=== PATIENT | female | born 1950 | race Caucasian/White ===

== ENCOUNTER 2024-03-18 12:58 | Outpatient (OUT) | payer MEDICARE, SELFPAY ==
[2024-03-18 14:35] LABS: Basophils Absolute Auto 0.1 10^3/uL (0.0-0.1); Basophils Percent Auto 0.9 % (0.2-2.0); Eosinophils Absolute Auto 0.1 10^3/uL (0.0-0.7); Eosinophils Percent Auto 1.7 % (0.9-7.0); Hematocrit 45.4 % (36.0-48.0); Hemoglobin 14.2 g/dL (12.0-16.0); Immature Granulocytes Abs Auto 0.03 10^3/uL (0.00-0.03); Immature Granulocytes Pct Auto 0.4 % (0.0-0.5); Lymphocytes Absolute Auto 2.5 10^3/uL (1.2-3.8); Lymphocytes Percent Auto 35.9 % (20.5-60.0); Mean Corpuscular HGB Conc 31.3 g/dL (29.9-35.2); Mean Corpuscular Hemoglobin 28.5 pg (26.7-34.0); Mean Corpuscular Volume 91.2 fL (81.0-99.0); Mean Platelet Volume 10.1 fL (9.5-13.5); Monocytes Absolute Auto 0.6 10^3/uL (0.3-0.8); Monocytes Percent Auto 8.2 % (1.7-12.0); Neutrophils Absolute Auto 3.7 10^3/uL (1.4-6.5); Neutrophils Percent Auto 52.9 % (43.0-75.0); Platelet Count 292 10^3/uL (150-450); Red Blood Count 4.98 10^6/uL (4.20-5.40); Red Cell Distribution Width 14.2 % (11.0-15.0)
[2024-03-18 14:53] LABS: Erythrocyte Sedimentation Rate 76 mm/hr (<=30)
[2024-03-18 15:56] LABS: Alanine Aminotransferase 19 U/L (14-59); Albumin Globulin Ratio 0.8; Albumin Level 3.1 g/dL (3.4-5.0); Alkaline Phosphatase 102 U/L (46-116); Anion Gap 9.5; Aspartate Amino Transferase 14 U/L (15-37); BUN Creatinine Ratio 17.2; Bilirubin Total 0.5 mg/dL (0.2-1.0); Calcium 8.8 mg/dL (8.5-10.1); Carbon Dioxide 30.3 mmol/L (21.0-32.0); Chloride 105 mmol/L (98-107); Estimated GFR (African America >60 (>=60); Estimated GFR (Non-African Ame 55 (>=60); Globulin 4.1 g/dL; Glucose 88 mg/dL (74-106); Potassium 3.8 mmol/L (3.5-5.1); Sodium 141 mmol/L (136-145); Total Protein 7.2 g/dL (6.4-8.2)
== END 2024-03-18 12:59 | disposition home or self-care (01) ==
PROVIDERS: PCP Family Medicine; Visit Provider Internal Medicine Rheumatology
DX: M06.9 Rheumatoid arthritis, unspecified (principal); M19.90 Unspecified osteoarthritis, unspecified site; Z51.81 Encounter for therapeutic drug level monitoring
CPT/HCPCS: 36415; 80053; 85025; 85652

== ENCOUNTER 2024-04-22 08:23 | Outpatient (OUT) | payer MEDICARE, SELFPAY ==
--- OUTSIDE RECORDS SUMMARY | 2024-04-22 08:34 | XMS_ITS | CCD ---
Author Organization [facility] Care Team Providers Care Stable Helper Name Role Phone REQUEST, NONE LISTED Attending Unavailable REQUEST, NONE LISTED Consulting Unavailable REQUEST, NONE LISTED Admitting Unavailable KUNS, KATE R Primary Care Unavailable Aldo Wynn Unavailable Tanna Paige Unavailable JOSEFINA MELISSA Attending Unavailable NON STAFF Primary Care Provider UnavailMD Aldo Diop Attending Provider Jenna BAND LINING BANDER-SHELL GRADERKate Primary Care Provider KATE THORNTON Referring Unavailable SHANS, ZAYRA Primary Care Unavailable NON STAFF Primary Care Provider UnavailMD Dax Elizabeth Attending Provider KATE THORNTON Attending Unavailable JENNA, KATE SKINNER Referring Unavailable KUNS, ZAYRA Primary Care Unavailable KATE THORNTON Attending Unavailable KATE THORNTON Referring Unavailable KUNS, ZAYRA Primary Care Unavailable KUNS, KATE R Referring Unavailable KUNS, KATE R Primary Care Unavailable KUNS, KATE R Referring Unavailable KUNS, KATE R Primary Care Unavailable Aldo Wynn Attending Unavailable Aldo Wynn Admitting Unavailable NON STAFF Primary Care Unavailable Aldo Wynn Admitting Unavailable NON STAFF Primary Care Unavailable Aldo Wynn Attending Unavailable Dax Coello Attending Unavailable Dax Coello Admitting Unavailable NON STAFF Primary Care Unavailable Allergies Allergy Classification Reported Allergen(s) Allergy Type Date of Onset Reaction(s) Facility (4 sources) Amino Acids; Translations: [LISINOPRIL] Drug Allergy 09-20-2019 [facility] Repository (9 sources) Lisinopril Drug Allergy 09-20-2019 [facility] [employer] Work Phone: (1 source) Lisinopril Drug Allergy 11-07-2023 [facility] Repository Medications Current Medications Medication Drug Class(es) Dates Sig (Normalized) Sig (Original) ALPRAZolam 0.25 mg oral tablet (9 sources) Benzodiazepine Start: 07-18-2022 take 1 tablet by mouth twice daily as needed for anxiety ALPRAZolam (XANAX) 0.25 mg tablet Indications: Situational anxiety Take 1 tablet (0.25 mg total) by mouth 2 (two) times a day as needed for anxiety. 30 tablet 0 07/18/2022 Active take 1 tablet by mouth every eig ht hours Xanax 0.25 MG 1 tablet Orally Three times a day Active amLODIPine 10 mg oral tablet (11 sources) Dihydropyridine Calcium Channel Ariana Start: 05-11-2023 End: 11-21-2023 take 1 tablet by mouth once daily Amlodipine Active 10 MG PO Daily November 07, 2023 1:00am [employer] tablet Orally Once a day; Note: Source Status: Taking; Provider: Tianna Carlson ( ) Aspir-81 81 MG (4 sources) take 1 tablet by mouth once daily Aspir-81 81 MG 1 tablet Orally Once a day Active aspirin 81 mg delayed release oral tablet (6 sources) Platelet Aggregation Inhibitor, Nonsteroidal Anti-inflammatory Drug Start: 11-07-2023 take 1 tablet by mouth once daily Aspirin Active 81 MG PO Daily November 07, 2023 1:00am [employer] tablet Orally Once a day; Note: Source Status: Taking; Provider: Tianna Carlson ( ) cholecalciferol 0.025 mg oral capsule (5 sources) Vitamin D cholecalciferol, vitamin D3, 25 mcg (1,000 unit) capsule daily. 0 Active FLUoxetine 10 mg oral capsule (11 sources) Serotonin Reuptake Inhibitor Start: 11-07-2023 take 1 capsule by mouth once daily in the morning Fluoxetine Active 10 MG PO Daily November 07, 2023 1:00am [employer] capsule in the morning Orally Once a day; Note: Source Status: Taking; Provider: Tianna Carlson ( ) Start: 02-28-2023 End: 11-21-2023 take 1 capsule by mouth in the morning FLUoxetine (PROzac) 20 mg capsule take 1 capsule by mouth in the morning 90 capsule 0 11/21/2023 Active take 1 capsule by [facility] every twenty-four hours FLUoxetine HCl 10 MG 1 capsule in the morning Orally Once a day Active take 1 capsule by [facility] once daily in the morning FLUoxetine HCl 10 MG 1 capsule in the morning Orally Once a day Active aewwctjyootc-tlbe-fcqgd acid (CENTRUM) 18-400 mg-mcg tablet (4 sources) take 1 tablet by mouth in the morning qvgxumajrkhf-seud-siqqg acid (CENTRUM) 18-400 mg-mcg tablet Take 1 tablet by mouth in the morning. 0 Active omeprazole 20 mg delayed release oral capsule (9 sources) Proton Pump Inhibitor take 1 capsule by mouth in the morning omeprazole (PriLOSEC) 20 mg capsule Take 1 capsule (20 mg total) by mouth in the morning. 0 Active predniSONE 10 mg oral tablet (2 sources) Start : 12-06 End: 12-16 take 1 tablet by mouth in the morning predniSONE (DELTASONE) 10 mg tablet Take 1 tablet (10 mg total) by mouth in the morning for 10 days. 10 tablet 0 12/07/2023 12/17/2023 Active rosuvastatin calcium 20 mg oral tablet (11 sources) HMG-CoA Reductase Inhibitor Start : 05-11 End: 11-20 take 1 tablet by mouth once daily Rosuvastatin Active 20 MG PO Daily November 07, 2023 1:00am [employer] tablet Orally Once a day; Note: Source Status: Taking; Provider: Tianna Carlson ( ) Completed/Discontinued Medications Medication Drug Class(es) Dates Sig (Normalized) Sig (Original) amoxicillin 875 mg oral tablet (2 sources) Penicillin-class Antibacterial Start: 2 take 1 tablet by mouth every twelve hours Amoxicillin 875 MG 1 tablet Orally every 12 hrs for 7 days Aug, Not-Taking/PRN diclofenac sodium 75 mg delayed release oral tablet (4 sources) Nonsteroidal Anti-inflammatory Drug Start: 1 take 1 tablet by mouth every twelve hours Diclofenac Sodium 75 MG 1 tablet as needed Orally Twice a day for 30 day(s) Aug, Not-Taking/PRN methylPREDNISolone 4 mg oral tablet (2 sources) Corticosteroid Start: 2 methylPREDNISolone 4 MG as directed Orally Once a day for 6 days Aug, Not-Taking/PRN multivitamin with iron (ONE DAILY PLUS IRON) tablet (2 sources) End: multivitamin with iron (ONE DAILY PLUS IRON) tablet every other day. 0 11/28/2023 Discontinued (Patient Stopped On Own) multivitamin wit h iron (ONE DAILY PLUS IRON) tablet every other day. 0 Active traMADol hydrochloride 50 mg oral tablet (7 sources) Opioid Agonist Start: 08-17-2021 End: 11-07-2023 take 1 tablet by mouth four times daily Tramadol (Ultram) 50 mg tablet Discontinued 50 MG PO Four times daily 08 06August 17, 2021 1:00am November 07, 2023 10:40am take 1 tablet by mele th every twenty-four hours traMADol HCl 50 MG 1 tablet as needed Orally Once a day Active triamcinolone acetonide 40 mg/ml injectable suspension (3 sources) Corticosteroid Start: 10-03-2023 Kenalog-40 Sep, 40 mg Start: 08-19-2021 Kenalog -40 mg Aug, 40 mg Problems Active Problems Problem Classification Problem Date Documented Da te Episodic/Chronic Anxiety disorders (2 sources) Panic disorder [episodic paroxysmal anxiety]; Translations: [Other specified anxiety disorders] Onset: 02-01-2024 Chronic Cardiac and circulatory congenital anomalies (5 sources) 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; Translations: [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] Onset: 10-02-2019 10-02-2019 Chronic Cardiac dysrhythmias (3 sources) Palpitations; Translations: [Palpitations] Onset: 11-28-2023 11-28-2023 Episodic Chronic kidney disease (6 sources) Chronic kidney disease stage 3A ; Translations: [Stage 3a chronic kidney disease] Onset: 04-02-2020 07-18-2022 Chronic Chronic kidney disease (2 sources) Chronic kidney disease; Translations: [Chronic kidney disease, stage 3a] Onset: 07-18-2022 Disorders of lipid metabolism (8 sources) Mixed hyperlipidemia; Translations: [Mixed hyperlipidemia] Onset: 02-11-2016 11-21-2023 Chronic Diverticulosis and diverticulitis (5 sources) Diverticulosis of large intestine; Translations: [Diverticulosis of large intestine without perforation or abscess without bleeding] Onset: 10-02-2019 10-02-2019 Chronic Essential hypertension (7 sources) Essential hypertension; Translations: [Essential (primary) hypertension] Onset: 02-11-2016 07-06-2022 Chronic Hypertension with complications and secondary hypertension (5 sources) Chronic kidney disease due to hypertension; Translations: [Hypertensive chronic kidney disease with stage 1 through stage 4 chronic kidney disease, or unspecified chronic kidney disease] Onset: 12-21-2021 07-18-2022 Chronic Immunizations and screening for infectious disease (3 sources) Contact with and (suspected) exposure to other viral communicable diseases; Translations: [Contact with and (suspected) exposure to other viral communicable diseases] Episodic Joint disorders and dislocations; trauma-related (6 sources) Derangement of left knee; Translations: [Unspecified internal derangement of left knee] Onset: 08-19-2021 Resolved: 09-28-2021 Chronic Joint disorders and dislocations; trauma-related (2 sources) Derangement of right knee; Translations: [Unspecified internal derangement of right knee] Chronic Joint disorders and dislocations; trauma-related (2 sources) Acute meniscal tear, medial; Translations: [Other tear of medial meniscus, current injury, right knee, initial encounter] 11-03-2023 Episodic Mood disorders (5 sources) Depressive disorder; Translations: [Depressive disorder] Onset: 02-11-2016 07-06-2022 Chronic Nutritional deficiencies (5 sources) Vitamin D deficiency; Translations: [Vitamin D deficiency, unspecified] Onset: 06-23-2021 07-18-2022 Chronic Osteoarthritis (13 sources) Arthritis of left knee; Translations: [Unilateral primary osteoarthritis, left knee] Onset: 08-19-2021 Resolved: 09-28-2021 Chronic Other gastrointestinal disorders (5 sources) Irritable bowel syndrome; Translations: [Irritable bowel syndrome without diarrhea] Onset: 02-11-2016 07-06-2022 Chronic Other non-epithelial cancer of skin (4 sources) Basal cell carcinoma of scalp; Translations: [Basal cell carcinoma of scalp] Episodic Other non-traumatic joint disorders (1 source) Polyarthritis, unspecified; Translations: [Polyarthritis, unspecified] Onset: 01-23-2024 Chronic Other non-traumatic joint disorders (1 source) Pain in right knee Episodic Other non-traumatic joint disorders (2 sources) Effusion of joint of multiple sites; Translations: [Effusion, unspecified joint] 11-28-2023 Episodic Other non-traumatic joint disorders (3 sources) Effusion, unspecified joint; Translations: [Effusion, unspecified joint] Onset: 11-28-2023 Episodic Otitis media and related conditions (1 source) Otitis media, unspecified, bilateral Episodic Sprains and strains (3 sources) Sprain of knee; Translations: [Sprain of unspecified site of left knee, initial encounter] 08-16-2023 Episodic Unclassified (1 source) swallen finger ,toes hands thighs Onset: 11-28-2023 Unclassified (1 source) Unilateral primary osteoarthritis, right knee; Translations: [Unilateral primary osteoarthritis, right knee] Onset: 10-24-2023 Unclassified (1 source) Pain in right knee; Translations: [Pain in right knee] Onset: 10-03-2023 Past or Other Problems Problem Classification Problem Date Documented Da te Episodic/Chronic Diabetes mellitus without complication (5 sources) Impaired fasting glycemia; Translations: [Impaired fasting glucose] Onset: 02-12-2016 07-06-2022 Episodic Gastrointestinal hemorrhage (5 sources) Rectal hemorrhage; Translations: [Hemorrhage of anus and rectum] Onset: 09-20-2019 10-02-2019 Episodic Mood disorders (5 sources) Mood disorders Onset: 03-20-2023 Resolved: 11-28-2023 03-20-2023 Other female genital disorders (5 sources) Polyp at cervical os; Translations: [Polyp of cervix uteri] Onset: 09-18-2019 07-06-2022 Episodic Other non-traumatic joint disorders (2 sources) Pain in left knee Onset: 08-19-2021 Resolved: 09-28-2021 Episodic Other nutritional; endocrine; and metabolic disorders (5 sources) Morbid obesity; Translations: [Morbid (severe) obesity due to excess calories] Onset: 09-18-2019 Resolved: 11-28-2023 07-06-2022 Chronic Results Test Name Value Interpretation Reference Range Facility COMPREHENSIVE METABOLIC PANE Bijan 02-01-2024 Albumin [Mass/Vol] 4.0 g/dL Normal 3.2-5.3 [facility] Comment on above: Performed By: #### C , 84270-1 #### [facility] ([id number]) [address], [address] [place] [address] ALP [Catalytic activity/Vol] 103 U/L Normal 39-130 [facility] Comment on above: Performed By: #### Pete VINES, 69233-4 #### [facility] ([id number]) [address], [address] [place] [address] ALT [Catalytic activity/Vol] 15 U/L Normal 0-31 [facility] Comment on above: Performed By: #### Pete VINES, 37423-6 #### [facility] ([id number]) [address], [address] [place] [address] Anion gap [Moles/Vol] 10 mmol/L Normal 5-15 [facility] Comment on above: Performed By: #### Pete VINES, 99925-8 #### [facility] ([id number]) [address], [address] [place] [address] AST [Catalytic activity/Vol] 15 U/L Normal 0-41 [facility] Comment on above: Performed By: #### Pete VINES, 32211-2 #### [facility] ([id number]) [address], [address] [place] [address] Bilirubin [Mass/Vol] 0.4 mg/dL Normal 0.3-1.2 [facility] Comment on above: Performed By: #### Pete VINES, 21488-0 #### [facility] ([id number]) [address], [address] [place] [address] Calcium [Mass/Vol] 8.9 mg/dL Normal 8.5-10.5 [facility] Comment on above: Performed By: #### Pete VINES, 68354-7 #### [facility] ([id number]) [address], [address] [place] [address] Chloride [Moles/Vol] 105 mmol/L Normal 98-109 [facility] Comment on above: Performed By: #### C JASMYN, 45562-7 #### [facility] ([id number]) [address], [address] [place] [address] CO2 [Moles/Vol] 24 mmol/L Normal 22-32 [facility] Comment on above: Performed By: #### Pete VINES, 63608-8 #### [facility] ([id number]) [address], [address] [place] [address] Creatinine [Mass/Vol] 1.00 mg/dL Normal 0.40-1.00 [facility] Comment on above: Result Comment: METH OD TRACEABLE TO IDMS STANDARD Performed By: #### Pete VINES, 55110-7 #### [facility] ([id number]) [address], [address] [place] [address] GFR/1.73 sq M.predicted among non-blacks MDRD (S/P/Bld) [Vol rate/Area] 60 mL/min/{1.73_m2} Normal >59 [facility] Comment on above: Result Comment: Reported eGFR is based on the CKD-EPI 2020 equation that does not use a race coefficient. Performed By: #### Pete VINES, 57153-1 #### [facility] ([id number]) [address], [address] [place] [address] Glucose [Mass/Vol] 100 mg/dL High 65-99 [facility] Comment on above: Performed By: #### Pete VINES, 73259-9 #### [facility] ([id number]) [address], [address] [place] [address] Potassium [Moles/Vol] 4.3 mmol/L Normal 3.5-5.0 [facility] Comment on above: Performed By: #### Pete VINES, 90722-5 #### [facility] ([id number]) [address], [address] [place] [address] Protein [Mass/Vol] 7.6 g/dL Normal 6.0-8.0 [facility] Comment on above: Performed By: #### Pete VINES, 10480-2 #### [facility] ([id number]) [address], [address] [place] [address] Sodium [Moles/Vol] 139 mmol/L Normal 134-146 [facility] Comment on above: Performed By: #### Pete VINES, 29332-8 #### [facility] ([id number]) [address], [address] [place] [address] Urea nitrogen [Mass/Vol] 21 mg/dL Normal 5-27 [facility] Comment on above: Performed By: #### Pete VINES, 12246-5 #### [facility] ([id number]) [address], [address] [place] [address] Lipid 1996 panelon 4 Cholesterol [Mass/Vol] 189 mg/dL Normal 150-200 [facility] Comment on above: Performed By: #### Pete VINES, 07132-5 #### [facility] ([id number]) [address], [address] [place] [address] Cholesterol in HDL [Mass/Vol] 65 mg/dL Normal >39 [facility] Comment on above: Result Comment: HDL <40 mg/dL - High Risk HDL > or = 40mg/dL- Desirable HDL >60 mg/dL - Negative Risk Performed By: #### Pete VINES, 10357-1 #### [facility] ([id number]) [address], [address] [place] [address] Cholesterol in LDL [Mass/Vol] 106 mg/dL Normal <130 [facility] Comment on above: Result Comment: LDL <100 mg/dL - Desirable LDL >160 mg/dL - High Risk Performed By: #### C JASMYN, 28330-4 #### [facility] ([id number]) [address], [address] [place] [address] Cholesterol in VLDL [Mass/Vol] 18 mg/dL Normal 0-30 [facility] Comment on above: Performed By: #### C JASMYN, 96662-8 #### [facility] ([id number]) [address], [address] [place] [address] CHOLESTEROL:HDL 2.9 Normal 1.0-5.0 [facility] Comment on above: Performed By: #### C JASMYN, 95258-8 #### [facility] ([id number]) [address], [address] [place] [address] Triglyceride [Mass/Vol] 91 mg/dL Normal 27-150 [facility] Comment on above: Performed By: #### C JASMYN, 73453-4 #### [facility] ([id number]) [address], [address] [place] [address] MANUEL Antinuclear Antibodieson 01-23-2024 Antinuclear Abs, IFA Negative Normal . [facility] Comment on above: Result Comment: Nega tive <1:80 Borderline 1:80 Positive >1:80 ICAP nomenclature: AC-0 For more information about Hep-2 cell patterns use ANApatterns.org, the official website for the International Consensus on Antinuclear Antibody (MANUEL) Patterns (ICAP). Performed at: - [facility] [id number] Lard Renderer: Sly Mack PhD, Phone: [phone] PERFORMED BY: [facility] [place] [address] PATHOLOGIST STATISTICAL ANALYST AYO CRUZ M.D. Performed By: #### A LDOLASE, MANUEL #### [facility] , #### CK, CMP, CRP, T4F, TSH3, CBC, ESR #### [facility] [address] [place] [address] [place] Alanine aminotransferase [En zymatic activity/volume] in Serum or PlasmaOrdered By: Dax Coello on 01-23-2024 ALT [Catalytic activity/Vol] 24 U/L Normal 7-52 [facility] Comment on above: Performed By: #### A LDOLASE, MANUEL #### [facility] , #### CK, CMP, CRP, T4F, TSH3, CBC, ESR #### [facility] [address] [place] [address] [place] Albumin [Mass/volume] in Ser um or Plasma by Bromocresol green (BCG) dye binding methoOrdered By: Dax Coello on 01-23-2024 Albumin BCG dye [Mass/Vol] 4.3 g/dL 3.5-5.7 [facility] Aldolaseon 01-23-2024 Aldolase 3.3 U/L Normal 3.3-10.3 [facility] Comment on above: Result Comment: Perf ormed at: - [facility] [address] [id number] Lard Renderer: Sly Mack PhD, Phone: [phone] PERFORMED BY: [place] [address] PATHOLOGIST STATISTICAL ANALYST AYO CRUZ M.D. Performed By: #### A LDOLASE, MANUEL #### [facility] , #### CK, CMP, CRP, T4F, TSH3, CBC, ESR #### [facility] [address] [place] [address] [place] Alkaline phosphatase [Enzyma tic activity/volume] in Serum or PlasmaOrdered By: Dax Coello on 01-23-2024 ALP [Catalytic activity/Vol] 119 U/L High 34-104 [facility] Comment on above: Performed By: #### A LDOLASE, MANUEL #### [facility] , #### CK, CMP, CRP, T4F, TSH3, CBC, ESR #### [address] Aspartate aminotransferase [ Enzymatic activity/volume] in Serum or PlasmaOrdered By: aDx Coello on 01-23-2024 AST [Catalytic activity/Vol] 30 U/L Normal 13-39 [facility] Comment on above: Performed By: #### A LDOLASE, MANUEL #### [facility] , #### CK, CMP, CRP, T4F, TSH3, CBC, ESR #### [address] Automated basophil %Ordered By: Dax Coello on 01-23-2024 Basophils/100 WBC (Bld) 0.9 % Normal . [facility] Comment on above: Performed By: #### A LDOLASE, MANUEL #### [facility] , #### CK, CMP, CRP, T4F, TSH3, CBC, ESR #### [address] Automated basophil countOrde red By: Dax Coello on 01-23-2024 Basophils (Bld) [#/Vol] 0.1 10*3/uL Normal 0.0-0.2 [facility] Comment on above: Performed By: #### A LDOLASE, MANUEL #### [facility] , #### CK, CMP, CRP, T4F, TSH3, CBC, ESR #### [address] Automated blood monocyte cou ntOrdered By: Dax Coello on 01-23-2024 Monocytes (Bld) [#/Vol] 0.5 10*3/uL Normal 0.0-0.8 [facility] Comment on above: Performed By: #### A LDOLASE, MANUEL #### [facility] , #### CK, CMP, CRP, T4F, TSH3, CBC, ESR #### [address] Automated eosinophil %Ordere d By: Dax Vergararow on 01-23-2024 Eosinophils/100 WBC (Bld) 2.4 % Normal . [facility] Comment on above: Performed By: #### A LDOLASE, MANUEL #### [facility] , #### CK, CMP, CRP, T4F, TSH3, CBC, ESR #### [facility] [address] Automated eosinophil countOr dered By: Dax Coello on 01-23-2024 Eosinophils (Bld) [#/Vol] 0.2 10*3/uL Normal 0.0-0.45 [facility] Comment on above: Performed By: #### A LDOLASE, MANUEL #### [facility] , #### CK, CMP, CRP, T4F, TSH3, CBC, ESR #### [facility] [address] [place] [address] Automated monocyte %Ordered By: Dax Vergararow on 01-23-2024 Monocytes/100 WBC (Bld) 6.8 % Normal . [facility] Comment on above: Performed By: #### A LDOLASE, MANUEL #### [facility] , #### CK, CMP, CRP, T4F, TSH3, CBC, ESR #### [address] Automated neutrophil %Ordere d By: Dax Vergararow on 01-23-2024 Neutrophils/100 WBC (Bld) 61.7 % Normal . [facility] Comment on above: Performed By: #### A LDOLASE, MANUEL #### [facility] , #### CK, CMP, CRP, T4F, TSH3, CBC, ESR #### [facility] [address] [place] [address] Bilirubin.total [Mass/volume ] in Serum or PlasmaOrdered By: Dax Vergararow on 01-23-2024 Bilirubin [Mass/Vol] 0.5 mg/dL Normal 0.3-1.0 [facility] Comment on above: Performed By: #### A LDOLASE, MANUEL #### [facility] , #### CK, CMP, CRP, T4F, TSH3, CBC, ESR #### [facility] [address] [place] [address] [place] C reactive protein [Mass/vol ume] in Serum or PlasmaOrdered By: Dax Coello on 01-23-2024 CRP [Mass/Vol] 1.0 mg/dL 0.0-0.5 [facility] C-Reactive Proteinon 024 C-Reactive Protein 1.0 mg/dL High 0.0-0.5 [facility] Comment on above: Performed By: #### A LDOLASE, MANUEL #### [facility] , #### CK, CMP, CRP, T4F, TSH3, CBC, ESR #### [place] [address] [place] Calcium [Mass/volume] in Ser um or PlasmaOrdered By: Dax Coello on 01-23-2024 Calcium [Mass/Vol] 9.6 mg/dL Normal 8.6-10.3 [facility] Comment on above: Performed By: #### A LDOLASE, MANUEL #### [facility] , #### CK, CMP, CRP, T4F, TSH3, CBC, ESR #### [facility] [address] [place] [address] [place] Carbon dioxide, total [Moles /volume] in Serum or PlasmaOrdered By: Dax Coello on 01-23-2024 CO2 [Moles/Vol] 25.5 mmol/L Normal 21.0-31.0 [facility] Comment on above: Performed By: #### A LDOLASE, MANUEL #### [facility] , #### CK, CMP, CRP, T4F, TSH3, CBC, ESR #### [place] [address] [place] Chloride [Moles/volume] in S beatris or PlasmaOrdered By: Dax Coello on 01-23-2024 Chloride [Moles/Vol] 107 mmol/L Normal 98-107 [facility] Comment on above: Performed By: #### A LDOLASE, MANUEL #### [facility] , #### CK, CMP, CRP, T4F, TSH3, CBC, ESR #### [facility] [address] Complete Blood Count Auto Di ffon 01-23-2024 Mean Corpuscular HGB Conc 33.2 g/dL Normal 32.0-35.0 [facility] Comment on above: Performed By: #### A LDOLASE, MANUEL #### [facility] , #### CK, CMP, CRP, T4F, TSH3, CBC, ESR #### [address] NRBC% 0.2 /100{WBC} Normal 0-0.[address] [facility] Comment on above: Performed By: #### A LDOLASE, MANUEL #### [facility] , #### CK, CMP, CRP, T4F, TSH3, CBC, ESR #### [address] Comprehensive Metabolic Pane bijan 01-23-2024 Albumin [Mass/Vol] 4.3 g/dL Normal 3.5-5.7 [facility] Comment on above: Performed By: #### A LDOLASE, MANUEL #### [facility] , #### CK, CMP, CRP, T4F, TSH3, CBC, ESR #### [place] [address] [place] GFR/1.73 sq M.predicted MDRD (S/P/Bld) [Vol rate/Area] 47.618 mL/min/{1.73_m2} Normal [facility] Comment on above: Performed By: #### A LDOLASE, MANUEL #### [facility] , #### CK, CMP, CRP, T4F, TSH3, CBC, ESR #### [facility] [address] [place] [address] Creatine kinase [Enzymatic a ctivity/volume] in Serum or PlasmaOrdered By: Dax Mode on 01-23-2024 CK [Catalytic activity/Vol] 69 U/L Normal 30-223 [facility] Comment on above: Result Comment: PERF ORMED BY: [place] [address] PATHOLOGIST STATISTICAL ANALYST AYO CRUZ M.D. Performed By: #### A LDOLASE, MANUEL #### [facility] , #### CK, CMP, CRP, T4F, TSH3, CBC, ESR #### [address] Creatinine [Mass/volume] in Serum or PlasmaOrdered By: Dax Coello on 01-23-2024 Creatinine [Mass/Vol] 1.21 mg/dL High 0.60-1.20 [facility] Comment on above: Performed By: #### A LDOLASE, MANUEL #### [facility] , #### CK, CMP, CRP, T4F, TSH3, CBC, ESR #### [facility] [address] [place] [address] Erythrocyte Sedimentation Ra solo 01-23-2024 ESR (Bld) [Velocity] 58 mm/h High 0-29 [facility] Comment on above: Result Comment: PERF ORMED BY: [place] [address] PATHOLOGIST STATISTICAL ANALYST AYO CRUZ M.D. Performed By: #### A LDOLASE, MANUEL #### [facility] , #### CK, CMP, CRP, T4F, TSH3, CBC, ESR #### [facility] [address] [place] [address] Erythrocyte distribution wid th [Ratio] by Automated countOrdered By: Dax Mode on 01-23-2024 Erythrocyte distribution width (RBC) [Ratio] 15.3 % Normal 11.9-15.3 [facility] Comment on above: Performed By: #### A LDOLASE, MANUEL #### [facility] , #### CK, CMP, CRP, T4F, TSH3, CBC, ESR #### [facility] [address] Erythrocyte sedimentation ra te by Photometric methodOrdered By: Daxsilvia Coello on 01-23-2024 ESR Photometric method (Bld) [Velocity] 58 mm/hr 0-29 [facility] Erythrocytes [#/volume] in B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 6-22 [facility] Comment on above: Performed By: #### 1 023, 7600 #### [facility] of [address], [address] [place] [address] World Geography Teacher: Napoleon Anne MD Calcium [Mass/Vol] 9.5 mg/dL Normal 8.6-10.4 [facility] Comment on above: Performed By: #### 1 023, 7600 #### [facility] [address], [address] [place] [address] World Geography Teacher: Napoleon Anne MD Chloride [Moles/Vol] 106 mmol/L Normal 98-110 [facility] Comment on above: Performed By: #### 1 023, 7600 #### [facility] [address], [address] [place] [address] World Geography Teacher: Napoleon Anne MD CO2 [Moles/Vol] 29 mmol/L Normal 20-32 [facility] Comment on above: Performed By: #### 1 023, 7600 #### [facility] [address], [address] [place] [address] World Geography Teacher: Napoleon Anne MD Creatinine [Mass/Vol] 0.86 mg/dL Normal 0.60-0.[address] [facility] [address] [facility] Comment on above: Result Comment: For patients >49 years of age, the reference limit for Creatinine is approximately 13% higher for people identified as -Uzbek. Performed By: #### 1 0231, 7600 #### [facility] [address], [address] [place] [address] World Geography Teacher: Napoleon Anne MD eGFR NON-AFR. [place] 68 mL/min/1.73m2 Normal > OR = 60 [facility] Comment on above: Performed By: #### 1 023, 7600 #### [facility] [place] [address] World Geography Teacher: Napoleon Anne MD GFR/1.73 sq M.predicted among blacks MDRD (S/P/Bld) [Vol rate/Area] 79 mL/min/{1.73_m2} Normal > OR = 60 [facility] Comment on above: Performed By: #### 1 023, 7600 #### [facility] [place] [address] World Geography Teacher: Napoleon Anne MD Globulin (S) [Mass/Vol] 2.7 g/dL Normal 1.9-3.7 [facility] Comment on above: Performed By: #### 1 230, 0 #### [facility] [place] [address] World Geography Teacher: Napoleon Anne MD Glucose [Mass/Vol] 100 mg/dL High 65-99 [facility] Comment on above: Result Comment: Fasting reference interval For someone without known diabetes, a glucose value between 100 and 125 mg/dL is consistent with prediabetes and should be confirmed with a follow-up test. Performed By: #### 1 230, 0 #### [facility] [place] [address] World Geography Teacher: Napoleon Anne MD Potassium [Moles/Vol] 4.1 mmol/L Normal 3.5-5.[address] [facility] Comment on above: Performed By: #### 1 023, 7600 #### [facility] [place] [address] World Geography Teacher: Napoleon Anne MD Protein [Mass/Vol] 7.0 g/dL Normal 6.1-8.1 [facility] Comment on above: Performed By: #### 1 023, 7600 #### [facility] [address] [place] [address] World Geography Teacher: Napoleon Anne MD Sodium [Moles/Vol] 141 mmol/L Normal 135-146 [facility] Comment on above: Performed By: #### 1 0231, 7600 #### [facility] [address], [address] [place] [address] World Geography Teacher: Napoleon Anne MD Urea nitrogen [Mass/Vol] 14 mg/dL Normal 7-25 [facility] Comment on above: Performed By: #### 1 0231, 7600 #### [facility] [address], [address] [place] [address] World Geography Teacher: Napoleon Anne MD LIPID PANEL, [facility] 12-03 Cholesterol [Mass/Vol] 191 mg/dL Normal <200 [facility] Comment on above: Order Comment: FASTI NG:YES FASTING: YES Performed By: #### 1 0231, 7600 #### [facility] [place] [address] World Geography Teacher: Napoleon Anne MD Cholesterol in HDL [Mass/Vol] 63 mg/dL Normal > OR = 50 [facility] Comment on above: Order Comment: FASTI NG:YES FASTING: YES Performed By: #### 1 0231, 7600 #### [facility] [place] [address] World Geography Teacher: Napoleon Anne MD Cholesterol in LDL [Mass/Vol] 103 mg/dL High [facility] Comment on above: Order Comment: FASTI NG:YES FASTING: YES Result Comment: Refe rence range: <100 Desirable range <100 mg/dL for primary prevention; <70 mg/dL for patients with CHD or diabetic patients with > or = 2 CHD risk factors. LDL-C is now calculated using the Victoriano calculation, which is a validated novel method providing better accuracy than the Friedewald equation in the estimation of LDL-C. Obinna DELCID et al. ALIREZA. 2013;310(19): 1219-5895 (http://education.Spark.Aptela/faq/JID235) Performed By: #### 1 023, 7600 #### [facility] [address], [address] [place] [address] World Geography Teacher: Napoleon Anne MD Cholesterol.total/Choles terol in HDL [Mass ratio] 3.0 {ratio} Normal <5.0 [facility] Comment on above: Order Comment: FASTI NG:YES FASTING: YES Performed By: #### 1 023, 7600 #### [facility] [address], [address] [place] [address] World Geography Teacher: Napoleon Anne MD NON HDL CHOLESTEROL 128 mg/dL (calc) Normal <130 [facility] Comment on above: Order Comment: FASTI NG:YES FASTING: YES Result Comment: For patients with diabetes plus 1 major ASCVD risk factor, treating to a non-HDL-C goal of <100 mg/dL (LDL-C of <70 mg/dL) is considered a therapeutic option. Performed By: #### 1 023, 0 #### [facility] [address], [address] [place] [address] World Geography Teacher: Napoleon Anne MD Triglyceride [Mass/Vol] 146 mg/dL Normal <150 [facility] Comment on above: Order Comment: FASTI NG:YES FASTING: YES Performed By: #### 1 023, 7600 #### [facility] [address], [address] [place] [address] World Geography Teacher: Napoleon Anne MD BASIC METABOLIC PANELon 10-2 0-2020 BUN/CREATININE RATIO NOT APPLICABLE Normal 6-22 [facility] Comment on above: Performed By: #### 7 18, 41804, 49373, 905, 6399, 622 #### [facility] [address], [address] [place] [address] World Geography Teacher: Napoleon Anne MD Calcium [Mass/Vol] 9.1 mg/dL Normal 8.6-10.4 [facility] Comment on above: Performed By: #### 7 18, 11339, 06408, 905, 6399, 622 #### [facility] of [address], [address] [place] [address] World Geography Teacher: Napoleon Anne MD Chloride [Moles/Vol] 103 mmol/L Normal 98-110 [facility] Comment on above: Performed By: #### 7 18, 52322, 87404, 905, 6399, 622 #### [facility] [address], [address] [place] [address] World Geography Teacher: Napoleon Anne MD CO2 [Moles/Vol] 22 mmol/L Normal 20-32 [facility] Comment on above: Performed By: #### 7 18, 81669, 30336, 905, 6399, 622 #### [facility] [place] [address] World Geography Teacher: Napoleon Anne MD Creatinine [Mass/Vol] 0.93 mg/dL Normal 0.60-0.[address] [facility] [address] [facility] Comment on above: Result Comment: For patients >49 years of age, the reference limit for Creatinine is approximately 13% higher for people identified as -Uzbek. Performed By: #### 7 18, 88456, 46850, 905, 6399, 622 #### [facility] [place] [address] World Geography Teacher: Napoleon Anne MD eGFR NON-AFR. [place] 62 mL/min/1.73m2 Normal > OR = 60 [facility] Comment on above: Performed By: #### 7 18, 69854, 11562, 905, 6399, 622 #### [facility] [address], [address] [place] [address] World Geography Teacher: Napoleon Anne MD GFR/1.73 sq M.predicted among blacks MDRD (S/P/Bld) [Vol rate/Area] 72 mL/min/{1.73_m2} Normal > OR = 60 [facility] Comment on above: Performed By: #### 7 18, 68595, 66088, 905, 6399, 622 #### [facility] [address], [address] [place], [place] [address] World Geography Teacher: Napoleon Anne MD Glucose [Mass/Vol] 100 mg/dL High 65-99 [facility] Comment on above: Result Comment: Fasting reference interval For someone without known diabetes, a glucose value between 100 and 125 mg/dL is consistent with prediabetes and should be confirmed with a follow-up test. Performed By: #### 7 18, 14271, 59947, 905, 6399, 622 #### [facility] [place] [address] World Geography Teacher: Napoleon Anne MD Potassium [Moles/Vol] 4.0 mmol/L Normal 3.5-5.[address] [facility] Comment on above: Performed By: #### 7 18, 06560, 58628, 905, 6399, 622 #### [facility] [place] [address] World Geography Teacher: Napoleon Anne MD Sodium [Moles/Vol] 139 mmol/L Normal 135-146 [facility] Comment on above: Performed By: #### 7 18, 98975, 69211, 905, 6399, 622 #### [facility] [place] [address] World Geography Teacher: Napoleon Anne MD Urea nitrogen [Mass/Vol] 15 mg/dL Normal 7-25 [facility] Comment on above: Performed By: #### 7 18, 67257, 25825, 905, 6399, 622 #### [facility] [place] [address] World Geography Teacher: Napoleon Anne MD CBC (INCLUDES DIFF/PLT)on Basophils (Bld) [#/Vol] 0.043 10*3/uL Normal 0-200 [facility] Comment on above: Performed By: #### 7 18, 51117, 92972, 905, 6399, 622 #### [facility] [place] [address] World Geography Teacher: Napoleon Anne MD Basophils/100 WBC (Bld) 0.7 % Normal [facility] Comment on above: Performed By: #### 7 18, 90839, 24895, 905, 6399, 622 #### [facility] of [place] [address] World Geography Teacher: Napoleon Anne MD Eosinophils (Bld) [#/Vol] 0.061 10*3/uL Normal 15-500 [facility] Comment on above: Performed By: #### 7 18, 80932, 21767, 905, 6399, 622 #### [facility] of [place] [address] World Geography Teacher: Napoleon Anne MD Eosinophils/100 WBC (Bld) 1.0 % Normal [facility] Comment on above: Performed By: #### 7 18, 44810, 94829, 905, 6399, 622 #### [facility] of [place] [address] World Geography Teacher: Napoleon Anne MD Erythrocyte distribution width (RBC) [Ratio] 14.7 % Normal 11.0-15.0 [facility] Comment on above: Performed By: #### 7 18, 20545, 41101, 905, 6399, 622 #### [facility] of [place] [address] World Geography Teacher: Napoleon Anne MD Hematocrit (Bld) [Volume fraction] 41.5 % Normal 35.0-45.0 [facility] Comment on above: Performed By: #### 7 18, 83341, 63799, 905, 6399, 622 #### [facility] of [place] [address] World Geography Teacher: Napoleon Anne MD Hemoglobin (Bld) [Mass/Vol] 13.5 g/dL Normal 11.7-15.5 [facility] Comment on above: Performed By: #### 7 18, 61190, 41192, 905, 6399, 622 #### [facility] of [address] [place] [address] World Geography Teacher: Napoleon Anne MD Lymphocytes (Bld) [#/Vol] 1.928 10*3/uL Normal 850-3900 [facility] Comment on above: Performed By: #### 7 18, 33114, 08106, 905, 6399, 622 #### [facility] of [place] [address] World Geography Teacher: Napoleon Anne MD Lymphocytes/100 WBC (Bld) 31.6 % Normal [facility] Comment on above: Performed By: #### 7 18, 11702, 90754, 905, 6399, 622 #### [facility] [place] [address] World Geography Teacher: Napoleon Anne MD MCH (RBC) [Entitic mass] 28.3 pg Normal 27.0-33.0 [facility] Comment on above: Performed By: #### 7 18, 47859, 35487, 905, 6399, 622 #### [facility] of [place] [address] World Geography Teacher: Napoleon Anne MD MCHC (RBC) [Mass/Vol] 32.5 g/dL Normal 32.0-36.[address] [facility] Comment on above: Performed By: #### 7 18, 74557, 66669, 905, 6399, 622 #### [facility] of [place] [address] World Geography Teacher: Napoleon Anne MD MCV (RBC) [Entitic vol] 87.0 fL Normal 80.0-100.0 [facility] Comment on above: Performed By: #### 7 18, 02956, 06448, 905, 6399, 622 #### [facility] of [place] [address] World Geography Teacher: Napoleon Anne MD Monocytes (Bld) [#/Vol] 0.409 10*3/uL Normal 200-950 [facility] Comment on above: Performed By: #### 7 18, 73686, 14348, 905, 6399, 622 #### [facility] of [place] [address] World Geography Teacher: Napoleon Anne MD Monocytes/100 WBC (Bld) 6.7 % Normal [facility] Comment on above: Performed By: #### 7 18, 40150, 25093, 905, 6399, 622 #### [facility] [place] [address] World Geography Teacher: Napoleon Anne MD Neutrophils (Bld) [#/Vol] 3.66 10*3/uL Normal 0607-4963 [facility] Comment on above: Performed By: #### 7 18, 74314, 32145, 905, 6399, 622 #### [facility] [place] [address] World Geography Teacher: Napoleon Anne MD Neutrophils/100 WBC (Bld) 60 % Normal [facility] Comment on above: Performed By: #### 7 18, 91667, 24640, 905, 6399, 622 #### [facility] of [place] [address] World Geography Teacher: Napoleon Anne MD Platelet mean volume (Bld) [Entitic vol] 10.5 fL Normal 7.5-12.5 [facility] Comment on above: Performed By: #### 7 18, 46046, 71829, 905, 6399, 622 #### [facility] of [place] [address] World Geography Teacher: Napoleon Anne MD Platelets (Bld) [#/Vol] 307 10*3/uL Normal 140-400 [facility] Comment on above: Performed By: #### 7 18, 05383, 15167, 905, 6399, 622 #### [facility] of [place] [address] World Geography Teacher: Napoleon Anne MD RBC (Bld) [#/Vol] 4.77 10*6/uL Normal 3.80-5.10 [facility] Comment on above: Performed By: #### 7 18, 85320, 25962, 905, 6399, 622 #### [facility] [address], [address] [place] [address] World Geography Teacher: Napoleon Anne MD WBC (Bld) [#/Vol] 6.1 10*3/uL Normal 3.8-10.8 [facility] Comment on above: Performed By: #### 7 18, 30328, 99036, 905, 6399, 622 #### [facility] [address], [address] [place] [address] World Geography Teacher: Napoleon Anne MD MAGNESIUMon 06-23-2021 Magnesium [Mass/Vol] 2.0 mg/dL Normal 1.5-2.5 [facility] Comment on above: Order Comment: FASTI NG:UNKNOWN FASTING: UNKNOWN Performed By: #### 7 18, 58733, 19919, 905, 6399, 622 #### [facility] [address], [address] [place] [address] World Geography Teacher: Napoleon Anne MD PHOSPHATE ( PHOSPHORUS)on 06-23-2021 Phosphate [Mass/Vol] 3.8 mg/dL Normal 2.1-4.3 [facility] Comment on above: Performed By: #### 7 18, 47997, 11926, 905, 6399, 622 #### [facility] [place] [address] World Geography Teacher: Napoleon Anne MD PTH, INTACT WITHOUT CALCIUMo n 06-23-2021 PARATHYROID HORMONE, INTACT 95 pg/mL High 14-64 [facility] Comment on above: Result Comment: Interpretive Guide Intact PTH Calcium ------- Normal Parathyroid Normal Normal Hypoparathyroidism Low or Low Normal Low Hyperparathyroidism Primary Normal or High High Secondary High Normal or Low Tertiary High High Non-Parathyroid Hypercalcemia Low or Low Normal High Performed By: #### 7 18, 60334, 32009, 905, 6399, 622 #### [facility] [place] [address] [facility], [address] [place], [place] [id number] World Geography Teacher: Napoleon Anne MD URIC ACIDon 06-23-2021 Urate [Mass/Vol] 4.8 mg/dL Normal 2.5-7.0 [facility] Comment on above: Result Comment: Ther apeutic target for gout patients: <6.0 mg/dL Performed By: #### 7 18, 46175, 15781, 905, 6399, 622 #### [facility] [place] [address] [facility], [address] [place], [place] [id number] World Geography Teacher: Napoleon Anne MD VITAMIN D,25-OH,TOTAL,IAon 1 VITAMIN D,25-OH,TOTAL,IA 26 ng/mL Low 30-100 [facility] Comment on above: Result Comment: Lanie min D Status 25-OH Vitamin D: Deficiency: <20 ng/mL Insufficiency: 20 - 29 ng/mL Optimal: > or = 30 ng/mL For 25-OH Vitamin D testing on patients on D2-supplementation and patients for whom quantitation of D2 and D3 fractions is required, the [facility](TM) 25-OH VIT D, (D2,D3), LC/MS/MS is recommended: order code 66433 (patients >2yrs). See Note 1 Note 1 For additional information, please refer to http://education.Spark.Aptela/faq/BWL645 (This link is being provided for informational/ educational purposes only.) Performed By: #### 7 18, 84563, 48791, 905, 6399, 622 #### [facility] [address], [address] [place] [address] World Geography Teacher: Napoleon Anne MD Vital Signs Date Time Vital Sign Value Performing Clinician Facility 11-28-2023 09:01-0400 Body height 157.5 cm aKte Thornton BAND LINING B[employer]LL GRADER Work Phone: [facility] 11-28-2023 09:01-0400 Body mass index (BMI) [Ratio] 37.86 kg/m2 Kate PETERSONSHELL GRADER Work Phone: [facility] 11-28-2023 09:01-0400 Body temperature 98.01 [degF] Kate Thornton APRN-SHELL GRADER Work Phone: [facility] 11-28-2023 09:01-0400 Body weight 93.89 kg Kate PETERSONSHELL GRADER Work Phone: [facility] 11-28-2023 09:01-0400 Diastolic blood pressure 70 mm[Hg] Kate Thornton APRN-SHELL GRADER Work Phone: [facility] 11-28-2023 09:01-0400 Heart rate 119 /min Kate PETERSONSHELL GRADER Work Phone: [facility] 11-28-2023 09:01-0400 Respiratory rate 18 /min Kate PETERSONSHELL GRADER Work Phone: [facility] 11-28-2023 09:01-0400 SaO2% (BldA) [Mass fraction] 95 % Kate PETERSONSHELL GRADER Work Phone: [facility] 11-28-2023 09:01-0400 Systolic blood pressure 90 mm[Hg] Kate PETERSONSHELL GRADER Work Phone: [facility] 11-07-2023 09:42-0500 Body height 157.48 cm [facility] 11-07-2023 09:42-0500 Body mass index (BMI) [Ratio] 37.5 kg/m2 [facility] 11-07-2023 09:42-0500 Body weight 92.98 kg [facility] 10-24-2023 11:23-0500 Diastolic blood pressure 97 mm[Hg] [facility] 10-24-2023 11:23-0500 Heart rate 107 /min [facility] 10-24-2023 11:23-0500 Respiratory rate 18 /min [facility] 10-24-2023 11:23-0500 SaO2% (BldA) [Mass fraction] 94 % [facility] 10-24-2023 11:23-0500 Systolic blood pressure 144 mm[Hg] [facility] 10-24-2023 11:19-0500 Body height 154.94 cm [facility] 10-24-2023 11:19-0500 Body weight 94.34 kg [facility] 10-03-2023 09:45-0500 Body height 154.94 cm Aldo Olexa Other [facility] 10-03-2023 09:45-0500 Body mass index (BMI) [Ratio] 39.3 kg/m2 Aldo Olexa Other [employer] Other 10-03-2023 09:45-0500 Body weight 94.35 kg Aldo Olexa Other [employer] Other 10-03-2023 09:45-0500 Body weight 94.34 kg [facility] [facility] 09-01-2022 12:45-0500 Body height 154.94 cm Tanna Paige Other [employer] Other 09-01-2022 12:45-0500 Body mass index (BMI) [Ratio] 40.24 kg/m2 Tanna Paige Other [employer] Other 09-01-2022 12:45-0500 Body weight 96.62 kg Tanna Paige Other [employer] Other 09-01-2022 12:45-0500 Diastolic blood pressure 75 mm[Hg] Tanna Paige Other [employer] Other 09-01-2022 12:45-0500 Respiratory rate 18 /min Tanna Paige Other [employer] Other 09-01-2022 12:45-0500 SaO2% (BldA) [Mass fraction] 96 % Tanna Paige Other [employer] Other 09-01-2022 12:45-0500 Systolic blood pressure 114 mm[Hg] Tanna Paige Other [employer] Other 09-28-2021 11:15-0500 Body height 154.94 cm Aldo Olexa Other [employer] Other 09-28-2021 11:15-0500 Body mass index (BMI) [Ratio] 41.75 kg/m2 Aldo Olexa Other [employer] Other 09-28-2021 11:15-0500 Body weight 100.25 kg Aldo Olexa Other [employer] Other 08-19-2021 10:30-0500 Body height 154.94 cm Aldo Olexa Other [employer] Other 08-19-2021 10:30-0500 Body mass index (BMI) [Ratio] 41.56 kg/m2 Aldo Olexa Other [employer] Other 08-19-2021 10:30-0500 Body weight 99.79 kg Aldo Olexa Other [employer] Other Encounters Encounter Date Encounter Type Care Provider Facility Start: 02-01-2024 End: 02-02-2024 ambulatory [facility] Syd[facility] Start: 02-01-2024 End: 02-01-2024 ambulatory [facility] Start: 01-23-2024 End: 01-23-2024 Patient encounter procedure [facility] [address] Work Phone: Start: 01-23-2024 End: 01-23-2024 ambulatory NON STAFF [facility] Work Phone: Start: 12-07-2023 Orders Only Kate Thornton [employer] Work Phone: [facility] Comment on above: Erosive (osteo)arthr itis (Primary Dx) Start: 12-04-2023 End: 12-05-2023 ambulatory KATE THORNTON [facility] Start: 11-28-2023 End: 11-29-2023 Orders Only Kate Thornton [employer] [facility] Comment on above: Swelling of multiple joints (Primary Dx) Start: 11-28-2023 End: 11-28-2023 Office outpatient visit 25 minutes Kate Thornton [employer] Work Phone: [facility] Comment on above: Swelling of multiple joints (Primary Dx); Stage 3a chronic kidney disease (CMS-HCC); Palpitations Start: 11-21-2023 Refill Kate Thornton [employer] Work Phone: [facility] Comment on above: Mixed hyperlipidemia Start: 11-07-2023 End: 11-07-2023 Patient encounter procedure [facility] Work Phone: Start: 10-24-2023 End: 10-24-2023 Patient encounter procedure [facility] [address] Work Phone: Start: 10-24-2023 End: 10-24-2023 ambulatory NON STAFF [facility] Work Phone: Start: 10-03-2023 Office outpatient vi sit 25 minutes Aldo Wynn [facility] Start: 10-03-2023 End: 10-03-2023 Patient encounter procedure [facility] Start: 10-03-2023 End: 10-03-2023 ambulatory NON STAFF [employer] Other Start: 10-03-2023 End: 10-03-2023 Patient encounter procedure [facility]- Start: 08-07-2023 End: 08-07-2023 ambulatory JOSEFINA MELISSA Not Available Start: 09-01-2022 End: 09-01-2022 ambulatory Tanna Paige Other [employer] Other Start: 09-01-2022 Office outpatient vi sit 15 minutes Tanna Grecia [facility] Start: 09-28-2021 End: 09-28-2021 ambulatory Aldo Olexa Other [employer] Other Start: 09-28-2021 Office outpatient vi sit 15 minutes Aldo Olexa [facility] Start: 08-19-2021 End: 08-19-2021 ambulatory Aldo Olexa Other [employer] Other Start: 08-19-2021 Office outpatient ne w 30 minutes Aldo Olexa [facility] Start: 10-29-2020 End: 10-30-2020 Patient encounter procedure NONE LISTED REQUEST Facility: Procedures Date Procedure Procedure Detail Performing Clinician Start: 02-01-2024 Follow-up visit Follow-up KATE LOR LENNON JENNA Start: 11-28-2023 Ecg routine ecg w/le ast 12 lds w/i&r Kate Thornton [employer] Work Phone: Start: 11-28-2023 Adult depression scr eening assessment Kate Thornton [employer] Work Phone: Start: 10-24-2023 MRI of right knee Start: 10-03-2023 X-ray of right knee Start: 05-12-2023 Mammography Kate Thornton [employer] Work Phone: Start: 03-20-2023 Adult depression scr eening assessment Kate Thornton [employer] Work Phone: Plan of Treatment Date Care Activity Detail Author Start: 05-12-2025 Screening for malign ant [facility]oplasm [facility] Start: 11-27-2024 Adult [facility]ening [facility] Start: 11-27-2024 Depression Screening [facility]ing [facility] Start: 11-27-2024 Fall Risk Screening Fall [facility] Start: 11-27-2024 Tobacco Screening [facility]ening [facility] Start: 06-02-2024 Adult BMI Screening Adult [facility] Start: 06-02-2024 Tobacco Screening Tobacco [facility]ening [facility] Start: 03-20-2024 Depression Screening Depression Scre [facility]ing [facility] Start: 03-20-2024 Medicare Annual Well ness Visit Medicare Annual Wellness [facility] Start: 03-18-2024 Fall Risk Screening Fall Risk Screen [facility] Start: 01-23-2024 [facility] Start: 11-28-2023 End: 11-27-2024 XR Hand - right 3 Views X-ray hand right minimum 3 views Imaging Routine Swelling of multiple joints Expected: 11/28/2023, Expires: 11/27/2024 [employer] Work Phone: Comment on above: Expected: 11/28/2023 , Expires: 11/27/2024 Start: 01-24-2013 DTaP,Tdap and Td Vac cines (1 - Tdap) DTaP,Tdap and Td Vaccines (1 - Tdap) [facility] Start: 2001 Administration of varicella zoster vaccine Zoster (Shingles) Vaccine (1 of 2) [facility] Start: 1969 Adult BMI Follow Up Plan Adult BMI Follow Up Plan [facility] PO[facility] EKG POCT EKG ECG Rou ivone Palpitations 11/28/2023 10:12 AM EDT [employer] Work Phone: Immunizations Immunization Date Immunization Notes Care Provider Anel newsome 07-21-2022 Covid-19, Mrna, Lnp- s, Bivalent, Pf, 50mcg/0.5ml or 25mcg/0.25ml Kate Thornton [employer] Work Phone: [facility] 07-21-2022 SARS-COV-2 (COVID-19 ) Vaccine, Unspecified Kate Thornton [employer] Work Phone: [facility] 06-29-2021 Influenza Vaccine, Quadrivalent, Adjuvanted Kate Thornton [employer] Work Phone: [facility] 11-03-2020 COVID-19, mRNA, LNP- S, PF, 30mcg/0.3mL Dose Kate Thornton [employer] Work Phone: [facility] 10-29-2020 COVID-19, mRNA, LNP- S, PF, 100mcg/0.5mL Dose Kate Thornton [employer] Work Phone: [facility] 06-02-2020 Influenza Vaccine, Quadrivalent, Adjuvanted Kate Thornton [employer] Work Phone: [facility] 07-18-2018 Influenza, injectabl e, Madin Manning Canine Kidney, preservative free, quadrivalent Kate Thornton [employer] Work Phone: [facility] 07-18-2018 pneumococcal polysaccharide vaccine, 23 valent Kate Thornton [employer] Work Phone: [facility] 02-13-2017 pneumococcal conjuga te vaccine, 13 valent Kate Thornton [employer] Work Phone: [facility] 01-23-2013 TD(adult) unspecifie d formulation Kate Thornton [employer] Work Phone: [facility] Payers Date Payer Category Payer Medicare [id number] 2022 Medicare AETNA MEDICARE A ETNA MEDICARE PLAN (PPO) [id number] 2022-[facility] [phone] [address] [place] [address] [id number] 1959 Self-pay 1950 Unknown [id number] 1950 Unknown [id number] 1950 Unknown [id number] 286 1950 Unknown [id number] 286 1951 Unknown [id number] 286 1951 Unknown [id number] 286 1950 Unknown [id number] 286 Private Health Insurance EB [id number] Unknown [id number] 93 Unknown [id number] 31 Unknown [id number] 31 Unknown [id number] 31 Social History Date Type Detail Facility Start: 10-15-2020 End: 06-02-2023 Sex Assigned At [facility] Start: 08-17-2021 End: 10-03-2023 Tobacco smoking status NHIS Never smoked tobacco (finding) [facility] Start: 1950 Sex Assigned At Female [facility] Start: 09-20-2019 End: 11-28-2023 Tobacco use and exposure Smokeless tobacco non-user [facility] Start: 06-02-2023 End: 11-28-2023 Alcohol intake Current drinker of alcohol (finding) [facility] Start: 10-15-2020 End: 06-02-2023 History of Social function [facility] Adolescent depressio n screening assessment 0 [facility] Start: 09-20-2019 Alcohol Comment Social/occasional [facility] Start: 1950 Sex Assigned At Not on file P [facility] Clinical Notes 12-04-2014 to 11-28-2023 Kate Thornton, [employer] - 11/28/2023 9:00 AM EDT Note Date & Type Note Facility 11-28-2023 History of Present illness Narrative Subjective Patient ID: Lisa Cochran is a 73 y.o. female. For the past week she has felt swollen in the large joints of both hands, right somewhat more than the left There is some redness in the right hand as well, it mostly affects the thumb and 2nd and 3rd joints Also her feet feel swollen to her in the forefoot and toes although no redness or increased discomfort Her knees while always painful feel more swollen, tight and achy than usual She has not had a change in medication recently She is not retaining fluid in her ankles in fact her weight from her last exam is down by 5 lbs She does feel like her heart races when she comes here but not typically, it was missing beats when it was racing when she came in today - she hasn't been lightheaded or dizzy No chest pain or pressure, no shortness of breath No change in bowels, she has had urinary urgency and incontinence for some time The following portions of the patient's history were reviewed and updated as appropriate: allergies, current medications, past family history, past medical history, past social history, past surgical history, problem list, and medication reconciliation was completed including current medication and post discharge medication. Review of Systems Constitutional: Negative for activity change, appetite change and fatigue. HENT: Negative. Eyes: Negative. Respiratory: Negative. Cardiovascular: Positive for palpitations. Negative for leg swelling. Gastrointestinal: Negative. Endocrine: Negative. Genitourinary: Negative. Musculoskeletal: Positive for arthralgias, joint swelling and neck stiffness. Neurological: Negative. Hematological: Negative. Psychiatric/Behavioral: Negative. Objective Physical Exam Vitals and nursing note reviewed. Constitutional: Appearance: She is obese. Eyes: Conjunctiva/sclera: Conjunctivae normal. Neck: Vascular: No carotid bruit. Cardiovascular: Rate and Rhythm: Tachycardia present. Rhythm irregular. Heart sounds: Normal heart sounds. No murmur heard. Pulmonary: Effort: Pulmonary effort is normal. Breath sounds: Normal breath sounds. Musculoskeletal: General: Tenderness present. Right hand: Swelling, tenderness and bony tenderness present. Decreased range of motion. Left hand: Swelling, tenderness and bony tenderness present. Decreased range of motion. Cervical back: Neck supple. Right lower leg: No edema. Left lower leg: No edema. Comments: The MCP joints of the thumbs and 2nd and 3rd joints of both hands are swollen, the right more than the left with erythema of the right, some increased warmth of the joints and tenderness of the joints and decreased flexion of the joints In the feet, the toes are only very mildly swollen but the right great toe is swollen and erythematous Lymphadenopathy: Cervical: No cervical adenopathy. Skin: General: Skin is warm and dry. Capillary Refill: Capillary refill takes less than 2 seconds. Neurological: Mental Status: She is alert and oriented to person, place, and time. Gait: Gait normal. Psychiatric: Thought Content: Thought content normal. Judgment: Judgment normal. Assessment/Plan Lisa was seen today for swallen finger ,toes hands thighs . Diagnoses and all orders for this visit: Swelling of multiple joints - Erythrocyte Sedimentation Rate (ESR); Future - Uric acid; Future Stage 3a chronic kidney disease ([facility]-HCC) - Comprehensive metabolic panel; Future - Magnesium; Future - Erythrocyte Sedimentation Rate (ESR); Future - Uric acid; Future - CBC auto differential; Future Palpitations - POCT EKG - Comprehensive metabolic panel; Future - Thyroid profile includes TSH FT4; Future EKG showed only an APC, otherwise a normal rhythm and her rate had recovered below 100 Will recheck her labs to check her kidney status as at times her gfr has been below 60 Also symptoms are suspicious for perhaps a gouty type arthritis Will see what labs show, in meantime, hydrate, decrease salt intake and only very lean sources of protein JOSSELYN Gomez 11/28/23 1217 documented in this encounter [facility] 11-28-2023 Evaluation note Diagnosis Swelling of multiple joints- Primary Stage 3a chronic kidney disease ([facility]-HCC) Palpitations documented in this encounter [facility]01-30-2024 Evaluation note* Encounter Date Diagnosis Assessment Notes Treatment Notes Treatment Clinical Notes Sep, Arthritis of right knee (ICD-10 - M17.11) I have concern for meniscal tear based on the history of this condition and physical exam findings. This condition could require surgical treatment. An MRI will be necessary to plan futher treatment. We performed a marcaine / kenalog cortisone injection into the knee joint under sterile technique. Patient tolerated the injection well without adverse reaction. Sep, Internal derangement of right knee (ICD-10 - M23.91) Sep, Acute pain of right knee (ICD-10 - M25.561) [employer] Other 12-29-2022 Evaluation note* Encounter Date Diagnosis Assessment Notes Treatment Notes Treatment Clinical Notes Aug, Contact with and (suspected) exposure to other viral communicable diseases (ICD-10 - Z20.828) Aug, Bilateral acute otitis media (ICD-10 - H66.93) Ear infections are often a secondary infection caused from an URI, the flu or allergies. Take medication as directed. Complete all doses, even if you feel better. Tylenol or ibuprofen can help with pain. Warm pack to area for comfort helps as well. Follow up with primary care provider if no improvement of symptoms. [employer] Other 01-25-2022 Evaluation note* Encounter Date Diagnosis Assessment Notes Treatment Notes Treatment Clinical Notes Sep, Acute pain of left knee (ICD-10 - M25.562) Sep, Arthritis of left knee (ICD-10 - M17.12) Patient is progressing well at this time. Discussed potential for meniscal tear, but as patient notes improvement at this time, we will hold off on MRI/treatment. Continue gentle motion and strengthening. Call with returns in pain. Sep, Internal derangement of left knee (ICD-10 - M23.92) [employer] Other 12-16-2021 Evaluation note* Encounter Date Diagnosis Assessment Notes Treatment Notes Treatment Clinical Notes Aug, Acute pain of left knee (ICD-10 - M25.562) Aug, Arthritis of left knee (ICD-10 - M17.12) The patient is suffering from degenerative arthritis involving the knee. We discussed the conservative treatment options which can be beneficial in relieving pain, including gentle non-impact motion exercise and non-steroidal anti-inflammatory medication. We discussed the use of occasional cortisone injections that can provide pain relief as well as hyaluronan lubricant injection. We performed a marcaine / kenalog cortisone injection into the knee joint under sterile technique. Patient tolerated the injection well without adverse reaction. If no improvement, may consider MRI to assess for meniscal tear. Aug, Internal derangement of left knee (ICD-10 - M23.92) [employer] Other 04-02-2015 History general Narrative - Reported* Type Description Date Medical History HTN Medical History Hyperlipidemia Medical History Basal Cell carcinoma of scalp Surgical History basal cell carcinoma of scalp ( Dr Llanos) 12/04/14 [employer] Other Evaluation noteNo assessment information available [facility] Work Phone: Evaluation note* Diagnosis Mixed hyperlipidemia [facility] Diagnosis Swelling of multiple joints- Primary [facility] in this [facility]* Diagnosis Erosive (osteo)arthritis- Primary [facility]* Diagnosis Erosive (osteo)arthritis- Primary documented in [facility]* Diagnosis Onset Date Resolution Status Acute medial meniscus tear of right knee acute Arthritis of right knee acut e [facility] Work Phone: InstructionsNot on filedocumented in this encounter [facility] on filedocumented in this encounter [facility] on filedocumented in this encounter [facility]ructionsNot on filedocumented in this encounter [facility] [employer] SystemInstructionsNot on filedocumented in this encounter [facility] SystemReason for referral (narrative)* Consultation (Routine) - Pending Review Specialty Diagnoses / Procedures Referred By Contjaden t Referred To Contact Rheumatology Diagnoses Erosive (osteo)arthritis Kate Thornton, CARLOS ALBERTO-FAUSTINA [address] [place] [address] Dax Coello MD [address] [place] [address] Referral ID Status Reason Start Date Expiration Date Visits Requested Visits Authorized [id number] Pending Review Specialty Services Required 12/07/2023 12/06/2024 1 1 [facility] [employer] [facility] Summary Purpose Family History No Family History Records Found Relationship Condition Age at Onset Recorded Date/T bruce father Hypertension Unknown Heart disease Unknown Unknown Not Specified Unknown Hypertension Unknown natural son Malignant neoplasm Unknown Advance Directives No Advanced Directives Records Found Advance Directive Response Recorded Date/ Time Advance Directives No August 8:21pm Advance Directive Response Recorded Date/ Time Advance Directives No August 9:21pm Chief Complaint and Reason for Visit Chief Complaint Op Lpn Medical Assistant Rt Knee Pain N x M25.561 M17.11 Chief Complaint MRI RESULTS r31.29 Reason for Visit Acute medial meniscu s tear of right knee Arthritis of right knee Additional Source Comments INFORMATION SOURCE (unrecogn ized section and content) DATE CREATED AUTHOR 10/27/2020 [facility] DATE CREATED AUTHOR AUTHOR'S ORGANIZ ATION 12/15/2021 [facility] DATE CREATED AUTHOR AUTHOR'S ORGANIZ ATION 08/08/2023 [facility] EPIC DATE CREATED AUTHOR AUTHOR'S ORGANIZ ATION 12/05/2023 [facility] DATE CREATED AUTHOR AUTHOR'S ORGANIZ ATION 02/02/2024 [facility] DATE CREATED AUTHOR AUTHOR'S ORGANIZ ATION 02/02/2024 [facility] DATE CREATED AUTHOR AUTHOR'S ORGANIZ ATION 02/06/2024 [facility] REASON FOR VISIT (unrecogniz ed section and content) Reason Comments Med Refill Reason Comments swallen finger ,toes hands thighs Care Teams (unrecognized sec tion and content) Team Status: Active Member Role Status Dates NON STAFF Primary Care Provider Active Team Status: Inactive Member Role Status Dates NON STAFF Primary Care Provider Active Start: October 03, 2023 End: October 03, 2023 Aldo Wynn MD Attending Provider Active Star t: October 03, 2023 End: October 03, 2023 Team Status: Inactive Member Role Status Dates Aldo Wynn MD Attending Provider Active Star t: October 03, 2023 End: October 03, 2023 Team Status: Inactive Member Role Status Dates Aldo Wynn MD Attending Provider Active Star t: October 24, 2023 End: October 24, 2023 NON STAFF Primary Care Provider Active Start: October 24, 2023 End: October 24, 2023 Stable Helper Relationship Specialty Start Date End Date Kate Thornton [employer]ER [address] [place] [place] [address] PCP - General Family Medicine 08/01/18 Stable Helper Relationship Specialty Start Date End Date Kate Thornton [employer]ER [address] [place] [address] PCP - General Family Medicine 08/01/18 Stable Helper Relationship Specialty Start Date End Date Kate hTornton [employer]ADER [address] [place] [address] PCP - General Family Medicine 08/01/18 Team Status: Inactive Member Role Status Dates NON STAFF Primary Care Provider Active Start: November 07, 2023 End: November 07, 2023 Aldo Wynn MD Attending Provider Active Star t: November 07, 2023 End: November 07, 2023 Team Status: Inactive Member Role Status Dates NON STAFF Primary Care Provider Active Start: January 23, 2024 End: January 23, 2024 Dax Coello MD Attending Provider Active St art: January 23, 2024 End: January 23, 2024 Goals (unrecognized section and content) Goals may be documented in a n alternate section FOR RECORDS PERTAINING TO PATIENTS WHO ARE OR HAVE BEEN ENROLLED IN A CHEMICAL DEPENDENCY/SUBSTANCEABUSE PROGRAM, SOME INFORMATION MAY BE OMITTED. This clinical summary was aggregated from multiple sources. Caution should be exercised in using it in the provision of clinical care. This summary normalizes information from multiple sources, and as a consequence, information in this document may materially change the coding, format and clinical context of patient data. In addition, data may be omitted in some cases. CLINICAL DECISIONS SHOULD BE BASED ON THE PRIMARY CLINICAL RECORDS. [facility] provides no warranty or guarantee of the accuracy or completeness of information in this document.
[2024-04-22 08:49] LABS: Basophils Absolute Auto 0.1 10^3/uL (0.0-0.1); Basophils Percent Auto 0.7 % (0.2-2.0); Eosinophils Absolute Auto 0.1 10^3/uL (0.0-0.7); Eosinophils Percent Auto 0.8 % (0.9-7.0); Hematocrit 42.5 % (36.0-48.0); Hemoglobin 13.7 g/dL (12.0-16.0); Immature Granulocytes Abs Auto 0.02 10^3/uL (0.00-0.03); Immature Granulocytes Pct Auto 0.2 % (0.0-0.5); Lymphocytes Absolute Auto 0.9 10^3/uL (1.2-3.8); Lymphocytes Percent Auto 10.7 % (20.5-60.0); Mean Corpuscular HGB Conc 32.2 g/dL (29.9-35.2); Mean Corpuscular Hemoglobin 28.7 pg (26.7-34.0); Mean Corpuscular Volume 88.9 fL (81.0-99.0); Mean Platelet Volume 10.2 fL (9.5-13.5); Monocytes Absolute Auto 0.6 10^3/uL (0.3-0.8); Monocytes Percent Auto 6.6 % (1.7-12.0); Neutrophils Absolute Auto 6.9 10^3/uL (1.4-6.5); Platelet Count 307 10^3/uL (150-450); Red Blood Count 4.78 10^6/uL (4.20-5.40); Red Cell Distribution Width 13.4 % (11.0-15.0); White Blood Count 8.5 10^3/uL (4.0-11.0)
[2024-04-22 09:01] LABS: Erythrocyte Sedimentation Rate 92 mm/hr (<=30)
[2024-04-22 10:36] LABS: Alanine Aminotransferase 19 U/L (14-59); Albumin Globulin Ratio 0.7; Alkaline Phosphatase 111 U/L (46-116); Anion Gap 10.7; Aspartate Amino Transferase 9 U/L (15-37); Bilirubin Total 0.5 mg/dL (0.2-1.0); Calcium 8.7 mg/dL (8.5-10.1); Carbon Dioxide 28.3 mmol/L (21.0-32.0); Chloride 102 mmol/L (98-107); Estimated GFR (African America 59 (>=60); Estimated GFR (Non-African Ame 49 (>=60); Globulin 4.2 g/dL; Glucose 103 mg/dL (74-106); Sodium 137 mmol/L (136-145); Total Protein 7.2 g/dL (6.4-8.2)
== END 2024-04-22 08:24 | disposition home or self-care (01) ==
LOC: LAB 08:25
PROVIDERS: PCP Family Medicine; Visit Provider Internal Medicine Rheumatology
DX: M06.9 Rheumatoid arthritis, unspecified (principal); M19.90 Unspecified osteoarthritis, unspecified site; Z51.81 Encounter for therapeutic drug level monitoring
CPT/HCPCS: 36415; 80053; 85025; 85652

== ENCOUNTER 2024-05-20 13:25 | Outpatient (OUT) | payer MEDICARE, SELFPAY ==
--- OUTSIDE RECORDS SUMMARY | 2024-05-20 13:42 | XMS_ITS | CCD ---
Author Organization [facility] Care Team Providers Care Rod Cup Filler Name Role Phone REQUEST, NONE LISTED Attending Unavailable REQUEST, NONE LISTED Consulting Unavailable REQUEST, NONE LISTED Admitting Unavailable KUNS, KATE R Primary Care Unavailable Aldo Wynn Unavailable Tanna Paige Unavailable JOSEFINA MELISSA Attending Unavailable NON STAFF Primary Care Provider UnavailMD Aldo Diop Attending Provider Jenna SINTERING PLANT SUPERVISOR-LEAD NITRATE PROCESSORKate Primary Care Provider KATE THORNTON Referring Unavailable SHANS, ZAYRA Primary Care Unavailable NON STAFF Primary Care Provider UnavailMD Dax Elizabeth Attending Provider [phone] KATE THORNTON Attending Unavailable JENNA, KATE SKINNER Referring Unavailable KUNS, ZAYRA Primary Care Unavailable KATE THORNTON Attending Unavailable KATE THORNTON Referring Unavailable KUNS, ZAYRA Primary Care Unavailable KUNS, KATE R Referring Unavailable KUNS, KATE R Primary Care Unavailable KUNS, KATE R Referring Unavailable KUNS, KATE R Primary Care Unavailable Aldo Wynn Attending Unavailable Adlo Wynn Admitting Unavailable NON STAFF Primary Care Unavailable Aldo Wynn Admitting Unavailable NON STAFF Primary Care Unavailable Aldo Wynn Attending Unavailable Dax Coello Attending Unavailable Dax Coello Admitting Unavailable NON STAFF Primary Care Unavailable Allergies Allergy Classification Reported Allergen(s) Allergy Type Date of Onset Reaction(s) Facility (4 sources) Amino Acids; Translations: [LISINOPRIL] Drug Allergy 09-20-2019 [facility] Repository (9 sources) Lisinopril Drug Allergy 09-20-2019 [facility] Work Phone: (1 source) Lisinopril Drug Allergy 11-07-2023 [facility] Repository Medications Current Medications Medication Drug [...] 0 11/21/2023 Active take 1 capsule by [facility] every twenty-four hours FLUoxetine HCl 10 MG 1 capsule in the morning Orally Once a day Active take 1 capsule by [facility] once daily in the morning FLUoxetine HCl 10 MG 1 capsule in the morning Orally Once a day Active oytaxbfspeji-uwis-cvvje acid (CENTRUM) 18-400 mg-mcg tablet (4 sources) take 1 tablet by mouth in the morning klcapyfbnxcy-rmno-lprzf acid (CENTRUM) 18-400 mg-mcg tablet Take 1 [...] 02-01-2024 Albumin [Mass/Vol] 4.0 g/dL Normal 3.2-5.3 [facility] Comment on above: Performed By: #### C , 39494-5 #### [facility] ([id number]) [address] [place] [address] ALP [Catalytic activity/Vol] 103 U/L Normal 39-130 [facility] Comment on above: Performed By: #### Pete VINES, 92730-5 #### [facility] ([id number]) [address], [address] [place] [address] ALT [Catalytic activity/Vol] 15 U/L Normal 0-31 [facility] Comment on above: Performed By: #### Pete VINES, 69105-4 #### [facility] ([id number]) [address], [address] [place] [address] Anion gap [Moles/Vol] 10 mmol/L Normal 5-15 [facility] Comment on above: Performed By: #### Pete VINES, 58595-5 #### [facility] ([id number]) [address], [address] [place] [address] AST [Catalytic activity/Vol] 15 U/L Normal 0-41 [facility] Comment on above: Performed By: #### Pete VINES, 83900-5 #### [facility] ([id number]) [address], [address] [place] [address] Bilirubin [Mass/Vol] 0.4 mg/dL Normal 0.3-1.2 [facility] Comment on above: Performed By: #### Pete VINES, 82884-3 #### [facility] ([id number]) [address], [address] [place] [address] Calcium [Mass/Vol] 8.9 mg/dL Normal 8.5-10.5 [facility] Comment on above: Performed By: #### Pete VINES, 13569-9 #### [facility] ([id number]) [address], [address] [place] [address] Chloride [Moles/Vol] 105 mmol/L Normal 98-109 [facility] Comment on above: Performed By: #### C JASMYN, 00281-0 #### [facility] ([id number]) [address], [address] [place] [address] CO2 [Moles/Vol] 24 mmol/L Normal 22-32 [facility] Comment on above: Performed By: #### Pete VINES, 64177-1 #### [facility] ([id number]) [address], [address] [place] [address] Creatinine [Mass/Vol] 1.00 mg/dL Normal 0.40-1.00 [facility] Comment on above: Result Comment: METH OD TRACEABLE TO IDMS STANDARD Performed By: #### Pete VINES, 70440-9 #### [facility] ([id number]) [address], [address] [place] [address] GFR/1.73 sq M.predicted among non-blacks MDRD (S/P/Bld) [Vol rate/Area] 60 mL/min/{1.73_m2} Normal >59 [facility] Comment on above: Result Comment: Reported eGFR is based on the CKD-EPI 2020 equation that does not use a race coefficient. Performed By: #### Pete VINES, 11616-5 #### [facility] ([id number]) [address], [address] [place] [address] Glucose [Mass/Vol] 100 mg/dL High 65-99 [facility] Comment on above: Performed By: #### Pete VINES, 41853-6 #### [facility] ([id number]) [address], [address] [place] [address] Potassium [Moles/Vol] 4.3 mmol/L Normal 3.5-5.0 [facility] Comment on above: Performed By: #### Pete VINES, 32346-6 #### [facility] ([id number]) [address], [address] [place] [address] Protein [Mass/Vol] 7.6 g/dL Normal 6.0-8.0 [facility] Comment on above: Performed By: #### Pete VINES, 46483-8 #### [facility] ([id number]) [address], [address] [place] [address] Sodium [Moles/Vol] 139 mmol/L Normal 134-146 [facility] Comment on above: Performed By: #### Pete VINES, 37639-4 #### [facility] ([id number]) [address], [address] [place] [address] Urea nitrogen [Mass/Vol] 21 mg/dL Normal 5-27 [facility] Comment on above: Performed By: #### Pete VINES, 03468-6 #### [facility] ([id number]) [address], [address] [place] [address] Lipid 1996 panelon 4 Cholesterol [Mass/Vol] 189 mg/dL Normal 150-[address] [facility] Comment on above: Performed By: #### Pete VINES, 78375-2 #### [facility] ([id number]) [address], [address] [place] [address] Cholesterol in HDL [Mass/Vol] 65 mg/dL Normal >39 [facility] Comment on above: Result Comment: HDL <40 mg/dL - High Risk HDL > or = 40mg/dL- Desirable HDL >60 mg/dL - Negative Risk Performed By: #### Pete VINES, 67653-3 #### [facility] ([id number]) [address], [address] [place] [address] Cholesterol in LDL [Mass/Vol] 106 mg/dL Normal <130 [facility] Comment on above: Result Comment: LDL <100 mg/dL - Desirable LDL >160 mg/dL - High Risk Performed By: #### C JASMYN, 81833-1 #### [facility] ([id number]) [address], [address] [place] [address] Cholesterol in VLDL [Mass/Vol] 18 mg/dL Normal 0-30 [facility] Comment on above: Performed By: #### C JASMYN, 31367-1 #### [facility] ([id number]) [address], [address] [place] [address] CHOLESTEROL:HDL 2.9 Normal 1.0-5.0 [facility] Comment on above: Performed By: #### C JASMYN, 25105-3 #### [facility] ([id number]) [address], [address] [place] [address] Triglyceride [Mass/Vol] 91 mg/dL Normal 27-150 P [facility] Comment on above: Performed By: #### C JASMYN, 74730-0 #### [facility] ([id number]) [address], [address] [place] [address] MANUEL Antinuclear Antibodieson 01-23-2024 Antinuclear Abs, IFA Negative Normal . [facility] Comment on above: Result Comment: Nega tive <1:80 Borderline 1:80 Positive >1:80 ICAP nomenclature: AC-0 For more information about Hep-2 cell patterns use ANApatterns.org, the official website for the International Consensus on Antinuclear Antibody (MANUEL) Patterns (ICAP). Performed at: - [facility] [id number] Printing Machine Mechanic: Sly Mack PhD, Phone: [phone] PERFORMED BY: [facility] [place] [address] PATHOLOGIST LEAD LAYING AND GLUING MACHINE OPERATOR AYO CRUZ M.D. Performed By: #### A LDOLASE, MANUEL #### [facility] , #### CK, CMP, CRP, T4F, TSH3, CBC, ESR #### [facility] [address] [place] [address] [place] Alanine aminotransferase [En zymatic activity/volume] in Serum or PlasmaOrdered By: Dax Coello on 01-23-2024 ALT [Catalytic activity/Vol] 24 U/L Normal 7-52 [facility] Comment on above: Performed By: #### A LDOLASE, MANUEL #### [facility] , #### CK, CMP, CRP, T4F, TSH3, CBC, ESR #### [facility] [address] [place] [address] [place] Albumin [Mass/volume] in Ser um or Plasma by Bromocresol green (BCG) dye binding methoOrdered By: Dax Coello on 01-23-2024 Albumin BCG dye [Mass/Vol] 4.3 g/dL 3.5-5.7 [facility] Aldolaseon 01-23-2024 Aldolase 3.3 U/L Normal 3.3-10.3 [facility] Comment on above: Result Comment: Perf ormed at: - [facility] [address] [id number] Printing Machine Mechanic: Sly Mack PhD, Phone: [phone] PERFORMED BY: [place] [address] PATHOLOGIST LEAD LAYING AND GLUING MACHINE OPERATOR AYO CRUZ M.D. Performed By: #### A LDOLASE, MANUEL #### [facility] , #### CK, CMP, CRP, T4F, TSH3, CBC, ESR #### [facility] [address] [place] [address] [place] Alkaline phosphatase [Enzyma tic activity/volume] in Serum or PlasmaOrdered By: Dax Coello on 01-23-2024 ALP [Catalytic activity/Vol] 119 U/L High 34-104 [facility] Comment on above: Performed By: #### A LDOLASE, MANUEL #### [facility] , #### CK, CMP, CRP, T4F, TSH3, CBC, ESR #### [address] Aspartate aminotransferase [ Enzymatic activity/volume] in Serum or PlasmaOrdered By: Dax Coello on 01-23-2024 AST [Catalytic activity/Vol] 30 U/L Normal 13-39 [facility] Comment on above: Performed By: #### A LDOLASE, MANUEL #### [facility] , #### CK, CMP, CRP, T4F, TSH3, CBC, ESR #### [address] Automated basophil %Ordered By: Dax Coello on 01-23-2024 Basophils/100 WBC (Bld) 0.9 % Normal . [facility] Comment on above: Performed By: #### A LDOLASE, MANUEL #### [facility] , #### CK, CMP, CRP, T4F, TSH3, CBC, ESR #### [address] Automated basophil countOrde red By: Dax oCello on 01-23-2024 Basophils (Bld) [#/Vol] 0.1 10*3/uL Normal 0.0-0.2 [facility] Comment on above: Performed By: #### A LDOLASE, MANUEL #### [facility] , #### CK, CMP, CRP, T4F, TSH3, CBC, ESR #### [address] Automated blood monocyte cou ntOrdered By: Dax Coello on 01-23-2024 Monocytes (Bld) [#/Vol] 0.5 10*3/uL Normal 0.0-0.8 [facility] Comment on above: Performed By: #### A LDOLASE, MANUEL #### [facility] , #### CK, CMP, CRP, T4F, TSH3, CBC, ESR #### [address] Automated eosinophil %Ordere d By: Dax Vergararow on 01-23-2024 Eosinophils/100 WBC (Bld) 2.4 % Normal . [facility] Comment on above: Performed By: #### A LDOLASE, MANUEL #### [facility] , #### CK, CMP, CRP, T4F, TSH3, CBC, ESR #### [facility] [address] Automated eosinophil countOr dered By: Dax Coello on 01-23-2024 Eosinophils (Bld) [#/Vol] 0.2 10*3/uL Normal 0.0-0.45 [facility] Comment on above: Performed By: #### A LDOLASE, MANUEL #### [facility] , #### CK, CMP, CRP, T4F, TSH3, CBC, ESR #### [facility] [address] [place] [address] Automated monocyte %Ordered By: Dax Vergararow on 01-23-2024 Monocytes/100 WBC (Bld) 6.8 % Normal . [facility] Comment on above: Performed By: #### A LDOLASE, MANUEL #### [facility] , #### CK, CMP, CRP, T4F, TSH3, CBC, ESR #### [address] Automated neutrophil %Ordere d By: Dax Vergararow on 01-23-2024 Neutrophils/100 WBC (Bld) 61.7 % Normal . [facility] Comment on above: Performed By: #### A LDOLASE, MANUEL #### [facility] , #### CK, CMP, CRP, T4F, TSH3, CBC, ESR #### [facility] [address] [place] [address] Bilirubin.total [Mass/volume ] in Serum or PlasmaOrdered By: Dax Vergararow on 01-23-2024 Bilirubin [Mass/Vol] 0.5 mg/dL Normal 0.3-1.0 [facility] Comment on above: Performed By: #### A LDOLASE, MANUEL #### [facility] , #### CK, CMP, CRP, T4F, TSH3, CBC, ESR #### [facility] [address] [place] [address] [place] C reactive protein [Mass/vol ume] in Serum or PlasmaOrdered By: Dax Coello on 01-23-2024 CRP [Mass/Vol] 1.0 mg/dL 0.0-0.5 [facility] C-Reactive Proteinon 024 C-Reactive Protein 1.0 mg/dL High 0.0-0.5 [facility] Comment on above: Performed By: #### A LDOLASE, MANUEL #### [facility] , #### CK, CMP, CRP, T4F, TSH3, CBC, ESR #### [place] [address] [place] Calcium [Mass/volume] in Ser um or PlasmaOrdered By: Dax Coello on 01-23-2024 Calcium [Mass/Vol] 9.6 mg/dL Normal 8.6-10.3 [facility] Comment on above: Performed By: #### A LDOLASE, MANUEL #### [facility] , #### CK, CMP, CRP, T4F, TSH3, CBC, ESR #### [facility] [address] [place] [address] [place] Carbon dioxide, total [Moles /volume] in Serum or PlasmaOrdered By: Dax Coello on 01-23-2024 CO2 [Moles/Vol] 25.5 mmol/L Normal 21.0-31.0 [facility] Comment on above: Performed By: #### A LDOLASE, MANUEL #### [facility] , #### CK, CMP, CRP, T4F, TSH3, CBC, ESR #### [place] [address] [place] Chloride [Moles/volume] in S beatris or PlasmaOrdered By: Dax Coello on 01-23-2024 Chloride [Moles/Vol] 107 mmol/L Normal 98-107 [facility] Comment on above: Performed By: #### A LDOLASE, MANUEL #### [facility] , #### CK, CMP, CRP, T4F, TSH3, CBC, ESR #### [facility] [address] Complete Blood Count Auto Di ffon 01-23-2024 Mean Corpuscular HGB Conc 33.2 g/dL Normal 32.0-35.0 [facility] Comment on above: Performed By: #### A LDOLASE, MANUEL #### [facility] , #### CK, CMP, CRP, T4F, TSH3, CBC, ESR #### [address] NRBC% 0.2 /100{WBC} Normal 0-0.5 [facility] Comment on above: Performed By: #### A LDOLASE, MANUEL #### [facility] , #### CK, CMP, CRP, T4F, TSH3, CBC, ESR #### [address] Comprehensive Metabolic Pane bijan 01-23-2024 Albumin [Mass/Vol] 4.3 g/dL Normal 3.5-5.7 [facility] Comment on above: Performed By: #### A LDOLASE, MANUEL #### [facility] , #### CK, CMP, CRP, T4F, TSH3, CBC, ESR #### [place] [address] [place] GFR/1.73 sq M.predicted MDRD (S/P/Bld) [Vol rate/Area] 47.618 mL/min/{1.73_m2} Normal [facility] Comment on above: Performed By: #### A LDOLASE, MANUEL #### [facility] , #### CK, CMP, CRP, T4F, TSH3, CBC, ESR #### [facility] [address] [place] [address] Creatine kinase [Enzymatic a ctivity/volume] in Serum or PlasmaOrdered By: Dax Mode on 01-23-2024 CK [Catalytic activity/Vol] 69 U/L Normal 30-223 [facility] Comment on above: Result Comment: PERF ORMED BY: [place] [address] PATHOLOGIST LEAD LAYING AND GLUING MACHINE OPERATOR AYO CRUZ M.D. Performed By: #### A LDOLASE, MANUEL #### [facility] , #### CK, CMP, CRP, T4F, TSH3, CBC, ESR #### [address] Creatinine [Mass/volume] in Serum or PlasmaOrdered By: Dax Coello on 01-23-2024 Creatinine [Mass/Vol] 1.21 mg/dL High 0.60-1.20 [facility] Comment on above: Performed By: #### A LDOLASE, MANUEL #### [facility] , #### CK, CMP, CRP, T4F, TSH3, CBC, ESR #### [facility] [address] [place] [address] Erythrocyte Sedimentation Ra solo 01-23-2024 ESR (Bld) [Velocity] 58 mm/h High 0-29 [facility] Comment on above: Result Comment: PERF ORMED BY: [place] [address] PATHOLOGIST LEAD LAYING AND GLUING MACHINE OPERATOR AYO CRUZ M.D. Performed By: #### A LDOLASE, MANUEL #### [facility] , #### CK, CMP, CRP, T4F, TSH3, CBC, ESR #### [facility] [address] [place] [address] Erythrocyte distribution wid th [Ratio] by Automated countOrdered By: Dax Mode on 01-23-2024 Erythrocyte distribution width (RBC) [Ratio] 15.3 % Normal 11.9-15.3 [facility] Comment on above: Performed By: #### A LDOLASE, MANUEL #### [facility] , #### CK, CMP, CRP, T4F, TSH3, CBC, ESR #### [facility] [address] Erythrocyte sedimentation ra te by Photometric methodOrdered By: Daxsilvia Coello on 01-23-2024 ESR Photometric method (Bld) [Velocity] 58 mm/hr 0-29 [facility] Erythrocytes [#/volume] in B lood by Automated countOrdered By: Dax Mode on 01-23-2024 RBC (Bld) [#/Vol] 5.04 10*6/uL High 3.60-5.00 [facility] Comment on above: Performed By: #### A LDOLASE, MANUEL #### [facility] , #### CK, CMP, CRP, T4F, TSH3, CBC, ESR #### [facility] [address] Glucose [Mass/volume] in Ser um or PlasmaOrdered By: Dax Coello on 01-23-2024 Glucose [Mass/Vol] 110 mg/dL High 70-100 [facility] Comment on above: ADA recommended refe rence rangeRandom Glucose Reference Range is dependent on time and content of last meal. Glucose of more than 200 mg/dL in a nonstressed, ambulatory subject supports the diagnosis of Diabetes Mellitus. Result Comment: [place] Glucose Reference Range is dependent on time and content of last meal. Glucose of more than 200 mg/dL in a nonstressed, ambulatory subject supports the diagnosis of Diabetes Mellitus. ADA recommended reference range Performed By: #### A LDOLASE, MANUEL #### [facility] , #### CK, CMP, CRP, T4F, TSH3, CBC, ESR #### [facility] [address] [place] [address] [place] Hematocrit [Volume Fraction] of Blood by Automated countOrdered By: Daxsilvia Coello on 01-23-2024 Hematocrit (Bld) [Volume fraction] 43.1 % Normal 34.0-46.4 [facility] Comment on above: Performed By: #### A LDOLASE, MANUEL #### [facility] , #### CK, CMP, CRP, T4F, TSH3, CBC, ESR #### [facility] [address] [place] [address] [place] Hemoglobin [Mass/volume] in BloodOrdered By: Dax Coello on 01-23-2024 Hemoglobin (Bld) [Mass/Vol] 14.3 g/dL Normal 11.8-15.4 [facility] Comment on above: Performed By: #### A LDOLASE, MANUEL #### [facility] , #### CK, CMP, CRP, T4F, TSH3, CBC, ESR #### [facility] [address] [place] [address] Leukocytes [#/volume] correc luis alfredo for nucleated erythrocytes in Blood by Automated counOrdered By: Dax Coello on 01-23-2024 WBC corrected for nucl RBC Auto (Bld) [#/Vol] 7.1 10*3/uL 3.8-11.6 [facility] Leukocytes [#/volume] in Blo od by Automated countOrdered By: Dax Coello on 01-23-2024 WBC (Bld) [#/Vol] 7.1 10*3/uL Normal 3.8-11.6 [facility] Comment on above: Performed By: #### A LDOLASE, MANUEL #### [facility] , #### CK, CMP, CRP, T4F, TSH3, CBC, ESR #### [facility] [address] [place] [address] [place] Lymphocytes [#/volume] in Bl ood by Automated countOrdered By: Dax Vergararow on 01-23-2024 Lymphocytes (Bld) [#/Vol] 2.0 10*3/uL Normal 1.00-4.8 [facility] Comment on above: Performed By: #### A LDOLASE, MANUEL #### [facility] , #### CK, CMP, CRP, T4F, TSH3, CBC, ESR #### [facility] [address] [place] [address] Lymphocytes/100 leukocytes i n Blood by Automated countOrdered By: Dax Vergararow on 01-23-2024 Lymphocytes/100 WBC (Bld) 28.2 % Normal . [facility] Comment on above: Performed By: #### A LDOLASE, MANUEL #### [facility] , #### CK, CMP, CRP, T4F, TSH3, CBC, ESR #### [address] MCH [Entitic mass] by Automa luis alfredo countOrdered By: Dax Vergararow on 01-23-2024 MCH (RBC) [Entitic mass] 28.4 pg Normal 24.7-34.3 [facility] Comment on above: Performed By: #### A LDOLASE, MANUEL #### [facility] , #### CK, CMP, CRP, T4F, TSH3, CBC, ESR #### [address] MCHC Auto (RBC) [Mass/Vol]Or dered By: Dax Coello on 01-23-2024 MCHC (RBC) [Mass/Vol] 33.2 g/dL 32.0-35.0 [facility] MCV [Entitic volume] by Auto mated countOrdered By: Dax Coello on 01-23-2024 MCV (RBC) [Entitic vol] 85.5 fL Normal 80-100 [facility] Comment on above: Performed By: #### A LDOLASE, MANUEL #### [facility] , #### CK, CMP, CRP, T4F, TSH3, CBC, ESR #### [address] Neutrophils [#/volume] in Bl ood by Automated countOrdered By: Dax Coello on 01-23-2024 Neutrophils (Bld) [#/Vol] 4.4 10*3/uL Normal 1.8-7.7 [facility] Comment on above: Performed By: #### A LDOLASE, MANUEL #### [facility] , #### CK, CMP, CRP, T4F, TSH3, CBC, ESR #### [facility] [address] [place] [address] No Panel InformationOrdered By: Dax Coello on 01-23-2024 Estimated GFR (CKD-EPI) 47.618 mL/Min [facility] Creatinine Clearance (Chem N/A [facility] Nucleated erythrocytes [Pres ence] in Blood by Automated countOrdered By: Dax Vergararow on 01-23-2024 Nucleated RBC Auto Ql (Bld) 0.2 /100{WBC} 0-0.5 [facility] Platelet mean volume [Entiti c volume] in Blood by Automated countOrdered By: Dax Vergararow on 01-23-2024 Platelet mean volume (Bld) [Entitic vol] 8.6 fL Normal 6.3-10.7 [facility] Comment on above: Performed By: #### A LDOLASE, MANUEL #### [facility] , #### CK, CMP, CRP, T4F, TSH3, CBC, ESR #### [facility] [address] [place] [address] Platelets [#/volume] in Bloo d by Automated countOrdered By: Dax Vergararow on 01-23-2024 Platelets (Bld) [#/Vol] 380 10*3/uL Normal 150-450 [facility] Comment on above: Performed By: #### A LDOLASE, MANUEL #### [facility] , #### CK, CMP, CRP, T4F, TSH3, CBC, ESR #### [facility] [address] [place] [address] Potassium [Moles/volume] in Serum or PlasmaOrdered By: Dax Vergararow on 01-23-2024 Potassium [Moles/Vol] 4.5 mmol/L Normal 3.5-5.1 [facility] Comment on above: Performed By: #### A LDOLASE, MANUEL #### [facility] , #### CK, CMP, CRP, T4F, TSH3, CBC, ESR #### [facility] [address] Protein [Mass/volume] in Ser um or PlasmaOrdered By: Dax Coello on 01-23-2024 Protein [Mass/Vol] 7.5 g/dL Normal 6.4-8.9 [facility] Comment on above: Performed By: #### A LDOLASE, MANUEL #### [facility] , #### CK, CMP, CRP, T4F, TSH3, CBC, ESR #### [facility] [address] Serum globulin measurement b y calculation (mass/volume)Ordered By: Dax Coello on 01-23-2024 Globulin (S) [Mass/Vol] 3.2 g/dL Normal [facility] Comment on above: Performed By: #### A LDOLASE, MANUEL #### [facility] , #### CK, CMP, CRP, T4F, TSH3, CBC, ESR #### [facility] [address] Serum or plasma albumin/glob ulin mass ratioOrdered By: Dax Coello on 01-23-2024 Albumin/Globulin [Mass ratio] 1.3 {ratio} Normal [facility] Comment on above: Performed By: #### A LDOLASE, MANUEL #### [facility] , #### CK, CMP, CRP, T4F, TSH3, CBC, ESR #### [facility] [address] Serum or plasma anion gap de terminationOrdered By: Dax Coello on 01-23-2024 Anion gap [Moles/Vol] 12.0 mmol/L Normal 6.0-15.0 [facility] Comment on above: Performed By: #### A LDOLASE, MANUEL #### [facility] , #### CK, CMP, CRP, T4F, TSH3, CBC, ESR #### [facility] [address] [place] [address] Sodium [Moles/volume] in Ser um or PlasmaOrdered By: Dax Coello on 01-23-2024 Sodium [Moles/Vol] 140 mmol/L Normal 136-145 [facility] Comment on above: Performed By: #### A LDOLASE, MANUEL #### [facility] , #### CK, CMP, CRP, T4F, TSH3, CBC, ESR #### [facility] [address] [place] [address] Thyrotropin [Units/volume] i n Serum or PlasmaOrdered By: Dax Coello on 01-23-2024 TSH Qn 1.66 m[IU]/L Normal 0.45-5.33 [facility] Comment on above: Result Comment: PERF ORMED BY: [place] [address] PATHOLOGIST LEAD LAYING AND GLUING MACHINE OPERATOR AYO CRUZ M.D. Performed By: #### A LDOLASE, MANUEL #### [facility] , #### CK, CMP, CRP, T4F, TSH3, CBC, ESR #### [facility] [address] [place] [address] Thyroxine (T4) free [Mass/vo lume] in Serum or PlasmaOrdered By: Dax Coello on 01-23-2024 Free T4 [Mass/Vol] 0.93 ng/dL Normal 0.61-1.12 [facility] Comment on above: Performed By: #### A LDOLASE, MANUEL #### [facility] , #### CK, CMP, CRP, T4F, TSH3, CBC, ESR #### [facility] [address] [place] [address] [place] Urea nitrogen [Mass/volume] in Serum or PlasmaOrdered By: Dax Coello on 01-23-2024 Urea nitrogen [Mass/Vol] 14 mg/dL Normal 7-25 [facility] Comment on above: Performed By: #### A LDOLASE, MANUEL #### [facility] , #### CK, CMP, CRP, T4F, TSH3, CBC, ESR #### [facility] [address] CBC AND AUTO DIFFon 11-28-19 24 ABSOLUTE BASOPHIL 0.1 X10E9/L Normal 0.0-0.2 [facility] Comment on above: Performed By: #### C BCA, CMP, 04627-8, 3083-, THYR, 50620-1 #### [facility] ([id number]) [address], [address] [place] [address] ABSOLUTE NEUTROPHIL 4.6 X10E9/L Normal 1.5-6.6 [facility] Comment on above: Performed By: #### C BCA, CMP, 49691-0, 3083-, THYR, 16623-7 #### [facility] ([id number]) [address], [address] [place] [address] Basophils/100 WBC (Bld) 0.9 % Normal [facility] Comment on above: Performed By: #### C BCA, CMP, 39486-6, 3083-, THYR, 55321-9 #### [facility] ([id number]) [address], [address] [place] [address] Eosinophils (Bld) [#/Vol] 0.3 10*3/uL Normal 0.0-0.4 [facility] Comment on above: Performed By: #### C BCA, CMP, 91762-0, 3083-, THYR, 56730-8 #### [facility] ([id number]) [address], [address] [place] [address] Eosinophils/100 WBC (Bld) 4.6 % Normal [facility] Comment on above: Performed By: #### C BCA, CMP, 75700-9, 3083-, THYR, 35797-1 #### [facility] ([id number]) [address], [address] [place] [address] Erythrocyte distribution width (RBC) [Ratio] 14.1 % Normal 11.5-15.0 [facility] Comment on above: Performed By: #### C BCA, CMP, 69405-7, 4-1, THYR, 31322-9 #### [facility] ([id number]) [address], [address] [place] [address] Hematocrit (Bld) [Volume fraction] 39.1 % Normal 35-47 [facility] Comment on above: Performed By: #### C BCA, CMP, 49214-9, 3083-, THYR, 75625-0 #### [facility] ([id number]) [address], [address] [place] [address] Hemoglobin (Bld) [Mass/Vol] 13.2 g/dL Normal 11.7-15.5 [facility] Comment on above: Performed By: #### C BCA, CMP, 18732-0, 3083-, THYR, 48418-0 #### [facility] ([id number]) [address] [address] [place] [address] Lymphocytes (Bld) [#/Vol] 1.7 10*3/uL Normal 1.0-3.5 [facility] Comment on above: Performed By: #### C BCA, CMP, 65318-5, 3083-, THYR, 68699-8 #### [facility] ([id number]) [address] [address] [place] [address] Lymphocytes/100 WBC (Bld) 23.3 % Normal [facility] Comment on above: Performed By: #### C BCA, CMP, 03635-1, 4-, THYR, 55828-7 #### [facility] ([id number]) [address], [address] [place] [address] MCH (RBC) [Entitic mass] 28.6 pg Normal 27-34 [facility] Comment on above: Performed By: #### C BCA, CMP, 82836-4, 3083-, THYR, 32115-8 #### [facility] ([id number]) [address], [address] [place] [address] MCHC (RBC) [Mass/Vol] 33.8 g/dL Normal 32-36 [facility] Comment on above: Performed By: #### C BCA, CMP, , 3083-09, THYR, 84317-3 #### [facility] ([id number]) [address], [address] [place] [address] MCV (RBC) [Entitic vol] 85 fL Normal 80-100 P [facility] Comment on above: Performed By: #### C BCA, CMP, , 3083-09, THYR, 49871-3 #### [facility] ([id number]) [address], [address] [place] [address] Monocytes (Bld) [#/Vol] 0.6 10*3/uL Normal 0-0.9 [facility] Comment on above: Performed By: #### C BCA, CMP, , 3083-09, THYR, 18167-5 #### [facility] ([id number]) [address], [address] [place] [address] Monocytes/100 WBC (Bld) 7.7 % Normal P [facility] Comment on above: Performed By: #### C BCA, CMP, , 3083-09, THYR, 84374-9 #### [facility] ([id number]) [address], [address] [place] [address] Neutrophils/100 WBC (Bld) 63.5 % Normal [facility] Comment on above: Performed By: #### C BCA, CMP, 85700-4, 4-1, THYR, 02970-6 #### [facility] ([id number]) [address] [address] [place] [address] Platelet mean volume (Bld) [Entitic vol] 8.7 fL Normal 7-12 [facility] Comment on above: Performed By: #### C BCA, CMP, 02463-7, 4-1, THYR, 21276-3 #### [facility] ([id number]) [address] [address] Platelets (Bld) [#/Vol] 366 10*3/uL Normal 150-450 [facility] Comment on above: Performed By: #### C BCA, CMP, 64934-1, 4-1, THYR, 85404-1 #### [facility] ([id number]) [address] [address] RBC COUNT 4.63 X10E12/L Normal 3.80-5.20 [facility] Comment on above: Performed By: #### C BCA, CMP, 55889-9, 4-1, THYR, 00088-3 #### [facility] ([id number]) [address] [address] WBC (Bld) [#/Vol] 7.2 10*3/uL Normal 4.0-11.0 [facility] Comment on above: Performed By: #### C BCA, CMP, 04343-8, 3084-1, THYR, 88427-9 #### [facility] ([id number]) [address] [address] [place] [address] CBC auto differentialon 11-03 Basophils (Bld) [#/Vol] 0.1 10*3/uL [facility] Basophils/100 WBC (Bld) 0.9 % P [facility] Eosinophils (Bld) [#/Vol] 0.3 10*3/uL [facility] Eosinophils/100 WBC (Bld) 4.6 % [facility] Erythrocyte distribution width (RBC) [Ratio] 14.1 % 11.5 - 15.0 % [facility] Hematocrit (Bld) [Volume fraction] 39.1 % 35 - 47 % [facility] Hemoglobin (Bld) [Mass/Vol] 13.2 g/dL 11.7 - 15.5 g/dL [facility] Lymphocytes (Bld) [#/Vol] 1.7 10*3/uL [facility] Lymphocytes/100 WBC (Bld) 23.3 % [facility] MCH (RBC) [Entitic mass] 28.6 pg 27 - 34 pg [facility] MCHC (RBC) [Mass/Vol] 33.8 g/dL 32 - 36 g/dL P [facility] MCV (RBC) [Entitic vol] 85 fL 80 - 100 fL [facility] Monocytes (Bld) [#/Vol] 0.6 10*3/uL [facility] Monocytes/100 WBC (Bld) 7.7 % P [facility] Neutrophils (Bld) [#/Vol] 4.6 10*3/uL [facility] Neutrophils/100 WBC (Bld) 63.5 % [facility] Platelet mean volume (Bld) [Entitic vol] 8.7 fL 7 - 12 fL [facility] Platelets (Bld) [#/Vol] 366 10*3/uL [facility] RBC (Bld) [#/Vol] 4.63 10*6/uL [facility] WBC corrected for nucl RBC Auto (Bld) [#/Vol] 7.2 [facility] COMPREHENSIVE METABOLIC PANE Bijan 11-28-2023 Albumin [Mass/Vol] 3.9 g/dL Normal 3.2-5.3 [facility] Comment on above: Performed By: #### C BCA, CMP, 01658-6, 3084-1, THYR, 11437-1 #### [facility] ([id number]) [address] [facility] [place] [address] ALP [Catalytic activity/Vol] 101 U/L Normal 39-130 [facility] Comment on above: Performed By: #### C BCA, CMP, 12690-3, 4-1, THYR, 42207-5 #### [facility] ([id number]) [address], [address] [place] [address] ALT [Catalytic activity/Vol] 15 U/L Normal 0-31 [facility] Comment on above: Performed By: #### C BCA, CMP, 31396-3, 3083-1, THYR, 60919-1 #### [facility] ([id number]) [address], [address] [place] [address] Anion gap [Moles/Vol] 10 mmol/L Normal 5-15 [facility] Comment on above: Performed By: #### C BCA, CMP, 85494-2, 3083-, THYR, 64308-5 #### [facility] ([id number]) [address], [address] [place] [address] AST [Catalytic activity/Vol] 20 U/L Normal 0-41 [facility] Comment on above: Performed By: #### C BCA, CMP, 56836-1, 3083-, THYR, 91635-4 #### [facility] ([id number]) [address], [address] [place] [address] Bilirubin [Mass/Vol] 0.3 mg/dL Normal 0.3-1.2 [facility] Comment on above: Performed By: #### C BCA, CMP, 37296-1, 3083-, THYR, 10375-6 #### [facility] ([id number]) [address], [address] [place] [address] Calcium [Mass/Vol] 9.1 mg/dL Normal 8.5-10.5 [facility] Comment on above: Performed By: #### C BCA, CMP, 30227-3, 3083-, THYR, 80052-2 #### [facility] ([id number]) [address], [address] [place] [address] Chloride [Moles/Vol] 105 mmol/L Normal 98-109 [facility] Comment on above: Performed By: #### C BCA, CMP, 39556-8, 3083-, THYR, 58866-8 #### [facility] ([id number]) [address], [address] [place] [address] CO2 [Moles/Vol] 25 mmol/L Normal 22-32 [facility] Comment on above: Performed By: #### C BCA, CMP, 74665-3, 3083-, THYR, 13178-2 #### [facility] ([id number]) [address], [address] [place] [address] Creatinine [Mass/Vol] 1.06 mg/dL High 0.40-1.00 [facility] Comment on above: Result Comment: METH OD TRACEABLE TO IDMS STANDARD Performed By: #### C BCA, CMP, , 3083-09, THYR, 35406-5 #### [facility] ([id number]) [address], [address] [place] [address] GFR/1.73 sq M.predicted among non-blacks MDRD (S/P/Bld) [Vol rate/Area] 56 mL/min/{1.73_m2} Low >59 [facility] Comment on above: Result Comment: Reported eGFR is based on the CKD-EPI 2020 equation that does not use a race coefficient. Performed By: #### C BCA, CMP, 05517-0, 3083-, THYR, 54484-7 #### [facility] ([id number]) [address], [address] [place] [address] Glucose [Mass/Vol] 111 mg/dL High 65-99 [facility] Comment on above: Performed By: #### C BCA, CMP, 98824-9, 3084-1, THYR, 03402-3 #### [facility] ([id number]) [address], [address] [place] [address] Potassium [Moles/Vol] 3.7 mmol/L Normal 3.5-5.0 [facility] Comment on above: Performed By: #### C BCA, CMP, 78411-8, 4-1, THYR, 87099-0 #### [facility] ([id number]) [address], [address] [place] [address] Protein [Mass/Vol] 7.2 g/dL Normal 6.0-8.0 [facility] Comment on above: Performed By: #### C BCA, CMP, 22931-8, 3083-1, THYR, 98155-9 #### [facility] ([id number]) [address], [address] [place] [address] Sodium [Moles/Vol] 140 mmol/L Normal 134-146 [facility] Comment on above: Performed By: #### C BCA, CMP, 41048-9, 4-1, THYR, 88908-6 #### [facility] ([id number]) [address], [address] [place] [address] Urea nitrogen [Mass/Vol] 18 mg/dL Normal 5-27 [facility] Comment on above: Performed By: #### C BCA, CMP, 97469-5, 3084-1, THYR, 74362-1 #### [facility] ([id number]) [address], [address] [place] [address] Comprehensive metabolic pane bijan 11-28-2023 Albumin [Mass/Vol] 3.9 g/dL 3.2 - 5.3 g/dL [facility] ALP [Catalytic activity/Vol] 101 U/L 39 - 130 U/L [facility] ALT No additional P-5'-P [Catalytic activity/Vol] 15 U/L 0 - 31 U/L [facility] Anion gap [Moles/Vol] 10 mmol/L 5 - 15 mmol/L [facility] AST [Catalytic activity/Vol] 20 U/L 0 - 41 U/L [facility] Bilirubin [Mass/Vol] 0.3 mg/dL 0.3 - 1 .2 mg/dL [facility] Calcium [Mass/Vol] 9.1 mg/dL 8.5 - 10. 5 mg/dL [facility] Chloride [Moles/Vol] 105 mmol/L 98 - 10 9 mmol/L [facility] CO2 [Moles/Vol] 25 mmol/L 22 - 32 mmol/L [facility] Creatinine [Mass/Vol] 1.06 mg/dL High 0.40 - 1.00 mg/dL [facility] Comment on above: METHOD TRACEABLE TO [facility] STANDARD eGFR (CKD-EPI)non-race dependent 56 Low - PINF [facility] Comment on above: Reported eGFR is based on the CKD-EPI 2020 equation that does not use a race coefficient. Glucose [Mass/Vol] 111 mg/dL High 65 - 99 mg/dL [facility] Interpretation and review of laboratory results Abnormal [facility] Potassium [Moles/Vol] 3.7 mmol/L 3.5 - 5.0 mmol/L [facility] Protein [Mass/Vol] 7.2 g/dL 6.0 - 8.0 g/dL [facility] Sodium [Moles/Vol] 140 mmol/L 134 - 146 mmol/L [facility] Urea nitrogen [Mass/Vol] 18 mg/dL 5 - 27 mg/d L [facility] ESR Photometric method (Bld) [Velocity]on 11-28-2023 Interpretation and review of laboratory results Abnormal [facility] ESR, ERYTHROCYTE SEDIMENTATION RATE 78 mm/h High 0-30 [facility] Comment on above: Performed By: #### C BCA, CMP, 78977-9, 3084-1, THYR, 24933-3 #### [facility] ([id number]) [address], [address] [place] [address] Erythrocyte Sedimentation Ra te (ESR)on 11-28-2023 ESR Photometric method (Bld) [Velocity] 78 mm/h High 0 - 30 mm/h [facility] MAGNESIUMon 11-28-2023 Magnesium [Mass/Vol] 2.0 mg/dL Normal 1.8-2.6 [facility] Comment on above: Performed By: #### C BCA, CMP, , 3083-, THYR, 81529-2 #### [facility] ([id number]) [address] [place] [address] Magnesiumon 11-28-2023 Magnesium [Mass/Vol] 2.0 mg/dL 1.8 - 2 .6 mg/dL [facility] No Panel Informationon 11-27 [facility] THYROID PROFILEon 11-28-2023 Free T4 [Mass/Vol] 0.90 ng/dL Normal 0.61-1.60 [facility] Comment on above: Performed By: #### C BCA, CMP, , 3083-, THYR, 22747-9 #### [facility] ([id number]) [address] [place] [address] TSH 2.38 uIU/mL Normal 0.49-4.67 [facility] Comment on above: Performed By: #### C BCA, CMP, , 3083-09, THYR, 80344-0 #### [facility] ([id number]) [address] [place] [address] Thyroid profile includes TSH FT4on 11-28-2023 Free T4 [Mass/Vol] 0.90 ng/dL 0.61 - 1. 60 ng/dL [facility] TSH Qn 2.38 m[IU]/L [facility] URIC ACIDon 11-28-2023 Urate [Mass/Vol] 5.2 mg/dL Normal 2.6-7.2 [facility] Comment on above: Performed By: #### C BCA, CMP, 75766-7, 3084-1, THYR, 70582-4 #### [facility] ([id number]) [address] [facility] [place] [address] Uric acidon 11-28-2023 Urate [Mass/Vol] 5.2 mg/dL 2.6 - 7.2 mg/dL [facility] MR knee RT wo conon 10-24-19 MR knee RT wo con [facility] [place] [address] [place] [address] MRI Report Signed Patient: Lisa Cochran MR#: [id number] 5 : 1950 Acct:[id number] Age/Sex: 73 / F ADM Date: 10/24/23 Loc: Room: Type: [facility] Attending Dr: Aldo Wynn MD Copies to: [...] Eduardo Oates M.D.10/24/2023 1:18 PM Dictation Location: [place] [address] Transcribed By: [facility] 10/24/23 1318 Dictated By: Luis Eduardo Oates DO 10/24/23 1308 Signed By: 10/24/23 1318 Normal [facility] XR knee RT 2Von 10-03-2023 XR knee RT 2V [facility] [place] [address] [place] [address] XRay Report Signed Patient: Lisa Cochran MR#: [id number] 5 : 1950 Acct:[id number] Age/Sex: 73 / F ADM Date: 10/03/23 Loc: [facility] Room: Type: [facility] Attending Dr: Aldo Wynn MD Copies to: [...] Eduardo Oates M.D.10/03/2023 1:36 PM Dictation Location: [place] [address] Transcribed By: [facility] 10/03/23 1336 Dictated By: Luis Eduardo Oates DO 10/03/23 1335 Signed By: 10/03/23 1336 Normal [facility] COVID/FLU/RSV RT-PCRon 09-01 SARS-CoV-2 (COVID-19) RNA ANGEL+probe Ql (Unsp spec) Negative [facility] [employer] Other COVID/FLU/RSV RT-PCR Negative [facility] [employer] Other COMPREHENSIVE METABOLIC PANE [place]ijan 12-14-2021 Albumin [Mass/Vol] 4.3 g/dL Normal 3.6-5.1 [facility] Comment on above: Performed By: #### 1 0231, 7600 #### [facility] [place] [address] [employer] Supervisor: Napoleon Anne MD Albumin/Globulin [Mass ratio] 1.6 {ratio} Normal 1.0-2.5 [facility] Comment on above: Performed By: #### 1 0231, 7600 #### [facility] [place] [address] [employer] Supervisor: Napoleon Anne MD ALP [Catalytic activity/Vol] 108 U/L Normal 37-153 [facility] Comment on above: Performed By: #### 1 0231, 7600 #### [facility] [place] [address] [employer] Supervisor: Napoleon Anne MD ALT [Catalytic activity/Vol] 10 U/L Normal 6-29 [facility] Comment on above: Performed By: #### 1 0231, 7600 #### [facility] [place] [address] [employer] Supervisor: Napoleon Anne MD AST [Catalytic activity/Vol] 14 U/L Normal 10-35 [facility] Comment on above: Performed By: #### 1 0231, 7600 #### [facility] [place] [address] [place] [address] [employer] Supervisor: Napoleon Anne MD Bilirubin [Mass/Vol] 0.5 mg/dL Normal 0.2-1.2 [facility] Comment on above: Performed By: #### 1 0231, 7600 #### [facility] [address], [address] [place] [address] [employer] Supervisor: Napoleon Anne MD BUN/CREATININE RATIO NOT APPLICABLE Normal 6-22 [facility] Comment on above: Performed By: #### 1 023, 7600 #### [facility] of [address], [address] [place] [address] [employer] Supervisor: Napoleon Anne MD Calcium [Mass/Vol] 9.5 mg/dL Normal 8.6-10.4 [facility] Comment on above: Performed By: #### 1 023, 7600 #### [facility] [address], [address] [place] [address] [employer] Supervisor: Napoleon Anne MD Chloride [Moles/Vol] 106 mmol/L Normal 98-110 [facility] Comment on above: Performed By: #### 1 023, 7600 #### [facility] [address], [address] [place] [address] [employer] Supervisor: Napoleon Anne MD CO2 [Moles/Vol] 29 mmol/L Normal 20-32 [facility] Comment on above: Performed By: #### 1 023, 7600 #### [facility] [address], [address] [place] [address] [employer] Supervisor: Napoleon Anne MD Creatinine [Mass/Vol] 0.86 mg/dL Normal 0.60-0.93 [facility] Comment on above: Result Comment: For patients >49 years of age, the reference limit for Creatinine is approximately 13% higher for people identified as -Namibian. Performed By: #### 1 0231, 7600 #### [facility] [address], [address] [place] [address] [employer] Supervisor: Napoleon Anne MD eGFR NON-AFR. [place] 68 mL/min/1.73m2 Normal > OR = 60 [facility] Comment on above: Performed By: #### 1 023, 7600 #### [facility] [place] [address] [employer] Supervisor: Napoleon Anne MD GFR/1.73 sq M.predicted among blacks MDRD (S/P/Bld) [Vol rate/Area] 79 mL/min/{1.73_m2} Normal > OR = 60 [facility] Comment on above: Performed By: #### 1 023, 7600 #### [facility] [place] [address] [employer] Supervisor: Napoleon Anne MD Globulin (S) [Mass/Vol] 2.7 g/dL Normal 1.9-3.7 [facility] Comment on above: Performed By: #### 1 230, 0 #### [facility] [place] [address] [employer] Supervisor: Napoleon Anne MD Glucose [Mass/Vol] 100 mg/dL High 65-99 [facility] Comment on above: Result Comment: Fasting reference interval For someone without known diabetes, a glucose value between 100 and 125 mg/dL is consistent with prediabetes and should be confirmed with a follow-up test. Performed By: #### 1 230, 0 #### [facility] [place] [address] [employer] Supervisor: Napoleon Anne MD Potassium [Moles/Vol] 4.1 mmol/L Normal 3.5-5.[address] [facility] Comment on above: Performed By: #### 1 023, 7600 #### [facility] [place] [address] [employer] Supervisor: Napoleon Anne MD Protein [Mass/Vol] 7.0 g/dL Normal 6.1-8.1 [facility] Comment on above: Performed By: #### 1 023, 7600 #### [facility] [address] [place] [address] [employer] Supervisor: Napoleon Anne MD Sodium [Moles/Vol] 141 mmol/L Normal 135-146 [facility] Comment on above: Performed By: #### 1 0231, 7600 #### [facility] [address], [address] [place] [address] [employer] Supervisor: Napoleon Anne MD Urea nitrogen [Mass/Vol] 14 mg/dL Normal 7-25 [facility] Comment on above: Performed By: #### 1 0231, 7600 #### [facility] [address], [address] [place] [address] [employer] Supervisor: Napoleon Anne MD LIPID PANEL, [facility] 12-03 Cholesterol [Mass/Vol] 191 mg/dL Normal <200 [facility] Comment on above: Order Comment: FASTI NG:YES FASTING: YES Performed By: #### 1 0231, 7600 #### [facility] [place] [address] [employer] Supervisor: Napoleon Anne MD Cholesterol in HDL [Mass/Vol] 63 mg/dL Normal > OR = 50 [facility] Comment on above: Order Comment: FASTI NG:YES FASTING: YES Performed By: #### 1 0231, 7600 #### [facility] [place] [address] [employer] Supervisor: Napoleon Anne MD Cholesterol in LDL [Mass/Vol] [...] LDL-C. Obinna DELCID et al. ALIREZA. 2013;310(19): 2774-7241 (http://education.[employer].FarmLogs/faq/ZQN056) Performed By: #### 1 023, 7600 #### [facility] [address], [address] [place] [address] [employer] Supervisor: Napoleon Anne MD Cholesterol.total/Choles terol in HDL [Mass ratio] 3.0 {ratio} Normal <5.0 [facility] Comment on above: Order Comment: FASTI NG:YES FASTING: YES Performed By: #### 1 023, 7600 #### [facility] [address], [address] [place] [address] [employer] Supervisor: Napoleon Anne MD NON HDL CHOLESTEROL 128 mg/dL (calc) Normal <130 [facility] Comment on above: Order Comment: FASTI NG:YES FASTING: YES Result Comment: For patients with diabetes plus 1 major ASCVD risk factor, treating to a non-HDL-C goal of <100 mg/dL (LDL-C of <70 mg/dL) is considered a therapeutic option. Performed By: #### 1 023, 0 #### [facility] [address], [address] [place] [address] [employer] Supervisor: Napoleon Anne MD Triglyceride [Mass/Vol] 146 mg/dL Normal <150 [facility] Comment on above: Order Comment: FASTI NG:YES FASTING: YES Performed By: #### 1 023, 7600 #### [facility] [address], [address] [place] [address] [employer] Supervisor: Napoleon Anne MD BASIC METABOLIC PANELon 10-2 0-2020 BUN/CREATININE RATIO NOT APPLICABLE Normal 6-22 [facility] Comment on above: Performed By: #### 7 18, 61254, 23534, 905, 6399, 622 #### [facility] [address], [address] [place] [address] [employer] Supervisor: Napoleon Anne MD Calcium [Mass/Vol] 9.1 mg/dL Normal 8.6-10.4 [facility] Comment on above: Performed By: #### 7 18, 59152, 88553, 905, 6399, 622 #### [facility] of [address], [address] [place] [address] [employer] Supervisor: Napoleon Anne MD Chloride [Moles/Vol] 103 mmol/L Normal 98-110 [facility] Comment on above: Performed By: #### 7 18, 81954, 67536, 905, 6399, 622 #### [facility] [address], [address] [place] [address] [employer] Supervisor: Napoleon Anne MD CO2 [Moles/Vol] 22 mmol/L Normal 20-32 [facility] Comment on above: Performed By: #### 7 18, 50763, [id number], 905, 6399, 622 #### [facility] [place] [address] [employer] Supervisor: Napoleon Anne MD Creatinine [Mass/Vol] 0.93 mg/dL Normal 0.60-0.93 [facility] Diagn[facility] Comment on above: Result Comment: For patients >49 years of age, the reference limit for Creatinine is approximately 13% higher for people identified as -[place]. Performed By: #### 7 18, 14486, [id number], 905, 6399, 622 #### [facility] [place] [address] Traffic Warehouse Supervisor: Napoleon Anne MD eGFR NON-AFR. [place] 62 mL/min/1.73m2 Normal > OR = 60 [facility] Comment on above: Performed By: #### 7 18, 45793, 80637, 905, 6399, 622 #### [facility] [address], [address] [place] [address] Traffic Warehouse Supervisor: Napoleon Anne MD GFR/1.73 sq M.predicted among blacks MDRD (S/P/Bld) [Vol rate/Area] 72 mL/min/{1.73_m2} Normal > OR = 60 [facility] Comment on above: Performed By: #### 7 18, 71874, 33727, 905, 6399, 622 #### [facility] [address], [address] [place], [place] [address] Traffic Warehouse Supervisor: Napoleon Anne MD Glucose [Mass/Vol] 100 mg/dL High 65-99 [facility] Comment on above: Result Comment: Fasting reference interval For someone without known diabetes, a glucose value between 100 and 125 mg/dL is consistent with prediabetes and should be confirmed with a follow-up test. Performed By: #### 7 18, 09932, 38317, 905, 6399, 622 #### [facility] [place] [address] Traffic Warehouse Supervisor: Napoleon Anne MD Potassium [Moles/Vol] 4.0 mmol/L Normal 3.5-5.3 [facility] Comment on above: Performed By: #### 7 18, 96108, 46292, 905, 6399, 622 #### [facility] [place] [address] Traffic Warehouse Supervisor: Napoleon Anne MD Sodium [Moles/Vol] 139 mmol/L Normal 135-146 [facility] Comment on above: Performed By: #### 7 18, 37419, 60352, 905, 6399, 622 #### [facility] [place] [address] Traffic Warehouse Supervisor: Napoleon Anne MD Urea nitrogen [Mass/Vol] 15 mg/dL Normal 7-25 [facility] Comment on above: Performed By: #### 7 18, 22823, 74869, 905, 6399, 622 #### [facility] [place] [address] Traffic Warehouse Supervisor: Napoleon Anne MD CBC (INCLUDES DIFF/PLT)on Basophils (Bld) [#/Vol] 0.043 10*3/uL Normal 0-200 [facility] Comment on above: Performed By: #### 7 18, 21379, 78631, 905, 6399, 622 #### [facility] [place] [address] Traffic Warehouse Supervisor: Napoleon Anne MD Basophils/100 WBC (Bld) 0.7 % Normal [facility] Comment on above: Performed By: #### 7 18, 15962, 16438, 905, 6399, 622 #### [facility] of [place] [address] Traffic Warehouse Supervisor: Napoleon Anne MD Eosinophils (Bld) [#/Vol] 0.061 10*3/uL Normal 15-500 [facility] Comment on above: Performed By: #### 7 18, 12649, 47463, 905, 6399, 622 #### [facility] of [place] [address] Traffic Warehouse Supervisor: Napoleon Anne MD Eosinophils/100 WBC (Bld) 1.0 % Normal [facility] Comment on above: Performed By: #### 7 18, 58682, 56492, 905, 6399, 622 #### [facility] [place] [address] Traffic Warehouse Supervisor: Napoleon Anne MD Erythrocyte distribution width (RBC) [Ratio] 14.7 % Normal 11.0-15.0 [facility] Comment on above: Performed By: #### 7 18, 04408, 45003, 905, 6399, 622 #### [facility] of [place] [address] Traffic Warehouse Supervisor: Napoleon Anne MD Hematocrit (Bld) [Volume fraction] 41.5 % Normal 35.0-45.0 [facility] Comment on above: Performed By: #### 7 18, 05390, 87728, 905, 6399, 622 #### [facility] [place] [address] Traffic Warehouse Supervisor: Napoleon Anne MD Hemoglobin (Bld) [Mass/Vol] 13.5 g/dL Normal 11.7-15.5 [facility] Comment on above: Performed By: #### 7 18, 15314, 85864, 905, 6399, 622 #### [facility] of [address] [place] [address] Traffic Warehouse Supervisor: Napoleon Anne MD Lymphocytes (Bld) [#/Vol] 1.928 10*3/uL Normal 850-3900 [facility] Comment on above: Performed By: #### 7 18, 46053, 10460, 905, 6399, 622 #### [facility] [place] [address] Traffic Warehouse Supervisor: Napoleon Anne MD Lymphocytes/100 WBC (Bld) 31.6 % Normal [facility] Comment on above: Performed By: #### 7 18, 68245, 40295, 905, 6399, 622 #### [facility] [place] [address] Traffic Warehouse Supervisor: Napoleon Anne MD MCH (RBC) [Entitic mass] 28.3 pg Normal 27.0-33.0 [facility] Comment on above: Performed By: #### 7 18, 33184, 85204, 905, 6399, 622 #### [facility] [place] [address] Traffic Warehouse Supervisor: Napoleon Anne MD MCHC (RBC) [Mass/Vol] 32.5 g/dL Normal 32.0-36.[address] [facility] Comment on above: Performed By: #### 7 18, 99968, 73605, 905, 6399, 622 #### [facility] [place] [address] Traffic Warehouse Supervisor: Napoleon Anne MD MCV (RBC) [Entitic vol] 87.0 fL Normal 80.0-100.0 [facility] Comment on above: Performed By: #### 7 18, 22709, 12107, 905, 6399, 622 #### [facility] [place] [address] Traffic Warehouse Supervisor: Napoleon Anne MD Monocytes (Bld) [#/Vol] 0.409 10*3/uL Normal 200-950 [facility] Comment on above: Performed By: #### 7 18, 23572, 58478, 905, 6399, 622 #### [facility] [place] [address] Traffic Warehouse Supervisor: Napoleon Anne MD Monocytes/100 WBC (Bld) 6.7 % Normal [facility] Comment on above: Performed By: #### 7 18, 31745, 58011, 905, 6399, 622 #### [facility] [place] [address] Traffic Warehouse Supervisor: Napoleon Anne MD Neutrophils (Bld) [#/Vol] 3.66 10*3/uL Normal 6727-7468 [facility] Comment on above: Performed By: #### 7 18, 93467, 41023, 905, 6399, 622 #### [facility] [place] [address] Traffic Warehouse Supervisor: Napoleon Anne MD Neutrophils/100 WBC (Bld) 60 % Normal [facility] Comment on above: Performed By: #### 7 18, 99207, 76632, 905, 6399, 622 #### [facility] [place] [address] Traffic Warehouse Supervisor: Napoleon Anne MD Platelet mean volume (Bld) [Entitic vol] 10.5 fL Normal 7.5-12.5 [facility] Comment on above: Performed By: #### 7 18, 85673, 40737, 905, 6399, 622 #### [facility] [place] [address] Traffic Warehouse Supervisor: Napoleon Anne MD Platelets (Bld) [#/Vol] 307 10*3/uL Normal 140-400 [facility] Comment on above: Performed By: #### 7 18, 47329, 70134, 905, 6399, 622 #### [facility] [place] [address] Traffic Warehouse Supervisor: Napoleon Anne MD RBC (Bld) [#/Vol] 4.77 10*6/uL Normal 3.80-5.10 [facility] Comment on above: Performed By: #### 7 18, 25434, 60941, 905, 6399, 622 #### [facility] [address], [address] [place] [address] Traffic Warehouse Supervisor: Napoleon Anne MD WBC (Bld) [#/Vol] 6.1 10*3/uL Normal 3.8-10.8 [facility] Comment on above: Performed By: #### 7 18, 39399, 56616, 905, 6399, 622 #### [facility] [address], [address] [place] [address] Traffic Warehouse Supervisor: Napoleon Anne MD MAGNESIUMon 06-23-2021 Magnesium [Mass/Vol] 2.0 mg/dL Normal 1.5-2.5 [facility] Comment on above: Order Comment: FASTI NG:UNKNOWN FASTING: UNKNOWN Performed By: #### 7 18, 76407, 51608, 905, 6399, 622 #### [facility] [address], [address] [place] [address] Traffic Warehouse Supervisor: Napoleon Anne MD PHOSPHATE ( PHOSPHORUS)on 06-23-2021 Phosphate [Mass/Vol] 3.8 mg/dL Normal 2.1-4.3 [facility] Comment on above: Performed By: #### 7 18, 11261, 95784, 905, 6399, 622 #### [facility] [place] [address] Traffic Warehouse Supervisor: Napoleon Anne MD PTH, INTACT WITHOUT CALCIUMo [...] Normal High Performed By: #### 7 18, 32243, 88984, 905, 6399, 622 #### [facility] [place] [address] [facility]ly [facility], [address] [place], [place] [address] Traffic Warehouse Supervisor: Napoleon Anne MD URIC ACIDon 06-23-2021 Urate [Mass/Vol] 4.8 mg/dL Normal 2.5-7.0 [facility] Comment on above: Result Comment: Ther apeutic target for gout patients: <6.0 mg/dL Performed By: #### 7 18, 55871, 92744, 905, 6399, 622 #### [facility] [place] [address] [facility]ly [facility], [address] [place], [place] [id number] Traffic Warehouse Supervisor: Napoleon Anne MD VITAMIN D,25-OH,TOTAL,IAon 1 VITAMIN [...] D, (D2,D3), LC/MS/MS is recommended: order code [id number] (patients >2yrs). See Note 1 Note 1 For additional information, please refer to [email or web address] (This link is being provided for informational/ educational purposes only.) Performed By: #### 7 18, 52356, 62098, 905, 6399, 622 #### [facility] [address], [address] [place] [address] Traffic Warehouse Supervisor: Napoleon Anne MD Vital Signs Date Time Vital Sign Value Performing Clinician Facility 11-28-2023 09:01-0400 Body height 157.5 cm Kate Thornton [employer] SUPERVISOR-LEAD NITRATE PROCESSOR Work Phone: [facility] 11-28-2023 09:01-0400 Body mass index (BMI) [Ratio] 37.86 kg/m2 Kate PETERSONLEAD NITRATE PROCESSOR Work Phone: [facility] 11-28-2023 09:01-0400 Body temperature 98.01 [degF] Kate Thornton APRN-LEAD NITRATE PROCESSOR Work Phone: [facility] 11-28-2023 09:01-0400 Body weight 93.89 kg Kate PETERSONLEAD NITRATE PROCESSOR Work Phone: [facility] 11-28-2023 09:01-0400 Diastolic blood pressure 70 mm[Hg] Kate Thornton APRN-LEAD NITRATE PROCESSOR Work Phone: [facility] 11-28-2023 09:01-0400 Heart rate 119 /min Kate PETERSONLEAD NITRATE PROCESSOR Work Phone: [facility] 11-28-2023 09:01-0400 Respiratory rate 18 /min Kate PETERSONLEAD NITRATE PROCESSOR Work Phone: [facility] 11-28-2023 09:01-0400 SaO2% (BldA) [Mass fraction] 95 % Kate PETERSONLEAD NITRATE PROCESSOR Work Phone: [facility] 11-28-2023 09:01-0400 Systolic blood pressure 90 mm[Hg] Kate PETERSONLEAD NITRATE PROCESSOR Work Phone: [facility] 11-07-2023 09:42-0500 Body height 157.48 cm [facility] 11-07-2023 09:42-0500 Body mass index (BMI) [Ratio] 37.5 kg/m2 [facility] 11-07-2023 09:42-0500 Body weight 92.98 kg [facility] 10-24-2023 11:23-0500 Diastolic blood pressure 97 mm[Hg] [facility] 10-24-2023 11:23-0500 Heart rate 107 /min [facility] 10-24-2023 11:23-0500 Respiratory rate 18 /min [facility] 10-24-2023 11:23-0500 SaO2% (BldA) [Mass fraction] 94 % [facility] 10-24-2023 11:23-0500 Systolic blood pressure 144 mm[Hg] [facility] 10-24-2023 11:19-0500 Body height 154.94 cm [facility] 10-24-2023 11:19-0500 Body weight 94.34 kg [facility] 10-03-2023 09:45-0500 Body height 154.94 cm Aldo Olexa Other [facility] 10-03-2023 09:45-0500 Body mass index (BMI) [Ratio] 39.3 kg/m2 Aldo Olexa Other [facility] Other 10-03-2023 09:45-0500 Body weight 94.35 kg Aldo Olexa Other [facility] Other 10-03-2023 09:45-0500 Body weight 94.34 kg [facility] 09-01-2022 12:45-0500 Body height 154.94 cm Tanna Paige Other [facility] Other 09-01-2022 12:45-0500 Body mass index (BMI) [Ratio] 40.24 kg/m2 Tanna Paige Other [facility] Other 09-01-2022 12:45-0500 Body weight 96.62 kg Tanna Paige Other [facility] Other 09-01-2022 12:45-0500 Diastolic blood pressure 75 mm[Hg] Tanna Paige Other [facility] Other 09-01-2022 12:45-0500 Respiratory rate 18 /min Tanna Paige Other [facility] Other 09-01-2022 12:45-0500 SaO2% (BldA) [Mass fraction] 96 % Tanna Paige Other [facility] Other 09-01-2022 12:45-0500 Systolic blood pressure 114 mm[Hg] Tanna Paige Other [facility] Other 09-28-2021 11:15-0500 Body height 154.94 cm Aldo Olexa Other [facility] Other 09-28-2021 11:15-0500 Body mass index (BMI) [Ratio] 41.75 kg/m2 Aldo Olexa Other [facility] Other 09-28-2021 11:15-0500 Body weight 100.25 kg Aldo Olexa Other [facility] Other 08-19-2021 10:30-0500 Body height 154.94 cm Aldo Olexa Other [facility] Other 08-19-2021 10:30-0500 Body mass index (BMI) [Ratio] 41.56 kg/m2 Aldo Olexa Other [facility] Other 08-19-2021 10:30-0500 Body weight 99.79 kg Aldo Olexa Other [facility] Other Encounters Encounter Date Encounter Type Care Provider Facility Start: 02-01-2024 End: 02-02-2024 ambulatory [facility] Start: 02-01-2024 End: 02-01-2024 ambulatory [facility] Start: 01-23-2024 End: 01-23-2024 Patient encounter procedure [facility] [address] Work Phone: Start: 01-23-2024 End: 01-23-2024 ambulatory NON STAFF [facility] Work Phone: Start: 12-07-2023 Orders Only Kate Thornton [employer] SUPERVISOR-LEAD NITRATE PROCESSOR Work Phone: [facility] Comment on above: Erosive (osteo)arthr itis (Primary Dx) Start: 12-04-2023 End: 12-05-2023 ambulatory KATE THORNTON [facility] Start: 11-28-2023 End: 11-29-2023 Orders Only Kate Thornton [employer] SUPERVISOR-LEAD NITRATE PROCESSOR [facility] Comment on above: Swelling of multiple joints (Primary Dx) Start: 11-28-2023 End: 11-28-2023 Office outpatient visit 25 minutes Kate Thornton [employer] SUPERVISOR-LEAD NITRATE PROCESSOR Work Phone: [facility] Comment on above: Swelling of multiple joints (Primary Dx); Stage 3a chronic kidney disease (CMS-HCC); Palpitations Start: 11-21-2023 Refill Kate Thornton [employer] SUPERVISOR-LEAD NITRATE PROCESSOR Work Phone: [facility] Comment on above: Mixed hyperlipidemia Start: 11-07-2023 End: 11-07-2023 Patient encounter procedure [facility] Work Phone: Start: 10-24-2023 End: 10-24-2023 Patient encounter procedure [facility] [address] [place] Work Phone: Start: 10-24-2023 End: 10-24-2023 ambulatory NON STAFF [facility] Work Phone: Start: 10-03-2023 Office outpatient vi sit 25 minutes Aldo Wynn [facility] Start: 10-03-2023 End: 10-03-2023 Patient encounter procedure [facility] Start: 10-03-2023 End: 10-03-2023 ambulatory NON STAFF [facility] Other Start: 10-03-2023 End: 10-03-2023 Patient encounter procedure [facility]- Start: 08-07-2023 End: 08-07-2023 ambulatory JOSEFINA MELISSA Not Available Start: 09-01-2022 End: 09-01-2022 ambulatory Tanna Paige Other [facility] Other Start: 09-01-2022 Office outpatient vi sit 15 minutes Tanna Grecia [facility] Start: 09-28-2021 End: 09-28-2021 ambulatory Aldo Olexa Other [facility] Other Start: 09-28-2021 Office outpatient vi sit 15 minutes Aldo Olexa [facility] Start: 08-19-2021 End: 08-19-2021 ambulatory Aldo Olexa Other [facility] Other Start: 08-19-2021 Office outpatient ne w 30 minutes Aldo Olexa [facility] Start: 10-29-2020 End: 10-30-2020 Patient encounter procedure NONE LISTED REQUEST Facility: Procedures Date Procedure Procedure Detail Performing Clinician Start: 02-01-2024 Follow-up visit Follow-up KATE LOR LENNON JENNA Start: 11-28-2023 Ecg routine ecg w/le ast 12 lds w/i&r Kate Thornton [employer] SUPERVISOR-LEAD NITRATE PROCESSOR Work Phone: Start: 11-28-2023 Adult depression scr eening assessment Kate Thornton [employer] SUPERVISOR-LEAD NITRATE PROCESSOR Work Phone: Start: 10-24-2023 MRI of right knee Start: 10-03-2023 X-ray of right knee Start: 05-12-2023 Mammography Kate Thornton [employer] SUPERVISOR-LEAD NITRATE PROCESSOR Work Phone: Start: 03-20-2023 Adult depression scr eening assessment Kate Thornton [employer] SUPERVISOR-LEAD NITRATE PROCESSOR Work Phone: Plan of Treatment Date Care Activity Detail Author Start: 05-12-2025 Screening for malign ant neoplasm of [facility] Start: 11-27-2024 Adult BMI Screening [facility] Start: 11-27-2024 Depression Screening Depression [facility]ing [facility] Start: 11-27-2024 Fall Risk Screening Fall Risk Screen ing [facility] Start: 11-27-2024 Tobacco Screening Tobacco Screening [facility] Start: 06-02-2024 Adult BMI Screening Adult BMI Screen ing [facility] Start: 06-02-2024 Tobacco Screening Tobacco Screening [facility] Start: 03-20-2024 Depression Screening Depression Scre [facility]ing [facility] Start: 03-20-2024 Medicare Annual Well ness Visit Medicare Annual Wellness Visit [facility] Start: 03-18-2024 Fall Risk Screening Fall Risk Screen ing [facility] Start: 01-23-2024 [facility] Start: 11-28-2023 End: 11-27-2024 XR Hand - right 3 Views X-ray hand right minimum 3 views Imaging Routine Swelling of multiple joints Expected: 11/28/2023, Expires: 11/27/2024 [facility] Work Phone: Comment on above: Expected: 11/28/2023 , Expires: 11/27/2024 Start: 01-24-2013 DTaP,Tdap and Td Vac cines (1 - Tdap) DTaP,Tdap and Td Vaccines (1 - Tdap) [facility] Start: 2001 Administration of varicella zoster vaccine Zoster (Shingles) Vaccine (1 of 2) [facility] Start: 1969 Adult BMI Follow Up Plan Adult BMI Follow Up Plan [facility] POCT EKG POCT EKG ECG Rou ivone Palpitations 11/28/2023 10:12 AM EDT [facility] Work Phone: Immunizations Immunization Date Immunization Notes Care Provider Anel newsome 07-21-2022 Covid-19, Mrna, Lnp- s, Bivalent, Pf, 50mcg/0.5ml or 25mcg/0.25ml Kate Thornton [employer] SUPERVISOR-LEAD NITRATE PROCESSOR Work Phone: [facility] 07-21-2022 SARS-COV-2 (COVID-19 ) Vaccine, Unspecified Kate Thornton [employer] SUPERVISOR-LEAD NITRATE PROCESSOR Work Phone: [facility] 06-29-2021 Influenza Vaccine, Quadrivalent, Adjuvanted Kate Thornton [employer] SUPERVISOR-LEAD NITRATE PROCESSOR Work Phone: [facility] 11-03-2020 COVID-19, mRNA, LNP- S, PF, 30mcg/0.3mL Dose Kate Thornton [employer] SUPERVISOR-LEAD NITRATE PROCESSOR Work Phone: [facility] 10-29-2020 COVID-19, mRNA, LNP- S, PF, 100mcg/0.5mL Dose Kate Thornton [employer] SUPERVISOR-LEAD NITRATE PROCESSOR Work Phone: [facility] 06-02-2020 Influenza Vaccine, Quadrivalent, Adjuvanted Kate Thornton [employer] SUPERVISOR-LEAD NITRATE PROCESSOR Work Phone: [facility] 07-18-2018 Influenza, injectabl e, [place] Canine Kidney, preservative free, quadrivalent Kate Thornton [employer] SUPERVISOR-LEAD NITRATE PROCESSOR Work Phone: [facility] 07-18-2018 pneumococcal polysaccharide vaccine, 23 valent Kate Thornton [employer] SUPERVISOR-LEAD NITRATE PROCESSOR Work Phone: [facility] 02-13-2017 pneumococcal conjuga te vaccine, 13 valent Kate Thornton [employer] SUPERVISOR-LEAD NITRATE PROCESSOR Work Phone: [facility] 01-23-2013 TD(adult) unspecifie d formulation Kate Thornton [employer] SUPERVISOR-LEAD NITRATE PROCESSOR Work Phone: [facility] Payers Date Payer Category Payer Medicare [id number] 2022 Medicare AETNA MEDICARE A ETNA MEDICARE PLAN (PPO) [id number] 2022-[facility] [phone] [address] [place] [address] [id number] 1959 Self-pay 1950 Unknown [id number] 259 1950 Unknown [id number] 259 1950 Unknown [id number] 286 1950 Unknown [id number] 286 1950 Unknown [id number] 286 1951 Unknown [id number] 286 1950 Unknown [id number] 286 Private Health Insurance EB [id number] Unknown [id number] 93 Unknown [id number] 31 Unknown [id number] 31 Unknown [id number] 31 Social History Date Type Detail Facility Start: 10-15-2020 End: 06-02-2023 Sex Assigned At [facility] Start: 08-17-2021 End: 10-03-2023 Tobacco smoking status NHIS Never smoked tobacco (finding) [facility] Start: 1950 Sex Assigned At Female [facility] Start: 09-20-2019 End: 11-28-2023 Tobacco use and exposure Smokeless tobacco non-user [facility] Start: 06-02-2023 End: 11-28-2023 Alcohol intake Current drinker of alcohol (finding) [facility] Start: 10-15-2020 End: 06-02-2023 History of Social function [facility] Adolescent depressio n screening assessment 0 [facility] Start: 09-20-2019 Alcohol Comment Social/occasional [facility] Start: 1950 Sex Assigned At Not on file P [facility] Clinical Notes 12-04-2014 to 11-28-2023 Kate Thornton, [employer] SUPERVISOR-LEAD NITRATE PROCESSOR - 11/28/2023 9:00 AM EDT Note Date [...] acid; Future Stage 3a chronic kidney disease ([facility]-HCC) - Comprehensive metabolic panel; Future - Magnesium; [...] Gomez 11/28/23 1217 documented in this encounter [facility] 11-28-2023 Evaluation note Diagnosis Swelling of multiple joints- Primary Stage 3a chronic kidney disease ([facility]-HCC) Palpitations documented in this encounter [facility]01-30-2024 Evaluation note* Encounter Date Diagnosis Assessment Notes [...] pain of right knee (ICD-10 - M25.561) [facility] Other 12-29-2022 Evaluation note* Encounter Date Diagnosis [...] care provider if no improvement of symptoms. [facility] Other 01-25-2022 Evaluation note* Encounter Date Diagnosis [...] derangement of left knee (ICD-10 - M23.92) [facility] Other 12-16-2021 Evaluation note* Encounter Date Diagnosis [...] derangement of left knee (ICD-10 - M23.92) [facility] Other 04-02-2015 History general Narrative - Reported* Type Description Date Medical History HTN Medical History Hyperlipidemia Medical History Basal Cell carcinoma of scalp Surgical History basal cell carcinoma of scalp ( Dr Llanos) 12/04/14 [facility] Other Evaluation noteNo assessment information available [facility] Work Phone: Evaluation note* Diagnosis Mixed hyperlipidemia [facility]* Diagnosis Swelling of multiple joints- Primary documented in this encounter [facility] [employer] SystemEvaluation note* Diagnosis Erosive (osteo)arthritis- Primary documented in this encounter [facility]* Diagnosis Erosive (osteo)arthritis- Primary documented in this [facility]* Diagnosis Onset Date Resolution Status Acute medial meniscus tear of right knee acute Arthritis of right knee acut e [facility] Work Phone: InstructionsNot on filedocumented in this encounter [facility] System[facility]ructionsNot on filedocumented in [facility] encounter [facility] System[facility]ructionsNot on filedocumented in this encounter [facility] SystemInstructionsNot on filedocumented in this encounter [facility] [employer] SystemInstructionsNot on filedocumented in this encounter [facility] SystemReason for referral (narrative)* Consultation (Routine) - Pending Review Specialty Diagnoses / Procedures Referred By Contjaden t Referred To Contact Rheumatology Diagnoses Erosive (osteo)arthritis Kate Thornton, CARLOS ALBERTO-FAUSTINA [address] [place] [address] Dax Coello MD [address] [place] [address] Referral ID Status Reason Start Date Expiration Date Visits Requested Visits Authorized [id number] Pending Review Specialty Services Required 12/07/2023 12/06/2024 1 1 [facility] [employer] [facility] Summary Purpose Family History No Family History [...] and Reason for Visit 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 N x M25.561 M17.11 Chief Complaint MRI RESULTS r31.29 Reason for Visit Acute medial meniscu s tear of right knee Arthritis of right knee Additional Source Comments INFORMATION SOURCE (unrecogn ized section and content) DATE CREATED AUTHOR 10/27/2020 [facility] DATE CREATED AUTHOR AUTHOR'S ORGANIZ ATION 12/15/2021 [facility] DATE CREATED AUTHOR AUTHOR'S ORGANIZ ATION 08/08/2023 [facility] EPIC DATE CREATED AUTHOR AUTHOR'S ORGANIZ ATION 12/05/2023 [facility] DATE CREATED AUTHOR AUTHOR'S ORGANIZ ATION 02/02/2024 [facility] DATE CREATED AUTHOR AUTHOR'S ORGANIZ ATION 02/02/2024 [facility] DATE CREATED AUTHOR AUTHOR'S ORGANIZ ATION 02/06/[address] [facility] REASON FOR VISIT (unrecogniz ed [...] October 24, 2023 End: October 24, 2023 Rod Cup Filler Relationship Specialty Start Date End Date Kate Thornton [employer] SUPERVISOR[employer] NITRATE PROCESSOR [address] [facility] [place] [address] PCP - General Family Medicine 08/01/18 Rod [employer] Filler Relationship Specialty Start Date End Date Kate Thornton [employer] SUPER[employer]LE[employer] NITRATE PROCESSOR [address] [place] [address] PCP - General Family Medicine 08/01/18 Rod Cup Filler Relationship Specialty Start Date End Date Kate Thornton [employer] SUPERVIS[employer]LE[employer] NITRATE PROCESSOR [address] [place] [address] PCP - General Family Medicine 08/01/18 Team [...] BE BASED ON THE PRIMARY CLINICAL RECORDS. [facility]. provides no warranty or guarantee of the accuracy or completeness of information in this document.
[2024-05-20 13:58] LABS: Basophils Absolute Auto 0.1 10^3/uL (0.0-0.1); Basophils Percent Auto 0.7 % (0.2-2.0); Eosinophils Absolute Auto 0.1 10^3/uL (0.0-0.7); Eosinophils Percent Auto 0.9 % (0.9-7.0); Hematocrit 41.5 % (36.0-48.0); Hemoglobin 13.4 g/dL (12.0-16.0); Immature Granulocytes Abs Auto 0.02 10^3/uL (0.00-0.03); Immature Granulocytes Pct Auto 0.3 % (0.0-0.5); Lymphocytes Absolute Auto 2.2 10^3/uL (1.2-3.8); Lymphocytes Percent Auto 29.1 % (20.5-60.0); Mean Corpuscular HGB Conc 32.3 g/dL (29.9-35.2); Mean Corpuscular Hemoglobin 28.9 pg (26.7-34.0); Mean Corpuscular Volume 89.4 fL (81.0-99.0); Mean Platelet Volume 10.5 fL (9.5-13.5); Monocytes Absolute Auto 0.7 10^3/uL (0.3-0.8); Monocytes Percent Auto 8.5 % (1.7-12.0); Neutrophils Absolute Auto 4.6 10^3/uL (1.4-6.5); Neutrophils Percent Auto 60.5 % (43.0-75.0); Platelet Count 272 10^3/uL (150-450); Red Blood Count 4.64 10^6/uL (4.20-5.40); Red Cell Distribution Width 13.5 % (11.0-15.0); White Blood Count 7.6 10^3/uL (4.0-11.0)
[2024-05-20 14:07] LABS: Erythrocyte Sedimentation Rate 40 mm/hr (<=30)
[2024-05-20 14:28] LABS: Alanine Aminotransferase 21 U/L (14-59); Albumin Globulin Ratio 0.8; Alkaline Phosphatase 101 U/L (46-116); Aspartate Amino Transferase 15 U/L (15-37); BUN Creatinine Ratio 13.8; Bilirubin Total 0.6 mg/dL (0.2-1.0); Calcium 8.6 mg/dL (8.5-10.1); Chloride 105 mmol/L (98-107); Estimated GFR (African America 60 (>=60); Estimated GFR (Non-African Ame 49 (>=60); Globulin 3.7 g/dL; Glucose 89 mg/dL (74-106); Potassium 3.3 mmol/L (3.5-5.1); Sodium 143 mmol/L (136-145); Total Protein 6.7 g/dL (6.4-8.2)
[2024-05-20 15:02] LABS: Anion Gap 13.2; Carbon Dioxide 28.1 mmol/L (21.0-32.0)
== END 2024-05-20 13:26 | disposition home or self-care (01) ==
LOC: LAB 13:26
PROVIDERS: PCP Family Medicine; Visit Provider Internal Medicine Rheumatology
DX: M06.9 Rheumatoid arthritis, unspecified (principal); M19.90 Unspecified osteoarthritis, unspecified site; Z51.81 Encounter for therapeutic drug level monitoring
CPT/HCPCS: 36415; 80053; 85025; 85652

== ENCOUNTER 2024-06-18 08:53 | Outpatient (OUT) | payer MEDICARE, SELFPAY ==
--- OUTSIDE RECORDS SUMMARY | 2024-06-18 09:17 | XMS_ITS | CCD ---
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 Repository (9 sources) Lisinopril Drug Allergy 09-20-2019 Angio[facility] Work Phone: (1 source) Lisinopril Drug Allergy 11-07-2023 [facility] Repository Medications Current Medications Medication Drug [...] 0 11/21/2023 Active take 1 capsule by [facility] every twenty-four hours FLUoxetine HCl 10 MG 1 capsule in the morning Orally Once a day Active take 1 capsule by [facility] once daily in the morning FLUoxetine HCl 10 MG 1 capsule in the morning Orally Once a day Active fuemxhnkhkhb-ujdl-vbbgh acid (CENTRUM) 18-400 mg-mcg tablet (4 sources) take 1 tablet by mouth in the morning gsjkjdjdbqch-bltf-cxkmb acid (CENTRUM) 18-400 mg-mcg tablet Take 1 [...] 02-01-2024 Albumin [Mass/Vol] 4.0 g/dL Normal 3.2-5.3 [facility] Comment on above: Performed By: #### C , 13513-7 #### [facility] ([id number]) [address], [address] [place] [address] ALP [Catalytic activity/Vol] 103 U/L Normal 39-[address] [facility] Comment on above: Performed By: #### Pete VINES, 52115-3 #### [facility] ([id number]) [address], [address] [place] [address] ALT [Catalytic activity/Vol] 15 U/L Normal 0-[address] [facility] Comment on above: Performed By: #### Pete VINES, 55179-7 #### [facility] ([id number]) [address], [address] [place] [address] Anion gap [Moles/Vol] 10 mmol/L Normal 5-15 [facility] Comment on above: Performed By: #### Pete VINES, 35431-9 #### [facility] ([id number]) [address], [address] [place] [address] AST [Catalytic activity/Vol] 15 U/L Normal 0-[address] [facility] Comment on above: Performed By: #### Pete VINES, 06551-8 #### [facility] ([id number]) [address], [address] [place] [address] Bilirubin [Mass/Vol] 0.4 mg/dL Normal 0.3-1.2 [facility] Comment on above: Performed By: #### Pete VINES, 39169-1 #### [facility] ([id number]) [address], [address] [place] [address] Calcium [Mass/Vol] 8.9 mg/dL Normal 8.5-10.5 [facility] Comment on above: Performed By: #### Pete VINES, 62700-5 #### [facility] ([id number]) [address], [address] [place] [address] Chloride [Moles/Vol] 105 mmol/L Normal 98-109 [facility] Comment on above: Performed By: #### C JASMYN, 16066-1 #### [facility] ([id number]) [address], [address] [place] [address] CO2 [Moles/Vol] 24 mmol/L Normal 22-[address] [facility] Comment on above: Performed By: #### Pete VINES, 10765-4 #### [facility] ([id number]) [address], [address] [place] [address] Creatinine [Mass/Vol] 1.00 mg/dL Normal 0.40-1.00 [facility] Comment on above: Result Comment: METH OD TRACEABLE TO IDMS STANDARD Performed By: #### Pete VINES, 45852-1 #### [facility] ([id number]) [address], [address] [place] [address] GFR/1.73 sq M.predicted among non-blacks MDRD (S/P/Bld) [Vol rate/Area] 60 mL/min/{1.73_m2} Normal >[address] [facility] Comment on above: Result Comment: Reported eGFR is based on the CKD-EPI 2020 equation that does not use a race coefficient. Performed By: #### Ptee VINES, 90797-5 #### [facility] ([id number]) [address], [address] [place] [address] Glucose [Mass/Vol] 100 mg/dL High 65-99 [facility] Comment on above: Performed By: #### Pete VINES, 09100-3 #### [facility] ([id number]) [address], [address] [place] [address] Potassium [Moles/Vol] 4.3 mmol/L Normal 3.5-5.0 [facility] Comment on above: Performed By: #### Pete VINES, 35922-1 #### [facility] ([id number]) [address], [address] [place] [address] Protein [Mass/Vol] 7.6 g/dL Normal 6.0-8.0 [facility] Comment on above: Performed By: #### Pete VINES, 63628-5 #### [facility] ([id number]) [address], [address] [place] [address] Sodium [Moles/Vol] 139 mmol/L Normal 134-146 [facility] Comment on above: Performed By: #### Pete VINES, 52297-8 #### [facility] ([id number]) [address], [address] [place] [address] Urea nitrogen [Mass/Vol] 21 mg/dL Normal 5-[address] [facility] Comment on above: Performed By: #### Pete VINES, 09632-3 #### [facility] ([id number]) [address], [address] [place] [address] Lipid 1996 panelon 4 Cholesterol [Mass/Vol] 189 mg/dL Normal 150-200 [facility] Comment on above: Performed By: #### Pete VINES, 64061-0 #### [facility] ([id number]) [address], [address] [place] [address] Cholesterol in HDL [Mass/Vol] 65 mg/dL Normal >[address] [facility] Comment on above: Result Comment: HDL <40 mg/dL - High Risk HDL > or = 40mg/dL- Desirable HDL >60 mg/dL - Negative Risk Performed By: #### Pete VINES, 80670-6 #### [facility] ([id number]) [address], [address] [place] [address] Cholesterol in LDL [Mass/Vol] 106 mg/dL Normal <[address] [facility] Comment on above: Result Comment: LDL <100 mg/dL - Desirable LDL >160 mg/dL - High Risk Performed By: #### C JASMYN, 85052-1 #### [facility] ([id number]) [address], [address] [place] [address] Cholesterol in VLDL [Mass/Vol] 18 mg/dL Normal 0-[address] [facility] Comment on above: Performed By: #### C JASMYN, 54166-2 #### [facility] ([id number]) [address], [address] [place] [address] CHOLESTEROL:HDL 2.9 Normal 1.0-5.[address] [facility] Comment on above: Performed By: #### C JASMYN, 37225-1 #### [facility] ([id number]) [address], [address] [place] [address] Triglyceride [Mass/Vol] 91 mg/dL Normal 27-[address] [facility] Comment on above: Performed By: #### C JASMYN, 79375-7 #### [facility] ([id number]) [address], [address] [place] [address] MANUEL Antinuclear Antibodieson 01-23-2024 Antinuclear Abs, IFA Negative Normal . [facility] Comment on above: Result Comment: Nega tive <1:80 Borderline 1:80 Positive >1:80 ICAP nomenclature: AC-0 For more information about Hep-2 cell patterns use ANApatterns.org, the official website for the International Consensus on Antinuclear Antibody (MANUEL) Patterns (ICAP). Performed at: - [facility] [id number] Realtime Court Reporter: Sly Mack PhD, Phone: [phone] PERFORMED BY: [facility] [place] [address] PATHOLOGIST EMAIL CAMPAIGN SPECIALIST AYO CRUZ M.D. Performed By: #### A LDOLASE, MANUEL #### [facility] , #### CK, CMP, CRP, T4F, TSH3, CBC, ESR #### [facility] [address] [place] [address] [place] Alanine aminotransferase [En zymatic activity/volume] in Serum or PlasmaOrdered By: Dax Coello on 01-23-2024 ALT [Catalytic activity/Vol] 24 U/L Normal 7-52 [facility] Comment on above: Performed By: #### A LDOLASE, MANUEL #### [facility] , #### CK, CMP, CRP, T4F, TSH3, CBC, ESR #### [facility] [address] [place] [address] [place] Albumin [Mass/volume] in Ser um or Plasma by Bromocresol green (BCG) dye binding methoOrdered By: Dax Coello on 01-23-2024 Albumin BCG dye [Mass/Vol] 4.3 g/dL 3.5-5.7 [facility] Aldolaseon 01-23-2024 Aldolase 3.3 U/L Normal 3.3-10.3 [facility] Comment on above: Result Comment: Perf ormed at: - [facility] [address] [id number] Realtime Court Reporter: Sly Mcak PhD, Phone: [phone] PERFORMED BY: [place] [address] PATHOLOGIST EMAIL CAMPAIGN SPECIALIST AYO CRUZ M.D. Performed By: #### A LDOLASE, MANUEL #### [facility] , #### CK, CMP, CRP, T4F, TSH3, CBC, ESR #### [facility] [address] [place] [address] [place] Alkaline phosphatase [Enzyma tic activity/volume] in Serum or PlasmaOrdered By: Dax Coello on 01-23-2024 ALP [Catalytic activity/Vol] 119 U/L High 34-104 [facility] Comment on above: Performed By: #### A LDOLASE, MANUEL #### [facility] , #### CK, CMP, CRP, T4F, TSH3, CBC, ESR #### [address] Aspartate aminotransferase [ Enzymatic activity/volume] in Serum or PlasmaOrdered By: Dax Coello on 01-23-2024 AST [Catalytic activity/Vol] 30 U/L Normal 13-39 [facility] Comment on above: Performed By: #### A LDOLASE, MANUEL #### [facility] , #### CK, CMP, CRP, T4F, TSH3, CBC, ESR #### [address] Automated basophil %Ordered By: Dax Coello on 01-23-2024 Basophils/100 WBC (Bld) 0.9 % Normal . [facility] Comment on above: Performed By: #### A LDOLASE, MANUEL #### [facility] , #### CK, CMP, CRP, T4F, TSH3, CBC, ESR #### [address] Automated basophil countOrde red By: Dax Coello on 01-23-2024 Basophils (Bld) [#/Vol] 0.1 10*3/uL Normal 0.0-0.2 [facility] Comment on above: Performed By: #### A LDOLASE, MANUEL #### [facility] , #### CK, CMP, CRP, T4F, TSH3, CBC, ESR #### [address] Automated blood monocyte cou ntOrdered By: Dax Coello on 01-23-2024 Monocytes (Bld) [#/Vol] 0.5 10*3/uL Normal 0.0-0.8 [facility] Comment on above: Performed By: #### A LDOLASE, MANUEL #### [facility] , #### CK, CMP, CRP, T4F, TSH3, CBC, ESR #### [address] Automated eosinophil %Ordere d By: Dax Vergararow on 01-23-2024 Eosinophils/100 WBC (Bld) 2.4 % Normal . [facility] Comment on above: Performed By: #### A LDOLASE, MANUEL #### [facility] , #### CK, CMP, CRP, T4F, TSH3, CBC, ESR #### [facility] [address] Automated eosinophil countOr dered By: Dax Coello on 01-23-2024 Eosinophils (Bld) [#/Vol] 0.2 10*3/uL Normal 0.0-0.45 [facility] Comment on above: Performed By: #### A LDOLASE, MANUEL #### [facility] , #### CK, CMP, CRP, T4F, TSH3, CBC, ESR #### [facility] [address] [place] [address] Automated monocyte %Ordered By: Dax Vergararow on 01-23-2024 Monocytes/100 WBC (Bld) 6.8 % Normal . [facility] Comment on above: Performed By: #### A LDOLASE, MANUEL #### [facility] , #### CK, CMP, CRP, T4F, TSH3, CBC, ESR #### [address] Automated neutrophil %Ordere d By: Dax Vergararow on 01-23-2024 Neutrophils/100 WBC (Bld) 61.7 % Normal . [facility] Comment on above: Performed By: #### A LDOLASE, MANUEL #### [facility] , #### CK, CMP, CRP, T4F, TSH3, CBC, ESR #### [facility] [address] [place] [address] Bilirubin.total [Mass/volume ] in Serum or PlasmaOrdered By: Dax Vergararow on 01-23-2024 Bilirubin [Mass/Vol] 0.5 mg/dL Normal 0.3-1.0 [facility] Comment on above: Performed By: #### A LDOLASE, MANUEL #### [facility] , #### CK, CMP, CRP, T4F, TSH3, CBC, ESR #### [facility] [address] [place] [address] [place] C reactive protein [Mass/vol ume] in Serum or PlasmaOrdered By: Dax Coello on 01-23-2024 CRP [Mass/Vol] 1.0 mg/dL 0.0-0.5 [facility] C-Reactive Proteinon 024 C-Reactive Protein 1.0 mg/dL High 0.0-0.5 [facility] Comment on above: Performed By: #### A LDOLASE, MANUEL #### [facility] , #### CK, CMP, CRP, T4F, TSH3, CBC, ESR #### [place] [address] [place] Calcium [Mass/volume] in Ser um or PlasmaOrdered By: Dax Coello on 01-23-2024 Calcium [Mass/Vol] 9.6 mg/dL Normal 8.6-10.3 [facility] Comment on above: Performed By: #### A LDOLASE, MANUEL #### [facility] , #### CK, CMP, CRP, T4F, TSH3, CBC, ESR #### [facility] [address] [place] [address] [place] Carbon dioxide, total [Moles /volume] in Serum or PlasmaOrdered By: Dax Coello on 01-23-2024 CO2 [Moles/Vol] 25.5 mmol/L Normal 21.0-31.0 [facility] Comment on above: Performed By: #### A LDOLASE, MANUEL #### [facility] , #### CK, CMP, CRP, T4F, TSH3, CBC, ESR #### [place] [address] [place] Chloride [Moles/volume] in S beatris or PlasmaOrdered By: Dax Coello on 01-23-2024 Chloride [Moles/Vol] 107 mmol/L Normal 98-107 [facility] Comment on above: Performed By: #### A LDOLASE, MANUEL #### [facility] , #### CK, CMP, CRP, T4F, TSH3, CBC, ESR #### [facility] [address] Complete Blood Count Auto Di ffon 01-23-2024 Mean Corpuscular HGB Conc 33.2 g/dL Normal 32.0-35.0 [facility] Comment on above: Performed By: #### A LDOLASE, MANUEL #### [facility] , #### CK, CMP, CRP, T4F, TSH3, CBC, ESR #### [address] NRBC% 0.2 /100{WBC} Normal 0-0.5 [facility] Comment on above: Performed By: #### A LDOLASE, MANUEL #### [facility] , #### CK, CMP, CRP, T4F, TSH3, CBC, ESR #### [address] Comprehensive Metabolic Pane bijan 01-23-2024 Albumin [Mass/Vol] 4.3 g/dL Normal 3.5-5.7 [facility] Comment on above: Performed By: #### A LDOLASE, MANUEL #### [facility] , #### CK, CMP, CRP, T4F, TSH3, CBC, ESR #### [place] [address] [place] GFR/1.73 sq M.predicted MDRD (S/P/Bld) [Vol rate/Area] 47.618 mL/min/{1.73_m2} Normal [facility] Comment on above: Performed By: #### A LDOLASE, MANUEL #### [facility] , #### CK, CMP, CRP, T4F, TSH3, CBC, ESR #### [facility] [address] [place] [address] Creatine kinase [Enzymatic a ctivity/volume] in Serum or PlasmaOrdered By: Dax Mode on 01-23-2024 CK [Catalytic activity/Vol] 69 U/L Normal 30-223 [facility] Comment on above: Result Comment: PERF ORMED BY: [place] [address] PATHOLOGIST EMAIL CAMPAIGN SPECIALIST AYO CRUZ M.D. Performed By: #### A LDOLASE, MANUEL #### [facility] , #### CK, CMP, CRP, T4F, TSH3, CBC, ESR #### [address] Creatinine [Mass/volume] in Serum or PlasmaOrdered By: Dax Coello on 01-23-2024 Creatinine [Mass/Vol] 1.21 mg/dL High 0.60-1.20 [facility] Comment on above: Performed By: #### A LDOLASE, MANUEL #### [facility] , #### CK, CMP, CRP, T4F, TSH3, CBC, ESR #### [facility] [address] [place] [address] Erythrocyte Sedimentation Ra solo 01-23-2024 ESR (Bld) [Velocity] 58 mm/h High 0-29 [facility] Comment on above: Result Comment: PERF ORMED BY: [place] [address] PATHOLOGIST EMAIL CAMPAIGN SPECIALIST AYO CRUZ M.D. Performed By: #### A LDOLASE, MANUEL #### [facility] , #### CK, CMP, CRP, T4F, TSH3, CBC, ESR #### [facility] [address] [place] [address] Erythrocyte distribution wid th [Ratio] by Automated countOrdered By: Dax Mode on 01-23-2024 Erythrocyte distribution width (RBC) [Ratio] 15.3 % Normal 11.9-15.3 [facility] Comment on above: Performed By: #### A LDOLASE, MANUEL #### [facility] , #### CK, CMP, CRP, T4F, TSH3, CBC, ESR #### [facility] [address] Erythrocyte sedimentation ra te by Photometric methodOrdered By: Daxsilvia Coello on 01-23-2024 ESR Photometric method (Bld) [Velocity] 58 mm/hr 0-29 [facility] Erythrocytes [#/volume] in B lood by Automated countOrdered By: Dax Mode on 01-23-2024 RBC (Bld) [#/Vol] 5.04 10*6/uL High 3.60-5.00 [facility] Comment on above: Performed By: #### A LDOLASE, MANUEL #### [facility] , #### CK, CMP, CRP, T4F, TSH3, CBC, ESR #### [facility] [address] Glucose [Mass/volume] in Ser um or PlasmaOrdered By: Dax Coello on 01-23-2024 Glucose [Mass/Vol] 110 mg/dL High 70-100 [facility] Comment on above: ADA recommended refe rence rangeRandom Glucose Reference Range is dependent on time and content of last meal. Glucose of more than 200 mg/dL in a nonstressed, ambulatory subject supports the diagnosis of Diabetes Mellitus. Result Comment: [place] om Glucose Reference Range is dependent on time and content of last meal. Glucose of more than 200 mg/dL in a nonstressed, ambulatory subject supports the diagnosis of Diabetes Mellitus. ADA recommended reference range Performed By: #### A LDOLASE, MANUEL #### [facility] , #### CK, CMP, CRP, T4F, TSH3, CBC, ESR #### [facility] [address] [place] [address] [place] Hematocrit [Volume Fraction] of Blood by Automated countOrdered By: Daxsilvia Coello on 01-23-2024 Hematocrit (Bld) [Volume fraction] 43.1 % Normal 34.0-46.4 [facility] Comment on above: Performed By: #### A LDOLASE, MANUEL #### [facility] , #### CK, CMP, CRP, T4F, TSH3, CBC, ESR #### [facility] [address] [place] [address] [place] Hemoglobin [Mass/volume] in BloodOrdered By: Dax Coello on 01-23-2024 Hemoglobin (Bld) [Mass/Vol] 14.3 g/dL Normal 11.8-15.4 [facility] Comment on above: Performed By: #### A LDOLASE, MANUEL #### [facility] , #### CK, CMP, CRP, T4F, TSH3, CBC, ESR #### [facility] [address] [place] [address] Leukocytes [#/volume] correc luis alfredo for nucleated erythrocytes in Blood by Automated counOrdered By: Dax Coello on 01-23-2024 WBC corrected for nucl RBC Auto (Bld) [#/Vol] 7.1 10*3/uL 3.8-11.6 [facility] Leukocytes [#/volume] in Blo od by Automated countOrdered By: Dax Coello on 01-23-2024 WBC (Bld) [#/Vol] 7.1 10*3/uL Normal 3.8-11.6 [facility] Comment on above: Performed By: #### A LDOLASE, MANUEL #### [facility] , #### CK, CMP, CRP, T4F, TSH3, CBC, ESR #### [facility] [address] [place] [address] [place] Lymphocytes [#/volume] in Bl ood by Automated countOrdered By: Dax Vergararow on 01-23-2024 Lymphocytes (Bld) [#/Vol] 2.0 10*3/uL Normal 1.00-4.8 [facility] Comment on above: Performed By: #### A LDOLASE, MANUEL #### [facility] , #### CK, CMP, CRP, T4F, TSH3, CBC, ESR #### [facility] [address] [place] [address] Lymphocytes/100 leukocytes i n Blood by Automated countOrdered By: Dax Vergararow on 01-23-2024 Lymphocytes/100 WBC (Bld) 28.2 % Normal . [facility] Comment on above: Performed By: #### A LDOLASE, MANUEL #### [facility] , #### CK, CMP, CRP, T4F, TSH3, CBC, ESR #### [address] MCH [Entitic mass] by Automa luis alfredo countOrdered By: Dax Vergararow on 01-23-2024 MCH (RBC) [Entitic mass] 28.4 pg Normal 24.7-34.3 [facility] Comment on above: Performed By: #### A LDOLASE, MANUEL #### [facility] , #### CK, CMP, CRP, T4F, TSH3, CBC, ESR #### [address] MCHC Auto (RBC) [Mass/Vol]Or dered By: Dax Coello on 01-23-2024 MCHC (RBC) [Mass/Vol] 33.2 g/dL 32.0-35.0 [facility] MCV [Entitic volume] by Auto mated countOrdered By: Dax Coello on 01-23-2024 MCV (RBC) [Entitic vol] 85.5 fL Normal 80-100 [facility] Comment on above: Performed By: #### A LDOLASE, MANUEL #### [facility] , #### CK, CMP, CRP, T4F, TSH3, CBC, ESR #### [address] Neutrophils [#/volume] in Bl ood by Automated countOrdered By: Dax Coello on 01-23-2024 Neutrophils (Bld) [#/Vol] 4.4 10*3/uL Normal 1.8-7.7 [facility] Comment on above: Performed By: #### A LDOLASE, MANUEL #### [facility] , #### CK, CMP, CRP, T4F, TSH3, CBC, ESR #### [facility] [address] [place] [address] No Panel InformationOrdered By: Dax Coello on 01-23-2024 Estimated GFR (CKD-EPI) 47.618 mL/Min [facility] Creatinine Clearance (Chem N/A [facility] Nucleated erythrocytes [Pres ence] in Blood by Automated countOrdered By: Dax Vergararow on 01-23-2024 Nucleated RBC Auto Ql (Bld) 0.2 /100{WBC} 0-0.5 [facility] Platelet mean volume [Entiti c volume] in Blood by Automated countOrdered By: Dax Vergararow on 01-23-2024 Platelet mean volume (Bld) [Entitic vol] 8.6 fL Normal 6.3-10.7 [facility] Comment on above: Performed By: #### A LDOLASE, MANUEL #### [facility] , #### CK, CMP, CRP, T4F, TSH3, CBC, ESR #### [facility] [address] [place] [address] Platelets [#/volume] in Bloo d by Automated countOrdered By: Dax Vergararow on 01-23-2024 Platelets (Bld) [#/Vol] 380 10*3/uL Normal 150-450 [facility] Comment on above: Performed By: #### A LDOLASE, MANUEL #### [facility] , #### CK, CMP, CRP, T4F, TSH3, CBC, ESR #### [facility] [address] [place] [address] Potassium [Moles/volume] in Serum or PlasmaOrdered By: Dax Vergararow on 01-23-2024 Potassium [Moles/Vol] 4.5 mmol/L Normal 3.5-5.1 [facility] Comment on above: Performed By: #### A LDOLASE, MANUEL #### [facility] , #### CK, CMP, CRP, T4F, TSH3, CBC, ESR #### [facility] [address] Protein [Mass/volume] in Ser um or PlasmaOrdered By: Dax Coello on 01-23-2024 Protein [Mass/Vol] 7.5 g/dL Normal 6.4-8.9 [facility] Comment on above: Performed By: #### A LDOLASE, MANUEL #### [facility] , #### CK, CMP, CRP, T4F, TSH3, CBC, ESR #### [facility] [address] Serum globulin measurement b y calculation (mass/volume)Ordered By: Dax Coello on 01-23-2024 Globulin (S) [Mass/Vol] 3.2 g/dL Normal [facility] Comment on above: Performed By: #### A LDOLASE, MANUEL #### [facility] , #### CK, CMP, CRP, T4F, TSH3, CBC, ESR #### [facility] [address] Serum or plasma albumin/glob ulin mass ratioOrdered By: Dax Coello on 01-23-2024 Albumin/Globulin [Mass ratio] 1.3 {ratio} Normal [facility] Comment on above: Performed By: #### A LDOLASE, MANUEL #### [facility] , #### CK, CMP, CRP, T4F, TSH3, CBC, ESR #### [facility] [address] Serum or plasma anion gap de terminationOrdered By: Dax Coello on 01-23-2024 Anion gap [Moles/Vol] 12.0 mmol/L Normal 6.0-15.0 [facility] Comment on above: Performed By: #### A LDOLASE, MANUEL #### [facility] , #### CK, CMP, CRP, T4F, TSH3, CBC, ESR #### [facility] [address] [place] [address] Sodium [Moles/volume] in Ser um or PlasmaOrdered By: Dax Coello on 01-23-2024 Sodium [Moles/Vol] 140 mmol/L Normal 136-145 [facility] Comment on above: Performed By: #### A LDOLASE, MANUEL #### [facility] , #### CK, CMP, CRP, T4F, TSH3, CBC, ESR #### [facility] [address] [place] [address] Thyrotropin [Units/volume] i n Serum or PlasmaOrdered By: Dax Coello on 01-23-2024 TSH Qn 1.66 m[IU]/L Normal 0.45-5.33 [facility] [facility] Comment on above: Result Comment: PERF ORMED BY: [place] [address] PATHOLOGIST EMAIL CAMPAIGN SPECIALIST AYO CRUZ M.D. Performed By: #### A LDOLASE, MANUEL #### [facility] , #### CK, CMP, CRP, T4F, TSH3, CBC, ESR #### [facility] [address] [place] [address] Thyroxine (T4) free [Mass/vo lume] in Serum or PlasmaOrdered By: Dax Coello on 01-23-2024 Free T4 [Mass/Vol] 0.93 ng/dL Normal 0.61-1.12 [facility] Comment on above: Performed By: #### A LDOLASE, MANUEL #### [facility] , #### CK, CMP, CRP, T4F, TSH3, CBC, ESR #### [facility] [address] [place] [address] [place] Urea nitrogen [Mass/volume] in Serum or PlasmaOrdered By: Dax Coello on 01-23-2024 Urea nitrogen [Mass/Vol] 14 mg/dL Normal 7-25 [facility] Comment on above: Performed By: #### A LDOLASE, MANUEL #### [facility] , #### CK, CMP, CRP, T4F, TSH3, CBC, ESR #### [facility] [address] CBC AND AUTO DIFFon 11-28-19 24 ABSOLUTE BASOPHIL 0.1 X10E9/L Normal 0.0-0.2 [facility] Comment on above: Performed By: #### C BCA, CMP, 63947-4, 3083-, THYR, 00777-2 #### [facility] ([id number]) [address], [address] [place] [address] ABSOLUTE NEUTROPHIL 4.6 X10E9/L Normal 1.5-6.6 [facility] Comment on above: Performed By: #### C BCA, CMP, 85962-3, 3083-, THYR, 74915-5 #### [facility] ([id number]) [address], [address] [place] [address] Basophils/100 WBC (Bld) 0.9 % Normal [facility] Comment on above: Performed By: #### C BCA, CMP, 79965-0, 3083-, THYR, 64616-1 #### [facility] ([id number]) [address], [address] [place] [address] Eosinophils (Bld) [#/Vol] 0.3 10*3/uL Normal 0.0-0.[address] [facility] Comment on above: Performed By: #### C BCA, CMP, 21574-7, 3083-, THYR, 58003-6 #### [facility] ([id number]) [address], [address] [place] [address] Eosinophils/100 WBC (Bld) 4.6 % Normal [facility] Comment on above: Performed By: #### C BCA, CMP, 86740-9, 3083-, THYR, 31409-8 #### [facility] ([id number]) [address], [address] [place] [address] Erythrocyte distribution width (RBC) [Ratio] 14.1 % Normal 11.5-15.[address] [facility] Comment on above: Performed By: #### C BCA, CMP, 57142-1, 4-1, THYR, 15914-2 #### [facility] ([id number]) [address], [address] [place] [address] Hematocrit (Bld) [Volume fraction] 39.1 % Normal 35-[address] [facility] Comment on above: Performed By: #### C BCA, CMP, 10902-3, 3083-, THYR, 80004-1 #### [facility] ([id number]) [address], [address] [place] [address] Hemoglobin (Bld) [Mass/Vol] 13.2 g/dL Normal 11.7-15.[address] [facility] Comment on above: Performed By: #### C BCA, CMP, 14566-1, 3083-, THYR, 83870-3 #### [facility] ([id number]) [address] [address] [place] [address] Lymphocytes (Bld) [#/Vol] 1.7 10*3/uL Normal 1.0-3.[address] [facility] Comment on above: Performed By: #### C BCA, CMP, 64052-3, 3083-, THYR, 78134-0 #### [facility] ([id number]) [address] [address] [place] [address] Lymphocytes/100 WBC (Bld) 23.3 % Normal [facility] Comment on above: Performed By: #### C BCA, CMP, 49577-1, 4-, THYR, 27097-7 #### [facility] ([id number]) [address], [address] [place] [address] MCH (RBC) [Entitic mass] 28.6 pg Normal 27-[address] [facility] Comment on above: Performed By: #### C BCA, CMP, 87673-5, 3083-, THYR, 04306-5 #### [facility] ([id number]) [address], [address] [place] [address] MCHC (RBC) [Mass/Vol] 33.8 g/dL Normal 32-36 [facility] Comment on above: Performed By: #### C BCA, CMP, , 3083-09, THYR, 03370-7 #### [facility] ([id number]) [address], [address] [place] [address] MCV (RBC) [Entitic vol] 85 fL Normal 80-[address] [facility] Comment on above: Performed By: #### C BCA, CMP, , 3083-09, THYR, 07146-4 #### [facility] ([id number]) [address], [address] [place] [address] Monocytes (Bld) [#/Vol] 0.6 10*3/uL Normal 0-0.[address] [facility] Comment on above: Performed By: #### C BCA, CMP, , 3083-09, THYR, 75821-5 #### [facility] ([id number]) [address], [address] [place] [address] Monocytes/100 WBC (Bld) 7.7 % Normal [facility] Comment on above: Performed By: #### C BCA, CMP, , 3083-09, THYR, 93178-8 #### [facility] ([id number]) [address], [address] [place] [address] Neutrophils/100 WBC (Bld) 63.5 % Normal [facility] Comment on above: Performed By: #### C BCA, CMP, 59929-6, 4-1, THYR, 15677-5 #### [facility] ([id number]) [address] [address] [place] [address] Platelet mean volume (Bld) [Entitic vol] 8.7 fL Normal 7-[address] [facility] Comment on above: Performed By: #### C BCA, CMP, 16413-5, 4-1, THYR, 85688-2 #### [facility] ([id number]) [address] [address] Platelets (Bld) [#/Vol] 366 10*3/uL Normal 150-[address] [facility] Comment on above: Performed By: #### C BCA, CMP, 00214-8, 4-1, THYR, 21018-2 #### [facility] ([id number]) [address] [address] RBC COUNT 4.63 X10E12/L Normal 3.80-5.[address] [facility] Comment on above: Performed By: #### C BCA, CMP, 82608-7, 4-1, THYR, 95140-2 #### [facility] ([id number]) [address] [address] WBC (Bld) [#/Vol] 7.2 10*3/uL Normal 4.0-11.0 [facility] Comment on above: Performed By: #### C BCA, CMP, 45258-2, 3084-1, THYR, 13730-8 #### [facility] ([id number]) [address] [address] [place] [address] CBC auto differentialon 11-03 Basophils (Bld) [#/Vol] 0.1 10*3/uL [facility] Basophils/100 WBC (Bld) 0.9 % P [facility] Eosinophils (Bld) [#/Vol] 0.3 10*3/uL [facility] Eosinophils/100 WBC (Bld) 4.6 % [facility] Erythrocyte distribution width (RBC) [Ratio] 14.1 % 11.5 - 15.0 % [facility] Hematocrit (Bld) [Volume fraction] 39.1 % 35 - 47 % [facility] Hemoglobin (Bld) [Mass/Vol] 13.2 g/dL 11.7 - 15.5 g/dL [facility] Lymphocytes (Bld) [#/Vol] 1.7 10*3/uL [facility] Lymphocytes/100 WBC (Bld) 23.3 % [facility] MCH (RBC) [Entitic mass] 28.6 pg 27 - 34 pg [facility] MCHC (RBC) [Mass/Vol] 33.8 g/dL 32 - 36 g/dL [facility] MCV (RBC) [Entitic vol] 85 fL 80 - 100 fL [facility] Monocytes (Bld) [#/Vol] 0.6 10*3/uL [facility] Monocytes/100 WBC (Bld) 7.7 % P [facility] Neutrophils (Bld) [#/Vol] 4.6 10*3/uL [facility] Neutrophils/100 WBC (Bld) 63.5 % [facility] Platelet mean volume (Bld) [Entitic vol] 8.7 fL 7 - 12 fL [facility] Platelets (Bld) [#/Vol] 366 10*3/uL [facility] RBC (Bld) [#/Vol] 4.63 10*6/uL [facility] WBC corrected for nucl RBC Auto (Bld) [#/Vol] 7.2 [facility] COMPREHENSIVE METABOLIC PANE Bijan 11-28-2023 Albumin [Mass/Vol] 3.9 g/dL Normal 3.2-5.3 [facility] Comment on above: Performed By: #### C BCA, CMP, 96263-9, 3084-1, THYR, 30386-4 #### [facility] ([id number]) [address] [facility], [address] [place] [address] ALP [Catalytic activity/Vol] 101 U/L Normal 39-[address] [facility] Comment on above: Performed By: #### C BCA, CMP, 60856-8, 4-1, THYR, 39026-2 #### [facility] ([id number]) [address], [address] [place] [address] ALT [Catalytic activity/Vol] 15 U/L Normal 0-[address] [facility] Comment on above: Performed By: #### C BCA, CMP, 86347-1, 3083-1, THYR, 31665-2 #### [facility] ([id number]) [address], [address] [place] [address] Anion gap [Moles/Vol] 10 mmol/L Normal 5-15 [facility] Comment on above: Performed By: #### C BCA, CMP, 66784-2, 3083-, THYR, 37021-1 #### [facility] ([id number]) [address], [address] [place] [address] AST [Catalytic activity/Vol] 20 U/L Normal 0-[address] [facility] Comment on above: Performed By: #### C BCA, CMP, 11710-3, 3083-, THYR, 46296-7 #### [facility] ([id number]) [address], [address] [place] [address] Bilirubin [Mass/Vol] 0.3 mg/dL Normal 0.3-1.2 [facility] Comment on above: Performed By: #### C BCA, CMP, 58452-7, 3083-, THYR, 56363-1 #### [facility] ([id number]) [address], [address] [place] [address] Calcium [Mass/Vol] 9.1 mg/dL Normal 8.5-10.5 [facility] Comment on above: Performed By: #### C BCA, CMP, 73312-2, 3083-, THYR, 04906-0 #### [facility] ([id number]) [address], [address] [place] [address] Chloride [Moles/Vol] 105 mmol/L Normal 98-109 [facility] Comment on above: Performed By: #### C BCA, CMP, 06478-5, 3083-, THYR, 70459-8 #### [facility] ([id number]) [address], [address] [place] [address] CO2 [Moles/Vol] 25 mmol/L Normal 22-[address] [facility] Comment on above: Performed By: #### C BCA, CMP, 71614-8, 3083-, THYR, 96729-0 #### [facility] ([id number]) [address], [address] [place] [address] Creatinine [Mass/Vol] 1.06 mg/dL High 0.40-1.00 [facility] Comment on above: Result Comment: METH OD TRACEABLE TO IDMS STANDARD Performed By: #### C BCA, CMP, , 3083-09, THYR, 81155-6 #### [facility] ([id number]) [address], [address] [place] [address] GFR/1.73 sq M.predicted among non-blacks MDRD (S/P/Bld) [Vol rate/Area] 56 mL/min/{1.73_m2} Low >[address] [facility] Comment on above: Result Comment: Reported eGFR is based on the CKD-EPI 2020 equation that does not use a race coefficient. Performed By: #### C BCA, CMP, 69408-3, 3083-, THYR, 86670-0 #### [facility] ([id number]) [address], [address] [place] [address] Glucose [Mass/Vol] 111 mg/dL High 65-99 [facility] Comment on above: Performed By: #### C BCA, CMP, 34299-2, 3084-1, THYR, 63876-5 #### [facility] ([id number]) [address], [address] [place] [address] Potassium [Moles/Vol] 3.7 mmol/L Normal 3.5-5.0 [facility] Comment on above: Performed By: #### C BCA, CMP, 15284-4, 4-1, THYR, 01004-6 #### [facility] ([id number]) [address], [address] [place] [address] Protein [Mass/Vol] 7.2 g/dL Normal 6.0-8.0 [facility] Comment on above: Performed By: #### C BCA, CMP, 74795-3, 3083-1, THYR, 19518-3 #### [facility] ([id number]) [address], [address] [place] [address] Sodium [Moles/Vol] 140 mmol/L Normal 134-146 [facility] Comment on above: Performed By: #### C BCA, CMP, 98198-2, 4-1, THYR, 70508-6 #### [facility] ([id number]) [address], [address] [place] [address] Urea nitrogen [Mass/Vol] 18 mg/dL Normal 5-[address] [facility] Comment on above: Performed By: #### C BCA, CMP, 24198-1, 3084-1, THYR, 98242-0 #### [facility] ([id number]) [address], [address] [place] [address] Comprehensive metabolic pane bijan 11-28-2023 Albumin [Mass/Vol] 3.9 g/dL 3.2 - 5.3 g/dL [facility] ALP [Catalytic activity/Vol] 101 U/L 39 - 130 U/L [facility] ALT No additional P-5'-P [Catalytic activity/Vol] 15 U/L 0 - 31 U/L [facility] Anion gap [Moles/Vol] 10 mmol/L 5 - 15 mmol/L [facility] AST [Catalytic activity/Vol] 20 U/L 0 - 41 U/L [facility] Bilirubin [Mass/Vol] 0.3 mg/dL 0.3 - 1 .2 mg/dL [facility] Calcium [Mass/Vol] 9.1 mg/dL 8.5 - 10. 5 mg/dL [facility] Chloride [Moles/Vol] 105 mmol/L 98 - 10 9 mmol/L [facility] CO2 [Moles/Vol] 25 mmol/L 22 - 32 mmol/L [facility] Creatinine [Mass/Vol] 1.06 mg/dL High 0.40 - 1.00 mg/dL [facility] Comment on above: METHOD TRACEABLE TO [facility] STANDARD eGFR (CKD-EPI)non-race dependent 56 Low - PINF [facility] Comment on above: Reported eGFR is based on the CKD-EPI 2020 equation that does not use a race coefficient. Glucose [Mass/Vol] 111 mg/dL High 65 - 99 mg/dL [facility] Interpretation and review of laboratory results Abnormal [facility] Potassium [Moles/Vol] 3.7 mmol/L 3.5 - 5.0 mmol/L [facility] Protein [Mass/Vol] 7.2 g/dL 6.0 - 8.0 g/dL [facility] Sodium [Moles/Vol] 140 mmol/L 134 - 146 mmol/L [facility] Urea nitrogen [Mass/Vol] 18 mg/dL 5 - 27 mg/d L [facility] ESR Photometric method (Bld) [Velocity]on 11-28-2023 Interpretation and review of laboratory results Abnormal [facility] ESR, ERYTHROCYTE SEDIMENTATION RATE 78 mm/h High 0-[address] [facility] Comment on above: Performed By: #### C BCA, CMP, 19802-5, 3084-1, THYR, 30973-6 #### [facility] ([id number]) [address], [address] [place] [address] Erythrocyte Sedimentation Ra te (ESR)on 11-28-2023 ESR Photometric method (Bld) [Velocity] 78 mm/h High 0 - 30 mm/h [facility] MAGNESIUMon 11-28-2023 Magnesium [Mass/Vol] 2.0 mg/dL Normal 1.8-2.6 [facility] Comment on above: Performed By: #### C BCA, CMP, , 3083-, THYR, 33326-9 #### [facility] ([id number]) [address] [place] [address] Magnesiumon 11-28-2023 Magnesium [Mass/Vol] 2.0 mg/dL 1.8 - 2 .6 mg/dL [facility] No Panel Informationon 11-27 [facility] THYROID PROFILEon 11-28-2023 Free T4 [Mass/Vol] 0.90 ng/dL Normal 0.61-1.60 [facility] Comment on above: Performed By: #### C BCA, CMP, , 3083-, THYR, 89153-8 #### [facility] ([id number]) [address], [address] [place] [address] TSH 2.38 uIU/mL Normal 0.49-4.[address] [facility] Comment on above: Performed By: #### C BCA, CMP, , 3083-09, THYR, 96758-1 #### [facility] ([id number]) [address] [place] [address] Thyroid profile includes TSH FT4on 11-28-2023 Free T4 [Mass/Vol] 0.90 ng/dL 0.61 - 1. 60 ng/dL [facility] TSH Qn 2.38 m[IU]/L [facility] URIC ACIDon 11-28-2023 Urate [Mass/Vol] 5.2 mg/dL Normal 2.6-7.2 [facility] Comment on above: Performed By: #### C BCA, CMP, 13044-5, 3084-1, THYR, 83414-6 #### [facility] ([id number]) [address] [facility] [place] [address] Uric acidon 11-28-2023 Urate [Mass/Vol] 5.2 mg/dL 2.6 - 7.2 mg/dL [facility] MR knee RT wo conon 10-24-19 MR knee RT wo con [facility] [address] [place] [address] MRI Report Signed Patient: Lisa Cochran MR#: [id number] 5 : 1950 Acct:[id number] Age/Sex: 73 / F ADM Date: 10/24/23 Loc: Room: Type: [facility] Attending Dr: Aldo Wynn MD Copies to: [...] Eduardo Oates M.D.10/24/2023 1:18 PM Dictation Location: [place] [address] Transcribed By: [facility] 10/24/23 1318 Dictated By: Luis Eduardo Oates DO 10/24/23 1308 Signed By: 10/24/23 1318 Normal [facility] XR knee RT 2Von 10-03-2023 XR knee RT 2V [facility] [address] [place] [address] XRay Report Signed Patient: Lisa Cochran MR#: [id number] 5 : 1950 Acct:[id number] Age/Sex: 73 / F ADM Date: 10/03/23 Loc: [facility] Room: Type: [facility] Attending Dr: Aldo Wynn MD Copies to: [...] degenerative change. Impression dictated by: Luis Eduardo Oaets M.D.10/03/2023 1:36 PM Dictation Location: [place] [address] Transcribed By: [facility] 10/03/23 1336 Dictated By: Luis Eduardo Oates DO 10/03/23 1335 Signed By: 10/03/23 1336 Normal [facility] COVID/FLU/RSV RT-PCRon 09-01 SARS-CoV-2 (COVID-19) RNA ANGEL+probe Ql (Unsp spec) Negative [facility] [employer] Other COVID/FLU/RSV RT-PCR Negative [facility] [employer] Other COMPREHENSIVE METABOLIC PANE [place] 12-14-2021 Albumin [Mass/Vol] 4.3 g/dL Normal 3.6-5.1 [facility] Comment on above: Performed By: #### 1 0231, 7600 #### [facility] [place] [address] [employer] Manager: Napoleon Anne MD Albumin/Globulin [Mass ratio] 1.6 {ratio} Normal 1.0-2.5 [facility] Comment on above: Performed By: #### 1 0231, 7600 #### [facility] [place] [address] [employer] Manager: Napoleon Anne MD ALP [Catalytic activity/Vol] 108 U/L Normal 37-153 [facility] Comment on above: Performed By: #### 1 0231, 7600 #### [facility] [place] [address] [employer] Manager: Napoleon Anne MD ALT [Catalytic activity/Vol] 10 U/L Normal 6-29 [facility] Comment on above: Performed By: #### 1 0231, 7600 #### [facility] [place] [address] [employer] Manager: Napoleon Anne MD AST [Catalytic activity/Vol] 14 U/L Normal 10-35 [facility] Comment on above: Performed By: #### 1 0231, 7600 #### [facility] [place] [address] [place] [address] [employer] Manager: Napoleon Anne MD Bilirubin [Mass/Vol] 0.5 mg/dL Normal 0.2-1.2 [facility] Comment on above: Performed By: #### 1 0231, 7600 #### [facility] [address], [address] [place] [address] [employer] Manager: Napoleon Anne MD BUN/CREATININE RATIO NOT APPLICABLE Normal 6-22 [facility] Comment on above: Performed By: #### 1 023, 7600 #### [facility] of [address], [address] [place] [address] [employer] Manager: Napoleon Anne MD Calcium [Mass/Vol] 9.5 mg/dL Normal 8.6-10.4 [facility] Comment on above: Performed By: #### 1 023, 7600 #### [facility] [address], [address] [place] [address] [employer] Manager: Napoleon Anne MD Chloride [Moles/Vol] 106 mmol/L Normal 98-110 [facility] Comment on above: Performed By: #### 1 023, 7600 #### [facility] [address], [address] [place] [address] [employer] Manager: Napoleon Anne MD CO2 [Moles/Vol] 29 mmol/L Normal 20-32 [facility] Comment on above: Performed By: #### 1 023, 7600 #### [facility] [address], [address] [place] [address] [employer] Manager: Napoleon Anne MD Creatinine [Mass/Vol] 0.86 mg/dL Normal 0.60-0.93 [facility] Comment on above: Result Comment: For patients >49 years of age, the reference limit for Creatinine is approximately 13% higher for people identified as -Faroese. Performed By: #### 1 0231, 7600 #### [facility] [address], [address] [place] [address] [employer] Manager: Napoleon Anne MD eGFR NON-AFR. BELGIAN 68 mL/min/1.73m2 Normal > OR = 60 [facility] Comment on above: Performed By: #### 1 023, 7600 #### [facility] [place] [address] [employer] Manager: Napoleon Anne MD GFR/1.73 sq M.predicted among blacks MDRD (S/P/Bld) [Vol rate/Area] 79 mL/min/{1.73_m2} Normal > OR = 60 [facility] Comment on above: Performed By: #### 1 023, 7600 #### [facility] [place] [address] [employer]: Napoleon Anne MD Globulin (S) [Mass/Vol] 2.7 g/dL Normal 1.9-3.7 [facility] Comment on above: Performed By: #### 1 230, 0 #### [facility] [place] [address] [employer]: Napoleon Anne MD Glucose [Mass/Vol] 100 mg/dL High 65-99 [facility] Comment on above: Result Comment: Fasting reference interval For someone without known diabetes, a glucose value between 100 and 125 mg/dL is consistent with prediabetes and should be confirmed with a follow-up test. Performed By: #### 1 230, 0 #### [facility] [place] [address] [employer] Manager: Napoleon Anne MD Potassium [Moles/Vol] 4.1 mmol/L Normal 3.5-5.[address] [facility] Comment on above: Performed By: #### 1 023, 7600 #### [facility] [place] [address] [employer] Manager: Napoleon Anne MD Protein [Mass/Vol] 7.0 g/dL Normal 6.1-8.1 [facility] Comment on above: Performed By: #### 1 023, 7600 #### [facility] [address] [place] [address] [employer] Manager: Napoleon Anne MD Sodium [Moles/Vol] 141 mmol/L Normal 135-146 [facility] Comment on above: Performed By: #### 1 0231, 7600 #### [facility] [address], [address] [place] [address] [employer] Manager: Napoleon Anne MD Urea nitrogen [Mass/Vol] 14 mg/dL Normal 7-25 [facility] Comment on above: Performed By: #### 1 0231, 7600 #### [facility] [address], [address] [place] [address] [employer] Manager: Napoleon Anne MD LIPID PANEL, [facility] 12-03 Cholesterol [Mass/Vol] 191 mg/dL Normal <200 [facility] Comment on above: Order Comment: FASTI NG:YES FASTING: YES Performed By: #### 1 0231, 7600 #### [facility] [place] [address] [employer] Manager: Napoleon Anne MD Cholesterol in HDL [Mass/Vol] 63 mg/dL Normal > OR = 50 [facility] Comment on above: Order Comment: FASTI NG:YES FASTING: YES Performed By: #### 1 0231, 7600 #### [facility] [place] [address] [employer]: Napoleon Anne MD Cholesterol in LDL [Mass/Vol] [...] LDL-C. Obinna DELCID et al. ALIREZA. 2013;310(19): 0620-5767 (http://education.loanDepot.[employer]/faq/VDF631) Performed By: #### 1 023, 7600 #### [facility] [address], [address] [place] [address] [employer] Manager: Napoleon Anne MD Cholesterol.total/Choles terol in HDL [Mass ratio] 3.0 {ratio} Normal <5.0 [facility] Comment on above: Order Comment: FASTI NG:YES FASTING: YES Performed By: #### 1 023, 7600 #### [facility] [address], [address] [place] [address] [employer]: Napoleon Anne MD NON HDL CHOLESTEROL 128 mg/dL (calc) Normal <130 [facility] Comment on above: Order Comment: FASTI NG:YES FASTING: YES Result Comment: For patients with diabetes plus 1 major ASCVD risk factor, treating to a non-HDL-C goal of <100 mg/dL (LDL-C of <70 mg/dL) is considered a therapeutic option. Performed By: #### 1 023, 0 #### [facility] [address], [address] [place] [address] [employer]: Napoleon Anne MD Triglyceride [Mass/Vol] 146 mg/dL Normal <150 [facility] Comment on above: Order Comment: FASTI NG:YES FASTING: YES Performed By: #### 1 023, 7600 #### [facility] [address], [address] [place] [address] [employer]dn[employer] Disposal Manager: Napoleon Anne MD BASIC METABOLIC PANELon 10-2 0-2020 BUN/CREATININE RATIO NOT APPLICABLE Normal 6-22 [facility] Comment on above: Performed By: #### 7 18, 79660, 93475, 905, 6399, 622 #### [facility] [address], [address] [place] [address] [employer]dn[employer] Disposal Manager: Napoleon Anne MD Calcium [Mass/Vol] 9.1 mg/dL Normal 8.6-10.4 [facility] Comment on above: Performed By: #### 7 18, 27365, 95479, 905, 6399, 622 #### [facility] of [address], [address] [place] [address] [employer]dn[employer] Disposal Manager: Napoleon Anne MD Chloride [Moles/Vol] 103 mmol/L Normal 98-110 [facility] Comment on above: Performed By: #### 7 18, 19129, 44593, 905, 6399, 622 #### [facility] [address], [address] [place] [address] [employer] Disposal Manager: Napoleon Anne MD CO2 [Moles/Vol] 22 mmol/L Normal 20-32 [facility] Comment on above: Performed By: #### 7 18, 60806, 76011, 905, 6399, 622 #### [facility] [place] [address] [employer] Disposal Manager: Napoleon Anne MD Creatinine [Mass/Vol] 0.93 mg/dL Normal 0.60-0.[address] [facility] Comment on above: Result Comment: For patients >49 years of age, the reference limit for Creatinine is approximately 13% higher for people identified as -Faroese. Performed By: #### 7 18, 07538, 06378, 905, 6399, 622 #### [facility] [place] [address] [employer] Disposal Manager: Napoleon Anne MD eGFR NON-AFR. BELGIAN 62 mL/min/1.73m2 Normal > OR = 60 [facility] Comment on above: Performed By: #### 7 18, 45753, 86256, 905, 6399, 622 #### [facility] [address], [address] [place] [address] [employer] Disposal Manager: Napoleon Anne MD GFR/1.73 sq M.predicted among blacks MDRD (S/P/Bld) [Vol rate/Area] 72 mL/min/{1.73_m2} Normal > OR = 60 [facility] Comment on above: Performed By: #### 7 18, 73690, 25516, 905, 6399, 622 #### [facility] [address], [address] [place], [place] [address] [employer] Disposal Manager: Napoleon Anne MD Glucose [Mass/Vol] 100 mg/dL High 65-99 [facility] Comment on above: Result Comment: Fasting reference interval For someone without known diabetes, a glucose value between 100 and 125 mg/dL is consistent with prediabetes and should be confirmed with a follow-up test. Performed By: #### 7 18, 14527, 07363, 905, 6399, 622 #### [facility] [place] [address] [employer] Dis[employer] Manager: Napoleon Anne MD Potassium [Moles/Vol] 4.0 mmol/L Normal 3.5-5.[address] [facility] Comment on above: Performed By: #### 7 18, 45345, 73465, 905, 6399, 622 #### [facility] [place] [address] [employer] Dis[employer] Manager: Napoleon Anne MD Sodium [Moles/Vol] 139 mmol/L Normal 135-146 [facility] Comment on above: Performed By: #### 7 18, 07849, 68298, 905, 6399, 622 #### [facility] [place] [address] [employer] Dis[employer] Manager: Napoleon Anne MD Urea nitrogen [Mass/Vol] 15 mg/dL Normal 7-25 [facility] Comment on above: Performed By: #### 7 18, 19759, 44647, 905, 6399, 622 #### [facility] [place] [address] [employer] Dis[employer] Manager: Napoleon Anne MD CBC (INCLUDES DIFF/PLT)on Basophils (Bld) [#/Vol] 0.043 10*3/uL Normal 0-200 [facility] Comment on above: Performed By: #### 7 18, 34181, 01615, 905, 6399, 622 #### [facility] [place] [address] [employer] Dis[employer] Manager: Napoleon Anne MD Basophils/100 WBC (Bld) 0.7 % Normal [facility] Comment on above: Performed By: #### 7 18, 25803, 30732, 905, 6399, 622 #### [facility] of [place] [address] [employer] Dis[employer] Manager: Napoleon Anne MD Eosinophils (Bld) [#/Vol] 0.061 10*3/uL Normal 15-500 [facility] Comment on above: Performed By: #### 7 18, 81943, 79181, 905, 6399, 622 #### [facility] of [place] [address] [employer] Dis[employer] Manager: Napoleon Anne MD Eosinophils/100 WBC (Bld) 1.0 % Normal [facility] Comment on above: Performed By: #### 7 18, 53968, 05881, 905, 6399, 622 #### [facility] of [place] [address] [employer] Manager: Napoleon Anne MD Erythrocyte distribution width (RBC) [Ratio] 14.7 % Normal 11.0-15.0 [facility] Comment on above: Performed By: #### 7 18, 11615, 10965, 905, 6399, 622 #### [facility] of [place] [address] [employer] Manager: Napoleon Anne MD Hematocrit (Bld) [Volume fraction] 41.5 % Normal 35.0-45.0 [facility] Comment on above: Performed By: #### 7 18, 75235, 31509, 905, 6399, 622 #### [facility] of [place] [address] [employer] Manager: Napoleon Anne MD Hemoglobin (Bld) [Mass/Vol] 13.5 g/dL Normal 11.7-15.5 [facility] Comment on above: Performed By: #### 7 18, 45886, 97363, 905, 6399, 622 #### [facility] of [address] [place] [address] [employer] Dis[employer] Manager: Napoleon Anne MD Lymphocytes (Bld) [#/Vol] 1.928 10*3/uL Normal 850-3900 [facility] Comment on above: Performed By: #### 7 18, 58389, 50935, 905, 6399, 622 #### [facility] of [place] [address] [employer] Dis[employer] Manager: Napoleon Anne MD Lymphocytes/100 WBC (Bld) 31.6 % Normal [facility] Comment on above: Performed By: #### 7 18, 68914, 66174, 905, 6399, 622 #### [facility] [place] [address] [employer] Dis[employer] Manager: Napoleon Anne MD MCH (RBC) [Entitic mass] 28.3 pg Normal 27.0-33.0 [facility] Comment on above: Performed By: #### 7 18, 46836, 32279, 905, 6399, 622 #### [facility] of [place] [address] [employer] Dis[employer] Manager: Napoleon Anne MD MCHC (RBC) [Mass/Vol] 32.5 g/dL Normal 32.0-36.[address] [facility] Comment on above: Performed By: #### 7 18, 97181, 83325, 905, 6399, 622 #### [facility] of [place] [address] [employer] Dis[employer] Manager: Napoleon Anne MD MCV (RBC) [Entitic vol] 87.0 fL Normal 80.0-100.0 [facility] Comment on above: Performed By: #### 7 18, 52311, 22094, 905, 6399, 622 #### [facility] of [place] [address] [employer] Dis[employer] Manager: Napoleon Anne MD Monocytes (Bld) [#/Vol] 0.409 10*3/uL Normal 200-950 [facility] Comment on above: Performed By: #### 7 18, 97762, 39336, 905, 6399, 622 #### [facility] of [place] [address] [employer] Dis[employer] Manager: Napoleon Anne MD Monocytes/100 WBC (Bld) 6.7 % Normal [facility] Comment on above: Performed By: #### 7 18, 74554, 13628, 905, 6399, 622 #### [facility] of [place] [address] [employer] Dis[employer] Manager: Napoleon Anne MD Neutrophils (Bld) [#/Vol] 3.66 10*3/uL Normal 0960-2005 [facility] Comment on above: Performed By: #### 7 18, 60982, 38673, 905, 6399, 622 #### [facility] of [place] [address] [employer] Dis[employer] Manager: Napoleon Anne MD Neutrophils/100 WBC (Bld) 60 % Normal [facility] Comment on above: Performed By: #### 7 18, 92165, 41750, 905, 6399, 622 #### [facility] of [place] [address] [employer] Dis[employer] Manager: Napoleon Anne MD Platelet mean volume (Bld) [Entitic vol] 10.5 fL Normal 7.5-12.5 [facility] Comment on above: Performed By: #### 7 18, 94543, 67594, 905, 6399, 622 #### [facility] of [place] [address] [employer] Dis[employer] Manager: Napoleon Anne MD Platelets (Bld) [#/Vol] 307 10*3/uL Normal 140-400 [facility] Comment on above: Performed By: #### 7 18, 69940, 66299, 905, 6399, 622 #### [facility] of [place] [address] [employer] Dis[employer] Manager: Napoleon Anne MD RBC (Bld) [#/Vol] 4.77 10*6/uL Normal 3.80-5.10 [facility] Comment on above: Performed By: #### 7 18, 74637, 73458, 905, 6399, 622 #### [facility] [address], [address] [place] [address] [employer] Dis[employer] Manager: Napoleon Anne MD WBC (Bld) [#/Vol] 6.1 10*3/uL Normal 3.8-10.8 [facility] Comment on above: Performed By: #### 7 18, 77653, 31009, 905, 6399, 622 #### [facility] [address], [address] [place] [address] [employer] Dis[employer] Manager: Napoleon Anne MD MAGNESIUMon 06-23-2021 Magnesium [Mass/Vol] 2.0 mg/dL Normal 1.5-2.5 [facility] Comment on above: Order Comment: FASTI NG:UNKNOWN FASTING: UNKNOWN Performed By: #### 7 18, 09591, 44061, 905, 6399, 622 #### [facility] [address], [address] [place] [address] [employer] Disposal Manager: Naploeon Anne MD PHOSPHATE ( PHOSPHORUS)on 06-23-2021 Phosphate [Mass/Vol] 3.8 mg/dL Normal 2.1-4.3 [facility] Comment on above: Performed By: #### 7 18, 13163, 13326, 905, 6399, 622 #### [facility] [place] [address] [employer] Disposal Manager: Napoleon Anne MD PTH, INTACT WITHOUT CALCIUMo [...] Normal High Performed By: #### 7 18, 36960, 21860, 905, 6399, 622 #### [facility] [place] [address] [facility], [address] [place], [place] [address] [employer] Dis[employer] Manager: Napoleon Anne MD URIC ACIDon 06-23-2021 Urate [Mass/Vol] 4.8 mg/dL Normal 2.5-7.0 [facility] Comment on above: Result Comment: Ther apeutic target for gout patients: <6.0 mg/dL Performed By: #### 7 18, 48502, 67280, 905, 6399, 622 #### [facility] [place] [address] [facility], [address] [place], [place] [id number] [employer] Disposal Manager: Napoleon Anne MD VITAMIN D,25-OH,TOTAL,IAon 1 VITAMIN [...] D, (D2,D3), LC/MS/MS is recommended: order code 59726 (patients >2yrs). See Note 1 Note 1 For additional information, please refer to http://education.[employer]Depot.[employer]/faq/ZEI810 (This link is being provided for informational/ educational purposes only.) Performed By: #### 7 18, 51087, 48277, 905, 6399, 622 #### [facility] [address], [address] [place] [phone] [employer] Dis[employer] Manager: Napoleon Anne MD Vital Signs Date Time Vital Sign Value Performing Clinician Facility 11-28-2023 09:01-0400 Body height 157.5 cm Kate Thornton ACCOUNT DEVELOPMENT SPECIALIST-PILE DRIVING SETTER Work Phone: [facility] 11-28-2023 09:01-0400 Body mass index (BMI) [Ratio] 37.86 kg/m2 Kate PETERSONPILE DRIVING SETTER Work Phone: [facility] 11-28-2023 09:01-0400 Body temperature 98.01 [degF] Kate Thornton APRN-PILE DRIVING SETTER Work Phone: [facility] 11-28-2023 09:01-0400 Body weight 93.89 kg Kate PETERSONPILE DRIVING SETTER Work Phone: [facility] 11-28-2023 09:01-0400 Diastolic blood pressure 70 mm[Hg] Kate Thornton APRN-PILE DRIVING SETTER Work Phone: [facility] 11-28-2023 09:01-0400 Heart rate 119 /min Kate PETERSONPILE DRIVING SETTER Work Phone: [facility] 11-28-2023 09:01-0400 Respiratory rate 18 /min Kate PETERSONPILE DRIVING SETTER Work Phone: [facility] 11-28-2023 09:01-0400 SaO2% (BldA) [Mass fraction] 95 % Kate PETERSONPILE DRIVING SETTER Work Phone: [facility] 11-28-2023 09:01-0400 Systolic blood pressure 90 mm[Hg] Kate PETERSONPILE DRIVING SETTER Work Phone: [facility] 11-07-2023 09:42-0500 Body height 157.48 cm [facility] 11-07-2023 09:42-0500 Body mass index (BMI) [Ratio] 37.5 kg/m2 [facility] 11-07-2023 09:42-0500 Body weight 92.98 kg [facility] 10-24-2023 11:23-0500 Diastolic blood pressure 97 mm[Hg] [facility] 10-24-2023 11:23-0500 Heart rate 107 /min [facility] 10-24-2023 11:23-0500 Respiratory rate 18 /min [facility] 10-24-2023 11:23-0500 SaO2% (BldA) [Mass fraction] 94 % [facility] 10-24-2023 11:23-0500 Systolic blood pressure 144 mm[Hg] [facility] 10-24-2023 11:19-0500 Body height 154.94 cm [facility] 10-24-2023 11:19-0500 Body weight 94.34 kg [facility] 10-03-2023 09:45-0500 Body height 154.94 cm Aldo Olexa Other [facility] 10-03-2023 09:45-0500 Body mass index (BMI) [Ratio] 39.3 kg/m2 Aldo Olexa Other [facility] Other 10-03-2023 09:45-0500 Body weight 94.35 kg Aldo Olexa Other [facility] Other 10-03-2023 09:45-0500 Body weight 94.34 kg [facility] 09-01-2022 12:45-0500 Body height 154.94 cm Tanna Paige Other [facility] Other 09-01-2022 12:45-0500 Body mass index (BMI) [Ratio] 40.24 kg/m2 Tanna Paige Other [facility] Other 09-01-2022 12:45-0500 Body weight 96.62 kg Tanna Paige Other [facility] Other 09-01-2022 12:45-0500 Diastolic blood pressure 75 mm[Hg] Tanna Paige Other [facility] Other 09-01-2022 12:45-0500 Respiratory rate 18 /min Tanna Paige Other [facility] Other 09-01-2022 12:45-0500 SaO2% (BldA) [Mass fraction] 96 % Tanna Paige Other [facility] Other 09-01-2022 12:45-0500 Systolic blood pressure 114 mm[Hg] Tanna Paige Other [facility] Other 09-28-2021 11:15-0500 Body height 154.94 cm Aldo Olexa Other [facility] Other 09-28-2021 11:15-0500 Body mass index (BMI) [Ratio] 41.75 kg/m2 Aldo Olexa Other [facility] Other 09-28-2021 11:15-0500 Body weight 100.25 kg Aldo Olexa Other [facility] Other 08-19-2021 10:30-0500 Body height 154.94 cm Aldo Olexa Other [facility] Other 08-19-2021 10:30-0500 Body mass index (BMI) [Ratio] 41.56 kg/m2 Aldo Olexa Other [facility] Other 08-19-2021 10:30-0500 Body weight 99.79 kg Aldo Olexa Other [facility] Other Encounters Encounter Date Encounter Type Care Provider Facility Start: 02-01-2024 End: 02-02-2024 ambulatory [facility] Sydni [facility] Start: 02-01-2024 End: 02-01-2024 ambulatory [facility] Start: 01-23-2024 End: 01-23-2024 Patient encounter procedure [facility] [address] Work Phone: Start: 01-23-2024 End: 01-23-2024 ambulatory NON STAFF [facility] Work Phone: Start: 12-07-2023 Orders Only Kate Thornton ACCOUNT DEVELOPMENT SPECIALIST-PILE DRIVING SETTER Work Phone: [facility] Comment on above: Erosive (osteo)arthr itis (Primary Dx) Start: 12-04-2023 End: 12-05-2023 ambulatory KATE THORNTON [facility] Start: 11-28-2023 End: 11-29-2023 Orders Only Kate Thornton ACCOUNT DEVELOPMENT SPECIALIST-PILE DRIVING SETTER [facility] Comment on above: Swelling of multiple joints (Primary Dx) Start: 11-28-2023 End: 11-28-2023 Office outpatient visit 25 minutes Kate Thornton ACCOUNT DEVELOPMENT SPECIALIST-PILE DRIVING SETTER Work Phone: [facility] Comment on above: Swelling of multiple joints (Primary Dx); Stage 3a chronic kidney disease (CMS-HCC); Palpitations Start: 11-21-2023 Refill Kate Thornton ACCOUNT DEVELOPMENT SPECIALIST-PILE DRIVING SETTER Work Phone: [facility] Comment on above: Mixed hyperlipidemia Start: 11-07-2023 End: 11-07-2023 Patient encounter procedure [facility] Work Phone: Start: 10-24-2023 End: 10-24-2023 Patient encounter procedure [facility] [address] Work Phone: Start: 10-24-2023 End: 10-24-2023 ambulatory NON STAFF [facility] Work Phone: Start: 10-03-2023 Office outpatient vi sit 25 minutes Aldo Wynn [facility] Start: 10-03-2023 End: 10-03-2023 Patient encounter procedure [facility] Start: 10-03-2023 End: 10-03-2023 ambulatory NON STAFF [facility] Other Start: 10-03-2023 End: 10-03-2023 Patient encounter procedure [facility]- Start: 08-07-2023 End: 08-07-2023 ambulatory JOSEFINA MELISSA Not Available Start: 09-01-2022 End: 09-01-2022 ambulatory Tanna Paige Other [facility] Other Start: 09-01-2022 Office outpatient vi sit 15 minutes Tanna Grecia [facility] Start: 09-28-2021 End: 09-28-2021 ambulatory Aldo Olexa Other [facility] Other Start: 09-28-2021 Office outpatient vi sit 15 minutes Aldo Olexa [facility] Start: 08-19-2021 End: 08-19-2021 ambulatory Aldo Olexa Other [facility] Other Start: 08-19-2021 Office outpatient ne w 30 minutes Aldo Olexa [facility] Start: 10-29-2020 End: 10-30-2020 Patient encounter procedure NONE LISTED REQUEST Facility: Procedures Date Procedure Procedure Detail Performing Clinician Start: 02-01-2024 Follow-up visit Follow-up KATE LOR LENNON JENNA Start: 11-28-2023 Ecg routine ecg w/le ast 12 lds w/i&r Kate Thornton ACCOUNT DEVELOPMENT SPECIALIST-PILE DRIVING SETTER Work Phone: Start: 11-28-2023 Adult depression scr eening assessment Kate Thornton ACCOUNT DEVELOPMENT SPECIALIST-PILE DRIVING SETTER Work Phone: Start: 10-24-2023 MRI of right knee Start: 10-03-2023 X-ray of right knee Start: 05-12-2023 Mammography Kate Thornton ACCOUNT DEVELOPMENT SPECIALIST-PILE DRIVING SETTER Work Phone: Start: 03-20-2023 Adult depression scr eening assessment Kate Thornton ACCOUNT DEVELOPMENT SPECIALIST-PILE DRIVING SETTER Work Phone: Plan of Treatment Date Care Activity Detail Author Start: 05-12-2025 Screening for malign ant neoplasm of breast [facility] Start: 11-27-2024 Adult BMI Screening Adult [facility] Start: 11-27-2024 Depression Screening [facility] Start: 11-27-2024 Fall Risk Screening Fall [facility] Start: 11-27-2024 Tobacco Screening [facility] Start: 06-02-2024 Adult BMI Screening Adult BMI Screen [facility] Start: 06-02-2024 Tobacco Screening [facility] Start: 03-20-2024 Depression Screening [facility] Start: 03-20-2024 Medicare Annual Well ness Visit Medicare [facility] Wellness [facility] Start: 03-18-2024 Fall Risk Screening Fall [facility] Start: 01-23-2024 [facility] Start: 11-28-2023 End: 11-27-2024 XR Hand - right 3 Views X-ray hand right minimum 3 views Imaging Routine Swelling of multiple joints Expected: 11/28/2023, Expires: 11/27/2024 [employer] Work Phone: Comment on above: Expected: 11/28/2023 , Expires: 11/27/2024 Start: 01-24-2013 DTaP,Tdap and Td Vac cines (1 - Tdap) DTaP,Tdap and Td Vaccines (1 - Tdap) [facility] Start: 2001 Administration of varicella zoster vaccine Zoster (Shingles) Vaccine (1 of 2) [facility] Start: 1969 Adult BMI Follow Up Plan Adult BMI [facility] Up Plan [facility] POCT EKG POCT EKG ECG Rou ivone Palpitations 11/28/2023 10:12 AM EDT [employer] Work Phone: Immunizations Immunization Date Immunization Notes Care Provider Anel newsome 07-21-2022 Covid-19, Mrna, Lnp- s, Bivalent, Pf, 50mcg/0.5ml or 25mcg/0.25ml Kate Thornton ACCOUNT DEVELOPMENT SPECIALIST-PILE DRIVING SETTER Work Phone: [facility] 07-21-2022 SARS-COV-2 (COVID-19 ) Vaccine, Unspecified Kate Thornton ACCOUNT DEVELOPMENT SPECIALIST-PILE DRIVING SETTER Work Phone: [facility] 06-29-2021 Influenza Vaccine, Quadrivalent, Adjuvanted Kate Thornton ACCOUNT DEVELOPMENT SPECIALIST-PILE DRIVING SETTER Work Phone: [facility] 11-03-2020 COVID-19, mRNA, LNP- S, PF, 30mcg/0.3mL Dose Kate Thornton ACCOUNT DEVELOPMENT SPECIALIST-PILE DRIVING SETTER Work Phone: [facility] 10-29-2020 COVID-19, mRNA, LNP- S, PF, 100mcg/0.5mL Dose Kate Thornton ACCOUNT DEVELOPMENT SPECIALIST-PILE DRIVING SETTER Work Phone: [facility] 06-02-2020 Influenza Vaccine, Quadrivalent, Adjuvanted Kate Thornton ACCOUNT DEVELOPMENT SPECIALIST-PILE DRIVING SETTER Work Phone: [facility] 07-18-2018 Influenza, injectabl e, Madin Lili Canine Kidney, preservative free, quadrivalent Kate Thornton ACCOUNT DEVELOPMENT SPECIALIST-PILE DRIVING SETTER Work Phone: [facility] 07-18-2018 pneumococcal polysaccharide vaccine, 23 valent Kate Thornton ACCOUNT DEVELOPMENT SPECIALIST-PILE DRIVING SETTER Work Phone: [facility] 02-13-2017 pneumococcal conjuga te vaccine, 13 valent Kate Thornton ACCOUNT DEVELOPMENT SPECIALIST-PILE DRIVING SETTER Work Phone: [facility] 01-23-2013 TD(adult) unspecifie d formulation Kate Thornton ACCOUNT DEVELOPMENT SPECIALIST-PILE DRIVING SETTER Work Phone: [facility] Payers Date Payer Category Payer Medicare [id number] 2022 Medicare AETNA MEDICARE A ETNA MEDICARE PLAN (PPO) [id number] 2022-[facility] [phone] [address] [place] [address] [id number] 1959 Self-pay 1950 Unknown [id number] 259 1950 Unknown [id number] 259 1950 Unknown [id number] [id number] 286 1950 Unknown [id number] [id number] 286 1950 Unknown [id number] [id number] 286 1950 Unknown [id number] [id number] 286 1950 Unknown [id number] [id number] 286 Private Health Insurance EB [id number] Unknown [id number] [id number] 93 Unknown [id number] [id number] 31 Unknown [id number] [id number] 31 Unknown [id number] 31 Social History Date Type Detail Facility Start: 10-15-2020 End: 06-02-2023 Sex Assigned At [facility] Start: 08-17-2021 End: 10-03-2023 Tobacco smoking status NHIS Never smoked tobacco (finding) [facility] Start: 1950 Sex Assigned At Female [facility] Start: 09-20-2019 End: 11-28-2023 Tobacco use and exposure Smokeless tobacco non-user [facility] Start: 06-02-2023 End: 11-28-2023 Alcohol intake Current drinker of alcohol (finding) [facility] Start: 10-15-2020 End: 06-02-2023 History of Social function [facility] Adolescent depressio n screening assessment 0 [facility] Start: 09-20-2019 Alcohol Comment Social/occasional Pr [facility] Start: 1950 Sex Assigned At Not on file P [facility] Clinical Notes 12-04-2014 to 11-28-2023 Kate Thornton, ACCOUNT DEVELOPMENT SPECIALIST-PILE DRIVING SETTER - 11/28/2023 9:00 AM EDT Note Date [...] acid; Future Stage 3a chronic kidney disease ([facility]-HCC) - Comprehensive metabolic panel; Future - [...] Gomez 11/28/23 1217 documented in this encounter [facility] 11-28-2023 Evaluation note Diagnosis Swelling of multiple joints- Primary Stage 3a chronic kidney disease ([facility]-HCC) Palpitations documented in this encounter [facility]01-30-2024 Evaluation note* Encounter Date Diagnosis Assessment Notes [...] pain of right knee (ICD-10 - M25.561) [facility] Other 12-29-2022 Evaluation note* Encounter Date Diagnosis [...] care provider if no improvement of symptoms. [employer] Other 01-25-2022 Evaluation note* Encounter Date Diagnosis [...] derangement of left knee (ICD-10 - M23.92) [facility] Other 12-16-2021 Evaluation note* Encounter Date Diagnosis [...] derangement of left knee (ICD-10 - M23.92) [facility] Other 04-02-2015 History general Narrative - Reported* Type Description Date Medical History HTN Medical History Hyperlipidemia Medical History Basal Cell carcinoma of scalp Surgical History basal cell carcinoma of scalp ( Dr Llanos) 12/04/14 [facility] Other Evaluation noteNo assessment information available [facility] Work Phone: Evaluation note* Diagnosis Mixed hyperlipidemia documented in this encounter [facility]* Diagnosis Swelling of multiple joints- Primary documented in this encounter [facility] System[facility] note* Diagnosis Erosive (osteo)arthritis- Primary documented in this encounter [facility]* Diagnosis Erosive (osteo)arthritis- Primary documented in this encounter [facility]* Diagnosis Onset Date Resolution Status Acute medial meniscus tear of right knee acute Arthritis of right knee acut e [facility] Work Phone: InstructionsNot on filedocumented in this encounter [facility] filedocumented in this encounter [facility]Not on filedocumented in this encounter [facility] filedocumented in this encounter [facility] SystemInstructionsNot on filedocumented in this encounter [facility] SystemReason for referral (narrative)* Consultation (Routine) - Pending Review Specialty Diagnoses / Procedures Referred By Contjaden t Referred To Contact Rheumatology Diagnoses Erosive (osteo)arthritis Kate Thornton, CARLOS ALBERTO-FAUSTINA [address] [place] [address] Dax Coello MD [address] [place] [address] Referral ID Status Reason Start Date Expiration Date Visits Requested Visits Authorized [id number] Pending Review Specialty Services Required 12/07/2023 12/06/2024 1 1 [facility] Summary Purpose Family History No Family [...] and Reason for Visit Chief Complaint Op Eyeglass Frame Truer Rt Knee Pain N x M25.561 M17.11 Chief Complaint MRI RESULTS r31.29 Reason for Visit Acute medial meniscu s tear of right knee Arthritis of right knee Additional Source Comments INFORMATION SOURCE (unrecogn ized section and content) DATE CREATED AUTHOR 10/27/2020 [facility] DATE CREATED AUTHOR AUTHOR'S ORGANIZ ATION 12/15/2021 [facility] DATE CREATED AUTHOR AUTHOR'S ORGANIZ ATION 08/08/2023 [facility] EPIC DATE CREATED AUTHOR AUTHOR'S ORGANIZ ATION 12/05/2023 [facility] DATE CREATED AUTHOR AUTHOR'S ORGANIZ ATION 02/02/2024 [facility] DATE CREATED AUTHOR AUTHOR'S ORGANIZ ATION 02/02/[address] [facility] DATE CREATED AUTHOR AUTHOR'S ORGANIZ ATION 02/06/2024 [facility] REASON FOR VISIT (unrecogniz ed [...] October 24, 2023 End: October 24, 2023 Lawn Service Manager Relationship Specialty Start Date End Date Kate Thornton ACCOUNT DEVELOPMENT SPECIALIST-PILE DRIVING SETTER [address] [facility] [place] [address] PCP - General Family Medicine 08/01/18 Lawn Service Manager Relationship Specialty Start Date End Date Kate Thornton ACCOUNT DEVELOPMENT SPECIALIST-PILE DRIVING SETTER [address] [place] [address] PCP - General Family Medicine 08/01/18 Lawn Service Manager Relationship Specialty Start Date End Date Kate Thornton ACCOUNT DEVELOPMENT SPECIALIST-PILE DRIVING SETTER [address] [place] [address] PCP - General Family Medicine 08/01/18 Team [...] BE BASED ON THE PRIMARY CLINICAL RECORDS. [facility]. provides no warranty or guarantee of the accuracy or completeness of information in this document.
[2024-06-18 09:32] LABS: Basophils Absolute Auto 0.1 10^3/uL (0.0-0.1); Basophils Percent Auto 0.8 % (0.2-2.0); Eosinophils Absolute Auto 0.1 10^3/uL (0.0-0.7); Eosinophils Percent Auto 1.5 % (0.9-7.0); Hematocrit 41.8 % (36.0-48.0); Hemoglobin 13.4 g/dL (12.0-16.0); Immature Granulocytes Abs Auto 0.01 10^3/uL (0.00-0.03); Immature Granulocytes Pct Auto 0.2 % (0.0-0.5); Lymphocytes Absolute Auto 1.3 10^3/uL (1.2-3.8); Lymphocytes Percent Auto 21.3 % (20.5-60.0); Mean Corpuscular HGB Conc 32.1 g/dL (29.9-35.2); Mean Corpuscular Hemoglobin 28.9 pg (26.7-34.0); Mean Corpuscular Volume 90.1 fL (81.0-99.0); Mean Platelet Volume 10.3 fL (9.5-13.5); Monocytes Absolute Auto 0.5 10^3/uL (0.3-0.8); Monocytes Percent Auto 7.6 % (1.7-12.0); Neutrophils Absolute Auto 4.2 10^3/uL (1.4-6.5); Neutrophils Percent Auto 68.6 % (43.0-75.0); Platelet Count 276 10^3/uL (150-450); Red Blood Count 4.64 10^6/uL (4.20-5.40); Red Cell Distribution Width 13.7 % (11.0-15.0); White Blood Count 6.2 10^3/uL (4.0-11.0)
[2024-06-18 09:40] LABS: Erythrocyte Sedimentation Rate 52 mm/hr (<=30)
[2024-06-18 11:20] LABS: Alanine Aminotransferase 25 U/L (14-59); Albumin Globulin Ratio 0.8; Albumin Level 2.9 g/dL (3.4-5.0); Alkaline Phosphatase 118 U/L (46-116); Anion Gap 13.2; Aspartate Amino Transferase 19 U/L (15-37); BUN Creatinine Ratio 12.7; Bilirubin Total 0.5 mg/dL (0.2-1.0); Calcium 8.7 mg/dL (8.5-10.1); Carbon Dioxide 26.7 mmol/L (21.0-32.0); Chloride 108 mmol/L (98-107); Estimated GFR (African America 59 (>=60 mL/min/1.73m^2); Estimated GFR (Non-African Ame 49 (>=60 mL/min/1.73m^2); Globulin 3.8 g/dL; Glucose 107 mg/dL (74-106); Potassium 3.9 mmol/L (3.5-5.1); Sodium 144 mmol/L (136-145); Total Protein 6.7 g/dL (6.4-8.2)
== END 2024-06-18 08:54 | disposition home or self-care (01) ==
LOC: LAB 08:55
PROVIDERS: PCP Family Medicine; Visit Provider Internal Medicine Rheumatology
DX: M06.9 Rheumatoid arthritis, unspecified (principal); M19.90 Unspecified osteoarthritis, unspecified site; Z51.81 Encounter for therapeutic drug level monitoring; Z79.899 Other long term (current) drug therapy
CPT/HCPCS: 36415; 80053; 85025; 85652

== ENCOUNTER 2024-07-31 10:03 | Outpatient (OUT) | payer MEDICARE, SELFPAY ==
[2024-07-31 10:27] LABS: Basophils Absolute Auto 0.1 10^3/uL (0.0-0.1); Basophils Percent Auto 1.1 % (0.2-2.0); Eosinophils Absolute Auto 0.2 10^3/uL (0.0-0.7); Eosinophils Percent Auto 2.7 % (0.9-7.0); Immature Granulocytes Abs Auto 0.01 10^3/uL (0.00-0.03); Immature Granulocytes Pct Auto 0.2 % (0.0-0.5); Lymphocytes Absolute Auto 1.9 10^3/uL (1.2-3.8); Lymphocytes Percent Auto 29.2 % (20.5-60.0); Mean Corpuscular HGB Conc 31.7 g/dL (29.9-35.2); Mean Corpuscular Hemoglobin 28.4 pg (26.7-34.0); Mean Corpuscular Volume 89.7 fL (81.0-99.0); Mean Platelet Volume 10.2 fL (9.5-13.5); Monocytes Absolute Auto 0.6 10^3/uL (0.3-0.8); Monocytes Percent Auto 9.2 % (1.7-12.0); Neutrophils Absolute Auto 3.7 10^3/uL (1.4-6.5); Neutrophils Percent Auto 57.6 % (43.0-75.0); Platelet Count 317 10^3/uL (150-450); Red Blood Count 4.57 10^6/uL (4.20-5.40); Red Cell Distribution Width 13.3 % (11.0-15.0); White Blood Count 6.4 10^3/uL (4.0-11.0)
[2024-07-31 11:06] LABS: Alanine Aminotransferase 17 U/L (14-59); Albumin Globulin Ratio 0.7; Albumin Level 2.7 g/dL (3.4-5.0); Alkaline Phosphatase 124 U/L (46-116); Anion Gap 13.6; Aspartate Amino Transferase 16 U/L (15-37); BUN Creatinine Ratio 10.8; Bilirubin Total 0.5 mg/dL (0.2-1.0); Calcium 8.7 mg/dL (8.5-10.1); Carbon Dioxide 24.9 mmol/L (21.0-32.0); Chloride 107 mmol/L (98-107); Estimated GFR (African America 58 (>=60 mL/min/1.73m^2); Estimated GFR (Non-African Ame 48 (>=60 mL/min/1.73m^2); Globulin 4.1 g/dL; Glucose 112 mg/dL (74-106); Potassium 3.5 mmol/L (3.5-5.1); Sodium 142 mmol/L (136-145); Total Protein 6.8 g/dL (6.4-8.2)
[2024-07-31 11:32] LABS: Erythrocyte Sedimentation Rate 68 mm/hr (<=30)
== END 2024-07-31 10:04 | disposition home or self-care (01) ==
LOC: LAB 10:05
PROVIDERS: PCP Family Medicine; Visit Provider Internal Medicine Rheumatology
DX: M06.9 Rheumatoid arthritis, unspecified (principal); M19.90 Unspecified osteoarthritis, unspecified site; Z51.81 Encounter for therapeutic drug level monitoring
CPT/HCPCS: 36415; 80053; 85025; 85652

== ENCOUNTER 2024-09-02 10:33 | Outpatient (OUT) | payer MEDICARE, SELFPAY ==
--- OUTSIDE RECORDS SUMMARY | 2024-09-02 10:52 | XMS_ITS | CCD ---
Author Organization [facility] Care Team Providers Care Row Boss Hoeing Name Role Phone REQUEST, NONE LISTED Attending Unavailable REQUEST, NONE LISTED Consulting Unavailable REQUEST, NONE LISTED Admitting Unavailable SHANS, KATE R Primary Care Unavailable Aldo Wynn Unavailable Tanna Paige Unavailable JOSEFINA MELISSA Attending Unavailable NON STAFF Primary Care Provider MD Aldo Rodriguez Attending Provider [phone] Jenna DIRECTOR IT PROJECT-MILK WAGON DRIVERKate Primary Care Provider KATE THORNTON Referring Unavailable KUNS, ZAYRA Primary Care Unavailable NON STAFF Primary Care Provider UnavailMD Dax Elizabeth Attending Provider KATE THORNTON Attending Unavailable JENNA, ZAYRA Referring Unavailable KUNS, ZAYRA Primary Care Unavailable KATE THORNTON Attending Unavailable SHANS, ZAYRA Referring Unavailable KUNS, ZAYRA Primary Care Unavailable [...] Admitting Unavailable NON STAFF Primary Care Unavailable Unavailable Primary Care Provider Unavaillitzy arenas Allergies Allergy Classification Reported Allergen(s) Allergy Type Date of Onset Reaction(s) Facility (4 sources) Amino Acids; Translations: [LISINOPRIL] Drug Allergy 09-20-2019 [facility] Repository (11 sources) Lisinopril Drug Allergy 09-20-2019 [facility] ([facility] source) Lisinopril Drug Allergy 11-07-2023 [facility] Repository Medications Current Medications Medication Drug Class(es) Dates Sig (Normalized) Sig (Original) ALPRAZolam 0.25 mg oral tablet (11 sources) Benzodiazepine Start: 02-01-2024 take 1 tablet by mouth twice daily as needed for anxiety ALPRAZolam (XANAX) 0.25 mg tablet Indications: Situational anxiety Take 1 tablet (0.25 mg total) by mouth 2 (two) times a day as needed for anxiety. 30 tablet 1 02/01/2024 Active Start: 07-18-2022 take 1 tablet by mele th twice daily as needed for anxiety ALPRAZolam (XANAX) 0.25 mg tablet Indications: Situational anxiety Take 1 tablet (0.25 mg total) by mouth 2 (two) times a day as needed for anxiety. 30 tablet 0 07/18/2022 Active take 1 tablet by mele th every eight hours Xanax 0.25 MG 1 tablet Orally Three times a day Active amLODIPine 10 mg oral tablet (14 sources) Dihydropyridine Calcium Channel Ariana Start: 02-07-2024 End: 08-13-2024 take 1 tablet by mouth once daily in the morning amLODIPine (NORVASC) 10 mg tablet Take 1 tablet (10 mg total) by mouth every morning. 90 tablet 1 08/13/2024 Active Start: 05-11-2023 End: 11-21-2023 take 1 tablet [...] aspirin 81 mg delayed release oral tablet (8 sources) Platelet Aggregation Inhibitor, Nonsteroidal Anti-inflammatory Drug Start: 11-07-19 take 1 tablet by mouth once daily Aspirin Active 81 MG PO Daily November 07, 2023 1:00am FreeTextSi tablet Orally Once a day; Note: Source Status: Taking; Provider: Tianna Carlson ( ) cholecalciferol 0.025 mg oral capsule (7 sources) Vitamin D cholecalciferol, vitamin D3, 25 mcg (1,000 unit) capsule daily. Active FLUoxetine 20 mg oral capsule (14 sources) Serotonin Reuptake Inhibitor Start: 02-07-20 End: 08-13-20 take 1 capsule by mouth in the morning FLUoxetine (PROzac) 20 mg capsule Take 1 capsule (20 mg total) by mouth in the morning. 90 capsule 08/13/2024 Active Start: 11-07-2023 take 1 capsule by mo ut once daily in the morning Fluoxetine Active [...] 0 11/21/2023 Active take 1 capsule by mo [facility] every twenty-four hours FLUoxetine HCl 10 MG 1 capsule in the morning Orally Once a day Active take 1 capsule by mo ut once daily in the morning FLUoxetine HCl 10 MG 1 capsule in the morning Orally Once a day Active hlrlaqsntvov-lofw-bdegq acid (CENTRUM) 18-400 mg-mcg tablet (6 sources) take 1 tablet by mouth in the morning jivnxfygoqop-esgo-aaark acid (CENTRUM) 18-400 mg-mcg tablet Take 1 tablet by mouth in the morning. Active take 1 tablet by mele th in the morning zlxbtlpvcebz-mwlw-rzkes acid (CENTRUM) 1 8-400 mg-mcg tablet Take 1 tablet by mouth in the morning. 0 Active omeprazole 20 mg delayed release oral capsule (11 sources) Proton Pump Inhibitor take 1 capsule by mouth in the morning omeprazole (PriLOSEC) 20 mg capsule Take 1 capsule (20 mg total) by mouth in the morning. Active predniSONE 5 mg oral tablet (4 sources) Start: 01-23-2024 take 2 tablets by mouth once daily predniSONE (DELTASONE) 5 mg tablet TAKE 2 TABLETS BY MOUTH DAILY 01/23/2024 Active Start: 12-07-2023 End: 12-17-2023 take 1 tablet by mouth in the morning predniSONE (DELTASONE) 10 mg tablet Take 1 tablet (10 mg total) by mouth in the morning for 10 days. 10 tablet 0 12/07/2023 12/17/2023 Active rosuvastatin calcium 20 mg oral tablet (14 sources) HMG-CoA Reductase Inhibitor Start: 02-07-2024 End: 08-13-2024 take 1 tablet by mouth in the morning rosuvastatin (CRESTOR) 20 mg tablet Indications: Mixed hyperlipidemia Take 1 tablet (20 mg total) by mouth in the morning. 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] Onset: 10-02-2019 10-02-2019 Chronic Cardiac dysrhythmias (3 sources) Palpitations; Translations: [Palpitations] Onset: 11-28-2023 11-28-2023 Episodic Chronic kidney disease (8 sources) Chronic kidney disease stage 3A ; Translations: [Stage 3a chronic kidney disease] Onset: 04-02-2020 07-18-2022 Chronic Chronic kidney disease (2 sources) Chronic kidney disease; Translations: [Chronic kidney disease, stage 3a] Onset: 07-18-2022 Disorders of lipid metabolism (11 sources) Mixed hyperlipidemia; Translations: [Mixed hyperlipidemia] Onset: 02-11-2016 11-21-2023 Chronic Diverticulosis and diverticulitis (7 sources) Diverticulosis of large intestine; Translations: [Diverticulosis of large intestine without perforation or abscess without bleeding] Onset: 10-02-2019 10-02-2019 Chronic Essential hypertension (9 sources) Essential hypertension; Translations: [Essential (primary) hypertension] Onset: 02-11-2016 07-06-2022 Chronic Hypertension with complications and secondary hypertension (7 sources) Chronic kidney disease due to hypertension; [...] knee, initial encounter] 11-03-2023 Episodic Mood disorders (7 sources) Depressive disorder; Translations: [Depressive disorder] Onset: 02-11-2016 07-06-2022 Chronic Nutritional deficiencies (7 sources) Vitamin D deficiency; Translations: [Vitamin D deficiency, unspecified] Onset: 06-23-2021 07-18-2022 Chronic Osteoarthritis (17 sources) Arthritis of left knee; Translations: [Unilateral primary osteoarthritis, left knee] Onset: 08-19-2021 Resolved: 09-28-2021 Chronic Other gastrointestinal disorders (7 sources) Irritable bowel syndrome; Translations: [Irritable bowel [...] Da te Episodic/Chronic Diabetes mellitus without complication (7 sources) Impaired fasting glycemia; Translations: [Impaired fasting glucose] Onset: 02-12-2016 07-06-2022 Episodic Gastrointestinal hemorrhage (7 sources) Rectal hemorrhage; Translations: [Hemorrhage of anus and rectum] Onset: 09-20-2019 10-02-2019 Episodic Mood disorders (7 sources) Mood disorders Onset: 03-20-2023 Resolved: 02-01-2024 03-20-2023 Other female genital disorders (7 sources) Polyp at cervical os; Translations: [Polyp of cervix uteri] Onset: 09-18-2019 07-06-2022 Episodic Other non-traumatic joint disorders (2 sources) Pain in left knee Onset: 08-19-2021 Resolved: 09-28-2021 Episodic Other nutritional; endocrine; and metabolic disorders (7 sources) Morbid obesity; Translations: [Morbid (severe) obesity due to excess calories] Onset: 09-18-2019 Resolved: 11-28-2023 07-06-2022 Chronic Results Test Name Value Interpretation Reference Range Facility COMPREHENSIVE METABOLIC PANE Bijan 02-01-2024 Albumin [Mass/Vol] 4.0 g/dL Normal 3.2-5.3 [facility] Comment on above: Performed By: #### Pete VINES, 76616-9 #### [facility] ([id number]) [address], [address] [place] [address] ALP [Catalytic activity/Vol] 103 U/L Normal 39-130 [facility] Comment on above: Performed By: #### Pete VINES, 62893-7 #### [facility] ([id number]) [address], [address] [place] [address] ALT [Catalytic activity/Vol] 15 U/L Normal 0-31 [facility] Comment on above: Performed By: #### Pete VINES, 90450-1 #### [facility] ([id number]) [address], [address] [place] [address] Anion gap [Moles/Vol] 10 mmol/L Normal 5-15 [facility] Comment on above: Performed By: #### Pete VINES, 44848-1 #### [facility] ([id number]) [address], [address] [place] [address] AST [Catalytic activity/Vol] 15 U/L Normal 0-41 [facility] Comment on above: Performed By: #### Pete VINES, 93525-4 #### [facility] ([id number]) [address], [address] [place] [address] Bilirubin [Mass/Vol] 0.4 mg/dL Normal 0.3-1.2 [facility] Comment on above: Performed By: #### Pete VINES, 22686-1 #### [facility] ([id number]) [address], [address] [place] [address] Calcium [Mass/Vol] 8.9 mg/dL Normal 8.5-10.5 [facility] Comment on above: Performed By: #### Pete VINES, 83430-5 #### [facility] ([id number]) [address], [address] [place] [address] Chloride [Moles/Vol] 105 mmol/L Normal 98-109 [facility] Comment on above: Performed By: #### Pete VINES, 96506-2 #### [facility] ([id number]) [address], [address] [place] [address] CO2 [Moles/Vol] 24 mmol/L Normal 22-32 [facility] Comment on above: Performed By: #### Pete VINES, 60264-5 #### [facility] ([id number]) [address], [address] [place] [address] Creatinine [Mass/Vol] 1.00 mg/dL Normal 0.40-1.00 [facility] Comment on above: Result Comment: METH OD TRACEABLE TO IDMS STANDARD Performed By: #### [place], [address]-8 #### [facility] ([id number]) [address], [address] [place] [address] GFR/1.73 sq M.predicted among non-blacks MDRD (S/P/Bld) [Vol rate/Area] 60 mL/min/{1.73_m2} Normal >59 [facility] Comment on above: Result Comment: Reported eGFR is based on the CKD-EPI 2020 equation that does not use a race coefficient. Performed By: #### Pete VINES 78662-5 #### [facility] ([id number]) [address], [address] [place] [address] Glucose [Mass/Vol] 100 mg/dL High 65-99 [facility] Comment on above: Performed By: #### Pete VINES 90170-5 #### [facility] ([id number]) [address], [address] [place] [address] Potassium [Moles/Vol] 4.3 mmol/L Normal 3.5-5.0 [facility] Comment on above: Performed By: #### Pete VINES, 89688-7 #### [facility] ([id number]) [address], [address] [place] [address] Protein [Mass/Vol] 7.6 g/dL Normal 6.0-8.0 [facility] Comment on above: Performed By: #### Pete VINES, 93404-6 #### [facility] ([id number]) [address], [address] [place] [address] Sodium [Moles/Vol] 139 mmol/L Normal 134-146 [facility] Comment on above: Performed By: #### Pete VINES, 54043-4 #### [facility] ([id number]) [address], [address] [place] [address] Urea nitrogen [Mass/Vol] 21 mg/dL Normal 5-27 [facility] Comment on above: Performed By: #### Pete VINES, 12678-6 #### [facility] ([id number]) [address], [address] [place] [address] Lipid 1996 panelon 01-31- 4 Cholesterol [Mass/Vol] 189 mg/dL Normal 150-200 [facility] Comment on above: Performed By: #### Pete VINES, 36908-5 #### [facility] ([id number]) [address], [address] [place] [address] Cholesterol in HDL [Mass/Vol] 65 mg/dL Normal >39 [facility] Comment on above: Result Comment: HDL <40 mg/dL - High Risk HDL > or = 40mg/dL- Desirable HDL >60 mg/dL - Negative Risk Performed By: #### Pete VINES, 21162-8 #### [facility] ([id number]) [address], [address] [place] [address] Cholesterol in LDL [Mass/Vol] 106 mg/dL Normal <130 [facility] Comment on above: Result Comment: LDL <100 mg/dL - Desirable LDL >160 mg/dL - High Risk Performed By: #### Pete VINES, 37404-9 #### [facility] ([id number]) [address], [address] [place] [address] Cholesterol in VLDL [Mass/Vol] 18 mg/dL Normal 0-30 [facility] Comment on above: Performed By: #### Pete VINES, 08425-5 #### [facility] ([id number]) [address], [address] [place] [address] CHOLESTEROL:HDL 2.9 Normal 1.0-5.0 [facility] Comment on above: Performed By: #### C JASMYN, 49478-7 #### [facility] ([id number]) [address], [address] [place] [address] Triglyceride [Mass/Vol] 91 mg/dL Normal 27-150 P [facility] Comment on above: Performed By: #### C JASMYN, 48629-0 #### [facility] ([id number]) [address], [address] [place] [address] MANUEL Antinuclear Antibodieson 01-23-2024 Antinuclear Abs, IFA Negative Normal . The Counts Include [address] Beds At [facility] Comment on above: Result Comment: Nega tive <1:80 Borderline 1:80 Positive >1:80 ICAP nomenclature: AC-0 For more information about Hep-2 cell patterns use ANApatterns.org, the official website for the International Consensus on Antinuclear Antibody (MANUEL) Patterns (ICAP). Performed at: - [facility] [address] [id number] Net Software Architect: Sly Mack PhD, Phone: [phone] PERFORMED BY: [place] [address] PATHOLOGIST EXTERNAL GRINDER AYO CRUZ M.D. Performed By: #### A LDOLASE, MANUEL #### [facility] , #### CK, CMP, CRP, T4F, TSH3, CBC, ESR #### [facility] [address] [place] [address] [place] Alanine aminotransferase [En zymatic activity/volume] in Serum or PlasmaOrdered By: Dax Coello on 01-23-2024 ALT [Catalytic activity/Vol] 24 U/L Normal 7-52 [facility] Comment on above: Performed By: #### A LDOLASE, MANUEL #### [facility] , #### CK, CMP, CRP, T4F, TSH3, CBC, ESR #### [place] [address] [place] Albumin [Mass/volume] in Ser um or Plasma by Bromocresol green (BCG) dye binding methoOrdered By: Dax Coello on 01-23-2024 Albumin BCG dye [Mass/Vol] 4.3 g/dL 3.5-5.7 [facility] Aldolaseon 01-23-2024 Aldolase 3.3 U/L Normal 3.3-10.3 The Counts Include [address] [facility] At [facility] Comment on above: Result Comment: Perf ormed at: - [facility] [address] [id number] Net Software Architect: Sly Mack PhD, Phone: [phone] PERFORMED BY: [place] [address] PATHOLOGIST EXTERNAL GRINDER AYO CRUZ M.D. Performed By: #### A LDOLASE, MANUEL #### [facility] , #### CK, CMP, CRP, T4F, TSH3, CBC, ESR #### [address] Alkaline phosphatase [Enzyma tic activity/volume] in Serum or PlasmaOrdered By: Dax Coello on 01-23-2024 ALP [Catalytic activity/Vol] 119 U/L High 34-104 [facility] Comment on above: Performed By: #### A LDOLASE, MANUEL #### [facility] , #### CK, CMP, CRP, T4F, TSH3, CBC, ESR #### [facility] [address] [place] [address] Aspartate aminotransferase [ Enzymatic activity/volume] in Serum or PlasmaOrdered By: Dax Coello on 01-23-2024 AST [Catalytic activity/Vol] 30 U/L Normal 13-39 [facility] Comment on above: Performed By: #### A LDOLASE, MANUEL #### [facility] , #### CK, CMP, CRP, T4F, TSH3, CBC, ESR #### [facility] [address] [place] [address] Automated basophil %Ordered By: Dax Coello on 01-23-2024 Basophils/100 WBC (Bld) 0.9 % Normal . [facility] Comment on above: Performed By: #### A LDOLASE, MANUEL #### [facility] , #### CK, CMP, CRP, T4F, TSH3, CBC, ESR #### [address] Automated basophil countOrde red By: Dax Coello on 01-23-2024 Basophils (Bld) [#/Vol] 0.1 10*3/uL Normal 0.0-0.2 [facility] Comment on above: Performed By: #### A LDOLASE, MANUEL #### [facility] , #### CK, CMP, CRP, T4F, TSH3, CBC, ESR #### [address] Automated blood monocyte cou ntOrdered By: Dax Coello on 01-23-2024 Monocytes (Bld) [#/Vol] 0.5 10*3/uL Normal 0.0-0.8 [facility] Comment on above: Performed By: #### A LDOLASE, MANUEL #### [facility] , #### CK, CMP, CRP, T4F, TSH3, CBC, ESR #### [address] Automated eosinophil %Ordere d By: Dax Coello on 01-23-2024 Eosinophils/100 WBC (Bld) 2.4 % Normal . [facility] Comment on above: Performed By: #### A LDOLASE, MANUEL #### [facility] , #### CK, CMP, CRP, T4F, TSH3, CBC, ESR #### [address] Automated eosinophil countOr dered By: Dax Coello on 01-23-2024 Eosinophils (Bld) [#/Vol] 0.2 10*3/uL Normal 0.0-0.45 [facility] Comment on above: Performed By: #### A LDOLASE, MANUEL #### [facility] , #### CK, CMP, CRP, T4F, TSH3, CBC, ESR #### [facility] [address] Automated monocyte %Ordered By: Dax Coello on 01-23-2024 Monocytes/100 WBC (Bld) 6.8 % Normal . [facility] Comment on above: Performed By: #### A LDOLASE, MANUEL #### [facility] , #### CK, CMP, CRP, T4F, TSH3, CBC, ESR #### [address] Automated neutrophil %Ordere d By: Dax Coello on 01-23-2024 Neutrophils/100 WBC (Bld) 61.7 % Normal . [facility] Comment on above: Performed By: #### A LDOLASE, MANUEL #### [facility] , #### CK, CMP, CRP, T4F, TSH3, CBC, ESR #### [address] Bilirubin.total [Mass/volume ] in Serum or PlasmaOrdered By: Dax Coello on 01-23-2024 Bilirubin [Mass/Vol] 0.5 mg/dL Normal 0.3-1.0 [facility] Comment on above: Performed By: #### A LDOLASE, MANUEL #### [facility] , #### CK, CMP, CRP, T4F, TSH3, CBC, ESR #### [address] C reactive protein [Mass/vol ume] in Serum or PlasmaOrdered By: Dax Coello on 01-23-2024 CRP [Mass/Vol] 1.0 mg/dL 0.0-0.5 [facility] C-Reactive Proteinon 024 C-Reactive Protein 1.0 mg/dL High 0.0-0.5 [facility] Comment on above: Performed By: #### A LDOLASE, MANUEL #### [facility] , #### CK, CMP, CRP, T4F, TSH3, CBC, ESR #### [facility] [address] Calcium [Mass/volume] in Ser um or PlasmaOrdered By: Dax Vergararow on 01-23-2024 Calcium [Mass/Vol] 9.6 mg/dL Normal 8.6-10.3 [facility] Comment on above: Performed By: #### A LDOLASE, MANUEL #### [facility] , #### CK, CMP, CRP, T4F, TSH3, CBC, ESR #### [address] Carbon dioxide, total [Moles /volume] in Serum or PlasmaOrdered By: Dax Vergararow on 01-23-2024 CO2 [Moles/Vol] 25.5 mmol/L Normal 21.0-31.0 [facility] Comment on above: Performed By: #### A LDOLASE, MANUEL #### [facility] , #### CK, CMP, CRP, T4F, TSH3, CBC, ESR #### [facility] [address] [place] [address] Chloride [Moles/volume] in S beatris or PlasmaOrdered By: Dax Vergararow on 01-23-2024 Chloride [Moles/Vol] 107 mmol/L Normal 98-107 [facility] Comment on above: Performed By: #### A LDOLASE, MANUEL #### [facility] , #### CK, CMP, CRP, T4F, TSH3, CBC, ESR #### [facility] [address] [place] [address] [place] Complete Blood Count Auto Di ffon 01-23-2024 Mean Corpuscular HGB Conc 33.2 g/dL Normal 32.0-35.0 The Counts Include [address] At [facility] Comment on above: Performed By: #### A LDOLASE, MANUEL #### [facility] , #### CK, CMP, CRP, T4F, TSH3, CBC, ESR #### [address] NRBC% 0.2 /100{WBC} Normal 0-0.5 [facility] Comment on above: Performed By: #### A LDOLASE, MANUEL #### [facility] , #### CK, CMP, CRP, T4F, TSH3, CBC, ESR #### [address] Comprehensive Metabolic Pane bijan 01-23-2024 Albumin [Mass/Vol] 4.3 g/dL Normal 3.5-5.7 [facility] Comment on above: Performed By: #### A LDOLASE, MANUEL #### [facility] , #### CK, CMP, CRP, T4F, TSH3, CBC, ESR #### [address] GFR/1.73 sq M.predicted MDRD (S/P/Bld) [Vol rate/Area] 47.618 mL/min/{1.73_m2} Normal The Counts Include [address] [facility] At [facility] Comment on above: Performed By: #### A LDOLASE, MANUEL #### [facility] , #### CK, CMP, CRP, T4F, TSH3, CBC, ESR #### [address] Creatine kinase [Enzymatic a ctivity/volume] in Serum or PlasmaOrdered By: Dax Coello on 01-23-2024 CK [Catalytic activity/Vol] 69 U/L Normal 30-223 [facility] Comment on above: Result Comment: PERF ORMED BY: [place] [address] PATHOLOGIST EXTERNAL GRINDER AYO CRUZ M.D. Performed By: #### A LDOLASE, MANUEL #### [facility] , #### CK, CMP, CRP, T4F, TSH3, CBC, ESR #### [address] Creatinine [Mass/volume] in Serum or PlasmaOrdered By: Dax Coello on 01-23-2024 Creatinine [Mass/Vol] 1.21 mg/dL High 0.60-1.20 [facility] Comment on above: Performed By: #### A LDOLASE, MANUEL #### [facility] , #### CK, CMP, CRP, T4F, TSH3, CBC, ESR #### [address] Erythrocyte Sedimentation Ra solo 01-23-2024 ESR (Bld) [Velocity] 58 mm/h High 0-29 The Counts Include [address] [facility] At [facility] Comment on above: Result Comment: PERF ORMED BY: [place] [address] PATHOLOGIST EXTERNAL GRINDER AYO CRUZ M.D. Performed By: #### A LDOLASE, MANUEL #### [facility] , #### CK, CMP, CRP, T4F, TSH3, CBC, ESR #### [address] Erythrocyte distribution wid th [Ratio] by Automated countOrdered By: Dax Coello on 01-23-2024 Erythrocyte distribution width (RBC) [Ratio] 15.3 % Normal 11.9-15.3 [facility] Comment on above: Performed By: #### A LDOLASE, MANUEL #### [facility] , #### CK, CMP, CRP, T4F, TSH3, CBC, ESR #### [address] Erythrocyte sedimentation ra te by Photometric methodOrdered By: Dax Coello on 01-23-2024 ESR Photometric method (Bld) [Velocity] 58 mm/hr 0-29 [facility] Erythrocytes [#/volume] in B lood by Automated countOrdered By: Dax Coello on 01-23-2024 RBC (Bld) [#/Vol] 5.04 10*6/uL High 3.60-5.00 [facility] Comment on above: Performed By: #### A LDOLASE, MANUEL #### [facility] , #### CK, CMP, CRP, T4F, TSH3, CBC, ESR #### [facility] [address] Glucose [Mass/volume] in Ser um or PlasmaOrdered By: Dax Coello on 01-23-2024 Glucose [Mass/Vol] 110 mg/dL High 70-100 [facility] Comment on above: ADA recommended refe rence rangeRandom Glucose Reference Range is dependent on time and content of last meal. Glucose of more than 200 mg/dL in a nonstressed, ambulatory subject supports the diagnosis of Diabetes Mellitus. Result Comment: [place] om Glucose Reference Range is dependent on time and content of last meal. Glucose of more than 200 mg/dL in a nonstressed, ambulatory subject supports the diagnosis of Diabetes Mellitus. ADA recommended reference range Performed By: #### A LDOLASE, MANUEL #### [facility] , #### CK, CMP, CRP, T4F, TSH3, CBC, ESR #### [facility] [address] Hematocrit [Volume Fraction] of Blood by Automated countOrdered By: Dax Coello on 01-23-2024 Hematocrit (Bld) [Volume fraction] 43.1 % Normal 34.0-46.4 [facility] Comment on above: Performed By: #### A LDOLASE, MANUEL #### [facility] , #### CK, CMP, CRP, T4F, TSH3, CBC, ESR #### [facility] [address] [place] [address] [place] Hemoglobin [Mass/volume] in BloodOrdered By: Dax Vergararow on 01-23-2024 Hemoglobin (Bld) [Mass/Vol] 14.3 g/dL Normal 11.8-15.4 [facility] Comment on above: Performed By: #### A LDOLASE, MANUEL #### [facility] , #### CK, CMP, CRP, T4F, TSH3, CBC, ESR #### [address] Leukocytes [#/volume] correc luis alfredo for nucleated erythrocytes in Blood by Automated counOrdered By: Dax Vergararow on 01-23-2024 WBC corrected for nucl RBC Auto (Bld) [#/Vol] 7.1 10*3/uL 3.8-11.6 [facility] Leukocytes [#/volume] in Blo od by Automated countOrdered By: Dax Mode on 01-23-2024 WBC (Bld) [#/Vol] 7.1 10*3/uL Normal 3.8-11.6 [facility] Comment on above: Performed By: #### A LDOLASE, MANUEL #### [facility] , #### CK, CMP, CRP, T4F, TSH3, CBC, ESR #### [place] [address] [place] Lymphocytes [#/volume] in Bl ood by Automated countOrdered By: Dax Mode on 01-23-2024 Lymphocytes (Bld) [#/Vol] 2.0 10*3/uL Normal 1.00-4.8 [facility] Comment on above: Performed By: #### A LDOLASE, MANUEL #### [facility] , #### CK, CMP, CRP, T4F, TSH3, CBC, ESR #### [place] [address] [place] Lymphocytes/100 leukocytes i n Blood by Automated countOrdered By: Daxsilvia Coello on 01-23-2024 Lymphocytes/100 WBC (Bld) 28.2 % Normal . [facility] Comment on above: Performed By: #### A LDOLASE, MANUEL #### [facility] , #### CK, CMP, CRP, T4F, TSH3, CBC, ESR #### [place] [address] [place] MCH [Entitic mass] by Automa luis alfredo countOrdered By: Daxsilvia Coello on 01-23-2024 MCH (RBC) [Entitic mass] 28.4 pg Normal 24.7-34.3 [facility] Comment on above: Performed By: #### A LDOLASE, MANUEL #### [facility] , #### CK, CMP, CRP, T4F, TSH3, CBC, ESR #### [facility] [address] MCHC Auto (RBC) [Mass/Vol]Or dered By: Dax Coello on 01-23-2024 MCHC (RBC) [Mass/Vol] 33.2 g/dL 32.0-35.0 [facility] MCV [Entitic volume] by Auto mated countOrdered By: Dax Mode on 01-23-2024 MCV (RBC) [Entitic vol] 85.5 fL Normal 80-100 [facility] Comment on above: Performed By: #### A LDOLASE, MANUEL #### [facility] , #### CK, CMP, CRP, T4F, TSH3, CBC, ESR #### [address] Neutrophils [#/volume] in Bl ood by Automated countOrdered By: Dax Mode on 01-23-2024 Neutrophils (Bld) [#/Vol] 4.4 10*3/uL Normal 1.8-7.7 [facility] Comment on above: Performed By: #### A LDOLASE, MANUEL #### [facility] , #### CK, CMP, CRP, T4F, TSH3, CBC, ESR #### [address] No Panel InformationOrdered By: Dax Coello on 01-23-2024 Estimated GFR (CKD-EPI) 47.618 mL/Min [facility] Creatinine Clearance (Chem N/A [facility] Nucleated erythrocytes [Pres ence] in Blood by Automated countOrdered By: Dax Coello on 01-23-2024 Nucleated RBC Auto Ql (Bld) 0.2 /100{WBC} 0-0.5 [facility] Platelet mean volume [Entiti c volume] in Blood by Automated countOrdered By: Dax Vergararow on 01-23-2024 Platelet mean volume (Bld) [Entitic vol] 8.6 fL Normal 6.3-10.7 [facility] Comment on above: Performed By: #### A LDOLASE, MANUEL #### [facility] , #### CK, CMP, CRP, T4F, TSH3, CBC, ESR #### [facility] [address] Platelets [#/volume] in Bloo d by Automated countOrdered By: Dax Vergararow on 01-23-2024 Platelets (Bld) [#/Vol] 380 10*3/uL Normal 150-450 [facility] Comment on above: Performed By: #### A LDOLASE, MANUEL #### [facility] , #### CK, CMP, CRP, T4F, TSH3, CBC, ESR #### [address] Potassium [Moles/volume] in Serum or PlasmaOrdered By: Dax Mode on 01-23-2024 Potassium [Moles/Vol] 4.5 mmol/L Normal 3.5-5.1 [facility] Comment on above: Performed By: #### A LDOLASE, MANUEL #### [facility] , #### CK, CMP, CRP, T4F, TSH3, CBC, ESR #### [address] Protein [Mass/volume] in Ser um or PlasmaOrdered By: Dax Coello on 01-23-2024 Protein [Mass/Vol] 7.5 g/dL Normal 6.4-8.9 [facility] Comment on above: Performed By: #### A LDOLASE, MANUEL #### [facility] , #### CK, CMP, CRP, T4F, TSH3, CBC, ESR #### [address] Serum globulin measurement b y calculation (mass/volume)Ordered By: Dax Vergararow on 01-23-2024 Globulin (S) [Mass/Vol] 3.2 g/dL Normal [facility] Comment on above: Performed By: #### A LDOLASE, MANUEL #### [facility] , #### CK, CMP, CRP, T4F, TSH3, CBC, ESR #### [address] Serum or plasma albumin/glob ulin mass ratioOrdered By: Daxsilvia Coello on 01-23-2024 Albumin/Globulin [Mass ratio] 1.3 {ratio} Normal [facility] Comment on above: Performed By: #### A LDOLASE, MANUEL #### [facility] , #### CK, CMP, CRP, T4F, TSH3, CBC, ESR #### [address] Serum or plasma anion gap de terminationOrdered By: Dax Coello on 01-23-2024 Anion gap [Moles/Vol] 12.0 mmol/L Normal 6.0-15.0 [facility] Comment on above: Performed By: #### A LDOLASE, MANUEL #### [facility] , #### CK, CMP, CRP, T4F, TSH3, CBC, ESR #### [address] Sodium [Moles/volume] in Ser um or PlasmaOrdered By: Dax Coello on 01-23-2024 Sodium [Moles/Vol] 140 mmol/L Normal 136-145 [facility] Comment on above: Performed By: #### A LDOLASE, MANUEL #### [facility] , #### CK, CMP, CRP, T4F, TSH3, CBC, ESR #### [address] Thyrotropin [Units/volume] i n Serum or PlasmaOrdered By: Dax Coello on 01-23-2024 TSH Qn 1.66 m[IU]/L Normal 0.45-5.33 [facility] Comment on above: Result Comment: PERF ORMED BY: [place] [address] PATHOLOGIST EXTERNAL GRINDER AYO CRUZ M.D. Performed By: #### A LDOLASE, MANUEL #### [facility] , #### CK, CMP, CRP, T4F, TSH3, CBC, ESR #### [address] Thyroxine (T4) free [Mass/vo lume] in Serum or PlasmaOrdered By: Dax Coello on 01-23-2024 Free T4 [Mass/Vol] 0.93 ng/dL Normal 0.61-1.12 [facility] Comment on above: Performed By: #### A LDOLASE, MANUEL #### [facility] , #### CK, CMP, CRP, T4F, TSH3, CBC, ESR #### [address] Urea nitrogen [Mass/volume] in Serum or PlasmaOrdered By: Dax Coello on 01-23-2024 Urea nitrogen [Mass/Vol] 14 mg/dL Normal 7-25 [facility] Comment on above: Performed By: #### A LDOLASE, MANUEL #### [facility] , #### CK, CMP, CRP, T4F, TSH3, CBC, ESR #### [address] CBC AND AUTO DIFFon 11-28-19 24 ABSOLUTE BASOPHIL 0.1 X10E9/L Normal 0.0-0.2 [facility] Comment on above: Performed By: #### C BCA, CMP, 21310-1, 3084-1, THYR, 23472-0 #### [facility] ([id number]) [address], [address] [place] [address] ABSOLUTE NEUTROPHIL 4.6 X10E9/L Normal 1.5-6.6 [facility] Comment on above: Performed By: #### C BCA, CMP, , 3083-, THYR, 88340-6 #### [facility] ([id number]) [address], [address] [place] [address] Basophils/100 WBC (Bld) 0.9 % Normal [facility] Comment on above: Performed By: #### C BCA, CMP, , 3083-09, THYR, 80302-5 #### [facility] ([id number]) [address], [address] [place] [address] Eosinophils (Bld) [#/Vol] 0.3 10*3/uL Normal 0.0-0.4 [facility] Comment on above: Performed By: #### C BCA, CMP, , 3083-09, THYR, 61044-4 #### [facility] ([id number]) [address], [address] [place] [address] Eosinophils/100 WBC (Bld) 4.6 % Normal [facility] Comment on above: Performed By: #### C BCA, CMP, , 3083-09, THYR, 86660-3 #### [facility] ([id number]) [address], [address] [place] [address] Erythrocyte distribution width (RBC) [Ratio] 14.1 % Normal 11.5-15.0 [facility] Comment on above: Performed By: #### C BCA, CMP, , 3083-, THYR, 98563-7 #### [facility] ([id number]) [address], [address] [place] [address] Hematocrit (Bld) [Volume fraction] 39.1 % Normal 35-47 [facility] Comment on above: Performed By: #### C BCA, CMP, 78889-5, 3083-1, THYR, 81224-4 #### [facility] ([id number]) [address], [address] [place] [address] Hemoglobin (Bld) [Mass/Vol] 13.2 g/dL Normal 11.7-15.5 [facility] Comment on above: Performed By: #### C BCA, CMP, 56345-5, 3083-1, THYR, 07325-6 #### [facility] ([id number]) [address], [address] [place] [address] Lymphocytes (Bld) [#/Vol] 1.7 10*3/uL Normal 1.0-3.5 [facility] Comment on above: Performed By: #### C BCA, CMP, 30782-6, 3083-, THYR, 20181-6 #### [facility] ([id number]) [address], [address] [place] [address] Lymphocytes/100 WBC (Bld) 23.3 % Normal [facility] Comment on above: Performed By: #### C BCA, CMP, 47333-2, 3083-, THYR, 90249-1 #### [facility] ([id number]) [address], [address] [place] [address] MCH (RBC) [Entitic mass] 28.6 pg Normal 27-34 [facility] Comment on above: Performed By: #### C BCA, CMP, 09747-0, 3083-1, THYR, 39832-7 #### [facility] ([id number]) [address], [address] [place] [address] MCHC (RBC) [Mass/Vol] 33.8 g/dL Normal 32-36 [facility] Comment on above: Performed By: #### C BCA, CMP, 96198-2, 4-1, THYR, 40488-5 #### [facility] ([id number]) [address], [address] [place] [address] MCV (RBC) [Entitic vol] 85 fL Normal 80-100 [facility] Comment on above: Performed By: #### C BCA, CMP, 44985-7, 4-1, THYR, 32642-5 #### [facility] ([id number]) [address], [address] [place] [address] Monocytes (Bld) [#/Vol] 0.6 10*3/uL Normal 0-0.9 [facility] Comment on above: Performed By: #### C BCA, CMP, 94613-4, 3083-, THYR, 30660-6 #### [facility] ([id number]) [address], [address] [place] [address] Monocytes/100 WBC (Bld) 7.7 % Normal P [facility] Comment on above: Performed By: #### C BCA, CMP, 43766-8, 3083-, THYR, 61924-7 #### [facility] ([id number]) [address], [address] [place] [address] Neutrophils/100 WBC (Bld) 63.5 % Normal [facility] Comment on above: Performed By: #### C BCA, CMP, 83013-9, 3083-, THYR, 90936-3 #### [facility] ([id number]) [address], [address] [place] [address] Platelet mean volume (Bld) [Entitic vol] 8.7 fL Normal 7-12 [facility] Comment on above: Performed By: #### C BCA, CMP, 49070-8, 3083-, THYR, 59455-8 #### [facility] ([id number]) [address], [address] [place] [address] Platelets (Bld) [#/Vol] 366 10*3/uL Normal 150-450 [facility] Comment on above: Performed By: #### C BCA, CMP, 83322-0, 3084-1, THYR, 31863-5 #### [facility] ([id number]) [address], [address] [place] [address] RBC COUNT 4.63 X10E12/L Normal 3.80-5.20 [facility] Comment on above: Performed By: #### C BCA, CMP, 26656-4, 4-1, THYR, 45201-7 #### [facility] ([id number]) [address], [address] [place] [address] WBC (Bld) [#/Vol] 7.2 10*3/uL Normal 4.0-11.0 [facility] Comment on above: Performed By: #### C BCA, CMP, 75284-8, 4-1, THYR, 30524-3 #### [facility] ([id number]) [address], [address] [place] [address] CBC auto differentialon 11-03 Basophils (Bld) [#/Vol] 0.1 10*3/uL [facility] Basophils/100 WBC (Bld) 0.9 % [facility] Eosinophils (Bld) [#/Vol] 0.3 10*3/uL [facility] Eosinophils/100 WBC (Bld) 4.6 % [facility] Erythrocyte distribution width (RBC) [Ratio] 14.1 % 11.5 - 15.0 % [facility] Hematocrit (Bld) [Volume fraction] 39.1 % 35 - 47 % [facility] Hemoglobin (Bld) [Mass/Vol] 13.2 g/dL 11.7 - 15.5 g/dL [facility] Lymphocytes (Bld) [#/Vol] 1.7 10*3/uL [facility] Lymphocytes/100 WBC (Bld) 23.3 % [facility] MCH (RBC) [Entitic mass] 28.6 pg 27 - 34 pg [facility] MCHC (RBC) [Mass/Vol] 33.8 g/dL 32 - 36 g/dL P [facility] MCV (RBC) [Entitic vol] 85 fL 80 - 100 fL [facility] Monocytes (Bld) [#/Vol] 0.6 10*3/uL [facility] Monocytes/100 WBC (Bld) 7.7 % P [facility] Neutrophils (Bld) [#/Vol] 4.6 10*3/uL [facility] Neutrophils/100 WBC (Bld) 63.5 % [facility] Platelet mean volume (Bld) [Entitic vol] 8.7 fL 7 - 12 fL [facility] Platelets (Bld) [#/Vol] 366 10*3/uL [facility] RBC (Bld) [#/Vol] 4.63 10*6/uL [facility] WBC corrected for nucl RBC Auto (Bld) [#/Vol] 7.2 [facility] COMPREHENSIVE METABOLIC PANE Bijan 11-28-2023 Albumin [Mass/Vol] 3.9 g/dL Normal 3.2-5.3 [facility] Comment on above: Performed By: #### C BCA, CMP, 66260-9, 3084-1, THYR, 06486-4 #### [facility] ([id number]) [address], [address] [place] [address] ALP [Catalytic activity/Vol] 101 U/L Normal 39-130 [facility] Comment on above: Performed By: #### C BCA, CMP, 46095-7, 3084-1, THYR, 61522-1 #### [facility] ([id number]) [address], [address] [place] [address] ALT [Catalytic activity/Vol] 15 U/L Normal 0-31 [facility] Comment on above: Performed By: #### C BCA, CMP, 22660-0, 3084-1, THYR, 28728-4 #### [facility] ([id number]) [address], [address] [place] [address] Anion gap [Moles/Vol] 10 mmol/L Normal 5-15 [facility] Comment on above: Performed By: #### C BCA, CMP, 74928-4, 3083-1, THYR, 83998-6 #### [facility] ([id number]) [address], [address] [place] [address] AST [Catalytic activity/Vol] 20 U/L Normal 0-41 [facility] Comment on above: Performed By: #### C BCA, CMP, 96880-5, 3083-, THYR, 76973-0 #### [facility] ([id number]) [address], [address] [place] [address] Bilirubin [Mass/Vol] 0.3 mg/dL Normal 0.3-1.2 [facility] Comment on above: Performed By: #### C BCA, CMP, , 3083-, THYR, 89621-9 #### [facility] ([id number]) [address], [address] [place] [address] Calcium [Mass/Vol] 9.1 mg/dL Normal 8.5-10.5 [facility] Comment on above: Performed By: #### C BCA, CMP, 43375-6, 3083-, THYR, 05514-3 #### [facility] ([id number]) [address], [address] [place] [address] Chloride [Moles/Vol] 105 mmol/L Normal 98-109 [facility] Comment on above: Performed By: #### C BCA, CMP, 79268-6, 3083-, THYR, 52940-4 #### [facility] ([id number]) [address], [address] [place] [address] CO2 [Moles/Vol] 25 mmol/L Normal 22-32 [facility] Comment on above: Performed By: #### C BCA, CMP, 63404-0, 3084-1, THYR, 22033-8 #### [facility] ([id number]) [address] [place] [address] Creatinine [Mass/Vol] 1.06 mg/dL High 0.40-1.00 [facility] Comment on above: Result Comment: METH OD TRACEABLE TO IDMS STANDARD Performed By: #### C BCA, CMP, 41942-9, 3083-, THYR, 41675-6 #### [facility] ([id number]) [address] [address] GFR/1.73 sq M.predicted among non-blacks MDRD (S/P/Bld) [Vol rate/Area] 56 mL/min/{1.73_m2} Low >59 [facility] Comment on above: Result Comment: Reported eGFR is based on the CKD-EPI 2020 equation that does not use a race coefficient. Performed By: #### C BCA, CMP, 95004-6, 3083-, THYR, 54268-9 #### [facility] ([id number]) [address] [address] Glucose [Mass/Vol] 111 mg/dL High 65-99 [facility] Comment on above: Performed By: #### C BCA, CMP, 37919-3, 3083-, THYR, 46385-4 #### [facility] ([id number]) [address] [address] Potassium [Moles/Vol] 3.7 mmol/L Normal 3.5-5.0 [facility] Comment on above: Performed By: #### C BCA, CMP, 78484-3, 4-1, THYR, 67004-3 #### [facility] ([id number]) [address] [place] [address] Protein [Mass/Vol] 7.2 g/dL Normal 6.0-8.0 [facility] Comment on above: Performed By: #### C BCA, CMP, 91210-6, 3084-1, THYR, 36905-1 #### [facility] ([id number]) [address], [address] [place] [address] Sodium [Moles/Vol] 140 mmol/L Normal 134-146 [facility] Comment on above: Performed By: #### C BCA, CMP, 86081-8, 3084-1, THYR, 11082-5 #### [facility] ([id number]) [address], [address] [place] [address] Urea nitrogen [Mass/Vol] 18 mg/dL Normal 5-27 [facility] Comment on above: Performed By: #### C BCA, CMP, 05191-6, 3084-1, THYR, 48481-7 #### [facility] ([id number]) [address], [address] [place] [address] Comprehensive metabolic pane bijan 11-28-2023 Albumin [Mass/Vol] 3.9 g/dL 3.2 - 5.3 g/dL [facility] ALP [Catalytic activity/Vol] 101 U/L 39 - 130 U/L [facility] ALT No additional P-5'-P [Catalytic activity/Vol] 15 U/L 0 - 31 U/L [facility] Anion gap [Moles/Vol] 10 mmol/L 5 - 15 mmol/L [facility] AST [Catalytic activity/Vol] 20 U/L 0 - 41 U/L [facility] Bilirubin [Mass/Vol] 0.3 mg/dL 0.3 - 1 .2 mg/dL [facility] Calcium [Mass/Vol] 9.1 mg/dL 8.5 - 10. 5 mg/dL [facility] Chloride [Moles/Vol] 105 mmol/L 98 - 10 9 mmol/L [facility] CO2 [Moles/Vol] 25 mmol/L 22 - 32 mmol/L [facility] Creatinine [Mass/Vol] 1.06 mg/dL High 0.40 - 1.00 mg/dL [facility] Comment on above: METHOD TRACEABLE TO [facility] STANDARD eGFR (CKD-EPI)non-race dependent 56 Low - PINF [facility] Comment on above: Reported eGFR is based on the CKD-EPI 2020 equation that does not use a race coefficient. Glucose [Mass/Vol] 111 mg/dL High 65 - 99 mg/dL [facility] Interpretation and review of laboratory results Abnormal [facility] Potassium [Moles/Vol] 3.7 mmol/L 3.5 - 5.0 mmol/L [facility] Protein [Mass/Vol] 7.2 g/dL 6.0 - 8.0 g/dL [facility] Sodium [Moles/Vol] 140 mmol/L 134 - 146 mmol/L [facility] Urea nitrogen [Mass/Vol] 18 mg/dL 5 - 27 mg/d L [facility] ESR Photometric method (Bld) [Velocity]on 11-28-2023 Interpretation and review of laboratory results Abnormal [facility] ESR, ERYTHROCYTE SEDIMENTATION RATE 78 mm/h High 0-30 [facility] Comment on above: Performed By: #### C RENA CAMPBELL, 62966-5, 3083-1, THYR, 80553-3 #### [facility] ([id number]) [address], [address] [place] [address] Erythrocyte Sedimentation Ra te (ESR)on 11-28-2023 ESR Photometric method (Bld) [Velocity] 78 mm/h High 0 - 30 mm/h [facility] MAGNESIUMon 11-28-2023 Magnesium [Mass/Vol] 2.0 mg/dL Normal 1.8-2.6 [facility] Comment on above: Performed By: #### C SHANNAN CMP, 43071-4, 3084-1, THYR, 10304-2 #### [facility] ([id number]) [address], [address] [place] [address] Magnesiumon 11-28-2023 Magnesium [Mass/Vol] 2.0 mg/dL 1.8 - 2 .6 mg/dL [facility] No Panel Informationon 11-27 [facility] THYROID PROFILEon 11-28-2023 Free T4 [Mass/Vol] 0.90 ng/dL Normal 0.61-1.60 [facility] Comment on above: Performed By: #### C BCA, CMP, , 3083-09, THYR, 57248-5 #### [facility] ([id number]) [address], [address] [place] [address] TSH 2.38 uIU/mL Normal 0.49-4.67 [facility] Comment on above: Performed By: #### C BCA, CMP, , 3083-09, THYR, 20071-4 #### [facility] ([id number]) [address], [address] [place] [address] Thyroid profile includes TSH FT4on 11-28-2023 Free T4 [Mass/Vol] 0.90 ng/dL 0.61 - 1. 60 ng/dL [facility] TSH Qn 2.38 m[IU]/L [facility] URIC ACIDon 11-28-2023 Urate [Mass/Vol] 5.2 mg/dL Normal 2.6-7.2 [facility] Comment on above: Performed By: #### C BCA, CMP, , 3083-09, THYR, 16692-3 #### [facility] ([id number]) [address], [address] [place] [address] Uric acidon 11-28-2023 Urate [Mass/Vol] 5.2 mg/dL 2.6 - 7.2 mg/dL [facility] MR knee RT wo conon 10-24-19 MR knee RT wo con [facility] [address] [address] MRI Report Signed Patient: Lisa Cochran MR#: [id number] 5 : 1950 Acct:[id number] Age/Sex: 73 / F ADM Date: 10/24/23 Loc: Room: Type: [facility] Attending Dr: Aldo Wynn MD Copies [...] Eduardo Oates M.D.10/24/2023 1:18 PM Dictation Location: [facility]-12 Transcribed By: LEONARDA 10/24/23 1318 Dictated By: Luis Eduardo Oates DO 10/24/23 1308 Signed By: 10/24/23 1318 Normal The Counts Include [facility] XR knee RT 2Von 10-03-2023 XR knee RT 2V [facility] Main [place] [address] [place] [address] XRay Report Signed Patient: Lisa Cochran MR#: [id number] 5 : 1950 Acct:[id number] Age/Sex: 73 / F ADM Date: 10/03/23 Loc: [facility] Room: Type: [facility] Attending Dr: Aldo Wynn MD Copies [...] Eduardo Oates M.D.10/03/2023 1:36 PM Dictation Location: [place] [address] Transcribed By: LEONARDA 10/03/23 1336 Dictated By: Luis Eduardo Oates DO 10/03/23 1335 Signed By: 10/03/23 1336 Normal The Counts Include 234 [facility] COVID/FLU/RSV RT-PCRon 09-01 SARS-CoV-2 (COVID-19) RNA ANGEL+probe Ql (Unsp spec) Negative [employer] Other COVID/FLU/RSV RT-PCR Negative [facility] [employer] Other COMPREHENSIVE METABOLIC PANE [place] 12-14-2021 Albumin [Mass/Vol] 4.3 g/dL Normal 3.6-5.1 [facility] Comment on above: Performed By: #### 1 0231, 7600 #### [facility] of [address], [address] [place] [address] Can Marker: Napoleon Anne MD Albumin/Globulin [Mass ratio] 1.6 {ratio} Normal 1.0-2.5 [facility] Comment on above: Performed By: #### 1 0231, 7600 #### [facility] of [address], [address] [place] [address] Can Marker: Napoleon Anne MD ALP [Catalytic activity/Vol] 108 U/L Normal 37-153 [facility] Comment on above: Performed By: #### 1 0231, 7600 #### [facility] of [address], [address] [place] [address] Can Marker: Napoleon Anne MD ALT [Catalytic activity/Vol] 10 U/L Normal 6-29 [facility] Comment on above: Performed By: #### 1 0231, 7600 #### [facility] of [address], [address] [place] [address] Can Marker: Napoleon Anne MD AST [Catalytic activity/Vol] 14 U/L Normal 10-35 [facility] Comment on above: Performed By: #### 1 0231, 7600 #### [facility] of [address], [address] [place] [address] Can Marker: Napoleon Anne MD Bilirubin [Mass/Vol] 0.5 mg/dL Normal 0.2-1.2 [facility] Comment on above: Performed By: #### 1 0231, 7600 #### [facility] of [address], [address] [place] [address] Can Marker: Napoleon Anne MD BUN/CREATININE RATIO NOT APPLICABLE Normal 6-22 [facility] Comment on above: Performed By: #### 1 0231, 7600 #### [facility] of [address], [address] [place] [address] Can Marker: Napoleon Anne MD Calcium [Mass/Vol] 9.5 mg/dL Normal 8.6-10.4 [facility] Comment on above: Performed By: #### 1 230, 7600 #### [facility] [address], [address] [place] [address] Can Marker: Napoleon Anne MD Chloride [Moles/Vol] 106 mmol/L Normal 98-110 [facility] Comment on above: Performed By: #### 1 230, 7600 #### [facility] [address], [address] [place] [address] Can Marker: Napoleon Anne MD CO2 [Moles/Vol] 29 mmol/L Normal 20-32 [facility] Comment on above: Performed By: #### 1 023, 7600 #### [facility] [address], [address] [place] [address] Can Marker: Napoleon Anne MD Creatinine [Mass/Vol] 0.86 mg/dL Normal 0.60-0.[address] [facility] [address] [facility] Comment on above: Result Comment: For patients >49 years of age, the reference limit for Creatinine is approximately 13% higher for people identified as -Malian. Performed By: #### 1 230, 7600 #### [facility] [place] [address] Can Marker: Napoleon Anne MD eGFR NON-AFR. SWISS 68 mL/min/1.73m2 Normal > OR = 60 [facility] Comment on above: Performed By: #### 1 023, 7600 #### [facility] [address], [address] [place] [address] Can Marker: Napoleon Anne MD GFR/1.73 sq M.predicted among blacks MDRD (S/P/Bld) [Vol rate/Area] 79 mL/min/{1.73_m2} Normal > OR = 60 [facility] Comment on above: Performed By: #### 1 230, 0 #### [facility] [address], [address] [place], [place] [address] Can Marker: Napoleon Anne MD Globulin (S) [Mass/Vol] 2.7 g/dL Normal 1.9-3.7 [facility] Comment on above: Performed By: #### 1 0231, 7600 #### [facility] [place] [address] Can Marker: Napoleon Anne MD Glucose [Mass/Vol] 100 mg/dL High 65-99 [facility] Comment on above: Result Comment: Fasting reference interval For someone without known diabetes, a glucose value between 100 and 125 mg/dL is consistent with prediabetes and should be confirmed with a follow-up test. Performed By: #### 1 0231, 7600 #### [facility] [place] [address] Can Marker: Napoleon Anne MD Potassium [Moles/Vol] 4.1 mmol/L Normal 3.5-5.[address] [facility] Comment on above: Performed By: #### 1 023, 7600 #### [facility] [address], [address] [place] [address] Can Marker: Napoleon Anne MD Protein [Mass/Vol] 7.0 g/dL Normal 6.1-8.1 [facility] Comment on above: Performed By: #### 1 023, 7600 #### [facility] [place] [address] Can Marker: Napoleon Anne MD Sodium [Moles/Vol] 141 mmol/L Normal 135-146 [facility] Comment on above: Performed By: #### 1 023, 7600 #### [facility] [place] [address] Can Marker: Napoleon Anne MD Urea nitrogen [Mass/Vol] 14 mg/dL Normal 7-25 [facility] Comment on above: Performed By: #### 1 0231, 7600 #### [facility] [place] [address] Can Marker: Napoleon Anne MD LIPID PANEL, [facility] - Cholesterol [Mass/Vol] 191 mg/dL Normal <200 [facility] Comment on above: Order Comment: FASTI NG:YES FASTING: YES Performed By: #### 1 0231, 7600 #### [facility] [address], [address] [place] [address] Can Marker: Napoleon Anne MD Cholesterol in HDL [Mass/Vol] 63 mg/dL Normal > OR = 50 [facility] Comment on above: Order Comment: FASTI NG:YES FASTING: YES Performed By: #### 1 023, 0 #### [facility] [address], [address] [place] [address] Can Marker: Napoleon Anne MD Cholesterol in LDL [Mass/Vol] [...] equation in the estimation of LDL-C. Obinna SS et al. ALIREZA. 2013;310(19): 1645-1554 (http://education.[employer]/faq/JSB842) Performed By: #### 1 023, 0 #### [facility] [address], [address] [place] [address] Can Marker: Napoleon Anne MD Cholesterol.total/Choles terol in HDL [Mass ratio] 3.0 {ratio} Normal <5.0 [facility] Comment on above: Order Comment: FASTI NG:YES FASTING: YES Performed By: #### 1 0231, 7600 #### [facility] [address], [address] [place] [address] Can Marker: Napoleon Anne MD NON HDL CHOLESTEROL 128 mg/dL (calc) Normal <130 [facility] Comment on above: Order Comment: FASTI NG:YES FASTING: YES Result Comment: For patients with diabetes plus 1 major ASCVD risk factor, treating to a non-HDL-C goal of <100 mg/dL (LDL-C of <70 mg/dL) is considered a therapeutic option. Performed By: #### 1 0231, 7600 #### [facility] [address], [address] [place] [address] Can Marker: Napoleon Anne MD Triglyceride [Mass/Vol] 146 mg/dL Normal <150 [facility] Comment on above: Order Comment: FASTI NG:YES FASTING: YES Performed By: #### 1 0231, 7600 #### [facility] [place] [address] Can Marker: Napoleon Anne MD BASIC METABOLIC PANELon 10-2 0 BUN/CREATININE RATIO NOT APPLICABLE Normal 6-22 [facility] Comment on above: Performed By: #### 7 18, 68743, 77095, 905, 6399, 622 #### [facility] [place] [address] Can Marker: Napoleon Anne MD Calcium [Mass/Vol] 9.1 mg/dL Normal 8.6-10.4 [facility] Comment on above: Performed By: #### 7 18, 51088, 18123, 905, 6399, 622 #### [facility] [place] [address] Can Marker: Napoleon Anne MD Chloride [Moles/Vol] 103 mmol/L Normal 98-110 [facility] Comment on above: Performed By: #### 7 18, 05400, 21983, 905, 6399, 622 #### [facility] [place] [address] Can Marker: Napoleon Anne MD CO2 [Moles/Vol] 22 mmol/L Normal 20-32 [facility] Comment on above: Performed By: #### 7 18, 97342, 13559, 905, 6399, 622 #### [facility] [place] [address] Can Marker: Napoleon Anne MD Creatinine [Mass/Vol] 0.93 mg/dL Normal 0.60-0.[address] [email or web address] Comment on above: Result Comment: For patients >49 years of age, the reference limit for Creatinine is approximately 13% higher for people identified as -Malian. Performed By: #### 7 18, 23995, 17489, 905, 6399, 622 #### [facility] [address], [address] [place] [address] Can Marker: Napoleon Anne MD eGFR NON-AFR. SWISS 62 mL/min/1.73m2 Normal > OR = 60 [facility] Comment on above: Performed By: #### 7 18, 86881, 76519, 905, 6399, 622 #### [facility] [place] [address] Can Marker: Napoleon Anne MD GFR/1.73 sq M.predicted among blacks MDRD (S/P/Bld) [Vol rate/Area] 72 mL/min/{1.73_m2} Normal > OR = 60 [facility] Comment on above: Performed By: #### 7 18, 55454, 96592, 905, 6399, 622 #### [facility] [place] [address] Can Marker: Napoleon Anne MD Glucose [Mass/Vol] 100 mg/dL High 65-99 [facility] Comment on above: Result Comment: Fasting reference interval For someone without known diabetes, a glucose value between 100 and 125 mg/dL is consistent with prediabetes and should be confirmed with a follow-up test. Performed By: #### 7 18, 77336, 54771, 905, 6399, 622 #### [facility] [place] [address] Can Marker: Napoleon Anne MD Potassium [Moles/Vol] 4.0 mmol/L Normal 3.5-5.[address] [facility] Comment on above: Performed By: #### 7 18, 20107, 71160, 905, 6399, 622 #### [facility] of [place] [address] Can Marker: Napoleon Anne MD Sodium [Moles/Vol] 139 mmol/L Normal 135-146 [facility] Comment on above: Performed By: #### 7 18, 73910, 28750, 905, 6399, 622 #### [facility] of [place] [address] Can Marker: Napoleon Anne MD Urea nitrogen [Mass/Vol] 15 mg/dL Normal 7-25 [facility] Comment on above: Performed By: #### 7 18, 76255, 54031, 905, 6399, 622 #### [facility] of [place] [address] Can Marker: Napoleon Anne MD CBC (INCLUDES DIFF/PLT)on Basophils (Bld) [#/Vol] 0.043 10*3/uL Normal 0-200 [facility] Comment on above: Performed By: #### 7 18, 92285, 90041, 905, 6399, 622 #### [facility] of [place] [address] Can Marker: Napoleon Anne MD Basophils/100 WBC (Bld) 0.7 % Normal [facility] Comment on above: Performed By: #### 7 18, 89391, 43096, 905, 6399, 622 #### [facility] of [place] [address] Can Marker: Napoleon Anne MD Eosinophils (Bld) [#/Vol] 0.061 10*3/uL Normal 15-500 [facility] Comment on above: Performed By: #### 7 18, 08783, 30335, 905, 6399, 622 #### [facility] of [place] [address] Can Marker: Napoleon Anne MD Eosinophils/100 WBC (Bld) 1.0 % Normal [facility] Comment on above: Performed By: #### 7 18, 56843, 85141, 905, 6399, 622 #### [facility] of [place] [address] Can Marker: Napoleon Anne MD Erythrocyte distribution width (RBC) [Ratio] 14.7 % Normal 11.0-15.0 [facility] Comment on above: Performed By: #### 7 18, 84935, 64675, 905, 6399, 622 #### [facility] of [place] [address] Can Marker: Napoleon Anne MD Hematocrit (Bld) [Volume fraction] 41.5 % Normal 35.0-45.0 [facility] Comment on above: Performed By: #### 7 18, 20833, 73689, 905, 6399, 622 #### [facility] of [place] [address] Can Marker: Napoleon Anne MD Hemoglobin (Bld) [Mass/Vol] 13.5 g/dL Normal 11.7-15.5 [facility] Comment on above: Performed By: #### 7 18, 58684, 11985, 905, 6399, 622 #### [facility] [place] [address] Can Marker: Napoleon Anne MD Lymphocytes (Bld) [#/Vol] 1.928 10*3/uL Normal 850-3900 [facility] Comment on above: Performed By: #### 7 18, 57782, 12617, 905, 6399, 622 #### [facility] of [place] [address] Can Marker: Napoleon Anne MD Lymphocytes/100 WBC (Bld) 31.6 % Normal [facility] Comment on above: Performed By: #### 7 18, 63386, 36330, 905, 6399, 622 #### [facility] of [place] [address] Can Marker: Napoleon Anne MD MCH (RBC) [Entitic mass] 28.3 pg Normal 27.0-33.0 [facility] Comment on above: Performed By: #### 7 18, 14704, 94456, 905, 6399, 622 #### [facility] [place] [address] Can Marker: Napoleon Anne MD MCHC (RBC) [Mass/Vol] 32.5 g/dL Normal 32.0-36.[address] [facility] Comment on above: Performed By: #### 7 18, 90976, 26115, 905, 6399, 622 #### [facility] of [place] [address] Can Marker: Napoleon Anne MD MCV (RBC) [Entitic vol] 87.0 fL Normal 80.0-100.0 [facility] Comment on above: Performed By: #### 7 18, 78282, 02398, 905, 6399, 622 #### [facility] [place] [address] Can Marker: Napoleon Anne MD Monocytes (Bld) [#/Vol] 0.409 10*3/uL Normal 200-950 [facility] Comment on above: Performed By: #### 7 18, 45870, 01451, 905, 6399, 622 #### [facility] [place] [address] Can Marker: Napoleon Anne MD Monocytes/100 WBC (Bld) 6.7 % Normal [facility] Comment on above: Performed By: #### 7 18, 24767, 19421, 905, 6399, 622 #### [facility] of [place] [address] Can Marker: Napoleon Anne MD Neutrophils (Bld) [#/Vol] 3.66 10*3/uL Normal 2314-6101 [facility] Comment on above: Performed By: #### 7 18, 40863, 06261, 905, 6399, 622 #### [facility] of [place] [address] Can Marker: Napoleon Anne MD Neutrophils/100 WBC (Bld) 60 % Normal [facility] Comment on above: Performed By: #### 7 18, 48473, 37229, 905, 6399, 622 #### [facility] of [place] [address] Can Marker: Napoleon Anne MD Platelet mean volume (Bld) [Entitic vol] 10.5 fL Normal 7.5-12.5 [facility] Comment on above: Performed By: #### 7 18, 60206, 91477, 905, 6399, 622 #### [facility] of [place] [address] Can Marker: Napoleon Anne MD Platelets (Bld) [#/Vol] 307 10*3/uL Normal 140-400 [facility] Comment on above: Performed By: #### 7 18, 40065, 31377, 905, 6399, 622 #### [facility] of [place] [address] Can Marker: Napoleon Anne MD RBC (Bld) [#/Vol] 4.77 10*6/uL Normal 3.80-5.10 [facility] Comment on above: Performed By: #### 7 18, 63673, 00402, 905, 6399, 622 #### [facility] of [place] [address] Can Marker: Napoleon Anne MD WBC (Bld) [#/Vol] 6.1 10*3/uL Normal 3.8-10.8 [facility] Comment on above: Performed By: #### 7 18, 00074, 08387, 905, 6399, 622 #### [facility] of [place] [address] Can Marker: Napoleon Anne MD MAGNESIUMon 06-23-2021 Magnesium [Mass/Vol] 2.0 mg/dL Normal 1.5-2.5 [facility] Comment on above: Order Comment: FASTI NG:UNKNOWN FASTING: UNKNOWN Performed By: #### 7 18, 74086, 01827, 905, 6399, 622 #### [facility] [address], [address] [place] [address] Can Marker: Napoleon Anne MD PHOSPHATE ( PHOSPHORUS)on 06-23-2021 Phosphate [Mass/Vol] 3.8 mg/dL Normal 2.1-4.3 [facility] Comment on above: Performed By: #### 7 18, 62465, 37481, 905, 6399, 622 #### [facility] [address], [address] [place] [address] Can Marker: Napoleon Anne MD PTH, INTACT WITHOUT CALCIUMo [...] Normal High Performed By: #### 7 18, 28951, 21903, 905, 6399, 622 #### [facility] [address], [address] [place] [address] Can Marker: Napoleon Anne MD URIC ACIDon 06-23-2021 Urate [Mass/Vol] 4.8 mg/dL Normal 2.5-7.0 [facility] Comment on above: Result Comment: Ther apeutic target for gout patients: <6.0 mg/dL Performed By: #### 7 18, 63034, 70846, 905, 6399, 622 #### [facility] [address], [address] [place], [place] [id number] Can Marker: Napoleon Anne MD VITAMIN D,25-OH,TOTAL,IAon 1 0 VITAMIN D,25-OH,TOTAL,IA 26 ng/mL Low 30-100 [facility] Comment on above: Result Comment: Lanie min D Status 25-OH Vitamin D: Deficiency: <20 ng/mL Insufficiency: 20 - 29 ng/mL Optimal: > or = 30 ng/mL For 25-OH Vitamin D testing on patients on D2-supplementation and patients for whom quantitation of D2 and D3 fractions is required, the [facility]ure[facility](TM) 25-OH VIT D, (D2,D3), LC/MS/MS is recommended: order code 03941 (patients >2yrs). See Note 1 Note 1 For additional information, please refer to http://education.[employer]/faq/ORR912 (This link is being provided for informational/ educational purposes only.) Performed By: #### 7 18, 57106, 46147, 905, 5299, 622 #### [facility] [address], [address] [place], [place] [id number] Can Marker: Napoleon Anne MD Vital Signs Date Time Vital Sign Value Performing Clinician Facility 11-28-2023 09:01-0400 Body height 157.5 cm Kate ARCOS Work Phone: [facility] 11-28-2023 09:01-0400 Body mass index (BMI) [Ratio] 37.86 kg/m2 Kate ARCOS Work Phone: [facility] 11-28-2023 09:01-0400 Body temperature 98.01 [degF] Kate ARCOS Work Phone: [facility] 11-28-2023 09:01-0400 Body weight 93.89 kg Kate ARCOS Work Phone: [facility] 11-28-2023 09:01-0400 Diastolic blood pressure 70 mm[Hg] Kate ARCOS Work Phone: [facility] 11-28-2023 09:01-0400 Heart rate 119 /min Kate Thornton APRN-[employer] Work Phone: [facility] 11-28-2023 09:01-0400 Respiratory rate 18 /min Kate Thornton DIRECTOR IT PROJECT-[employer] Work Phone: [facility] 11-28-2023 09:01-0400 SaO2% (BldA) [Mass fraction] 95 % Kate Thornton DIRECTOR IT PRO[employer] Work Phone: [facility] 11-28-2023 09:01-0400 Systolic blood pressure 90 mm[Hg] Kate Thornton APRN-[employer] Work Phone: [facility] 11-07-2023 09:42-0500 Body height 157.48 cm [facility] 11-07-2023 09:42-0500 Body mass index (BMI) [Ratio] 37.5 kg/m2 [facility] 11-07-2023 09:42-0500 Body weight 92.98 kg [facility] 10-24-2023 11:23-0500 Diastolic blood pressure 97 mm[Hg] [facility] 10-24-2023 11:23-0500 Heart rate 107 /min [facility] 10-24-2023 11:23-0500 Respiratory rate 18 /min [facility] 10-24-2023 11:23-0500 SaO2% (BldA) [Mass fraction] 94 % [facility] 10-24-2023 11:23-0500 Systolic blood pressure 144 mm[Hg] [facility] 10-24-2023 11:19-0500 Body height 154.94 cm [facility] 10-24-2023 11:19-0500 Body weight 94.34 kg [facility] 10-03-2023 09:45-0500 Body height 154.94 cm Aldo Wynn Other [facility] 10-03-2023 09:45-0500 Body mass index (BMI) [Ratio] 39.3 kg/m2 Aldo Olexa Other [facility] Other 10-03-2023 09:45-0500 Body weight 94.35 kg Aldo Olexa Other [facility] Other 10-03-2023 09:45-0500 Body weight 94.34 kg [facility] 09-01-2022 12:45-0500 Body height 154.94 cm Tanna Paige Other [facility] Other 09-01-2022 12:45-0500 Body mass index (BMI) [Ratio] 40.24 kg/m2 Tanna Paige Other [facility] Other 09-01-2022 12:45-0500 Body weight 96.62 kg Tanna Paige Other [facility] Other 09-01-2022 12:45-0500 Diastolic blood pressure 75 mm[Hg] Tanna Paige Other [facility] Other 09-01-2022 12:45-0500 Respiratory rate 18 /min Tanna Paige Other [facility] Other 09-01-2022 12:45-0500 SaO2% (BldA) [Mass fraction] 96 % Tanna Paige Other [facility] Other 09-01-2022 12:45-0500 Systolic blood pressure 114 mm[Hg] Tanna Paige Other [facility] Other 09-28-2021 11:15-0500 Body height 154.94 cm Aldo Olexa Other [facility] Other 09-28-2021 11:15-0500 Body mass index (BMI) [Ratio] 41.75 kg/m2 Aldo Olexa Other [facility] Other 09-28-2021 11:15-0500 Body weight 100.25 kg Aldo Olexa Other [facility] Other 08-19-2021 10:30-0500 Body height 154.94 cm Aldo Olexa Other [facility] Other 08-19-2021 10:30-0500 Body mass index (BMI) [Ratio] 41.56 kg/m2 Aldo Olexa Other [facility] Other 08-19-2021 10:30-0500 Body weight 99.79 kg Aldo Olexa Other [facility] Other Encounters Encounter Date Encounter Type Care Provider Facility Start: 08-13-2024 End: 08-13-2024 Refill Mary Iftikhar [employer] [facility] Comment on above: Mixed hyperlipidemia Start: 07-10-2024 End: 07-22-2024 Telephone encounter [facility] Start: 02-01-2024 End: 02-02-2024 ambulatory [facility] Sydni [facility] Start: 02-01-2024 End: 02-01-[address] [facility] Start: 01-23-2024 End: 01-23-2024 Patient encounter procedure [facility] [address] Work Phone: Start: 01-23-2024 End: 01-23-2024 ambulatory NON STAFF [facility] Work Phone: Start: 12-07-2023 Orders Only Kate Thornton DIRECTOR IT PROJECT[employer] Work Phone: [facility] Comment on above: Erosive (osteo)arthr itis (Primary Dx) Start: 12-04-2023 End: 12-05-2023 ambulatory KATE THORNTON [facility] Start: 11-28-2023 End: 11-29-2023 Orders Only Kate Thornton DIRECTOR IT PRO[employer] Work Phone: [facility] Comment on above: Swelling of multiple joints (Primary Dx) Start: 11-28-2023 End: 11-28-2023 Office outpatient visit 25 minutes Kate Thornton DIRECTOR IT PRO[employer] [facility] Comment on above: Swelling of multiple joints (Primary Dx); Stage 3a chronic kidney disease (CMS-HCC); Palpitations Start: 11-21-2023 Refill Kate Thornton DIRECTOR IT PRO[employer] Work Phone: [facility] Comment on above: Mixed hyperlipidemia Start: 11-07-2023 End: 11-07-2023 Patient encounter procedure Counts Include [facility] Work Phone: Start: 10-24-2023 End: 10-24-2023 Patient encounter procedure [facility] [place] Work Phone: Start: 10-24-2023 End: 10-24-2023 ambulatory NON STAFF [facility] Work Phone: Start: 10-03-2023 Office outpatient vi sit 25 minutes Aldo Wynn [facility] Start: 10-03-2023 End: 10-03-2023 Patient encounter procedure [facility] Start: 10-03-2023 End: 10-03-2023 ambulatory NON STAFF [facility] Other Start: 10-03-2023 End: 10-03-2023 Patient encounter procedure Counts Include [facility]- Start: 08-07-2023 End: 08-07-2023 ambulatory JOSEFINA MELISSA Not Available Start: 09-01-2022 End: 09-01-2022 ambulatory Tanna Liuault Other [facility] Other Start: 09-01-2022 Office outpatient vi sit 15 minutes Tanna Liuault [facility] Start: 09-28-2021 End: 09-28-2021 ambulatory Aldo Olexa Other [facility] Other Start: 09-28-2021 Office outpatient vi sit 15 minutes Aldo Olexa [facility] Start: 08-19-2021 End: 08-19-2021 ambulatory Aldo Olexa Other [facility] Other Start: 08-19-2021 Office outpatient ne w 30 minutes Aldo Olexa [facility] Start: 10-29-2020 End: 10-30-2020 Patient encounter procedure NONE LISTED REQUEST Facility: Procedures Date Procedure Procedure Detail Performing Clinician Start: 02-01-2024 Follow-up visit Follow-up KATE THORNTON Start: 02-01-2024 Adult depression scr eening assessment Andres Meggan DO Work Phone: Start: 11-28-2023 Ecg routine ecg w/le ast 12 lds w/i&r Kate Thornton DIRECTOR IT PRO[employer] Work Phone: Start: 11-28-2023 Adult depression scr eening assessment Kate Thornton DIRECTOR IT PRO[employer] Work Phone: Start: 10-24-2023 MRI of right knee Start: 10-03-2023 X-ray of right knee Start: 05-12-2023 Mammography Kate Thornton DIRECTOR IT PRO[employer] Work Phone: Start: 03-20-2023 Adult depression scr eening assessment Kate Thornton DIRECTOR IT PROJECT[employer] Work Phone: Plan of Treatment Date Care Activity Detail Author Start: 05-12-2025 Screening for malign ant neoplasm of breast Mammogram [facility] Start: 01-31-2025 Adult BMI Screening Adult BMI Screen ing [facility] Start: 01-31-2025 Depression Screening Depression Scre ening [facility] Start: 01-31-2025 Fall Risk Screening Fall Risk Screen ing [facility] Start: 01-31-2025 Tobacco Screening Tobacco Screening [facility] Start: 11-27-2024 Adult BMI Screening Adult BMI Screen ing [facility] Start: 11-27-2024 Depression Screening Depression Scre ening [facility] Start: 11-27-2024 Fall Risk Screening Fall Risk Screen ing [facility] Start: 11-27-2024 Tobacco Screening Tobacco Screening [facility] Start: 10-03-2024 End: 10-03-2024 Patient encounter procedure 10/03/2024 1:00 PM EST [facility] [address] [place] [address] Andres Broderick DO [address], [facility] [place] [address] [facility] Start: 09-03-2024 End: 09-03-2024 Patient encounter procedure 09/03/2024 9:00 AM EST [facility] [address] [place] [address] [facility] Start: 06-02-2024 Adult BMI Screening Adult BMI Screen ing [facility] Start: 06-02-2024 Tobacco Screening Tobacco Screening [facility] Start: 03-20-2024 Depression Screening Depression Scre ening [facility] Start: 03-20-2024 Medicare Annual Well ness Visit Medicare Annual Wellness Visit [facility] Start: 03-18-2024 Fall Risk Screening Fall Risk Screen ing [facility] [employer] [facility] Start: 01-23-2024 [facility] Start: 11-28-2023 End: 11-27-2024 XR Hand - right 3 Views X-ray hand right minimum 3 views Imaging Routine Swelling of multiple joints Expected: 11/28/2023, Expires: 11/27/2024 [facility] Work Phone: Comment on above: Expected: 11/28/2023 , Expires: 11/27/2024 Start: 01-24-2013 DTaP,Tdap and Td Vac cines (1 - Tdap) DTaP,Tdap and Td Vaccines (1 - Tdap) [facility] Start: 2001 Administration of varicella zoster vaccine Zoster (Shingles) Vaccine (1 of 2) [facility] Start: 1969 Adult BMI Follow Up Plan Adult BMI Follow Up Plan [facility] POCT EKG POCT EKG ECG Rou ivone Palpitations 11/28/2023 10:12 AM EDT [employer] Work Phone: Immunizations Immunization Date Immunization Notes Care Provider Anel canales 07-21-2022 Covid-19, Mrna, Lnp- s, Bivalent, Pf, 50mcg/0.5ml or 25mcg/0.25ml Kate Thornton DIRECTOR IT PROJECT-[employer] Work Phone: [facility] 07-21-2022 SARS-COV-2 (COVID-19 ) Vaccine, Unspecified Kate Thornton DIRECTOR IT PROJECT[employer] Work Phone: [facility] 06-29-2021 Influenza Vaccine, Quadrivalent, Adjuvanted Kate Thornton DIRECTOR IT PROJECT-[employer] Work Phone: [facility] 11-03-2020 COVID-19, mRNA, LNP- S, PF, 30mcg/0.3mL Dose Kate Thornton DIRECTOR IT PROJECT[employer] Work Phone: [facility] 10-29-2020 COVID-19, mRNA, LNP- S, PF, 100mcg/0.5mL Dose Kate Thornton DIRECTOR IT PROJECT[employer] Work Phone: [facility] 06-02-2020 Influenza Vaccine, Quadrivalent, Adjuvanted Kate Thornton DIRECTOR IT PROJECT-[employer] Work Phone: [facility] 07-18-2018 Influenza, injectabl e, Madin Driscoll Canine Kidney, preservative free, quadrivalent Kate Jenna DIRECTOR IT PROJECT[employer] Work Phone: [facility] 07-18-2018 pneumococcal polysaccharide vaccine, 23 valent Kate Thornton DIRECTOR IT PRO[employer] Work Phone: [facility] 02-13-2017 pneumococcal conjuga te vaccine, 13 valent Kate Thornton DIRECTOR IT PRO[employer] Work Phone: [facility] 01-23-2013 TD(adult) unspecifie d formulation Kate Thornton DIRECTOR IT PROJECT[employer] Work Phone: [facility] Payers Date Payer Category Payer Medicare [id number] 2022 Medicare AETNA MEDICARE A ETNA MEDICARE PLAN (PPO) [id number] 2022-Present [phone] [address] [place] [address] [id number] 2022 Medicare HMO [employer] MEDICARE [id number] 1959 Self-pay 1950 Unknown [id number]. 9 1950 Unknown [id number]. 1259 1950 Unknown [id number] [id number]. 1286 1950 Unknown [id number] 2.16.840.1.731677.3.579.2. 1286 1950 Unknown [id number] 2.16.840.1.099595.3.579.2. 1286 1950 Unknown [id number] 2.16.840.1.273566.3.579.2. 1286 1950 Unknown [id number] 2.16.840.1.749691.3.579.2. 1286 Private Health Insurance EBM [id number] Unknown [id number] 2.16.840.1.172911.3.579.2. 593 Unknown [id number] 2.16.840.1.026275.3.579.2. 531 Unknown [id number] 2.16.840.1.285573.3.579.2. 531 Unknown [id number] [id number]. 531 Social History Date Type Detail Facility Start: 10-15-2020 End: 06-02-2023 Sex Assigned At [facility] Start: 08-17-2021 End: 11-28-2023 Tobacco smoking status NHIS Never smoked tobacco (finding) [facility] Start: 1950 Sex Assigned At Female [facility] Start: 09-20-2019 End: 11-28-2023 Tobacco use and exposure Smokeless tobacco non-user [facility] Start: 06-02-2023 End: 02-01-2024 Alcohol intake Current drinker of alcohol (finding) [facility] Start: 10-15-2020 End: 06-02-2023 History of Social function [facility] Adolescent depressio n screening assessment 0 [facility] Start: 09-20-2019 Alcohol Comment Social/occasional [facility] Start: 1950 Sex Assigned At Not on file P [facility] Start: 04-09-2015 Sex Female (finding) [facility] Clinical Notes 12-04-2014 to 08-13-2024 Telephone Encounter - Andres Broderick DO - 08/13/2024 9:33 AM ESTTelephone Encounter - Pietro Levy CMA - 08/13/2024 9:33 AM ESTTelephone Encounter - Jennifer Ventura - 07/10/2024 2:44 PM EST Note Date & Type Note Facility 08-13-2024 Miscellaneous Notes Formattin g of this note might be different from the original. Rx sent in. She is due for a CV visit and Medicare wellness Scheduled documented in this encounter [facility] 08-13-2024 Telephone encount er Note Rx sent in. She is due for a CV visit and Medicare wellness [facility] 08-13-2024 Telephone encount er Note Scheduled [facility] 07-10-2024 Miscellaneous Notes Formattin g of this note might be different from the original. ----- Message from JOSSELYN Babcock sent at 02/01/2024 1:08 PM EDT ----- Regarding: cv Due late jul, early aug 27 with fasting labs LM on VM LM on VM LM on VM/ called 3 times documented in this encounter [facility] 07-10-2024 Telephone encount er Note ----- Message from JOSSELYN Babcock sent at 02/01/2024 1:08 PM EDT ----- Regarding: cv Due late jul, early aug 27 with fasting labs [facility] 07-10-2024 Telephone encount er Note LM on VM [facility] 07-10-2024 Telephone encount er Note LM on VM [facility] 07-10-2024 Telephone encount er Note LM on VM/ [facility] [employer] [facility] 11-28-2023 History of Presen t illness Narrative Subjective Patient ID: Lisa Cochran [...] acid; Future Stage 3a chronic kidney disease ([facility]) - Comprehensive metabolic panel; Future - Magnesium; [...] Gomez 11/28/23 1217 documented in this encounter [facility] 11-28-2023 Evaluation note Diagnosis Swelling of multiple joints- Primary Stage 3a chronic kidney disease ([facility]) Palpitations documented in this encounter [facility]01-30-2024 Evaluation note* Encounter Date Diagnosis Assessment [...] pain of right knee (ICD-10 - M25.561) [facility] 12-29-2022 Evaluation note* Encounter Date Diagnosis [...] care provider if no improvement of symptoms. [facility] 01-25-2022 Evaluation note* Encounter Date Diagnosis [...] derangement of left knee (ICD-10 - M23.92) [facility] Other 12-16-2021 Evaluation note* Encounter Date Diagnosis [...] derangement of left knee (ICD-10 - M23.92) [facility] Other 04-02-2015 History general Narrative - Reported* Type Description Date Medical History HTN Medical History Hyperlipidemia Medical History Basal Cell carcinoma of scalp Surgical History basal cell carcinoma of scalp ( Dr Llanos) 12/04/14 [facility] Other Evaluation noteNo assessment information available [facility] Work Phone: Evaluation note* Diagnosis Mixed hyperlipidemia [facility] Swelling of multiple joints- Primary [facility] Diagnosis Erosive (osteo)arthritis- Primary [facility] Diagnosis Erosive (osteo)arthritis- Primary [facility] Diagnosis Onset Date Resolution Status Acute medial meniscus tear of right knee acute Arthritis of right knee [facility] Work Phone: Evaluation note* Diagnosis Mixed hyperlipidemia documented in [facility] filedocumented in this encounter [facility]Not on filedocumented in this encounter [facility]Not on filedocumented in this encounter [facility]Not on filedocumented in this encounter [facility]Not on filedocumented in this encounter [facility] SystemInstructionsNot on filedocumented in this encounter [facility]ative)* Consultation (Routine) - Pending Review Specialty Diagnoses / Procedures Referred By Boyd kennedy Referred To Contact Rheumatology Diagnoses Erosive (osteo)arthritis Kate Thornton APRN-FNP [address] [place] [address] Dax Coello MD [address] [place] [address] Referral ID Status Reason Start Date Expiration Date Visits Requested Visits Authorized [id number] Pending Review Specialty Services Required 12/07/2023 12/06/2024 1 1 [facility] Summary Purpose Family History Relationship Condition Age at Onset Recorded Date/T bruce father Hypertension Unknown Heart disease Unknown Unknown Not Specified Unknown Hypertension Unknown natural son Malignant neoplasm Unknown Advance Directives Advance Directive Response Recorded Date/ Time Advance Directives No August 8:21pm Advance Directive Response Recorded Date/ Time Advance Directives No August 9:21pm Chief Complaint and Reason for Visit Chief Complaint 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 N x M25.561 M17.11 Chief Complaint MRI RESULTS r31.29 Reason for Visit Acute medial meniscu s tear of right knee Arthritis of right knee Additional Source Comments INFORMATION SOURCE (unrecogn ized section and content) DATE CREATED AUTHOR 10/27/2020 [facility] DATE CREATED AUTHOR AUTHOR'S ORGANIZ ATION 12/15/2021 [facility] DATE CREATED AUTHOR AUTHOR'S ORGANIZ ATION 08/08/2023 [facility] EPIC DATE CREATED AUTHOR AUTHOR'S ORGANIZ ATION 12/05/2023 [facility] DATE CREATED AUTHOR AUTHOR'S ORGANIZ ATION 02/02/2024 [facility] DATE CREATED AUTHOR AUTHOR'S ORGANIZ ATION 02/02/2024 [facility] DATE CREATED AUTHOR AUTHOR'S ORGANIZ ATION 02/06/2024 [facility] REASON FOR VISIT (unrecogniz ed section and content) Reason Comments Med Refill Reason Comments swallen finger ,toes hands thighs Reason Onset Date Comments Med Refill 08/13/2024 Care Teams (unrecognized sec tion and content) [...] October 24, 2023 End: October 24, 2023 Row Boss Hoeing Relationship Specialty Start Date End Date Kate Thornton APRN-[employer] [address] [place] [address] PCP - General Family Medicine 08/01/18 Row [employer] Hoeing Relationship Specialty Start Date End Date Kate Thornton APRN-[employer] [address] [place] [address] PCP - General Family Medicine 08/01/18 Row Boss Hoeing Relationship Specialty Start Date End Date Kate Thornton, DIRECTOR IT PROJECT[employer] [address] [id number] PCP - General Family Medicine 08/01/18 Team [...] BE BASED ON THE PRIMARY CLINICAL RECORDS. [employer] provides no warranty or guarantee of the accuracy or completeness of information in this document.
[2024-09-02 10:58] LABS: Basophils Absolute Auto 0.1 10^3/uL (0.0-0.1); Basophils Percent Auto 0.9 % (0.2-2.0); Eosinophils Absolute Auto 0.3 10^3/uL (0.0-0.7); Hematocrit 41.6 % (36.0-48.0); Hemoglobin 13.1 g/dL (12.0-16.0); Immature Granulocytes Abs Auto 0.01 10^3/uL (0.00-0.03); Immature Granulocytes Pct Auto 0.2 % (0.0-0.5); Lymphocytes Absolute Auto 1.7 10^3/uL (1.2-3.8); Lymphocytes Percent Auto 26.3 % (20.5-60.0); Mean Corpuscular HGB Conc 31.5 g/dL (29.9-35.2); Mean Corpuscular Volume 88.9 fL (81.0-99.0); Mean Platelet Volume 10.1 fL (9.5-13.5); Monocytes Absolute Auto 0.7 10^3/uL (0.3-0.8); Monocytes Percent Auto 10.1 % (1.7-12.0); Neutrophils Absolute Auto 3.8 10^3/uL (1.4-6.5); Neutrophils Percent Auto 58.5 % (43.0-75.0); Platelet Count 328 10^3/uL (150-450); Red Blood Count 4.68 10^6/uL (4.20-5.40); Red Cell Distribution Width 13.7 % (11.0-15.0); White Blood Count 6.4 10^3/uL (4.0-11.0)
[2024-09-02 11:18] LABS: Alanine Aminotransferase 19 U/L (14-59); Albumin Globulin Ratio 0.8; Alkaline Phosphatase 137 U/L (46-116); Anion Gap 13.2; Aspartate Amino Transferase 21 U/L (15-37); BUN Creatinine Ratio 14.2; Bilirubin Total 0.4 mg/dL (0.2-1.0); Calcium 8.9 mg/dL (8.5-10.1); Carbon Dioxide 26.9 mmol/L (21.0-32.0); Chloride 106 mmol/L (98-107); Estimated GFR (African America 57 (>=60 mL/min/1.73m^2); Estimated GFR (Non-African Ame 47 (>=60 mL/min/1.73m^2); Glucose 91 mg/dL (74-106); Potassium 4.1 mmol/L (3.5-5.1); Sodium 142 mmol/L (136-145)
[2024-09-02 11:44] LABS: Erythrocyte Sedimentation Rate 90 mm/hr (<=30)
== END 2024-09-02 10:34 | disposition home or self-care (01) ==
LOC: LAB 10:35
PROVIDERS: PCP Family Medicine; Visit Provider Internal Medicine Rheumatology
DX: M06.9 Rheumatoid arthritis, unspecified (principal); M19.90 Unspecified osteoarthritis, unspecified site; Z51.81 Encounter for therapeutic drug level monitoring
CPT/HCPCS: 36415; 80053; 85025; 85652

== ENCOUNTER 2024-09-20 10:18 | Outpatient (OUT) | payer MEDICARE, SELFPAY ==
--- NOTE | 2024-09-20 10:24 | XR_ITS ---
[address] [address] Patient Name: AVERY GOMEZ MRN: [id number] date: 1950 Sex: F Assigned Patient Location: [facility] Current Patient Location: [facility] Accession/Order Number: [id number] Exam Date: 09/20/2024 10:28 Report Date: 09/22/2024 09:45 At the request of: PHYLICIA ANDERS Procedure: XR chest 2V Chest x-rays, 09/20/2024. HISTORY: Rheumatoid arthritis. Immunosuppression medication. COMPARISON: None. FINDINGS: 2 views of the chest obtained. Heart size normal. Mediastinal contours are normal. No pleural effusion. No pneumothorax. No pulmonary edema. No evidence of interstitial fibrosis. XR/XR chest 2V IMPRESSION: Lungs are clear. No evidence of interstitial fibrosis. No acute findings. Electronically authenticated by: SUNI TONEY Date: 09/22/2024 09:45
--- OUTSIDE RECORDS SUMMARY | 2024-09-20 10:27 | XMS_ITS | CCD ---
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 Role Phone REQUEST, NONE LISTED Attending Unavailable REQUEST, NONE LISTED Consulting Unavailable REQUEST, NONE LISTED Admitting Unavailable KUNS, KATE R Primary Care Unavailable Aldo Wynn Unavailable Tanna Paige Unavailable JOSEFINA MELISSA Attending Unavailable NON STAFF Primary Care Provider MD Aldo Rodriguez Attending Provider [place] [employer] DIRECTORKate Primary Care Provider KATE THORNTON Referring Unavailable KUNS, ZAYRA Primary Care Unavailable NON STAFF Primary Care Provider MD Dax Khalil Attending Provider [phone] KATE THORNTON Attending Unavailable KUNS, ZAYRA Referring Unavailable KUNS, ZAYRA Primary Care Unavailable KUNSKATEZAYRA Attending Unavailable KUNS, ZAYRA Referring Unavailable KUNS, ZAYRA Primary Care [...] Unavailable Unavailable Primary Care Provider Unavaillitzy arenas NON STAFF Primary Care Provider Dax Khalil MD Attending Provider Allergies Allergy Classification Reported Allergen(s) Allergy Type Date of Onset Reaction(s) Facility (4 sources) Amino Acids; Translations: [LISINOPRIL] Drug Allergy 09-20-[address] [facility] Repository (11 sources) Lisinopril Drug Allergy 09-20-2019 Angioedema [facility] Work Phone: (1 source) Lisinopril Drug Allergy 11-07-2023 [facility] Repository Medications Current Medications Medication Drug [...] day Active amLODIPine 10 mg oral tablet (15 sources) Dihydropyridine Calcium Channel Ariana Start: 05-11-2023 End: 08-13-2024 take 1 tablet by mouth once daily in the morning amLODIPine (NORVASC) 10 mg tablet Take 1 tablet (10 mg total) by mouth every morning. 90 tablet 1 08/13/2024 Active Aspir-81 81 MG (4 sources) take 1 tablet by mouth once daily Aspir-81 81 MG 1 tablet Orally Once a day Active aspirin 81 mg delayed release oral tablet (9 sources) Platelet Aggregation Inhibitor, Nonsteroidal Anti-inflammatory Drug Start: 11-07-2023 take 1 tablet by mouth once daily Aspirin 81 mg tablet,delayed release (DR/EC) Active 81 MG PO Daily November 07, 2023 12:00am FreeTextSi tablet Orally Once a day; Note: Source Status: Taking; Provider: Tianna Carlson ( ) cholecalciferol 0.025 mg oral capsule (7 sources) Vitamin D cholecalciferol , vitamin D3, 25 mcg (1,000 unit) capsule daily. Active FLUoxetine 20 mg oral capsule (15 sources) Serotonin Reuptake Inhibitor Start: 02-07-2024 End: 08-13-2024 take 1 capsule by mouth in the morning FLUoxetine (PROzac) 20 mg capsule Take 1 capsule (20 mg total) by mouth in the morning. 90 capsule 08/13/2024 Active Start: 11-07-2023 take 1 capsule by mo ut once daily in the morning Fluoxetine 10 mg capsule Active 10 MG PO Daily November 07, 2023 12:00am FreeTextSi capsule in the morning Orally Once a day; Note: Source Status: Taking; Provider: Tianna Carlson ( ) Start: 02-28-2023 End: 11-21-2023 take 1 capsule by mouth in the morning FLUoxetine (PROzac) 20 mg capsule take 1 capsule by mouth in the morning 90 capsule 0 11/21/2023 Active take 1 capsule by mo ut every twenty-four hours FLUoxetine HCl 10 MG 1 capsule in the morning Orally Once a day Active take 1 capsule by mo uth once daily in the morning FLUoxetine HCl 10 MG 1 capsule in the morning Orally Once a day Active tmtgdpsruupx-zpcy-aqrlc acid (CENTRUM) 18-400 mg-mcg tablet (6 sources) take 1 tablet by mouth in the morning hmuknriqqhsk-raul-dpfpp acid (CENTRUM) 18-400 mg-mcg tablet Take 1 tablet by mouth in the morning. Active take 1 tablet by mele th in the morning sutrujeoxbhn-mbsf-klkeb acid (CENTRUM) 1 8-400 mg-mcg tablet Take [...] Active rosuvastatin calcium 20 mg oral tablet (15 sources) HMG-CoA Reductase Inhibitor Start: 05-11-2023 End: 08-13-2024 take 1 tablet by mouth in the morning rosuvastatin (CRESTOR) 20 mg tablet Indications: Mixed hyperlipidemia Take 1 tablet (20 mg total) by mouth in the morning. 90 tablet 08/13/2024 Active Completed/Discontinued Medications Medication Drug Class(es) Dates Sig [...] Active traMADol hydrochloride 50 mg oral tablet (8 sources) Opioid Agonist Start: 08-17-2021 End: 11-07-2023 take 1 tablet by mouth four times daily as needed for pain Tramadol (Ultram) 50 mg tablet Discontinued 50 MG PO Four times daily as needed for pain 08 06August 17, 2021 12:00am November 07, 2023 9:40am take 1 tablet by mele th every [...] knee] Chronic Joint disorders and dislocations; trauma-related (3 sources) Acute meniscal tear, medial; Translations: [Other tear of medial meniscus, current injury, right knee, initial encounter] 11-03-2023 Episodic Mood disorders (7 sources) Depressive disorder; Translations: [Depressive disorder] Onset: 02-11-2016 07-06-2022 Chronic Nutritional deficiencies (7 sources) Vitamin D deficiency; Translations: [Vitamin D deficiency, unspecified] Onset: 06-23-2021 07-18-2022 Chronic Osteoarthritis (19 sources) Arthritis of left knee; Translations: [Unilateral [...] media, unspecified, bilateral Episodic Sprains and strains (4 sources) Sprain of knee; Translations: [Sprain of unspecified site of left knee, initial encounter] 08-16-2023 Episodic Comment on above: Problem List clean-u p per request of Phys. EHR Cmte Unclassified (1 source) swallen finger ,toes hands [...] Interpretation Reference Range Facility COMPREHENSIVE METABOLIC PANE [facility] 02-01-2024 Albumin [Mass/Vol] 4.0 g/dL Normal 3.2-5.3 [facility] Comment on above: Performed By: #### Pete VINES 72348-0 #### [facility] ([id number]) [address], [address] [place] [address] ALP [Catalytic activity/Vol] 103 U/L Normal 39-130 [facility] Comment on above: Performed By: #### Pete VINES, 41530-4 #### [facility] ([id number]) [address], [address] [place] [address] ALT [Catalytic activity/Vol] 15 U/L Normal 0-31 [facility] Comment on above: Performed By: #### Pete VINES, 26923-1 #### [facility] ([id number]) [address], [address] [place] [address] Anion gap [Moles/Vol] 10 mmol/L Normal 5-15 [facility] Comment on above: Performed By: #### Pete VINES, 38674-1 #### [facility] ([id number]) [address], [address] [place] [address] AST [Catalytic activity/Vol] 15 U/L Normal 0-41 [facility] Comment on above: Performed By: #### Pete VINES, 54837-6 #### [facility] ([id number]) [address], [address] [place] [address] Bilirubin [Mass/Vol] 0.4 mg/dL Normal 0.3-1.2 [facility] Comment on above: Performed By: #### Pete VINES, 12833-3 #### [facility] ([id number]) [address], [address] [place] [address] Calcium [Mass/Vol] 8.9 mg/dL Normal 8.5-10.5 [facility] Comment on above: Performed By: #### Pete VINES, 94505-2 #### [facility] ([id number]) [address], [address] [place] [address] Chloride [Moles/Vol] 105 mmol/L Normal 98-109 [facility] Comment on above: Performed By: #### Pete VINES, 18169-8 #### [facility] ([id number]) [address], [address] [place] [address] CO2 [Moles/Vol] 24 mmol/L Normal 22-32 [facility] Comment on above: Performed By: #### Pete VINES, 46812-6 #### [facility] ([id number]) [address] [address] [place] [address] Creatinine [Mass/Vol] 1.00 mg/dL Normal 0.40-1.00 [facility] Comment on above: Result Comment: METH OD TRACEABLE TO IDMS STANDARD Performed By: #### Pete VINES, 30340-9 #### [facility] ([id number]) [address], [address] [place] [address] GFR/1.73 sq M.predicted among non-blacks MDRD (S/P/Bld) [Vol rate/Area] 60 mL/min/{1.73_m2} Normal >59 [facility] Comment on above: Result Comment: Reported eGFR is based on the CKD-EPI 2020 equation that does not use a race coefficient. Performed By: #### Pete VINES, 44923-4 #### [facility] ([id number]) [address], [address] [place] [address] Glucose [Mass/Vol] 100 mg/dL High 65-99 [facility] Comment on above: Performed By: #### Pete VINES, 11696-5 #### [facility] ([id number]) [address], [address] [place] [address] Potassium [Moles/Vol] 4.3 mmol/L Normal 3.5-5.0 [facility] Comment on above: Performed By: #### Pete VINES, 66003-4 #### [facility] ([id number]) [address], [address] [place] [address] Protein [Mass/Vol] 7.6 g/dL Normal 6.0-8.0 [facility] Comment on above: Performed By: #### Pete VINES, 13041-0 #### [facility] ([id number]) [address], [address] [place] [address] Sodium [Moles/Vol] 139 mmol/L Normal 134-146 [facility] Comment on above: Performed By: #### Pete VINES, 88428-2 #### [facility] ([id number]) [address], [address] [place] [address] Urea nitrogen [Mass/Vol] 21 mg/dL Normal 5-27 [facility] Comment on above: Performed By: #### Pete VINES, 62878-4 #### [facility] ([id number]) [address], [address] [place] [address] Lipid 1996 panelon 4 Cholesterol [Mass/Vol] 189 mg/dL Normal 150-200 [facility] Comment on above: Performed By: #### Pete VINES, 15671-6 #### [facility] ([id number]) [address], [address] [place] [address] Cholesterol in HDL [Mass/Vol] 65 mg/dL Normal >39 [facility] Comment on above: Result Comment: HDL <40 mg/dL - High Risk HDL > or = 40mg/dL- Desirable HDL >60 mg/dL - Negative Risk Performed By: #### Pete VINES, 72571-3 #### [facility] ([id number]) [address], [address] [place] [address] Cholesterol in LDL [Mass/Vol] 106 mg/dL Normal <130 [facility] Comment on above: Result Comment: LDL <100 mg/dL - Desirable LDL >160 mg/dL - High Risk Performed By: #### Pete VINES, 87564-2 #### [facility] ([id number]) [address], [address] [place] [address] Cholesterol in VLDL [Mass/Vol] 18 mg/dL Normal 0-30 [facility] Comment on above: Performed By: #### Pete VINES, 08288-3 #### [facility] ([id number]) [address], [address] [place] [address] CHOLESTEROL:HDL 2.9 Normal 1.0-5.0 [facility] Comment on above: Performed By: #### Pete VINES, 89359-0 #### [facility] ([id number]) [address], [address] [place] [address] Triglyceride [Mass/Vol] 91 mg/dL Normal 27-150 [facility] Comment on above: Performed By: #### C , 87643-5 #### [facility] ([id number]) [address] [place] [address], [address] [place] [address] MANUEL Antinuclear Antibodieson 01-23-2024 Antinuclear Abs, IFA Negative Normal . [facility] Comment on above: Result Comment: Nega tive <1:80 Borderline 1:80 Positive >1:80 ICAP nomenclature: AC-0 For more information about Hep-2 cell patterns use ANApatterns.org, the official website for the International Consensus on Antinuclear Antibody (MANUEL) Patterns (ICAP). Performed at: - [facility] [id number] Agricultural Education Professor: Sly Mack PhD, Phone: [phone] PERFORMED BY: [place] [address] PATHOLOGIST RN HEMODIALYSIS CHARGE AYO CRUZ M.D. Performed By: #### A LDOLASE, MANUEL #### [facility] , #### CK, CMP, CRP, T4F, TSH3, CBC, ESR #### [facility] [address] [place] [address] [place] Alanine aminotransferase [En zymatic activity/volume] in Serum or PlasmaOrdered By: Dax Coello on 01-23-2024 ALT [Catalytic activity/Vol] 24 U/L Normal 7-52 [facility] Comment on above: Performed By: #### A LDOLASE, MANUEL #### [facility] , #### CK, CMP, CRP, T4F, TSH3, CBC, ESR #### [facility] [address] [place] [address] [place] Albumin [Mass/volume] in Ser um or Plasma by Bromocresol green (BCG) dye binding methoOrdered By: Dax Coello on 01-23-2024 Albumin BCG dye [Mass/Vol] 4.3 g/dL 3.5-5.7 [facility] Aldolaseon 01-23-2024 Aldolase 3.3 U/L Normal 3.3-10.3 [facility] Comment on above: Result Comment: Perf ormed at: - [facility] [address] [id number] Agricultural Education Professor: Sly Mack PhD, Phone: [phone] PERFORMED BY: [place] [address] PATHOLOGIST RN HEMODIALYSIS CHARGE AYO CRUZ M.D. Performed By: #### A LDOLASE, MANUEL #### [facility] , #### CK, CMP, CRP, T4F, TSH3, CBC, ESR #### [address] Alkaline phosphatase [Enzyma tic activity/volume] in Serum or PlasmaOrdered By: Dax Coello on 01-23-2024 ALP [Catalytic activity/Vol] 119 U/L High 34-104 [facility] Comment on above: Performed By: #### A LDOLASE, MANUEL #### [facility] , #### CK, CMP, CRP, T4F, TSH3, CBC, ESR #### [facility] [address] [place] [address] Aspartate aminotransferase [ Enzymatic activity/volume] in Serum or PlasmaOrdered By: Dax Coello on 01-23-2024 AST [Catalytic activity/Vol] 30 U/L Normal 13-39 [facility] Comment on above: Performed By: #### A LDOLASE, MANUEL #### [facility] , #### CK, CMP, CRP, T4F, TSH3, CBC, ESR #### [facility] [address] [place] [address] Automated basophil %Ordered By: Dax Ceollo on 01-23-2024 Basophils/100 WBC (Bld) 0.9 % Normal . [facility] Comment on above: Performed By: #### A LDOLASE, MANUEL #### [facility] , #### CK, CMP, CRP, T4F, TSH3, CBC, ESR #### [facility] [address] [place] [address] [place] Automated basophil countOrde red By: Dax Coello on 01-23-2024 Basophils (Bld) [#/Vol] 0.1 10*3/uL Normal 0.0-0.2 [facility] Comment on above: Performed By: #### A LDOLASE, MANUEL #### [facility] , #### CK, CMP, CRP, T4F, TSH3, CBC, ESR #### [address] Automated blood monocyte cou ntOrdered By: Dax Coello on 01-23-2024 Monocytes (Bld) [#/Vol] 0.5 10*3/uL Normal 0.0-0.8 [facility] Comment on above: Performed By: #### A LDOLASE, MANUEL #### [facility] , #### CK, CMP, CRP, T4F, TSH3, CBC, ESR #### [address] Automated eosinophil %Ordere d By: Dax Coello on 01-23-2024 Eosinophils/100 WBC (Bld) 2.4 % Normal . [facility] Comment on above: Performed By: #### A LDOLASE, MANUEL #### [facility] , #### CK, CMP, CRP, T4F, TSH3, CBC, ESR #### [address] Automated eosinophil countOr dered By: Dax Coello on 01-23-2024 Eosinophils (Bld) [#/Vol] 0.2 10*3/uL Normal 0.0-0.45 [facility] Comment on above: Performed By: #### A LDOLASE, MANUEL #### [facility] , #### CK, CMP, CRP, T4F, TSH3, CBC, ESR #### [address] Automated monocyte %Ordered By: Dax Vergararow on 01-23-2024 Monocytes/100 WBC (Bld) 6.8 % Normal . [facility] Comment on above: Performed By: #### A LDOLASE, MANUEL #### [facility] , #### CK, CMP, CRP, T4F, TSH3, CBC, ESR #### [address] Automated neutrophil %Ordere d By: Dax Coello on 01-23-2024 Neutrophils/100 WBC (Bld) 61.7 % Normal . [facility] Comment on above: Performed By: #### A LDOLASE, MANUEL #### [facility] , #### CK, CMP, CRP, T4F, TSH3, CBC, ESR #### [facility] [address] [place] [address] Bilirubin.total [Mass/volume ] in Serum or PlasmaOrdered By: Dax Coello on 01-23-2024 Bilirubin [Mass/Vol] 0.5 mg/dL Normal 0.3-1.[address] [facility] Comment on above: Performed By: #### A LDOLASE, MANUEL #### [facility] , #### CK, CMP, CRP, T4F, TSH3, CBC, ESR #### [facility] [address] [place] [address] C reactive protein [Mass/vol ume] in Serum or PlasmaOrdered By: Dxa Coello on 01-23-2024 CRP [Mass/Vol] 1.0 mg/dL 0.0-0.5 [facility] C-Reactive Proteinon 024 C-Reactive Protein 1.0 mg/dL High 0.0-0.5 [facility] Comment on above: Performed By: #### A LDOLASE, MANUEL #### [facility] , #### CK, CMP, CRP, T4F, TSH3, CBC, ESR #### [address] Calcium [Mass/volume] in Ser um or PlasmaOrdered By: Dax Coello on 01-23-2024 Calcium [Mass/Vol] 9.6 mg/dL Normal 8.6-10.3 [facility] Comment on above: Performed By: #### A LDOLASE, MANUEL #### [facility] , #### CK, CMP, CRP, T4F, TSH3, CBC, ESR #### [address] Carbon dioxide, total [Moles /volume] in Serum or PlasmaOrdered By: Dax Coello on 01-23-2024 CO2 [Moles/Vol] 25.5 mmol/L Normal 21.0-31.0 [facility] Comment on above: Performed By: #### A LDOLASE, MANUEL #### [facility] , #### CK, CMP, CRP, T4F, TSH3, CBC, ESR #### [address] Chloride [Moles/volume] in S beatris or PlasmaOrdered By: Dax Coello on 01-23-2024 Chloride [Moles/Vol] 107 mmol/L Normal 98-[address] [facility] Comment on above: Performed By: #### A LDOLASE, MANUEL #### [facility] , #### CK, CMP, CRP, T4F, TSH3, CBC, ESR #### [address] Complete Blood Count Auto Di ffon 01-23-2024 Mean Corpuscular HGB Conc 33.2 g/dL Normal 32.0-35.0 [facility] Comment on above: Performed By: #### A LDOLASE, MANUEL #### [facility] , #### CK, CMP, CRP, T4F, TSH3, CBC, ESR #### [facility] [address] [place] [address] NRBC% 0.2 /100{WBC} Normal 0-0.[address] [facility] Comment on above: Performed By: #### A LDOLASE, MANUEL #### [facility] , #### CK, CMP, CRP, T4F, TSH3, CBC, ESR #### [address] Comprehensive Metabolic Pane bijan 01-23-2024 Albumin [Mass/Vol] 4.3 g/dL Normal 3.5-5.7 [facility] Comment on above: Performed By: #### A LDOLASE, MANUEL #### [facility] , #### CK, CMP, CRP, T4F, TSH3, CBC, ESR #### [address] GFR/1.73 sq M.predicted MDRD (S/P/Bld) [Vol rate/Area] 47.618 mL/min/{1.73_m2} Normal [facility] Comment on above: Performed By: #### A LDOLASE, MANUEL #### [facility] , #### CK, CMP, CRP, T4F, TSH3, CBC, ESR #### [address] Creatine kinase [Enzymatic a ctivity/volume] in Serum or PlasmaOrdered By: Dax Coello on 01-23-2024 CK [Catalytic activity/Vol] 69 U/L Normal 30-223 [facility] Comment on above: Result Comment: PERF ORMED BY: [place] [address] PATHOLOGIST RN HEMODIALYSIS CHARGE AYO CRUZ M.D. Performed By: #### A LDOLASE, MANUEL #### [facility] , #### CK, CMP, CRP, T4F, TSH3, CBC, ESR #### [place] [address] [place] Creatinine [Mass/volume] in Serum or PlasmaOrdered By: Dax Coello on 01-23-2024 Creatinine [Mass/Vol] 1.21 mg/dL High 0.60-1.20 [facility] Comment on above: Performed By: #### A LDOLASE, MANUEL #### [facility] , #### CK, CMP, CRP, T4F, TSH3, CBC, ESR #### [facility] [address] [place] [address] Erythrocyte Sedimentation Ra solo 01-23-2024 ESR (Bld) [Velocity] 58 mm/h High 0-29 [facility] Comment on above: Result Comment: PERF ORMED BY: [place] [address] PATHOLOGIST RN HEMODIALYSIS CHARGE AYO CRUZ M.D. Performed By: #### A LDOLASE, MANUEL #### [facility] , #### CK, CMP, CRP, T4F, TSH3, CBC, ESR #### [address] Erythrocyte distribution wid th [Ratio] by Automated countOrdered By: Dax Coello on 01-23-2024 Erythrocyte distribution width (RBC) [Ratio] 15.3 % Normal 11.9-15.3 [facility] Comment on above: Performed By: #### A LDOLASE, MANUEL #### [facility] , #### CK, CMP, CRP, T4F, TSH3, CBC, ESR #### [address] Erythrocyte sedimentation ra te by Photometric methodOrdered By: Dax Coello on 01-23-2024 ESR Photometric method (Bld) [Velocity] 58 mm/hr 0-29 [facility] Erythrocytes [#/volume] in B lood by Automated countOrdered By: Dax Coello on 01-23-2024 RBC (Bld) [#/Vol] 5.04 10*6/uL High 3.60-5.00 [facility] Comment on above: Performed By: #### A LDOLASE, MANUEL #### [facility] , #### CK, CMP, CRP, T4F, TSH3, CBC, ESR #### [address] Glucose [Mass/volume] in Ser um or PlasmaOrdered By: Dax Vergararow on 01-23-2024 Glucose [Mass/Vol] 110 mg/dL High 70-100 [facility] Comment on above: ADA recommended refe rence rangeRandom Glucose Reference Range is dependent on time and content of last meal. Glucose of more than 200 mg/dL in a nonstressed, ambulatory subject supports the diagnosis of Diabetes Mellitus. Result Comment: [place] om Glucose Reference Range is dependent on time and content of last meal. Glucose of more than 200 mg/dL in a nonstressed, ambulatory subject supports the diagnosis of Diabetes Mellitus. ADA recommended reference range Performed By: #### A LDOLASE, MANUEL #### [facility] , #### CK, CMP, CRP, T4F, TSH3, CBC, ESR #### [facility] [address] [place] [address] Hematocrit [Volume Fraction] of Blood by Automated countOrdered By: Daxsilvia Coello on 01-23-2024 Hematocrit (Bld) [Volume fraction] 43.1 % Normal 34.0-46.4 [facility] Comment on above: Performed By: #### A LDOLASE, MANUEL #### [facility] , #### CK, CMP, CRP, T4F, TSH3, CBC, ESR #### [facility] [address] [place] [address] Hemoglobin [Mass/volume] in BloodOrdered By: Dax Coello on 01-23-2024 Hemoglobin (Bld) [Mass/Vol] 14.3 g/dL Normal 11.8-15.4 [facility] Comment on above: Performed By: #### A LDOLASE, MANUEL #### [facility] , #### CK, CMP, CRP, T4F, TSH3, CBC, ESR #### [facility] [address] [place] [address] [place] Leukocytes [#/volume] correc luis alfredo for nucleated erythrocytes in Blood by Automated counOrdered By: Daxsilvia Coello on 01-23-2024 WBC corrected for nucl RBC Auto (Bld) [#/Vol] 7.1 10*3/uL 3.8-11.6 [facility] Leukocytes [#/volume] in Blo od by Automated countOrdered By: Dax Coello on 01-23-2024 WBC (Bld) [#/Vol] 7.1 10*3/uL Normal 3.8-11.6 [facility] Comment on above: Performed By: #### A LDOLASE, MANUEL #### [facility] , #### CK, CMP, CRP, T4F, TSH3, CBC, ESR #### [place] [address] [place] Lymphocytes [#/volume] in Bl ood by Automated countOrdered By: Dax Vergararow on 01-23-2024 Lymphocytes (Bld) [#/Vol] 2.0 10*3/uL Normal 1.00-4.8 [facility] Comment on above: Performed By: #### A LDOLASE, MANUEL #### [facility] , #### CK, CMP, CRP, T4F, TSH3, CBC, ESR #### [facility] [address] [place] [address] [place] Lymphocytes/100 leukocytes i n Blood by Automated countOrdered By: Dax Vergararow on 01-23-2024 Lymphocytes/100 WBC (Bld) 28.2 % Normal . [facility] Comment on above: Performed By: #### A LDOLASE, MANUEL #### [facility] , #### CK, CMP, CRP, T4F, TSH3, CBC, ESR #### [place] [address] [place] MCH [Entitic mass] by Automa luis alfredo countOrdered By: Dax Coello on 01-23-2024 MCH (RBC) [Entitic mass] 28.4 pg Normal 24.7-34.3 [facility] Comment on above: Performed By: #### A LDOLASE, MANUEL #### [facility] , #### CK, CMP, CRP, T4F, TSH3, CBC, ESR #### [facility] [address] [place] [address] MCHC Auto (RBC) [Mass/Vol]Or dered By: Daxsilvia Coello on 01-23-2024 MCHC (RBC) [Mass/Vol] 33.2 g/dL 32.0-35.0 [facility] MCV [Entitic volume] by Auto mated countOrdered By: Dax Mode on 01-23-2024 MCV (RBC) [Entitic vol] 85.5 fL Normal 80-100 [facility] Comment on above: Performed By: #### A LDOLASE, MANUEL #### [facility] , #### CK, CMP, CRP, T4F, TSH3, CBC, ESR #### [address] Neutrophils [#/volume] in Bl ood by Automated countOrdered By: Dax Coello on 01-23-2024 Neutrophils (Bld) [#/Vol] 4.4 10*3/uL Normal 1.8-7.7 [facility] Comment on above: Performed By: #### A LDOLASE, MANUEL #### [facility] , #### CK, CMP, CRP, T4F, TSH3, CBC, ESR #### [address] No Panel InformationOrdered By: Dax Coello on 01-23-2024 Estimated GFR (CKD-EPI) 47.618 mL/Min [facility] Creatinine Clearance (Chem N/A [facility] Nucleated erythrocytes [Pres ence] in Blood by Automated countOrdered By: Dax Coello on 01-23-2024 Nucleated RBC Auto Ql (Bld) 0.2 /100{WBC} 0-0.5 [facility] Platelet mean volume [Entiti c volume] in Blood by Automated countOrdered By: Dax Coello on 01-23-2024 Platelet mean volume (Bld) [Entitic vol] 8.6 fL Normal 6.3-10.7 [facility] Comment on above: Performed By: #### A LDOLASE, MANUEL #### [facility] , #### CK, CMP, CRP, T4F, TSH3, CBC, ESR #### [facility] [address] [place] [address] [place] Platelets [#/volume] in Bloo d by Automated countOrdered By: Dax Coello on 01-23-2024 Platelets (Bld) [#/Vol] 380 10*3/uL Normal 150-450 [facility] Comment on above: Performed By: #### A LDOLASE, MANUEL #### [facility] , #### CK, CMP, CRP, T4F, TSH3, CBC, ESR #### [facility] [address] Potassium [Moles/volume] in Serum or PlasmaOrdered By: Dax Vergraarow on 01-23-2024 Potassium [Moles/Vol] 4.5 mmol/L Normal 3.5-5.1 [facility] Comment on above: Performed By: #### A LDOLASE, MANUEL #### [facility] , #### CK, CMP, CRP, T4F, TSH3, CBC, ESR #### [facility] [address] Protein [Mass/volume] in Ser um or PlasmaOrdered By: Dax Vergararow on 01-23-2024 Protein [Mass/Vol] 7.5 g/dL Normal 6.4-8.9 [facility] Comment on above: Performed By: #### A LDOLASE, MANUEL #### [facility] , #### CK, CMP, CRP, T4F, TSH3, CBC, ESR #### [facility] [address] Serum globulin measurement b y calculation (mass/volume)Ordered By: Daxsilvia Coello on 01-23-2024 Globulin (S) [Mass/Vol] 3.2 g/dL Normal [facility] Comment on above: Performed By: #### A LDOLASE, MANUEL #### [facility] , #### CK, CMP, CRP, T4F, TSH3, CBC, ESR #### [facility] [address] Serum or plasma albumin/glob ulin mass ratioOrdered By: Dax Coello on 01-23-2024 Albumin/Globulin [Mass ratio] 1.3 {ratio} Normal [facility] Comment on above: Performed By: #### A LDOLASE, MANUEL #### [facility] , #### CK, CMP, CRP, T4F, TSH3, CBC, ESR #### [address] Serum or plasma anion gap de terminationOrdered By: Dax Coello on 01-23-2024 Anion gap [Moles/Vol] 12.0 mmol/L Normal 6.0-15.0 [facility] Comment on above: Performed By: #### A LDOLASE, MANUEL #### [facility] , #### CK, CMP, CRP, T4F, TSH3, CBC, ESR #### [address] Sodium [Moles/volume] in Ser um or PlasmaOrdered By: Dax Coello on 01-23-2024 Sodium [Moles/Vol] 140 mmol/L Normal 136-145 [facility] Comment on above: Performed By: #### A LDOLASE, MANUEL #### [facility] , #### CK, CMP, CRP, T4F, TSH3, CBC, ESR #### [address] Thyrotropin [Units/volume] i n Serum or PlasmaOrdered By: Dax Coello on 01-23-2024 TSH Qn 1.66 m[IU]/L Normal 0.45-5.33 [facility] Comment on above: Result Comment: PERF ORMED BY: [place] [address] PATHOLOGIST RN HEMODIALYSIS CHARGE AYO CRUZ M.D. Performed By: #### A LDOLASE, MANUEL #### [facility] , #### CK, CMP, CRP, T4F, TSH3, CBC, ESR #### [facility] [address] [place] [address] [place] Thyroxine (T4) free [Mass/vo lume] in Serum or PlasmaOrdered By: Dax Coello on 01-23-2024 Free T4 [Mass/Vol] 0.93 ng/dL Normal 0.61-1.12 [facility] Comment on above: Performed By: #### A LDOLASE, MANUEL #### [facility] , #### CK, CMP, CRP, T4F, TSH3, CBC, ESR #### [facility] [address] [place] [address] [place] Urea nitrogen [Mass/volume] in Serum or PlasmaOrdered By: Dax Vergararow on 01-23-2024 Urea nitrogen [Mass/Vol] 14 mg/dL Normal 7-25 [facility] Comment on above: Performed By: #### A LDOLASE, MANUEL #### [facility] , #### CK, CMP, CRP, T4F, TSH3, CBC, ESR #### [facility] [address] CBC AND AUTO DIFFon 11-28-19 24 ABSOLUTE BASOPHIL 0.1 X10E9/L Normal 0.0-0.2 [facility] Comment on above: Performed By: #### C BCA, CMP, , 3083-1, THYR, 22765-4 #### [facility] ([id number]) [address], [address] [place] [address] ABSOLUTE NEUTROPHIL 4.6 X10E9/L Normal 1.5-6.6 [facility] Comment on above: Performed By: #### C BCA, CMP, 28696-0, 4-1, THYR, 47375-9 #### [facility] ([id number]) [address] [facility] [place] [address] Basophils/100 WBC (Bld) 0.9 % Normal [facility] Comment on above: Performed By: #### C BCA, CMP, 11905-2, 3083-, THYR, 21767-7 #### [facility] ([id number]) [address], [address] [place] [address] Eosinophils (Bld) [#/Vol] 0.3 10*3/uL Normal 0.0-0.4 [facility] Comment on above: Performed By: #### C BCA, CMP, , 3083-, THYR, 79343-5 #### [facility] ([id number]) [address], [address] [place] [address] Eosinophils/100 WBC (Bld) 4.6 % Normal [facility] Comment on above: Performed By: #### C BCA, CMP, , 3083-09, THYR, 29441-1 #### [facility] ([id number]) [address], [address] [place] [address] Erythrocyte distribution width (RBC) [Ratio] 14.1 % Normal 11.5-15.0 [facility] Comment on above: Performed By: #### C BCA, CMP, , 3083-09, THYR, 45837-8 #### [facility] ([id number]) [address], [address] [place] [address] Hematocrit (Bld) [Volume fraction] 39.1 % Normal 35-47 [facility] Comment on above: Performed By: #### C BCA, CMP, 88999-3, 3083-, THYR, 33566-3 #### [facility] ([id number]) [address], [address] [place] [address] Hemoglobin (Bld) [Mass/Vol] 13.2 g/dL Normal 11.7-15.5 [facility] Comment on above: Performed By: #### C BCA, CMP, 64423-1, 3083-, THYR, 89828-8 #### [facility] ([id number]) [address], [address] [place] [address] Lymphocytes (Bld) [#/Vol] 1.7 10*3/uL Normal 1.0-3.5 [facility] Comment on above: Performed By: #### C BCA, CMP, 01459-9, 3083-, THYR, 60968-5 #### [facility] ([id number]) [address], [facility] [address] [place] [address] Lymphocytes/100 WBC (Bld) 23.3 % Normal [facility] Comment on above: Performed By: #### C BCA, CMP, 55116-8, 3083-, THYR, 94766-0 #### [facility] ([id number]) [address], [address] [place] [address] MCH (RBC) [Entitic mass] 28.6 pg Normal 27-34 [facility] Comment on above: Performed By: #### C BCA, CMP, 20851-9, 3083-, THYR, 57443-3 #### [facility] ([id number]) [address], [facility] [address] [place] [address] MCHC (RBC) [Mass/Vol] 33.8 g/dL Normal 32-36 [facility] Comment on above: Performed By: #### C BCA, CMP, 43662-1, 3083-, THYR, 95115-9 #### [facility] ([id number]) [address] [address] [place] [address] MCV (RBC) [Entitic vol] 85 fL Normal 80-100 [facility] Comment on above: Performed By: #### C BCA, CMP, 57500-0, 4-1, THYR, 07581-4 #### [facility] ([id number]) [address], [address] [place] [address] Monocytes (Bld) [#/Vol] 0.6 10*3/uL Normal 0-0.9 [facility] Comment on above: Performed By: #### C BCA, CMP, 85120-9, 3084-1, THYR, 83732-9 #### [facility] ([id number]) [address], [address] [place] [address] Monocytes/100 WBC (Bld) 7.7 % Normal [facility] Comment on above: Performed By: #### C BCA, CMP, 84253-5, 4-1, THYR, 94295-9 #### [facility] ([id number]) [address], [address] [place] [address] Neutrophils/100 WBC (Bld) 63.5 % Normal [facility] Comment on above: Performed By: #### C BCA, CMP, 06936-6, 4-1, THYR, 34302-2 #### [facility] ([id number]) [address], [address] [place] [address] Platelet mean volume (Bld) [Entitic vol] 8.7 fL Normal 7-12 [facility] Comment on above: Performed By: #### C BCA, CMP, 03026-2, 4-1, THYR, 17031-0 #### [facility] ([id number]) [address], [address] [place] [address] Platelets (Bld) [#/Vol] 366 10*3/uL Normal 150-450 [facility] Comment on above: Performed By: #### C BCA, CMP, 14736-6, 3084-1, THYR, 02576-6 #### [facility] ([id number]) [address], [address] [place] [address] RBC COUNT 4.63 X10E12/L Normal 3.80-5.20 [facility] Comment on above: Performed By: #### C BCA, CMP, 01128-6, 3084-1, THYR, 28759-9 #### [facility] ([id number]) [address], [address] [place] [address] WBC (Bld) [#/Vol] 7.2 10*3/uL Normal 4.0-11.0 [facility] Comment on above: Performed By: #### C BCA, CMP, 46602-2, 3084-1, THYR, 31063-5 #### [facility] ([id number]) [address] [facility] [place] [address] CBC auto differentialon - Basophils (Bld) [#/Vol] 0.1 10*3/uL [facility] Basophils/100 WBC (Bld) 0.9 % [facility] Eosinophils (Bld) [#/Vol] 0.3 10*3/uL [facility] Eosinophils/100 WBC (Bld) 4.6 % [facility] Erythrocyte distribution width (RBC) [Ratio] 14.1 % 11.5 - 15.0 % [facility] Hematocrit (Bld) [Volume fraction] 39.1 % 35 - 47 % [facility] Hemoglobin (Bld) [Mass/Vol] 13.2 g/dL 11.7 - 15.5 g/dL [facility] Lymphocytes (Bld) [#/Vol] 1.7 10*3/uL [facility] Lymphocytes/100 WBC (Bld) 23.3 % [facility] MCH (RBC) [Entitic mass] 28.6 pg 27 - 34 pg [facility] MCHC (RBC) [Mass/Vol] 33.8 g/dL 32 - 36 g/dL [facility] MCV (RBC) [Entitic vol] 85 fL 80 - 100 fL [facility] Monocytes (Bld) [#/Vol] 0.6 10*3/uL [facility] Monocytes/100 WBC (Bld) 7.7 % P [facility] Neutrophils (Bld) [#/Vol] 4.6 10*3/uL [facility] Neutrophils/100 WBC (Bld) 63.5 % [facility] Platelet mean volume (Bld) [Entitic vol] 8.7 fL 7 - 12 fL [facility] Platelets (Bld) [#/Vol] 366 10*3/uL [facility] RBC (Bld) [#/Vol] 4.63 10*6/uL [facility] WBC corrected for nucl RBC Auto (Bld) [#/Vol] 7.2 [facility] COMPREHENSIVE METABOLIC PANE Bijan 11-28-2023 Albumin [Mass/Vol] 3.9 g/dL Normal 3.2-5.3 [facility] Comment on above: Performed By: #### C BCA, CMP, 87711-5, 3084-1, THYR, 72287-1 #### [facility] ([id number]) [address], [address] [place] [address] ALP [Catalytic activity/Vol] 101 U/L Normal 39-130 [facility] Comment on above: Performed By: #### C BCA, CMP, 96827-8, 3084-1, THYR, 30091-9 #### [facility] ([id number]) [address], [address] [place] [address] ALT [Catalytic activity/Vol] 15 U/L Normal 0-31 [facility] Comment on above: Performed By: #### C BCA, CMP, 17086-5, 3084-1, THYR, 70826-9 #### [facility] ([id number]) [address], [address] [place] [address] Anion gap [Moles/Vol] 10 mmol/L Normal 5-15 [facility] Comment on above: Performed By: #### C BCA, CMP, 71296-6, 3084-1, THYR, 10245-5 #### [facility] ([id number]) [address], [address] [place] [address] AST [Catalytic activity/Vol] 20 U/L Normal 0-41 [facility] Comment on above: Performed By: #### C BCA, CMP, 51194-4, 3083-, THYR, 20125-9 #### [facility] ([id number]) [address], [address] [place] [address] Bilirubin [Mass/Vol] 0.3 mg/dL Normal 0.3-1.2 [facility] Comment on above: Performed By: #### C BCA, CMP, , 3083-09, THYR, 48707-9 #### [facility] ([id number]) [address], [address] [place] [address] Calcium [Mass/Vol] 9.1 mg/dL Normal 8.5-10.5 [facility] Comment on above: Performed By: #### C BCA, CMP, , 3083-09, THYR, 60489-6 #### [facility] ([id number]) [address], [address] [place] [address] Chloride [Moles/Vol] 105 mmol/L Normal 98-109 [facility] Comment on above: Performed By: #### C BCA, CMP, , 3083-, THYR, 77677-5 #### [facility] ([id number]) [address], [address] [place] [address] CO2 [Moles/Vol] 25 mmol/L Normal 22-32 [facility] Comment on above: Performed By: #### C BCA, CMP, , 3083-, THYR, 27196-6 #### [facility] ([id number]) [address], [address] [place] [address] Creatinine [Mass/Vol] 1.06 mg/dL High 0.40-1.00 [facility] Comment on above: Result Comment: METH OD TRACEABLE TO IDMS STANDARD Performed By: #### C BCA, CMP, , 3083-09, THYR, 66264-1 #### [facility] ([id number]) [address], [address] [place] [address] GFR/1.73 sq M.predicted among non-blacks MDRD (S/P/Bld) [Vol rate/Area] 56 mL/min/{1.73_m2} Low >59 [facility] Comment on above: Result Comment: Reported eGFR is based on the CKD-EPI 2020 equation that does not use a race coefficient. Performed By: #### C BCA, CMP, , 3083-09, THYR, 39512-7 #### [facility] ([id number]) [address], [address] [place] [address] Glucose [Mass/Vol] 111 mg/dL High 65-99 [facility] Comment on above: Performed By: #### C BCA, CMP, , 3083-09, THYR, 14449-5 #### [facility] ([id number]) [address] [address] [place] [address] Potassium [Moles/Vol] 3.7 mmol/L Normal 3.5-5.0 [facility] Comment on above: Performed By: #### C BCA, CMP, , 3083-09, THYR, 01338-2 #### [facility] ([id number]) [address] [address] [place] [address] Protein [Mass/Vol] 7.2 g/dL Normal 6.0-8.0 [facility] Comment on above: Performed By: #### C BCA, CMP, , 3083-, THYR, 79023-3 #### [facility] ([id number]) [address] [address] [place] [address] Sodium [Moles/Vol] 140 mmol/L Normal 134-146 [facility] Comment on above: Performed By: #### C BCA, CMP, 99348-0, 3084-1, THYR, 66563-8 #### [facility] ([id number]) [address], [address] [place] [address] Urea nitrogen [Mass/Vol] 18 mg/dL Normal 5-27 [facility] Comment on above: Performed By: #### C BCA, CMP, 04278-0, 3084-1, THYR, 19185-0 #### [facility] ([id number]) [address], [address] [place] [address] Comprehensive metabolic pane bijan 11-28-2023 Albumin [Mass/Vol] 3.9 g/dL 3.2 - 5.3 g/dL [facility] ALP [Catalytic activity/Vol] 101 U/L 39 - 130 U/L [facility] ALT No additional P-5'-P [Catalytic activity/Vol] 15 U/L 0 - 31 U/L [facility] Anion gap [Moles/Vol] 10 mmol/L 5 - 15 mmol/L [facility] AST [Catalytic activity/Vol] 20 U/L 0 - 41 U/L [facility] Bilirubin [Mass/Vol] 0.3 mg/dL 0.3 - 1 .2 mg/dL [facility] Calcium [Mass/Vol] 9.1 mg/dL 8.5 - 10. 5 mg/dL [facility] Chloride [Moles/Vol] 105 mmol/L 98 - 10 9 mmol/L [facility] CO2 [Moles/Vol] 25 mmol/L 22 - 32 mmol/L [facility] Creatinine [Mass/Vol] 1.06 mg/dL High 0.40 - 1.00 mg/dL [facility] Comment on above: METHOD TRACEABLE TO IDW[place] STANDARD eGFR (CKD-EPI)non-race dependent 56 Low - PINF [facility] Comment on above: Reported eGFR is based on the CKD-EPI 2020 equation that does not use a race coefficient. Glucose [Mass/Vol] 111 mg/dL High 65 - 99 mg/dL [facility] Interpretation and review of laboratory results Abnormal [facility] Potassium [Moles/Vol] 3.7 mmol/L 3.5 - 5.0 mmol/L [facility] Protein [Mass/Vol] 7.2 g/dL 6.0 - 8.0 g/dL [facility] Sodium [Moles/Vol] 140 mmol/L 134 - 146 mmol/L [facility] Urea nitrogen [Mass/Vol] 18 mg/dL 5 - 27 mg/d L [facility] ESR Photometric method (Bld) [Velocity]on 11-28-2023 Interpretation and review of laboratory results Abnormal [facility] ESR, ERYTHROCYTE SEDIMENTATION RATE 78 mm/h High 0-30 [facility] Comment on above: Performed By: #### C SHANNAN CMP, 03201-2, 308-1, THYR, 84995-9 #### [facility] ([id number]) [address], [address] [place] [address] Erythrocyte Sedimentation Ra te (ESR)on 11-28-2023 ESR Photometric method (Bld) [Velocity] 78 mm/h High 0 - 30 mm/h [facility] MAGNESIUMon 11-28-2023 Magnesium [Mass/Vol] 2.0 mg/dL Normal 1.8-2.6 [facility] Comment on above: Performed By: #### C SHANNAN CMP, 03328-2, 308-1, THYR, 20221-6 #### [facility] ([id number]) [address], [address] [place] [address] Magnesiumon 11-28-2023 Magnesium [Mass/Vol] 2.0 mg/dL 1.8 - 2 .6 mg/dL [facility] No Panel Informationon 11-27 [facility] THYROID PROFILEon 11-28-2023 Free T4 [Mass/Vol] 0.90 ng/dL Normal 0.61-1.60 [facility] Comment on above: Performed By: #### C BCA, CMP, 49907-4, 3084-1, THYR, 70661-3 #### [facility] ([id number]) [address], [address] [place] [address] TSH 2.38 uIU/mL Normal 0.49-4.67 [facility] Comment on above: Performed By: #### C BCA, CMP, 47010-3, 3084-1, THYR, 54443-9 #### [facility] ([id number]) [address], [address] [place] [address] Thyroid profile includes TSH FT4on 11-28-2023 Free T4 [Mass/Vol] 0.90 ng/dL 0.61 - 1. 60 ng/dL [facility] TSH Qn 2.38 m[IU]/L [facility] URIC ACIDon 11-28-2023 Urate [Mass/Vol] 5.2 mg/dL Normal 2.6-7.2 [facility] Comment on above: Performed By: #### C BCA, CMP, 96833-8, 3084-1, THYR, 47570-8 #### [facility] ([id number]) [address], [address] [place] [address] Uric acidon 11-28-2023 Urate [Mass/Vol] 5.2 mg/dL 2.6 - 7.2 mg/dL [facility] MR knee RT wo conon 10-24-19 MR knee RT wo con [facility] [place] [address] MRI Report Signed Patient: Lisa Cochran MR#: [id number] 5 : 1950 Acct:[id number] Age/Sex: 73 / F ADM Date: 10/24/23 Loc: MR Room: Type: [facility] Attending Dr: Aldo Wynn MD Copies to: Aldo Wynn MD Ordering Provider: Aldo Wnyn MD Date of Service: 10/24/23 MR/MR knee [...] Eduardo Oates M.D.10/24/2023 1:18 PM Dictation Location: [place] [address] Transcribed By: [facility] 10/24/23 1318 Dictated By: Luis Eduardo Oates DO 10/24/23 1308 Signed By: 10/24/23 1318 Normal [facility] XR knee RT 2Von 10-03-2023 XR knee RT 2V [facility] [place] [address] [place] [address] XRay Report Signed Patient: Lisa Cochran MR#: [id number] 5 : 1950 Acct:[id number] Age/Sex: 73 / F ADM Date: 10/03/23 Loc: [facility] Room: Type: [facility] Attending Dr: Aldo Wynn MD Copies to: [...] Eduardo Oates M.D.10/03/2023 1:36 PM Dictation Location: [place] [address] Transcribed By: [facility] 10/03/23 1336 Dictated By: Luis Eduardo Oates DO 10/03/23 1335 Signed By: 10/03/23 1336 Normal [facility] COVID/FLU/RSV RT-PCRon 09-01 SARS-CoV-2 (COVID-19) RNA ANGEL+probe Ql (Unsp spec) Negative [facility] [email or web address] Other COVID/FLU/RSV RT-PCR Negative [facility] [email or web address] Other COMPREHENSIVE METABOLIC PANE Bijan 12-14-2021 Albumin [Mass/Vol] 4.3 g/dL Normal 3.6-5.1 [facility] Comment on above: Performed By: #### 1 4009, 5507 #### [facility] [address], [address] [place] [id number] Cast Associate: Napoleon Anne MD Albumin/Globulin [Mass ratio] 1.6 {ratio} Normal 1.0-2.5 [facility] Comment on above: Performed By: #### 1 0231, 7600 #### [facility] of [address], [address] [place] [address] Cast Associate: Napoleon Anne MD ALP [Catalytic activity/Vol] 108 U/L Normal 37-153 [facility] Comment on above: Performed By: #### 1 0231, 7600 #### [facility] of [address], [address] [place] [address] Cast Associate: Napoleon Anne MD ALT [Catalytic activity/Vol] 10 U/L Normal 6-29 [facility] Comment on above: Performed By: #### 1 0231, 7600 #### [facility] of [place] [address] Cast Associate: Napoleon Anne MD AST [Catalytic activity/Vol] 14 U/L Normal 10-35 [facility] Comment on above: Performed By: #### 1 0231, 7600 #### [facility] of [address], [address] [place] [address] Cast Associate: Napoleon Anne MD Bilirubin [Mass/Vol] 0.5 mg/dL Normal 0.2-1.2 [facility] Comment on above: Performed By: #### 1 0231, 7600 #### [facility] of [address], [address] [place] [address] Cast Associate: Napoleon Anne MD BUN/CREATININE RATIO NOT APPLICABLE Normal 6-22 [facility] Comment on above: Performed By: #### 1 0231, 7600 #### [facility] of [address], [address] [place] [address] Cast Associate: Napoleon Anne MD Calcium [Mass/Vol] 9.5 mg/dL Normal 8.6-10.4 [facility] Comment on above: Performed By: #### 1 0231, 7600 #### [facility] of [address], [address] [place] [address] Cast Associate: Napoleon Anne MD Chloride [Moles/Vol] 106 mmol/L Normal 98-110 [facility] Comment on above: Performed By: #### 1 0231, 7600 #### [facility] [address], [address] [place] [address] Cast Associate: Napoleon Anne MD CO2 [Moles/Vol] 29 mmol/L Normal 20-32 [facility] Comment on above: Performed By: #### 1 023, 7600 #### [facility] [place] [address] Cast Associate: Napoleon Anne MD Creatinine [Mass/Vol] 0.86 mg/dL Normal 0.60-0.[address] [facility] Comment on above: Result Comment: For patients >49 years of age, the reference limit for Creatinine is approximately 13% higher for people identified as -[place]. Performed By: #### 1 023, 7600 #### [facility] [address], [address] [place] [address] Cast Associate: Napoleon Anne MD eGFR NON-AFR. [place] 68 mL/min/1.73m2 Normal > OR = 60 [facility] Comment on above: Performed By: #### 1 023, 7600 #### [facility] [place] [address] Cast Associate: Napoleon Anne MD GFR/1.73 sq M.predicted among blacks MDRD (S/P/Bld) [Vol rate/Area] 79 mL/min/{1.73_m2} Normal > OR = 60 [facility] Comment on above: Performed By: #### 1 023, 7600 #### [facility] of [address], [address] [place] [address] Cast Associate: Napoleon Anne MD Globulin (S) [Mass/Vol] 2.7 g/dL Normal 1.9-3.7 [facility] Comment on above: Performed By: #### 1 023, 7600 #### [facility] [address], [address] [place] [address] Cast Associate: Napoleon Anne MD Glucose [Mass/Vol] 100 mg/dL High 65-99 [facility] Comment on above: Result Comment: Fasting reference interval For someone without known diabetes, a glucose value between 100 and 125 mg/dL is consistent with prediabetes and should be confirmed with a follow-up test. Performed By: #### 1 0231, 7600 #### [facility] [address], [address] [place] [address] Cast Associate: Napoleon Anne MD Potassium [Moles/Vol] 4.1 mmol/L Normal 3.5-5.[address] [facility] Comment on above: Performed By: #### 1 0231, 7600 #### [facility] [place] [address] Cast Associate: Napoleon Anne MD Protein [Mass/Vol] 7.0 g/dL Normal 6.1-8.1 [facility] Comment on above: Performed By: #### 1 023, 0 #### [facility] [address], [address] [place] [address] Cast Associate: Napoleon Anne MD Sodium [Moles/Vol] 141 mmol/L Normal 135-146 [facility] Comment on above: Performed By: #### 1 0231, 7600 #### [facility] [place] [address] Cast Associate: Napoleon Anne MD Urea nitrogen [Mass/Vol] 14 mg/dL Normal 7-25 [facility] Comment on above: Performed By: #### 1 0231, 7600 #### [facility] [place] [address] Cast Associate: Napoleon Anne MD LIPID PANEL, [facility] 12-03 Cholesterol [Mass/Vol] 191 mg/dL Normal <200 [facility] Comment on above: Order Comment: FASTI NG:YES FASTING: YES Performed By: #### 1 023, 7600 #### [facility] [place] [address] Cast Associate: Napoleon Anne MD Cholesterol in HDL [Mass/Vol] 63 mg/dL Normal > OR = 50 [facility] Comment on above: Order Comment: FASTI NG:YES FASTING: YES Performed By: #### 1 615, 4530 #### [facility] [address], [address] [place] [address] Cast Associate: Napoleon Anne MD Cholesterol in LDL [Mass/Vol] [...] LDL-C. Obinna DELCID et al. ALIREZA. 2013;310(19): 6232-7045 (http://education.[facility] [facility].[employer]/faq/ERN753) Performed By: #### 1 023, 0 #### [facility] [address], [address] [place] [address] Cast Associate: Napoleon Anne MD Cholesterol.total/Choles terol in HDL [Mass ratio] 3.0 {ratio} Normal <5.0 [facility] Comment on above: Order Comment: FASTI NG:YES FASTING: YES Performed By: #### 1 023, 0 #### [facility] [address], [address] [place] [address] Cast Associate: Napoleon Anne MD NON HDL CHOLESTEROL 128 mg/dL (calc) Normal <130 [facility] Comment on above: Order Comment: FASTI NG:YES FASTING: YES Result Comment: For patients with diabetes plus 1 major ASCVD risk factor, treating to a non-HDL-C goal of <100 mg/dL (LDL-C of <70 mg/dL) is considered a therapeutic option. Performed By: #### 1 0231, 6370 #### [facility] [address], [address] [place], [place] [address] Cast Associate: Napoleon Anne MD Triglyceride [Mass/Vol] 146 mg/dL Normal <150 [facility] Comment on above: Order Comment: FASTI NG:YES FASTING: YES Performed By: #### 1 0231, 7600 #### [facility] [place] [address] Cast Associate: Napoleon Anne MD BASIC METABOLIC PANEL 10-2 BUN/CREATININE RATIO NOT APPLICABLE Normal 6- [facility] Comment on above: Performed By: #### 7 18, 47886, 94294, 905, 6399, 622 #### [facility] [place] [address] Cast Associate: Napoleon Anne MD Calcium [Mass/Vol] 9.1 mg/dL Normal 8.6-10.4 [facility] Comment on above: Performed By: #### 7 18, 52364, 75903, 905, 6399, 622 #### [facility] [address], [address] [place] [address] Cast Associate: Napoleon Anne MD Chloride [Moles/Vol] 103 mmol/L Normal 98-110 [facility] Comment on above: Performed By: #### 7 18, 70956, 54673, 905, 6399, 622 #### [facility] [place] [address] Cast Associate: Napoleon Anne MD CO2 [Moles/Vol] 22 mmol/L Normal 20-32 [facility] Comment on above: Performed By: #### 7 18, 63546, 74949, 905, 6399, 622 #### [facility] [place] [address] Cast Associate: Napoleon Anne MD Creatinine [Mass/Vol] 0.93 mg/dL Normal 0.60-0.[address] [facility] Comment on above: Result Comment: For patients >49 years of age, the reference limit for Creatinine is approximately 13% higher for people identified as -[place]yan. Performed By: #### 7 18, 40282, 89146, 905, 6399, 622 #### [facility] [place] [address] Cast Associate: Napoleon Anne MD eGFR NON-AFR. [place] 62 mL/min/1.73m2 Normal > OR = 60 [facility] Comment on above: Performed By: #### 7 18, 51663, 90259, 905, 6399, 622 #### [facility] [place] [address] Cast Associate: Napoleon Anne MD GFR/1.73 sq M.predicted among blacks MDRD (S/P/Bld) [Vol rate/Area] 72 mL/min/{1.73_m2} Normal > OR = 60 [facility] Comment on above: Performed By: #### 7 18, 13729, 29327, 905, 6399, 622 #### [facility] [place] [address] Cast Associate: Napoleon Anne MD Glucose [Mass/Vol] 100 mg/dL High 65-99 [facility] Comment on above: Result Comment: Fasting reference interval For someone without known diabetes, a glucose value between 100 and 125 mg/dL is consistent with prediabetes and should be confirmed with a follow-up test. Performed By: #### 7 18, 55052, 31620, 905, 6399, 622 #### [facility] [place] [address] Cast Associate: Napoleon Anne MD Potassium [Moles/Vol] 4.0 mmol/L Normal 3.5-5.[address] [facility] Comment on above: Performed By: #### 7 18, 30845, 40848, 905, 6399, 622 #### [facility] [place] [address] Cast Associate: Napoleon Anne MD Sodium [Moles/Vol] 139 mmol/L Normal 135-146 [facility] Comment on above: Performed By: #### 7 18, 50020, 55952, 905, 6399, 622 #### [facility] [place] [address] Cast Associate: Napoleon Anne MD Urea nitrogen [Mass/Vol] 15 mg/dL Normal 7-25 [facility] Comment on above: Performed By: #### 7 18, 12972, 88421, 905, 6399, 622 #### [facility] [place] [address] Cast Associate: Napoleon Anne MD CBC (INCLUDES DIFF/PLT)on Basophils (Bld) [#/Vol] 0.043 10*3/uL Normal 0-200 [facility] Comment on above: Performed By: #### 7 18, 38445, 83743, 905, 6399, 622 #### [facility] [place] [address] Cast Associate: Napoleon Anne MD Basophils/100 WBC (Bld) 0.7 % Normal [facility] Comment on above: Performed By: #### 7 18, 15740, 32933, 905, 6399, 622 #### [facility] [place] [address] Cast Associate: Napoleon Anne MD Eosinophils (Bld) [#/Vol] 0.061 10*3/uL Normal 15-500 [facility] Comment on above: Performed By: #### 7 18, 56037, 05094, 905, 6399, 622 #### [facility] [place] [address] Cast Associate: Napoleon Anne MD Eosinophils/100 WBC (Bld) 1.0 % Normal [facility] Comment on above: Performed By: #### 7 18, 64908, 22770, 905, 6399, 622 #### [facility] [place] [address] Cast Associate: Napoleon Anne MD Erythrocyte distribution width (RBC) [Ratio] 14.7 % Normal 11.0-15.0 [facility] Comment on above: Performed By: #### 7 18, 68818, 21099, 905, 6399, 622 #### [facility] [place] [address] Cast Associate: Napoleon Anne MD Hematocrit (Bld) [Volume fraction] 41.5 % Normal 35.0-45.0 [facility] Comment on above: Performed By: #### 7 18, 18618, 39788, 905, 6399, 622 #### [facility] [place] [address] Cast Associate: Napoleon Anne MD Hemoglobin (Bld) [Mass/Vol] 13.5 g/dL Normal 11.7-15.5 [facility] Comment on above: Performed By: #### 7 18, 37861, 02730, 905, 6399, 622 #### [facility] [place] [address] Cast Associate: Napoleon Anne MD Lymphocytes (Bld) [#/Vol] 1.928 10*3/uL Normal 850-3900 [facility] Comment on above: Performed By: #### 7 18, 57280, 82621, 905, 6399, 622 #### [facility] [place] [address] Cast Associate: Napoleon Anne MD Lymphocytes/100 WBC (Bld) 31.6 % Normal [facility] Comment on above: Performed By: #### 7 18, 52717, 11222, 905, 6399, 622 #### [facility] [place] [address] Cast Associate: Napoleon Anne MD MCH (RBC) [Entitic mass] 28.3 pg Normal 27.0-33.0 [facility] Comment on above: Performed By: #### 7 18, 10599, 09413, 905, 6399, 622 #### [facility] [place] [address] Cast Associate: Napoleon Anne MD MCHC (RBC) [Mass/Vol] 32.5 g/dL Normal 32.0-36.[address] [facility] Comment on above: Performed By: #### 7 18, 16099, 09071, 905, 6399, 622 #### [facility] [place] [address] Cast Associate: Napoleon Anne MD MCV (RBC) [Entitic vol] 87.0 fL Normal 80.0-100.0 [facility] Comment on above: Performed By: #### 7 18, 05625, 45189, 905, 6399, 622 #### [facility] [place] [address] Cast Associate: Napoleon Anne MD Monocytes (Bld) [#/Vol] 0.409 10*3/uL Normal 200-950 [facility] Comment on above: Performed By: #### 7 18, 10428, 91927, 905, 6399, 622 #### [facility] [place] [address] Cast Associate: Napoleon Anne MD Monocytes/100 WBC (Bld) 6.7 % Normal [facility] Comment on above: Performed By: #### 7 18, 22373, 26398, 905, 6399, 622 #### [facility] [place] [address] Cast Associate: Napoleon Anne MD Neutrophils (Bld) [#/Vol] 3.66 10*3/uL Normal 6976-4576 [facility] Comment on above: Performed By: #### 7 18, 45006, 12922, 905, 6399, 622 #### [facility] [place] [address] Cast Associate: Napoleon Anne MD Neutrophils/100 WBC (Bld) 60 % Normal [facility] Comment on above: Performed By: #### 7 18, 03827, 96826, 905, 6399, 622 #### [facility] [place] [address] Cast Associate: Napoleon Anne MD Platelet mean volume (Bld) [Entitic vol] 10.5 fL Normal 7.5-12.5 [facility] Comment on above: Performed By: #### 7 18, 81277, 97404, 905, 6399, 622 #### [facility] [place] [address] Cast Associate: Napoleon Anne MD Platelets (Bld) [#/Vol] 307 10*3/uL Normal 140-400 [facility] Comment on above: Performed By: #### 7 18, 30846, 62414, 905, 6399, 622 #### [facility] [place] [address] Cast Associate: Napoleon Anne MD RBC (Bld) [#/Vol] 4.77 10*6/uL Normal 3.80-5.10 [facility] Comment on above: Performed By: #### 7 18, 83508, 72342, 905, 6399, 622 #### [facility] [place] [address] Cast Associate: Napoleon Anne MD WBC (Bld) [#/Vol] 6.1 10*3/uL Normal 3.8-10.8 [facility] Comment on above: Performed By: #### 7 18, 83121, 48441, 905, 6399, 622 #### [facility] [place] [address] Cast Associate: Napoleon Anne MD MAGNESIUMon 06-23-2021 Magnesium [Mass/Vol] 2.0 mg/dL Normal 1.5-2.5 [facility] Comment on above: Order Comment: FASTI NG:UNKNOWN FASTING: UNKNOWN Performed By: #### 7 18, 69840, 74329, 905, 6399, 622 #### [facility] [place] [address], [address] [place] [address] Cast Associate: Napoleon Anne MD PHOSPHATE ( PHOSPHORUS)on 06-23-2021 Phosphate [Mass/Vol] 3.8 mg/dL Normal 2.1-4.3 [facility] Comment on above: Performed By: #### 7 18, 40392, 46661, 905, 6399, 622 #### [facility] [address], [address] [place] [address] Cast Associate: Napoleon Anne MD PTH, INTACT WITHOUT CALCIUMo [...] Normal High Performed By: #### 7 18, 79670, 63538, 905, 6399, 622 #### [facility] [address], [address] [place] [address] Cast Associate: Napoleon Anne MD URIC ACIDon 06-23-2021 Urate [Mass/Vol] 4.8 mg/dL Normal 2.5-7.0 [facility] Comment on above: Result Comment: Ther apeutic target for gout patients: <6.0 mg/dL Performed By: #### 7 18, 42661, 40665, 905, 6399, 622 #### [facility] [address], [address] [place] [address] Cast Associate: Napoleon Anne MD VITAMIN D,25-OH,TOTAL,IAon 1 VITAMIN [...] D, (D2,D3), LC/MS/MS is recommended: order code 43342 (patients >2yrs). See Note 1 Note 1 For additional information, please refer to http://education.[facility].[employer]/faq/LXB333 (This link is being provided for informational/ educational purposes only.) Performed By: #### 7 18, 27655, 17149, 905, 6399, 622 #### [facility] [place] [address] [facility], [address] [place] [id number] Cast Associate: Napoleon Anne MD Vital Signs Date Time Vital Sign Value Performing Clinician Facility 11-28-2023 09:01-0400 Body height 157.5 cm Kate Thornton APRN-NEWS LIBRARY DIRECTOR Work Phone: [facility] 11-28-2023 09:01-0400 Body mass index (BMI) [Ratio] 37.86 kg/m2 Kate Thornton APRN-NEWS LIBRARY DIRECTOR Work Phone: [facility] 11-28-2023 09:01-0400 Body temperature 98.01 [degF] Kate Thornton APRN-NEWS LIBRARY DIRECTOR Work Phone: [facility] 11-28-2023 09:01-0400 Body weight 93.89 kg Kate Thornton APRN-NEWS LIBRARY DIRECTOR Work Phone: [facility] 11-28-2023 09:01-0400 Diastolic blood pressure 70 mm[Hg] Kate Thornton APRN-NEWS LIBRARY DIRECTOR Work Phone: [facility] 11-28-2023 09:01-0400 Heart rate 119 /min Kate Thornton APRN-NEWS LIBRARY DIRECTOR Work Phone: [facility] 11-28-2023 09:01-0400 Respiratory rate 18 /min Kate Thornton APRN-NEWS LIBRARY DIRECTOR Work Phone: [facility] 11-28-2023 09:01-0400 SaO2% (BldA) [Mass fraction] 95 % Kate Thornton [employer]RARY DIRECTOR Work Phone: [facility] 11-28-2023 09:01-0400 Systolic blood pressure 90 mm[Hg] Kate Thornton [employer]WS [employer]RARY DIRECTOR Work Phone: [facility] 11-07-2023 09:42-0500 Body height 157.48 cm [facility] 11-07-2023 09:42-0500 Body mass index (BMI) [Ratio] 37.5 kg/m2 [facility] 11-07-2023 09:42-0500 Body weight 92.98 kg [facility] 10-24-2023 11:23-0500 Diastolic blood pressure 97 mm[Hg] [facility] 10-24-2023 11:23-0500 Heart rate 107 /min [facility] 10-24-2023 11:23-0500 Respiratory rate 18 /min [facility] 10-24-2023 11:23-0500 SaO2% (BldA) [Mass fraction] 94 % [facility] 10-24-2023 11:23-0500 Systolic blood pressure 144 mm[Hg] [facility] 10-24-2023 11:19-0500 Body height 154.94 cm [facility] 10-24-2023 11:19-0500 Body weight 94.34 kg [facility] 10-03-2023 09:45-0500 Body height 154.94 cm Aldo Wynn Other [facility] 10-03-2023 09:45-0500 Body mass index (BMI) [Ratio] 39.3 kg/m2 Aldo Olexa Other [facility] Other 10-03-2023 09:45-0500 Body weight 94.35 kg Aldo Olexa Other [facility] Other 10-03-2023 09:45-0500 Body weight 94.34 kg [facility] 09-01-2022 12:45-0500 Body height 154.94 cm Tanna Paige Other [facility] Other 09-01-2022 12:45-0500 Body mass index (BMI) [Ratio] 40.24 kg/m2 Tanna Liuault Other [facility] Other 09-01-2022 12:45-0500 Body weight 96.62 kg Tanna Liuault Other [facility] Other 09-01-2022 12:45-0500 Diastolic blood pressure 75 mm[Hg] Tanna Liuault Other [facility] Other 09-01-2022 12:45-0500 Respiratory rate 18 /min Tanna Liuault Other [facility] Other 09-01-2022 12:45-0500 SaO2% (BldA) [Mass fraction] 96 % Tanna Liuault Other [facility] Other 09-01-2022 12:45-0500 Systolic blood pressure 114 mm[Hg] Tanna Liuault Other [facility] Other 09-28-2021 11:15-0500 Body height 154.94 cm Aldo Olexa Other [facility] Other 09-28-2021 11:15-0500 Body mass index (BMI) [Ratio] 41.75 kg/m2 Aldo Olexa Other [facility] Other 09-28-2021 11:15-0500 Body weight 100.25 kg Aldo Olexa Other [facility] Other 08-19-2021 10:30-0500 Body height 154.94 cm Aldo Wynn Other [facility] Other 08-19-2021 10:30-0500 Body mass index (BMI) [Ratio] 41.56 kg/m2 Aldo Olexa Other [facility] Other 08-19-2021 10:30-0500 Body weight 99.79 kg Aldo Olexa Other [facility] Other Encounters Encounter Date Encounter Type Care Provider Facility Start: 09-18-2024 End: 09-18-2024 ambulatory NON STAFF [facility] Work Phone: Start: 09-18-2024 End: 09-18-2024 Patient encounter procedure [facility] [address] Work Phone: Start: 08-13-2024 End: 08-13-2024 Refill Mary [facility]ftikhar [facility] Comment on above: Mixed hyperlipidemia Start: 07-10-2024 End: 07-22-2024 Telephone encounter Andres G Meggan DO Work Phone: [facility] Start: 02-01-2024 End: 02-02-2024 ambulatory [facility] Sydni [facility] Start: 02-01-2024 End: 02-01-2024 ambulatory [facility] Start: 01-23-2024 End: 01-23-2024 Patient encounter procedure [facility] [address] Work Phone: Start: 01-23-2024 End: 01-23-2024 ambulatory NON STAFF [facility] Work Phone: Start: 12-07-2023 Orders Only Kate Best [facility] [employer]WS [employer]RARY DIRECTOR Work Phone: [facility] Comment on above: Erosive (osteo)arthr itis (Primary Dx) Start: 12-04-2023 End: 12-05-2023 ambulatory KATE THORNTON [facility] Start: 11-28-2023 End: 11-29-2023 Orders Only Kate Thornton [employer]WS [employer]RARY DIRECTOR [facility] Comment on above: Swelling of multiple joints (Primary Dx) Start: 11-28-2023 End: 11-28-2023 Office outpatient visit 25 minutes Kate Thornton [employer] DIRECTOR Work Phone: [facility] Comment on above: Swelling of multiple joints (Primary Dx); Stage 3a chronic kidney disease ([facility]); Palpitations Start: 11-21-2023 Refill Kate Thornton [employer]-NEWS [employer]RARY DIRECTOR Work Phone: [facility] Comment on above: Mixed hyperlipidemia Start: 11-07-2023 End: 11-07-2023 Patient encounter procedure [facility] Work Phone: Start: 10-24-2023 End: 10-24-2023 Patient encounter procedure [facility] Work Phone: Start: 10-24-2023 End: 10-24-2023 ambulatory NON STAFF [facility] Work Phone: Start: 10-03-2023 Office outpatient vi sit 25 minutes Aldo Wynn [facility] Start: 10-03-2023 End: 10-03-2023 Patient encounter procedure [facility] Start: 10-03-2023 End: 10-03-2023 ambulatory NON STAFF [facility] Other Start: 10-03-2023 End: 10-03-2023 Patient encounter procedure [facility]- Start: 08-07-2023 End: 08-07-2023 ambulatory JOSEFINA MELISSA Not Available Start: 09-01-2022 End: 09-01-2022 ambulatory Tanna Paige Other [facility] Other Start: 09-01-2022 Office outpatient vi sit 15 minutes Tanna Liuault [facility] Start: 09-28-2021 End: 09-28-2021 ambulatory Aldo Olexa Other [facility] Other Start: 09-28-2021 Office outpatient vi sit 15 minutes Aldo Olexa [facility] Start: 08-19-2021 End: 08-19-2021 ambulatory Aldo Olexa Other [facility] Other Start: 08-19-2021 Office outpatient ne w 30 minutes Aldo Olexa [facility] Start: 10-29-2020 End: 10-30-2020 Patient encounter procedure NONE LISTED REQUEST Facility: Procedures Date Procedure Procedure Detail Performing Clinician Start: 02-01-2024 Follow-up visit Follow-up KATE THORNTON Start: 02-01-2024 Adult depression scr eening assessment Andres Calderongloria DO Work Phone: Start: 11-28-2023 Ecg routine ecg w/le ast 12 lds w/i&r Kate Thornton [employer] DIRECTOR Work Phone: Start: 11-28-2023 Adult depression scr eening assessment Kate Thornton [employer] DIRECTOR Work Phone: Start: 10-24-2023 MRI of right knee Start: 10-03-2023 X-ray of right knee Start: 05-12-2023 Mammography Kate Thornton [employer] DIRECTOR Work Phone: Start: 03-20-2023 Adult depression scr eening assessment Kate Thornton [employer] DIRECTOR Work Phone: Plan of Treatment Date Care Activity Detail Author Start: 05-12-2025 Screening for malign ant neoplasm of [facility] Start: 01-31-2025 Adult BMI Screening [facility] ing [facility] Start: 01-31-2025 Depression Screening Depression Scre ening [facility] Start: 01-31-2025 Fall Risk Screening Fall Risk Screen ing [facility] Start: 01-31-2025 Tobacco Screening Tobacco Screening [facility] Start: 11-27-2024 Adult BMI Screening Adult BMI Screen ing [facility] Start: 11-27-2024 Depression Screening Depression Scre ening [facility] Start: 11-27-2024 Fall Risk Screening Fall Risk Screen ing [facility] Start: 11-27-2024 Tobacco Screening Tobacco Screening [facility] Start: 10-03-2024 End: 10-03-2024 Patient encounter procedure 10/03/2024 1:00 PM EST [facility] [address] [place] [address] Andres Broderick, DO [address], [facility] [place] [address] [facility] Start: 09-18-2024 Hepatitis B core ant ibody measurement [facility] Start: 09-18-2024 [facility] Start: 09-03-2024 End: 09-03-2024 Patient encounter procedure 09/03/2024 9:00 AM EST [facility] [address] [place] [address] [facility] Start: 06-02-2024 Adult BMI Screening Adult BMI Screen ing [facility] Start: 06-02-2024 Tobacco Screening Tobacco Screening [facility] Start: 03-20-2024 Depression Screening Depression Scre ening [facility] Start: 03-20-2024 Medicare Annual Well ness Visit Medicare Annual Wellness Visit [facility] Start: 03-18-2024 Fall Risk Screening Fall Risk Screen ing [facility] Start: 01-23-2024 [facility] Start: 11-28-2023 End: 11-27-2024 XR Hand - right 3 Views X-ray hand right minimum 3 views Imaging Routine Swelling of multiple joints Expected: 11/28/2023, Expires: 11/27/2024 [facility] Work Phone: Comment on above: Expected: 11/28/2023 , Expires: 11/27/2024 Start: 01-24-2013 DTaP,Tdap and Td Vac cines (1 - Tdap) DTaP,Tdap and Td Vaccines (1 - Tdap) [facility] Start: 2001 Administration of varicella zoster vaccine Zoster (Shingles) Vaccine (1 of 2) [facility] Start: 1969 Adult BMI Follow Up Plan Adult BMI Follow Up Plan [facility] Hepatitis B virus maravilla rface Ab [Presence] in Serum [facility] Hepatitis B virus maravilla rface Ag [Presence] in Serum or Plasma by Immunoassay [facility] Hepatitis C virus Ig G Ab [Presence] in Serum or Plasma by Immunoassay [facility] Interferon gamma assay [facility] Mycobacterium tuberculosis stimulated gamma interferon [Interpretation] in Blood Qualitative [facility] Mycobacterium tuberculosis stimulated gamma interferon release by CD4+ and CD8+ T-cells [Units/volume] corrected for background in Blood [facility] Mycobacterium tuberculosis tuberculin stimulated gamma interferon [Presence] in Blood [facility] POCT EKG POCT EKG ECG Rou ivone Palpitations 11/28/2023 10:12 AM EDT [facility] Work Phone: Immunizations Immunization Date Immunization Notes Care Provider Fa [facility] 07-21-2022 Covid-19, Mrna, Lnp- s, Bivalent, Pf, 50mcg/0.5ml or 25mcg/0.25ml Kate Norberto [employer] DIRECT[employer] Work Phone: [facility] 07-21-2022 SARS-COV-2 (COVID-19 ) Vaccine, Unspecified Kate Norberto [employer] DIRECTOR Work Phone: [facility] 06-29-2021 Influenza Vaccine, Quadrivalent, Adjuvanted Kate Norberto [employer] DIRECTOR Work Phone: [facility] 11-03-2020 COVID-19, mRNA, LNP- S, PF, 30mcg/0.3mL Dose Kate Thornton [employer] DIRECTOR [facility] Phone: [facility] 10-29-2020 COVID-19, mRNA, LNP- S, PF, 100mcg/0.5mL Dose Kate Thornton [employer] DIRECTOR Work Phone: [facility] 06-02-2020 Influenza Vaccine, Quadrivalent, Adjuvanted Kate Thornton [employer]RARY DIRECTOR Work Phone: [facility] 07-18-2018 Influenza, injectabl e, Madin Lili Canine Kidney, preservative free, quadrivalent Kate Thornton [employer] DIRECTOR Work Phone: [facility] 07-18-2018 pneumococcal polysaccharide vaccine, 23 valent Kate Thornton [employer] DIRECTOR Work Phone: [facility] 02-13-2017 pneumococcal conjuga te vaccine, 13 valent Kate Thornton [employer] DIRECTOR Work Phone: [facility] 01-23-2013 TD(adult) unspecifie d formulation Kate Thornton [employer] DIRECTOR Work Phone: [facility] Payers Date Payer Category Payer Medicare [id number] 2022 Medicare [employer] MEDICARE A ETNA MEDICARE PLAN (PPO) [id number] 2022-Present [phone] [address] [place] [address] [id number] 2022 Medicare HMO [employer] MEDICARE [id number] 1959 Self-pay 1950 Unknown [id number] 2.16.840.1.109605.3.579.2. 9 1950 Unknown [id number] 2.16.840.1.063688.3.579.2. 1259 1950 Unknown [id number] 2.16.840.1.251010.3.579.2. 1286 1950 Unknown [id number] 2.16.840.1.452755.3.579.2. 6 1950 Unknown [id number] 2.16.840.1.943822.3.579.2. 1286 1951 Unknown [id number] 2.16.840.1.597821.3.579.2. 1286 1950 Unknown [id number] 2.16.840.1.419145.3.579.2. 1286 Private Health Insurance EB [id number] 2.16.840.1.747328.19 Unknown [id number] 2.16.840.1.588631.3.579.2. 593 Unknown [id number] 2.16.840.1.474188.3.579.2. 531 Unknown [id number] 2.16.840.1.198739.3.579.2. 531 Unknown [id number] 2.16.840.1.108598.3.579.2. 531 Social History Date Type Detail Facility Start: 10-15-2020 End: 06-02-2023 Sex Assigned At [facility] Start: 08-17-2021 End: 10-03-2023 Tobacco smoking status NHIS Never smoked tobacco (finding) [facility] Start: 1950 Sex Assigned At Female [facility] Start: 09-20-2019 End: 11-28-2023 Tobacco use and exposure Smokeless tobacco non-user [facility] Start: 06-02-2023 End: 02-01-2024 Alcohol intake Current drinker of alcohol (finding) [facility] Start: 10-15-2020 End: 06-02-2023 History of Social function [facility] Adolescent depressio n screening assessment 0 [facility] Start: 09-20-2019 Alcohol Comment Social/occasional [facility] Start: 1950 Sex Assigned At Not on file [facility] Start: 04-09-2015 End: 09-19-2024 Sex Female (finding) [facility] Clinical Notes 12-04-2014 to 08-13-2024 Telephone Encounter [...] Medicare wellness Scheduled documented in this encounter [facility] 08-13-2024 Telephone encount er Note Rx sent in. She is due for a CV visit and Medicare wellness [facility] 08-13-2024 Telephone encount er Note Scheduled [facility] 07-10-2024 Miscellaneous Notes Formattin g of this note might be different from the original. ----- Message from JOSSELYN Babcock sent at 02/01/2024 1:08 PM EDT ----- Regarding: cv Due late jul, aug 27 with fasting labs LM on VM LM on VM LM on VM/ called 3 times documented in this encounter [facility] 07-10-2024 Telephone encount er Note ----- Message from JOSSELYN Babcock sent at 02/01/2024 1:08 PM EDT ----- Regarding: cv Due late jul, early aug 27 with fasting labs [facility] [place] [facility] 07-10-2024 Telephone encount er Note LM on VM [facility] 07-10-2024 Telephone encount er Note LM on VM [facility] 07-10-2024 Telephone encount er Note LM on VM/ called 3 times [facility] 11-28-2023 History of Presen t illness [...] acid; Future Stage 3a chronic kidney disease ([facility]) - Comprehensive metabolic panel; Future - [...] Gomez 11/28/23 1217 documented in this encounter [facility] 11-28-2023 Evaluation note Diagnosis Swelling of multiple joints- Primary Stage 3a chronic kidney disease ([facility]) Palpitations documented in this encounter [facility]01-30-2024 Evaluation note* Encounter Date Diagnosis Assessment [...] pain of right knee (ICD-10 - M25.561) [facility] 12-29-2022 Evaluation note* Encounter Date Diagnosis [...] care provider if no improvement of symptoms. [facility] 01-25-2022 Evaluation note* Encounter Date Diagnosis [...] derangement of left knee (ICD-10 - M23.92) [facility] 12-16-2021 Evaluation note* Encounter Date Diagnosis [...] derangement of left knee (ICD-10 - M23.92) [facility] 04-02-2015 History general Narrative - Reported* Type Description Date Medical History HTN Medical History Hyperlipidemia Medical History Basal Cell carcinoma of scalp Surgical History basal cell carcinoma of scalp ( Dr Llanos) 12/04/14 [facility] Evaluation noteNo assessment information available [facility] Work Phone: Evaluation note* Diagnosis Mixed [facility] Swelling of multiple joints- Primary [facility] Diagnosis Erosive (osteo)arthritis- Primary [facility] Diagnosis Erosive (osteo)arthritis- Primary [facility] Diagnosis Onset Date Resolution Status Acute medial meniscus tear of right knee acute Arthritis of right knee acut e [facility] Work Phone: evaluation note* Diagnosis Mixed hyperlipidemia [facility] filedocumented in this [facility] filedocumented in this encounter [facility] on filedocumented in this encounter [facility] filedocumented in this encounter [facility] filedocumented in this encounter [facility] on filedocumented in this [facility] (narrative)* Consultation (Routine) - Pending Review Specialty Diagnoses / Procedures Referred By Boyd kennedy Referred To Contact Rheumatology Diagnoses Erosive (osteo)arthritis Kate Thornton APRN-FNP [address] [place] [address] Dax Coello MD [address] [place] [address] Referral ID Status Reason Start Date Expiration Date Visits Requested Visits Authorized [id number] Pending Review Specialty Services Required 12/07/2023 12/06/2024 1 1 [facility] Summary Purpose Family History Relationship Condition Age at Onset Recorded Date/T bruce father Hypertension Unknown Heart disease Unknown Unknown Not Specified Unknown Hypertension Unknown natural son Malignant neoplasm Unknown Relationship Condition Age at Onset Recorded Date/T bruce father Hypertension Unknown Heart disease Unknown Unknown mother Unknown Hypertension Unknown son Malignant neoplasm Unknown Advance Directives Advance Directive Response Recorded Date/ Time Advance Directives No August 8:21pm Advance Directive Response Recorded Date/ Time Advance Directives No August 9:21pm Chief Complaint and Reason for Visit 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 N x M25.561 M17.11 Chief Complaint MRI RESULTS r31.29 Reason for Visit Acute medial meniscu s tear of right knee Arthritis of right knee Additional Source Comments INFORMATION SOURCE (unrecogn ized section and content) DATE CREATED AUTHOR 10/27/2020 [facility] DATE CREATED AUTHOR AUTHOR'S ORGANIZ ATION 12/15/2021 [facility] DATE CREATED AUTHOR AUTHOR'S ORGANIZ ATION 08/08/2023 [facility] EP[facility] DATE CREATED AUTHOR AUTHOR'S ORGANIZ ATION 12/05/2023 [facility] DATE CREATED AUTHOR AUTHOR'S ORGANIZ ATION 02/02/2024 [facility] DATE CREATED AUTHOR AUTHOR'S ORGANIZ ATION 02/02/2024 [facility] DATE CREATED AUTHOR AUTHOR'S ORGANIZ ATION 02/06/2024 [facility] REASON FOR VISIT (unrecogniz ed [...] October 24, 2023 End: October 24, 2023 [employer]forcing [employer] Worker Relationship Specialty Start Date End Date Kate Thornton, [employer] DIRECT[employer] [address] [place] [address] PCP - General Family Medicine 08/01/18 [employer] Worker Relationship Specialty Start Date End Date Kate Thornton [employer] [address] [place] [facility] [place] [address] PCP - [facility] Medicine 08/01/18 [employer] Worker Relationship Specialty Start Date End Date Kate Thornton [employer] [address] [place] [facility] [place] [address] PCP - General [facility] Medicine 08/01/18 Team Status: Inactive Member Role [...] January 23, 2024 End: January 23, 2024 Team Status: Inactive Member Role Status Dates NON STAFF Primary Care Provider Active Start: September 18, 2024 End: September 18, 2024 Dax Coello MD Attending Provider Active St art: September 18, 2024 End: September 18, 2024 Goals (unrecognized section and content) Goals [...] BE BASED ON THE PRIMARY CLINICAL RECORDS. [facility]. provides no warranty or guarantee of the accuracy or completeness of information in this document.
== END 2024-09-20 10:19 | disposition home or self-care (01) ==
LOC: RAD 10:21
PROVIDERS: PCP Family Medicine; Visit Provider Internal Medicine Rheumatology
DX: M06.9 Rheumatoid arthritis, unspecified (principal); D84.9 Immunodeficiency, unspecified; Z51.81 Encounter for therapeutic drug level monitoring; Z79.899 Other long term (current) drug therapy
CPT/HCPCS: 71046

== ENCOUNTER 2024-12-03 20:32 | Emergency (ER) | payer MEDICARE, SELFPAY ==
[2024-12-03] VITALS (7 sets, daily range): BP systolic 132; BP diastolic 106; PULSE 88–116; TEMP 37.2; O2SAT 95; BMI 39.1
--- OUTSIDE RECORDS SUMMARY | 2024-12-03 20:37 | XMS_ITS | CCD ---
Author Organization [facility] Care Team Providers Care Rehab Aid Name Role Phone REQUEST, NONE LISTED Attending Unavailable REQUEST, NONE LISTED Consulting Unavailable REQUEST, NONE LISTED Admitting Unavailable KUNS, KATE R Primary Care Unavailable Aldo Wynn Unavailable Tanna Paige Unavailable JOSEFINA MELISSA Attending Unavailable NON STAFF Primary Care Provider UnavailMD Aldo Diop Attending Provider KATE THORNTON Referring Unavailable KATE THORNTON Primary Care Unavailable NON STAFF Primary Care Provider UnavailMD Dax Elizabeth Attending Provider [phone] NON STAFF Primary Care Provider UnavailDax Elizabeth MD Attending Provider [phone] Unavailable Primary Care Provider UnavailAldo Diop Attending Unavailable NON STAFF Primary Care Unavailable Aldo Wynn Admitting Unavailable NON STAFF Primary Care Unavailable Dax Coello Admitting Unavailable Dax Coello Attending Unavailable NON STAFF Primary Care Unavailable Dax Coello Admitting Unavailable Dax Coello Attending Unavailable Aldo Wynn Attending Unavailable NON STAFF Primary Care Unavailable Aldo Wynn Admitting Unavailable Andres Broderick DO Primary Care Provider [phone] ANDRES BRODERICK Attending Unavailable ANDRES BRODERICK Primary Care Unavailable KATE THORNTON Attending Unavailable KATE THORNTON Referring Unavailable KATE THORNTON Primary Care Unavailable KATE THORNTON Attending Unavailable KATE THORNTON Referring Unavailable KATE THORNTON Primary Care Unavailable KUNS, KATE R Referring Unavailable KUNS, KATE R Primary Care Unavailable KUNS, KATE R Referring Unavailable KUNS, KATE R Primary Care Unavailable ANDRES BRODERICK Referring Unavailable ANDRES BRODERICK Primary Care Unavailable Kuns LITIGATION LEGAL ASSISTANT-ELEMENTARY SUPERVISORKate Primary Care Provider Allergies Allergy Classification Reported Allergen(s) Allergy Type Date of Onset Reaction(s) Facility (4 sources) Amino Acids; Translations: [LISINOPRIL] Drug Allergy 09-20-2019 [facility] Repository (17 sources) Lisinopril Drug Allergy [facility] (1 source) Lisinopril Drug Allergy 11-07-2023 [facility] Repository Medications Current Medications Medication Drug Class(es) Dates Sig (Normalized) Sig (Original) ALPRAZolam 0.25 mg oral tablet (18 sources) Benzodiazepine Start: 07-18-2022 End: 02-01-2024 take 1 tablet by mouth twice daily as needed for anxiety ALPRAZolam (XANAX) 0.25 mg tablet Indications: Situational anxiety Take 1 tablet (0.25 mg total) by mouth 2 (two) times a day as needed for anxiety. 30 tablet 1 02/01/2024 Active take 1 tablet by mouth every eig ht hours Xanax 0.25 MG 1 tablet Orally Three times a day Active amLODIPine 10 mg oral tablet (20 sources) Dihydropyridine Calcium Channel Ariana Start: 05-11-2023 [...] aspirin 81 mg delayed release oral tablet (15 sources) Platelet Aggregation Inhibitor, Nonsteroidal Anti-inflammatory Drug Start: 11-07-2023 take 1 tablet by mouth once daily Aspirin 81 mg tablet,delayed release (DR/EC) Active 81 MG PO Daily November 07, 2023 12:00am FreeTextSi tablet Orally Once a day; Note: Source Status: Taking; Provider: Tianna Carlson ( ) cholecalciferol 0.025 mg oral capsule (13 sources) Vitamin D cholecalciferol , vitamin D3, 25 mcg (1,000 unit) capsule daily. Active FLUoxetine 20 mg oral capsule (20 sources) Serotonin Reuptake Inhibitor Start: 11-19-2024 take 1 capsule by mouth in the morning FLUoxetine (PROzac) 20 mg capsule TAKE 1 CAPSULE BY MOUTH IN THE MORNING 90 capsule 1 11/19/2024 Active Start: 11-07-2023 take 1 capsule by mo uth once daily in the morning Fluoxetine 10 mg capsule Active 10 MG PO Daily November 07, 2023 12:00am [employer]Text[employer] capsule in the morning Orally Once a day; Note: Source Status: Taking; Provider: Tianna Carlson ( ) Start: 02-28-2023 End: 11-19-2024 take 1 capsule by mouth in the morning FLUoxetine (PROzac) 20 mg capsule Take 1 capsule (20 mg total) by mouth in the morning. 90 capsule 08/13/2024 11/19/2024 Discontinued take 1 capsule by mo uth every twenty-four hours FLUoxetine HCl 10 MG 1 capsule in the morning Orally Once a day Active take 1 capsule by mo uth once daily in the morning FLUoxetine HCl 10 MG 1 capsule in the morning Orally Once a day Active leflunomide 10 mg oral tablet (4 sources) Antirheumatic Agent Start: 09-19-2024 leflunomid e (ARAVA) 10 mg tablet Take 1 tablet (10 mg total) by mouth. 09/19/2024 Active Start: 08-21-2024 End: 10-03-2024 leflunomide (ARAVA) 20 mg ta blet Take 1 tablet (20 mg total) by mouth. 08/21/2024 10/03/2024 Discontinued (Dose adjustment) dpjtktyyptlm-gado-uyjsg acid (CENTRUM) 18-400 mg-mcg tablet (12 sources) take 1 tablet by mouth in the morning fdpgssiinobs-oflg-kmnoh acid (CENTRUM) 18-400 mg-mcg tablet Take 1 tablet by mouth in the morning. Active take 1 tablet by mele th in the morning sjnxhieymkzg-ripf-ewtik acid (CENTRUM) 1 8-400 mg-mcg tablet Take 1 tablet by mouth in the morning. 0 Active omeprazole 20 mg delayed release oral capsule (17 sources) Proton Pump Inhibitor take 1 capsule by mouth every other day omeprazole (PriLOSEC) 20 mg capsule Take 1 capsule (20 mg total) by mouth every other day. Active take 1 capsule by mouth in the m orning omeprazole (PriLOSEC) 20 mg capsule Take 1 capsule (20 mg total) by mouth in the morning. Active predniSONE 5 mg oral tablet (9 sources) Start: 01-23-2024 take 2 tablets by [...] Active rosuvastatin calcium 20 mg oral tablet (20 sources) HMG-CoA Reductase Inhibitor Start: 11-19-2024 take 1 tablet by mouth in the morning rosuvastatin (CRESTOR) 20 mg tablet Indications: Mixed hyperlipidemia TAKE 1 TABLET BY MOUTH IN THE MORNING 90 tablet 1 11/19/2024 Active Start: 05-11-2023 End: 11-19-2024 take 1 tablet by mouth in the morning rosuvastatin (CRESTOR) 20 mg tablet Indications: Mixed hyperlipidemia Take 1 tablet (20 mg total) by mouth in the morning. 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] Onset: 10-02-2019 10-02-2019 Chronic Chronic kidney disease (16 sources) Chronic kidney disease stage 3A ; Translations: [Stage 3a chronic kidney disease] Onset: 04-02-2020 Resolved: 10-03-2024 07-18-2022 Chronic Chronic kidney disease (2 sources) Chronic kidney disease; Translations: [Chronic kidney disease, stage 3a] Onset: 07-18-2022 Disorders of lipid metabolism (20 sources) Hyperlipidemia; Translations: [Hyperlipidemia, unspecified] Onset: 02-11-2016 07-06-2022 Chronic Diverticulosis and diverticulitis (13 sources) Diverticulosis of large intestine; Translations: [Diverticulosis of large intestine without perforation or abscess without bleeding] Onset: 10-02-2019 10-02-2019 Chronic Essential hypertension (17 sources) Essential hypertension; Translations: [Essential (primary) hypertension] Onset: 02-11-2016 07-06-2022 Chronic Gastritis and duodenitis (4 sources) Chronic gastritis; Translations: [Unspecified chronic gastritis without bleeding] Onset: 10-03-2024 10-03-2024 Chronic Hypertension with complications and secondary hypertension (16 sources) Chronic kidney disease due to hypertension; [...] knee, initial encounter] 11-03-2023 Episodic Mood disorders (14 sources) Depressive disorder; Translations: [Depressive disorder] Onset: 02-11-2016 07-06-2022 Chronic Nutritional deficiencies (14 sources) Vitamin D deficiency; Translations: [Vitamin D deficiency, unspecified] Onset: 06-23-2021 07-18-2022 Chronic Osteoarthritis (20 sources) Arthritis of left knee; Translations: [Unilateral primary osteoarthritis, left knee] Onset: 08-19-2021 Resolved: 09-28-2021 Chronic Other gastrointestinal disorders (13 sources) Irritable bowel syndrome; Translations: [Irritable bowel syndrome without diarrhea] Onset: 02-11-2016 07-06-2022 Chronic Other non-epithelial cancer of skin (4 sources) Basal cell carcinoma of scalp; Translations: [Basal cell carcinoma of scalp] Episodic Other non-traumatic joint disorders (1 source) Polyarthritis, unspecified; Translations: [Polyarthritis, unspecified] Onset: 01-23-2024 Chronic Other non-traumatic joint disorders (1 source) Pain in right knee Episodic Other nutritional; endocrine; and metabolic disorders (3 sources) Severe obesity; Translations: [Class 2 severe obesity due to excess calories with serious comorbidity and body mass index (BMI) of 39.0 to 39.9 in adult ([facility])] Onset: 10-03-2024 10-03-2024 Chronic Otitis media and related conditions (1 source) Otitis media, unspecified, bilateral Episodic Rheumatoid arthritis and related disease (1 source) Rheumatoid arthritis, unspecified; Translations: [Rheumatoid arthritis, unspecified] Onset: 09-18-2024 Chronic Screening and history of mental health and substance abuse codes (1 source) Patient encounter status; Translations: [Encounter for screening for depression] 09-25-2024 Episodic Sprains and strains (4 sources) Sprain of knee; Translations: [Sprain of unspecified site of left knee, initial encounter] 08-16-2023 Episodic Comment on above: Problem List clean-u p per request of Phys. EHR Cmte Thyroid disorders (1 source) Hypothyroidism Onset: 10-03-2024 Chronic Unclassified (1 source) Unilateral primary osteoarthritis, right knee; Translations: [Unilateral primary osteoarthritis, right knee] Onset: 10-24-2023 Unclassified (1 source) Pain in right knee; Translations: [Pain in right knee] Onset: 10-03-2023 Unclassified (1 source) MAW Onset: 09-17-2024 Past or Other Problems Problem Classification Problem Date Documented Da te Episodic/Chronic Cardiac dysrhythmias (3 sources) Palpitations; Translations: [Palpitations] Onset: 11-28-2023 11-28-2023 Episodic Diabetes mellitus without complication (16 sources) Impaired fasting glycemia; Translations: [Impaired fasting glucose] Onset: 02-12-2016 07-06-2022 Episodic Gastrointestinal hemorrhage (13 sources) Rectal hemorrhage; Translations: [Hemorrhage of anus and rectum] Onset: 09-20-2019 10-02-2019 Episodic Mood disorders (13 sources) Mood disorders Onset: 02-01-2024 Resolved: 09-17-2024 09-17-2024 Other female genital disorders (13 sources) Polyp at cervical os; Translations: [Polyp of cervix uteri] Onset: 09-18-2019 07-06-2022 Episodic Other non-traumatic joint disorders (2 sources) Pain in left knee Onset: 08-19-2021 Resolved: 09-28-2021 Episodic Other non-traumatic joint disorders (3 sources) Effusion, unspecified joint; Translations: [Effusion, unspecified joint] Onset: 11-28-2023 Episodic Other non-traumatic joint disorders (2 sources) Effusion of joint of multiple sites; Translations: [Effusion, unspecified joint] 11-28-2023 Episodic Other nutritional; endocrine; and metabolic disorders (13 sources) Morbid obesity; Translations: [Morbid (severe) obesity due to excess calories] Onset: 09-18-2019 Resolved: 11-28-2023 11-28-2023 Chronic Results Test Name Value Interpretation Reference Range Facility BASIC METABOLIC PANLon 10-03 Anion gap [Moles/Vol] 9 mmol/L Normal 5-15 [facility] Comment on above: Performed By: #### MYRIAM Castro MP #### [facility] ([id number]) [address] [place] [address] Calcium [Mass/Vol] 9.4 mg/dL Normal 8.5-10.5 [facility] Comment on above: Performed By: #### MYRIAM Castro MP #### [facility] ([id number]) [address], [address] [place] [address] Chloride [Moles/Vol] 106 mmol/L Normal 98-109 [facility] Comment on above: Performed By: #### JEANA Castro MP1C #### [facility] ([id number]) [address], [address] [place] [address] CO2 [Moles/Vol] 26 mmol/L Normal 22-32 [facility] Comment on above: Performed By: #### MYRIAM Castro MP #### [facility] ([id number]) [address] [place] [address] Creatinine [Mass/Vol] 1.10 mg/dL High 0.40-1.00 [facility] Comment on above: Result Comment: METH OD TRACEABLE TO IDMS STANDARD Performed By: #### MYRIAM Castro MP #### [facility] ([id number]) [address], [address] [place] [address] GFR/1.73 sq M.predicted among non-blacks MDRD (S/P/Bld) [Vol rate/Area] 53 mL/min/{1.73_m2} Low >59 [facility] Comment on above: Result Comment: Reported eGFR is based on the CKD-EPI 2020 equation that does not use a race coefficient. Performed By: #### MYRIAM Castro MP #### [facility] ([id number]) [address], [address] [place] [address] Glucose [Mass/Vol] 110 mg/dL High 65-99 [facility] Comment on above: Performed By: #### MYRIAM Castro MP #### [facility] ([id number]) [address], [address] [place] [address] Potassium [Moles/Vol] 3.8 mmol/L Normal 3.5-5.0 [facility] Comment on above: Performed By: #### MYRIAM Castro MP #### [facility] ([id number]) [address], [address] [place] [address] Sodium [Moles/Vol] 141 mmol/L Normal 134-146 [facility] Comment on above: Performed By: #### MYRIAM Castro MP #### [facility] ([id number]) [address], [address] [place] [address] Urea nitrogen [Mass/Vol] 18 mg/dL Normal 5-27 [facility] Comment on above: Performed By: #### MYRIAM Castro MP #### [facility] ([id number]) [address], [address] [place] [address] HGB A1C (GLYCO-HGB)on 2024 Glucose [Mass/Vol] 105 mg/dL Normal [facility] Comment on above: Performed By: #### MYRIAM Castro MP #### [facility] ([id number]) [address], [address] [place] [address] HbA1c (Bld) [Mass fraction] 5.3 % Normal 4.4-5.6 [facility] Comment on above: Result Comment: NOTE ADA Guidelines Result HgbA1c Normal : less than 5.7 % Prediabetes : 5.7 % to 6.4 % Diabetes : > 6.4 % Use with caution in patients with abnormal hemoglobin variants as the half-life of red blood cells and in vivo glycation rates are affected. Performed By: #### B MP, HA1C #### [facility] ([id number]) [address] [place] [address], [address] [place] [address] Hep C Ab wRfx to Qnt PCRon 0 09-18-2024 Hepatitis C Virus Antibody Non-Reactive Normal Non Reactive [facility] Comment on above: Performed By: #### H BCAB, HBSAG, HBSAB, QUANT TB, HCV RX PCR #### [facility] , Interpretation Hepatitis C Comment Normal . [facility] Comment on above: Result Comment: Not infected with HCV unless early or acute infection is suspected (which may be delayed in an immunocompromised individual), or other evidence exists to indicate HCV infection. Performed By: #### H BCAB, HBSAG, HBSAB, QUANT TB, HCV RX PCR #### [facility] , Hepatitis B Core Antibodyon 09-18-2024 Hepatitis B Core Antibody Negative Normal Negative [facility] Comment on above: Result Comment: Perf ormed at: - [facility] [address] [id number] Social Media Content Manager: Sly Mack PhD, Phone: [phone] Performed By: #### H BCAB, HBSAG, HBSAB, QUANT TB, HCV RX PCR #### [facility] , Hepatitis B Surface Antibody on 09-18-2024 Hepatitis B Surface Antibody Non-Reactive Normal . [facility] Comment on above: Result Comment: Non Reactive: Not immune to HBV infection. Equivocal: Unable to determine if anti-HBs is present at levels consistent with immunity. Reactive: Anti-HBs concentration detected at greater than 10 mIU/mL. Individual is considered to be immune to infection with HBV. Performed By: #### H BCAB, HBSAG, HBSAB, QUANT TB, HCV RX PCR #### [facility] , Hepatitis B Surface Antigeno n 09-18-2024 HBsAg Screen Negative Normal Negative [facility] Comment on above: Result Comment: PERF ORMED BY: [facility] [place] [address] PATHOLOGIST RAIL BENDER HASMUKH COLMENARES M.D. Performed By: #### H BCAB, HBSAG, HBSAB, QUANT TB, HCV RX PCR #### [facility] , QuantiFERON TB Goldon 2024 QFTB Criteria Comment Normal . [facility] Comment on above: Result Comment: Yonas tiFERON-TB Gold Plus is a qualitative indirect test for M tuberculosis infection (including disease) and is intended for use in conjunction with risk assessment, radiography, and other medical and diagnostic evaluations. The QuantiFERON-TB Gold Plus result is determined by subtracting the Nil value from either TB antigen (Ag) value. The Mitogen tube serves as a control for the test. Performed By: #### H BCAB, HBSAG, HBSAB, QUANT TB, HCV RX PCR #### [facility] , Quant TB Ag Value 0.03 [IU]/mL Normal . [facility] Comment on above: Performed By: #### H BCAB, HBSAG, HBSAB, QUANT TB, HCV RX PCR #### [facility] , Quant TB Gold Plus Negative Normal Negative [facility] Comment on above: Result Comment: No r esponse to M tuberculosis antigens detected. Infection with M tuberculosis is unlikely, but high risk individuals should be considered for additional testing (ATS/IDSA/CDC Clinical Practice Guidelines, 2017). The reference range is an Antigen minus Nil result of <0.35 IU/mL. The specimen received for QuantiFERON testing was incubated by the ordering institution. Specific procedures outlined in our Directory of Services and in the package insert for the QuantiFERON Gold (In Tube) test must be followed to enable for proper stimulation of cells for the production of interferon gamma. Chemiluminescence immunoassay methodology Performed at: CB - [facility] [id number] Social Media Content Manager: Sly Mack PhD, Phone: [phone] PERFORMED BY: [facility] [place] [address] PATHOLOGIST RAIL BENDER HASMUKH COLMENARES M.D. Performed By: #### H BCAB, HBSAG, HBSAB, QUANT TB, HCV RX PCR #### [facility] , Quant TB2 Ag Value 0.03 [IU]/mL Normal . [facility] Comment on above: Performed By: #### H BCAB, HBSAG, HBSAB, QUANT TB, HCV RX PCR #### [facility] , Quantiferon Nil Value 0.02 [IU]/mL Normal . [facility] Comment on above: Performed By: #### H BCAB, HBSAG, HBSAB, QUANT TB, HCV RX PCR #### [facility] , Quantiferon TB Mitogen >10.[address] [facility] Comment on above: Performed By: #### H BCAB, HBSAG, HBSAB, QUANT TB, HCV RX PCR #### [facility] , COMPREHENSIVE METABOLIC PANE Bijan 02-01-2024 Albumin [Mass/Vol] 4.0 g/dL Normal 3.2-5.3 [facility] Comment on above: Performed By: #### C JASMYN, 57999-8 #### [facility] ([id number]) [address], [address] [place] [address] ALP [Catalytic activity/Vol] 103 U/L Normal 39-130 [facility] Comment on above: Performed By: #### Pete VINES, 95307-6 #### [facility] ([id number]) [address], [address] [place] [address] Anion gap [Moles/Vol] 10 mmol/L Normal 5-15 [facility] Comment on above: Performed By: #### Pete VINES, 90656-5 #### [facility] ([id number]) [address] [place] [address] AST [Catalytic activity/Vol] 15 U/L Normal 0-41 [facility] Comment on above: Performed By: #### Pete VINES, 25377-4 #### [facility] ([id number]) [address], [address] [place] [address] Bilirubin [Mass/Vol] 0.4 mg/dL Normal 0.3-1.2 [facility] Comment on above: Performed By: #### Pete VINES 45087-0 #### [facility] ([id number]) [address] [place] [address] Calcium [Mass/Vol] 8.9 mg/dL Normal 8.5-10.5 [facility] Comment on above: Performed By: #### Pete VINES 93471-7 #### [facility] ([id number]) [address] [place] [address] Chloride [Moles/Vol] 105 mmol/L Normal 98-109 [facility] Comment on above: Performed By: #### Pete VINES 69062-8 #### [facility] ([id number]) [address], [address] [place] [address] CO2 [Moles/Vol] 24 mmol/L Normal 22-32 [facility] Comment on above: Performed By: #### Pete VINES 35641-3 #### [facility] ([id number]) [address] [place] [address] Creatinine [Mass/Vol] 1.00 mg/dL Normal 0.40-1.00 [facility] Comment on above: Result Comment: METH OD TRACEABLE TO IDMS STANDARD Performed By: #### Pete VINES 39453-0 #### [facility] ([id number]) [address], [address] [place] [address] METHOD TRACEABLE TO IDMS STANDARD Glucose [Mass/Vol] 100 mg/dL High 65-99 [facility] Comment on above: Performed By: #### Pete VINES, 50076-6 #### [facility] ([id number]) [address], [address] [place] [address] Potassium [Moles/Vol] 4.3 mmol/L Normal 3.5-5.0 [facility] Comment on above: Performed By: #### Pete VINES, 62665-6 #### [facility] ([id number]) [address], [address] [place] [address] Protein [Mass/Vol] 7.6 g/dL Normal 6.0-8.0 [facility] Comment on above: Performed By: #### Pete VINES, 11641-6 #### [facility] ([id number]) [address], [address] [place] [address] Sodium [Moles/Vol] 139 mmol/L Normal 134-146 [facility] Comment on above: Performed By: #### Pete VINES, 36925-6 #### [facility] ([id number]) [address], [address] [place] [address] Urea nitrogen [Mass/Vol] 21 mg/dL Normal 5-27 [facility] Comment on above: Performed By: #### Pete VINES, 91061-6 #### [facility] ([id number]) [address], [address] [place] [address] ALT [Catalytic activity/Vol] 15 U/L Normal 0-31 [facility] Comment on above: Performed By: #### Pete VINES, 96709-2 #### [facility] ([id number]) [address], [address] [place] [address] GFR/1.73 sq M.predicted among non-blacks MDRD (S/P/Bld) [Vol rate/Area] 60 mL/min/{1.73_m2} Normal >59 [facility] Comment on above: Result Comment: Reported eGFR is based on the CKD-EPI 2020 equation that does not use a race coefficient. Performed By: #### Pete VINES, 92201-4 #### [facility] ([id number]) [address], [address] [place] [address] Comprehensive metabolic pane bijan 02-01-2024 ALT No additional P-5'-P [Catalytic activity/Vol] 15 U/L 0 - 31 U/L [facility] eGFR (CKD-EPI)non-race dependent 60 - PINF [facility] Comment on above: Reported eGFR is based on the CKD-EPI 2020 equation that does not use a race coefficient. Interpretation and review of laboratory results Abnormal [facility] Lipid 1996 panelon Cholesterol [Mass/Vol] 189 mg/dL Normal 150-200 [facility] Comment on above: Performed By: #### Pete VINES, 77159-9 #### [facility] ([id number]) [address], [address] [place] [address] Cholesterol in HDL [Mass/Vol] 65 mg/dL Normal >39 [facility] Comment on above: Result Comment: HDL <40 mg/dL - High Risk HDL > or = 40mg/dL- Desirable HDL >60 mg/dL - Negative Risk Performed By: #### Pete VINES, 57493-9 #### [facility] ([id number]) [address], [address] [place] [address] Cholesterol in LDL [Mass/Vol] 106 mg/dL Normal <130 [facility] Comment on above: Result Comment: LDL <100 mg/dL - Desirable LDL >160 mg/dL - High Risk Performed By: #### Pete VINES, 78076-2 #### [facility] ([id number]) [address], [address] [place] [address] Cholesterol in VLDL [Mass/Vol] 18 mg/dL Normal 0-30 [facility] Comment on above: Performed By: #### C JASMYN, 94765-4 #### [facility] ([id number]) [address], [address] [place] [address] CHOLESTEROL:HDL 2.9 Normal 1.0-5.0 [facility] Comment on above: Performed By: #### C JASMYN, 94298-9 #### [facility] ([id number]) [address], [address] [place] [address] Triglyceride [Mass/Vol] 91 mg/dL Normal 27-150 [facility] Comment on above: Performed By: #### C JASMYN, 22269-2 #### [facility] ([id number]) [address], [address] [place] [address] MANUEL Antinuclear Antibodieson 01-23-2024 Antinuclear Abs, IFA Negative Normal . [facility] Comment on above: Result Comment: Nega tive <1:80 Borderline 1:80 Positive >1:80 ICAP nomenclature: AC-0 For more information about Hep-2 cell patterns use ANApatterns.org, the official website for the International Consensus on Antinuclear Antibody (MANUEL) Patterns (ICAP). Performed at: - [facility] [id number] Social Media Content Manager: Sly Mack PhD, Phone: [phone] PERFORMED BY: [facility] [address] [place] [address] PATHOLOGIST RAIL BENDER AYO CRUZ M.D. Performed By: #### C K, T4F, CRP, CMP, CBC, ESR, TSH3 ####[facility]#### ALDOLASE, MANUEL ####[facility] , Alanine aminotransferase [En zymatic activity/volume] in Serum or PlasmaOrdered By: Dax Coello on 01-23-2024 ALT [Catalytic activity/Vol] 24 U/L Normal 7-52 [facility] Comment on above: Performed By: #### C K, T4F, CRP, CMP, CBC, ESR, TSH3 #### [facility] [address] [place] [address] #### ALDOLASE, MANUEL #### [facility] , Albumin [Mass/volume] in Ser um or Plasma by Bromocresol green (BCG) dye binding methoOrdered By: Dax Coello on 01-23-2024 Albumin BCG dye [Mass/Vol] 4.3 g/dL 3.5-5.7 [facility] Aldolaseon 01-23-2024 Aldolase 3.3 U/L Normal 3.3-10.3 [facility] Comment on above: Result Comment: Perf ormed at: CB - [facility] [place] [id number] Social Media Content Manager: Sly Mack PhD, Phone: [phone] PERFORMED BY: [place] [address] PATHOLOGIST RAIL BENDER AYO CRUZ M.D. Performed By: #### C K, T4F, CRP, CMP, CBC, ESR, TSH3 ####[address]#### ALDOLASE, MANUEL ####[facility] , Alkaline phosphatase [Enzyma tic activity/volume] in Serum or PlasmaOrdered By: Dax Coello on 01-23-2024 ALP [Catalytic activity/Vol] 119 U/L High 34-104 [facility] Comment on above: Performed By: #### C K, T4F, CRP, CMP, CBC, ESR, TSH3 #### [facility] [address] [place] [address] [place] #### ALDOLASE, MANUEL #### [facility] , Aspartate aminotransferase [ Enzymatic activity/volume] in Serum or PlasmaOrdered By: Dax Coello on 01-23-2024 AST [Catalytic activity/Vol] 30 U/L Normal 13-39 [facility] Comment on above: Performed By: #### C K, T4F, CRP, CMP, CBC, ESR, TSH3 #### [facility] [address] #### ALDOLASE, MANUEL #### [facility] , Automated basophil %Ordered By: Dax Coello on 01-23-2024 Basophils/100 WBC (Bld) 0.9 % Normal . [facility] Comment on above: Performed By: #### C K, T4F, CRP, CMP, CBC, ESR, TSH3 ####[facility] [place] [address] [place]#### ALDOLASE, MANUEL ####[facility] , Automated basophil countOrde red By: Dax Coello on 01-23-2024 Basophils (Bld) [#/Vol] 0.1 10*3/uL Normal 0.0-0.2 [facility] Comment on above: Performed By: #### C K, T4F, CRP, CMP, CBC, ESR, TSH3 ####[facility] [place] [address] [place]#### ALDOLASE, MANUEL ####[facility] , Automated blood monocyte cou ntOrdered By: Dax Coello on 01-23-2024 Monocytes (Bld) [#/Vol] 0.5 10*3/uL Normal 0.0-0.8 [facility] Comment on above: Performed By: #### C K, T4F, CRP, CMP, CBC, ESR, TSH3 ####[facility] [place] [address] [place]#### ALDOLASE, MANUEL ####[facility] , Automated eosinophil %Ordere d By: Dax Vergararow on 01-23-2024 Eosinophils/100 WBC (Bld) 2.4 % Normal . [facility] Comment on above: Performed By: #### C K, T4F, CRP, CMP, CBC, ESR, TSH3 ####[place] [address] [place] [address] [place]#### ALDOLASE, MANUEL ####[facility] , Automated eosinophil countOr dered By: Dax Coello on 01-23-2024 Eosinophils (Bld) [#/Vol] 0.2 10*3/uL Normal 0.0-0.45 [facility] Comment on above: Performed By: #### C K, T4F, CRP, CMP, CBC, ESR, TSH3 ####[place] [address] [place]#### ALDOLASE, MANUEL ####[facility] , Automated monocyte %Ordered By: Dax Coello on 01-23-2024 Monocytes/100 WBC (Bld) 6.8 % Normal . [facility] Comment on above: Performed By: #### C K, T4F, CRP, CMP, CBC, ESR, TSH3 ####[place] [address] [place]#### ALDOLASE, MANUEL ####[facility] , Automated neutrophil %Ordere d By: Dax Coello on 01-23-2024 Neutrophils/100 WBC (Bld) 61.7 % Normal . [facility] Comment on above: Performed By: #### C K, T4F, CRP, CMP, CBC, ESR, TSH3 ####[place] [address] [place]#### ALDOLASE, MANUEL ####[facility] , Bilirubin.total [Mass/volume ] in Serum or PlasmaOrdered By: Dax Coello on 01-23-2024 Bilirubin [Mass/Vol] 0.5 mg/dL Normal 0.3-1.0 [facility] Comment on above: Performed By: #### C K, T4F, CRP, CMP, CBC, ESR, TSH3 #### [facility] [address] [place] [address] [place] #### ALDOLASE, MANUEL #### [facility] , C reactive protein [Mass/vol ume] in Serum or PlasmaOrdered By: Dax Coello on 01-23-2024 CRP [Mass/Vol] 1.0 mg/dL 0.0-0.5 [facility] C-Reactive Proteinon 024 C-Reactive Protein 1.0 mg/dL High 0.0-0.5 [facility] Comment on above: Performed By: #### C K, T4F, CRP, CMP, CBC, ESR, TSH3 #### [facility] [address] [place] [address] [place] #### ALDOLASE, MANUEL #### [facility] , Calcium [Mass/volume] in Ser um or PlasmaOrdered By: Dax Vergararow on 01-23-2024 Calcium [Mass/Vol] 9.6 mg/dL Normal 8.6-10.3 [facility] Comment on above: Performed By: #### C K, T4F, CRP, CMP, CBC, ESR, TSH3 #### [facility] [address] [place] [address] [place] #### ALDOLASE, MANUEL #### [facility] , Carbon dioxide, total [Moles /volume] in Serum or PlasmaOrdered By: Dax Vergararow on 01-23-2024 CO2 [Moles/Vol] 25.5 mmol/L Normal 21.0-31.0 [facility] Comment on above: Performed By: #### C K, T4F, CRP, CMP, CBC, ESR, TSH3 #### [facility] [address] [place] [address] [place] #### ALDOLASE, MANUEL #### [facility] , Chloride [Moles/volume] in S beatris or PlasmaOrdered By: Dax Mode on 01-23-2024 Chloride [Moles/Vol] 107 mmol/L Normal 98-107 [facility] Comment on above: Performed By: #### C K, T4F, CRP, CMP, CBC, ESR, TSH3 #### [place] [address] [place] #### ALDOLASE, MANUEL #### [facility] , Complete Blood Count Auto Di ffon 01-23-2024 Mean Corpuscular HGB Conc 33.2 g/dL Normal 32.0-35.0 [facility] Comment on above: Performed By: #### C K, T4F, CRP, CMP, CBC, ESR, TSH3 ####[place] [address] [place]#### ALDOLASE, MANUEL ####[facility] , NRBC% 0.2 /100{WBC} Normal 0-0.5 [facility] Comment on above: Performed By: #### C K, T4F, CRP, CMP, CBC, ESR, TSH3 ####[place] [address] [place]#### ALDOLASE, MANUEL ####[facility] , Comprehensive Metabolic Pane bijan 01-23-2024 Albumin [Mass/Vol] 4.3 g/dL Normal 3.5-5.7 [facility] Comment on above: Performed By: #### C K, T4F, CRP, CMP, CBC, ESR, TSH3 #### [address] #### ALDOLASE, MANUEL #### [facility] , GFR/1.73 sq M.predicted MDRD (S/P/Bld) [Vol rate/Area] 47.618 mL/min/{1.73_m2} Normal [facility] Comment on above: Performed By: #### C K, T4F, CRP, CMP, CBC, ESR, TSH3 #### [place] [address] [place] #### ALDOLASE, MANUEL #### [facility] , Creatine kinase [Enzymatic a ctivity/volume] in Serum or PlasmaOrdered By: Dax Coello on 01-23-2024 CK [Catalytic activity/Vol] 69 U/L Normal 30-223 [facility] Comment on above: Result Comment: PERF ORMED BY: [place] [address] PATHOLOGIST RAIL BENDER AYO CRUZ M.D. Performed By: #### C K, T4F, CRP, CMP, CBC, ESR, TSH3 #### [address] #### ALDOLASE, MANUEL #### [facility] , Creatinine [Mass/volume] in Serum or PlasmaOrdered By: Dax Coello on 01-23-2024 Creatinine [Mass/Vol] 1.21 mg/dL High 0.60-1.20 [facility] Comment on above: Performed By: #### C K, T4F, CRP, CMP, CBC, ESR, TSH3 #### [address] #### ALDOLASE, MANUEL #### [facility] , Erythrocyte Sedimentation Ra solo 01-23-2024 ESR (Bld) [Velocity] 58 mm/h High 0-29 [facility] Comment on above: Result Comment: PERF ORMED BY: [place] [address] PATHOLOGIST RAIL BENDER AYO CRUZ M.D. Performed By: #### C K, T4F, CRP, CMP, CBC, ESR, TSH3 ####[address]#### ALDOLASE, MANUEL ####[facility] , Erythrocyte distribution wid th [Ratio] by Automated countOrdered By: Dax Coello on 01-23-2024 Erythrocyte distribution width (RBC) [Ratio] 15.3 % Normal 11.9-15.3 [facility] Comment on above: Performed By: #### C K, T4F, CRP, CMP, CBC, ESR, TSH3 ####[address] [place] [address] [place]#### ALDOLASE, MANUEL ####[facility] , Erythrocyte sedimentation ra te by Photometric methodOrdered By: Daxsilvia Coello on 01-23-2024 ESR Photometric method (Bld) [Velocity] 58 mm/hr 0-29 [facility] Erythrocytes [#/volume] in B lood by Automated countOrdered By: Dax Coello on 01-23-2024 RBC (Bld) [#/Vol] 5.04 10*6/uL High 3.60-5.00 [facility] Comment on above: Performed By: #### C K, T4F, CRP, CMP, CBC, ESR, TSH3 ####[facility] [address]#### ALDOLASE, MANUEL ####[facility] , Glucose [Mass/volume] in Ser um or PlasmaOrdered By: Dax Coello on 01-23-2024 Glucose [Mass/Vol] 110 mg/dL High 70-100 [facility] Comment on above: ADA recommended refe rence rangeRandom Glucose Reference Range is dependent on time and content of last meal. Glucose of more than 200 mg/dL in a nonstressed, ambulatory subject supports the diagnosis of Diabetes Mellitus. Result Comment: Calder om Glucose Reference Range is dependent on time and content of last meal. Glucose of more than 200 mg/dL in a nonstressed, ambulatory subject supports the diagnosis of Diabetes Mellitus. ADA recommended reference range Performed By: #### C K, T4F, CRP, CMP, CBC, ESR, TSH3 #### [facility] [address] [place] [address] [place] #### ALDOLASE, MANUEL #### [facility] , Hematocrit [Volume Fraction] of Blood by Automated countOrdered By: Dax Coello on 01-23-2024 Hematocrit (Bld) [Volume fraction] 43.1 % Normal 34.0-46.4 [facility] Comment on above: Performed By: #### C K, T4F, CRP, CMP, CBC, ESR, TSH3 ####[address]#### ALDOLASE, MANUEL ####[facility] , Hemoglobin [Mass/volume] in BloodOrdered By: Dax Vergararow on 01-23-2024 Hemoglobin (Bld) [Mass/Vol] 14.3 g/dL Normal 11.8-15.4 [facility] Comment on above: Performed By: #### C K, T4F, CRP, CMP, CBC, ESR, TSH3 ####[address]#### ALDOLASE, MANUEL ####[facility] , Leukocytes [#/volume] correc luis alfredo for nucleated erythrocytes in Blood by Automated counOrdered By: Dax Vergararow on 01-23-2024 WBC corrected for nucl RBC Auto (Bld) [#/Vol] 7.1 10*3/uL 3.8-11.6 [facility] Leukocytes [#/volume] in Blo od by Automated countOrdered By: Daxsilvia Coello on 01-23-2024 WBC (Bld) [#/Vol] 7.1 10*3/uL Normal 3.8-11.6 [facility] Comment on above: Performed By: #### C K, T4F, CRP, CMP, CBC, ESR, TSH3 ####[address]#### ALDOLASE, MANUEL ####[facility] , Lymphocytes [#/volume] in Bl ood by Automated countOrdered By: Dax Coello on 01-23-2024 Lymphocytes (Bld) [#/Vol] 2.0 10*3/uL Normal 1.00-4.8 [facility] Comment on above: Performed By: #### C K, T4F, CRP, CMP, CBC, ESR, TSH3 ####[place] [address] [place]#### ALDOLASE, MANUEL ####[facility] , Lymphocytes/100 leukocytes i n Blood by Automated countOrdered By: Dax Vergararow on 01-23-2024 Lymphocytes/100 WBC (Bld) 28.2 % Normal . [facility] Comment on above: Performed By: #### C K, T4F, CRP, CMP, CBC, ESR, TSH3 ####[address]#### ALDOLASE, MANUEL ####[facility] , MCH [Entitic mass] by Automa luis alfredo countOrdered By: Dax Vergararow on 01-23-2024 MCH (RBC) [Entitic mass] 28.4 pg Normal 24.7-34.3 [facility] Comment on above: Performed By: #### C K, T4F, CRP, CMP, CBC, ESR, TSH3 ####[address]#### ALDOLASE, MANUEL ####[facility] , MCHC Auto (RBC) [Mass/Vol]Or dered By: Dax Coello on 01-23-2024 MCHC (RBC) [Mass/Vol] 33.2 g/dL 32.0-35.0 [facility] MCV [Entitic volume] by Auto mated countOrdered By: Dax Vergararow on 01-23-2024 MCV (RBC) [Entitic vol] 85.5 fL Normal 80-100 [facility] Comment on above: Performed By: #### C K, T4F, CRP, CMP, CBC, ESR, TSH3 ####[address]#### ALDOLASE, MANUEL ####[facility] , Neutrophils [#/volume] in Bl ood by Automated countOrdered By: Dax Coello on 01-23-2024 Neutrophils (Bld) [#/Vol] 4.4 10*3/uL Normal 1.8-7.7 [facility] Comment on above: Performed By: #### C K, T4F, CRP, CMP, CBC, ESR, TSH3 ####[address] [place] [address] [place]#### ALDOLASE, MANUEL ####[facility] , No Panel InformationOrdered By: Dax Coello on 01-23-2024 Estimated GFR (CKD-EPI) 47.618 mL/Min [facility] Creatinine Clearance (Chem N/A [facility] Nucleated erythrocytes [Pres ence] in Blood by Automated countOrdered By: Dax Coello on 01-23-2024 Nucleated RBC Auto Ql (Bld) 0.2 /100{WBC} 0-0.5 [facility] Platelet mean volume [Entiti c volume] in Blood by Automated countOrdered By: Dax Coello on 01-23-2024 Platelet mean volume (Bld) [Entitic vol] 8.6 fL Normal 6.3-10.7 [facility] Comment on above: Performed By: #### C K, T4F, CRP, CMP, CBC, ESR, TSH3 ####[address]#### ALDOLASE, MANUEL ####[facility] , Platelets [#/volume] in Bloo d by Automated countOrdered By: Dax Coello on 01-23-2024 Platelets (Bld) [#/Vol] 380 10*3/uL Normal 150-450 [facility] Comment on above: Performed By: #### C K, T4F, CRP, CMP, CBC, ESR, TSH3 ####[place] [address] [place]#### ALDOLASE, MANUEL ####[facility] , Potassium [Moles/volume] in Serum or PlasmaOrdered By: Dax Coello on 01-23-2024 Potassium [Moles/Vol] 4.5 mmol/L Normal 3.5-5.1 [facility] Comment on above: Performed By: #### C K, T4F, CRP, CMP, CBC, ESR, TSH3 #### [facility] [address] [place] [address] [place] #### ALDOLASE, MANUEL #### [facility] , Protein [Mass/volume] in Ser um or PlasmaOrdered By: Dax Coello on 01-23-2024 Protein [Mass/Vol] 7.5 g/dL Normal 6.4-8.9 [facility] Comment on above: Performed By: #### C K, T4F, CRP, CMP, CBC, ESR, TSH3 #### [facility] [address] [place] [address] #### ALDOLASE, MANUEL #### [facility] , Serum globulin measurement b y calculation (mass/volume)Ordered By: Dax Vergararow on 01-23-2024 Globulin (S) [Mass/Vol] 3.2 g/dL Normal [facility] Comment on above: Performed By: #### C K, T4F, CRP, CMP, CBC, ESR, TSH3 #### [address] #### ALDOLASE, MANUEL #### [facility] , Serum or plasma albumin/glob ulin mass ratioOrdered By: Dax Vergararow on 01-23-2024 Albumin/Globulin [Mass ratio] 1.3 {ratio} Normal [facility] Comment on above: Performed By: #### C K, T4F, CRP, CMP, CBC, ESR, TSH3 #### [place] [address] [place] #### ALDOLASE, MANUEL #### [facility] , Serum or plasma anion gap de terminationOrdered By: Dax Vergararow on 01-23-2024 Anion gap [Moles/Vol] 12.0 mmol/L Normal 6.0-15.0 [facility] Comment on above: Performed By: #### C K, T4F, CRP, CMP, CBC, ESR, TSH3 #### [place] [address] [place] #### ALDOLASE, MANUEL #### [facility] , Sodium [Moles/volume] in Ser um or PlasmaOrdered By: Dax Coello on 01-23-2024 Sodium [Moles/Vol] 140 mmol/L Normal 136-145 [facility] Comment on above: Performed By: #### C K, T4F, CRP, CMP, CBC, ESR, TSH3 #### [address] #### ALDOLASE, MANUEL #### [facility] , Thyrotropin [Units/volume] i n Serum or PlasmaOrdered By: Dax Coello on 01-23-2024 TSH Qn 1.66 m[IU]/L Normal 0.45-5.33 [facility] Comment on above: Result Comment: PERF ORMED BY: [place] [address] PATHOLOGIST RAIL BENDER AYO CRUZ M.D. Performed By: #### C K, T4F, CRP, CMP, CBC, ESR, TSH3 ####[address]#### ALDOLASE, MANUEL ####[facility] , Thyroxine (T4) free [Mass/vo lume] in Serum or PlasmaOrdered By: Dax Coello on 01-23-2024 Free T4 [Mass/Vol] 0.93 ng/dL Normal 0.61-1.12 [facility] Comment on above: Performed By: #### C K, T4F, CRP, CMP, CBC, ESR, TSH3 ####[address]#### ALDOLASE, MANUEL ####[facility] , Urea nitrogen [Mass/volume] in Serum or PlasmaOrdered By: Dax Coello on 01-23-2024 Urea nitrogen [Mass/Vol] 14 mg/dL Normal 7-25 [facility] Comment on above: Performed By: #### C K, T4F, CRP, CMP, CBC, ESR, TSH3 #### [place] [address] [place] #### ALDOLASE, MANUEL #### [facility] , CBC AND AUTO DIFFon 11-28-19 ABSOLUTE BASOPHIL 0.1 X10E9/L Normal 0.0-0.2 [facility] Comment on above: Performed By: #### C BCA, CMP, 04586-3, 3083-, THYR, 22122-0 #### [facility] ([id number]) [address], [address] [place] [address] ABSOLUTE NEUTROPHIL 4.6 X10E9/L Normal 1.5-6.6 [facility] Comment on above: Performed By: #### C BCA, CMP, 47581-5, 3083-09, THYR, 23317-7 #### [facility] ([id number]) [address], [address] [place] [address] Basophils/100 WBC (Bld) 0.9 % Normal [facility] Comment on above: Performed By: #### C BCA, CMP, , 3083-, THYR, 11120-5 #### [facility] ([id number]) [address], [address] [place] [address] Eosinophils (Bld) [#/Vol] 0.3 10*3/uL Normal 0.0-0.4 [facility] Comment on above: Performed By: #### C BCA, CMP, 61260-1, 3083-, THYR, 86659-2 #### [facility] ([id number]) [address] [address] [place] [address] Eosinophils/100 WBC (Bld) 4.6 % Normal [facility] Comment on above: Performed By: #### C BCA, CMP, 74516-0, 3083-, THYR, 03854-1 #### [facility] ([id number]) [address], [address] [place] [address] Erythrocyte distribution width (RBC) [Ratio] 14.1 % Normal 11.5-15.0 [facility] Comment on above: Performed By: #### C BCA, CMP, , 3083-09, THYR, 99662-6 #### [facility] ([id number]) [address], [address] [place] [address] Hematocrit (Bld) [Volume fraction] 39.1 % Normal 35-47 [facility] Comment on above: Performed By: #### C BCA, CMP, , 3083-09, THYR, 22086-8 #### [facility] ([id number]) [address], [address] [place] [address] Hemoglobin (Bld) [Mass/Vol] 13.2 g/dL Normal 11.7-15.5 [facility] Comment on above: Performed By: #### C BCA, CMP, , 3083-09, THYR, 92713-9 #### [facility] ([id number]) [address], [address] [place] [address] Lymphocytes (Bld) [#/Vol] 1.7 10*3/uL Normal 1.0-3.5 [facility] Comment on above: Performed By: #### C BCA, CMP, , 3083-09, THYR, 46509-2 #### [facility] ([id number]) [address], [address] [place] [address] Lymphocytes/100 WBC (Bld) 23.3 % Normal [facility] Comment on above: Performed By: #### C BCA, CMP, , 3083-09, THYR, 08834-2 #### [facility] ([id number]) [address], [address] [place] [address] MCH (RBC) [Entitic mass] 28.6 pg Normal 27-34 [facility] Comment on above: Performed By: #### C BCA, CMP, 00458-1, 3083-, THYR, 86576-1 #### [facility] ([id number]) [address], [address] [place] [address] MCHC (RBC) [Mass/Vol] 33.8 g/dL Normal 32-36 [facility] Comment on above: Performed By: #### C BCA, CMP, 30503-4, 3083-, THYR, 00140-1 #### [facility] ([id number]) [address], [address] [place] [address] MCV (RBC) [Entitic vol] 85 fL Normal 80-100 [facility] Comment on above: Performed By: #### C BCA, CMP, 30501-3, 3083-, THYR, 79038-7 #### [facility] ([id number]) [address], [address] [place] [address] Monocytes (Bld) [#/Vol] 0.6 10*3/uL Normal 0-0.9 [facility] Comment on above: Performed By: #### C BCA, CMP, 98337-0, 3083-, THYR, 65765-5 #### [facility] ([id number]) [address], [address] [place] [address] Monocytes/100 WBC (Bld) 7.7 % Normal [facility] Comment on above: Performed By: #### C BCA, CMP, 83296-6, 3083-, THYR, 94965-6 #### [facility] ([id number]) [address], [address] [place] [address] Neutrophils/100 WBC (Bld) 63.5 % Normal [facility] Comment on above: Performed By: #### C BCA, CMP, 91365-2, 3083-, THYR, 02846-7 #### [facility] ([id number]) [address], [address] [place] [address] Platelet mean volume (Bld) [Entitic vol] 8.7 fL Normal 7-12 [facility] Comment on above: Performed By: #### C BCA, CMP, 08302-4, 3084-1, THYR, 03470-1 #### [facility] ([id number]) [address], [address] [address] Platelets (Bld) [#/Vol] 366 10*3/uL Normal 150-450 [facility] Comment on above: Performed By: #### C BCA, CMP, 63368-8, 4-1, THYR, 86303-1 #### [facility] ([id number]) [address] [address] RBC COUNT 4.63 X10E12/L Normal 3.80-5.20 [facility] Comment on above: Performed By: #### C BCA, CMP, 59488-9, 3084-1, THYR, 30232-9 #### [facility] ([id number]) [address] [address] WBC (Bld) [#/Vol] 7.2 10*3/uL Normal 4.0-11.0 [facility] Comment on above: Performed By: #### Pete BCA, CMP, 43613-4, 3084-1, THYR, 17788-1 #### [facility] ([id number]) [address], [facility] [address] [place] [address] CBC auto differentialon 11-03 Basophils (Bld) [#/Vol] 0.1 10*3/[facility] Basophils/100 WBC (Bld) 0.9 % [facility] Eosinophils (Bld) [#/Vol] 0.3 10*3/uL [facility] Eosinophils/100 WBC (Bld) 4.6 % [facility] Erythrocyte distribution width (RBC) [Ratio] 14.1 % 11.5 - 15.0 % [facility] Hematocrit (Bld) [Volume fraction] 39.1 % 35 - 47 % [facility] Hemoglobin (Bld) [Mass/Vol] 13.2 g/dL 11.7 - 15.5 g/dL [facility] Lymphocytes (Bld) [#/Vol] 1.7 10*3/uL [facility] Lymphocytes/100 WBC (Bld) 23.3 % [facility] MCH (RBC) [Entitic mass] 28.6 pg 27 - 34 pg [facility] MCHC (RBC) [Mass/Vol] 33.8 g/dL 32 - 36 g/dL P [facility] MCV (RBC) [Entitic vol] 85 fL 80 - 100 fL [facility] Monocytes (Bld) [#/Vol] 0.6 10*3/uL [facility] Monocytes/100 WBC (Bld) 7.7 % P [facility] Neutrophils (Bld) [#/Vol] 4.6 10*3/uL [facility] Neutrophils/100 WBC (Bld) 63.5 % [facility] Platelet mean volume (Bld) [Entitic vol] 8.7 fL 7 - 12 fL [facility] Platelets (Bld) [#/Vol] 366 10*3/uL [facility] RBC (Bld) [#/Vol] 4.63 10*6/uL [facility] WBC corrected for nucl RBC Auto (Bld) [#/Vol] 7.2 [facility] COMPREHENSIVE METABOLIC PANE Bijan 11-28-2023 Albumin [Mass/Vol] 3.9 g/dL Normal 3.2-5.3 [facility] Comment on above: Performed By: #### C BCA, CMP, 15431-7, 3084-1, THYR, 44113-2 #### [facility] ([id number]) [address], [address] [place] [address] ALP [Catalytic activity/Vol] 101 U/L Normal 39-130 [facility] Comment on above: Performed By: #### C BCA, CMP, 55791-8, 4-1, THYR, 34780-7 #### [facility] ([id number]) [address], [address] [place] [address] ALT [Catalytic activity/Vol] 15 U/L Normal 0-31 [facility] Comment on above: Performed By: #### C BCA, CMP, 43983-6, 3083-1, THYR, 60861-5 #### [facility] ([id number]) [address], [address] [place] [address] Anion gap [Moles/Vol] 10 mmol/L Normal 5-15 [facility] Comment on above: Performed By: #### C BCA, CMP, 36646-1, 4-1, THYR, 39334-8 #### [facility] ([id number]) [address], [address] [place] [address] AST [Catalytic activity/Vol] 20 U/L Normal 0-41 [facility] Comment on above: Performed By: #### C BCA, CMP, 30995-4, 3083-1, THYR, 87339-0 #### [facility] ([id number]) [address], [address] [place] [address] Bilirubin [Mass/Vol] 0.3 mg/dL Normal 0.3-1.2 [facility] Comment on above: Performed By: #### C BCA, CMP, 05142-8, 4-1, THYR, 44689-3 #### [facility] ([id number]) [address], [address] [place] [address] Calcium [Mass/Vol] 9.1 mg/dL Normal 8.5-10.5 [facility] Comment on above: Performed By: #### C BCA, CMP, 46985-7, 4-1, THYR, 71108-6 #### [facility] ([id number]) [address], [address] [place] [address] Chloride [Moles/Vol] 105 mmol/L Normal 98-109 [facility] Comment on above: Performed By: #### C BCA, CMP, 27756-9, 3083-1, THYR, 14922-7 #### [facility] ([id number]) [address], [address] [place] [address] CO2 [Moles/Vol] 25 mmol/L Normal 22-32 [facility] Comment on above: Performed By: #### C BCA, CMP, 67641-3, 3083-, THYR, 58917-6 #### [facility] ([id number]) [address], [address] [place] [address] Creatinine [Mass/Vol] 1.06 mg/dL High 0.40-1.00 [facility] Comment on above: Result Comment: METH OD TRACEABLE TO IDMS STANDARD Performed By: #### C BCA, CMP, , 3083-, THYR, 77964-2 #### [facility] ([id number]) [address], [address] [place] [address] GFR/1.73 sq M.predicted among non-blacks MDRD (S/P/Bld) [Vol rate/Area] 56 mL/min/{1.73_m2} Low >59 [facility] Comment on above: Result Comment: Reported eGFR is based on the CKD-EPI 1 equation that does not use a race coefficient. Performed By: #### C BCA, CMP, 57300-2, 3083-, THYR, 50665-0 #### [facility] ([id number]) [address], [address] [place] [address] Glucose [Mass/Vol] 111 mg/dL High 65-99 [facility] Comment on above: Performed By: #### C BCA, CMP, 43191-0, 3084-1, THYR, 87541-0 #### [facility] ([id number]) [address], [address] [place] [address] Potassium [Moles/Vol] 3.7 mmol/L Normal 3.5-5.0 [facility] Comment on above: Performed By: #### C BCA, CMP, 12566-3, 4-1, THYR, 87459-4 #### [facility] ([id number]) [address], [address] [place] [address] Protein [Mass/Vol] 7.2 g/dL Normal 6.0-8.0 [facility] Comment on above: Performed By: #### C BCA, CMP, 95771-7, 3083-, THYR, 61301-5 #### [facility] ([id number]) [address], [address] [place] [address] Sodium [Moles/Vol] 140 mmol/L Normal 134-146 [facility] Comment on above: Performed By: #### C BCA, CMP, 65027-7, 3083-, THYR, 18329-8 #### [facility] ([id number]) [address], [address] [place] [address] Urea nitrogen [Mass/Vol] 18 mg/dL Normal 5-27 [facility] Comment on above: Performed By: #### C BCA, CMP, 45245-6, 3083-, THYR, 48486-9 #### [facility] ([id number]) [address], [address] [place] [address] Comprehensive metabolic pane bijan 11-28-2023 Albumin [Mass/Vol] 3.9 g/dL 3.2 - 5.3 g/dL [facility] ALP [Catalytic activity/Vol] 101 U/L 39 - 130 U/L [facility] ALT No additional P-5'-P [Catalytic activity/Vol] 15 U/L 0 - 31 U/L [facility] Anion gap [Moles/Vol] 10 mmol/L 5 - 15 mmol/L [facility] AST [Catalytic activity/Vol] 20 U/L 0 - 41 U/L [facility] Bilirubin [Mass/Vol] 0.3 mg/dL 0.3 - 1 .2 mg/dL [facility] Calcium [Mass/Vol] 9.1 mg/dL 8.5 - 10. 5 mg/dL [facility] Chloride [Moles/Vol] 105 mmol/L 98 - 10 9 mmol/L [facility] CO2 [Moles/Vol] 25 mmol/L 22 - 32 mmol/L [facility] Creatinine [Mass/Vol] 1.06 mg/dL High 0.40 - 1.00 mg/dL [facility] Comment on above: METHOD TRACEABLE TO [facility] STANDARD eGFR (CKD-EPI)non-race dependent 56 Low - PINF [facility] Comment on above: Reported eGFR is based on the CKD-EPI 2020 equation that does not use a race coefficient. Glucose [Mass/Vol] 111 mg/dL High 65 - 99 mg/dL [facility] Interpretation and review of laboratory results Abnormal [facility] Potassium [Moles/Vol] 3.7 mmol/L 3.5 - 5.0 mmol/L [facility] Protein [Mass/Vol] 7.2 g/dL 6.0 - 8.0 g/dL [facility] Sodium [Moles/Vol] 140 mmol/L 134 - 146 mmol/L [facility] Urea nitrogen [Mass/Vol] 18 mg/dL 5 - 27 mg/dL [facility] ESR Photometric method (Bld) [Velocity]on 11-28-2023 Interpretation and review of laboratory results Abnormal [facility] ESR, ERYTHROCYTE SEDIMENTATION RATE 78 mm/h High 0-30 [facility] Comment on above: Performed By: #### C BCA, CMP, 44959-2, 3084-1, THYR, 92561-0 #### [facility] ([id number]) [address], [address] [place] [address] Erythrocyte Sedimentation Ra te (ESR)on 11-28-2023 ESR Photometric method (Bld) [Velocity] 78 mm/h High 0 - 30 mm/h [facility] MAGNESIUMon 11-28-2023 Magnesium [Mass/Vol] 2.0 mg/dL Normal 1.8-2.6 [facility] Comment on above: Performed By: #### C SHANNAN, CMP, , 3083-09, THYR, 32719-2 #### [facility] ([id number]) [address], [address] [place] [address] Magnesiumon 11-28-2023 Magnesium [Mass/Vol] 2.0 mg/dL 1.8 - 2 .6 mg/dL [facility] No Panel Informationon 11-27 [facility] THYROID PROFILEon 11-28-2023 Free T4 [Mass/Vol] 0.90 ng/dL Normal 0.61-1.60 [facility] Comment on above: Performed By: #### C SHANNAN, CMP, , 3083-09, THYR, 34670-0 #### [facility] ([id number]) [address], [address] [place] [address] TSH 2.38 uIU/mL Normal 0.49-4.67 [facility] Comment on above: Performed By: #### C SHANNAN CMP, , 3083-09, THYR, 03169-9 #### [facility] ([id number]) [address], [address] [place] [address] Thyroid profile includes TSH FT4on 11-28-2023 Free T4 [Mass/Vol] 0.90 ng/dL 0.61 - 1. 60 ng/dL [facility] TSH Qn 2.38 m[IU]/L [facility] URIC ACIDon 11-28-2023 Urate [Mass/Vol] 5.2 mg/dL Normal 2.6-7.2 [facility] Comment on above: Performed By: #### C BCA, CMP, 50762-9, 3084-1, THYR, 18632-4 #### [facility] ([id number]) [address] [place] [address], [address] [place] [address] Uric acidon 11-28-2023 Urate [Mass/Vol] 5.2 mg/dL 2.6 - 7.2 mg/dL [facility] MR knee RT wo conon 10-24-19 MR knee RT wo con [facility] [place] [address] [place] [id number] MRI Report Signed Patient: Lisa Cochran MR#: [id number] 5 : 1950 Acct:[id number] Age/Sex: 73 / F ADM Date: 10/24/23 Loc: Room: Type: [facility] Attending Dr: Aldo Wynn MD Copies to: [...] Eduardo Oates M.D.10/24/2023 1:18 PM Dictation Location: [place] [address] Transcribed By: LEONARDA 10/24/23 1318 Dictated By: Luis Eduardo Oates DO 10/24/23 1308 Signed By: 10/24/23 1318 Normal [facility] XR knee RT 2Von 10-03-2023 XR knee RT 2V [facility] [place] [address] XRay Report Signed Patient: Lisa Cochran MR#: [id number] 5 : 1950 Acct:[id number] Age/Sex: 73 / F ADM Date: 10/03/23 Loc: [facility] Room: Type: [facility] Attending Dr: Aldo Wynn MD Copies to: [...] Eduardo Oates M.D.10/03/2023 1:36 PM Dictation Location: [facility] Transcribed By: PWS 10/03/23 1336 Dictated By: Luis Eduardo Oates DO 10/03/23 1335 Signed By: 10/03/23 1336 Normal [facility] COVID/FLU/RSV RT-PCRon 09-01 SARS-CoV-2 (COVID-19) RNA ANGEL+probe Ql (Unsp spec) Negative [facility] Other COVID/FLU/RSV RT-PCR Negative [facility] Other COMPREHENSIVE METABOLIC PANE Bijan 12-14-2021 Albumin [Mass/Vol] 4.3 g/dL Normal 3.6-5.1 [facility] Comment on above: Performed By: #### 1 0231, 7600 #### [facility] [place] [address] [employer]: Napoleon Anne MD Albumin/Globulin [Mass ratio] 1.6 {ratio} Normal 1.0-2.5 [facility] Comment on above: Performed By: #### 1 0231, 7600 #### [facility] [place] [address] [employer]: Napoleon Anne MD ALP [Catalytic activity/Vol] 108 U/L Normal 37-153 [facility] Comment on above: Performed By: #### 1 0231, 7600 #### [facility] [place] [address] [employer]: Napoleon Anne MD ALT [Catalytic activity/Vol] 10 U/L Normal 6-29 [facility] Comment on above: Performed By: #### 1 0231, 7600 #### [facility] [place] [address] [employer]: Napoleon Anne MD AST [Catalytic activity/Vol] 14 U/L Normal 10-35 [facility] Comment on above: Performed By: #### 1 0231, 7600 #### [facility] [place] [address] [employer]: Napoleon Anne MD Bilirubin [Mass/Vol] 0.5 mg/dL Normal 0.2-1.2 [facility] Comment on above: Performed By: #### 1 230, 7600 #### [facility] [place] [address] [employer]: Napoleon Anne MD BUN/CREATININE RATIO NOT APPLICABLE Normal 6-22 [facility] Comment on above: Performed By: #### 1 023, 7600 #### [facility] [place] [address] [employer]: Napoleon Anne MD Calcium [Mass/Vol] 9.5 mg/dL Normal 8.6-10.4 [facility] Comment on above: Performed By: #### 1 023, 7600 #### [facility] [place] [address] [employer]: Napoleon Anne MD Chloride [Moles/Vol] 106 mmol/L Normal 98-110 [facility] Comment on above: Performed By: #### 1 230, 7600 #### [facility] [place] [address] [employer]: Napoleon Anne MD CO2 [Moles/Vol] 29 mmol/L Normal 20-32 [facility] Comment on above: Performed By: #### 1 023, 7600 #### [facility] [place] [address] [employer]: Napoleon Anne MD Creatinine [Mass/Vol] 0.86 mg/dL Normal 0.60-0.93 [facility] Comment on above: Result Comment: For patients >49 years of age, the reference limit for Creatinine is approximately 13% higher for people identified as -Libyan. Performed By: #### 1 023, 7600 #### [facility] [place] [address] [employer]: Napoleon Anne MD eGFR NON-AFR. SWISS 68 mL/min/1.73m2 Normal > OR = 60 [facility] Comment on above: Performed By: #### 1 023, 7600 #### [facility] [address], [address] [place] [address] [employer]: Napoleon Anne MD GFR/1.73 sq M.predicted among blacks MDRD (S/P/Bld) [Vol rate/Area] 79 mL/min/{1.73_m2} Normal > OR = 60 [facility] Comment on above: Performed By: #### 1 023, 7600 #### [facility] [address], [address] [place] [address] [employer]: Napoleon Anne MD Globulin (S) [Mass/Vol] 2.7 g/dL Normal 1.9-3.7 [facility] Comment on above: Performed By: #### 1 023, 7600 #### [facility] [address], [address] [place] [address] [employer]: Napoleon Anne MD Glucose [Mass/Vol] 100 mg/dL High 65-99 [facility] Comment on above: Result Comment: Fasting reference interval For someone without known diabetes, a glucose value between 100 and 125 mg/dL is consistent with prediabetes and should be confirmed with a follow-up test. Performed By: #### 1 023, 7600 #### [facility] [address], [address] [place] [address] [employer]: Napoleon Anne MD Potassium [Moles/Vol] 4.1 mmol/L Normal 3.5-5.[address] [facility] Comment on above: Performed By: #### 1 023, 7600 #### [facility] [address], [address] [place] [address] [employer]: Napoleon Anne MD Protein [Mass/Vol] 7.0 g/dL Normal 6.1-8.1 [facility] Comment on above: Performed By: #### 1 023, 7600 #### [facility] [address], [address] [place] [address] [employer]: Napoleon Anne MD Sodium [Moles/Vol] 141 mmol/L Normal 135-146 [facility] Comment on above: Performed By: #### 1 0231, 7600 #### [facility] [place] [address] [employer]: Napoleon Anne MD Urea nitrogen [Mass/Vol] 14 mg/dL Normal 7-25 [facility] Comment on above: Performed By: #### 1 0231, 7600 #### [facility] [place] [address] [employer]: Napoleon Anne MD LIPID PANEL, [facility] 12-03 Cholesterol [Mass/Vol] 191 mg/dL Normal <200 [facility] Comment on above: Order Comment: FASTI NG:YES FASTING: YES Performed By: #### 1 0231, 7600 #### [facility] [place] [address] [employer]: Napoleon Anne MD Cholesterol in HDL [Mass/Vol] 63 mg/dL Normal > OR = 50 [facility] Comment on above: Order Comment: FASTI NG:YES FASTING: YES Performed By: #### 1 0231, 7600 #### [facility] [place] [address] [employer]: Napoleon Anne MD Cholesterol in LDL [Mass/Vol] [...] LDL-C. Obinna DELCID et al. ALIREZA. 2013;310(19): 0733-2806 (http://[email or web address] [email or web address]/faq/[email or web address]) Performed By: #### 1 0231, 7600 #### [facility] [address] [place] [address] [employer]: Napoleon Anne MD Cholesterol.total/Minoo sterol in HDL [Mass ratio] 3.0 {ratio} Normal <5.0 [facility] Comment on above: Order Comment: FASTI NG:YES FASTING: YES Performed By: #### 1 0231, 7600 #### [facility] [address], [address] [place] [address] [employer]: Napoleon Anne MD NON HDL CHOLESTEROL 128 mg/dL (calc) Normal <130 [facility] Comment on above: Order Comment: FASTI NG:YES FASTING: YES Result Comment: For patients with diabetes plus 1 major ASCVD risk factor, treating to a non-HDL-C goal of <100 mg/dL (LDL-C of <70 mg/dL) is considered a therapeutic option. Performed By: #### 1 0231, 7600 #### [facility] [place] [address] [employer]: Napoleon Anne MD Triglyceride [Mass/Vol] 146 mg/dL Normal <150 [facility] Comment on above: Order Comment: FASTI NG:YES FASTING: YES Performed By: #### 1 0231, 7600 #### [facility] [place] [address] [employer]: Napoleon Anne MD BASIC METABOLIC PANELon 10-2 0-2020 BUN/CREATININE RATIO NOT APPLICABLE Normal 6-22 [facility] Comment on above: Performed By: #### 7 18, 04706, 59613, 905, 6399, 622 #### [facility] [address], [address] [place] [address] [employer]: Napoleon Anne MD Calcium [Mass/Vol] 9.1 mg/dL Normal 8.6-10.4 [facility] Comment on above: Performed By: #### 7 18, 42043, 18603, 905, 6399, 622 #### [facility] [place] [address] [employer]: Napoleon Anne MD Chloride [Moles/Vol] 103 mmol/L Normal 98-110 [facility] Comment on above: Performed By: #### 7 18, 74654, 64300, 905, 6399, 622 #### [facility] [place] [address] [employer]: Napoleon Anne MD CO2 [Moles/Vol] 22 mmol/L Normal 20-32 [facility] Comment on above: Performed By: #### 7 18, 52405, 77398, 905, 6399, 622 #### [facility] [place] [address] [employer]: Napoleon Anne MD Creatinine [Mass/Vol] 0.93 mg/dL Normal 0.60-0.93 [facility] Comment on above: Result Comment: For patients >49 years of age, the reference limit for Creatinine is approximately 13% higher for people identified as -Libyan. Performed By: #### 7 18, 49092, 00131, 905, 6399, 622 #### [facility] [place] [address] [employer]: Napoleon Anne MD eGFR NON-AFR. SWISS 62 mL/min/1.73m2 Normal > OR = 60 [facility] Comment on above: Performed By: #### 7 18, 05041, 12725, 905, 6399, 622 #### [facility] [place] [address] [employer]: Napoleon Anne MD GFR/1.73 sq M.predicted among blacks MDRD (S/P/Bld) [Vol rate/Area] 72 mL/min/{1.73_m2} Normal > OR = 60 [facility] Comment on above: Performed By: #### 7 18, 91589, 57375, 905, 6399, 622 #### [facility] [place] [address] [employer]: Napoleon Anne MD Glucose [Mass/Vol] 100 mg/dL High 65-99 [facility] Comment on above: Result Comment: Fasting reference interval For someone without known diabetes, a glucose value between 100 and 125 mg/dL is consistent with prediabetes and should be confirmed with a follow-up test. Performed By: #### 7 18, 60473, 46969, 905, 6399, 622 #### [facility] [place] [address] [employer]: Napoleon Anne MD Potassium [Moles/Vol] 4.0 mmol/L Normal 3.5-5.3 [facility] Comment on above: Performed By: #### 7 18, 11395, 35380, 905, 6399, 622 #### [facility] [place] [address] [employer]: Napoleon Anne MD Sodium [Moles/Vol] 139 mmol/L Normal 135-146 [facility] Comment on above: Performed By: #### 7 18, 30695, 53268, 905, 6399, 622 #### [facility] [place] [address] [employer]: Napoleon Anne MD Urea nitrogen [Mass/Vol] 15 mg/dL Normal 7-25 [facility] Comment on above: Performed By: #### 7 18, 08319, 08081, 905, 6399, 622 #### [facility] [place] [address] [employer]: Napoleon Anne MD CBC (INCLUDES DIFF/PLT)on Basophils (Bld) [#/Vol] 0.043 10*3/uL Normal 0-200 [facility] Comment on above: Performed By: #### 7 18, 57932, 53114, 905, 6399, 622 #### [facility] [place] [address] [employer]: Napoleon Anne MD Basophils/100 WBC (Bld) 0.7 % Normal [facility] Comment on above: Performed By: #### 7 18, 44241, 31679, 905, 6399, 622 #### [facility] [place] [address] [employer]: Napoleon Anne MD Eosinophils (Bld) [#/Vol] 0.061 10*3/uL Normal 15-500 [facility] Comment on above: Performed By: #### 7 18, 89769, 70013, 905, 6399, 622 #### [facility] [place] [address] [employer]: Napoleon Anne MD Eosinophils/100 WBC (Bld) 1.0 % Normal [facility] Comment on above: Performed By: #### 7 18, 12529, 63212, 905, 6399, 622 #### [facility] [place] [address] [employer]: Napoleon Anne MD Erythrocyte distribution width (RBC) [Ratio] 14.7 % Normal 11.0-15.0 [facility] Comment on above: Performed By: #### 7 18, 24089, 39748, 905, 6399, 622 #### [facility] [place] [address] [employer]: Napoleon Anne MD Hematocrit (Bld) [Volume fraction] 41.5 % Normal 35.0-45.0 [facility] Comment on above: Performed By: #### 7 18, 77925, 63424, 905, 6399, 622 #### [facility] [place] [address] [employer]: Napoleon Anne MD Hemoglobin (Bld) [Mass/Vol] 13.5 g/dL Normal 11.7-15.5 [facility] Comment on above: Performed By: #### 7 18, 21112, 89706, 905, 6399, 622 #### [facility] [place] [address] [employer]: Napoleon Anne MD Lymphocytes (Bld) [#/Vol] 1.928 10*3/uL Normal 850-3900 [facility] Comment on above: Performed By: #### 7 18, 46259, 65511, 905, 6399, 622 #### [facility] [place] [address] [employer]: Napoleon Anne MD Lymphocytes/100 WBC (Bld) 31.6 % Normal [facility] Comment on above: Performed By: #### 7 18, 59938, 39639, 905, 6399, 622 #### [facility] [place] [address] [employer]: Napoleon Anne MD MCH (RBC) [Entitic mass] 28.3 pg Normal 27.0-33.0 [facility] Comment on above: Performed By: #### 7 18, 54867, 66966, 905, 6399, 622 #### [facility] [place] [address] [employer]: Napoleon Anne MD MCHC (RBC) [Mass/Vol] 32.5 g/dL Normal 32.0-36.[address] [facility] Comment on above: Performed By: #### 7 18, 61047, 27492, 905, 6399, 622 #### [facility] [place] [address] [employer]: Napoleon Anne MD MCV (RBC) [Entitic vol] 87.0 fL Normal 80.0-100.0 [facility] Comment on above: Performed By: #### 7 18, 12655, 99751, 905, 6399, 622 #### [facility] [place] [address] [employer]: Napoleon Anne MD Monocytes (Bld) [#/Vol] 0.409 10*3/uL Normal 200-950 [facility] Comment on above: Performed By: #### 7 18, 02585, 03069, 905, 6399, 622 #### [facility] [place] [address] [employer]: Napoleon Anne MD Monocytes/100 WBC (Bld) 6.7 % Normal [facility] Comment on above: Performed By: #### 7 18, 16915, 21671, 905, 6399, 622 #### [facility] [place] [address] [employer]: Napoleon Anne MD Neutrophils (Bld) [#/Vol] 3.66 10*3/uL Normal 1252-0915 [facility] Comment on above: Performed By: #### 7 18, 84799, 07790, 905, 6399, 622 #### [facility] [place] [address] [employer]: Napoleon Anne MD Neutrophils/100 WBC (Bld) 60 % Normal [facility] Comment on above: Performed By: #### 7 18, 47608, 46462, 905, 6399, 622 #### [facility] [place] [address] [employer]: Napoleon Anne MD Platelet mean volume (Bld) [Entitic vol] 10.5 fL Normal 7.5-12.5 [facility] Comment on above: Performed By: #### 7 18, 54290, 03350, 905, 6399, 622 #### [facility] [place] [address] [employer]: Napoleon Anne MD Platelets (Bld) [#/Vol] 307 10*3/uL Normal 140-400 [facility] Comment on above: Performed By: #### 7 18, 36070, 32626, 905, 6399, 622 #### [facility] [place] [address] [employer]: Napoleon Anne MD RBC (Bld) [#/Vol] 4.77 10*6/uL Normal 3.80-5.10 [facility] Comment on above: Performed By: #### 7 18, 30320, 54377, 905, 6399, 622 #### [facility] [place] [address] [employer] Coach: Napoleon Anne MD WBC (Bld) [#/Vol] 6.1 10*3/uL Normal 3.8-10.8 [facility] Comment on above: Performed By: #### 7 18, [id number], 61027, 905, 6399, 622 #### [facility] [place] [address] [employer] Coach: Napoleon Anne MD MAGNESIUMon 06-23-2021 Magnesium [Mass/Vol] 2.0 mg/dL Normal 1.5-2.5 [facility] Comment on above: Order Comment: FASTI NG:UNKNOWN FASTING: UNKNOWN Performed By: #### 7 18, 13982, 07966, 905, 6399, 622 #### [facility] [place] [address] [employer] Coach: Napoleon Anne MD PHOSPHATE ( PHOSPHORUS)on 06-23-2021 Phosphate [Mass/Vol] 3.8 mg/dL Normal 2.1-4.3 [facility] Comment on above: Performed By: #### 7 18, 28197, 22711, 905, 6399, 622 #### [facility] [place] [address] [employer] Coach: Napoleon Anne MD PTH, INTACT WITHOUT CALCIUMo [...] Normal High Performed By: #### 7 18, 42203, 55382, 905, 6399, 622 #### [facility] [address] [place] [address], [address] [place] [address] [employer] Coach: Napoleon Anne MD URIC ACIDon 06-23-2021 Urate [Mass/Vol] 4.8 mg/dL Normal 2.5-7.0 [facility] Comment on above: Result Comment: Ther apeutic target for gout patients: <6.0 mg/dL Performed By: #### 7 18, 74081, 33074, 905, 6399, 622 #### [facility] [place] [address] [facility], [address] [place] [address] [employer] Coach: Napoleon Anne MD VITAMIN D,25-OH,TOTAL,IAon 1 VITAMIN [...] D, (D2,D3), LC/MS/MS is recommended: order code [id number] (patients >2yrs). See Note 1 Note 1 For additional information, please refer to [email or web address].[email or web address]/faq/[email or web address] (This link is being provided for informational/ educational purposes only.) Performed By: #### 7 18, 70192, 76323, 905, 9144, 622 #### [facility] [address], [address] [place] [address] [employer] Coach: Napoleon Anne MD Vital Signs Date Time Vital Sign Value Performing Clinician Facility 10-03-2024 12:57-0500 Body height 154.9 cm [email or web address] Phone: [facility] 10-03-2024 12:57-0500 Body mass index (BMI) [Ratio] 39.23 kg/m2 [employer] Work Phone: [facility] [employer] 10-03-2024 12:57-0500 Body temperature 98.6 [degF] Andres Furlong DO Work Phone: [facility] [employer] 10-03-2024 12:57-0500 Body weight 94.17 kg Andres Furlong DO Work Phone: [facility] [employer] 10-03-2024 12:57-0500 Diastolic blood pressure 70 mm[Hg] Andres Furlong DO Work Phone: [facility] [employer] [facility] 10-03-2024 12:57-0500 Heart rate 98 /min Andres Furlong DO Work Phone: [facility] [employer] 10-03-2024 12:57-0500 Respiratory rate 18 /min Andres Furlong DO Work Phone: [facility] [employer] 10-03-2024 12:57-0500 SaO2% (BldA) [Mass fraction] 94 % Andres Furlong DO Work Phone: [facility] [employer] 10-03-2024 12:57-0500 Systolic blood pressure 100 mm[Hg] Andres Furlong DO Work Phone: [facility] [employer] [facility] 09-17-2024 09:37-0500 Body height 154.9 cm Andres Furlong DO Work Phone: [facility] [employer] 09-17-2024 09:37-0500 Body mass index (BMI) [Ratio] 39.38 kg/m2 Andres Furlong DO Work Phone: [facility] [employer] [facility] 09-17-2024 09:37-0500 Body weight 94.53 kg Andres Furlong DO Work Phone: [facility] [employer] [facility] 09-17-2024 09:37-0500 Diastolic blood pressure 88 mm[Hg] Andres Furlong DO Work Phone: [facility] [employer] [facility] 09-17-2024 09:37-0500 Systolic blood pressure 138 mm[Hg] Andres Furlong DO Work Phone: [facility] 02-01-2024 09:56-0400 Diastolic blood pressure 84 mm[Hg] Kate Thornton APRN-ELEMENTARY SUPERVISOR Work Phone: [facility] 02-01-2024 09:56-0400 Systolic blood pressure 120 mm[Hg] Kate Thornton APRN-ELEMENTARY SUPERVISOR Work Phone: [facility] 02-01-2024 09:32-0400 Body height 157.5 cm Kate Thornton APRN-ELEMENTARY SUPERVISOR Work Phone: [facility] 02-01-2024 09:32-0400 Body mass index (BMI) [Ratio] 37.28 kg/m2 Kate Thornton APRN-ELEMENTARY SUPERVISOR Work Phone: [facility] 02-01-2024 09:32-0400 Body temperature 97.9 [degF] Kate Thornton APRN-ELEMENTARY SUPERVISOR Work Phone: [facility] 02-01-2024 09:32-0400 Body weight 92.44 kg Kate Thornton APRN-ELEMENTARY SUPERVISOR Work Phone: [facility] 02-01-2024 09:32-0400 Heart rate 78 /min Kate PETERSONELEMENTARY SUPERVISOR Work Phone: [facility] 02-01-2024 09:32-0400 Respiratory rate 18 /min Kate Thornton APRN-ELEMENTARY SUPERVISOR Work Phone: [facility] 02-01-2024 09:32-0400 SaO2% (BldA) [Mass fraction] 96 % Kate Thornton APRN-ELEMENTARY SUPERVISOR Work Phone: [facility] 11-28-2023 09:01-0400 Body height 157.5 cm Kate Thornton APRN-ELEMENTARY SUPERVISOR Work Phone: [facility] 11-28-2023 09:01-0400 Body mass index (BMI) [Ratio] 37.86 kg/m2 Kate Thornton APRN-ELEMENTARY SUPERVISOR Work Phone: [facility] 11-28-2023 09:01-0400 Body temperature 98.01 [degF] Kate Thornton APRN-ELEMENTARY SUPERVISOR Work Phone: [facility] 11-28-2023 09:01-0400 Body weight 93.89 kg Kate Thornton APRN-ELEMENTARY SUPERVISOR Work Phone: [facility] 11-28-2023 09:01-0400 Diastolic blood pressure 70 mm[Hg] Kate Thornton APRN-ELEMENTARY SUPERVISOR Work Phone: [facility] 11-28-2023 09:01-0400 Heart rate 119 /min Kate Thornton APRN-ELEMENTARY SUPERVISOR Work Phone: [facility] 11-28-2023 09:01-0400 Respiratory rate 18 /min Kate Thornton APRN-ELEMENTARY SUPERVISOR Work Phone: [facility] 11-28-2023 09:01-0400 SaO2% (BldA) [Mass fraction] 95 % Kate Thornton APRN-ELEMENTARY SUPERVISOR Work Phone: [facility] 11-28-2023 09:01-0400 Systolic blood pressure 90 mm[Hg] Kate Thornton APRN-ELEMENTARY SUPERVISOR Work Phone: [facility] 11-07-2023 09:42-0500 Body height 157.48 cm [facility] 11-07-2023 09:42-0500 Body mass index (BMI) [Ratio] 37.5 kg/m2 [facility] 11-07-2023 09:42-0500 Body weight 92.98 kg [facility] 10-24-2023 11:23-0500 Diastolic blood pressure 97 mm[Hg] [facility] 10-24-2023 11:23-0500 Heart rate 107 /min [facility] 10-24-2023 11:23-0500 Respiratory rate 18 /min [facility] 10-24-2023 11:23-0500 SaO2% (BldA) [Mass fraction] 94 % [facility] 10-24-2023 11:23-0500 Systolic blood pressure 144 mm[Hg] [facility] 10-24-2023 11:19-0500 Body height 154.94 cm [facility] 10-24-2023 11:19-0500 Body weight 94.34 kg [facility] 10-03-2023 09:45-0500 Body height 154.94 cm Aldo Olexa Other [facility] 10-03-2023 09:45-0500 Body mass index (BMI) [Ratio] 39.3 kg/m2 Aldo Olexa Other [employer] Other 10-03-2023 09:45-0500 Body weight 94.35 kg Aldo Olexa Other [employer] Other 10-03-2023 09:45-0500 Body weight 94.34 kg [facility] 09-01-2022 12:45-0500 Body height 154.94 cm Tanna Paige Other [employer] Other 09-01-2022 12:45-0500 Body mass index (BMI) [Ratio] 40.24 kg/m2 Tanna Paige Other [employer] Other 09-01-2022 12:45-0500 Body weight 96.62 kg Tanna Paige Other [employer] Other 09-01-2022 12:45-0500 Diastolic blood pressure 75 mm[Hg] Tanna Paige Other [employer] Other 09-01-2022 12:45-0500 Respiratory rate 18 /min Tanna Paige Other [employer] Other 09-01-2022 12:45-0500 SaO2% (BldA) [Mass fraction] 96 % Tanna Paige Other [employer] Other 09-01-2022 12:45-0500 Systolic blood pressure 114 mm[Hg] Tanna Paige Other [employer] Other 09-28-2021 11:15-0500 Body height 154.94 cm Aldo Olexa Other [employer] Other 09-28-2021 11:15-0500 Body mass index (BMI) [Ratio] 41.75 kg/m2 Aldo Olexa Other [employer] Other 09-28-2021 11:15-0500 Body weight 100.25 kg Aldo Olexa Other [employer] Other 08-19-2021 10:30-0500 Body height 154.94 cm Aldo Olexa Other [employer] Other 08-19-2021 10:30-0500 Body mass index (BMI) [Ratio] 41.56 kg/m2 Aldo Olexa Other [employer] Other 08-19-2021 10:30-0500 Body weight 99.79 kg Aldo Olexa Other [employer] Other Encounters Encounter Date Encounter Type Care Provider Facility Start: 11-19-2024 End: 11-19-2024 Refill Andres Broderick DO Work Phone: [facility] Comment on above: Mixed hyperlipidemia Start: 10-03-2024 End: 10-03-2024 Office outpatient visit 25 minutes Andres Broderick DO Work Phone: [facility] Comment on above: 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 Dx); Impaired fasting glucose; Anxiety; Chronic gastritis, presence of bleeding unspecified, unspecified gastritis type; Class 2 severe obesity due to excess calories with serious comorbidity and body mass index (BMI) of 39.0 to 39.9 in adult ([facility]); Vitamin D deficiency; Depressive disorder Start: 10-03-2024 End: 10-03-2024 ambulatory [facility] Start: 09-18-2024 End: 09-18-2024 Patient encounter procedure [facility] [address] Work Phone: Start: 09-18-2024 End: 09-18-2024 ambulatory NON STAFF [facility] Work Phone: Start: 09-17-2024 End: 09-17-2024 Patient encounter procedure [facility] Work Phone: [facility] Comment on above: Medicare annual well ness visit, subsequent (Primary Dx); Screening for depression Start: 09-17-2024 End: 09-17-2024 [facility] Start: 08-13-2024 End: 08-13-2024 Refill Mary Iftikhar MUCK BOSS [facility] Comment on above: Mixed hyperlipidemia Start: 07-10-2024 End: 07-22-2024 [facility]: [facility] Start: 02-07-2024 End: 02-07-2024 Refill Kate Thornton LITIGATION LEGAL ASSISTANT-ELEMENTARY SUPERVISOR Work Phone: [facility] Comment on above: Mixed hyperlipidemia Start: 02-01-2024 End: 02-01-2024 ambulatory [facility] Start: 02-01-2024 End: 02-01-2024 Office outpatient visit 25 minutes Kate Thornton LITIGATION LEGAL ASSISTANT-ELEMENTARY SUPERVISOR Work Phone: [facility] Comment on above: Situational anxiety (Primary Dx); Mixed hyperlipidemia; Essential hypertension Start: 02-01-2024 End: 02-01-2024 ambulatory [facility] Start: 01-25-2024 End: 02-01-2024 Telephone encounter Kate Thornton LITIGATION LEGAL ASSISTANT-ELEMENTARY SUPERVISOR Work Phone: [facility] Start: 01-23-2024 End: 01-23-2024 Patient encounter procedure [facility] [address] Work Phone: Start: 01-23-2024 End: 01-23-2024 ambulatory NON STAFF [facility] Work Phone: Start: 12-07-2023 Orders Only Kate Thornton LITIGATION LEGAL ASSISTANT-ELEMENTARY SUPERVISOR Work Phone: [facility] Comment on above: Erosive (osteo)arthr itis (Primary Dx) Start: 12-04-2023 End: 12-05-2023 ambulatory [facility] Start: 11-28-2023 End: 11-28-2023 ambulatory [facility] Start: 11-28-2023 End: 11-28-2023 ambulatory [facility] Comment on above: Swelling of multiple joints (Primary Dx) Start: 11-28-2023 End: 11-28-2023 Office outpatient visit 25 minutes Kate Thornton LITIGATION LEGAL ASSISTANT-ELEMENTARY SUPERVISOR Work Phone: [facility] Comment on above: Swelling of multiple joints (Primary Dx); Stage 3a chronic kidney disease (CMS-HCC); Palpitations Start: 11-21-2023 Refill Kate Thornton LITIGATION LEGAL ASSISTANT-ELEMENTARY SUPERVISOR Work Phone: [facility] Comment on above: Mixed hyperlipidemia Start: 11-07-2023 End: 11-07-2023 Patient encounter procedure [facility] Work Phone: Start: 10-24-2023 End: 10-24-2023 Patient encounter procedure [facility] [address] Work Phone: Start: 10-24-2023 End: 10-24-2023 ambulatory NON STAFF [facility] Work Phone: Start: 10-03-2023 Office outpatient vi sit 25 minutes Aldo Olexa [facility] Start: 10-03-2023 End: 10-03-2023 Patient encounter procedure [facility] Start: 10-03-2023 End: 10-03-2023 ambulatory NON STAFF [employer] Other Start: 10-03-2023 End: 10-03-2023 Patient encounter procedure [facility] Start: 08-07-2023 End: 08-07-2023 ambulatory JOSEFINA MELISSA Not Available Start: 09-01-2022 End: 09-01-2022 ambulatory Tanna Paige Other [employer] Other Start: 09-01-2022 Office outpatient vi sit 15 minutes Tanna Grecia [facility] Start: 09-28-2021 End: 09-28-2021 ambulatory Aldo Olexa Other [employer] Other Start: 09-28-2021 Office outpatient vi sit 15 minutes Aldo Olexa [facility] Start: 08-19-2021 End: 08-19-2021 ambulatory Aldo Olexa Other [employer] Other Start: 08-19-2021 Office outpatient ne w 30 minutes Aldo Olexa [facility] Start: 10-29-2020 End: 10-30-2020 Patient encounter procedure NONE LISTED REQUEST Facility: Procedures Date Procedure Procedure Detail Performing Clinician Start: 09-17-2024 Adult depression scr eening assessment Andres Sachakristina DO Work Phone: Start: 02-01-2024 Follow-up visit Follow-up KATE THORNTON Start: 02-01-2024 Adult depression scr eening assessment Kate Thornton LITIGATION LEGAL ASSISTANT-ELEMENTARY SUPERVISOR Work Phone: Start: 11-28-2023 Ecg routine ecg w/le ast 12 lds w/i&r Kate Thornton LITIGATION LEGAL ASSISTANT-ELEMENTARY SUPERVISOR Work Phone: Start: 11-28-2023 Adult depression scr eening assessment Kate Thornton LITIGATION LEGAL ASSISTANT-ELEMENTARY SUPERVISOR Work Phone: Start: 10-24-2023 MRI of right knee Start: 10-03-2023 X-ray of right knee Start: 05-12-2023 Mammography Kate Thornton LITIGATION LEGAL ASSISTANT-ELEMENTARY SUPERVISOR Work Phone: Start: 03-20-2023 Adult depression scr eening assessment Kate Thornton LITIGATION LEGAL ASSISTANT-ELEMENTARY SUPERVISOR Work Phone: Plan of Treatment Date Care Activity Detail Author Start: 10-03-2025 Adult BMI Screening Adult BMI Screen ing [facility] [employer] [facility] Start: 10-03-2025 Tobacco Screening [facility] Start: 09-18-2025 End: 09-18-2025 Patient encounter procedure 09/18/2025 9:40 AM EST [facility] [address] [address] [facility] Start: 09-17-2025 Adult BMI Screening Adult BMI Screen ing [facility] Start: 09-17-2025 Depression Screening Depression Scre ening [facility] Start: 09-17-2025 Fall Risk Screening Fall Risk Screen ing [facility] [employer] [facility] Start: 09-17-2025 Medicare Annual Well ness Visit Medicare Annual Wellness Visit [facility] Start: 05-12-2025 Screening for malign ant neoplasm of breast Mammogram [facility] [employer] [facility] Start: 01-31-2025 Adult BMI Screening Adult BMI Screen ing [facility] Start: 01-31-2025 Depression [facility] Start: 01-31-2025 Fall Risk Screening Fall Risk Screen ing [facility] Start: 01-31-2025 Tobacco Screening Tobacco Screening [facility] Start: 11-27-2024 Adult BMI Screening Adult BMI Screen ing [facility] Start: 11-27-2024 Depression Screening Depression Scre ening [facility] Start: 11-27-2024 Fall Risk Screening Fall Risk Screen ing [facility] Start: 11-27-2024 Tobacco Screening Tobacco Screening [facility] Start: 10-03-2024 End: 10-03-2024 Patient encounter procedure 10/03/2024 1:00 PM EST [facility] [address] [place] [address] Andres Broderick, DO [address] [facility] [address] [facility] Start: 09-18-2024 Hepatitis B core ant ibody measurement [facility] Start: 09-18-2024 [facility] Start: 09-03-2024 End: 09-03-2024 Patient encounter procedure 09/03/2024 9:00 AM EST Office Visit [facility] [address] [place] [address] [facility] Start: 06-02-2024 Adult BMI Screening Adult BMI Screen ing [facility] Start: 06-02-2024 Tobacco Screening Tobacco Screening [facility] Start: 03-20-2024 Depression Screening Depression Scre ening [facility] Start: 03-20-2024 Medicare Annual Well ness Visit Medicare Annual Wellness Visit [facility] Start: 03-18-2024 Fall Risk Screening Fall Risk Screen ing [facility] Start: 01-23-2024 [facility] Start: 11-28-2023 End: 11-27-2024 XR Hand - right 3 Views X-ray hand right minimum 3 views Imaging Routine Swelling of multiple joints Expected: 11/28/2023, Expires: 11/27/2024 [facility]: Comment on above: Expected: 11/28/2023 , Expires: 11/27/2024 Start: 01-24-2013 DTaP,Tdap and Td Vac cines (1 - Tdap) DTaP,Tdap and Td Vaccines (1 - Tdap) [facility] Start: 2001 Administration of varicella zoster vaccine Zoster (Shingles) Vaccine (1 of 2) [facility] Start: 1969 Adult BMI Follow Up Plan Adult BMI Follow Up Plan [facility] End: 10-03-2025 Basic metabolic 2000 panel - Serum or Plasma Basic Metabolic Panel Lab Routine 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 1 Occurrences starting 10/03/2024 until 10/03/2025 [facility] Work Phone: Comment on above: 1 Occurrences starti ng 10/03/2024 until 10/03/2025 End: 10-03-2025 Hemoglobin A1c/Hemoglobin.total in Blood Hemoglobin A1c Lab Routine Impaired fasting glucose 1 Occurrences starting 10/03/2024 until 10/03/2025 [facility] Comment on above: 1 Occurrences starti ng 10/03/2024 until 10/03/2025 Hepatitis B virus maravilla rface Ab [Presence] in Serum [facility] Hepatitis B virus maravilla rface Ag [Presence] in Serum or Plasma by Immunoassay [facility] Hepatitis C virus Ig G Ab [Presence] in Serum or Plasma by Immunoassay [facility] Interferon gamma assay [facility] Mycobacterium tuberculosis stimulated gamma interferon [Interpretation] in Blood Qualitative [facility] Mycobacterium tuberculosis stimulated gamma interferon release by CD4+ and CD8+ T-cells [Units/volume] corrected for background in Blood [facility] Mycobacterium tuberculosis tuberculin stimulated gamma interferon [Presence] in Blood [facility] POCT EKG POCT EKG ECG Rou ivone Palpitations 11/28/2023 10:12 AM EDT [facility] Work Phone: Immunizations Immunization Date Immunization Notes Care Provider Fa jerod 07-21-2022 Covid-19, Mrna, Lnp- s, Bivalent, Pf, 50mcg/0.5ml or 25mcg/0.25ml Kate Thornton LITIGATION LEGAL ASSISTANT-ELEMENTARY SUPERVISOR Work Phone: [facility] 07-21-2022 SARS-COV-2 (COVID-19 ) Vaccine, Unspecified Kate Thornton LITIGATION LEGAL ASSISTANT-ELEMENTARY SUPERVISOR Work Phone: [facility] [employer] [facility] 06-29-2021 Influenza Vaccine, Quadrivalent, Adjuvanted Kate Thornton LITIGATION LEGAL ASSISTANT-ELEMENTARY SUPERVISOR Work Phone: [facility] 11-03-2020 COVID-19, mRNA, LNP- S, PF, 30mcg/0.3mL Dose Kate Thornton LITIGATION LEGAL ASSISTANT-ELEMENTARY SUPERVISOR Work Phone: [facility] 10-29-2020 COVID-19, mRNA, LNP- S, PF, 100mcg/0.5mL Dose Kate Thornton LITIGATION LEGAL ASSISTANT-ELEMENTARY SUPERVISOR Work Phone: [facility] 06-02-2020 Influenza Vaccine, Quadrivalent, Adjuvanted Kate Thornton LITIGATION LEGAL ASSISTANT-ELEMENTARY SUPERVISOR Work Phone: [facility] 07-18-2018 Influenza, injectabl e, [facility]in [place] Canine Kidney, preservative free, quadrivalent Kate Thornton LITIGATION LEGAL ASSISTANT-ELEMENTARY SUPERVISOR Work Phone: [facility] 07-18-2018 pneumococcal polysaccharide vaccine, 23 valent Kate Thornton LITIGATION LEGAL ASSISTANT-ELEMENTARY SUPERVISOR Work Phone: [facility] 02-13-2017 pneumococcal conjuga te vaccine, 13 valent Kate Thornton LITIGATION LEGAL ASSISTANT-ELEMENTARY SUPERVISOR Work Phone: [facility] 01-23-2013 TD(adult) unspecifie d formulation Kate Thornton LITIGATION LEGAL ASSISTANT-ELEMENTARY SUPERVISOR Work Phone: [facility] Payers Date Payer Category Payer Medicare [employer] MEDICARE A ETNA MEDICARE PLAN (PPO) [id number] 2022-Present [phone] [address] [place] [address] [id number] 2022 Medicare HMO [employer] MEDICARE [id number] 2022 Medicare [id number] 1958 Self-pay 1950 Unknown [id number] [id number]. 1258 1950 Unknown [id number] 2.16.840.1.461784.3.579.2. 1258 1950 Unknown [id number] 2.16.840.1.518901.3.579.2. 1285 1950 Unknown [id number] 2.16.840.1.762230.3.579.2. 1285 1950 Unknown [id number] 2.16.840.1.747492.3.579.2. 1285 1951 Unknown [id number] 2.16.840.1.651353.3.579.2. 1285 1951 Unknown [id number] 2.16.840.1.665787.3.579.2. 1285 1950 Unknown [id number] 2.16.840.1.409895.3.579.2. 1285 1951 Unknown [id number] 2.16.840.1.956028.3.579.2. 1285 1950 Unknown [id number] 2.16.840.1.647432.3.579.2. 128 Private Health Insurance [facility] [id number] [id number] Unknown [id number] 2.0.1.589811.3.579.2. 593 Unknown [id number] 2.840.1.686424.3.579.2. 531 Unknown [id number] 2.840.1.542719.3.579.2. 531 Unknown [id number] 2.0.1.315445.3.579.2. 531 Unknown [id number] 2.0.1.624224.3.579.2. 531 Social History Date Type Detail Facility Start: 09-17-2024 End: 10-03-2024 [facility] At [facility] Start: 08-17-2021 End: 11-28-2023 Tobacco smoking status NHIS Never smoked tobacco (finding) [facility] Start: 1950 Sex Assigned At Female [facility] Start: 04-09-2015 End: 09-19-2024 Sex Female (finding) [facility] Start: 09-20-2019 End: 11-28-2023 Tobacco use and exposure Smokeless tobacco non-user [facility] Start: 02-01-2024 End: 10-03-2024 Alcoholic beverage intake Current drinker of alcohol (finding) [facility] Start: 09-17-2024 End: 10-03-2024 History of Social function [facility] Has the [employer], [employer], or [employer] threatened to shut off services in your home in past 12Mo No [facility] Do you belong to any clubs or organizations such as restorationist groups, unions, fraternal or athletic groups, or school groups? Yes [facility] Are you now , , , , never or living with a partner? [facility] How hard is it for y ou to pay for the very basics like food, housing, medical care, and heating Not hard at all [facility] Do you feel stress - tense, restless, nervous, or anxious, or unable to sleep at night because your mind is troubled all the time - these days [OSQ] Not at all [facility] Start: 09-20-2019 Alcohol Comment Social/occasional Pr [facility] Start: 1950 Sex assigned at Not on file P [facility] Clinical Notes 12-04-2014 to 10-03-2024 Andres Broderick, DO - 10/03/2024 1:00 PM Kota Broderick, DO - 09/17/2024 9:40 AM ESTTelephone Encounter - Andres Broderick, DO - 08/13/2024 9:33 AM EST Note Date & Type Note Facility 10-03-2024 History of Presen t illness Narrative Subjective Patient ID: Lisa Cochran is a 74 y.o. female. Lisa presents today for a CV recheck. She is taking her medications. She is not having any side effects. She has anxiety. She does use alprazolam p.r.n.. She uses just a couple a month. It is effective when she uses it. She does not have any side effects. The following portions of the patient's history were reviewed and updated as appropriate: allergies, current medications, past family history, past medical history, past social history, past surgical history, problem list, and medication reconciliation was completed including current medication and post discharge medication. Review of Systems Constitutional: Negative. HENT: Negative. Eyes: Negative. Respiratory: Negative. Cardiovascular: Negative. Gastrointestinal: Negative. Endocrine: Negative. Genitourinary: Negative. Musculoskeletal: Positive for arthralgias. Skin: Negative. Allergic/Immunologic: Negative. Neurological: Negative. Psychiatric/Behavioral: Positive for dysphoric mood (stable ). The patient is nervous/anxious (situational ). Objective Physical Exam Vitals reviewed. Constitutional: General: She is not in acute distress. HENT: Head: Normocephalic. Eyes: Extraocular Movements: Extraocular movements intact. Conjunctiva/sclera: Conjunctivae normal. Neck: Vascular: No carotid bruit. Cardiovascular: Rate and Rhythm: Normal rate and regular rhythm. Pulses: Normal pulses. Heart sounds: Normal heart sounds. No murmur heard. Pulmonary: Effort: Pulmonary effort is normal. No respiratory distress. Breath sounds: Normal breath sounds. No wheezing, rhonchi or rales. Abdominal: General: Bowel sounds are normal. Palpations: Abdomen is soft. Tenderness: There is no abdominal tenderness. Musculoskeletal: Cervical back: Neck supple. Lymphadenopathy: Cervical: No cervical adenopathy. Skin: General: Skin is warm. Neurological: General: No focal deficit present. Mental Status: She is oriented to person, place, and time. Cranial Nerves: Cranial nerves 2-12 are intact. Psychiatric: Attention and Perception: Attention normal. Mood and Affect: Mood and affect normal. Speech: Speech normal. Behavior: Behavior normal. Behavior is cooperative. Thought Content: Thought content normal. Cognition and Memory: Cognition and memory normal. Judgment: Judgment normal. Assessment/Plan Lisa was seen today for hypothyroidism and hypertension. Diagnoses and all orders for this visit: 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 - Basic Metabolic Panel; Future Blood pressure is excellent. Check BMP. Continue current regimen Impaired fasting glucose - Hemoglobin A1c; Future Check A1c to see if she has developed diabetes Anxiety She is doing well with alprazolam. It is a high risk medication. She does not have any side effects. It is helping improve her quality of life. The OARRS/MAPPS database was reviewed today and found to be appropriate. No indication of medication diversion, or non compliance. Chronic gastritis, presence of bleeding unspecified, unspecified gastritis type Stomach has been very good. She is using omeprazole every day. Risks of chronic PPI use discussed. We will try to cut back to every other day. Class 2 severe obesity due to excess calories with serious comorbidity and body mass index (BMI) of 39.0 to 39.9 in adult (CMS-HCC) She is obese. She would benefit from weight loss. It is contributing to hypertension. Diet, exercise and weight loss discussed and encouraged. She is basically sedentary. Vitamin D deficiency She has a vitamin-D deficiency and she is taking steroids for an extended period of time. I recommended a DEXA scan to screen for osteoporosis. She declined. Risks of fractures discussed. She said she took a tumble last month and did not break anything. I told her that was good but the next time it happens she might break a bone. She still declined further evaluation. Depressive disorder Stable. Continue current regimen documented in this encounter [facility] 09-17-2024 History of Presen t illness Narrative Subjective SUBJECTIVE: Patient ID: Lisa Cochran is a 74 y.o. female who presents for a Medicare Annual Wellness exam. HPI The following portions of the patient's history were reviewed and updated as appropriate: allergies, current medications, past family history, past medical history, past social history, past surgical history and problem list. AWV FLOWSHEET : Lifestyle Assessment Do you smoke or use smokeless tobacco?: No If you smoke or use smokeless tobacco, are you ready to quit?: NA Are you exposed to secondhand smoke?: No On average, how many drinks of alcohol do you consume in a week?: None Do you exercise for 30 or more minutes on average at least 3 days a week?: (!) Never Do you have any tooth, denture, or oral problems?: No Do you snore or has anyone told you that you snore?: No Do you try to eat a balanced diet?: Yes Do you experience leakage of urine, also known as urinary incontinence?: (!) Sometimes Do you have difficulty performing any of these activities? (check all that apply): None Do you have difficulty performing any of these activities? (check all that apply): None Fall Risk Fall Risk Assessment Completed?: Yes Have you fallen in the past year?: (!) Yes How many times?: 1 Were you injured?: No Are you worried about falling?: (!) Yes Do you feel unsteady when standing or walking?: (!) Yes Risk Stratification: Moderate Risk Depression Screening Little interest or pleasure in doing things: Not at all Feeling down, depressed, or hopeless: Not at all Trouble falling or staying asleep, or sleeping too much: (!) Several days Feeling tired or having little energy: (!) More than half the days Poor appetite or overeating: (!) Several days Feeling bad about yourself - or that you are a failure or have let yourself or your family down: Not at all Trouble concentrating on things, such as reading the newspaper or watching television: Not at all Moving or speaking so slowly that other people could have noticed. Or the opposite - being so fidgety or restless that you have been moving around a lot more than usual: Not at all Thoughts that you would be better off , or of hurting yourself in some way: Not at all PEG Scale Safety Assessment Do you have throw rugs on the floor?: (!) Yes Do you feel safe at your home?: Yes Do you feel unsteady when walking?: (!) Yes Are you having difficulty with driving?: No Do you have trouble seeing?: No What assistive device do you use? (check all that apply): None Hearing Assessment Do you strain or struggle to hear/understand conversations?: No Do you have trouble hearing the television or radio when others do not?: No Does your family ever voice concerns about your hearing?: No Do you wear hearing aid/s?: No Personal Health During the past 4 weeks, how would you rate your overall health?: (!) Fair Do you understand how to take all of your medications?: Yes How confident are you that you can control and manage most of your health problems?: Very confident In the past 12 months, how many times have you been hospitalized?: None End of Life Planning Do you have a living will?: (!) No Do you have a durable power of health care attorney?: (!) No Cognitive Screening Do you have trouble remembering or recalling facts or events?: No Do family members or caregivers report that you have difficulty remembering things?: No [employer] Normal REVIEW OF SYSTEMS: Review of Systems Objective PHYSICAL EXAMINATION: Vitals: 09/17/24 0937 BP: 138/88 BP Site: Left Arm Weight: 94.5 kg (208 lb 6.4 oz) Height: 154.9 cm (5' 1 ) Physical Exam Assessment/Plan ASSESSMENT/PLAN Encounter Diagnoses Name Primary? Medicare annual wellness visit, subsequent Yes Screening for depression Health maintenance discussed. Depression screen was negative. At least 3 minute spent administering and discussing. Cognitive evaluation did not reveal any impairment. She does not have advanced directives in place. She was encouraged to do so. Return in about 1 year (around 09/17/2025). documented in this encounter [facility] 08-13-2024 Miscellaneous Notes Nelia george of this note might be different from the original. Rx sent in. She is due for a CV visit and Medicare wellness Scheduled documented in this encounter [facility] 08-13-2024 Telephone encount er Note Rx sent in. She is due for a CV visit and Medicare wellness [facility] 08-13-2024 Telephone encount er Note Scheduled [facility] 07-10-2024 Miscellaneous Notes Formattin g of this note might be different from the original. ----- Message from JOSSELYN Babcock sent at 02/01/2024 1:08 PM EDT ----- Regarding: cv Due late jul, early aug 27 with fasting labs LM on VM LM on VM LM on VM/ called 3 times documented in this encounter [facility] 07-10-2024 Telephone encount er Note ----- Message from JOSSELYN Babcock sent at 02/01/2024 1:08 PM EDT ----- Regarding: cv Due late jul, early aug 27 with fasting labs [facility] 07-10-2024 Telephone encount er Note LM on VM [facility] [employer] [facility] 07-10-2024 Telephone encount er Note LM on VM [facility] [employer] [facility] 07-10-2024 Telephone encount er Note LM on VM[facility]-01-2024 History of Presen t illness Narrative Subjective Patient ID: Lisa Cochran is a 73 y.o. female. She has periodic anxiety about certain activities She uses the xanax very sparingly for these activities It works well for her and doesn't overly sedate her, things like apts, funerals or activities that she is unsure what to expect She is also prepared to get her lab work today Her blood pressure has been under control at home She is not having difficulty with her medications for blood pressure and lipids No issues with shortness of breath, fluid retention, chest pain The following portions of the patient's history were reviewed and updated as appropriate: allergies, current medications, past family history, past medical history, past social history, past surgical history, problem list, and medication reconciliation was completed including current medication and post discharge medication. Review of Systems Constitutional: Negative. HENT: Negative. Eyes: Negative. Respiratory: Negative. Cardiovascular: Negative. Gastrointestinal: Negative. Endocrine: Negative. Genitourinary: Negative. Musculoskeletal: Positive for arthralgias and myalgias. Allergic/Immunologic: Negative. Neurological: Negative. Psychiatric/Behavioral: The patient is nervous/anxious. Objective Physical Exam Vitals and nursing note reviewed. Constitutional: Appearance: She is obese. HENT: Head: Normocephalic. Eyes: Conjunctiva/sclera: Conjunctivae normal. Neck: Vascular: No carotid bruit. Cardiovascular: Rate and Rhythm: Normal rate and regular rhythm. Pulses: Normal pulses. Heart sounds: Normal heart sounds. No murmur heard. Pulmonary: Effort: Pulmonary effort is normal. No respiratory distress. Breath sounds: Normal breath sounds. Musculoskeletal: Right lower leg: No edema. Left lower leg: No edema. Lymphadenopathy: Cervical: No cervical adenopathy. Skin: General: Skin is warm and dry. Capillary Refill: Capillary refill takes less than 2 seconds. Neurological: Mental Status: She is alert and oriented to person, place, and time. Psychiatric: Thought Content: Thought content normal. Judgment: Judgment normal. Assessment/Plan Lisa was seen today for follow-up. Diagnoses and all orders for this visit: Situational anxiety - ALPRAZolam (XANAX) 0.25 mg tablet; Take 1 tablet (0.25 mg total) by mouth 2 (two) times a day as needed for anxiety. Mixed hyperlipidemia - Comprehensive metabolic panel; Future - Lipid panel; Future Essential hypertension - Comprehensive metabolic panel; Future - Lipid panel; Future Reviewed her OARRS, she has not refilled this since 07/26 so does use this regularly, she does only use this situationally Will refill today Also will recheck her labs to determine if her cholesterol is stable, she is tolerating her medication well Her blood pressure is stable, no changes made today, her cmp is also drawn The OARRS/MAPPS database was reviewed today and found to be appropriate. No indication of medication diversion, or non compliance. JOSSELYN Gomez 02/01/24 1304 documented in this encounter [facility] [employer] 01-25-2024 Miscellaneous Notes Formattin g of this note might be different from the original. ----- Message from JOSSELYN Gomez sent at 01/25/2024 9:21 AM EDT ----- Regarding: prescription She called in for a refill of ativan today, it hasn't been filled since Jul 26. This is a controlled substance. After that much time it cannot simply be refilled without an apt. - Kate Has appointment 01/31, do you want to wait till then to fill I cannot fill it until she is seen, it is a controlled substance. Then she will have to wait you dont have anything open any sooner She could come in tomorrow or even to a telehealth tomorrow this is a pretty simple apt LM on VM documented in this encounter [facility] 01-25-2024 Telephone encount er Note ----- Message from JOSSELYN Gomez sent at 01/25/2024 9:21 AM EDT ----- Regarding: prescription She called in for a refill of ativan today, it hasn't been filled since Jul 26. This is a controlled substance. After that much time it cannot simply be refilled without an apt. - Kate [facility] 01-25-2024 Telephone encount er Note Has appointment 01/31, do you want to wait till then to fill [facility] 01-25-2024 Telephone encount er Note I cannot fill it until she is seen, it is a controlled substance. [facility] 01-25-2024 Telephone encount er Note Then she will have to wait you dont have anything open any sooner [facility] 01-25-2024 Telephone encount er Note She could come in tomorrow or even to a telehealth tomorrow this is a pretty simple apt [facility] 01-25-2024 Telephone encount er Note LM on VM [facility] 11-28-2023 History of Presen t illness [...] acid; Future Stage 3a chronic kidney disease ([facility]) - Comprehensive metabolic panel; Future - [...] Gomez 11/28/23 1217 documented in this encounter [facility] [employer] 10-03-2023 Evaluation note Encounter Date Diagnosis Assessment Notes Sep, Arthritis of right knee (ICD-10 [...] pain of right knee (ICD-10 - M25.561) [employer] Other 12-29-2022 Evaluation note* Encounter Date Diagnosis [...] care provider if no improvement of symptoms. [employer] Other 01-25-2022 Evaluation note* Encounter Date Diagnosis [...] derangement of left knee (ICD-10 - M23.92) [employer] Other 12-16-2021 Evaluation note* Encounter Date Diagnosis [...] derangement of left knee (ICD-10 - M23.92) [employer] Other 04-02-2015 History general Narrative - Reported* Type Description Date Medical History HTN Medical History Hyperlipidemia Medical History Basal Cell carcinoma of scalp Surgical History basal cell carcinoma of scalp ( Dr Llanos) 12/04/14 [employer] Other Evaluation noteNo assessment information available [facility] Work Phone: Evaluation note* Diagnosis Onset Date Resolution Status Acute medial meniscus tear of right knee acute Arthritis of right knee acut e [facility] Work Phone: Evaluation note* Diagnosis Medicare annual wellness visit, subsequent- Primary Screening for depression documented in this encounter [facility] [employer] [facility]* Diagnosis 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- Primary Impaired fasting glucose Anxiety Anxiety state, unspecified Chronic gastritis, presence of bleeding unspecified, unspecified gastritis type Class 2 severe obesity due to excess calories with serious comorbidity and body mass index (BMI) of 39.0 to 39.9 in adult ([facility]) Vitamin D deficiency Depressive disorder Depressive disorder, not elsewhere classified [facility] Diagnosis Mixed hyperlipidemia [facility] Diagnosis Situational anxiety- Primary Mixed hyperlipidemia Essential hypertension Unspecified essential hypertension [facility] Diagnosis Mixed hyperlipidemia [facility] Diagnosis Swelling of multiple joints- Primary Stage 3a chronic kidney disease ([facility]) Palpitations [facility] Diagnosis Swelling of multiple joints- Primary [facility] Diagnosis Erosive (osteo)arthritis- Primary [facility] Diagnosis Erosive (osteo)arthritis- Primary [facility] Diagnosis Mixed hyperlipidemia documented in this [...] Erosive (osteo)arthritis Kate Thornton APRN-FNP [address] [place] [address] Dax Coello MD [address] [place] [address] Referral ID Status Reason Start Date Expiration Date Visits Requested Visits Authorized [id number] Pending Review Specialty Services Required 12/07/2023 12/06/2024 1 1 [facility] Summary Purpose Family History Relationship Condition [...] and Reason for Visit 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 x 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.561 M17.11 Chief Complaint MRI RESULTS r31.29 Reason for Visit Acute medial meniscu s tear of right knee Arthritis of right knee Additional Source Comments INFORMATION SOURCE (unrecogn ized section and content) DATE CREATED AUTHOR 10/27/2020 [facility] DATE CREATED AUTHOR AUTHOR'S ORGANIZ ATION 12/15/2021 [facility] DATE CREATED AUTHOR AUTHOR'S ORGANIZ ATION 08/08/2023 [facility] EPIC DATE CREATED AUTHOR AUTHOR'S ORGANIZ ATION 12/05/2023 [facility] DATE CREATED AUTHOR AUTHOR'S ORGANIZ ATION 10/01/2024 [facility] DATE CREATED AUTHOR AUTHOR'S ORGANIZ ATION 10/05/2024 [facility] DATE CREATED AUTHOR AUTHOR'S ORGANIZ ATION 10/06/2024 [facility] REASON FOR VISIT (unrecogniz ed section and content) Reason Comments MAW Reason Comments Hypothyroidism Hypertension Reason Comments Med Refill Reason Comments Follow-up medication Reason Comments swallen finger ,toes hands thighs [...] October 24, 2023 End: October 24, 2023 Team Status: Inactive Member Role Status [...] September 18, 2024 End: September 18, 2024 Rehab Aid Relationship Specialty Start Date End Date Andres Broderick DO [address] [facility] [place] [address] PCP - General 10/01/24 Rehab Aid Relationship Specialty Start Date End Date [facility] [address] [place] [address] PCP - General Family Medicine 08/01/18 Rehab Aid Relationship Specialty Start Date End Date Kate Thornton LITIGATION LEGAL ASSISTANT-[facility] [address] [place] [address] PCP - General Family Medicine 08/01/18 Rehab Aid Relationship Specialty Start Date End Date Kate ThorntonFORESTN-ELEMENTARY SUPERVISOR [address] [place] [address] PCP - General Family Medicine 08/01/18 Rehab Aid Relationship Specialty Start Date End Date Kate Thornton, LITIGATION LEGAL ASSISTANT-ELEMENTARY SUPERVISOR [address] [place] [address] PCP - General Family Medicine 08/01/18 Rehab Aid Relationship Specialty Start Date End Date Kate Thornton, LITIGATION LEGAL ASSISTANT-ELEMENTARY SUPERVISOR [address] [place] [address] PCP - General Family Medicine 08/01/18 Rehab Aid Relationship Specialty Start Date End Date Andres Broderick DO [address] [place] [address] PCP - General 10/01/24 Goals (unrecognized section and content) Goals may [...] BE BASED ON THE PRIMARY CLINICAL RECORDS. [facility] [employer] [facility]. provides no warranty or guarantee of the accuracy or completeness of information in this document.
--- NOTE | 2024-12-03 20:47 | ECG_ITS ---
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 Measurements Intervals [place] Rate: 108 P: 16 OR: 124 QRS: 0 QRSD: 70 T: 1 QT: 306 QTc: 369 Interpretive Statements 1120 Sinus tachycardia 5211 Minimal voltage criteria for LVH, may be normal variant Borderline ECG No previous ECG available for comparison Electronically Signed On 12-04-2024 6:26:03 EDT by RON BEDOLLA M.D.
--- NOTE | 2024-12-03 20:49 | ED.GENADUL1 ---
Documented by User: MATILDA Escalante 12/03/24 21:27 HPI HPI - General Adult General Chief complaint: Weakness Stated complaint: Dizzness Time Seen by Provider: 12/03/24 20:33 Source: patient Mode of arrival: Wheelchair History of Present Illness HPI narrative: Patient is a 74-year-old female with a history of hypertension, hyperlipidemia, rheumatoid arthritis, anxiety who presents to the emergency department for evaluation of weakness, dizziness and right flank pain. She states she was feeling well yesterday. She states today she has not been feeling well, she feels generalized weakness and dizziness that she describes as a sensation of herself spinning. She has not had any recent upper respiratory illness. She denies chest pain but states she did feel short of breath earlier when she was exerting herself because she felt so weak. She has not had any fevers, vomiting or diarrhea. She thinks she may have a UTI as she had right flank pain earlier today that has essentially completely resolved at this time. She does have a history of kidney stones. She reports urinary frequency. No falls or syncope. She denies any history of vertigo previously. Related Data Previous Rx's ?Medication ?Instructions ?Recorded cephalexin 500 mg capsule 500 mg PO TID 7 days #21 caps 12/04/24 ketorolac 10 mg tablet 10 mg PO Q8H PRN pain 3 days #10 12/04/24 tabs ondansetron HCl 4 mg tablet 4 mg PO Q6H PRN nausea and 12/04/24 vomiting #10 tabs Allergies Allergy/AdvReac Type Severity Reaction Status Date / Time lisinopril Allergy Severe Swelling Verified 12/03/24 20:42 of Lip/Tongue/Throat Opioid HPI Opioid Management Most Recent Opioid Data: No Data to Display Review of Systems ROS Constitutional Denies: fever or chills Eyes Denies: change in vision Ears, nose, mouth, and throat Denies: throat pain or nasal congestion Cardiovascular Denies: chest pain Respiratory Reports: shortness of breath; Denies: cough Gastrointestinal Denies: abdominal pain, nausea, vomiting or diarrhea Musculoskeletal Denies: back pain or neck pain Integumentary/Breast Denies: rash Neurological Denies: numbness in extremities or weakness in extremities Hematologic/Lymphatic Denies: easy bruising or easy bleeding PFSH PFSH Social History Little interest or pleasure in doing things: not at all Feeling down, depressed, or hopeless: not at all Exam Narrative Exam Narrative: Gen.: Awake, alert, in no distress Head: Normocephalic, atraumatic ENT: Moist mucous membranes, bilateral TMs clear Respiratory: No respiratory distress, lungs clear bilaterally Cardio: Tachycardia Gastrointestinal: Abdomen is soft, nondistended and nontender to palpation Extremities: Moves extremities equally, no injuries noted Psych: Normal mood and affect Neuro: No focal neuro deficit Skin: Warm, dry, intact Constitutional Vital Signs, click to edit/add: Last Vital Signs Temp 98.9 F 12/03/24 20:38 Pulse 93 H 12/03/24 21:41 Resp 21 H 12/03/24 21:41 BP 132/106 H 12/03/24 20:38 Pulse Ox 95 12/03/24 20:38 O2 Del Method Room Air 12/03/24 20:38 Course Vital Signs Vital signs: Vital Signs Temperature 98.9 F 12/03/24 20:38 Pulse Rate 116 H 12/03/24 20:38 Respiratory Rate 20 12/03/24 20:38 Blood Pressure 132/106 H 12/03/24 20:38 Pulse Oximetry 95 12/03/24 20:38 Oxygen Delivery Method Room Air 12/03/24 20:38 Temperature 98.9 F 12/03/24 20:38 Pulse Rate 93 H 12/03/24 21:41 Respiratory Rate 21 H 12/03/24 21:41 Blood Pressure 132/106 H 12/03/24 20:38 Pulse Oximetry 95 12/03/24 20:38 Oxygen Delivery Method Room Air 12/03/24 20:38 Medical Decision Making MDM Narrative Medical decision making narrative: 2124: Patient medicated with IV fluids and Antivert for dizziness. She was sent for CTs of the head, chest x-ray and a CT of the abdomen and pelvis without contrast due to the right flank pain. Labs including blood cultures and lactic acid are pending. Patient has not produced a urine specimen at this time. Tachycardia has improved, case is turned over to attending physician at this time for disposition SHARED APC VISIT, PHYSICIAN ATTESTATION: [id number] I performed a substantive part of the MDM during the patient?s E/M visit. I personally evaluated and examined the patient. I personally made or approved the documented management plan and acknowledge its risk of complications. Medical Records Medical records reviewed: Yes I reviewed the patient's medical records Lab Data Lab results reviewed: Yes I reviewed the patient's lab results Labs: Lab Results 12/03/24 12/03/24 12/04/24 Range/Units 20:52 21:43 00:01 WBC 13.8 H (4.0-11.0) 10^3/uL RBC 4.71 (4.20-5.40) 10^6/uL Hgb 13.2 (12.0-16.0) g/dL Hct 41.0 (36.0-48.0) % MCV 87.0 (81.0-99.0) fL MCH 28.0 (26.7-34.0) pg MCHC 32.2 (29.9-35.2) g/dL RDW 13.8 (11.0-15.0) % Plt Count 313 (150-450) 10^3/uL MPV 10.4 (9.5-13.5) fL Seg Neuts % (Manual) 88.0 H (43.0-75.0) Band Neutrophils % 3.0 (0-5) % Lymphocytes % (Manual) 5.0 L (20.5-60.0) % Monocytes % (Manual) 4.0 (1.7-12.0) % Eosinophils % (Manual) 0.0 L (0.9-7.0) % Basophils % (Manual) 0.0 L (0.2-2.0) % Neutrophils # (Manual) 12.14 H (1.4-6.5) 10^3/uL Band Neutrophils # 0.4 H (0.0-0.3) 10^3/uL Lymphocytes # (Manual) 0.69 L (1.20-3.80) 10^3/uL Monocytes # (Manual) 0.55 (0.30-0.80) 10^3/uL Eosinophils # (Manual) 0.00 (0.00-0.70) 10^3/uL Basophils # (Manual) 0.00 (0.00-0.10) 10^3/uL PT 10.3 (9.0-11.6) sec INR 0.97 VBG pH 7.420 (7.330-7.430) VBG pCO2 35.7 L (40.0-52.0) mmHg Sodium 140 (136-145) mmol/L Potassium 3.9 (3.5-5.1) mmol/L Chloride 103 (98-107) mmol/L Carbon Dioxide 23.7 (21.0-32.0) mmol/L Anion Gap 17.2 BUN 17.0 (7.0-18.0) mg/dL Creatinine 1.30 H (0.55-1.02) mg/dL Est GFR ( Amer) 49 L (>=60 mL/min/1.73m^2) Est GFR (Non-Af Amer) 40 L (>=60 mL/min/1.73m^2) BUN/Creatinine Ratio 13.1 Glucose 138 H (74-106) mg/dL Lactate 2.1 H* 1.0 (0.4-2.0) mmol/L Calcium 8.7 (8.5-10.1) mg/dL Total Bilirubin 0.6 (0.2-1.0) mg/dL AST 19 (15-37) U/L ALT 18 (14-59) U/L Alkaline Phosphatase 134 H (46-116) U/L Troponin I High Sens 11.5 (4.0-51.3) pg/mL NT-Pro-B Natriuret Pep 168.0 (<=900.0) pg/mL Total Protein 7.1 (6.4-8.2) g/dL Albumin 3.2 L (3.4-5.0) g/dL Globulin 3.9 g/dL Albumin/Globulin Ratio 0.8 Lipase 20.0 (16.0-77.0) U/L Urine Color Lt. yellow (YELLOW) Urine Clarity Sl cloudy (CLEAR) Urine pH 7.0 (5.0-9.0) Ur Specific [place] 1.010 (1.005-1.025) Urine Protein 100 A (NEG/TRACE) mg/dL Urine Glucose (UA) Negative (NEGATIVE) mg/dL Urine Ketones Negative (NEGATIVE) mg/dL Urine Occult Blood Moderate A (NEGATIVE) Urine Nitrite Negative (NEGATIVE) Urine Bilirubin Negative (NEGATIVE) Urine Urobilinogen 0.2 (0.2-1.0) EU/dL Ur Leukocyte Esterase Moderate A (NEGATIVE) Urine RBC 20-50 A (0-2) #/HPF Urine WBC 20-50 A (NONE SEEN) #/HPF Ur Squamous Epith Cells Rare (NONE/RARE) #/LPF Urine Crystals None seen (None Seen) #/HPF Urine Bacteria Small A (NONE SEEN) #/HPF Urine Casts None seen (NONE SEEN) #/LPF Urine Mucus None seen (NONE SEEN) Ur Culture Indicated? [place] [place] scan - head: Attestation: I have reviewed the pertinent imaging results. ECG Data Attestation: I personally reviewed and interpreted this ECG as follows: (Sinus tachycardia at a rate of 108, no acute ST elevation. T wave inversion in lead III. No ectopy. EKG reviewed by attending physician) Discharge Plan Discharge Chief Complaint: Weakness Clinical Impression: Dizziness, Right ureteral calculus UTI (urinary tract infection) Qualifiers: Urinary tract infection type: site unspecified Hematuria presence: with hematuria Qualified Code(s): N39.0 - Urinary tract infection, site not specified Patient Disposition: Home, Self-Care Time of Disposition Decision: 00:33 Condition: Good Mode of Transportation: Private Vehicle Prescriptions / Home Meds: New cephalexin 500 mg capsule 500 mg PO TID 7 Days Qty: 21 0RF ketorolac 10 mg tablet 10 mg PO Q8H PRN (Reason: pain) 3 Days Qty: 10 0RF ondansetron HCl 4 mg tablet 4 mg PO Q6H PRN (Reason: nausea and vomiting) Qty: 10 0RF Print Language: Maltese Instructions: Urinary Tract Infection in Women (ED), Ureteral Stones (ED) Referrals: SUNI VAZQUEZ [Primary Care Provider] - 1 week Haja Vazquez MD [Physician] - As soon as possible Documented by User: Feroz Guevara MD 12/04/24 00:47 HPI HPI - General Adult General Chief complaint: Weakness Stated complaint: Dizzness Time Seen by Provider: 12/03/24 20:33 Related Data Previous Rx's ?Medication ?Instructions ?Recorded cephalexin 500 mg capsule 500 mg PO TID 7 days #21 caps 12/04/24 ketorolac 10 mg tablet 10 mg PO Q8H PRN pain 3 days #10 12/04/24 tabs ondansetron HCl 4 mg tablet 4 mg PO Q6H PRN nausea and 12/04/24 vomiting #10 tabs Allergies Allergy/AdvReac Type Severity Reaction Status Date / Time lisinopril Allergy Severe Swelling Verified 12/03/24 20:42 of Lip/Tongue/Throat Opioid HPI Opioid Management Most Recent Opioid Data: No Data to Display [facility] Social History Little interest or pleasure in doing things: not at all Feeling down, depressed, or hopeless: not at all Exam Constitutional Vital Signs, click to edit/add: Last Vital Signs Temp 98.9 F 12/03/24 20:38 Pulse 93 H 12/03/24 21:41 Resp 21 H 12/03/24 21:41 BP 132/106 H 12/03/24 20:38 Pulse Ox 95 12/03/24 20:38 O2 Del Method Room Air 12/03/24 20:38 Course Vital Signs Vital signs: Vital Signs Temperature 98.9 F 12/03/24 20:38 Pulse Rate 116 H 12/03/24 20:38 Respiratory Rate 20 12/03/24 20:38 Blood Pressure 132/106 H 12/03/24 20:38 Pulse Oximetry 95 12/03/24 20:38 Oxygen Delivery Method Room Air 12/03/24 20:38 Temperature 98.9 F 12/03/24 20:38 Pulse Rate 93 H 12/03/24 21:41 Respiratory Rate 21 H 12/03/24 21:41 Blood Pressure 132/106 H 12/03/24 20:38 Pulse Oximetry 95 12/03/24 20:38 Oxygen Delivery Method Room Air 12/03/24 20:38 Medical Decision Making MDM Narrative Medical decision making narrative: 2124: Patient medicated with IV fluids and Antivert for dizziness. She was sent for CTs of the head, chest x-ray and a CT of the abdomen and pelvis without contrast due to the right flank pain. Labs including blood cultures and lactic acid are pending. Patient has not produced a urine specimen at this time. Tachycardia has improved, case is turned over to attending physician at this time for disposition SHARED APC VISIT, PHYSICIAN ATTESTATION: [id number] I performed a substantive part of the MDM during the patient?s E/M visit. I personally evaluated and examined the patient. I personally made or approved the documented management plan and acknowledge its risk of complications. I assumed care of this patient at change of shift. She has a normal white count and her lactate was initially 2.1 and came down to below 2 the second time it was checked. Urinalysis is consistent with infection and is being cultured. CT scan of the abdomen pelvis shows incidental finding of cholelithiasis but she has to ureteral calculi on the right side, a 3 mm 1 and a 6 mm 1. Patient's pain is almost nonexistent and she has not required any pain meds. She is treated with a gram of IV Rocephin and upon discharge is placed on Toradol, Zofran and Keflex. Outpatient follow-up with urologist is advised and she is to call in the morning for appointment. She is to return anytime for worsening symptoms. Lab Data Labs: Lab Results 12/03/24 12/03/24 12/04/24 Range/Units 20:52 21:43 00:01 WBC 13.8 H (4.0-11.0) 10^3/uL RBC 4.71 (4.20-5.40) 10^6/uL Hgb 13.2 (12.0-16.0) g/dL Hct 41.0 (36.0-48.0) % MCV 87.0 (81.0-99.0) fL MCH 28.0 (26.7-34.0) pg MCHC 32.2 (29.9-35.2) g/dL RDW 13.8 (11.0-15.0) % Plt Count 313 (150-450) 10^3/uL MPV 10.4 (9.5-13.5) fL Seg Neuts % (Manual) 88.0 H (43.0-75.0) Band Neutrophils % 3.0 (0-5) % Lymphocytes % (Manual) 5.0 L (20.5-60.0) % Monocytes % (Manual) 4.0 (1.7-12.0) % Eosinophils % (Manual) 0.0 L (0.9-7.0) % Basophils % (Manual) 0.0 L (0.2-2.0) % Neutrophils # (Manual) 12.14 H (1.4-6.5) 10^3/uL Band Neutrophils # 0.4 H (0.0-0.3) 10^3/uL Lymphocytes # (Manual) 0.69 L (1.20-3.80) 10^3/uL Monocytes # (Manual) 0.55 (0.30-0.80) 10^3/uL Eosinophils # (Manual) 0.00 (0.00-0.70) 10^3/uL Basophils # (Manual) 0.00 (0.00-0.10) 10^3/uL PT 10.3 (9.0-11.6) sec INR 0.97 VBG pH 7.420 (7.330-7.430) VBG pCO2 35.7 L (40.0-52.0) mmHg Sodium 140 (136-145) mmol/L Potassium 3.9 (3.5-5.1) mmol/L Chloride 103 (98-107) mmol/L Carbon Dioxide 23.7 (21.0-32.0) mmol/L Anion Gap 17.2 BUN 17.0 (7.0-18.0) mg/dL Creatinine 1.30 H (0.55-1.02) mg/dL Est GFR ( Amer) 49 L (>=60 mL/min/1.73m^2) Est GFR (Non-Af Amer) 40 L (>=60 mL/min/1.73m^2) BUN/Creatinine Ratio 13.1 Glucose 138 H (74-106) mg/dL Lactate 2.1 H* 1.0 (0.4-2.0) mmol/L Calcium 8.7 (8.5-10.1) mg/dL Total Bilirubin 0.6 (0.2-1.0) mg/dL AST 19 (15-37) U/L ALT 18 (14-59) U/L Alkaline Phosphatase 134 H (46-116) U/L Troponin I High Sens 11.5 (4.0-51.3) pg/mL NT-Pro-B Natriuret Pep 168.0 (<=900.0) pg/mL Total Protein 7.1 (6.4-8.2) g/dL Albumin 3.2 L (3.4-5.0) g/dL Globulin 3.9 g/dL Albumin/Globulin Ratio 0.8 Lipase 20.0 (16.0-77.0) U/L Urine Color Lt. yellow (YELLOW) Urine Clarity Sl cloudy (CLEAR) Urine pH 7.0 (5.0-9.0) Ur Specific [place] 1.010 (1.005-1.025) Urine Protein 100 A (NEG/TRACE) mg/dL Urine Glucose (UA) Negative (NEGATIVE) mg/dL Urine Ketones Negative (NEGATIVE) mg/dL Urine Occult Blood Moderate A (NEGATIVE) Urine Nitrite Negative (NEGATIVE) Urine Bilirubin Negative (NEGATIVE) Urine Urobilinogen 0.2 (0.2-1.0) EU/dL Ur Leukocyte Esterase Moderate A (NEGATIVE) Urine RBC 20-50 A (0-2) #/HPF Urine WBC 20-50 A (NONE SEEN) #/HPF Ur Squamous Epith Cells Rare (NONE/RARE) #/LPF Urine Crystals None seen (None Seen) #/HPF Urine Bacteria Small A (NONE SEEN) #/HPF Urine Casts None seen (NONE SEEN) #/LPF Urine Mucus None seen (NONE SEEN) Ur Culture Indicated[place] [place] Discharge Chief Complaint: Weakness Clinical Impression: Dizziness, Right ureteral calculus UTI (urinary tract infection) Qualifiers: Urinary tract infection type: site unspecified Hematuria presence: with hematuria Qualified Code(s): N39.0 - Urinary tract infection, site not specified Patient Disposition: Home, Self-Care Time of Disposition Decision: 00:33 Condition: Good Mode of Transportation: Private Vehicle Prescriptions / Home Meds: New cephalexin 500 mg capsule 500 mg PO TID 7 Days Qty: 21 0RF ketorolac 10 mg tablet 10 mg PO Q8H PRN (Reason: pain) 3 Days Qty: 10 0RF ondansetron HCl 4 mg tablet 4 mg PO Q6H PRN (Reason: nausea and vomiting) Qty: 10 0RF Print Language: Maltese Instructions: Urinary Tract Infection in Women (ED), Ureteral Stones (ED) Referrals: SUNI VAZQUEZ [Primary Care Provider] - 1 week Haja Vazquez MD [Physician] - As soon as possible
[2024-12-03] MEDS: MECLIZINE HCL 12.5 MG TABLET 25 MG PO (21:01)
[2024-12-03] MEDS: 0.9 % SODIUM CHLORIDE 1,000 ML 999 ML IV (21:01)
[2024-12-03 21:07] LABS: PCO2 VBG 35.7 mmHg (40.0-52.0)
[2024-12-03 21:09] LABS: Hemoglobin 13.2 g/dL (12.0-16.0); Mean Corpuscular HGB Conc 32.2 g/dL (29.9-35.2); Mean Platelet Volume 10.4 fL (9.5-13.5); Platelet Count 313 10^3/uL (150-450); Red Blood Count 4.71 10^6/uL (4.20-5.40); Red Cell Distribution Width 13.8 % (11.0-15.0); White Blood Count 13.8 10^3/uL (4.0-11.0)
[2024-12-03 21:18] LABS: INR 0.97; Prothrombin Time 10.3 sec (9.0-11.6)
[2024-12-03 21:28] LABS: Band Neutrophils Absolute 0.4 10^3/uL (0.0-0.3); Lymphocytes Absolute Manual 0.69 10^3/uL (1.20-3.80); Monocytes Absolute Manual 0.55 10^3/uL (0.30-0.80); Segmented Neut Absolute Manual 12.14 10^3/uL (1.4-6.5)
[2024-12-03 21:30] LABS: Alanine Aminotransferase 18 U/L (14-59); Albumin Globulin Ratio 0.8; Albumin Level 3.2 g/dL (3.4-5.0); Alkaline Phosphatase 134 U/L (46-116); Anion Gap 17.2; Aspartate Amino Transferase 19 U/L (15-37); BUN Creatinine Ratio 13.1; Bilirubin Total 0.6 mg/dL (0.2-1.0); Calcium 8.7 mg/dL (8.5-10.1); Carbon Dioxide 23.7 mmol/L (21.0-32.0); Chloride 103 mmol/L (98-107); Estimated GFR (African America 49 (>=60 mL/min/1.73m^2); Estimated GFR (Non-African Ame 40 (>=60 mL/min/1.73m^2); Globulin 3.9 g/dL; Glucose 138 mg/dL (74-106); Potassium 3.9 mmol/L (3.5-5.1); Sodium 140 mmol/L (136-145); Total Protein 7.1 g/dL (6.4-8.2); Troponin I High Sensitivity 11.5 pg/mL (4.0-51.3)
[2024-12-03 21:31] LABS: Lactate/Lactic Acid 2.1 mmol/L (0.4-2.0)
[2024-12-03 21:50] LABS: Bilirubin Urine NEGATIVE (NEGATIVE); Blood Urine MODERATE (NEGATIVE); Clarity Urine SL CLOUDY (CLEAR); Color Urine LT. YELLOW (YELLOW); Glucose Urine UA NEGATIVE (NEGATIVE); Ketones Urine NEGATIVE (NEGATIVE); Leukocyte Esterase Urine MODERATE (NEGATIVE); Nitrite Urine NEGATIVE (NEGATIVE); Protein Urine 100 mg/dL (NEG/TRACE); Urobilinogen Urine 0.2 EU/dL (0.2-1.0)
[2024-12-03 21:56] LABS: Bacteria Urine SMALL #/HPF (NONE SEEN); Cast Seen? NONE SEEN #/LPF (NONE SEEN); Crystals Seen? None Seen #/HPF (None Seen); Mucus Urine NONE SEEN (NONE SEEN); RBC Urine 20-50 #/HPF (0-2); Squamous Epithelial Cell Urine RARE #/LPF (NONE/RARE); Urine Culture Indicated YES-FRMC; WBC Urine 20-50 #/HPF (NONE SEEN)
[2024-12-03] MEDS: CEFTRIAXONE 1,000 MG in 0.9 % SODIUM CHLORIDE 50 ML 100 MG IV (22:58)
[2024-12-04 00:54] VITALS: BP 147/91; PULSE 86; O2SAT 94
[2024-12-04 12:37] LABS: A. calcoaceticus-baumannii Cpx NOT DETECTED (NOT DETECTE); Bacteroides fragilis NOT DETECTED (NOT DETECTE); Candida albicans NOT DETECTED (NOT DETECTE); Candida auris NOT DETECTED (NOT DETECTE); Candida glabrata NOT DETECTED (NOT DETECTE); Candida krusei NOT DETECTED (NOT DETECTE); Candida parapsilosis NOT DETECTED (NOT DETECTE); Candida tropicalis NOT DETECTED (NOT DETECTE); Cryptococcus neoformans/gattii NOT DETECTED (NOT DETECTE); Enterobacter cloacae complex NOT DETECTED (NOT DETECTE); Enterococcus faecalis NOT DETECTED (NOT DETECTE); Enterococcus faecium NOT DETECTED (NOT DETECTE); Haemophilus influenzae NOT DETECTED (NOT DETECTE); Klebsiella aerogenes NOT DETECTED (NOT DETECTE); Klebsiella pneumoniae group NOT DETECTED (NOT DETECTE); Listeria monocytogenes NOT DETECTED (NOT DETECTE); Neisseria meningitidis NOT DETECTED (NOT DETECTE); Proteus spp. NOT DETECTED (NOT DETECTE); Pseudomonas aeruginosa NOT DETECTED (NOT DETECTE); Salmonella spp. NOT DETECTED (NOT DETECTE); Serratia marcescens NOT DETECTED (NOT DETECTE); Staphylococcus epidermidis NOT DETECTED (NOT DETECTE); Staphylococcus lugdunensis NOT DETECTED (NOT DETECTE); Staphylococcus spp. NOT DETECTED (NOT DETECTE); Stenotrophomonas maltophilia NOT DETECTED (NOT DETECTE); Streptococcus agalactiae NOT DETECTED (NOT DETECTE); Streptococcus pneumoniae NOT DETECTED (NOT DETECTE); Streptococcus pyogenes NOT DETECTED (NOT DETECTE); Streptococcus spp. NOT DETECTED (NOT DETECTE)
[2024-12-04 14:18] LABS: CTX-M NOT DETECTED (NOT DETECTE); IMP NOT DETECTED (NOT DETECTE); KPC NOT DETECTED (NOT DETECTE); NDM NOT DETECTED (NOT DETECTE); OXA-48-like NOT DETECTED (NOT DETECTE); Source Blood; VIM NOT DETECTED (NOT DETECTE); mcr-1 NOT DETECTED (NOT DETECTE)
[2024-12-04 14:21] LABS: Enterobacterales DETECTED (NOT DETECTE)
== END 2024-12-04 00:56 | disposition home or self-care (01) ==
PROVIDERS: Physician Assistant; Emergency Provider Emergency Medicine; PCP Family Medicine
DX: R42 Dizziness and giddiness (principal); N13.6 Pyonephrosis; I10 Essential (primary) hypertension; E78.5 Hyperlipidemia, unspecified; M06.9 Rheumatoid arthritis, unspecified; F41.9 Anxiety disorder, unspecified; R53.1 Weakness; R10.9 Unspecified abdominal pain; Z87.442 Personal history of urinary calculi; R06.02 Shortness of breath
CPT/HCPCS: 36415; 70450; 71045; 74176; 80053; 81001; 82800; 83605; 83690; 83880; 84484; 85007; 85027; 85610; 87040; 87086; 87150; 87186; 93005; 96361; 96365; 99285; J0696

== ENCOUNTER 2025-01-01 13:39 | Outpatient (OUT) | payer MEDICARE, SELFPAY ==
--- NOTE | 2025-01-01 | CT_ITS ---
The [address] [address] Patient Name: AVERY GOMEZ MRN: [id number] date: 1950 Sex: F Assigned Patient Location: CT Current Patient Location: CT Accession/Order Number: [id number] Exam Date: 01/01/2025 14:24 Report Date: 01/01/2025 14:29 At the request of: GRIFFIN FRITZ MD Procedure: CT abdomen pelvis wo con CT ABDOMEN AND PELVIS WITHOUT INTRAVENOUS CONTRAST: CLINICAL HISTORY: N20.0 KIDNEY STONES COMPARISON: CT abdomen and pelvis 12/03/2024 TECHNIQUE: Spiral images were obtained through the abdomen and pelvis without intravenous contrast. This CT exam was performed using one or more following dose reduction techniques: Automated exposure control, adjustment of the mA and/or kV according to patient size, or use of iterative reconstruction technique. FINDINGS: Lung Bases: [Bibasilar atelectasis] Organs:Suboptimal evaluation due to lack of IV contrast.[Cholelithiasis. Liver spleen pancreas and adrenal glands appear unremarkable. Punctate bilateral nephrolithiasis. No obstructive uropathy. Abdominal aorta appears normal in caliber. GI: Stomach is grossly unremarkable. Small bowel appears nondilated. Appendix is normal. No acute colonic abnormality. Sigmoid diverticulosis.[ Pelvis:[Urinary bladder is grossly unremarkable. Uterus is atrophic. No adnexal mass.] Peritoneum/Retroperitoneum:No free air or free fluid or lymphadenopathy.[ Abd wall/Bones:Abdominal wall demonstrates no acute findings. Osseous structures demonstrate degenerative change.[ CT/CT abdomen pelvis wo con IMPRESSION: Punctate bilateral nephrolithiasis. The previously identified right ureteral calculi appear to have passed. No obstructive uropathy seen on today's study. Cholelithiasis. Sigmoid diverticulosis. Impression dictated by: Keron Anderson Jr., D.O. 01/01/2025 2:29 PM Dictation Location: [place] [address] Electronically authenticated by: [id number] Y Date: 01/01/2025 14:29
== END 2025-01-01 13:40 | disposition home or self-care (01) ==
LOC: CT 13:39
PROVIDERS: PCP Family Medicine; Visit Provider Urology
DX: N20.0 Calculus of kidney (principal); K80.20 Calculus of gallbladder without cholecystitis without obstruction; K57.90 Diverticulosis of intestine, part unspecified, without perforation or abscess without bleeding
CPT/HCPCS: 74176

== ENCOUNTER 2025-01-24 15:28 | Outpatient (OUT) | payer MEDICARE, SELFPAY ==
--- OUTSIDE RECORDS SUMMARY | 2024-12-31 13:30 | XMS_ITS ---
Author Name Auto Generated Organization OHIP Care Team Providers Care Bottle Feeder Name Role Phone ELPIDIO WEST Attending Unavailable ELPIDIO WEST Referring Unavailable ELPIDIO WEST Primary Care Unavailable ELPIDIO WEST Referring Unavailable ELPIDIO WEST Primary Care Unavailable ANDRES VAZQUEZ Attending Unavailable ANDRES VAZQUEZ Primary Care Unavailable ANDRES VAZQUEZ Referring Unavailable ANDRES VAZQUEZ G Primary Care Unavailable Sachalong, Andres Primary Care Unavailable Haja Fritz Attending Unavailable Haja Fritz Admitting Unavailable Shobha Pritchett Attending Unavailable Shobha Pritchett Admitting Unavailable Dax Coello Attending Unavailable Dax Coello Admitting Unavailable NON STAFF Primary Care Unavailable Rosa Maria Tobin Attending Unavailable LAM, Haja P Attending Unavailable LAM, Haja P Attending Unavailable LAM, Haja P Attending Unavailable COOK, Haja P Admitting Unavailable COOK, Haja P Attending Unavailable COOK, Haja P Admitting Unavailable COOK, Haja P Attending Unavailable COOK, Haja P Attending Unavailable PROBLEMS DATE TYPE CONDITION / CODE ATTENDING STATUS [facility] RCE 12/10/2024 Unknown Hydronephrosis w ith renal and ureteral calculous obstruction / N13.2(ICD-10) Haja Fritz [facility] 10/03/2024 Unknown Unspecified equities analyst pam gastritis without bleeding / K29.50(ICD-10) [facility]24 Unknown Anxiety disorder , unspecified / F41.9(ICD-10) [facility] 07/06/2022 Unknown Hypertensive chr onic kidney disease with stage 1 through stage 4 chronic kidney disease, or unspecified chronic kidney disease / I12.9(ICD-10) [facility] 07/06/2022 Unknown Chronic kidney d isease, stage 2 (mild) / N18.2(ICD-10) [facility] 07/06/2022 Unknown Impaired fasting glucose / R73.01(ICD-10) [facility] 10/03/2024 Unknown Hypothyroidism / FREETEXT(AOF) [facility] 10/03/2024 Unknown Hypertension / FREETEXT(AOF) [facility] 09/18/2024 Unknown Rheumatoid arthr itis, unspecified / M06.9(ICD-10) Dax Coello [facility] 09/17/2024 Unknown MAW / UNK(Unknown) NA [facility] 07/06/2022 Unknown Mixed hyperlipid emia / E78.2(ICD-10) ELPIDIO WEST [facility] 07/06/2022 Unknown Essential (prima ry) hypertension / I10(ICD-10) ELPIDIO WEST [facility] 02/01/2024 Unknown Panic disorder (episodic paroxysmal anxiety) / F41.0(ICD-10) ELPIDIO WEST [facility] 02/01/2024 Unknown Other specified anxiety disorders / F41.8(ICD-10) ELPIDIO WEST [facility] 02/01/2024 Unknown Follow-up / FREETEXT(AOF) ELPIDIO WEST [facility] PROCEDURES No Procedure Records Found RESULTS PATIENT EDUCATION Observed: 12/31/2024 1:52 PM Status: F Source: [facility] Patient Education Urology 24-Hour Urine Collection Why am I having this test? A 24-hour urine specimen is a lab test that requires you to collect all of your urine for an entire day. This is sometimes called a timed urine test. It can provide more information than a single urine sample. There are many reasons to have this test. Your health care provider may order the test to check for or monitor the following conditions: ??? High blood pressure. ??? Kidney disease. ??? Kidney stones. ??? Urinary tract infections. ??? . ??? Diabetes. How do I prepare for this test? You may be asked to follow a special diet during or before the collection period. Follow any instructions from your health care provider. If no special instructions are given, you may eat and drink normally. ??? Take jrof-jan-fzcpeyo and prescription medicines only as told by your health care provider. ??? Let your health care provider know about any medicines that you are taking, including dctm-eoy-ujfguyy medicines, vitamins, herbs, and supplements. ??? Choose a collection day when you can be at home or when you have a place to store the urine. All urine must be collected during the testing period. How do I do a 24-hour urine collection? When you get up in the morning, urinate in the toilet and flush. Write down the time. This will be your start time on the day of collection and your end time on the next morning. ??? From the start time on, all of your urine should be kept in the collection jug that you received from the lab. ??? If the jug that is given to you already has liquid in it, that is okay. Do not throw out the liquid or rinse out the jug. ??? Urinate into a specimen container, such as a urinal or rasmussen that sits over the toilet. Pour the urine from the container into the collection jug. Be careful not to spill any of the urine. Use the equipment provided by the lab. ??? Do not let any toilet paper or stool (feces) get into the jug. This will contaminate the sample. ??? Stop collecting your urine 24 hours after you started. Collect the last specimen as close as possible to the end of the 24-hour period. ??? Keep the jug cool in an ice chest or keep it in the refrigerator during collection. ??? When the 24-hour collection is complete, take the jug to the lab as soon as possible. Keep the jug cool in an ice chest while you are bringing it to the lab. What do the results mean? Talk with your health care provider about what your results mean. Questions to ask your health care provider Ask your health care provider, or the department that is doing the test: ??? When will my results be ready? How will I get my results? What are my treatment options? What other tests do I need? What are my next steps? Summary ??? A 24-hour urine specimen is a lab test that requires you to collect all of your urine for an entire day. ??? When you get up in the morning, urinate in the toilet and flush. Write down the time. For the next 24 hours, collect all of your urine in the collection jug that you received from the lab. ??? Keep the jug cool while collecting the urine and while bringing it back to the lab. ??? Take the jug of urine back to the lab as soon as possible after the collection period has ended. This information is not intended to replace advice given to you by your health care provider. Make sure you discuss any questions you have with your health care provider. Document Revised: 02/25/2022 Document Reviewed: 02/25/2022 [employer] Patient Education ? 2023 [employer] AMBULATORY VISIT SUMMARY Observed: 12/31 1:08 PM Status: F Source: [facility] Ambulatory Visit Summary LISA GOMEZ :1950 Visit Date:12/31/2024 Ambulatory Visit Instructions Your Diagnosis Ureteral stone with hydronephrosis Kidney stones Your Care Team Attending Physician - Haja FRITZ MD Primary Care Physician - ANDRES VAZQUEZ DO This Is Your Medications List Contact prescribing physician if questions or concerns amlodipine aspirin (Rabia Childrens Aspirin 81 mg oral tablet, chewable) cephalexin (cephalexin 500 mg Cap) fluoxetine (FLUoxetine 20 mg Cap) predniSONE (predniSONE 5 mg oral delayed release tablet) rosuvastatin (rosuvastatin 20 mg oral capsule) tamsulosin (tamsulosin 0.4 mg Cap) Procedures Performed Colonoscopy, Lithotripsy using laser, Removal of mole of skin by excision. Discharge Vitals Temperature (Temporal Artery) 36.0 ???C Heart Rate (Peripheral) 85 Blood Pressure 136/100 Height 155 cm Height 61 in Weight 93.6 kg Weight 206.352 lb BMI 38.96 What to do next Scheduled Follow-Up Appointments Monday 2:30 PM EDT With: Haja FRITZ MD Where: [facility] [address] [place] [address]- You Need to Schedule the Following Appointments Follow Up with Haja FRITZ MD, URL When: Where: [address] [place] [address] [place] [address]- Medications What How Much When Instructions Unchanged amlodipine By Mouth Contact prescribing physician if questions or concerns Unchanged aspirin (Rabia Childrens Aspirin 81 mg oral tablet, chewable) By Mouth Contact prescribing physician if questions or concerns Unchanged cephalexin (cephalexin 500 mg Cap) By Mouth Contact prescribing physician if questions or concerns Unchanged fluoxetine (FLUoxetine 20 mg Cap) By Mouth Contact prescribing physician if questions or concerns Unchanged predniSONE (predniSONE 5 mg oral delayed release tablet) By Mouth Contact prescribing physician if questions or concerns Unchanged rosuvastatin (rosuvastatin 20 mg oral capsule) By Mouth Contact prescribing physician if questions or concerns Unchanged tamsulosin (tamsulosin 0.4 mg Cap) 1 Capsules By Mouth Every day for stone event Contact prescribing physician if questions or concerns Allergies lisinopril (Lip swelling., Unknown) Problems Ongoing - Any problem that you are currently receiving treatment for. Basal cell carcinoma of skin (skin cancer) Kidney stones Ureteral stone with hydronephrosis Patient Survey You may receive a survey via text or e-mail asking about your office visit. Please share your experience with us by completing your survey. We appreciate your feedback and thank you for choosing us for your care. Education Materials 24-Hour Urine Collection Why am I having this test? A 24-hour urine specimen is a lab test that requires you to collect all of your urine for an entire day. This is sometimes called a timed urine test. It can provide more information than a single urine sample. There are many reasons to have this test. Your health care provider may order the test to check for or monitor the following conditions: ??? High blood pressure. ??? Kidney disease. ??? Kidney stones. ??? Urinary tract infections. ??? . ??? Diabetes. How do I prepare for this test? You may be asked to follow a special diet during or before the collection period. Follow any instructions from your health care provider. If no special instructions are given, you may eat and drink normally. ??? Take ghqw-bzl-unpkaux and prescription medicines only as told by your health care provider. ??? Let your health care provider know about any medicines that you are taking, including bsdu-qye-lkeoavk medicines, vitamins, herbs, and supplements. ??? Choose a collection day when you can be at home or when you have a place to store the urine. All urine must be collected during the testing period. How do I do a 24-hour urine collection? When you get up in the morning, urinate in the toilet and flush. Write down the time. This will be your start time on the day of collection and your end time on the next morning. ??? From the start time on, all of your urine should be kept in the collection jug that you received from the lab. ??? If the jug that is given to you already has liquid in it, that is okay. Do not throw out the liquid or rinse out the jug. ??? Urinate into a specimen container, such as a urinal or rasmussen that sits over the toilet. Pour the urine from the container into the collection jug. Be careful not to spill any of the urine. Use the equipment provided by the lab. ??? Do not let any toilet paper or stool (feces) get into the jug. This will contaminate the sample. ??? Stop collecting your urine 24 hours after you started. Collect the last specimen as close as possible to the end of the 24-hour period. ??? Keep the jug cool in an ice chest or keep it in the refrigerator during collection. ??? When the 24-hour collection is complete, take the jug to the lab as soon as possible. Keep the jug cool in an ice chest while you are bringing it to the lab. What do the results mean? Talk with your health care provider about what your results mean. Questions to ask your health care provider Ask your health care provider, or the department that is doing the test: ??? When will my results be ready? How will I get my results? What are my treatment options? What other tests do I need? What are my next steps? Summary ??? A 24-hour urine specimen is a lab test that requires you to collect all of your urine for an entire day. ??? When you get up in the morning, urinate in the toilet and flush. Write down the time. For the next 24 hours, collect all of your urine in the collection jug that you received from the lab. ??? Keep the jug cool while collecting the urine and while bringing it back to the lab. ??? Take the jug of urine back to the lab as soon as possible after the collection period has ended. This information is not intended to replace advice given to you by your health care provider. Make sure you discuss any questions you have with your health care provider. Document Revised: 02/25/2022 Document Reviewed: 02/25/2022 [employer] Patient Education ??? 2023 [employer] UROLOGY OFFICE/CLINIC NOTE Observed: 1:08 PM Status: F Source: [facility] Urology Office/Clinic Note Chief Complaint f/u cysto retrograde HPI Staff 74 year old female presents for f/u cysto/retrograde. Prev dx: ureteral stone w/hydronephrosis, kidney stones s/p cysto/retrograde/stent placement 12/10/24, stent removal 12/13/24. *tamsulosin 0.4mg Pain started on right side/flank 12/15/24. Pt had KUB done IO 12/23/24. Pt states still experiencing right sided flank pain. pt denies any other urinary issues today. pt not taking tamsulosin pt states that she was unaware that she was supposed to start taking. pt to have CT done tomorrow at [place]. History of Present Illness Tests reviewed: UA, op note, KUB, stone analysis I have reviewed the previous health record information and history for this patient from Dr. Fritz. I have reviewed and verified the staff HPI to be accurate for this encounter. Review of Systems PHQ Score Initial Depression Screen Score: 0 SCORE ROS - Provider Constitutional: denies weight loss, denies hot flashes. Eyes: denies eye problems. Gastrointestinal: denies nausea, denies vomiting. Cardiovascular: denies chest pain or angina. Integumentary: no dryness Musculoskeletal: denies musculoskeletal symptoms. ENMT: denies otolaryngeal symptoms. Respiratory: no shortness of breath. Heme/Lymph: denies easy bleeding tendency, denies easy bruising tendency. Psychiatric: no confusion, no anxiety. Genitourinary: See HPI. Physical Exam Vitals & Measurements T: 36.0 ???C(Temporal Artery) HR: 85(Peripheral) BP: 136/100 HT: 155 cm HT: 61 in WT: 93.6 kg WT: 206.352 lb BMI: 38.96 General Appearance: alert, no distress, well nourished, well developed female. Assessment/Plan 1. Ureteral stone with hydronephrosis (N13.2: Hydronephrosis with renal and ureteral calculous obstruction) CT AP wo con 12/03/24 [facility] - Mild R hydro secondary to a 3 mm and a 6 mm stone in the distal R ureter. No L hydro. KUB 12/10/24 [facility] - Report pending. Personal review: stable ureteral stones. S/p cysto, R rgp, urs, laser litho, basket, string stent placement 12/10/24. Stone analysis - CaOx mono, 20% CaOx di. KUB 12/23/24 [facility] - Neg. UA neg. Removed string stent Monday after procedure. Develop R flank pain a couple days later, was certain she was passing a stone but KUB was neg. Per exam today, her pain is not over her kidney, it is musculoskeletal. Slight pain with movement, again this indicates musculoskeletal. Pt already has CT scheduled tomorrow at [facility], will have pt proceed with CT to definitively show if stone is passing or not. Discussed metabolic workup including 24 hour urine and blood work for stone prevention. Follow up 3 mos with metabolic workup or sooner if needed. Pt understands and agrees with plan. -Proceed with CT at [facility] tomorrow (recall placed) 2. Kidney stones (N20.0: Calculus of kidney) Distant hx of renal stones require laser litho by Dr Abraham. CT AP wo con 12/03/24 [facility] - A few nonobstructing subcentimeter BL renal stones. KUB 12/23/24 [facility] - Neg. Renal stones noted per prior CT likely too small to be visualized by KUB. Overall the patient had the laser lithotripsy and extraction of 2 right distal ureteral calculi and subsequently pulled the string stent out on her own. She then developed right-sided flank pain couple days after that. She had seen Shannon recently who ordered the CT scan of the abdomen and pelvis, which is scheduled for tomorrow. Physical examination and reviewing her history seems to point more towards a musculoskeletal etiology of her right flank pain but we will see what the CT scan shows. We then had a discussion about the metabolic workup and she wants to proceed. Ordered blood work, ordered 24-hour urine, ordered KUB prior to visit in 6 months. Should call to get the results of both the CT scan and the metabolic workup results once completed. Follow-up With When Contact Information LAM JUAREZ, Haja Tate, URL [address] [address]- Additional Instructions: 3 mos with metabolic workup Patient Education 24-Hour Urine Collection IKrissy, personally scribed for Dr. Fritz on 12/31/2024 13:55:16. . Documentation recorded by the scribe, Krissy Ceron, accurately reflects the services(s) I performed and decisions made by me. Authenticated by Dr. Fritz on 12/31/2024 13:58:47. Portions of this record may have been created with voice recognition artificial intelligence software, specifically [email or web address], [employer] and or [employer]. Substitutions may have occurred due to the inherent limitations of voice recognition and artificial intelligence software. Problem List/Past Medical History Ongoing Basal cell carcinoma of skin (skin cancer) Kidney stones Ureteral stone with hydronephrosis Historical No qualifying data Procedure/Surgical History Colonoscopy, Lithotripsy using laser, Removal of mole of skin by excision. Medications amlodipine, Oral Rabia Childrens Aspirin 81 mg oral tablet, chewable, Oral cephalexin 500 mg Cap, Oral, Not taking FLUoxetine 20 mg Cap, Oral predniSONE 5 mg oral delayed release tablet, Oral rosuvastatin 20 mg oral capsule, Oral tamsulosin 0.4 mg Cap, 0.4 mg= 1 cap(s), Oral, Daily, 1 refills, Not taking Allergies lisinopril (Lip swelling., Unknown) Social History Alcohol Current. Beer, Wine. 1-2 times per month., 12/06/2024 Substance Abuse Never., 12/06/2024 Tobacco Never (less than 100 in lifetime) Tobacco Use:. Never Smokeless Tobacco Use:. Household tobacco concerns: No., 12/31/2024 Family History Arthritis: Mother. Heart disease: Mother and Father. High cholesterol: Mother and Father. Hypertension: Mother and Father. Kidney stone: Grandparent. Migraine: Grandparent. Stroke: Father. Immunizations Vaccine Date Status SARS-CoV-2 (COVID-19) [id number] 07/21/2022 Recorded SARS-CoV-2 (COVID-19) mRNA-1273 vaccine 07/19/2021 Recorded influenza virus vaccine, inactivated 06/29/2021 Recorded SARS-CoV-2 (COVID-19) mRNA-1273 vaccine 11/25/2020 Recorded SARS-CoV-2 (COVID-19) mRNA BNT-162b2 vax 11/03/2020 Recorded SARS-CoV-2 (COVID-19) mRNA-1273 vaccine 10/29/2020 Recorded influenza virus vaccine, inactivated 06/02/2020 Recorded pneumococcal 23-valent vaccine 07/18/2018 Recorded influenza virus vaccine, inactivated 07/18/2018 Recorded pneumococcal 13-valent vaccine 02/13/2017 Recorded Td(adult) unspecified formulation 01/23/2013 Recorded measles/mumps/rubella virus vaccine 05[birth year]05/1956 Given Lab Results Ambulatory Point of Care Results Bilirubin Urine Dipstick: Negative (12/31/24 13:15:00) Blood Urine Dipstick: Negative (12/31/24 13:15:00) Glucose Urine Dipstick: Negative (12/31/24 13:15:00) Ketones Urine Dipstick: Negative (12/31/24 13:15:00) Leukocytes Urine Dipstick: Negative (12/31/24 13:15:00) Nitrite Urine Dipstick: Negative (12/31/24 13:15:00) Protein Urine Dipstick: Negative (12/31/24 13:15:00) Specific [place] Urine Dipstick: 1.020 (12/31/24 13:15:00) Urine Appearance Urine Dipstick: Clear (12/31/24 13:15:00) Urine Color Urine Dipstick: Yellow (12/31/24 13:15:00) Urobilinogen Urine Dipstick: Normal 0.2-1 EU/dl (12/31/24 13:15:00) pH Urine Dipstick: 6 (12/31/24 13:15:00) Result Comment: Electronical ly Signed By: Haja FRITZ MD\.br\Date and Time Signed: 12/31/24 13:59 EDT\.br\Electronically Co-Signed By: Krissy Ceron\.br\Date and Time Co-Signed: 12/31/24 13:55 EDT XR ABDOMEN 1 VIEW Observed: 12/23/2024 2:14 PM Status: F Source: [facility] Exam Date/Time: 12/23/2024 14:15 EDT Reason for Exam: Kidney stone Report IMPRESSION: NO URINARY TRACT CALCULI IDENTIFIED BY RADIOGRAPHY. EXAMINATION: XR Abdomen 1 View HISTORY: Kidney stone TECHNIQUE: Frontal view of the abdomen and pelvis COMPARISON: 12/10/2024 FINDINGS: No calcifications identified over the bilateral renal shadows or expected course of the ureters. Previously seen distal right ureteral calculi are no longer identified. Pelvic phleboliths are again identified. Nonobstructive bowel gas pattern. No evidence of free air. Gallstones noted. No acute osseous abnormality. Ordering Provider: Haja FRITZ FINAL REPORT Dictated: 12/24/2024 4:27 pm Sina Chris DO Signed (Electronic Signature): 12/24/2024 4:27 pm Signed by: Sina Chris DO Transcribed by: JUN Technologist: AKASH MEANS KUB Observed: 12/10/2024 4:27 PM Status: COMPLETED Source: [place] [address] XRay Report Signed Patient: Lisa Gomez MR#: [id number] 5 : 1950 Acct:[id number] Age/Sex: 74 / F ADM Date: 12/10/24 Loc: [place] Room: Type: [facility] Attending Dr: Haja Fritz MD Copies to: Haja Fritz MD Ordering Provider: Haja Fritz MD Date of Service: 12/10/24 XR/XR KUB: STENT PLACEMENT Fluoroscopic assessment for right stent placement and stone removal 7 images obtained. Cumulative Air Kerma in mGy: 21 mGy. Wire present in the right ureter. Wire guidance of stent performed. Stent placed. XR/XR KUB IMPRESSION: Right ureteral stent placement Impression dictated by: Luis Eduardo Oates M.D.12/10/2024 4:29 PM Dictation Location: [place] [address] Transcribed By: [facility] 12/10/24 1629 Dictated By: Luis Edaurdo Oates DO 12/10/24 1627 Signed By: <Electronically signed by Luis Eduardo Oates DO in OV> 12/10/24 1629 L Observed: 12/10/2024 2:29 PM Status: F Source: [facility] ----- ------- Specimen: Received: 12/10/24 Status: TRE Aggarwalmary Num: [id number] Spec Type: Surgical Subm Dr: Haja Fritz MD Tissues: A Gross Only (R URETERAL STONES) Procedures: Level 1 Gross ----- ------- Age/ Patient Sex Location Account Attending Physician ----- ------- Lisa Gomez 74/F [place] [id number] Haja Fritz MD ----- ------- SPEC NUM: RECD: 12/10/24 STATUS: TRE AGGARWALMary NUM: [id number] ALIS: 12/10/[address] [facility] DR: Haja Fritz MD ENTERED: 12/10/[address] [facility] [address]: SPEC TYPE: Surgical DEPT: S ENTERED BY: [id number] RECV BY: [id number] ORDERED: Level 1 Gross ORDERED: Level 1 Gross Pathological Diagnosis Right ureteral stones, basket evacuation: -Multiple aguilar-brown granular calculi (8). Gross only examination. Pending additional chemical analysis in reference laboratory to follow Clinical Information R kidney stone Gross Description Part A is received in formalin labeled with the patients name, date of , and R ureteral stones are 8 aguilar-brown, granular calculi, ranging from 0.1 to 0.4 cm in greatest dimension. The specimen is sent to [facility] for chemical analysis. GROSS ONLY- Microscopic Description Not provided ----- ------- Specimen: Received: 12/10/24 Status: TRE Mt Num: [id number] Spec Type: Surgical Subm Dr: Haja Fritz MD Tissues: A Gross Only (R URETERAL STONES) Procedures: Level 1 Gross ----- ------- Patient: Lisa Gomez [id number] (Continued) ----- ------- Specimen: Received: 12/10/24 (Continued) Signed (signature on file) Jesse Gibbons MD 12/13/24 1616 ----- ------- Specimen: Received: 12/10/24 Status: TRE Amor Num: [id number] Spec Type: Surgical Subm Dr: Haja Fritz MD Tissues: A Gross Only (R URETERAL STONES) Procedures: Level 1 Gross ----- ------- Patient: Lisa Gomez [id number] (Continued) ----- ------- Specimen: Received: 12/10/24 (Continued) CPT Codes 65789 ----- ------- ----- ------- Specimen: [id number] Received: 12/10/24 Status: TRE Amor Num: [id number] Spec Type: Surgical Subm Dr: Haja Fritz MD Tissues: A Gross Only (R URETERAL STONES) Procedures: Level 1 Gross ----- ------- Patient: Lisa Gomez Gail [id number] (Continued) ----- ------- Signed (signature on file) Jesse Gibbons MD 12/13/24 1616 COMPLETE BLOOD COUNT AUTO DIFF Collected: 12/10/2024 1:05 PM Status: F Source: [facility] TYPE CODE TESTS RESULT OUT OF RANGE REFERENCE UNITS LAB WBC White Blood Count 6.7 Normal 3.8-11.6 10*3/uL LAB UNWBC Uncorrected WBC 6.7 Normal 3.8-11.6 10*3/uL LAB RBC Red Blood Count 4.76 Normal 3.60-5.00 10*6/u L LAB HGB Hemoglobin 13.3 Normal 11.8-15.4 g/dL LAB HCT Hematocrit 40.4 Normal 34.0-46.4 % LAB MCV Mean Corpuscular Volume 84.9 Normal 80-100 fL LAB MCH Mean Corpuscular Hemoglobin 28.0 Normal 24.7-34.3 pg LAB MCHC Mean Corpuscular HGB Conc 33.0 Normal 32.0-35.0 g/dL LAB RDW Red Cell Distribution Width 14.5 Normal 11.9-15.3 % LAB PLT Platelet Count 353 Normal 150-450 10*3/uL LAB MPV Mean Platelet Volume 8.1 Normal 6.3-10.7 fL LAB NE% Neutrophils % (Auto) 81.0 . % LAB LY% Lymphocytes % (Auto) 12.4 . % LAB MO% Monocytes % (Auto) 5.7 . % LAB EO% Eosinophils % (Auto) 0.3 . % LAB BA% Basophils % (Auto) 0.6 . % LAB NRBC% NRBC% 0.1 Normal 0-0.5 /100{WBC} LAB NE# Neutrophils # (Auto) 5.4 Normal 1.8-7.7 10*3/uL LAB LY# Lymphocytes # (Auto) 0.8 Low 1.00-4.8 10*3/uL LAB MO# Monocytes # (Auto) 0.4 Normal 0.0-0.8 10*3/uL LAB EO# Eosinophils # (Auto) 0.0 Normal 0.0-0.45 10*3/uL LAB BA# Basophils # (Auto) 0.0 Normal 0.0-0.2 10*3/uL Result Comment: PERFORMED BY : [place] [address] PATHOLOGIST COLOR STRAINER HASMUKH COLMENARES M.D. Performed By: #### CBC, BMP #### [address] BASIC METABOLIC PANEL Collected: 12/10/2024 1:05 PM Status: F Source: [facility] TYPE CODE TESTS RESULT OUT OF RANGE REFERENCE UNITS LAB GLU Glucose 122 High 70-100 mg/dL Result Comment: Random Gluco se Reference Range is dependent on time and content of last meal. Glucose of more than 200 mg/dL in a nonstressed, ambulatory subject supports the diagnosis of Diabetes Mellitus. ADA recommended reference range LAB BUN Blood Urea Nitrogen 22 Normal 7-25 mg/dL LAB CREATT Creatinine 1.15 Normal 0.60-1.20 mg/dL LAB GFReNR Estimated GFR 50.301 mL/Min LAB NA Sodium 139 Normal 136-145 mmol/L LAB K Potassium 3.9 Normal 3.5-5.1 mmol/L LAB CL Chloride 106 Normal 98-107 mmol/L LAB CO2 Carbon Dioxide 23.6 Normal 21.0-31.0 mmol/L LAB GAP Anion Gap 13.3 Normal 6.0-15.0 meq/L LAB CA Calcium 8.8 Normal 8.6-10.3 mg/dL LAB CRCLPHA Creatinine Clr Calc Pharmacy 44.48 Result Comment: PERFORMED BY : [place] [address] PATHOLOGIST COLOR STRAINER HASMUKH COLMENARES M.D. Performed By: #### CBC, BMP #### [facility] [address] [place] [address] [facility] PROTHROMBIN TIME INR Collected: 12/10/2024 1:05 PM S tatus: F Source: [facility] TYPE CODE TESTS RESULT OUT OF RANGE REFERENCE UNITS LAB R PT Prothrombin Time 11.1 Normal 9.0-12.9 s Result Comment: A hematocrit value greater than 55% may lead to inaccurate results in coagulation testing. Patients having hematocrit values >55% require a special collection tube for coagulation studies. Please contact the laboratory at [phone] for redraw instructions. LAB INR INR 1.0 Result Comment: INR Therapeu tic Range A) Pre- and Peroperative OAT started two weeks before surgery. NOT HIP SURGERY: 1.5 - 2.5 HIP SURGERY: 2 - 3 B) Primary and secondary prevention of venous THROMBOSIS: 2 - 3 C) Active venous thrombosis, pulmonary embolism and prevention of recurrent venous thrombosis: 2 - 3 D) Prevention of arterial thromboembolism including patients with mechanical heart valves: 3 - 4.5 PERFORMED BY: [address] [address] PATHOLOGIST COLOR STRAINER HASMUKH COLMENARES M.D. Performed By: #### PT #### [facility] [address] [place] [id number] [facility] ECG 12 LEAD ECG Observed: 12/10/2024 12:45 PM Status: COMPLETED Source: [facility] [place] [address] [place] [id number] Electrocardiograph Report Signed Patient: Lisa Gomez MR#: [id number] 5 : 1950 Acct:[id number] Age/Sex: 74 / F ADM Date: 12/10/24 Loc: [place] Room: Type: [facility] Attending Dr: Haja Fritz MD Ordering Provider: Haja Fritz MD Date of Service: 12/10/2404/28/1229 ECG/ECG 12 lead ECG: Pre Op Copies to: Test Reason : Blood Pressure : */* mmHG Vent. Rate : 85 BPM Atrial Rate : 85 BPM P-R Int : 128 ms QRS Dur : 72 ms QT Int : 372 ms P-R-T Axes : 14 -20 -6 degrees QTcB Int : 442 ms Normal sinus rhythm Moderate voltage criteria for LVH, may be normal variant ( R in aVL , Noé product ) Borderline ECG When compared with ECG of 10-Dec-2024 12:44, (Unconfirmed) premature atrial complexes are no longer present Confirmed by Rick Roche ([id number]) on 12/11/2024 10:55:19 AM Referred By: Electronically Signed By: Rick Roche Transcribed By: MUS Signed By Rick Roche MD 12/11/24 1055 PATIENT EDUCATION Observed: 12/10/2024 9:51 AM Status: C Source: [facility] Patient Education Nephrology Laser Therapy for Kidney Stones, Care After After laser therapy for kidney stones, it is common to have: ??? Pain. ??? A burning feeling when you pee (urinate). ??? Small amounts of blood in your pee (urine). ??? A need to pee a lot. ??? Parts of the kidney stone in your pee. ??? Mild discomfort in your back when you pee. You may have this if you had a small mesh tube (stent) placed during the procedure. Follow these instructions at home: Medicines ??? Take eftq-oav-oxehsjr and prescription medicines only as told by your health care provider. ??? If you were prescribed antibiotics, take them as told by your provider. Do not stop using the antibiotic even if you start to feel better. ??? Ask your provider if the medicine prescribed to you: ? Requires you to avoid driving or using machinery. ? Can cause constipation. You may need to take these actions to prevent or treat constipation: ? Drink enough fluid to keep your pee pale yellow. ? Take ybcp-zmq-czwmoec or prescription medicines. ? Eat foods that are high in fiber, such as beans, whole grains, and fresh fruits and vegetables. ? Limit foods that are high in fat and processed sugars, such as fried or sweet foods. Activity ??? If you were given a sedative during the procedure, it can affect you for several hours. Do not drive or operate machinery until your provider says that it is safe. ??? Return to your normal activities as told by your provider. Ask your provider what activities are safe for you. General instructions ??? Your provider may recommend that you drink a lot of water for a few hours after your procedure. If you have heart or kidney disease, ask your provider how much you should drink. ??? You may be asked to strain your pee to collect any stone pieces that you pass. Your provider may have these pieces tested. ??? Do not take baths, swim, or use a hot tub until your provider approves. Ask your provider if you may take warm baths to soothe the burning. ??? Keep all follow-up visits. If you have a stent, you will need to go back to your provider to have it removed. Your provider may give you more instructions. Make sure you know what you can and cannot do. Contact a health care provider if: ??? You have pain or a burning feeling that lasts for more than 2 days. ??? You feel nauseous. ??? You vomit more and more often. ??? You have trouble peeing. ??? You have pain that gets worse or does not get better with medicine. ??? You have a fever or shaking chills. Get help right away if: ??? You cannot pee, even when your bladder feels full. ??? You faint. ??? You have chest pain, shortness of breath, or cough up blood. ??? You have: ? Bright red blood or blood clots in your pee. ? Severe pain or discomfort. ? Pain in your abdomen. ? Swelling in your legs. These symptoms may be an emergency. Get help right away. Call 911. ??? Do not wait to see if the symptoms will go away. ??? Do not drive yourself to the hospital. This information is not intended to replace advice given to you by your health care provider. Make sure you discuss any questions you have with your health care provider. Document Revised: 04/21/2023 Document Reviewed: 04/21/2023 [employer] Patient Education ? 2023 [employer].Laser Therapy for Kidney Stones Laser therapy for kidney stones is a procedure to break up rock-like masses that form inside the kidneys (kidney stones). It is done using a device that beams a strong light (laser) on the kidney stones. This breaks the stones up into small pieces. These small pieces may leave your body when you pee (urinate) or may be taken out during the procedure. You may need laser therapy if you have kidney stones that are painful or that are stopping you from being able to pee. Tell a health care provider about: ??? Any allergies you have. ??? All medicines you are taking, including vitamins, herbs, eye drops, creams, and pjnc-szv-htyquyh medicines. ??? Any problems you or family members have had with anesthesia. ??? Any bleeding problems you have. ??? Any surgeries you have had. ??? Any medical conditions you have. ??? Whether you are or may be . What are the risks? Your health care provider will talk with you about risks. These may include: ??? Infection. ??? Bleeding. ??? Allergic reactions to medicines. ??? Damage to: ? The part of your body that drains pee (urine) from the bladder (urethra). ? The bladder. ? The tube that connects the bladder to the kidneys (ureter). ??? Urinary tract infection (UTI). ??? Urethral stricture. This is when the urethra is narrowed by scarring. ??? Trouble peeing. ??? Blockage of the kidney. This may be caused by a piece of kidney stone. What happens before the procedure? When to stop eating and drinking Follow instructions from your provider about what you may eat and drink. These may include: ??? 8 hours before the procedure ? Stop eating most foods. Do not eat meat, fried foods, or fatty foods. ? Eat only light foods, such as toast or crackers. ? All liquids are okay except energy drinks and alcohol. ??? 6 hours before the procedure ? Stop eating. ? Drink only clear liquids, such as water, clear fruit juice, black coffee, plain tea, and sports drinks. ? Do not drink energy drinks or alcohol. ??? 2 hours before the procedure ? Stop drinking all liquids. ? You may be allowed to take medicines with small sips of water. ??? If you do not follow your provider's instructions, your procedure may be delayed or canceled. Medicines ??? Ask your provider about: ? Changing or stopping your regular medicines. These include any diabetes medicines or blood thinners you take. ? Taking medicines such as aspirin and ibuprofen. These medicines can thin your blood. Do not take them unless your provider tells you to. ? Taking afqj-sqr-ouyfwui medicines, vitamins, herbs, and supplements. Tests ??? You may have a physical exam before the procedure. You may also have tests done. These may include: ? Imaging tests. ? Blood or pee tests. Surgery safety ??? Ask your provider: ? How your surgery site will be marked. ? What steps will be taken to help prevent infection. These steps may include: ? Removing hair at the surgery site. ? Washing skin with a soap that kills germs. ? Taking antibiotics. General instructions ??? Do not use any products that contain nicotine or tobacco for at least 4 weeks before the procedure. These products include cigarettes, chewing tobacco, and vaping devices, such as e-cigarettes. If you need help quitting, ask your provider. ??? If you will be going home right after the procedure, plan to have a responsible adult: ? Take you home from the hospital or clinic. You will not be allowed to drive. ? Care for you for the time you are told. What happens during the procedure? An IV will be inserted into one of your veins. ??? You will be given: ? A sedative. This helps you relax. ? Anesthesia. This keeps you from feeling pain. It will make you fall asleep for surgery. ??? A tool with a camera on the end (ureteroscope) will be put into your urethra. It will be moved through your bladder to your kidney. It will send pictures to a screen in the operating room. This will show what parts of your kidney need to be treated. ??? A tube will be put through the ureteroscope. It will be moved into your kidney. ??? The laser device will be put into your kidney through the tube. The laser will be used to break up the kidney stones. ??? A tool with a tiny wire basket may be put through the tube into your kidney. This can help remove the small pieces of the kidney stone. ??? A small mesh tube (stent) may be placed to allow your kidney to drain. ??? The tube and ureteroscope will be taken out at the end of the surgery. The procedure may vary among providers and hospitals. What happens after the procedure? Your blood pressure, heart rate, breathing rate, and blood oxygen level will be monitored until you leave the hospital or clinic. ??? If you had a stent placed, it may have a string that will be secured to your skin. This helps your provider remove the stent. ??? You may be given a strainer to collect any stone pieces that you pass in your pee. Your provider may have these tested. This information is not intended to replace advice given to you by your health care provider. Make sure you discuss any questions you have with your health care provider. Document Revised: 04/21/2023 Document Reviewed: 04/21/2023 [employer] Patient Education ? 2023 [employer] XR ABDOMEN 1 VIEW Observed: 12/10/2024 9:25 AM Status: F Source: [facility] Exam Date/Time: 12/10/2024 09:36 EDT Reason for Exam: Kidney stone Report IMPRESSION: NO RENAL CALCULI IDENTIFIED. PELVIC PHLEBOLITHS VERSUS CAUDAL URETERAL CALCULI. CLINICAL HISTORY: Kidney stone COMPARISON: NONE. FINDINGS: Gas and stool in colon. No diffuse small bowel dilatation, or mass effect. Multiple gallbladder calculi identified. No calcification over region bilateral kidneys. Calcifications pelvic inlet. Technical Comments: Ka,r in mGy = na DAP = na Ordering Provider: Haja FRITZ FINAL REPORT Dictated: 12/11/2024 2:55 pm Molina Jimenez MD Signed (Electronic Signature): 12/11/2024 2:55 pm Signed by: Molina Jimenez MD Transcribed by: JUN Technologist: JOHN AMBULATORY VISIT SUMMARY Observed: 12/10 9:17 AM Status: F Source: [facility] Ambulatory Visit Summary LISA GOMEZ :1950 Visit Date:12/10/2024 Ambulatory Visit Instructions Your Diagnosis Ureteral stone with hydronephrosis Kidney stones Your Care Team Attending Physician - Haja FRITZ MD Primary Care Physician - ANDRES VAZQUEZ DO This Is Your Medications List Contact prescribing physician if questions or concerns amlodipine aspirin ([employer] Childrens Aspirin 81 mg oral tablet, chewable) cephalexin (cephalexin 500 mg Cap) fluoxetine (FLUoxetine 20 mg Cap) predniSONE (predniSONE 5 mg oral delayed release tablet) rosuvastatin (rosuvastatin 20 mg oral capsule) Procedures Performed Colonoscopy, Lithotripsy using laser, Removal of mole of skin by excision. Discharge Vitals Temperature (Temporal Artery) 37 ???C Heart Rate (Peripheral) 75 Respiratory Rate 16 Blood Pressure 138/89 Height 155 cm Height 61 in Weight 93.5 kg Weight 206.132 lb BMI 38.92 What to do next You Need to Schedule the Following Appointments Follow Up with LAM JUAREZ, Haja Tate, HERNAN When: Where: [facility] [address] [place] [address] Medications What How Much When Instructions Unchanged amlodipine Contact prescribing physician if questions or concerns Unchanged aspirin (Rabia Childrens Aspirin 81 mg oral tablet, chewable) Contact prescribing physician if questions or concerns Unchanged cephalexin (cephalexin 500 mg Cap) Contact prescribing physician if questions or concerns Unchanged fluoxetine (FLUoxetine 20 mg Cap) Contact prescribing physician if questions or concerns Unchanged predniSONE (predniSONE 5 mg oral delayed release tablet) Contact prescribing physician if questions or concerns Unchanged rosuvastatin (rosuvastatin 20 mg oral capsule) Contact prescribing physician if questions or concerns Medications and Immunizations Administered Given measles/mumps/rubella virus vaccine, Allergies lisinopril (Lip swelling., Unknown) Problems Ongoing - Any problem that you are currently receiving treatment for. Basal cell carcinoma of skin (skin cancer) Kidney stones Ureteral stone with hydronephrosis Patient Survey You may receive a survey via text or e-mail asking about your office visit. Please share your experience with us by completing your survey. We appreciate your feedback and thank you for choosing us for your care. Education Materials Laser Therapy for Kidney Stones, Care After After laser therapy for kidney stones, it is common to have: ??? Pain. ??? A burning feeling when you pee (urinate). ??? Small amounts of blood in your pee (urine). ??? A need to pee a lot. ??? Parts of the kidney stone in your pee. ??? Mild discomfort in your back when you pee. You may have this if you had a small mesh tube (stent) placed during the procedure. Follow these instructions at home: Medicines ??? Take djwl-ein-iiajosj and prescription medicines only as told by your health care provider. ??? If you were prescribed antibiotics, take them as told by your provider. Do not stop using the antibiotic even if you start to feel better. ??? Ask your provider if the medicine prescribed to you: ? Requires you to avoid driving or using machinery. ? Can cause constipation. You may need to take these actions to prevent or treat constipation: ? Drink enough fluid to keep your pee pale yellow. ? Take mfkd-odk-zqvztih or prescription medicines. ? Eat foods that are high in fiber, such as beans, whole grains, and fresh fruits and vegetables. ? Limit foods that are high in fat and processed sugars, such as fried or sweet foods. Activity ??? If you were given a sedative during the procedure, it can affect you for several hours. Do not drive or operate machinery until your provider says that it is safe. ??? Return to your normal activities as told by your provider. Ask your provider what activities are safe for you. General instructions ??? Your provider may recommend that you drink a lot of water for a few hours after your procedure. If you have heart or kidney disease, ask your provider how much you should drink. ??? You may be asked to strain your pee to collect any stone pieces that you pass. Your provider may have these pieces tested. ??? Do not take baths, swim, or use a hot tub until your provider approves. Ask your provider if you may take warm baths to soothe the burning. ??? Keep all follow-up visits. If you have a stent, you will need to go back to your provider to have it removed. Your provider may give you more instructions. Make sure you know what you can and cannot do. Contact a health care provider if: ??? You have pain or a burning feeling that lasts for more than 2 days. ??? You feel nauseous. ??? You vomit more and more often. ??? You have trouble peeing. ??? You have pain that gets worse or does not get better with medicine. ??? You have a fever or shaking chills. Get help right away if: ??? You cannot pee, even when your bladder feels full. ??? You faint. ??? You have chest pain, shortness of breath, or cough up blood. ??? You have: ? Bright red blood or blood clots in your pee. ? Severe pain or discomfort. ? Pain in your abdomen. ? Swelling in your legs. These symptoms may be an emergency. Get help right away. Call 911. ??? Do not wait to see if the symptoms will go away. ??? Do not drive yourself to the hospital. This information is not intended to replace advice given to you by your health care provider. Make sure you discuss any questions you have with your health care provider. Document Revised: 04/21/2023 Document Reviewed: 04/21/2023 [employer] Patient Education ??? 2023 [employer]. Laser Therapy for Kidney Stones Laser therapy for kidney stones is a procedure to break up rock-like masses that form inside the kidneys (kidney stones). It is done using a device that beams a strong light (laser) on the kidney stones. This breaks the stones up into small pieces. These small pieces may leave your body when you pee (urinate) or may be taken out during the procedure. You may need laser therapy if you have kidney stones that are painful or that are stopping you from being able to pee. Tell a health care provider about: ??? Any allergies you have. ??? All medicines you are taking, including vitamins, herbs, eye drops, creams, and udib-mxi-efunwud medicines. ??? Any problems you or family members have had with anesthesia. ??? Any bleeding problems you have. ??? Any surgeries you have had. ??? Any medical conditions you have. ??? Whether you are or may be . What are the risks? Your health care provider will talk with you about risks. These may include: ??? Infection. ??? Bleeding. ??? Allergic reactions to medicines. ??? Damage to: ? The part of your body that drains pee (urine) from the bladder (urethra). ? The bladder. ? The tube that connects the bladder to the kidneys (ureter). ??? Urinary tract infection (UTI). ??? Urethral stricture. This is when the urethra is narrowed by scarring. ??? Trouble peeing. ??? Blockage of the kidney. This may be caused by a piece of kidney stone. What happens before the procedure? When to stop eating and drinking Follow instructions from your provider about what you may eat and drink. These may include: ??? 8 hours before the procedure ? Stop eating most foods. Do not eat meat, fried foods, or fatty foods. ? Eat only light foods, such as toast or crackers. ? All liquids are okay except energy drinks and alcohol. ??? 6 hours before the procedure ? Stop eating. ? Drink only clear liquids, such as water, clear fruit juice, black coffee, plain tea, and sports drinks. ? Do not drink energy drinks or alcohol. ??? 2 hours before the procedure ? Stop drinking all liquids. ? You may be allowed to take medicines with small sips of water. ??? If you do not follow your provider's instructions, your procedure may be delayed or canceled. Medicines ??? Ask your provider about: ? Changing or stopping your regular medicines. These include any diabetes medicines or blood thinners you take. ? Taking medicines such as aspirin and ibuprofen. These medicines can thin your blood. Do not take them unless your provider tells you to. ? Taking ewxy-zqk-xrsizbu medicines, vitamins, herbs, and supplements. Tests ??? You may have a physical exam before the procedure. You may also have tests done. These may include: ? Imaging tests. ? Blood or pee tests. Surgery safety ??? Ask your provider: ? How your surgery site will be marked. ? What steps will be taken to help prevent infection. These steps may include: ? Removing hair at the surgery site. ? Washing skin with a soap that kills germs. ? Taking antibiotics. General instructions ??? Do not use any products that contain nicotine or tobacco for at least 4 weeks before the procedure. These products include cigarettes, chewing tobacco, and vaping devices, such as e-cigarettes. If you need help quitting, ask your provider. ??? If you will be going home right after the procedure, plan to have a responsible adult: ? Take you home from the hospital or clinic. You will not be allowed to drive. ? Care for you for the time you are told. What happens during the procedure? An IV will be inserted into one of your veins. ??? You will be given: ? A sedative. This helps you relax. ? Anesthesia. This keeps you from feeling pain. It will make you fall asleep for surgery. ??? A tool with a camera on the end (ureteroscope) will be put into your urethra. It will be moved through your bladder to your kidney. It will send pictures to a screen in the operating room. This will show what parts of your kidney need to be treated. ??? A tube will be put through the ureteroscope. It will be moved into your kidney. ??? The laser device will be put into your kidney through the tube. The laser will be used to break up the kidney stones. ??? A tool with a tiny wire basket may be put through the tube into your kidney. This can help remove the small pieces of the kidney stone. ??? A small mesh tube (stent) may be placed to allow your kidney to drain. ??? The tube and ureteroscope will be taken out at the end of the surgery. The procedure may vary among providers and hospitals. What happens after the procedure? Your blood pressure, heart rate, breathing rate, and blood oxygen level will be monitored until you leave the hospital or clinic. ??? If you had a stent placed, it may have a string that will be secured to your skin. This helps your provider remove the stent. ??? You may be given a strainer to collect any stone pieces that you pass in your pee. Your provider may have these tested. This information is not intended to replace advice given to you by your health care provider. Make sure you discuss any questions you have with your health care provider. Document Revised: 04/21/2023 Document Reviewed: 04/21/2023 Elsevier Patient Education ??? 2023 [employer] UROLOGY OFFICE/CLINIC NOTE Observed: 04/2025 9:17 AM Status: F Source: [facility] Urology Office/Clinic Note Chief Complaint ureteral stone HPI Staff New Pt f/u from [facility] ED 12/03/24 for UTI and right flank pain. CT showed mild right hydronephrosis secondary to 3mm and 6mm calculus in the distal right ureter. Pt was given Keflex 500mg TID for 7 days and Ketorolac 10mg PRN. Pt states she is still having a little burning with urination. Drinks only about 2- 16oz bottles of water daily. Denies any blood in urine or any other urinary complaints at this time. History of Present Illness Tests reviewed: UA, ED records, CT, KUB I have reviewed the previous health record information and history for this patient from [facility]. I have reviewed and verified the staff HPI to be accurate for this encounter. Review of Systems PHQ Score Initial Depression Screen Score: 0 SCORE ROS - Provider Constitutional: denies weight loss, denies hot flashes. Eyes: denies eye problems. Gastrointestinal: denies nausea, denies vomiting. Cardiovascular: denies chest pain or angina. Integumentary: no dryness Musculoskeletal: denies musculoskeletal symptoms. ENMT: denies otolaryngeal symptoms. Respiratory: no shortness of breath. Heme/Lymph: denies easy bleeding tendency, denies easy bruising tendency. Psychiatric: no confusion, no anxiety. Genitourinary: See HPI. Physical Exam Vitals & Measurements T: 37 ???C(Temporal Artery) HR: 75(Peripheral) RR: 16 BP: 138/89 HT: 155 cm HT: 61 in WT: 93.5 kg WT: 206.132 lb BMI: 38.92 General Appearance: alert, no distress, well nourished, well developed female. Assessment/Plan Lisa is a 74 yo F new pt following up to [facility] ED visit on 12/03/24 d/t weakness, dizziness, and R flank pain. On ASA, no other BTs. ASA does increase bleeding risk. 1. Ureteral stone with hydronephrosis (N13.2: Hydronephrosis with renal and ureteral calculous obstruction) CT AP wo con 12/03/24 [facility] - Mild R hydro secondary to a 3 mm and a 6 mm stone in the distal R ureter. No L hydro. KUB 12/10/24 [facility] - Report pending. Personal review: stable ureteral stones. Reviewed imaging with pt using visual diagram, stones are distal and appear unchanged since CT on today's KUB. It is not promising that stones haven't moved in a week and her infection. Slight RLQ pain on exam, no LLQ pain. Currently taking Keflex 500 mg tid x 7 days. Discussed options including cont letting pt try to pass stone vs surgical intervention of cysto, urs, Right laser litho, stent placement. Pt brings up possibility of ureteral stricture noted by Dr Abraham. R/Bs of options discussed. Pt elects to proceed with surgical intervention. Has not taken any ketorolac from the ED. -Remain NPO -Will schedule cysto, urs, Right laser litho, stent placement. The procedural risks, benefits, details, and treatment alternatives have been discussed with the patient. These include bleeding, infection, inability to break or retrieve all of the stone, injury to the ureter (the tube which connects the kidney to the bladder), injury to the kidney scarring of the ureter, and need for repeat procedures, among others. Full informed consent has been obtained. Will order General anesthesia. 2. Kidney stones (N20.0: Calculus of kidney) CT AP wo con 12/03/24 [facility] - A few nonobstructing subcentimeter BL renal stones. Distant hx of renal stones require laser litho by Dr Abraham. Overall the patient has been trying to pass the stones for about a week or so. She also had a urinary tract infection. We discussed that long-term obstruction in this setting does raise the risk of UTI with subsequent progression and possible sepsis. She prefers to proceed with operative intervention. We discussed all the pros cons treatment alternatives and she wants to proceed. We discussed anesthesia risk as well. This includes heart and lung problems. She has moderate increased bleeding risk due to being on asprin daily. Follow-up With When Contact Information LAM JUAREZ, Haja Tate, URL [address] [address]- Additional Instructions: schedule cysto, urs, Right laser litho, stent placement Patient Education Laser Therapy for Kidney Stones, Care After Laser Therapy for Kidney Stones Krissy Smith, personally scribed for Dr. Fritz on 12/10/2024 09:56:18. . Documentation recorded by the scribe, Krissy Ceron, accurately reflects the services(s) I performed and decisions made by me. Authenticated by Dr. Fritz on 12/10/2024 10:00:30. Portions of this record may have been created with voice recognition artificial intelligence software, specifically [email or web address], [employer] and or [employer]. Substitutions may have occurred due to the inherent limitations of voice recognition and artificial intelligence software. Problem List/Past Medical History Ongoing Basal cell carcinoma of skin (skin cancer) Kidney stones Ureteral stone with hydronephrosis Historical No qualifying data Procedure/Surgical History Colonoscopy, Lithotripsy using laser, Removal of mole of skin by excision. Medications amlodipine, Oral Rabia Childrens Aspirin 81 mg oral tablet, chewable, Oral cephalexin 500 mg Cap, Oral FLUoxetine 20 mg Cap, Oral predniSONE 5 mg oral delayed release tablet, Oral rosuvastatin 20 mg oral capsule, Oral Allergies lisinopril (Lip swelling., Unknown) Social History Alcohol Current. Beer, Wine. 1-2 times per month., 12/06/2024 Substance Abuse Never., 12/06/2024 Tobacco Never (less than 100 in lifetime) Tobacco Use:. Never Smokeless Tobacco Use:. Household tobacco concerns: No., 12/10/2024 Family History Arthritis: Mother. Heart disease: Mother and Father. High cholesterol: Mother and Father. Hypertension: Mother and Father. Kidney stone: Grandparent. Migraine: Grandparent. Stroke: Father. Immunizations Vaccine Date Status measles/mumps/rubella virus vaccine 05/05/1956 Given Result Comment: Electronical ly Signed By: Haja FRITZ MD\.br\Date and Time Signed: 12/10/24 10:02 EDT\.br\Electronically Co-Signed By: Krissy Ceron\.br\Date and Time Co-Signed: 12/10/24 09:56 EDT\.br\Electronically Co-Signed By: Krissy Ceron\.br\Date and Time Co-Signed: 12/10/24 09:57 EDT URINE CULTURE Observed: 12/03/2024 9:43 PM Status: F Source: [facility] ORGANISM: Escherichia coli ( O:ESCCOL) [place] Count 75,000 ORGANISM: Klebsiella pneumoniae (O:KLEPNE) [place] Count 50,000 Aerobic ANUJ Charge (NMIC56) SUSCEPTIBILITY ORGANISM: O:ESCCOL ANTIBIOTIC INTERPRETATION ANUJ Amikacin S <16 Amoxacillin/K Clavulanate S <8 Ampicillin S <8 Ampicillin/Sulbactam S <4 Aztreonam S <4 Cefazolin S <2 Cefepime S <2 Ceftazidime S <1 Ceftazidime/Avibactam S <4 Ceftolozane/Tazobactam S <2 Ceftriaxone S <1 Cefuroxime S <4 Ciprofloxacin S <0.25 Ertapenem S <0.5 Gentamicin S <2 Levofloxacin S <0.5 Meropenem S <1 Meropenem/Vaborbactam S <2 Nitrofurantoin S <32 Piperacillin/Tazobactam S <8 Tetracycline S <4 Tigecycline S <2 Tobramycin S <2 Trimethoprim/Sulfamethoxazole S <0.5 Aerobic ANUJ Charge (NMIC56) SUSCEPTIBILITY ORGANISM: O:KLEPNE ANTIBIOTIC INTERPRETATION ANUJ Amikacin S <16 Amoxacillin/K Clavulanate S <8 Ampicillin/Sulbactam S <4 Aztreonam S <4 Cefazolin S <2 Cefepime S <2 Ceftazidime S <1 Ceftazidime/Avibactam S <4 Ceftolozane/Tazobactam S <2 Ceftriaxone S <1 Cefuroxime S <4 Ciprofloxacin S <0.25 Ertapenem S <0.5 Gentamicin S <2 Levofloxacin S <0.5 Meropenem S <1 Meropenem/Vaborbactam S <2 Nitrofurantoin S <32 Piperacillin/Tazobactam S <8 Tetracycline S <4 Tigecycline S <2 Tobramycin S <2 Trimethoprim/Sulfamethoxazole S <0.5 S = SUSCEPTIBLE I = INTERMEDIATE R = RESISTANT BLANK = DATA NOT AVAILABLE, OR DRUG NOT ADVISABLE OR TESTED R* = RESISTANCE DUE TO EXTENDED SPECTRUM BETA-LACTAMASES ESBL = EXTENDED SPECTRUM BETA-LACTAMASE TFG = THYMIDINE-DEPENDENT STRAIN MARÍA = BETA-LACTAMASE POSITIVE IB = INDUCIBLE BETA-LACTAMASE. APPEARS IN PLACE OF 'S' WITH SPECIES KNOWN TO POSSESS INDUCIBLE BETA-LACTAMASES. POTENTIALLY THEY MAY BECOME RESISTANT TO ALL B-LACTAM DRUGS. PERFORMED BY: [place] [address] PATHOLOGIST COLOR STRAINER HASMUKH COLMENARES M.D. Performed By: #### CUU #### [place] [id number] [facility] BASIC METABOLIC PANL Collected: 10/03/2024 1:26 PM Status: COMPLETED Source: [place] TYPE CODE TESTS RESULT OUT OF RANGE REFERENCE UNITS LAB NA(LOINC) SODIUM 141 134-146 mmol/L LAB K(LOINC) POTASSIUM 3.8 3.5-5.0 mmol/L LAB CL(LOINC) CHLORIDE 106 98-109 mmol/L LAB CO2(LOINC) CARBON DIOXIDE 26 22-32 mmol/L LAB AGAP(LOINC) ANION GAP 9 5-15 mmol/L LAB BUN(LOINC) BLOOD UREA NITROGEN 18 5-27 mg/dL LAB CRET(LOINC) CREATININE 1.10 High 0.40-1.00 mg/dL Result Comment: METHOD TRACE ABLE TO IDMS STANDARD LAB GLU(LOINC) GLUCOSE 110 High 65-99 mg/dL LAB CA(LOINC) CALCIUM 9.4 8.5-10.5 mg/dL LAB EGFR(LOINC) eGFR (CKD-EPI) NON-RACE DEPENDENT 53 Low >59 ml/min/1. 73sq.m Result Comment: Reported eGFR is based on the CKD-EPI 2020 equation that does not use a race coefficient. Performed By: #### BMP, HA1C #### [facility] ([id number]) [address], [address] [place] [address] HGB A1C (GLYCO-HGB) Collected: 10/03/2024 1:26 PM Status: COMPLETED Source: [place] TYPE CODE TESTS RESULT OUT OF RANGE REFERENCE UNITS LAB HBA1C(LOINC) HEMOGLOBIN A1C 5.3 4.4-5.6 % Result Comment: NOTE ADA Guidelines Result HgbA1c Normal : less than 5.7 % Prediabetes : 5.7 % to 6.4 % Diabetes : > 6.4 % Use with caution in patients with abnormal hemoglobin variants as the half-life of red blood cells and in vivo glycation rates are affected. LAB EAG(LOINC) AVERAGE GLUCOSE 105 mg/dL Performed By: #### BMP, HA1C #### [facility] ([id number]) [address] [place] [address], [address] [place] [address] HEP C AB WRFX TO QNT PCR Collected: 09/18/2024 2:10 P M Status: F Source: [facility] TYPE CODE TESTS RESULT OUT OF RANGE REFERENCE UNITS LAB HCV AB. Hepatitis C Virus Antibody Non Reactive Non Reactive LAB RFXHEPCINTERP Interpretation Hepatitis C Comment . Result Comment: Not infected with HCV unless early or acute infection is suspected (which may be delayed in an immunocompromised individual), or other evidence exists to indicate HCV infection. Performed By: #### HBSAG, HB SAB, QUANT TB, HCV RX PCR, HBCAB #### [facility] , HEPATITIS B SURFACE ANTIBODY Collected: 09/18/2024 2: 10 PM Status: F Source: [facility] TYPE CODE TESTS RESULT OUT OF RANGE REFERENCE UNITS LAB HBSAB Hepatitis B Surface Antibody Non Reactive . Result Comment: Non Reactive : Not immune to HBV infection. Equivocal: Unable to determine if anti-HBs is present at levels consistent with immunity. Reactive: Anti-HBs concentration detected at greater than 10 mIU/mL. Individual is considered to be immune to infection with HBV. Performed By: #### HBSAG, HB SAB, QUANT TB, HCV RX PCR, HBCAB #### [facility] , HEPATITIS B CORE ANTIBODY Collected: 09/18/2024 2:10 PM Status: F Source: [facility] TYPE CODE TESTS RESULT OUT OF RANGE REFERENCE UNITS LAB HBCAB Hepatitis B Core Antibody Negative Negative Result Comment: Performed at : [facility], [place], [place] [id number] Registered Nurse Behavioral Health: Sly Mack PhD, Phone: [phone] Performed By: #### HBSAG, HB SAB, QUANT TB, HCV RX PCR, HBCAB #### [facility] , HEPATITIS B SURFACE ANTIGEN Collected: 09/18/2024 2:1 0 PM Status: F Source: [facility] TYPE CODE TESTS RESULT OUT OF RANGE REFERENCE UNITS LAB HBSAG SCR HBsAg Screen Negative Negative Result Comment: PERFORMED BY : [facility] [address] PATHOLOGIST COLOR STRAINER HASMUKH COLMENARES M.D. Performed By: #### HBSAG, HB SAB, QUANT TB, HCV RX PCR, HBCAB #### [facility] , QUANTIFERON TB GOLD Collected: 09/18/19 2:10 PM Status: F Source: [facility] TYPE CODE TESTS RESULT OUT OF RANGE REFERENCE UNITS LAB QFTB POSITIVE QFTB Criteria Comment . Result Comment: QuantiFERON- TB Gold Plus is a qualitative indirect test for M tuberculosis infection (including disease) and is intended for use in conjunction with risk assessment, radiography, and other medical and diagnostic evaluations. The QuantiFERON-TB Gold Plus result is determined by subtracting the Nil value from either TB antigen (Ag) value. The Mitogen tube serves as a control for the test. LAB TB AG VALUE Quant TB Ag Value 0.03 . [IU]/mL LAB QUANT TB2 Quant TB2 Ag Value 0.03 . [IU]/mL LAB QUANT [place] Quantiferon Nil Value 0.02 . [IU]/mL LAB QUANT MITOGEN Quantiferon TB Mitogen >10.00 . [IU]/mL LAB QUANT TB GOLDPL Quant TB Gold Plus Negative Negative Result Comment: No response to M tuberculosis antigens detected. Infection with [...] interferon gamma. Chemiluminescence immunoassay methodology Performed at: [facility] [employer] [id number] Registered Nurse Behavioral Health: Sly Mack PhD, Phone: [phone] PERFORMED BY: [facility] [place] [address] PATHOLOGIST COLOR STRAINER HASMUKH COLMENARES M.D. Performed By: #### HBSAG, HB SAB, QUANT TB, HCV RX PCR, HBCAB #### [facility] , COMPREHENSIVE METABOLIC PANEL Collected : 02/01/2024 10:00 AM Status: COMPLETED Source: [place] TYPE CODE TESTS RESULT OUT OF RANGE REFERENCE UNITS LAB NA(LOINC) SODIUM 139 134-146 mmol/L LAB K(LOINC) POTASSIUM 4.3 3.5-5.0 mmol/L LAB CL(LOINC) CHLORIDE 105 98-109 mmol/L LAB CO2(LOINC) CARBON DIOXIDE 24 22-32 mmol/L LAB AGAP(LOINC) ANION GAP 10 5-15 mmol/L LAB BUN(LOINC) BLOOD UREA NITROGEN 21 5-27 mg/dL LAB CRET(LOINC) CREATININE 1.00 0.40-1.00 mg/dL Result Comment: METHOD TRACE ABLE TO IDMS STANDARD LAB GLU(LOINC) GLUCOSE 100 High 65-99 mg/dL LAB CA(LOINC) CALCIUM 8.9 8.5-10.5 mg/dL LAB TP(LOINC) TOTAL PROTEIN 7.6 6.0-8.0 g/dL LAB ALB(LOINC) ALBUMIN 4.0 3.2-5.3 g/dL LAB ALK(LOINC) ALKALINE PHOSPHATASE 103 39-130 U/L LAB AST(LOINC) AST 15 0-41 U/L LAB ALT1(LOINC) ALT 15 0-31 U/L LAB TBIL(LOINC) BILIRUBIN,TOTAL 0.4 0.3-1.2 mg/d L LAB EGFR(LOINC) eGFR (CKD-EPI) NON-RACE DEPENDENT 60 >59 ml/min/1 .73sq.m Result Comment: Reported eGFR is based on the CKD-EPI 2020 equation that does not use a race coefficient. Performed By: #### CMP, 2433 1-1 #### [facility] ([id number]) [address] [place] [address] [address] [place] [address] LIPID PROFILE Collected: 02/01/2024 10:00 AM Status: COMPLETED Source: [place] TYPE CODE TESTS RESULT OUT OF RANGE REFERENCE UNITS LAB CHOL(LOINC) CHOLESTEROL 189 150-200 mg/dL LAB TRIG(LOINC) TRIGLYCERIDE 91 27-150 mg/dL LAB HDL(LOINC) HDL CHOLESTEROL 65 >39 mg/dL Result Comment: HDL <40 mg/dL - High Risk HDL > or = 40mg/dL- Desirable HDL >60 mg/dL - Negative Risk LAB VLDL(LOINC) VERY LOW LIPOPROTEIN 18 0-30 mg/dL LAB LDL(LOINC) LDL (CALC) 106 <130 mg/dL Result Comment: LDL <100 mg/dL - Desirable LDL >160 mg/dL - High Risk LAB CHDL(LOINC) CHOLESTEROL:HDL 2.9 1.0-5.0 Performed By: #### [facility], 2433 1-1 #### [facility] ([id number]) [address], [address] [place] [address] ALLERGIES DATE TYPE / CODE NAME / CODE REACTION SEVERITY SOURCE 12/10/2024 Drug Allergy/4160 83801(SNOMED CT) lisinopril/[id number] 658(RXNORM) Swelling of Lip/Tongue/Throat Unknown [facility] 09/20/2019 DRUG INGREDI/4195 31632(SNOMED CT) LISINOPRIL Angioedema High [facility] DR/530426115 (SNOMED CT) lisinopril [id number] 11 [facility] ENCOUNTERS ADMIT/DISCHARGE ACCOUNT NUMBER ADMITTING ENCOUNTER CLASS LOCATION SOURCE 12/31/2024 [id number] Ambulatory [place]:SARAH [facility] 12/31/2024/01/01/20 25 [id number] Ambulatory [place] : Exam 7 [facility] 12/23/2024/12/24/19 25 [id number] Haja FRITZ Ambulatory FTBuilding :FT.XRAY EU [place] [facility] 12/10/2024/12/11/19 25 [id number] [facility] 12/10/2024/12/11/19 25 [id number] Ambulatory CD:[id number] 7Building:CD :[id number] [facility] 12/10/2024/12/11/19 25 [id number] Haja FRITZ Ambulatory FTBuilding :FT.XRAY [place] [facility] 12/10/2024/12/11/19 25 [id number] Ambulatory [place]:EU [place] : Exam 8 [facility] 12/05/2024 [id number] Ambulatory EU [place] [facility] 12/03/2024/12/04/19 25 [id number] Shobha Pritchett [facility] 10/03/2024/10/03/19 25 [id number] Ambulatory Building:PTH _[facility] 10/03/2024/10/03/19 25 [id number] Ambulatory Buildin 91 [facility] 09/18/2024/09/18/19 25 [id number] Dax Coello [facility] 09/17/2024/09/17/19 25 [id number] Ambulatory Buildin 91 [facility] 02/01/2024/02/01/20 24 [id number] Ambulatory Building:[facility] 02/01/2024/02/01/20 24 [id number] Ambulatory Buildin 91 [facility] PAYERS ENCOUNTER GUARANTOR PAYER SUBSCRIBER SOURCE 12/31/2024 LISA Talbert RIHALINALDOB: [place] RDTel: ~ ~(4 1 (HP) Primary Insurance:AETNAPolicy Number: [id number] Date:5742-74-16[address] [place] [address]EA: LISA Talbert MNHALINAJoseKind[facility] 12/31/2024 LISA Talbert RIEHLDOB: [place] RDTel: ~ ~(4 1 (HP) Primary Insurance:AETNAPolicy Number: [id number] Date:0680-01-08YS [address] [place] [address]TQ: LISA Talbert MNHALINAJoseKindred [facility] 12/23/2024 LISA Talbert RIEHLDOB: [id number] [place] RDTel: ~ ~(4 1 (HP) Primary Insurance:AETNAPolicy Number: [id number] Date:2333-11-78UC [address] [place] [address]VY: LISA Talbert MNHALINAJoseKindred [facility] 12/10/2024 Lisa Talbert R[address]oq[address] [place] [address]Ybi: (HP) Primary Insurance:[employer]na MCR PFFSPolicy Number: [id number] Date:1498-48-61JK [address] [place] [address]WJ: Lisa Talbert RihalinalDOB: [id number] [place] [address]Omj: (HP) [facility] 12/10/2024 Secondary Insurance:Self PayPolicy Number: Effective Date:2024-12-10 [facility] 12/10/2024 LISA CASTELLANOSEHLDOB: [place] RDTel: ~ ~(4 1 (HP) Primary Insurance:AETNAPolicy Number: [id number] Date:6485-73-65MM [address] [place] [address]JC: LISA MCKEON [facility] 12/10/2024 LISA Talbert RIEHLDOB: [place] RDTel: ~ ~(4 1 (HP) Primary Insurance:AETNAPolicy Number: [id number] Date:0661-55-00KA [address] [place] [address]JW: LISA Talbert MNIVETTE [facility] 12/10/2024 LISA CASTELLANOSEHLDOB: [place] RDTel: ~ ~(4 1 (HP) Primary Insurance:AETNAPolicy Number: [id number] Date:4732-80-80RV [address] [place] [address]ON: LISA Talbert MNIVETTE [facility] 12/05/2024 Primary Insurance:MEDICAREPol icy Number: [id number] Date:8935-80-82IW [address] [address], [place] [address]WX: LISA MNAMPAROKindred Hospital [facility] 12/03/2024 Lisa Talbert [id number] [place] [address]Khy: (HP) Primary Insurance:Self PayPolicy Number: Effective Date:2024-12-03 NOT [facility]ENOhio[facility] 10/03/2024 LISA ELENALDOB: LIMERICJerod [place], [place] [address]Rbn: (HP) Primary Insurance:AETNA MEDICARE PLAN (PPO)Policy Number: [id number] Date:2022-10-05 LISA ELENALDOB: [id number] [address], [place] [address]Gci: (HP) [facility] 10/03/2024 LISA EELNALDOB: [id number] [address], [place] [address]Rzc: (HP) Primary Insurance:AETNA MEDICARE PLAN (PPO)Policy Number: [id number] Date:2022-10-05 LISA ELENALDOB: [id number] [address], [place] [address]Yjo: () [facility] 09/18/2024 Lisa Elenal[address] [place] [address]Mck: (HP) Primary Insurance:Aetna Insurance CompanyPolicy Number: [id number] Date:2024-09-18 Lisa ElenalDOB: [id number] [place] [address]Vpz: () [facility] 09/18/2024 Secondary Insurance:Self PayPolicy Number: Effective Date:2024-09-18 [facility]ENOhio[facility] 09/17/2024 LISA ELENALDOB: [id number] [address], [place] [address]Hdt: () Primary Insurance:AETNA MEDICARE PLAN (PPO)Policy Number: [id number] Date:2022-10-05 LISA ELENALDOB: [id number] [address], [place] [address]Svx: (HP) [facility] 02/01/2024 LISA Talbert EMANUELLDOB: [id number] [address] [place], [place] [address]Fzm: () Primary Insurance:AET MEDICARE PLAN (PPO)Policy Number: [id number] Date:2022-10-05 LISA Talbert RIEHLDOB: [id number] [address] ADRIANNAANNAMARIADeepa, [place] [address]Nrg: (HP) [facility] 02/01/2024 LISA Talbert RIEHLDOB: [id number] [address] RDTEREZ[place], [place] [address]Adg: () Primary Insurance:AET MEDICARE PLAN (PPO)Policy Number: [id number] Date:2022-10-05 LISA Talbert RIEHLDOB: [id number] [address]RISTIN[address]ONJerod [place], [place] [address]Vde: (HP) [facility]
--- OUTSIDE RECORDS SUMMARY | 2025-01-24 15:31 | XMS_ITS | Encounter Summary ---
Author Organization [employer] Address [facility] [id number] [address] [place] [address] Care Team Providers Care Potash Flaker Name Role Phone SachaAndres acevedo Primary Care Provider + [phone] Reason for Visit * Reason Onset Date Comments Med Refill 01/26/2024 Encounter Details Date Type Department Care Team (Late st Contact Info) Description 01/26/2024 Refill [facility] - [facility] Medicine [address] [place] [address] Kate Thornton, LPN INSTRUCTOR-HAM MARKER [address] [address] Situational anxiety Social History Tobacco Use Types Packs/Day Years Used Date Smoking Tobacco: Never Smokeless Tobacco: Never Alcohol Use Standard Drinks/Week Comments Yes 0 (1 standard drink = 0.6 oz pur e alcohol) Social/occasional PHQ-2 Answer Date Recorded Total Score 2 11/28/2023 Childcare Answer Date Recorded Childcare Unknown 02/13/2019 Employment Answer Date Recorded Employment Unknown 02/13/2019 Hunger Screening Answer Date Recorded Within the past 12 months we worried whether our food would run out before we got money to buy more. Never True 11/28/2023 Within the past 12 months th e food we bought just didn't last and we didn't have money to get more. Never True 11/28/2023 Purpose - Life Answer Date Recorded Purpose and direction in life Unknown Comments No Sex and Gender Information Value Date Recorded Sex Assigned at Not on file Legal Sex Female 11:36 AM EDT Gender Identity Not on file Sexual Orientation Not on file documented as of this encounter Plan of Treatment Upcoming Encounters Date Type Department Care Team (Late st Contact Info) Description 09/18/2025 9:40 AM EST Office Visit [facility] [address] [place] [address] documented as of this encounter Visit Diagnoses Diagnosis Situational anxiety documented in this encounter Additional Health Concerns Assessment Noted Time PHQ-9 Depression Total Score: 2 11/28/19 24 9:07 AM EDT documented as of this encounter Care Teams Potash Flaker Relationship Specialty Start Date End Date Andres Broderick DO [address] [place] [address] PCP - General 10/01/24 documented as of this encounter
--- OUTSIDE RECORDS SUMMARY | 2025-01-24 15:31 | XMS_ITS | Encounter Summary ---
Author Organization [facility] [employer] Sys tem Address [facility] [place]-[id number] [address] [place] [address] Care Team Providers Care Pin Puller Name Role Phone SachaAndres acevedo Primary Care Provider + [phone] Encounter Details Date Type Department Care Team (Late st Contact Info) Description 12/18/2024 Orders Only [facility] - [facility] Medicine [address] [place] [address] Ref Prov, [place] [address] Social History Tobacco Use Types Packs/Day Years Used Date Smoking Tobacco: Never Smokeless Tobacco: Never Alcohol Use Standard Drinks/Week Comments Yes 0 (1 standard drink = 0.6 oz pur e alcohol) Social/occasional AHC Utilities Answer Date Recorded In the past 12 months has [employer] electric, gas, oil, or water company threatened to shut off services in your home? No 09/17/2024 Social Connection and Isolat ion Panel [NHANES] Answer Date Recorded In a typical week, how many times do you talk on the phone with family, friends, or neighbors? Once a week 09/17/2024 How often do you get togethe r with friends or relatives? Once a week 09/17/2024 How often do you attend chur ch or orthodox services? More than 4 times per year 09/17/2024 Do you belong to any clubs o r organizations such as druze groups, unions, fraternal or athletic groups, or school groups? Yes 09/17/2024 How often do you attend meet ings of the clubs or organizations you belong to? Never 09/17/2024 Are you , , di vorced, , never , or living with a partner? 09/17/2024 Overall Financial Resource Strain (CARDIA) Answe r Date Recorded How hard is it for you to pa y for the very basics like food, housing, medical care, and heating? Not hard at all 09/17/2024 PHQ-2 Answer Date Recorded Total Score 4 09/17/2024 [facility] of Occupat ional Health - Occupational Stress Questionnaire Answer Date Recorded Do you feel stress - tense, restless, nervous, or anxious, or unable to sleep at night because your mind is troubled all the time - these days? Not at all 09/17/2024 Exercise Vital Sign Answer Date Recorde d On average, how many days pe r week do you engage in moderate to strenuous exercise (like a brisk walk)? 0 days 09/17/2024 On average, how many minutes do you engage in exercise at this level? 0 min 09/17/2024 PRAPARE - Transportation Answer Date Re corded In the past 12 months, has l ack of transportation kept you from medical appointments or from getting medications? No 09/04 In the past 12 months, has l ack of transportation kept you from meetings, work, or from getting things needed for daily living? No 09/17/2024 Housing Instability Answer Date Recorde d Are you worried or concerned that in the next two months you may not have stable housing that you own, rent or stay in as a part of a household? No 09/17/2024 Childcare Answer Date Recorded Do problems getting child ca re make it difficult for you to work or study? No 09/17/2024 Employment Answer Date Recorded Do you need help finding a l ocal career center and/or a training program? No 09/17/2024 Hunger Screening Answer Date Recorded Within the past 12 months we worried whether our food would run out before we got money to buy more. Never True 09/17/2024 Within the past 12 months th e food we bought just didn't last and we didn't have money to get more. Never True 09/17/2024 Purpose - Life Answer Date Recorded I have a purpose and direction in my life. Agree 09/17/2024 Comments No Sex and Gender Information Value [...] - Family Medicine [address] [place] [address] documented as of this encounter Procedures Procedure Name Priority Date/Time Associated Diagnosis Comments MULTIPLE LABS Routine 12/10/2024 7:52 AM EDT documented in this encounter Results * Multiple labs (12/10/2024 7:52 AM EDT) us Not In System Ref Prov MI IMAGING Final Res ult MANUALLY TRANSCRIBED RESULTS documented in this encounter Visit Diagnoses Not on filedocumented in this encounter Additional Health Concerns Assessment Noted Time PHQ-9 Depression Total Score: 4 09/17/19 25 9:48 AM EST documented as of this encounter Care Teams Pin Puller Relationship Specialty Start Date End Date Andres Broderick DO [address], [place] [address] PCP - General 10/01/24 documented as of this encounter
--- OUTSIDE RECORDS SUMMARY | 2025-01-24 15:31 | XMS_ITS | Encounter Summary ---
Author Organization [employer] tem Address [facility] [place]-[id number] [address] [place] [address] Care Team Providers Care Foreign Diplomat Name Role Phone Andres Broderick DO Primary Care Provider [phone] Reason for Visit * Reason Comments Med Refill Encounter Details Date Type Department Care Team (Late Contact Info) Description 06/16/2022 Refill [facility] - [facility] Medicine [address] [place] [phone] Andres Broderick DO [address] [place] [address] Social History Tobacco Use Types Packs/Day Years Used Date Smoking Tobacco: Never Smokeless Tobacco: Never Alcohol Use Standard Drinks/Week Comments Yes 0 (1 standard drink = 0.6 oz pur e alcohol) Social/occasional Childcare Answer Date Recorded Childcare Unknown 02/13/2019 Employment Answer Date Recorded Employment Unknown 02/13/2019 Purpose - Life Answer Date Recorded Purpose and direction in life Unknown Comments No Sex and Gender Information Value Date Recorded Sex Assigned at Not on file Legal Sex Female 11:36 AM EDT Gender Identity Not on file Sexual Orientation Not on file documented as of this encounter Plan of Treatment Upcoming Encounters Date Type Department Care Team (Late Contact Info) Description 09/18/2025 9:40 AM EST Office Visit [facility] [address] [place] [address] documented as of this encounter Visit Diagnoses Not on filedocumented in this encounter Care Teams Foreign Diplomat Relationship Specialty Start Date End Date Andres Broderick DO [address] [place] [address] PCP - General 10/01/24 documented as of this encounter
--- OUTSIDE RECORDS SUMMARY | 2025-01-24 15:31 | XMS_ITS | Clinical Summary ---
Author Organization [employer] Address [facility] [place]-[id number] [address] [place] [address] Care Team Providers Care Roll On Worker Name Role Phone SachaAndres acevedo Primary Care Provider [phone] Allergies Active Allergy Reactions Criticality Noted Date Comments Lisinopril Angioedema High 09/20/2019 Medications omeprazole (PriLOSEC) 20 mg capsule Take 1 capsule (20 mg total) by mouth every other day. Active cholecalciferol, vitamin D3, 25 mcg (1,000 unit) capsule daily. Active aspirin (ASPIR-81) 81 mg Aspir-81 1 every day Active ndihlqaxbgyb-bdqm-j olic acid (CENTRUM) 18-400 mg-mcg tablet Take 1 tablet by mouth in the morning. Active predniSONE (DELTASONE) 5 mg tablet TAKE 2 TABLETS BY MOUTH DAILY 4 Active ALPRAZolam (XANAX) 0.25 mg tabletIndications:S ituational anxiety Take 1 tablet (0.25 mg total) by mouth 2 (two) times a day as needed for anxiety. 30 tablet 1 4 Active amLODIPine (NORVASC) 10 mg tablet Take 1 tablet (10 mg total) by mouth every morning. 90 tablet 1 4 Active leflunomide (ARAVA) 10 mg tablet Take 1 tablet (10 mg total) by mouth. 5 Active rosuvastatin (CRESTOR) 20 mg tabletIndications:M ixed hyperlipidemia TAKE 1 TABLET BY MOUTH IN THE MORNING 90 tablet 1 5 Active FLUoxetine (PROzac) 20 mg capsule TAKE 1 CAPSULE BY MOUTH IN THE MORNING 90 capsule 1 5 Active Active Problems Problem Noted Date Diagnosed Date Anxiety 10/03/2024 Chronic gastritis 10/03/2024 Class 2 severe obesity due t o excess calories with serious comorbidity and body mass index (BMI) of 39.0 to 39.9 in adult 10/03/2024 Arthritis of right knee 02/01/2024 Arthritis of left knee 02/01/2024 Chronic kidney disease due to hypertension 12/21 Vitamin D deficiency 06/23/2021 Diverticulosis large intesti ne w/o perforation or abscess w/o bleeding 10/02/2019 Multiple cutaneous and mucosal venous malformati ons 10/02/2019 Rectal bleeding 09/20/2019 Polyp at cervical os 09/18/2019 Impaired fasting glucose 02/12/2016 Depressive disorder 02/11/2016 Essential hypertension 02/11/2016 Hyperlipidemia 02/11/2016 Irritable bowel syndrome 02/11/2016 Resolved Problems Problem Noted Date Diagnosed Date Resolved Date Stage 3a chronic kidney disease 04/02/2020 10/03/2024 Morbid obesity 09/18/2019 11/28/2023 Encounters Date Type Department Care Team Description 01/03/2025 Orders Only [facility] [address] [place] [address] Ref Prov, Not In System 12/18/2024 Orders Only [facility] Medicine [address] [place] [address] Ref Prov, Not In System 11/19/2024 Refill [facility] [address] [place] [address] Andres Broderick G, DO Mixed hyperlipidemia from Last 3 Months Immunizations Immunization Administration Dates Next Due COVID-19, mRNA, LNP-S, PF, 100mcg/0.5mL Dose COVID-19, mRNA, LNP-S, PF, 30mcg/0.3mL Dose 10/2020 Covid-19, Mrna, Lnp-s, Bival ent, Pf, 50mcg/0.5ml or 25mcg/0.25ml 07/21/2022 Influenza Vaccine, Quadrivalent, Adjuvanted 06/05,06/02/2020 Influenza, Injectable, Mdck, Preservative Free, Quad 07/18/2018 Pneumococcal Conjugate 13-Valent 02/13/2017 Pneumococcal Polysaccharide 07/18/2018 SARS-COV-2 (COVID-19) Vaccine, Unspecified 07/21 Td, Unspecified 01/23/2013 Family History Medical History Relation Name Comments Coronary artery disease Brother Hypertension Father Breast cancer Neg Hx Relation Name Status Comments Brother Father Social History Tobacco Use Types Packs/Day Years Used Date Smoking Tobacco: Never Smokeless Tobacco: Never Tobacco Cessation:Counseling Given: Not Answered Alcohol Use Standard Drinks/Week Comments Yes 0 (1 standard drink = 0.6 oz pur e alcohol) Social/occasional AHC Utilities Answer Date Recorded In the past 12 months has e [employer], gas, oil, or water company threatened to [...] often do you attend chur ch or mu-ism services? More than 4 times per year 09/17/2024 Do you belong to any clubs o r organizations such as gnosticism groups, unions, fraternal or athletic groups, or [...] Answer Date Recorded Total Score 4 09/17/2024 [facility] of Occupat ional Health - Occupational Stress [...] Recorded Do you need help finding a [facility] career center and/or a training program? No [...] on file Sexual Orientation Not on file Last Filed Vital Signs Vital Sign Reading Time Taken Comments Blood Pressure 100/70 10/03/2024 12:57 PM EST Pulse 98 10/03/2024 12:57 PM EST Temperature 37 C (98.6 F) 10/03/2024 12:57 PM EST Respiratory Rate 18 10/03/2024 12:57 PM EST Oxygen Saturation 94% 10/03/2024 12:57 PM EST Inhaled Oxygen Concentration - - Weight 94.2 kg (207 lb 9.6 oz) 10/03/2024 12:57 PM EST Height 154.9 cm (5' 1 ) 10/03/2024 12:57 PM EST Body Mass Index 39.23 10/03/2024 12:57 PM EST Plan of Treatment Upcoming Encounters Date Type Department Care Team (Late st Contact Info) Description 09/18/2025 9:40 AM EST Office Visit [facility] [address] [place] [address] Health Maintenance Due Date Last Done Comments Adult BMI Follow Up Plan 1969 Zoster (Shingles) Vaccine (1 of 2) 2001 DTaP,Tdap and Td Vaccines (1 - Tdap) 01/24/2013 01/23/2013 Mammogram 05/12/2025 05/12/2023, 05/0 01/2021, 08/01/2018, Additional history exists Depression Screening 09/17/2025 09/17/2024 Fall Risk Screening 09/17/2025 09/17/2024 Medicare Annual Wellness Visit 09/17/2025 09/17/2024 , 03/20/2023 Adult BMI Screening 10/03/2025 10/03/2024 Tobacco Screening 10/03/2025 10/03/2024 COVID-19 Vaccine Discontinued 07/21/2022, , 07/19/2021, Additional history exists Medical Devices Not on file Procedures Procedure Name Priority Date/Time Associated Diagnosis Comments XR ABDOMEN AP 1 VW Routine 12/10/2024 8: 03 AM EDT MULTIPLE LABS Routine 12/10/2024 7:52 AM EDT MAMM SCREENING BILATERAL W CAD Routine 05/12/2023 9:53 AM EDT Encounter for screening mammogram for malignant neoplasm of breast from Last 3 Months or Most Recently Relevant to Health Maintenance Results * X-ray abdomen ap 1 view (12/10/2024 8:03 AM EDT) Anatomical Region Laterality Modality Body, Abdomen N/A Computed Radiogr aphy us Not In System Ref Prov IMG DIAGNOSTIC IMAGING OR DERABLES Final Result * Multiple labs (12/10/2024 7:52 AM EDT) us Not In System Ref Prov SC IMAGING Final Res ult MANUALLY TRANSCRIBED RESULTS * Mammography screening bilateral with CAD (05/12/2023 9:53 AM EDT) Anatomical Region Laterality Modality Breast Bilateral Mammography 05/15/2023 12:0 7 PM EDT Narrative 05/15/2023 12:10 PM EDT MAMM SCREENING BILATERAL W CAD WITH TOMOSYNTHESIS. HISTORY: Screening. COMPARISON: 2017 2020 FINDINGS: The breasts are almost entirely fatty. No concerning clusters of microcalcifications, regions of architectural distortion, spiculated mass or skin thickening is noted to suggest the presence of malignancy. Computer-aided detection was used in the interpretation of this examination. IMPRESSION: BIRADS 1 - Negative. Normal interval follow-up in 12 months. OVERALL ASSESSMENT- A letter of notification will be sent to the patient regarding the results. Finalized by Kevin Patiño DO on 05/15/2023 12:10 PM 1 a MAMM 1 YR Procedure Note Kevin Patiño DO - 05/15/2023 MAMM SCREENING BILATERAL W CAD WITH TOMOSYNTHESIS. HISTORY: Screening. COMPARISON: 2017 2020 FINDINGS: The breasts are almost entirely fatty. No concerning clusters of microcalcifications, regions of architecturaldistortion, spiculated mass or skin thickening is noted to suggest thepresence of malignancy. Computer-aided detection was used in the interpretation of thisexamination. IMPRESSION: BIRADS 1 - Negative. Normal interval follow-up in 12 months. OVERALL ASSESSMENT- A letter of notification will be sent to the patient regarding theresults. Finalized by Kevin Patiño DO on 05/15/2023 12:10 PM 1 a MAMM 1 YR us Kate Thornton HEAD SUGAR REPROCESS OPERATOR-FINANCIAL ANALYSIS MANAGER IMG MAMMOGRAPHY ORDERABLES Final Result from Last 3 Months or Most Recently Relevant to Health Maintenance Insurance [employer] MEDICARE Care Teams Roll On Worker Relationship Specialty Start Date End Date Andres Broderick DO [address] [place] [address] PCP - General 10/01/24
--- OUTSIDE RECORDS SUMMARY | 2025-01-24 15:31 | XMS_ITS | Encounter Summary ---
Author Organization [facility] [employer] tem Address [facility] [id number] [address] [place] [address] Care Team Providers Care Career Discovery Teacher Name Role Phone SachaAndres acevedo Primary Care Provider + [phone] Encounter Details Date Type Department Care Team (Late st Contact Info) Description 01/03/2025 Orders Only [facility] - Family Medicine [address] [place] [address] Ref Prov, [place] [address] Social History Tobacco Use Types Packs/Day Years Used Date Smoking Tobacco: Never Smokeless Tobacco: Never Alcohol Use Standard Drinks/Week Comments Yes 0 (1 standard drink = 0.6 oz pur e alcohol) Social/occasional AHC Utilities Answer Date Recorded In the past 12 months has [employer], gas, oil, or water company threatened [...] often do you attend chur ch or voodoo services? More than 4 times per year 09/17/2024 Do you belong to any clubs o r organizations such as yarsani groups, unions, fraternal or athletic groups, or [...] Answer Date Recorded Total Score 4 09/17/2024 [facility] of Occupat ional Health - Occupational Stress [...] - Family Medicine [address] [place] [address] documented as of this encounter Procedures Procedure Name Priority Date/Time Associated Diagnosis Comments XR ABDOMEN AP 1 VW Routine 12/10/2024 8:03 AM EDT documented in this encounter Results * X-ray abdomen ap 1 view (12/10/2024 8:03 AM EDT) Anatomical Region Laterality Modality Body, Abdomen N/A Computed Radiogr aphy us Not In System Ref Prov IMG DIAGNOSTIC IMAGING OR DERABLES Final Result documented in this encounter Visit Diagnoses Not on filedocumented in this encounter Additional Health Concerns Assessment Noted Time PHQ-9 Depression Total Score: 4 09/17/19 9:48 AM EST documented as of this encounter Care Teams Career Discovery Teacher Relationship Specialty Start Date End Date Andres Broderick DO [address] [place] [address] PCP - General 10/01/24 documented as of this encounter
--- OUTSIDE RECORDS SUMMARY | 2025-01-24 15:31 | XMS_ITS | Encounter Summary ---
Author Organization [employer] Address [facility] [place]-[id number] [address] [place] [address] Care Team Providers Care Coconut Cooker Name Role Phone MegganRobertoAndresmartin Leyva DO Primary Care Provider + [phone] Reason for Visit * Reason Onset Date Comments Med Refill 05/23/2022 Encounter Details Date Type Department Care Team (Late Contact Info) Description 05/23/2022 Refill [facility] - Family Medicine [address] [place] [address] Carina Campo CMA Social History Tobacco Use Types Packs/Day Years [...] - Family Medicine [address] [place] [address] documented as of this encounter Visit Diagnoses Not on filedocumented in this encounter Care Teams Coconut Cooker Relationship Specialty Start Date End Date Andres Broderick DO [address] [facility], [place] [address] PCP - General 10/01/24 documented as of this encounter
--- OUTSIDE RECORDS SUMMARY | 2025-01-24 15:32 | XMS_ITS | Encounter Summary ---
Author Organization [employer] Address [facility] [place]-[id number] [address] [place] [address] Care Team Providers Care Stem Crusher Name Role Phone SachaAndres acevedo Primary Care Provider + [phone] Reason for Visit * Reason Onset Date Comments Med Refill 01/25/2024 Encounter Details Date Type Department Care Team (Late st Contact Info) Description 01/25/2024 Refill [facility] - Family Medicine [address] [place] [address] Iftikhar, Mary, DIRECTOR OF UNDERGRADUATE ADMISSIONS Situational anxiety Social History Tobacco Use Types [...] on file documented as of this encounter Miscellaneous Notes * Telephone Encounter - Mary Buitrago CMA - 01/25/2024 9:12 AM EDT Appt made documented in this encounter Plan of Treatment Upcoming Encounters Date Type Department Care Team (Late st Contact Info) Description 09/18/2025 9:40 AM EST Office Visit [facility] - [facility] Medicine [address] [place] [address] documented as of this encounter Visit Diagnoses Diagnosis Situational anxiety documented in this encounter Additional Health Concerns Assessment Noted Time PHQ-9 Depression Total Score: 2 11/28/19 24 9:07 AM EDT documented as of this encounter Care Teams Stem Crusher Relationship Specialty Start Date End Date Andres Broderick DO [address] [place] [address] PCP - General 10/01/24 documented as of this encounter
--- OUTSIDE RECORDS SUMMARY | 2025-01-24 15:32 | XMS_ITS | Encounter Summary ---
Author Organization [employer] Sys tem Address [facility] [place]-[id number] [address] [place] [address] Care Team Providers Care Special Technical Operations Officer Name Role Phone CalderonAndres castro Primary Care Provider +[phone] Encounter Details Date Type Department Care Team (Late st Contact Info) Description 02/27/2023 Telephone [facility] Internal Medicine - Family Medicine [address] [place] [address] Adia Culp CMA Social History Tobacco Use Types Packs/Day Years Used Date Smoking Tobacco: Never Smokeless Tobacco: Never Alcohol Use Standard Drinks/Week Comments Yes 0 (1 standard drink = 0.6 oz pur e alcohol) Social/occasional PHQ-2 Answer Date Recorded Total Score 1 07/18/2022 Childcare Answer Date Recorded Childcare Unknown 02/13/2019 Employment Answer Date Recorded Employment Unknown 02/13/2019 Hunger Screening Answer Date Recorded Within the past 12 months we worried whether our food would run out before we got money to buy more. Never True 07/18/2022 Within the past 12 months th e food we bought just didn't last and we didn't have money to get more. Never True 07/18/2022 Purpose - Life Answer Date Recorded Purpose and direction in life Unknown Comments No Sex and Gender Information Value Date Recorded Sex Assigned at Not on file Legal Sex Female 11:36 AM EDT Gender Identity Not on file Sexual Orientation Not on file documented as of this encounter Miscellaneous Notes * Telephone Encounter - Adia Culp CMA - 02/27/2023 4:44 PM EDT Pt called and is using [facility] can you resend prescriptions to that pharmacy? documented in this encounter Plan of Treatment Upcoming Encounters Date Type Department Care Team (Late st Contact Info) Description 09/18/2025 9:40 AM EST Office Visit [facility] - Family Medicine [address] [place] [address] documented as of this encounter Visit Diagnoses Not on filedocumented in this encounter Additional Health Concerns Assessment Noted Time PHQ-9 Depression Total Score: 1 07/18/20 22 8:40 AM EST documented as of this encounter Care Teams Special Technical Operations Officer Relationship Specialty Start Date End Date Andres Broderick DO [address] [place] [address] PCP - General 10/01/24 documented as of this encounter
--- OUTSIDE RECORDS SUMMARY | 2025-01-24 15:32 | XMS_ITS | Encounter Summary ---
Author Organization [employer] Sys [employer] Address [facility] [place]-[id number] [address] [place] [address] Care Team Providers Care Bulwark Carpenter Name Role Phone SachaAndres acevedo Primary Care Provider + [phone] Reason for Visit * Reason Comments Med Refill Encounter Details Date Type Department Care Team (Late st Contact Info) Description 02/25/2023 Refill [facility] - Family Medicine [address] [place] [address] Kate Thornton, DIGITAL SALES DIRECTOR-EMPLOYMENT MANAGER [address] [place] [address] Social History Tobacco Use Types Packs/Day Years [...] Telephone Encounter - Adia Culp CMA - 02/25/2023 2:17 PM EDT Can you please refill these until her apt? documented in this encounter Plan of Treatment Upcoming Encounters Date Type Department Care Team (Late st Contact Info) Description 09/18/2025 9:40 AM EST Office Visit [facility] - Family Medicine [address] [place] [address] documented as of this encounter Visit Diagnoses Not on filedocumented in this encounter Additional Health Concerns Assessment Noted Time PHQ-9 Depression Total Score: 1 07/18/20 22 8:40 AM EST documented as of this encounter Care Teams Bulwark Carpenter Relationship Specialty Start Date End Date Andres Broderick DO [address] [place] [address] PCP - General 10/01/24 documented as of this encounter
--- OUTSIDE RECORDS SUMMARY | 2025-01-24 15:32 | XMS_ITS | Encounter Summary ---
Author Organization [employer] Sys tem Address [facility] [place]-[id number] [address] [place] [address] Care Team Providers Care Ship Steward Name Role Phone Andres Broderick DO Primary Care Provider +[phone] Encounter Details Date Type Department Care Team (Late Contact Info) Description 07/06/2022 Orders Only [facility] Internal Medicine - Family Medicine [address] [place] [address] Kate Thornton, CHIEF DEPUTY-IT SYSTEMS ADMINISTRATOR [address] [place] [address] Encounter for preventative adult health care exam with abnormal findings (Primary Dx); Impaired fasting glucose; Mixed hyperlipidemia Social History Tobacco Use Types Packs/Day Years [...] Description 09/18/2025 9:40 AM EST Office Visit [facility] - Family Medicine [address] [place] [address] documented as of this encounter Results * Hemoglobin A1c (07/12/2022 10:39 AM EST) Hemoglobin A1C 5.4 4.4 - 6.4 % 07/12/2022 4:37 PM EST [facility] Average glucose 108 mg/dL 4:37 PM EST [facility] Blood (PLASMA) 07/12/2022 10 :39 AM EST 07/12/2022 10:42 AM EST Kate Thornton CHIEF DEPUTY-IT SYSTEMS ADMINISTRATOR LAB BLOOD ORDERABLES Final Result ZOFIA * (ABNORMAL) Comprehensive metabolic panel (07/12/2022 10:39 AM EST) Pathologist [facility] Sodium 143 134 - 146 mmol/L 07/12/2022 4:01 PM [facility] Potassium, Bld 3.9 3.5 - 5.0 mmol/L 07/12/2022 4:01 PM [facility] Chloride 107 98 - 109 mmol/L 07/12/2022 4:01 PM [facility] CO2 26 22 - 32 mmol/L 07/12/2022 4:01 PM [facility] Anion gap 10 5 - 15 mmol/L 07/12/2022 4:01 PM [facility] BUN 16 5 - 27 mg/dL 07/12/2022 4:01 PM [facility] Creatinine 0.96 0.40 - 1.00 mg/dL 07/12/2022 4:01 PM [facility] Comment:METHOD TRACEABLE TO IDMS STANDARD Glucose 101(H) 65 - 99 mg/dL 07/12/2022 4:01 PM [facility] Calcium 9.0 8.5 - 10.5 mg/dL 07/12/2022 4:01 PM [facility] Total Protein 7.2 6.0 - 8.0 g/dL 07/12/2022 4:01 PM [facility] Albumin 4.2 3.2 - 5.3 g/dL 07/12/2022 4:01 PM [facility] Alkaline Phosphatase 124 39 - 130 U/L 07/12/2022 4:01 PM [facility] AST 19 0 - 41 U/L 07/12/2022 4:01 PM [facility] ALT 14 0 - 31 U/L 07/12/2022 4:01 PM [facility] Total bilirubin 0.5 0.3 - 1.2 mg/dL 07/12/2022 4:01 PM [facility] eGFR (CKD-EPI)non-rac e dependent 63 >59 ml/min/1.7 3sq.m 07/12/2022 4:01 PM [facility] Comment: Reported eGFR is based on the CKD-EPI 2020 equation that does not use a race coefficient. Blood (PLASMA) 07/12/2022 10 :39 AM EST 07/12/2022 10:42 AM EST Kate Thornton CHIEF DEPUTY-IT SYSTEMS ADMINISTRATOR LAB BLOOD ORDERABLES Final Result ZOFIA [facility] [address] [place] [address] * Lipid profile (07/12/2022 10:39 AM EST) Cholesterol 175 150 - 200 mg/dL 07/12/2022 4:01 PM [facility] Triglycerides 106 27 - 150 mg/dL 07/12/2022 4:01 PM [facility] HDL Cholesterol 59 >39 mg/dL 4:01 PM [facility] Comment: HDL <40 mg/dL - High Risk HDL > or = 40mg/dL- Desirable HDL >60 mg/dL - Negative Risk VLDL 21 0 - 30 mg/dL 07/12/2022 4:01 PM EST [facility] LDL (calc) 95 <130 mg/dL 07/12/2022 4:01 PM [facility] Comment: LDL <100 mg/dL - Desirable LDL >160 mg/dL - High Risk Cholesterol:HDL Ratio 3.0 1.0 - 5.0 07/12/2022 4:01 PM [facility] Blood (PLASMA) 07/12/2022 10 :39 AM EST 07/12/2022 10:42 AM EST Kate Thornton CHIEF DEPUTY-IT SYSTEMS ADMINISTRATOR LAB BLOOD ORDERABLES Final Result [facility] [address], [address] [place] [address] documented in this encounter Visit Diagnoses Diagnosis Encounter for preventative adult health care exam with abnormal findings- Primary Impaired fasting glucose Mixed hyperlipidemia documented in this encounter Care Teams Ship Steward Relationship Specialty Start Date End Date Andres Broderick DO [address] [facility] [facility] [place] [address] PCP - General 10/01/24 documented as of this encounter
--- OUTSIDE RECORDS SUMMARY | 2025-01-24 15:32 | XMS_ITS | Encounter Summary ---
Author Organization [employer] Address [facility] [place]-[id number] [address] [place] [address] Care Team Providers Care Scientist Electronics Name Role Phone SachaAndres acevedo Primary Care Provider + [phone] Reason for Visit * Reason Comments Med Refill Encounter Details Date Type Department Care Team (Late st Contact Info) Description 03/01/2023 Refill [facility] Internal Medicine - Family Medicine [address] [place] [address] Kate Thornton, IRON MELTER-REMOTE SENSING TECHNICIAN [address] [place] [address] Social History Tobacco Use Types Packs/Day Years [...] - Family Medicine [address] [place] [address] documented as of this encounter Visit Diagnoses Not on filedocumented in this encounter Additional Health Concerns Assessment Noted Time PHQ-9 Depression Total Score: 1 07/18/20 22 8:40 AM EST documented as of this encounter Care Teams Scientist Electronics Relationship Specialty Start Date End Date Andres Broderick DO [address], [place] [address] PCP - General 10/01/24 documented as of this encounter
--- OUTSIDE RECORDS SUMMARY | 2025-01-24 15:32 | XMS_ITS | Encounter Summary ---
Author Organization [facility] [email or web address] Sys tem Address [facility]-[id number] [address] [place] [address] Care Team Providers Care Staffing Clerk Name Role Phone SachaAndres acevedo Primary Care Provider + [phone] Encounter Details Date Type Department Care Team (Late st Contact Info) Description 02/01/2024 Orders Only [facility] Internal Medicine - Family Medicine [address] [place] [address] Kate Thornton, DRILL SHARPENER OPERATOR-LEATHER STRIPPING MACHINE OPERATOR [address] [address] Social History Tobacco Use Types Packs/Day Years Used Date Smoking Tobacco: Never Smokeless Tobacco: Never Alcohol Use Standard Drinks/Week Comments Yes 0 (1 standard drink = 0.6 oz pur e alcohol) Social/occasional PHQ-2 Answer Date Recorded Total Score 0 02/01/2024 Childcare Answer Date Recorded Childcare Unknown 02/13/2019 Employment Answer Date Recorded Employment Unknown 02/13/2019 Hunger Screening Answer Date Recorded Within the past 12 months we worried whether our food would run out before we got money to buy more. Never True 02/01/2024 Within the past 12 months th e food we bought just didn't last and we didn't have money to get more. Never True 02/01/2024 Purpose - Life Answer Date Recorded Purpose [...] - Family Medicine [address] [place] [address] documented as of this encounter Visit Diagnoses Not on filedocumented in this encounter Additional Health Concerns Assessment Noted Time PHQ-9 Depression Total Score: 0 02/01/20 24 9:32 AM EDT documented as of this encounter Care Teams Staffing Clerk Relationship Specialty Start Date End Date Andres Broderick DO [address] [place] [address] PCP - General 10/01/24 documented as of this encounter
--- OUTSIDE RECORDS SUMMARY | 2025-01-24 15:32 | XMS_ITS | Encounter Summary ---
Author Organization [facility] [email or web address] Sys [employer] Address [facility]-[id number] [address] [place] [address] Care Team Providers Care Device Sales Consultant Name Role Phone SachaAndres acevedo Primary Care Provider [phone] Encounter Details Date Type Department Care Team (Late st Contact Info) Description 01/17/2023 Orders Only [facility] Internal Medicine - Family Medicine [address] [place] [address] Kate Thornton, WEBMETHODS ARCHITECT-AUTOMATIC BLOCKER [address] [place] [address] Social History Tobacco Use Types Packs/Day Years [...] - Family Medicine [address] [place] [address] documented as of this encounter Visit Diagnoses Not on filedocumented in this encounter Additional Health Concerns Assessment Noted Time PHQ-9 Depression Total Score: 1 07/18/20 22 8:40 AM EST documented as of this encounter Care Teams Device Sales Consultant Relationship Specialty Start Date End Date Andres Broderick DO [address], [place] [address] PCP - General 10/01/24 documented as of this encounter
--- OUTSIDE RECORDS SUMMARY | 2025-01-24 15:32 | XMS_ITS | Encounter Summary ---
Author Organization [employer] Address [facility] [place]-[id number] [address] [place] [address] Care Team Providers Care Geothermal Powerplant Supervisor Name Role Phone SachaAndres acevedo Primary Care Provider + [phone] Reason for Visit * Reason Comments Med Refill Encounter Details Date Type Department Care Team (Late st Contact Info) Description 01/17/2023 Refill [facility] Internal Medicine - Family Medicine [address] [place] [address] Kate Thornton, AUTOMATION AND CONTROLS INSTRUCTOR-INK MAKER [address] [place] [address] Mixed hyperlipidemia Social History Tobacco Use Types [...] - Family Medicine [address] [place] [address] documented as of this encounter Visit Diagnoses Diagnosis Mixed hyperlipidemia documented in this encounter Additional Health Concerns Assessment Noted Time PHQ-9 Depression Total Score: 1 07/18/20 22 8:40 AM EST documented as of this encounter Care Teams Geothermal Powerplant Supervisor Relationship Specialty Start Date End Date Andres Broderick DO [address] [place] [address] PCP - General 10/01/24 documented as of this encounter
--- OUTSIDE RECORDS SUMMARY | 2025-01-24 15:32 | XMS_ITS | Encounter Summary ---
Author Organization [facility] Sys tem Address [facility] [place]-[id number] [address] [place] [address] Care Team Providers Care Electric Range Preparer Name Role Phone SachaAndres acevedo Primary Care Provider + [phone] Encounter Details Date Type Department Care Team (Late st Contact Info) Description 09/23/2024 Orders Only [facility] - Family Medicine [address] [place] [address] Ref Prov, [place] [address] Social History Tobacco Use Types Packs/Day Years Used Date Smoking Tobacco: Never Smokeless Tobacco: Never Alcohol Use Standard Drinks/Week Comments Yes 0 (1 standard drink = 0.6 oz pur e alcohol) Social/occasional [facility] Utilities Answer Date Recorded In the past 12 months has [employer] electric, gas, oil, or water company threatened [...] often do you attend chur ch or catholic services? More than 4 times per year 09/17/2024 Do you belong to any clubs o r organizations such as lutheran groups, unions, fraternal or athletic groups, or [...] Answer Date Recorded Total Score 4 09/17/2024 [facility] - Occupational Stress [...] - Family Medicine [address] [place] [address] documented as of this encounter Procedures Procedure Name Priority Date/Time Associated Diagnosis Comments XR CHEST 2 VWS Routine 09/20/2024 11:24 AM EST documented in this encounter Results * X-ray chest 2 views (09/20/2024 11:24 AM EST) Anatomical Region Laterality Modality Body, Chest N/A Computed Radiogr aphy us Not In System Ref Prov IMG DIAGNOSTIC IMAGING OR DERABLES Final Result documented in this encounter Visit Diagnoses Not on filedocumented in this encounter Additional Health Concerns Assessment Noted Time PHQ-9 Depression Total Score: 4 09/17/19 9:48 AM EST documented as of this encounter Care Teams Electric Range Preparer Relationship Specialty Start Date End Date Andres Broderick DO [address], [place] [address] PCP - General 10/01/24 documented as of this encounter
--- OUTSIDE RECORDS SUMMARY | 2025-01-24 15:32 | XMS_ITS | Encounter Summary ---
Author Organization [facility] [employer] Address [facility] [place]-[id number] [address] [place] [address] Care Team Providers Care Edge Drummer Name Role Phone SachaAndres acevedo Primary Care Provider [phone] Encounter Details Date Type Department Care Team (Late st Contact Info) Description 01/25/2024 Orders Only [facility] Internal Medicine - Family Medicine [address] [place] [address] Kate Thornton, REVIT DRAFTER-PIVOT END POLISHER [address] [place] [address] Social History Tobacco Use Types Packs/Day Years [...] - Family Medicine [address] [place] [address] documented as of this encounter Visit Diagnoses Not on filedocumented in this encounter Additional Health Concerns Assessment Noted Time PHQ-9 Depression Total Score: 2 11/28/19 24 9:07 AM EDT documented as of this encounter Care Teams Edge Drummer Relationship Specialty Start Date End Date Andres Broderick DO [address] [place] [address] PCP - General 10/01/24 documented as of this encounter
--- OUTSIDE RECORDS SUMMARY | 2025-01-24 15:32 | XMS_ITS | Encounter Summary ---
Author Organization [employer] Sys [employer] Address [facility]-[id number] [address] [place] [address] Care Team Providers Care Foreign Student Adviser Name Role Phone CalderonAndres castro Primary Care Provider + [phone] Encounter Details Date Type Department Care Team (Late st Contact Info) Description 12/07/2023 Telephone [facility] Internal Medicine - Family Medicine [address] [place] [address] Adia Culp CMA Social History Tobacco Use [...] Telephone Encounter - Adia Culp CMA - 12/07/2023 2:23 PM EDT Pt would like to go to Dr. Coello for her arthritis * Telephone Encounter - JOSSELYN Gomez - 12/07/2023 2:23 PM EDT Please send Dr Coello, the x-ray, labs and recent office visit documented in this encounter Plan of Treatment Upcoming Encounters Date Type Department Care Team (Late st Contact Info) Description 09/18/2025 9:40 AM EST Office Visit [facility] - Family Medicine [address] [place] [address] documented as of this encounter Visit Diagnoses Not on filedocumented in this encounter Additional Health Concerns Assessment Noted Time PHQ-9 Depression Total Score: 2 11/28/19 24 9:07 AM EDT documented as of this encounter Care Teams Foreign Student Adviser Relationship Specialty Start Date End Date Andres Broderick DO [address] [place] [address] PCP - General 10/01/24 documented as of this encounter
--- OUTSIDE RECORDS SUMMARY | 2025-01-24 15:32 | XMS_ITS | Encounter Summary ---
Author Organization [employer] Address [facility] [place]-[id number] [address] [place] [address] Care Team Providers Care Leadership Coach Name Role Phone SachaAndres acevedo Primary Care Provider + [phone] Reason for Visit * Reason Comments Med Refill Encounter Details Date Type Department Care Team (Late st Contact Info) Description 08/17/2022 Refill [facility] - Family Medicine [address] [place] [address] Kate Thornton, CREAM HAULER-TELEVISION ANTENNA INSTALLER [address] [address] Social History Tobacco Use Types Packs/Day Years [...] on file Sexual Orientation Not on file COVID-19 Exposure Response Date Recorded In the last month, have you been in contact with someone who was confirmed or suspected to have Coronavirus / COVID-19? No / Unsure 07/18/2022 8:24 AM EST documented as of this encounter Plan of Treatment Upcoming Encounters Date Type Department Care Team (Late st Contact Info) Description 09/18/2025 9:40 AM EST Office Visit [facility] - Family Medicine [address] [place] [address] documented as of this encounter Visit Diagnoses Not on filedocumented in this encounter Additional Health Concerns Assessment Noted Time PHQ-9 Depression Total Score: 1 07/18/20 22 8:40 AM EST documented as of this encounter Care Teams Leadership Coach Relationship Specialty Start Date End Date Andres Broderick DO [address] [place] [address] PCP - General 10/01/24 documented as of this encounter
--- OUTSIDE RECORDS SUMMARY | 2025-01-24 15:32 | XMS_ITS | Encounter Summary ---
Author Organization [facility] Address [address] [place] [address] Care Team Providers Care Desktop Manager Name Role Phone Andres Broderick MD Primary Care Provider [phone] Encounter Details Date Type Department Care Team (Late st Contact Info) Description 06/21/2023 Abstract [facility] [address] [facility] [address] [place] [address] Dylon Magallanes MD [address] [facility] [address] [place] [address] Social History Tobacco Use Types Packs/Day Years Used Date Smoking Tobacco: Never Smokeless Tobacco: Never Alcohol Use Standard Drinks/Week Comments Yes 0 (1 standard drink = 0.6 oz pur e alcohol) AUDIT-C Answer Date Recorded Q1: How often do you have a drink containing alc ohol? Monthly or less 06/21/2023 Q2: How many drinks containi ng alcohol do you have on a typical day when you are drinking? 1 or 2 06/21/2023 Q3: How often do you have si x or more drinks on one occasion? Less than monthly 06/21/2023 Comments No Sex and Gender Information Value Date Recorded Sex Assigned at Female 02/26/2024 11:43 AM EDT Legal Sex Female 9:03 AM EDT Gender Identity Female 02/26/2024 11:43 AM EDT Sexual Orientation Straight 02/26/2024 11 :43 AM EDT documented as of this encounter Functional Status * Audit-C Score Answer Date of Assessment Author 2 06/21/2023 12:46 PM EDT Radha Alfaro MA * Question Answer Date of Assessment Author Q1: How often do you have a drink containing alcohol? Monthly or less 06/21/2023 12:46 PM EDT Preeti Alfaro MA Q2: How many drinks containing alcohol do you have on a typical day when you are drinking? 1 or 2 06/21/2023 12:46 PM EDT Preeti Alfaro MA Q3: How often do you have six or more drinks on one occasion? Less than monthly 06/21/2023 12:46 PM EDT Preeti Alfaro MA documented as of this encounter Plan of Treatment Not on file documented as of this encounter Visit Diagnoses Not on filedocumented in this encounter Care Teams Desktop Manager Relationship Specialty Start Date End Date Andres Broderick MD PCP - General Family Medicine 06/21/23 documented as of this encounter
--- OUTSIDE RECORDS SUMMARY | 2025-01-24 15:32 | XMS_ITS | Encounter Summary ---
Author Organization [employer] Sys [employer] Address [facility] [place][id number] [address] [place] [address] Care Team Providers Care Packager Name Role Phone SachaAndres acevedo Primary Care Provider [phone] Encounter Details Date Type Department Care Team (Late Contact Info) Description 07/06/2022 Telephone [facility] Internal Medicine - Family Medicine [address] [place] [address] Adia Culp CMA Social History Tobacco Use [...] Telephone Encounter - Adia Culp CMA - 07/06/2022 11:34 AM EDT Patient is coming in for wellness [facility] documented in this encounter Plan of Treatment Upcoming Encounters Date Type Department Care Team (Late st Contact Info) Description 09/18/2025 9:40 AM EST Office Visit [facility] - Family Medicine [address] [place] [address] documented as of this encounter Visit Diagnoses Not on filedocumented in this encounter Care Teams Packager Relationship Specialty Start Date End Date Andres Broderick DO [address] [place] [address] PCP - General 10/01/24 documented as of this encounter
[2025-01-24 16:17] LABS: Calcium 8.6 mg/dL (8.5-10.1); Carbon Dioxide 23.8 mmol/L (21.0-32.0); Chloride 106 mmol/L (98-107); Estimated GFR (African America 51 (>=60 mL/min/1.73m^2); Estimated GFR (Non-African Ame 42 (>=60 mL/min/1.73m^2); Phosphorus 2.8 mg/dL (2.6-4.7); Sodium 143 mmol/L (136-145); Uric Acid 4.3 mg/dL (2.6-6.0)
[2025-01-28 12:08] LABS: PTH, Intact 168 pg/mL (15-65)
== END 2025-01-24 15:29 | disposition home or self-care (01) ==
LOC: LAB 15:30
PROVIDERS: PCP Family Medicine; Visit Provider Urology
DX: N20.0 Calculus of kidney (principal)
CPT/HCPCS: 36415; 82310; 82374; 82435; 82565; 83970; 84100; 84295; 84520; 84550

== ENCOUNTER 2025-02-06 13:37 | Outpatient (OUT) | payer MEDICARE, SELFPAY ==
[2025-02-06 14:07] LABS: Basophils Absolute Auto 0.1 10^3/uL (0.0-0.1); Basophils Percent Auto 0.8 % (0.2-2.0); Eosinophils Absolute Auto 0.1 10^3/uL (0.0-0.7); Eosinophils Percent Auto 1.5 % (0.9-7.0); Hematocrit 39.4 % (36.0-48.0); Hemoglobin 12.8 g/dL (12.0-16.0); Immature Granulocytes Abs Auto 0.02 10^3/uL (0.00-0.03); Immature Granulocytes Pct Auto 0.3 % (0.0-0.5); Lymphocytes Absolute Auto 2.4 10^3/uL (1.2-3.8); Lymphocytes Percent Auto 32.8 % (20.5-60.0); Mean Corpuscular HGB Conc 32.5 g/dL (29.9-35.2); Mean Corpuscular Hemoglobin 28.2 pg (26.7-34.0); Mean Corpuscular Volume 86.8 fL (81.0-99.0); Mean Platelet Volume 10.3 fL (9.5-13.5); Monocytes Absolute Auto 0.6 10^3/uL (0.3-0.8); Monocytes Percent Auto 7.6 % (1.7-12.0); Neutrophils Absolute Auto 4.1 10^3/uL (1.4-6.5); Platelet Count 290 10^3/uL (150-450); Red Blood Count 4.54 10^6/uL (4.20-5.40); Red Cell Distribution Width 14.3 % (11.0-15.0); White Blood Count 7.2 10^3/uL (4.0-11.0)
[2025-02-06 14:29] LABS: Alanine Aminotransferase 26 U/L (14-59); Albumin Globulin Ratio 0.9; Albumin Level 3.3 g/dL (3.4-5.0); Alkaline Phosphatase 105 U/L (46-116); Anion Gap 12.2; Aspartate Amino Transferase 21 U/L (15-37); BUN Creatinine Ratio 15.5; Bilirubin Total 0.4 mg/dL (0.2-1.0); Calcium 8.7 mg/dL (8.5-10.1); Carbon Dioxide 28.3 mmol/L (21.0-32.0); Chloride 106 mmol/L (98-107); Estimated GFR (African America 55 (>=60 mL/min/1.73m^2); Estimated GFR (Non-African Ame 46 (>=60 mL/min/1.73m^2); Globulin 3.5 g/dL; Glucose 98 mg/dL (74-106); Potassium 3.5 mmol/L (3.5-5.1); Sodium 143 mmol/L (136-145); Total Protein 6.8 g/dL (6.4-8.2)
[2025-02-06 14:32] LABS: Erythrocyte Sedimentation Rate 34 mm/hr (<=30)
== END 2025-02-06 13:38 | disposition home or self-care (01) ==
LOC: LAB 13:39
PROVIDERS: PCP Family Medicine; Visit Provider Internal Medicine Rheumatology
DX: M05.79 Rheumatoid arthritis with rheumatoid factor of multiple sites without organ or systems involvement (principal); M15.0 Primary generalized (osteo)arthritis; Z79.899 Other long term (current) drug therapy
CPT/HCPCS: 36415; 80053; 85025; 85652

== ENCOUNTER 2025-04-29 13:14 | Emergency (ER) | payer MEDICARE, SELFPAY ==
[2025-04-29 13:31] VITALS: BP 142/91; PULSE 80; TEMP 37; O2SAT 97; BMI 38.7
--- NOTE | 2025-04-29 13:35 | XR_ITS ---
[place] [id number] Patient Name: AVERY GOMEZ MRN: [id number] date: 1950 Sex: F Assigned Patient Location: ER Current Patient Location: ED.MAIN Accession/Order Number: [id number] Exam Date: 04/29/2025 13:55 Report Date: 04/29/2025 14:21 At the request of: LORRIE CARBALLO DO Procedure: XR foot RT min 3V 3 views right ankle plain film COMPARISON: None HISTORY: Acute right foot pain and swelling. Fell yesterday. ACUTE FINDINGS: None DEGENERATIVE CHANGE: Unremarkable SOFT TISSUE FINDINGS: Unremarkable JOINT EFFUSION: None POSTOP CHANGES: None BONE MINERALIZATION: Adequate XR/XR ankle RT min 3V IMPRESSION: No acute findings. 3 views right foot Angulated fracture of the neck of the second metatarsal. Potential small fractures of the bases of the third and fourth proximal phalanges. Mild degeneration. Calcaneal spurring. Soft tissue swelling. IMPRESSION: Second metatarsal neck fracture. Small fracture fragments of the bases of the third and fourth proximal phalanges. Subluxation of the third and fourth metatarsophalangeal joints. Impression dictated by: Luis Eduardo Oates M.D. 04/29/2025 2:21 PM Dictation Location: [place] [address] Electronically authenticated by: [id number] Y Date: 04/29/2025 14:21
--- NOTE | 2025-04-29 13:35 | XR_ITS ---
[place] [id number] Patient Name: AVERY GOMEZ MRN: [id number] date: 1950 Sex: F Assigned Patient Location: ER Current Patient Location: ED.MAIN Accession/Order Number: [id number] Exam Date: 04/29/2025 13:55 Report Date: 04/29/2025 14:21 At the request of: LORRIE CARBALLO DO Procedure: XR foot RT min 3V 3 views right ankle plain film COMPARISON: None HISTORY: Acute right foot pain and swelling. Fell yesterday. ACUTE FINDINGS: None DEGENERATIVE CHANGE: Unremarkable SOFT TISSUE FINDINGS: Unremarkable JOINT EFFUSION: None POSTOP CHANGES: None BONE MINERALIZATION: Adequate XR/XR foot RT min 3V IMPRESSION: No acute findings. 3 views right foot Angulated fracture of the neck of the second metatarsal. Potential small fractures of the bases of the third and fourth proximal phalanges. Mild degeneration. Calcaneal spurring. Soft tissue swelling. IMPRESSION: Second metatarsal neck fracture. Small fracture fragments of the bases of the third and fourth proximal phalanges. Subluxation of the third and fourth metatarsophalangeal joints. Impression dictated by: Luis Eduardo Oates M.D. 04/29/2025 2:21 PM [facility] Electron[facility] authenticated by: [id number] Y Date: 04/29/2025 14:21
--- OUTSIDE RECORDS SUMMARY | 2025-04-29 14:07 | XMS_ITS | CCD ---
Author Organization [facility] Care Team Providers Care Pipefitter Welder Name Role Phone REQUEST, NONE LISTED Attending Unavailable REQUEST, NONE LISTED Consulting Unavailable REQUEST, NONE LISTED Admitting Unavailable SHANChanell, KATE R Primary Care Unavailable Aldo Wynn Unavailable Tanna Paige Unavailable JOSEFINA MELISSA Attending Unavailable NON STAFF Primary Care Provider UnavailMD Aldo Diop Attending Provider JENNAKATE Referring Unavailable JENNAKATEZAYRA Primary Care Unavailable NON STAFF Primary Care Provider UnavailMD Dax Elizabeth Attending Provider [phone] NON STAFF Primary Care Provider UnavailDax Elizabeth MD Attending Provider Unavailable Primary Care Provider UnavailAndres San DO Primary Care Provider SHANSKATE R Referring Unavailable KUNS, KATE R Primary Care Unavailable KUNS, KATE R Referring Unavailable KUNS, KATE R Primary Care Unavailable ANDRES BRODERICK Referring Unavailable ANDRES BRODERICK Primary Care Unavailable Shanchanell TEACHER'S ASSISTANT-HOUSE PARENTKate Primary Care Provider NON STAFF Primary Care Provider UnavailDax Elizabeth MD Attending Provider Shobha Pritchett PA-C Attending Provider [phone] Haja Fritz MD Attending Provider Andres Broderick DO Primary Care Provider ANDRES BRODERICK Primary Care Physician [phone] Shobha Pritchett Admitting Unavailable Shobha Pritchett Attending Unavailable NON STAFF Primary Care Unavailable Coello, Dax Admitting Unavailable Coello, Dax Attending Unavailable NON STAFF Primary Care Unavailable Coello, Dax Admitting Unavailable Coello, Dax Attending Unavailable Cook, Haja P Admitting Unavailable Cook, Haja P Attending Unavailable Furlong, Andres Primary Care Unavailable COOK, Haja P Attending Unavailable COOK, Haja P Admitting Unavailable COOK, Haja P Attending Unavailable COOK, Haja P Attending Unavailable COOK, Haja P Admitting Unavailable COOK, Haja P Attending Unavailable COOK, Haja P Attending Unavailable Rosa Maria Tobin Attending Unavailable COOK, Haja P Attending Unavailable COOK, Haja P Attending Unavailable Andres Broderick DO Primary Care Provider [phone] ANDRES BRODERICK Attending Unavailable GEORGE, ANDRES G Primary Care Unavailable FURMARYNG, ANDRES G Attending Unavailable FURIVETH, ANDRES G Referring Unavailable ANDRES BRODERICK G Primary Care Unavailable Allergies Allergy Classification Reported Allergen(s) Allergy Type Date of Onset Reaction(s) Facility (5 sources) Amino Acids; Translations: [LISINOPRIL] Drug Allergy 0 [facility] Repository (20 sources) Lisinopril; Translations: [lisinopril] Drug Allergy 0 Angioedema, Lip swelling (finding), Unknown (qualifier value) [facility] Work Phone: (1 source) Lisinopril Drug Allergy [address] [place] [address] Repository Medications Current Medications Medication Drug Class(es) Dates Sig (Normalized) Sig (Original) ALPRAZolam 0.25 mg oral tablet (20 sources) Benzodiazepine Start: 07-18-2022 End: 02-01-2024 take [...] (20 sources) Dihydropyridine Calcium Channel Ariana Start: 12-10-2024 amlodipine Oral, Refills(s) 0 Start Date: 12/10/24 Status: Ordered Repeat number: 1 Start: 05-11-2023 End: 02-16-2025 take 1 tablet by mouth once daily in the morning amLODIPine (NORVASC) 10 mg tablet TAKE 1 TABLET BY MOUTH EVERY MORNING 90 tablet 1 02/16/2025 Active Aspir-81 81 MG (4 sources) take 1 tablet by mouth once daily Aspir-81 81 MG 1 tablet Orally Once a day Active aspirin 81 mg chewable tablet (20 sources) Platelet Aggregation Inhibitor, Nonsteroidal Anti-inflammatory Drug Start: 12-10-2024 [facility] Aspirin 81 mg oral tablet, chewable Oral, Refills(s) 0 Start Date: 12/10/24 Status: Ordered Repeat number: 1 Start: 11-07-2023 take 1 tablet by mele th once daily Aspirin 81 mg tablet,delayed release (DR/EC) Active 81 MG PO Daily November 07, 2023 1:00am FreeTextSi tablet Orally Once a day; Note: Source Status: Taking; Provider: Tianna Carlson ( ) cephalexin 500 mg oral capsule (3 sources) Cephalosporin Antibacterial Start: 12-10-2024 cephalexin 500 mg Cap Oral, Refills(s) 0 Start Date: 12/10/24 Status: Ordered Repeat number: 1 cholecalciferol 0.025 mg oral capsule (16 sources) Vitamin D cholecalciferol, vitamin D3, 25 mcg (1,000 unit) capsule daily. Active famotidine 20 mg oral tablet (1 source) Histamine-2 Receptor Antagonist Start: 03-14-2025 take 1 tablet by mouth in the morning, then take 1 tablet by mouth at bedtime famotidine (PEPCID) 20 mg tablet Take 1 tablet (20 mg total) by mouth in the morning and 1 tablet (20 mg total) before bedtime. 60 tablet 1 03/14/2025 Active FLUoxetine 20 mg oral capsule (20 sources) Serotonin Reuptake Inhibitor Start: 11-07-2023 take 1 capsule by mouth once daily in the morning Fluoxetine 10 [...] THE MORNING 90 capsule 1 11/19/2024 Active take 1 capsule by [facility] every twenty-four hours FLUoxetine HCl 10 MG 1 capsule in the morning Orally Once a day Active take 1 capsule by [facility] once daily in the morning FLUoxetine HCl 10 MG 1 capsule in the morning Orally Once a day Active leflunomide 10 mg oral tablet (7 sources) Antirheumatic Agent Start: 09-19-2024 take 1 tablet by mouth every other day leflunomide (ARAVA) 10 mg tablet Take 1 tablet (10 mg total) by mouth every other day. 09/19/2024 Active Start: 08-21-2024 End: 10-03-2024 leflunomide (ARAVA) 20 mg ta blet Take 1 tablet (20 mg total) by mouth. 08/21/2024 10/03/2024 Discontinued (Dose adjustment) omeprazole 20 mg delayed release oral capsule (20 sources) Proton Pump Inhibitor take 1 capsule by mouth every other day omeprazole (PriLOSEC) 20 mg capsule Take 1 capsule (20 mg total) by mouth every other day. Active take 1 capsule by mouth in the m orning omeprazole (PriLOSEC) 20 mg capsule Take 1 capsule (20 mg total) by mouth in the morning. Active oxybutynin chloride 5 mg oral tablet (1 source) Cholinergic Muscarinic Antagonist Start: 12-10-2024 take 1 tablet by mouth twice daily as needed for muscle spasms Oxybutynin Chloride 5 mg tablet Active 5 MG PO Twice daily as needed for bladder spasms 14 7 December 10, 2024 12:00am predniSONE 5 mg delayed release oral tablet (15 sources) Start: 12-10-2024 predniSONE 5 m g oral delayed release tablet Oral, Refills(s) 0 Start Date: 12/10/24 Status: Ordered Repeat number: 1 Start: 12-10-2024 take 1 tablet by mele once daily Prednisone 5 mg tablet Active 5 MG PO Daily December 10, 2024 12:00am Start: 01-23-2024 predniSONE (DE LTASONE) 5 mg tablet 0.5 tablets (2.5 mg total). 01/23/2024 Active Start: 2024 take 2 tablets by mo [facility] once daily predniSONE (DELTASONE) 5 mg tablet TAKE 2 TABLETS BY MOUTH DAILY 01/23/2024 Active Start: 12-07-2023 End: 12-17-2023 take 1 tablet by mouth in the morning predniSONE (DELTASONE) 10 mg tablet Take 1 tablet (10 mg total) by mouth in the morning for 10 days. 10 tablet 0 12/07/2023 12/17/2023 Active rosuvastatin 20 mg oral capsule (20 sources) HMG-CoA Reductase Inhibitor Start: 12-10-2024 rosuvastatin 20 mg oral capsule Oral, Refills(s) 0 Start Date: 12/10/24 Status: Ordered Repeat number: 1 Start: 05-11-2023 End: 11-19-2024 take 1 tablet by mouth in the morning rosuvastatin (CRESTOR) 20 mg tablet Indications: Mixed hyperlipidemia TAKE 1 TABLET BY MOUTH IN THE MORNING 90 tablet 1 11/19/2024 Active tamsulosin hydrochloride 0.4 mg oral capsule (2 sources) alpha-Adrenergic Ariana Start: 12-23-2024 tamsu losin (FLOMAX) 0.4 mg capsule Take 1 capsule (0.4 mg total) by mouth. HASN'T STARTED , HAS QUESTIONS 12/23/2024 Active 24 hr upadacitinib 15 mg extended release oral tablet (1 source) Start: 01-02-2025 upadacitinib (RINVOQ) 15 mg ER tablet 01/02/2025 Active Completed/Discontinued Medications Medication Drug Class(es) Dates [...] IRON) tablet every other day. 0 Active vhdoraadeodl-uxyc-tndal acid (CENTRUM) 18-400 mg-mcg tablet (15 sources) End: 03-14-2025 take 1 tablet by mouth in the morning gkpwebtjerqa-ndlv-qdzen acid (CENTRUM) 18-400 mg-mcg tablet Take 1 tablet by mouth in the morning. 03/14/2025 Discontinued (Therapy completed) take 1 tablet by mele th in the morning wcjrfalkurzd-ajyi-bqzss acid (CENTRUM) 1 8-400 mg-mcg tablet Take 1 tablet by mouth in the morning. Active take 1 tablet by mele th in the morning jlssyqeetees-mkwd-eloqd acid (CENTRUM) 1 8-400 mg-mcg tablet Take 1 tablet by mouth in the morning. 0 Active traMADol hydrochloride 50 mg oral tablet (10 sources) Opioid Agonist Start: 08-17-2021 End: 11-07-2023 take 1 tablet by mouth four times daily as needed for pain Tramadol (Ultram) 50 mg tablet Discontinued 50 MG PO Four times daily as needed for pain 12 August 17, 2021 1:00am November 07, [...] Date Documented Da te Episodic/Chronic Anxiety disorders (8 sources) Anxiety; Translations: [Anxiety disorder, unspecified] Onset: 10-03-2024 10-03-2024 Chronic Biliary tract disease (2 sources) Cholelithiasis without obstruction; Translations: [Calculus of gallbladder without cholecystitis without obstruction] 03-14-2025 Episodic Calculus of urinary tract (2 sources) Kidney stone 12-10-2024 Episodic Cardiac and circulatory congenital anomalies (16 sources) 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; Translations: [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] Onset: 10-02-2019 10-02-2019 Chronic Chronic kidney disease (19 sources) Chronic kidney disease stage 3A ; Translations: [Stage 3a chronic kidney disease] Onset: 04-02-2020 Resolved: 10-03-2024 07-18-2022 Chronic Chronic kidney disease (2 sources) Chronic kidney disease; Translations: [Chronic kidney disease, stage 3a] Onset: 07-18-2022 Disorders of lipid metabolism (20 sources) Hyperlipidemia; Translations: [Hyperlipidemia, unspecified] Onset: 02-11-2016 07-06-2022 Chronic Diverticulosis and diverticulitis (16 sources) Diverticulosis of large intestine; Translations: [Diverticulosis of large intestine without perforation or abscess without bleeding] Onset: 10-02-2019 10-02-2019 Chronic Essential hypertension (19 sources) Essential hypertension; Translations: [Essential (primary) hypertension] Onset: 02-11-2016 07-06-2022 Chronic Gastritis and duodenitis (8 sources) Chronic gastritis; Translations: [Unspecified chronic gastritis without bleeding] Onset: 10-03-2024 10-03-2024 Chronic Hypertension with complications and secondary hypertension (20 sources) Chronic kidney disease due to hypertension; [...] knee] Chronic Joint disorders and dislocations; trauma-related (5 sources) Acute meniscal tear, medial; Translations: [Other tear of medial meniscus, current injury, right knee, initial encounter] 11-03-2023 Episodic Mood disorders (17 sources) Depressive disorder; Translations: [Depressive disorder] Onset: 02-11-2016 07-06-2022 Chronic Nutritional deficiencies (17 sources) Vitamin D deficiency; Translations: [Vitamin D deficiency, unspecified] Onset: 06-23-2021 07-18-2022 Chronic Osteoarthritis (20 sources) Arthritis of left knee; Translations: [Unilateral primary osteoarthritis, left knee] Onset: 08-19-2021 Resolved: 09-28-2021 Chronic Other diseases of kidney and ureters (1 source) Hydronephrosis with renal and ureteral calculous obstruction; Translations: [Hydronephrosis with renal and ureteral calculous obstruction] Onset: 12-10-2024 Episodic Other gastrointestinal disorders (16 sources) Irritable bowel syndrome; Translations: [Irritable bowel syndrome without diarrhea] Onset: 02-11-2016 07-06-2022 Chronic Other non-epithelial cancer of skin (6 sources) Basal cell carcinoma of scalp; Translations: [Basal cell carcinoma of scalp] 12-10-2024 Episodic Other non-traumatic joint disorders (1 source) Polyarthritis, unspecified; Translations: [Polyarthritis, unspecified] Onset: 01-23-2024 Chronic Other non-traumatic joint disorders (1 source) Pain in right knee Episodic Other nutritional; endocrine; and metabolic disorders (7 sources) Severe obesity; Translations: [Class 2 severe obesity due to excess calories with serious comorbidity and body mass index (BMI) of 39.0 to 39.9 in adult ([facility])] Onset: 10-03-2024 10-03-2024 Chronic Otitis media and related conditions (1 source) Otitis media, unspecified, bilateral Episodic Rheumatoid arthritis and related disease (4 sources) Rheumatoid arthritis, unspecified; Translations: [Rheumatoid arthritis] Onset: 09-18-2024 03-14-2025 Chronic Screening and history of mental health and substance abuse codes (1 source) Patient encounter status; Translations: [Encounter for screening for depression] 09-25-2024 Episodic Sprains and strains (6 sources) Sprain of knee; Translations: [Sprain of unspecified site of left knee, initial encounter] 08-16-2023 Episodic Comment on above: Problem List clean-u p per request of Phys. EHR Cmte Thyroid disorders (1 source) Hypothyroidism Onset: 10-03-2024 Chronic Unclassified (2 sources) Obstructive hydronephrosis 12-10-2024 Unclassified (1 source) MAW Onset: 09-17-2024 Past or Other Problems Problem Classification Problem Date Documented Da te Episodic/Chronic Cardiac dysrhythmias (2 sources) Palpitations; Translations: [Palpitations] Onset: 11-28-2023 11-28-2023 Episodic Diabetes mellitus without complication (19 sources) Impaired fasting glycemia; Translations: [Impaired fasting glucose] Onset: 02-12-2016 07-06-2022 Episodic Gastrointestinal hemorrhage (16 sources) Rectal hemorrhage; Translations: [Hemorrhage of anus and rectum] Onset: 09-20-2019 10-02-2019 Episodic Mood disorders (16 sources) Mood disorders Onset: 09-17-2024 Resolved: 03-14-2025 09-17-2024 Other female genital disorders (16 sources) Polyp at cervical os; Translations: [Polyp of cervix uteri] Onset: 09-18-2019 07-06-2022 Episodic Other non-traumatic joint disorders (2 sources) Pain in left knee Onset: 08-19-2021 Resolved: 09-28-2021 Episodic Other non-traumatic joint disorders (2 sources) Effusion, unspecified joint; Translations: [Effusion, unspecified joint] Onset: 11-28-2023 Episodic Other non-traumatic joint disorders (2 sources) Effusion of joint of multiple sites; Translations: [Effusion, unspecified joint] 11-28-2023 Episodic Other nutritional; endocrine; and metabolic disorders (16 sources) Morbid obesity; Translations: [Morbid (severe) obesity due to excess calories] Onset: 09-18-2019 Resolved: 11-28-2023 11-28-2023 Chronic Unclassified (1 source) Onset: 03-14-2025 03-14-2025 Results Test Name Value Interpretation Reference Range Facility COMPREHENSIVE METABOLIC PANE Bijan 03-14-2025 Albumin [Mass/Vol] 4.2 g/dL Normal 3.2-5.3 [facility] Comment on above: Performed By: #### C MP #### [facility] ([facility]) [address] [place] [address] VIR ALP [Catalytic activity/Vol] 91 U/L Normal 39-130 [facility] Comment on above: Performed By: #### C MP #### [facility] ([facility]) [address] [place] [address] VIR ALT [Catalytic activity/Vol] 16 U/L Normal <=31 [facility] Comment on above: Performed By: #### C MP #### [facility] ([facility]) [address] [place] [address] VIR Anion gap [Moles/Vol] 11 mmol/L Normal 5-15 [facility] Comment on above: Performed By: #### C MP #### [facility] ([facility]) [address] [place] [address] VIR AST [Catalytic activity/Vol] 22 U/L Normal <=41 [facility] Comment on above: Performed By: #### C MP #### [facility] ([facility]) [address] [place] [address] VIR Bilirubin [Mass/Vol] 0.6 mg/dL Normal 0.3-1.2 [facility] Comment on above: Performed By: #### C MP #### [facility] ([facility]) [address] [place] [address] VIR Calcium [Mass/Vol] 9.2 mg/dL Normal 8.5-10.5 [facility] Comment on above: Performed By: #### C MP #### [facility] ([facility]) [address] [place] [address] VIR Chloride [Moles/Vol] 105 mmol/L Normal 98-109 [facility] Comment on above: Performed By: #### C MP #### [facility] ([facility]) [address] [place] [address] VIR CO2 [Moles/Vol] 25 mmol/L Normal 22-32 [facility] Comment on above: Performed By: #### C MP #### [facility] ([facility]) [address] [place] [address] VIR Creatinine [Mass/Vol] 1.17 mg/dL High 0.40-1.00 [facility] Comment on above: Result Comment: METH OD TRACEABLE TO IDMS STANDARD Performed By: #### C MP #### [facility] ([facility]) [address] [place] [address] VIR GFR/1.73 sq M.predicted among non-blacks MDRD (S/P/Bld) [Vol rate/Area] 49 mL/min/{1.73_m2} Low >=60 [facility] Comment on above: Result Comment: Repo rted eGFR is based on the CKD-EPI 2020 equation that does not use a race coefficient. Performed By: #### C MP #### [facility] ([facility]) [address] [place] [address] VIR Glucose [Mass/Vol] 99 mg/dL Normal 65-99 [facility] Comment on above: Performed By: #### C MP #### [facility] ([facility]) [address] [place] [address] VIR Potassium [Moles/Vol] 3.8 mmol/L Normal 3.5-5.0 [facility] Comment on above: Performed By: #### C MP #### [facility] ([facility]) [address] [place] [address] VIR Protein [Mass/Vol] 6.8 g/dL Normal 6.0-8.0 [facility] Comment on above: Performed By: #### C MP #### [facility] ([facility]) [address] [place] [address] VIR Sodium [Moles/Vol] 141 mmol/L Normal 134-146 [facility] Comment on above: Performed By: #### C MP #### [facility] ([facility]) [address] [place] [address] VIR Urea nitrogen [Mass/Vol] 17 mg/dL Normal 5-27 [facility] Comment on above: Performed By: #### C MP #### [facility] ([facility]) [address] [place] [address] VIR LIPID PROFILEon 03-14-2025 Cholesterol [Mass/Vol] 190 mg/dL Normal 150-200 [facility] Comment on above: Performed By: #### L IPR #### [facility] ([facility]) [address] [place] [address] VIR Cholesterol in HDL [Mass/Vol] 78 mg/dL Normal >39 [facility] Comment on above: Result Comment: HDL <40 mg/dL - High Risk HDL > or = 40mg/dL- Desirable HDL >60 mg/dL - Negative Risk Performed By: #### L IPR #### [facility] ([facility]) [address] [place] [address] VIR Cholesterol in LDL [Mass/Vol] 93 mg/dL Normal <130 [facility] Comment on above: Result Comment: LDL <100 mg/dL - Desirable LDL >160 mg/dL - High Risk Performed By: #### L IPR #### [facility] ([facility]) [address] [place] [address] VIR CHOLESTEROL:HDL 2.4 Normal 1.0-5.0 [facility] Comment on above: Performed By: #### L IPR #### [facility] ([facility]) [address] [place] [address] VIR Triglyceride [Mass/Vol] 97 mg/dL Normal 27-150 [facility] Comment on above: Performed By: #### L IPR #### [facility] ([facility]) [address] [place] [address] VIR VERY LOW LIPOPROTEIN 19 mg/dL Normal 0-30 [facility] Comment on above: Performed By: #### L IPR #### [facility] ([facility]) [address] [place] [address] VIR POCT urinalysis dipstick onl yOrdered By: Rahel Gallagher on 03-14-2025 External Poct Urine Bilirubin Negative [facility] External Poct Urine Blood Negative [facility] External Poct Urine Character clear [facility] External Poct Urine Color yellow [facility] External Poct Urine Glucose Negative [facility] External Poct Urine Ketones Negative [facility] External Poct Urine Leukocyte Esterase Negative [facility] External Poct Urine Nitrite Negative [facility] External Poct Urine Ph 7 [facility] External Poct Urine Protein Negative [facility] External Poct Urine Specific [place] 1.015 [facility] External Poct Urine Urobilinogen 0.2 [facility] Ambulatory Visit Summaryon 0 12-31-2024 Ambulatory Visit Summary Ambulatory Visit Summary LISA GOMEZ :1950 Visit Date:12/31/2024 Ambulatory Visit Instructions Your Diagnosis Ureteral stone with hydronephrosis Kidney stones Your Care Team Attending Physician - Haja FRITZ MD Primary Care Physician - ANDRES BRODERICK DO This Is Your Medications List Contact prescribing physician if questions or concerns amlodipine aspirin (Rabia Wetzel Engineerings Aspirin 81 mg oral tablet, chewable) cephalexin [...] Haja FRITZ MD Where: [facility] [address] [place] [address]- You Need to Schedule the Following Appointments Follow Up with Haja FRITZ MD, URL When: Where: [address] [address]- Medications What How Much When Instructions Unchanged amlodipine By Mouth Contact prescribing physician if questions or concerns Unchanged aspirin ([employer] Aspirin 81 mg oral tablet, chewable) By [...] may eat and drink normally. ??? Take bbsh-icm-qbfytoz and prescription medicines only as told by your health care provider. ??? Let your health care provider know about any medicines that you are taking, including oajh-fpi-ymiyouh medicines, vitamins, herbs, and supplements. ??? Choose [...] specimen as close as possible to the e (more content not included)... Normal [facility] Urology Office/Clinic Noteon 12-31-2024 Urology Office/Clinic Note Urology Office/Clinic Note Chief Complaint f/u cysto [...] pt to have CT done tomorrow at [place]. History of Present Illness Tests reviewed: UA, [...] calculous obstruction) CT AP wo con 12/03/24 [facility] - Mild R hydro secondary to a 3 mm and a 6 mm stone in the distal R ureter. No L hydro. [place] [facility] [place]. Personal review: stable ureteral stones. S/p cysto, R rgp, urs, laser litho, basket, string stent placement 12/10/24. Stone analysis - CaOx mono, 20% CaOx di. KUB 12[place]23[place]24 [facility] [place] UA neg. Removed string stent Monday after procedure. Develop R flank pain a couple days later, was certain she was passing a stone but KUB was neg. Per exam today, her pain is not over her kidney, it is musculoskeletal. Slight pain with movement, again this indicates musculoskeletal. Pt already has CT scheduled tomorrow at [facility], will have pt proceed with CT to definitively show if stone is passing or not. Discussed metabolic workup including 24 hour urine and blood work for stone prevention. Follow up 3 mos with metabolic workup or sooner if needed. Pt understands and agrees with plan. -Proceed with CT at [facility] tomorrow (recall placed) 2. Kidney stones (N20.0: Calculus of kidney) Distant hx of renal stones require laser litho by Dr Abraham. CT AP wo con 12/03/24 TB - A few nonobstructing subcentimeter BL renal stones. [place] [facility] [place]. Renal stones [...] once completed. Follow-up With When Contact Information Haja FRITZ MD, URL [address] [address]- Additional Instructions: 3 mos with metabolic workup Patient Education 24-Hour Urine Collection I, Krissy Ceron, personally scribed for Dr. Fritz on 12/31/2024 13:55:16. . Documentation recorded by the scribe, Krissy Ceron, accurately reflects the services(s) I performed and decisions made by me. Authenticated by Dr. Fritz on 12/31/2024 13:58:47. Portions of this record may have been created with voice recognition artificial intelligence software, specifically [employer], [employer] and or [email or web address]. Substitutions may have occurred due to the inherent limitations of voice recognition and artificial intelligence software. Problem List/Past Medical History Ongoing Basal cell carcinoma of skin (skin cancer) Kidney stones Ureteral stone with hydronephrosis Historical No qualifying data Procedure/Surgical History Colonoscopy, Lithotripsy using laser, Removal of mol (more content not included)... Normal [facility] Comment on above: Result Comment: Elec tronically Signed By: Haja FRITZ MD\.br\Date and Time Signed: 12/31/24 13:59 EDT\.br\Electronically Co-Signed By: Krissy Ceron\.br\Date and Time Co-Signed: 12/31/24 13:55 EDT XR Abdomen 1 Viewon 12-25-19 XR Abdomen 1 View Exam Date/Time: 12/23/2024 14:15 EDT Reason for [...] Chris DO Transcribed by: JUN Technologist: AKASH Saunders [facility] XR Abdomen 1 Viewon 12-12-19 XR Abdomen 1 View Exam Date/Time: 12/10/2024 09:36 EDT Reason for [...] Jimenez MD Transcribed by: JUN Technologist: JOHN Saunders [facility] Ambulatory Visit Summaryon 0 12-10-2024 Ambulatory Visit Summary Ambulatory Visit Summary LISA GOMEZ :1950 Visit Date:12/10/2024 Ambulatory Visit Instructions Your Diagnosis Ureteral stone with hydronephrosis Kidney stones Your Care Team Attending Physician - Haja FRITZ MD Primary Care Physician - ANDRES BRODERICK DO This Is Your Medications List Contact [...] Following Appointments Follow Up with LAM JUAREZ, HERNAN Chandra When: Where: [address] [address]- Medications What How Much When Instructions [...] these instructions at home: Medicines ??? Take hklt-drm-ptdqvvp and prescription medicines only as told by [...] keep your pee pale yellow. ? Take tmuj-lpy-boomure or prescription medicines. ? Eat foods that [...] peeing. ??? You have pain that gets wo (more content not included)... Normal [facility] Basic Metabolic Panelon 04-0 Anion gap [Moles/Vol] 13.3 mmol/L Normal 6.0-15.0 [facility] Comment on above: Performed By: #### H BCAB, HBSAG, HBSAB, QUANT TB, HCV RX PCR #### [facility] , Calcium [Mass/Vol] 8.8 mg/dL Normal 8.6-10.3 [facility] Comment on above: Performed By: #### H BCAB, HBSAG, HBSAB, QUANT TB, HCV RX PCR #### [facility] , Chloride [Moles/Vol] 106 mmol/L Normal 98-107 [facility] Comment on above: Performed By: #### H BCAB, HBSAG, HBSAB, QUANT TB, HCV RX PCR #### [facility] , CO2 [Moles/Vol] 23.6 mmol/L Normal 21.0-31.0 [facility] Comment on above: Performed By: #### H BCAB, HBSAG, HBSAB, QUANT TB, HCV RX PCR #### [facility] , Creatinine [Mass/Vol] 1.15 mg/dL Normal 0.60-1.20 [facility] Comment on above: Performed By: #### H BCAB, HBSAG, HBSAB, QUANT TB, HCV RX PCR #### [facility] , Creatinine Clr Calc Pharmacy 44.48 Normal [facility] Comment on above: Result Comment: PERF ORMED BY: [address] [address] PATHOLOGIST MANAGER PROP[employer]AL HASMUKH COLMENARES M.D. Performed By: #### H BCAB, HBSAG, HBSAB, QUANT TB, HCV RX PCR #### [facility] , Estimated GFR 50.301 mL/Min Normal [facility] Comment on above: Performed By: #### H BCAB, HBSAG, HBSAB, QUANT TB, HCV RX PCR #### [facility] , Glucose [Mass/Vol] 122 mg/dL High 70-100 [facility] Comment on above: Result Comment: [place] Glucose Reference Range is dependent on time and content of last meal. Glucose of more than 200 mg/dL in a nonstressed, ambulatory subject supports the diagnosis of Diabetes Mellitus. ADA recommended reference range Performed By: #### H BCAB, HBSAG, HBSAB, QUANT TB, HCV RX PCR #### [facility] , Potassium [Moles/Vol] 3.9 mmol/L Normal 3.5-5.1 [facility] Comment on above: Performed By: #### H BCAB, HBSAG, HBSAB, QUANT TB, HCV RX PCR #### [facility] , Sodium [Moles/Vol] 139 mmol/L Normal 136-145 [facility] Comment on above: Performed By: #### H BCAB, HBSAG, HBSAB, QUANT TB, HCV RX PCR #### [facility] , Urea nitrogen [Mass/Vol] 22 mg/dL Normal 7-25 [facility] Comment on above: Performed By: #### H BCAB, HBSAG, HBSAB, QUANT TB, HCV RX PCR #### [facility] , Basophils Auto (Bld) [#/Vol] Ordered By: Haja Fritz on 12-10-2024 Basophils (Bld) [#/Vol] Automated basophil count 0.0-0.2 [facility] Basophils/100 WBC Auto (Bld) Ordered By: Haja Fritz on 12-10-2024 Basophils/100 WBC (Bld) Automated basophil % . [facility] Calcium [Mass/volume] in Ser um or PlasmaOrdered By: Haja Fritz on 12-10-2024 Calcium [Mass/Vol] Calcium [Mass/volume ] in Serum or Plasma 8.6-10.3 [facility] Carbon dioxide, total [Moles /volume] in Serum or PlasmaOrdered By: Haja Fritz on 12-10-2024 CO2 [Moles/Vol] Carbon dioxide, tota l [Moles/volume] in Serum or Plasma 21.0-31.0 [facility] Chloride [Moles/volume] in S beatris or PlasmaOrdered By: Haja Fritz on 12-10-2024 Chloride [Moles/Vol] Chloride [Moles/vol ume] in Serum or Plasma 98-107 [facility] Complete Blood Count Auto Di ffon 12-10-2024 Basophils (Bld) [#/Vol] 0.0 10*3/uL Normal 0.0-0.2 [facility] Comment on above: Result Comment: PERF ORMED BY: [facility] [address] [address] PATHOLOGIST MANAGER [employer] HASMUKH COLMENARES M.D. Performed By: #### H BCAB, HBSAG, HBSAB, QUANT TB, HCV RX PCR #### [facility] , Basophils/100 WBC (Bld) 0.6 % Normal . [facility] Comment on above: Performed By: #### H BCAB, HBSAG, HBSAB, QUANT TB, HCV RX PCR #### [facility] , Eosinophils (Bld) [#/Vol] 0.0 10*3/uL Normal 0.0-0.45 [facility] Comment on above: Performed By: #### H BCAB, HBSAG, HBSAB, QUANT TB, HCV RX PCR #### [facility] , Eosinophils/100 WBC (Bld) 0.3 % Normal . [facility] Comment on above: Performed By: #### H BCAB, HBSAG, HBSAB, QUANT TB, HCV RX PCR #### [facility] , Erythrocyte distribution width (RBC) [Ratio] 14.5 % Normal 11.9-15.3 [facility] Comment on above: Performed By: #### H BCAB, HBSAG, HBSAB, QUANT TB, HCV RX PCR #### [facility] , Hematocrit (Bld) [Volume fraction] 40.4 % Normal 34.0-46.4 [facility] Comment on above: Performed By: #### H BCAB, HBSAG, HBSAB, QUANT TB, HCV RX PCR #### [facility] , Hemoglobin (Bld) [Mass/Vol] 13.3 g/dL Normal 11.8-15.4 [facility] Comment on above: Performed By: #### H BCAB, HBSAG, HBSAB, QUANT TB, HCV RX PCR #### [facility] , Lymphocytes (Bld) [#/Vol] 0.8 10*3/uL Low 1.00-4.8 [facility] Comment on above: Performed By: #### H BCAB, HBSAG, HBSAB, QUANT TB, HCV RX PCR #### [facility] , Lymphocytes/100 WBC (Bld) 12.4 % Normal . [facility] Comment on above: Performed By: #### H BCAB, HBSAG, HBSAB, QUANT TB, HCV RX PCR #### [facility] , MCH (RBC) [Entitic mass] 28.0 pg Normal 24.7-34.3 [facility] Comment on above: Performed By: #### H BCAB, HBSAG, HBSAB, QUANT TB, HCV RX PCR #### [facility] , MCV (RBC) [Entitic vol] 84.9 fL Normal 80-100 [facility] Comment on above: Performed By: #### H BCAB, HBSAG, HBSAB, QUANT TB, HCV RX PCR #### [facility] , Mean Corpuscular HGB Conc 33.0 g/dL Normal 32.0-35.0 [facility] Comment on above: Performed By: #### H BCAB, HBSAG, HBSAB, QUANT TB, HCV RX PCR #### [facility] , Monocytes (Bld) [#/Vol] 0.4 10*3/uL Normal 0.0-0.8 [facility] Comment on above: Performed By: #### H BCAB, HBSAG, HBSAB, QUANT TB, HCV RX PCR #### [facility] , Monocytes/100 WBC (Bld) 5.7 % Normal . [facility] Comment on above: Performed By: #### H BCAB, HBSAG, HBSAB, QUANT TB, HCV RX PCR #### [facility] , Neutrophils (Bld) [#/Vol] 5.4 10*3/uL Normal 1.8-7.7 [facility] Comment on above: Performed By: #### H BCAB, HBSAG, HBSAB, QUANT TB, HCV RX PCR #### [facility] , Neutrophils/100 WBC (Bld) 81.0 % Normal . [facility] Comment on above: Performed By: #### H BCAB, HBSAG, HBSAB, QUANT TB, HCV RX PCR #### [facility] , NRBC% 0.1 /100{WBC} Normal 0-0.5 [facility] Comment on above: Performed By: #### H BCAB, HBSAG, HBSAB, QUANT TB, HCV RX PCR #### [facility] , Platelet mean volume (Bld) [Entitic vol] 8.1 fL Normal 6.3-10.7 [facility] Comment on above: Performed By: #### H BCAB, HBSAG, HBSAB, QUANT TB, HCV RX PCR #### [facility] , Platelets (Bld) [#/Vol] 353 10*3/uL Normal 150-450 [facility] Comment on above: Performed By: #### H BCAB, HBSAG, HBSAB, QUANT TB, HCV RX PCR #### [facility] , RBC (Bld) [#/Vol] 4.76 10*6/uL Normal 3.60-5.[address] [facility] Comment on above: Performed By: #### H BCAB, HBSAG, HBSAB, QUANT TB, HCV RX PCR #### [facility] , WBC (Bld) [#/Vol] 6.7 10*3/uL Normal 3.8-11.6 [facility] Comment on above: Performed By: #### H BCAB, HBSAG, HBSAB, QUANT TB, HCV RX PCR #### [facility] , Creatinine [Mass/volume] in Serum or PlasmaOrdered By: Haja Fritz on 12-10-2024 Creatinine [Mass/Vol] Creatinine [Mass/v olume] in Serum or Plasma 0.60-1.20 [facility] ECG 12 lead ECGon 12-10-2024 ECG 12 lead ECG [facility] [place] [address] Electrocardiograph Report Signed Patient: Lisa Gomez MR#: [id number] 5 : 1950 Acct:[id number] Age/Sex: 74 / F ADM Date: 12/10/24 Loc: [place] Room: Type: [facility] Attending Dr: Haja Fritz MD Ordering Provider: [...] no longer present Confirmed by Rick Roche ([id number]) on 12/11/2024 10:55:19 AM Referred By: Electronically Signed By: Rick Roche Transcribed By: MUS Signed By Rick Roche MD 12/11/24 1055 Normal [facility] Eosinophils Auto (Bld) [#/Vo l]Ordered By: Haja Fritz on 12-10-2024 Eosinophils (Bld) [#/Vol] Automated eosinophil count 0.0-0.45 [facility] Eosinophils/100 WBC Auto (Bl d)Ordered By: Haja Fritz on 12-10-2024 Eosinophils/100 WBC (Bld) Automated eosinophil % . [facility] Erythrocyte distribution wid th Auto (RBC) [Ratio]Ordered By: Haja Fritz on 12-10-2024 Erythrocyte distribution width (RBC) [Ratio] Erythrocyte distribution width [Ratio] by Automated count 11.9-15.3 [facility] Glucose [Mass/volume] in Ser um or PlasmaOrdered By: Haja Fritz on 12-10-2024 Glucose [Mass/Vol] Glucose [Mass/volume ] in Serum or Plasma High 70-100 [facility] Comment on above: ADA recommended refe rence rangeRandom Glucose Reference Range is dependent on time and content of last meal. Glucose of more than 200 mg/dL in a nonstressed, ambulatory subject supports the diagnosis of Diabetes Mellitus. Hematocrit Auto (Bld) [Volum e fraction]Ordered By: Haja Fritz on 12-10-2024 Hematocrit (Bld) [Volume fraction] Hematocrit [Volume Fraction] of Blood by Automated count 34.0-46.4 [facility] Hemoglobin [Mass/volume] in BloodOrdered By: Haja Fritz on 12-10-2024 Hemoglobin (Bld) [Mass/Vol] Hemoglobin [Mass/volume] in Blood 11.8-15.4 [facility] INR in Platelet poor plasma by Coagulation assayOrdered By: Haja Frtiz on 12-10-2024 INR Coag (PPP) [Relative time] INR in Platelet poor plasma by Coagulation assay [facility] Comment on above: INR Therapeutic Rang e A) Pre- and Peroperative OAT started two weeks before surgery. NOT HIP SURGERY: 1.5 - 2.5 HIP SURGERY: 2 - 3B) Primary and secondary prevention of venous THROMBOSIS: 2 - 3C) Active venous thrombosis, pulmonary embolismand prevention of recurrent venous thrombosis: 2 - 3D) Prevention of arterial thromboembolismincluding patients with mechanical heart valves: 3 - 4.5 Bijan 12-10-2024 L ------ Specimen: [id number] Received: 12/10/24 Status: TRE Amor Num: [id number] Spec Type: Surgical Subm Dr: Haja Fritz MD Tissues: A Gross Only (R URETERAL STONES) Procedures: Level 1 Gross Age/ Patient Sex Location Account Attending Physician Lisa Gomez 74/F [place] [id number] Haja Fritz MD SPEC NUM: [id number] RECD: 12/10/24 STATUS: TRE AMOR NUM: [id number] ALIS: 12/10/[address] [facility] DR: Haja Fritz MD ENTERED: 12/10/[address] [facility] [address]: [place] TYPE: Surgical DEPT: S ENTERED BY: [id number] RECV BY: [id number] ORDERED: Level 1 Gross ORDERED: Level 1 [...] greatest dimension. [facility] GROSS ONLY-J Microscopic Description Not provided Specimen: Received: 12/10/24 Status: TRE Amor Num: [id number] Spec Type: Surgical Subm Dr: Haja Fritz MD Tissues: A Gross Only (R URETERAL STONES) Procedures: Level 1 Gross Patient: Lisa Gomez [id number] (Continued) Specimen: Received: 12/10/24 (Continued) Signed (signature on file) Aurelio_Aurelio Gibbons MD 12/13/24 1616 Specimen: Received: 12/10/24 Status: TRE Amor Num: [id number] Spec Type: Surgical Subm Dr: Haja Fritz MD Tissues: A Gross Only (R URETERAL STONES) Procedures: Level 1 Gross Patient: Lisa Gomez [id number] (Continued) Specimen: Received: 12/10/24 (Continued) CPT Codes 93723 Specimen: Received: 12/10/24 Status: TRE Amor Num: [id number] Spec Type: Surgical Subm Dr: Haja Fritz MD Tissues: A Gross Only (R URETERAL STONES) Procedures: Level 1 Gross Patient: Lisa Gomez [id number] (Continued) Signed (signature on file) Jesse Gibbons MD 12/13/24 1616 Normal [facility] Leukocytes [#/volume] correc luis alfredo for nucleated erythrocytes in Blood by Automated counOrdered By: Haja Fritz on 12-10-2024 WBC corrected for nucl RBC Auto (Bld) [#/Vol] Leukocytes [#/volume] corrected for nucleated erythrocytes in Blood by Automated coun 3.8-11.6 [facility] Lymphocytes Auto (Bld) [#/Vo l]Ordered By: Haja Fritz on 12-10-2024 Lymphocytes (Bld) [#/Vol] Lymphocytes [#/volume] in Blood by Automated count Low 1.00-4.8 [facility] Lymphocytes/100 WBC Auto (Bl d)Ordered By: Haja Fritz on 12-10-2024 Lymphocytes/100 WBC (Bld) Lymphocytes/100 leukocytes in Blood by Automated count . [facility] MCH Auto (RBC) [Entitic mass ]Ordered By: Haja Fritz on 12-10-2024 MCH (RBC) [Entitic mass] MCH [Entitic mass] by Automated count 24.7-34.3 [facility] MCHC Auto (RBC) [Mass/Vol]Or dered By: Haja Fritz on 12-10-2024 MCHC (RBC) [Mass/Vol] MCHC [Mass/volume] by Automated count 32.0-35.0 [facility] MCV Auto (RBC) [Entitic vol] Ordered By: Haja Fritz on 12-10-2024 MCV (RBC) [Entitic vol] MCV [Entitic volume] by Automated count 80-100 [facility] Monocytes Auto (Bld) [#/Vol] Ordered By: Haja Fritz on 12-10-2024 Monocytes (Bld) [#/Vol] Automated blood monocyte count 0.0-0.8 [facility] Monocytes/100 WBC Auto (Bld) Ordered By: Haja Fritz on 12-10-2024 Monocytes/100 WBC (Bld) Automated monocyte % . [facility] Neutrophils Auto (Bld) [#/Vo l]Ordered By: Haja Fritz on 12-10-2024 Neutrophils (Bld) [#/Vol] Neutrophils [#/volume] in Blood by Automated count 1.8-7.7 [facility] Neutrophils/100 WBC Auto (Bl d)Ordered By: Haja Fritz on 12-10-2024 Neutrophils/100 WBC (Bld) Automated neutrophil % . [facility] No Panel InformationOrdered By: Haja Fritz on 12-10-2024 Estimated GFR (CKD-EPI) 50.301 mL/Min [facility] Creatinine Clearance (Chem 44.48 [facility] Nucleated erythrocytes [Pres ence] in Blood by Automated countOrdered By: Haja Fritz on 12-10-2024 Nucleated RBC Auto Ql (Bld) Nucleated erythrocytes [Presence] in Blood by Automated count 0-0.5 [facility] Platelet mean volume Auto (B ld) [Entitic vol]Ordered By: Haja Fritz on 12-10-2024 Platelet mean volume (Bld) [Entitic vol] Platelet mean volume [Entitic volume] in Blood by Automated count 6.3-10.7 [facility] Platelets Auto (Bld) [#/Vol] Ordered By: Haja Fritz on 12-10-2024 Platelets (Bld) [#/Vol] Platelets [#/volume] in Blood by Automated count 150-450 [facility] Potassium [Moles/volume] in Serum or PlasmaOrdered By: Haja Fritz on 12-10-2024 Potassium [Moles/Vol] Potassium [Moles/v olume] in Serum or Plasma 3.5-5.1 [facility] Prothrombin Time INRon 12-10 INR Coag (PPP) [Relative time] 1.0 {INR} Normal [facility] Comment on above: Result Comment: INR Therapeutic Range A) Pre- and Peroperative OAT started [...] heart valves: 3 - 4.5 PERFORMED BY: [facility] [place] [address] PATHOLOGIST MANAGER [employer] HASMUKH COLMENARES M.D. Performed By: #### H BCAB, HBSAG, HBSAB, QUANT TB, HCV RX PCR #### [facility] , PT Coag (PPP) [Time] 11.1 s Normal 9.0-12.9 [facility] Comment on above: Result Comment: A he matocrit value greater than 55% may lead to inaccurate results in coagulation testing. Patients having hematocrit values >55% require a special collection tube for coagulation studies. Please contact the laboratory at [phone] for redraw instructions. Performed By: #### H BCAB, HBSAG, HBSAB, QUANT TB, HCV RX PCR #### [facility] , Prothrombin time (PT)Ordered By: Haja Fritz on 12-10-2024 PT Coag (PPP) [Time] Prothrombin time (PT) 9.0- 12.9 [facility] Comment on above: A hematocrit value g reater than 55% may lead to inaccurate results in coagulation testing. Patients having hematocrit values >55% require a special collection tube for coagulation studies. Please contact the laboratory at [phone] for redraw instructions. RBC Auto (Bld) [#/Vol]Ordere d By: Haja Fritz on 04-08-2025 RBC (Bld) [#/Vol] Erythrocytes [#/volu me] in Blood by Automated count 3.60-5.00 [facility] Serum or plasma anion gap de terminationOrdered By: Haja Fritz on 12-10-2024 Anion gap [Moles/Vol] Serum or plasma an ion gap determination 6.0-15.0 [facility] Sodium [Moles/volume] in Ser um or PlasmaOrdered By: Haja Fritz on 12-10-2024 Sodium [Moles/Vol] Sodium [Moles/volume ] in Serum or Plasma 136-145 [facility] Urea nitrogen [Mass/volume] in Serum or PlasmaOrdered By: Haja Fritz on 12-10-2024 Urea nitrogen [Mass/Vol] Urea nitrogen [Mass/volume] in Serum or Plasma 7-25 [facility] Urology Office/Clinic Noteon 12-10-2024 Urology Office/Clinic Note Urology Office/Clinic Note Chief Complaint ureteral stone HPI Staff New Pt f/u from [facility] ED 12/03/24 for UTI and right [...] information and history for this patient from [facility]. I have reviewed and verified the [...] yo F new pt following up to [facility] ED visit on 12/03/24 d/t weakness, dizziness, [...] R ureter. No L hydro. [place] 12[place] [facility] [place]. Personal [...] asprin daily. Follow-up With When Contact Information Haja FRITZ MD, URL [address] [address]- Additional Instructions: schedule cysto, urs, Right laser litho, stent placement Patient Education Laser Therapy for Kidney Stones, Care After Laser Therapy for Kidney Stones I, Krissy Ceron, personally scribed for Dr. Fritz on 12/10/2024 09:56:18. . Documentation recorded by the scribe, Krissy Ceron, accurately reflects the services(s) I performed and decisions made by me. Authenticated by Dr. Fritz on 12/10/2024 10:00:30. Portions of this record may have been created with voice recognition artificial intelligence software, specifically [employer], [employer] and or [email or web address]. Substitutions may have occurred due to the inherent limitations of voice recognition and artificial intelligence software. Problem List/Past Medical History Ongoing Basal cell carcinoma of skin (skin cancer) Kidney stones Ureteral stone with hydronephrosis Historical (more content not included)... Normal [facility] Comment on above: Result Comment: Elec tronically Signed By: Haja FRITZ MD\.br\Date and Time Signed: 12/10/24 10:02 EDT\.br\Electronically Co-Signed By: Krissy Ceron\.br\Date and Time Co-Signed: 12/10/24 09:56 EDT\.br\Electronically Co-Signed By: Krissy Ceron\.br\Date and Time Co-Signed: 12/10/24 09:57 EDT WBC Auto (Bld) [#/Vol]Ordere d By: Haja Fritz on 12-10-2024 WBC (Bld) [#/Vol] Leukocytes [#/volume ] in Blood by Automated count 3.8-11.6 [facility] XR KUBon 12-10-2024 XR KUB [facility] [place] [address] XRay Report Signed Patient: Lisa Gomez MR#: [id number] 5 : 1950 Acct:[id number] Age/Sex: 74 / F ADM Date: 12/10/24 Loc: [place] Room: Type: [facility] Attending Dr: Haja Fritz MD Copies to: [...] Eduardo Oates M.D.12/10/2024 4:29 PM Dictation Location: [place] [address] Transcribed By: [facility] 12/10/24 1629 Dictated By: Luis Eduardo Oates DO 12/10/24 1627 Signed By: 12/10/24 1629 Normal [facility] Urine Cultureon 12-03-2024 Bacteria identified Cx Nom (U) ORGANISM: Escherichia coli (O:ESCCOL) Bonner Count 75,000 ORGANISM: Klebsiella pneumoniae (O:KLEPNE) [place]ner Count 50,000 Aerobic ANUJ Charge (NMIC56) SUSCEPTIBILITY [...] <4 Tigecycline S <2 Tobramycin S <2 Trimethoprim/Sulfamethoxaz ole S <0.5 Aerobic ANUJ Charge (NMIC56) SUSCEPTIBILITY [...] <4 Tigecycline S <2 Tobramycin S <2 Trimethoprim/Sulfamethoxaz ole S <0.5 S = SUSCEPTIBLE I = [...] RESISTANT TO ALL B-LACTAM DRUGS. PERFORMED BY: [facility] [address] [place] [address] PATHOLOGIST MANAGER [employer] HASMUKH COLMENARES M.D. Normal [facility] Comment on above: Performed By: #### H BCAB, HBSAG, HBSAB, QUANT TB, HCV RX PCR #### [facility] , Urine cultureOrdered By: Alba jamshid Pritchett on 12-03-2024 Bacteria identified Cx Nom (U) Escherichia coli Abnormal [facility] Bacteria identified Cx Nom (U) Abnormal [facility] BASIC METABOLIC PANLon 10-03 Anion gap [Moles/Vol] 9 mmol/L Normal 5-15 [facility] Comment on above: Performed By: #### JEANA Castro MP1C #### [facility] ([id number]) [address], [address] [place] [address] Calcium [Mass/Vol] 9.4 mg/dL Normal 8.5-10.5 [facility] Comment on above: Performed By: #### MYRIAM Castro MP #### [facility] ([id number]) [address], [address] [place] [address] Chloride [Moles/Vol] 106 mmol/L Normal 98-109 [facility] Comment on above: Performed By: #### MYRIAM Castro MP #### [facility] ([id number]) [address], [address] [place] [address] CO2 [Moles/Vol] 26 mmol/L Normal 22-32 [facility] Comment on above: Performed By: #### MYRIAM Castro MP #### [facility] LAB ([id number]) [address], [address] [place] [address] Creatinine [Mass/Vol] 1.10 mg/dL High 0.40-1.00 [facility] Comment on above: Result Comment: METH OD TRACEABLE TO IDMS STANDARD Performed By: #### MYRIAM Castro MP #### [facility] ([id number]) [address] [address] [place] [address] GFR/1.73 sq M.predicted among non-blacks MDRD (S/P/Bld) [Vol rate/Area] 53 mL/min/{1.73_m2} Low >59 [facility] Comment on above: Result Comment: Reported eGFR is based on the CKD-EPI 2020 equation that does not use a race coefficient. Performed By: #### MYRIAM Castro MP #### [facility] ([id number]) [address] [place] [address] Glucose [Mass/Vol] 110 mg/dL High 65-99 [facility] Comment on above: Performed By: #### MYRIAM Castro MP #### [facility] ([id number]) [address] [address] [place] [address] Potassium [Moles/Vol] 3.8 mmol/L Normal 3.5-5.0 [facility] Comment on above: Performed By: #### MYRIAM Castro MP #### [facility] ([id number]) [address], [address] [place] [address] Sodium [Moles/Vol] 141 mmol/L Normal 134-146 [facility] Comment on above: Performed By: #### MYRIAM Castro MP #### [facility] ([id number]) [address], [address] [place] [address] Urea nitrogen [Mass/Vol] 18 mg/dL Normal 5-27 [facility] Comment on above: Performed By: #### MYRIAM Castro MP #### [facility] ([id number]) [address], [address] [place] [address] HGB A1C (GLYCO-HGB)on 2024 Glucose [Mass/Vol] 105 mg/dL Normal [facility] Comment on above: Performed By: #### MYRIAM Castro MP #### [facility] ([id number]) [address], [address] [place] [address] HbA1c (Bld) [Mass fraction] 5.3 % Normal 4.4-5.6 [facility] Comment on above: Result Comment: NOTE ADA Guidelines Result HgbA1c Normal : less than 5.7 % Prediabetes : 5.7 % to 6.4 % Diabetes : > 6.4 % Use with caution in patients with abnormal hemoglobin variants as the half-life of red blood cells and in vivo glycation rates are affected. Performed By: #### B MP, HA1C #### [facility] ([id number]) [address] [facility], [address] [place] [address] Blood Mycobacterium tubercul osis stimulated gamma interferon detectionOrdered By: Dax Coello on 09-18-2024 M. tuberculosis tuberculin stim IFN-g Ql (Bld) Blood Mycobacterium tuberculosis tuberculin stimulated gamma interferon detection . [facility] Comment on above: QuantiFERON-TB Gold Plus is a qualitative indirect test forM tuberculosis infection (including disease) and isintended for use in conjunction with risk assessment,radiography, and other medical and diagnostic evaluations.The QuantiFERON-TB Gold Plus result is determined bysubtracting the Nil value from either TB antigen (Ag)value. The Mitogen tube serves as a control for the test. Blood mitogen stimulated elvin ma interferon measurement (units/volume)Ordered By: Dax Coello on 09-18-2024 Mitogen stimulated gamma interferon Qn (Bld) Blood mitogen stimulated gamma interferon measurement (units/volume) . [facility] Hep C Ab wRfx to Qnt PCRon 0 09-18-2024 Hepatitis C Virus Antibody Non-Reactive Normal Non Reactive [facility] Comment on above: Performed By: #### H BCAB, HBSAG, HBSAB, QUANT TB, HCV RX PCR #### [facility] , Interpretation Hepatitis C Comment Normal . [facility] Comment on above: Result Comment: Not infected with HCV unless early or acute infection is suspected (which may be delayed in an immunocompromised individual), or other evidence exists to indicate HCV infection. Performed By: #### H BCAB, HBSAG, HBSAB, QUANT TB, HCV RX PCR #### [facility] , Hepatitis B Core Antibodyon 09-18-2024 Hepatitis B Core Antibody Negative Normal Negative [facility] Comment on above: Result Comment: Perf ormed at: CB - [facility] [place] [id number] [place], [place] [id number] Emergency Preparedness Manager: Sly Mack PhD, Phone: [phone] Performed By: #### H BCAB, HBSAG, HBSAB, QUANT TB, HCV RX PCR #### [facility] , Hepatitis B Surface Antibody on 09-18-2024 Hepatitis B Surface Antibody Non-Reactive Normal . [facility] Comment on above: Result Comment: [...] 09-18-2024 HBsAg Screen Negative Normal Negative [facility] Comment on above: Result Comment: PERF ORMED BY: [facility] [address] [place] [id number] PATHOLOGIST MANAGER PROPOSAL HASMUKH COLMENARES M.D. Performed By: #### H BCAB, HBSAG, HBSAB, QUANT TB, HCV RX PCR #### [facility] , Hepatitis B virus core antib saad assayOrdered By: Dax Coello on 09-18-2024 Hepatitis B Core Total Antibody Negative Negative [facility] Comment on above: Performed at: CB - [facility] [id number] [place] [id number] Director: Sly Mack PhD, Phone: [phone] Hepatitis C virus IgG Ab [Pr esence] in Serum or Plasma by ImmunoassayOrdered By: Dax Coello on 09-18-2024 HCV IgG IA Ql Hepatitis C virus Ig G Ab [Presence] in Serum or Plasma by Immunoassay Non Reactive [facility] Mycobacterium tuberculosis s timulated gamma interferon [Interpretation] in Blood QualOrdered By: Dax Coello on 09-18-2024 M. tuberculosis stim IFN-g Ql (Bld) [Interp] Mycobacterium tuberculosis stimulated gamma interferon [Interpretation] in Blood Qual Negative [facility] Comment on above: No response to M tub erculosis antigens detected.Infection with M tuberculosis is unlikely, but high riskindividuals should be considered for additional testing(ATS/IDSA/CDC Clinical Practice Guidelines, 2017). Thereference range is an Antigen minus Nil result of <0.35IU/mL.The specimen received for QuantiFERON testing was incubatedby the ordering institution. Specific procedures outlinedin our Directory of Services and in the package insert forthe QuantiFERON Gold (In Tube) test must be followed toenable for proper stimulation of cells for the productionof interferon gamma. Chemiluminescence immunoassaymethodologyPerformed at: [facility] [place] [id number] Director: Sly Mack PhD, Phone: [phone] No Panel InformationOrdered By: Dax Coello on 09-18-2024 Hepatitis C Interpretation Comment . [facility] Comment on above: Not infected with HC V unless early or acute infection issuspected (which may be delayed in an immunocompromisedindividual), or other evidence exists to indicate HCVinfection. QuantiFERON TB Goldon 2024 QFTB Criteria Comment Normal . [facility] Comment on [...] Ag Value 0.03 [IU]/mL Normal . [facility] Comment on above: Performed By: #### H BCAB, HBSAG, HBSAB, QUANT TB, HCV RX PCR #### [facility] , Quant TB Gold Plus Negative Normal Negative [facility] Comment on above: [...] interferon gamma. Chemiluminescence immunoassay methodology Performed at: [facility] [address] [id number] Emergency Preparedness Manager: Sly Mack PhD, Phone: [phone] PERFORMED BY: [address] [place] [address] PATHOLOGIST MANAGER PROPOSAL HASMUKH COLMENARES M.D. Performed By: #### H BCAB, HBSAG, HBSAB, QUANT TB, HCV RX PCR #### [facility] , Quant TB2 Ag Value 0.03 [IU]/mL Normal . [facility] Comment on above: Performed By: #### H BCAB, HBSAG, HBSAB, QUANT TB, HCV RX PCR #### [facility] , Quantiferon Nil Value 0.02 [IU]/mL Normal . [facility] Comment on above: Performed By: #### H BCAB, HBSAG, HBSAB, QUANT TB, HCV RX PCR #### [facility] , Quantiferon TB Mitogen >10.00 Normal . [facility] Comment on above: Performed By: #### H BCAB, HBSAG, HBSAB, QUANT TB, HCV RX PCR #### [facility] , Serum hepatitis B virus surf [place] antibody detectionOrdered By: Dax Coello on 09-18-2024 HBV surface Ab Ql (S) Hepatitis B virus surface Ab [Presence] in Serum . [facility] Comment on above: Non Reactive: Not im mune to HBV infection. Equivocal: Unable to determine if anti-HBs is present at levels consistent with immunity. Reactive: Anti-HBs concentration detected at greater than 10 mIU/mL. Individual is considered to be immune to infection with HBV. Serum or plasma hepatitis B virus surface antigen detection by immunoassayOrdered By: Dax Coello on 09-18-2024 HBV surface Ag IA Ql Hepatitis B virus s urface Ag [Presence] in Serum or Plasma by Immunoassay Negative [facility] Whole blood measurement of M ycobacterium tuberculosis stimulated gamma interferon relOrdered By: Dax Coello on 09-18-2024 M. tuberculosis stim IFN-g by CD4+ CD8+ T-cells corrected for background Qn (Bld) Whole blood measurement of Mycobacterium tuberculosis stimulated gamma interferon rel . [facility] COMPREHENSIVE METABOLIC PANE Bijan 02-01-2024 Albumin [Mass/Vol] 4.0 g/dL Normal 3.2-5.3 [facility] Comment on above: Performed By: #### Pete VINES 33140-0 #### [facility] ([id number]) [address], [address] [place] [address] ALP [Catalytic activity/Vol] 103 U/L Normal 39-130 [facility] Comment on above: Performed By: #### Pete VINES, 16132-4 #### [facility] ([id number]) [address], [address] [place] [address] Anion gap [Moles/Vol] 10 mmol/L Normal 5-15 [facility] Comment on above: Performed By: #### Pete VINES, 99619-7 #### [facility] ([id number]) [address], [address] [place] [address] AST [Catalytic activity/Vol] 15 U/L Normal 0-41 [facility] Comment on above: Performed By: #### Pete VINES, 78904-1 #### [facility] ([id number]) [address], [address] [place] [address] Bilirubin [Mass/Vol] 0.4 mg/dL Normal 0.3-1.2 [facility] Comment on above: Performed By: #### Pete VINES, 33633-7 #### [facility] ([id number]) [address] [place] [address] Calcium [Mass/Vol] 8.9 mg/dL Normal 8.5-10.5 [facility] Comment on above: Performed By: #### Pete VINES, 10180-0 #### [facility] ([id number]) [address] [place] [address] Chloride [Moles/Vol] 105 mmol/L Normal 98-109 [facility] Comment on above: Performed By: #### Pete VINES, 54614-7 #### [facility] ([id number]) [address] [place] [address] CO2 [Moles/Vol] 24 mmol/L Normal 22-32 [facility] Comment on above: Performed By: #### Pete VINES, 36368-0 #### [facility] ([id number]) [address] [place] [address] Creatinine [Mass/Vol] 1.00 mg/dL Normal 0.40-1.00 [facility] Comment on above: Result Comment: METH OD TRACEABLE TO IDMS STANDARD Performed By: #### Pete VINES, 00221-8 #### [facility] ([id number]) [address] [place] [address] METHOD TRACEABLE TO IDMS STANDARD Glucose [Mass/Vol] 100 mg/dL High 65-99 [facility] Comment on above: Performed By: #### Pete VINES, 01994-9 #### [facility] ([id number]) [address] [place] [address] Potassium [Moles/Vol] 4.3 mmol/L Normal 3.5-5.0 [facility] Comment on above: Performed By: #### Pete VINES, 72678-1 #### [facility] ([id number]) [address], [address] [place] [address] Protein [Mass/Vol] 7.6 g/dL Normal 6.0-8.0 [facility] Comment on above: Performed By: #### Pete VINES, 70823-2 #### [facility] ([id number]) [address], [address] [place] [address] Sodium [Moles/Vol] 139 mmol/L Normal 134-146 [facility] Comment on above: Performed By: #### Pete VINES, 48631-7 #### [facility] ([id number]) [address], [address] [place] [address] Urea nitrogen [Mass/Vol] 21 mg/dL Normal 5-27 [facility] Comment on above: Performed By: #### Pete VINES, 74532-6 #### [facility] ([id number]) [address], [address] [place] [address] ALT [Catalytic activity/Vol] 15 U/L Normal 0-31 [facility] Comment on above: Performed By: #### Pete VINES, 85320-9 #### [facility] ([id number]) [address], [address] [place] [address] GFR/1.73 sq M.predicted among non-blacks MDRD (S/P/Bld) [Vol rate/Area] 60 mL/min/{1.73_m2} Normal >59 [facility] Comment on above: Result Comment: Reported eGFR is based on the CKD-EPI 2020 equation that does not use a race coefficient. Performed By: #### Pete VINES, 79458-8 #### [facility] ([id number]) [address], [address] [place] [address] Comprehensive metabolic pane bijan 02-01-2024 ALT No additional P-5'-P [Catalytic activity/Vol] 15 U/L 0 - 31 U/L [facility] eGFR (CKD-EPI)non-race dependent 60 - PINF [facility] Comment on above: Reported eGFR is based on the CKD-EPI 2020 equation that does not use a race coefficient. Interpretation and review of laboratory results Abnormal [facility] Lipid 1996 panelon 4 Cholesterol [Mass/Vol] 189 mg/dL Normal 150-200 [facility] Comment on above: Performed By: #### Pete VINES, 41545-6 #### [facility] ([id number]) [address], [address] [place] [address] Cholesterol in HDL [Mass/Vol] 65 mg/dL Normal >39 [facility] Comment on above: Result Comment: HDL <40 mg/dL - High Risk HDL > or = 40mg/dL- Desirable HDL >60 mg/dL - Negative Risk Performed By: #### Pete VINES, 37420-2 #### [facility] ([id number]) [address] [place] [address] Cholesterol in LDL [Mass/Vol] 106 mg/dL Normal <130 [facility] Comment on above: Result Comment: LDL <100 mg/dL - Desirable LDL >160 mg/dL - High Risk Performed By: #### Pete VINES, 61735-4 #### [facility] ([id number]) [address] [place] [address] Cholesterol in VLDL [Mass/Vol] 18 mg/dL Normal 0-30 [facility] Comment on above: Performed By: #### Pete VINES, 77787-7 #### [facility] ([id number]) [address] [place] [address] CHOLESTEROL:HDL 2.9 Normal 1.0-5.0 [facility] Comment on above: Performed By: #### Pete VINES, 81151-3 #### [facility] ([id number]) [address] [facility] [address], [address] [place] [address] Triglyceride [Mass/Vol] 91 mg/dL Normal 27-150 [facility] Comment on above: Performed By: #### C , 84660-2 #### [facility] ([id number]) [address] [facility] [place] [address] MANUEL Antinuclear Antibodieson 01-23-2024 Antinuclear Abs, IFA Negative Normal . [facility] Comment on above: Result Comment: Nega tive <1:80 Borderline 1:80 Positive >1:80 ICAP nomenclature: AC-0 For more information about Hep-2 cell patterns use ANApatterns.org, the official website for the International Consensus on Antinuclear Antibody (MANUEL) Patterns (ICAP). Performed at: [facility] [address] [id number] Emergency Preparedness Manager: Sly Mack PhD, Phone: [phone] PERFORMED BY: [place] [address] PATHOLOGIST MANAGER PROPOSAL AYO CRUZ M.D. Performed By: #### H BCAB, HBSAG, HBSAB, QUANT TB, HCV RX PCR #### [facility] , Alanine aminotransferase [En zymatic activity/volume] in Serum or PlasmaOrdered By: Dax Coello on 01-23-2024 ALT [Catalytic activity/Vol] 24 U/L Normal 7-52 [facility] Comment on above: Performed By: #### E SR, TSH3, CK, T4F, CRP, CMP, CBC #### [facility] [address] [place] [address] #### ALDOLASE, MANUEL #### [facility] , Albumin [Mass/volume] in Ser um or Plasma by Bromocresol green (BCG) dye binding methoOrdered By: Dax Coello on 01-23-2024 Albumin BCG dye [Mass/Vol] 4.3 g/dL 3.5-5.7 [facility] Aldolaseon 01-23-2024 Aldolase 3.3 U/L Normal 3.3-10.3 [facility] Comment on above: Result Comment: Perf ormed at: - [facility] [address] [id number] Emergency Preparedness Manager: Sly Mack PhD, Phone: [phone] PERFORMED BY: [place] [address] PATHOLOGIST MANAGER PROPOSAL AYO CRUZ M.D. Performed By: #### H BCAB, HBSAG, HBSAB, QUANT TB, HCV RX PCR #### [facility] , Alkaline phosphatase [Enzyma tic activity/volume] in Serum or PlasmaOrdered By: Dax Coello on 01-23-2024 ALP [Catalytic activity/Vol] 119 U/L High 34-104 [facility] Comment on above: Performed By: #### E SR, TSH3, CK, T4F, CRP, CMP, CBC #### [facility] [address] [place] [address] #### ALDOLASE, MANUEL #### [facility] , Aspartate aminotransferase [ Enzymatic activity/volume] in Serum or PlasmaOrdered By: Dax Coello on 01-23-2024 AST [Catalytic activity/Vol] 30 U/L Normal 13-39 [facility] Comment on above: Performed By: #### E SR, TSH3, CK, T4F, CRP, CMP, CBC #### [facility] [address] [place] [address] [place] #### ALDOLASE, MANUEL #### [facility] , Automated basophil %Ordered By: Dax Coello on 01-23-2024 Basophils/100 WBC (Bld) 0.9 % Normal . [facility] Comment on above: Performed By: #### H BCAB, HBSAG, HBSAB, QUANT TB, HCV RX PCR #### [facility] , Automated basophil countOrde red By: aDx Coello on 01-23-2024 Basophils (Bld) [#/Vol] 0.1 10*3/uL Normal 0.0-0.2 [facility] Comment on above: Performed By: #### H BCAB, HBSAG, HBSAB, QUANT TB, HCV RX PCR #### [facility] , Automated blood monocyte cou ntOrdered By: Dax Vergararow on 01-23-2024 Monocytes (Bld) [#/Vol] 0.5 10*3/uL Normal 0.0-0.8 [facility] Comment on above: Performed By: #### H BCAB, HBSAG, HBSAB, QUANT TB, HCV RX PCR #### [facility] , Automated eosinophil %Ordere d By: Dax Vergararow on 01-23-2024 Eosinophils/100 WBC (Bld) 2.4 % Normal . [facility] Comment on above: Performed By: #### H BCAB, HBSAG, HBSAB, QUANT TB, HCV RX PCR #### [facility] , Automated eosinophil countOr dered By: Dax Mode on 01-23-2024 Eosinophils (Bld) [#/Vol] 0.2 10*3/uL Normal 0.0-0.45 [facility] Comment on above: Performed By: #### H BCAB, HBSAG, HBSAB, QUANT TB, HCV RX PCR #### [facility] , Automated monocyte %Ordered By: Dax Vergararow on 01-23-2024 Monocytes/100 WBC (Bld) 6.8 % Normal . [facility] Comment on above: Performed By: #### H BCAB, HBSAG, HBSAB, QUANT TB, HCV RX PCR #### [facility] , Automated neutrophil %Ordere d By: Dax Mode on 01-23-2024 Neutrophils/100 WBC (Bld) 61.7 % Normal . [facility] Comment on above: Performed By: #### H BCAB, HBSAG, HBSAB, QUANT TB, HCV RX PCR #### [facility] , Bilirubin.total [Mass/volume ] in Serum or PlasmaOrdered By: Dax Coello on 01-23-2024 Bilirubin [Mass/Vol] 0.5 mg/dL Normal 0.3-1.0 [facility] Comment on above: Performed By: #### E SR, TSH3, CK, T4F, CRP, CMP, CBC #### [facility] [address] [place] [address] [place] #### ALDOLASE, MANUEL #### [facility] , C reactive protein [Mass/vol ume] in Serum or PlasmaOrdered By: Dax Coello on 01-23-2024 CRP [Mass/Vol] 1.0 mg/dL 0.0-0.5 [facility] C-Reactive Proteinon 024 C-Reactive Protein 1.0 mg/dL High 0.0-0.5 [facility] Comment on above: Performed By: #### H BCAB, HBSAG, HBSAB, QUANT TB, HCV RX PCR #### [facility] , Calcium [Mass/volume] in Ser um or PlasmaOrdered By: Dax Coello on 01-23-2024 Calcium [Mass/Vol] 9.6 mg/dL Normal 8.6-10.3 [facility] Comment on above: Performed By: #### E SR, TSH3, CK, T4F, CRP, CMP, CBC #### [facility] [address] [place] [address] [place] #### ALDOLASE, MANUEL #### [facility] , Carbon dioxide, total [Moles /volume] in Serum or PlasmaOrdered By: Dax Coello on 01-23-2024 CO2 [Moles/Vol] 25.5 mmol/L Normal 21.0-31.0 [facility] Comment on above: Performed By: #### E SR, TSH3, CK, T4F, CRP, CMP, CBC #### [facility] [address] [place] [address] [place] #### ALDOLASE, MANUEL #### [facility] , Chloride [Moles/volume] in S beatris or PlasmaOrdered By: Dax Coello on 01-23-2024 Chloride [Moles/Vol] 107 mmol/L Normal 98-107 [facility] Comment on above: Performed By: #### E SR, TSH3, CK, T4F, CRP, CMP, CBC #### [facility] [address] [place] [address] [place] #### ALDOLASE, MANUEL #### [facility] , Complete Blood Count Auto Di ffon 01-23-2024 Mean Corpuscular HGB Conc 33.2 g/dL Normal 32.0-35.0 [facility] Comment on above: Performed By: #### H BCAB, HBSAG, HBSAB, QUANT TB, HCV RX PCR #### [facility] , NRBC% 0.2 /100{WBC} Normal 0-0.5 [facility] Comment on above: Performed By: #### H BCAB, HBSAG, HBSAB, QUANT TB, HCV RX PCR #### [facility] , Comprehensive Metabolic Pane bijan 01-23-2024 Albumin [Mass/Vol] 4.3 g/dL Normal 3.5-5.7 [facility] Comment on above: Performed By: #### E SR, TSH3, CK, T4F, CRP, CMP, CBC #### [facility] [address] [place] [address] [place] #### ALDOLASE, MANUEL #### [facility] , GFR/1.73 sq M.predicted MDRD (S/P/Bld) [Vol rate/Area] 47.618 mL/min/{1.73_m2} Normal [facility] Comment on above: Performed By: #### E SR, TSH3, CK, T4F, CRP, CMP, CBC #### [facility] [address] [place] [address] [place] #### ALDOLASE, MANUEL #### [facility] , Creatine kinase [Enzymatic a ctivity/volume] in Serum or PlasmaOrdered By: Dax Coello on 01-23-2024 CK [Catalytic activity/Vol] 69 U/L Normal 30-223 [facility] Comment on above: Result Comment: PERF ORMED BY: [place] [address] PATHOLOGIST MANAGER PROPOSAL AYO CRUZ M.D. Performed By: #### E SR, TSH3, CK, T4F, CRP, CMP, CBC #### [address] #### ALDOLASE, MANUEL #### [facility] , Creatinine [Mass/volume] in Serum or PlasmaOrdered By: Dax Coello on 01-23-2024 Creatinine [Mass/Vol] 1.21 mg/dL High 0.60-1.20 [facility] Comment on above: Performed By: #### E SR, TSH3, CK, T4F, CRP, CMP, CBC #### [address] #### ALDOLASE, MANUEL #### [facility] , Erythrocyte Sedimentation Ra solo 01-23-2024 ESR (Bld) [Velocity] 58 mm/h High 0-29 [facility] Comment on above: Result Comment: PERF ORMED BY: [place] [address] PATHOLOGIST MANAGER PROPOSAL AYO CRUZ M.D. Performed By: #### H BCAB, HBSAG, HBSAB, QUANT TB, HCV RX PCR #### [facility] , Erythrocyte distribution wid th [Ratio] by Automated countOrdered By: Dax Coello on 01-23-2024 Erythrocyte distribution width (RBC) [Ratio] 15.3 % Normal 11.9-15.3 [facility] Comment on above: Performed By: #### H BCAB, HBSAG, HBSAB, QUANT TB, HCV RX PCR #### [facility] , Erythrocyte sedimentation ra te by Photometric methodOrdered By: Dxa Coello on 01-23-2024 ESR Photometric method (Bld) [Velocity] 58 mm/hr 0-29 [facility] Erythrocytes [#/volume] in B lood by Automated countOrdered By: Dax Coello on 01-23-2024 RBC (Bld) [#/Vol] 5.04 10*6/uL High 3.60-5.00 [facility] Comment on above: Performed By: #### H BCAB, HBSAG, HBSAB, QUANT TB, HCV RX PCR #### [facility] , Glucose [Mass/volume] in Ser um or PlasmaOrdered By: Dax Coello on 01-23-2024 Glucose [Mass/Vol] 110 mg/dL High 70-100 [facility] Comment on above: ADA recommended refe rence rangeRandom Glucose Reference Range is dependent on time and content of last meal. Glucose of more than 200 mg/dL in a nonstressed, ambulatory subject supports the diagnosis of Diabetes Mellitus. Result Comment: [place] om Glucose Reference Range is dependent on time and content of last meal. Glucose of more than 200 mg/dL in a nonstressed, ambulatory subject supports the diagnosis of Diabetes Mellitus. ADA recommended reference range Performed By: #### E SR, TSH3, CK, T4F, CRP, CMP, CBC #### [facility] [address] [place] [address] #### ALDOLASE, MANUEL #### [facility] , Hematocrit [Volume Fraction] of Blood by Automated countOrdered By: Dax Coello on 01-23-2024 Hematocrit (Bld) [Volume fraction] 43.1 % Normal 34.0-46.4 [facility] Comment on above: Performed By: #### H BCAB, HBSAG, HBSAB, QUANT TB, HCV RX PCR #### [facility] , Hemoglobin [Mass/volume] in BloodOrdered By: Dax Coello on 01-23-2024 Hemoglobin (Bld) [Mass/Vol] 14.3 g/dL Normal 11.8-15.4 [facility] Comment on above: Performed By: #### H BCAB, HBSAG, HBSAB, QUANT TB, HCV RX PCR #### [facility] , Leukocytes [#/volume] correc luis alfredo for nucleated erythrocytes in Blood by Automated counOrdered By: Dax Coello on 01-23-2024 WBC corrected for nucl RBC Auto (Bld) [#/Vol] 7.1 10*3/uL 3.8-11.6 [facility] Leukocytes [#/volume] in Blo od by Automated countOrdered By: Dax Coello on 01-23-2024 WBC (Bld) [#/Vol] 7.1 10*3/uL Normal 3.8-11.6 [facility] Comment on above: Performed By: #### H BCAB, HBSAG, HBSAB, QUANT TB, HCV RX PCR #### [facility] , Lymphocytes [#/volume] in Bl ood by Automated countOrdered By: Dax Coello on 01-23-2024 Lymphocytes (Bld) [#/Vol] 2.0 10*3/uL Normal 1.00-4.8 [facility] Comment on above: Performed By: #### H BCAB, HBSAG, HBSAB, QUANT TB, HCV RX PCR #### [facility] , Lymphocytes/100 leukocytes i n Blood by Automated countOrdered By: Dax Coello on 01-23-2024 Lymphocytes/100 WBC (Bld) 28.2 % Normal . [facility] Comment on above: Performed By: #### H BCAB, HBSAG, HBSAB, QUANT TB, HCV RX PCR #### [facility] , MCH [Entitic mass] by Automa luis alfredo countOrdered By: Dax Coello on 01-23-2024 MCH (RBC) [Entitic mass] 28.4 pg Normal 24.7-34.3 [facility] Comment on above: Performed By: #### H BCAB, HBSAG, HBSAB, QUANT TB, HCV RX PCR #### [facility] , MCHC Auto (RBC) [Mass/Vol]Or dered By: Dax Coello on 01-23-2024 MCHC (RBC) [Mass/Vol] 33.2 g/dL 32.0-35.0 [facility] MCV [Entitic volume] by Auto mated countOrdered By: Dax Coello on 01-23-2024 MCV (RBC) [Entitic vol] 85.5 fL Normal 80-100 [facility] Comment on above: Performed By: #### H BCAB, HBSAG, HBSAB, QUANT TB, HCV RX PCR #### [facility] , Neutrophils [#/volume] in Bl ood by Automated countOrdered By: Dax Coello on 01-23-2024 Neutrophils (Bld) [#/Vol] 4.4 10*3/uL Normal 1.8-7.7 [facility] Comment on above: Performed By: #### H BCAB, HBSAG, HBSAB, QUANT TB, HCV RX PCR #### [facility] , No Panel InformationOrdered By: Dax Coello on 01-23-2024 Estimated GFR (CKD-EPI) 47.618 mL/Min [facility] Creatinine Clearance (Chem N/A [facility] Nucleated erythrocytes [Pres ence] in Blood by Automated countOrdered By: Dax Coello on 01-23-2024 Nucleated RBC Auto Ql (Bld) 0.2 /100{WBC} 0-0.5 [facility] Platelet mean volume [Entiti c volume] in Blood by Automated countOrdered By: Dax Coello on 01-23-2024 Platelet mean volume (Bld) [Entitic vol] 8.6 fL Normal 6.3-10.7 [facility] Comment on above: Performed By: #### H BCAB, HBSAG, HBSAB, QUANT TB, HCV RX PCR #### [facility] , Platelets [#/volume] in Bloo d by Automated countOrdered By: Dax Coello on 01-23-2024 Platelets (Bld) [#/Vol] 380 10*3/uL Normal 150-450 [facility] Comment on above: Performed By: #### H BCAB, HBSAG, HBSAB, QUANT TB, HCV RX PCR #### [facility] , Potassium [Moles/volume] in Serum or PlasmaOrdered By: Dax Coello on 01-23-2024 Potassium [Moles/Vol] 4.5 mmol/L Normal 3.5-5.1 [facility] Comment on above: Performed By: #### E SR, TSH3, CK, T4F, CRP, CMP, CBC #### [facility] [address] [place] [address] [place] #### ALDOLASE, MANUEL #### [facility] , Protein [Mass/volume] in Ser um or PlasmaOrdered By: Dax Mode on 01-23-2024 Protein [Mass/Vol] 7.5 g/dL Normal 6.4-8.9 [facility] Comment on above: Performed By: #### E SR, TSH3, CK, T4F, CRP, CMP, CBC #### [facility] [address] [place] [address] #### ALDOLASE, MANUEL #### [facility] , Serum globulin measurement b y calculation (mass/volume)Ordered By: Dax Coello on 01-23-2024 Globulin (S) [Mass/Vol] 3.2 g/dL [facility] Comment on above: Performed By: #### E SR, TSH3, CK, T4F, CRP, CMP, CBC #### [facility] [address] [place] [address] [place] #### ALDOLASE, MANUEL #### [facility] , Serum or plasma albumin/glob ulin mass ratioOrdered By: Daxsilvia Coello on 01-23-2024 Albumin/Globulin [Mass ratio] 1.3 {ratio} [facility] Comment on above: Performed By: #### E SR, TSH3, CK, T4F, CRP, CMP, CBC #### [facility] [address] [place] [address] [place] #### ALDOLASE, MANUEL #### [facility] , Serum or plasma anion gap de terminationOrdered By: Dax Mode on 01-23-2024 Anion gap [Moles/Vol] 12.0 mmol/L Normal 6.0-15.0 [facility] Comment on above: Performed By: #### E SR, TSH3, CK, T4F, CRP, CMP, CBC #### [facility] [address] [place] [address] #### ALDOLASE, MANUEL #### [facility] , Sodium [Moles/volume] in Ser um or PlasmaOrdered By: Dax Vergararow on 01-23-2024 Sodium [Moles/Vol] 140 mmol/L Normal 136-145 [facility] Comment on above: Performed By: #### E SR, TSH3, CK, T4F, CRP, CMP, CBC #### [address] #### ALDOLASE, MANUEL #### [facility] , Thyrotropin [Units/volume] i n Serum or PlasmaOrdered By: Dax Vergararow on 01-23-2024 TSH Qn 1.66 m[IU]/L Normal 0.45-5.33 [facility] Comment on above: Result Comment: PERF ORMED BY: [place] [address] PATHOLOGIST MANAGER [employer]O CRUZ M.D. Performed By: #### H BCAB, HBSAG, HBSAB, QUANT TB, HCV RX PCR #### [facility] , Thyroxine (T4) free [Mass/vo lume] in Serum or PlasmaOrdered By: Dax Vergararow on 01-23-2024 Free T4 [Mass/Vol] 0.93 ng/dL Normal 0.61-1.12 [facility] Comment on above: Performed By: #### H BCAB, HBSAG, HBSAB, QUANT TB, HCV RX PCR #### [facility] , Urea nitrogen [Mass/volume] in Serum or PlasmaOrdered By: aDx Vergararow on 01-23-2024 Urea nitrogen [Mass/Vol] 14 mg/dL Normal 7-25 [facility] Comment on above: Performed By: #### E SR, TSH3, CK, T4F, CRP, CMP, CBC #### [facility] [address] [place] [address] [place] #### ALDOLASE, MANUEL #### [facility] , CBC AND AUTO DIFFon 11-28-19 ABSOLUTE BASOPHIL 0.1 X10E9/L Normal 0.0-0.2 [facility] Comment on above: Performed By: #### C BCA, CMP, 75082-2, 3083-, THYR, 78742-3 #### [facility] ([id number]) [address], [address] [place] [address] ABSOLUTE NEUTROPHIL 4.6 X10E9/L Normal 1.5-6.6 [facility] Comment on above: Performed By: #### C BCA, CMP, 95411-0, 3083-09, THYR, 21754-4 #### [facility] ([id number]) [address], [address] [place] [address] Basophils/100 WBC (Bld) 0.9 % Normal [facility] Comment on above: Performed By: #### C BCA, CMP, , 3083-09, THYR, 09446-5 #### [facility] ([id number]) [address], [address] [place] [address] Eosinophils (Bld) [#/Vol] 0.3 10*3/uL Normal 0.0-0.4 [facility] Comment on above: Performed By: #### C BCA, CMP, , 3083-09, THYR, 34542-5 #### [facility] ([id number]) [address], [address] [place] [address] Eosinophils/100 WBC (Bld) 4.6 % Normal [facility] Comment on above: Performed By: #### C BCA, CMP, 32640-0, 3083-, THYR, 85100-0 #### [facility] ([id number]) [address], [address] [place] [address] Erythrocyte distribution width (RBC) [Ratio] 14.1 % Normal 11.5-15.0 [facility] Comment on above: Performed By: #### C BCA, CMP, 68721-5, 3083-, THYR, 04226-4 #### [facility] ([id number]) [address], [address] [place] [address] Hematocrit (Bld) [Volume fraction] 39.1 % Normal 35-47 [facility] Comment on above: Performed By: #### C BCA, CMP, , 3083-09, THYR, 23802-2 #### [facility] ([id number]) [address], [address] [place] [address] Hemoglobin (Bld) [Mass/Vol] 13.2 g/dL Normal 11.7-15.5 [facility] Comment on above: Performed By: #### C BCA, CMP, , 3083-09, THYR, 00888-4 #### [facility] ([id number]) [address], [address] [place] [address] Lymphocytes (Bld) [#/Vol] 1.7 10*3/uL Normal 1.0-3.5 [facility] Comment on above: Performed By: #### C BCA, CMP, , 3083-09, THYR, 51282-9 #### [facility] ([id number]) [address], [address] [place] [address] Lymphocytes/100 WBC (Bld) 23.3 % Normal [facility] Comment on above: Performed By: #### C BCA, CMP, 40274-4, 3083-09, THYR, 19710-7 #### [facility] ([id number]) [address], [address] [place] [address] MCH (RBC) [Entitic mass] 28.6 pg Normal 27-34 [facility] Comment on above: Performed By: #### C BCA, CMP, 22153-2, 4-1, THYR, 96009-4 #### [facility] ([id number]) [address], [address] [place] [address] MCHC (RBC) [Mass/Vol] 33.8 g/dL Normal 32-36 [facility] Comment on above: Performed By: #### C BCA, CMP, 20599-4, 3083-, THYR, 15191-3 #### [facility] ([id number]) [address], [address] [place] [address] MCV (RBC) [Entitic vol] 85 fL Normal 80-100 [facility] Comment on above: Performed By: #### C BCA, CMP, 45208-0, 3083-, THYR, 56463-4 #### [facility] ([id number]) [address], [address] [place] [address] Monocytes (Bld) [#/Vol] 0.6 10*3/uL Normal 0-0.9 [facility] Comment on above: Performed By: #### C BCA, CMP, 51713-7, 3083-, THYR, 96732-3 #### [facility] ([id number]) [address], [address] [place] [address] Monocytes/100 WBC (Bld) 7.7 % Normal [facility] Comment on above: Performed By: #### C BCA, CMP, 20377-7, 3083-, THYR, 21787-9 #### [facility] ([id number]) [address], [address] [place] [address] Neutrophils/100 WBC (Bld) 63.5 % Normal [facility] Comment on above: Performed By: #### C BCA, CMP, 23171-5, 4-1, THYR, 27822-6 #### [facility] ([id number]) [address], [address] [place] [address] Platelet mean volume (Bld) [Entitic vol] 8.7 fL Normal 7-12 [facility] Comment on above: Performed By: #### C BCA, CMP, 84639-5, 4-1, THYR, 13233-4 #### [facility] ([id number]) [address], [address] [address] Platelets (Bld) [#/Vol] 366 10*3/uL Normal 150-450 [facility] Comment on above: Performed By: #### C BCA, CMP, 54171-4, 4-, THYR, 75509-7 #### [facility] ([id number]) [address] [address] RBC COUNT 4.63 X10E12/L Normal 3.80-5.20 [facility] Comment on above: Performed By: #### C BCA, CMP, 60960-2, 3083-1, THYR, 49235-5 #### [facility] ([id number]) [address] [address] WBC (Bld) [#/Vol] 7.2 10*3/uL Normal 4.0-11.0 [facility] Comment on above: Performed By: #### C BCA, CMP, 57300-0, 3083-1, THYR, 62589-6 #### [facility] ([id number]) [address] [address] CBC auto differentialon 11-03 Basophils (Bld) [#/Vol] 0.1 10*3/uL [facility] Basophils/100 WBC (Bld) 0.9 % [facility] Eosinophils (Bld) [#/Vol] 0.3 10*3/uL [facility] Eosinophils/100 WBC (Bld) 4.6 % [facility] Erythrocyte distribution width (RBC) [Ratio] 14.1 % 11.5 - 15.0 % [facility] Hematocrit (Bld) [Volume fraction] 39.1 % 35 - 47 % [facility] Hemoglobin (Bld) [Mass/Vol] 13.2 g/dL 11.7 - 15.5 g/dL [facility] Lymphocytes (Bld) [#/Vol] 1.7 10*3/uL [facility] Lymphocytes/100 WBC (Bld) 23.3 % [facility] MCH (RBC) [Entitic mass] 28.6 pg 27 - 34 pg [facility] MCHC (RBC) [Mass/Vol] 33.8 g/dL 32 - 3 6 g/dL [facility] MCV (RBC) [Entitic vol] 85 fL 80 - 100 fL [facility] Monocytes (Bld) [#/Vol] 0.6 10*3/uL [facility] Monocytes/100 WBC (Bld) 7.7 % [facility] Neutrophils (Bld) [#/Vol] 4.6 10*3/uL [facility] Neutrophils/100 WBC (Bld) 63.5 % [facility] Platelet mean volume (Bld) [Entitic vol] 8.7 fL 7 - 12 fL [facility] Platelets (Bld) [#/Vol] 366 10*3/uL [facility] RBC (Bld) [#/Vol] 4.63 10*6/uL [facility] WBC corrected for nucl RBC Auto (Bld) [#/Vol] 7.2 [facility] COMPREHENSIVE METABOLIC PANE Bijan 11-28-2023 Albumin [Mass/Vol] 3.9 g/dL Normal 3.2-5.3 [facility] Comment on above: Performed By: #### C BCA, CMP, 29501-3, 3084-1, THYR, 16877-5 #### [facility] ([id number]) [address], [address] [place] [address] ALP [Catalytic activity/Vol] 101 U/L Normal 39-130 [facility] Comment on above: Performed By: #### C BCA, CMP, 34025-9, 4-1, THYR, 35127-1 #### [facility] ([id number]) [address], [address] [place] [address] ALT [Catalytic activity/Vol] 15 U/L Normal 0-31 [facility] Comment on above: Performed By: #### C BCA, CMP, 51731-3, 4-1, THYR, 16111-6 #### [facility] ([id number]) [address], [address] [place] [address] Anion gap [Moles/Vol] 10 mmol/L Normal 5-15 [facility] Comment on above: Performed By: #### C BCA, CMP, 34068-4, 4-1, THYR, 68413-2 #### [facility] ([id number]) [address], [address] [place] [address] AST [Catalytic activity/Vol] 20 U/L Normal 0-41 [facility] Comment on above: Performed By: #### C BCA, CMP, 99950-5, 4-1, THYR, 10203-7 #### [facility] ([id number]) [address], [address] [place] [address] Bilirubin [Mass/Vol] 0.3 mg/dL Normal 0.3-1.2 [facility] Comment on above: Performed By: #### C BCA, CMP, 73955-6, 4-1, THYR, 15431-3 #### [facility] ([id number]) [address], [address] [place] [address] Calcium [Mass/Vol] 9.1 mg/dL Normal 8.5-10.5 [facility] Comment on above: Performed By: #### C BCA, CMP, 04047-0, 3084-1, THYR, 30981-7 #### [facility] ([id number]) [address], [address] [place] [address] Chloride [Moles/Vol] 105 mmol/L Normal 98-109 [facility] Comment on above: Performed By: #### C BCA, CMP, 89577-3, 3084-1, THYR, 92848-8 #### [facility] ([id number]) [address], [address] [place] [address] CO2 [Moles/Vol] 25 mmol/L Normal 22-32 [facility] Comment on above: Performed By: #### C BCA, CMP, 34289-4, 3084-1, THYR, 08940-8 #### [facility] ([id number]) [address], [address] [place] [address] Creatinine [Mass/Vol] 1.06 mg/dL High 0.40-1.00 [facility] Comment on above: Result Comment: METH OD TRACEABLE TO IDMS STANDARD Performed By: #### C BCA, CMP, 00302-8, 3083-1, THYR, 85389-4 #### [facility] ([id number]) [address], [address] [place] [address] GFR/1.73 sq M.predicted among non-blacks MDRD (S/P/Bld) [Vol rate/Area] 56 mL/min/{1.73_m2} Low >59 [facility] Comment on above: Result Comment: Reported eGFR is based on the CKD-EPI 2020 equation that does not use a race coefficient. Performed By: #### C BCA, CMP, 84048-9, 3084-1, THYR, 75965-4 #### [facility] ([id number]) [address], [address] [place] [address] Glucose [Mass/Vol] 111 mg/dL High 65-99 [facility] Comment on above: Performed By: #### C BCA, CMP, 63446-6, 3084-1, THYR, 12030-8 #### [facility] ([id number]) [address], [address] [place] [address] Potassium [Moles/Vol] 3.7 mmol/L Normal 3.5-5.0 [facility] Comment on above: Performed By: #### C BCA, CMP, 46185-2, 3084-1, THYR, 32385-4 #### [facility] ([id number]) [address], [address] [place] [address] Protein [Mass/Vol] 7.2 g/dL Normal 6.0-8.0 [facility] Comment on above: Performed By: #### C BCA, CMP, 15327-7, 4-1, THYR, 62614-2 #### [facility] ([id number]) [address], [address] [place] [address] Sodium [Moles/Vol] 140 mmol/L Normal 134-146 [facility] Comment on above: Performed By: #### C BCA, CMP, 28359-2, 4-1, THYR, 73445-2 #### [facility] ([id number]) [address], [address] [place] [address] Urea nitrogen [Mass/Vol] 18 mg/dL Normal 5-27 [facility] Comment on above: Performed By: #### C BCA, CMP, 69857-6, 3083-1, THYR, 44515-1 #### [facility] ([id number]) [address], [address] [place] [address] Comprehensive metabolic pane bijan 11-28-2023 Albumin [Mass/Vol] 3.9 g/dL 3.2 - 5.3 g/dL [facility] ALP [Catalytic activity/Vol] 101 U/L 39 - 130 U/L [facility] ALT No additional P-5'-P [Catalytic activity/Vol] 15 U/L 0 - 31 U/L [facility] Anion gap [Moles/Vol] 10 mmol/L 5 - 15 mmol/L [facility] AST [Catalytic activity/Vol] 20 U/L 0 - 41 U/L [facility] Bilirubin [Mass/Vol] 0.3 mg/dL 0.3 - 1 .2 mg/dL [facility] Calcium [Mass/Vol] 9.1 mg/dL 8.5 - 10. 5 mg/dL [facility] Chloride [Moles/Vol] 105 mmol/L 98 - 10 9 mmol/L [facility] CO2 [Moles/Vol] 25 mmol/L 22 - 32 mmol/L [facility] Creatinine [Mass/Vol] 1.06 mg/dL High 0.40 - 1.00 mg/dL [facility] Comment on above: METHOD TRACEABLE TO [facility] STANDARD eGFR (CKD-EPI)non-race dependent 56 Low - PINF [facility] Comment on above: Reported eGFR is based on the CKD-EPI 2020 equation that does not use a race coefficient. Glucose [Mass/Vol] 111 mg/dL High 65 - 99 mg/dL [facility] Interpretation and review of laboratory results Abnormal [facility] Potassium [Moles/Vol] 3.7 mmol/L 3.5 - 5.0 mmol/L [facility] Protein [Mass/Vol] 7.2 g/dL 6.0 - 8.0 g/dL [facility] Sodium [Moles/Vol] 140 mmol/L 134 - 146 mmol/L [facility] Urea nitrogen [Mass/Vol] 18 mg/dL 5 - 27 mg/dL [facility] ESR Photometric method (Bld) [Velocity]on 11-28-2023 Interpretation and review of laboratory results Abnormal [facility] ESR, ERYTHROCYTE SEDIMENTATION RATE 78 mm/h High 0-30 [facility] Comment on above: Performed By: #### C BCA, CMP, 71917-7, 3084-1, THYR, 84266-8 #### [facility] ([id number]) [address], [address] [place] [address] Erythrocyte Sedimentation Ra te (ESR)on 11-28-2023 ESR Photometric method (Bld) [Velocity] 78 mm/h High 0 - 30 mm/h [facility] MAGNESIUMon 11-28-2023 Magnesium [Mass/Vol] 2.0 mg/dL Normal 1.8-2.6 [facility] Comment on above: Performed By: #### C BCA, CMP, , 3083-09, THYR, 80399-2 #### [facility] ([id number]) [address], [address] [place] [address] Magnesiumon 11-28-2023 Magnesium [Mass/Vol] 2.0 mg/dL 1.8 - 2 .6 mg/dL [facility] No Panel Informationon 11-27 [facility] THYROID PROFILEon 11-28-2023 Free T4 [Mass/Vol] 0.90 ng/dL Normal 0.61-1.60 [facility] Comment on above: Performed By: #### C BCA, CMP, , 3083-09, THYR, 35162-9 #### [facility] ([id number]) [address], [address] [place] [address] TSH 2.38 uIU/mL Normal 0.49-4.67 [facility] Comment on above: Performed By: #### C BCA, CMP, , 3083-09, THYR, 95641-9 #### [facility] ([id number]) [address], [address] [place] [address] Thyroid profile includes TSH FT4on 11-28-2023 Free T4 [Mass/Vol] 0.90 ng/dL 0.61 - 1.60 ng/dL [facility] TSH Qn 2.38 m[IU]/L [facility] URIC ACIDon 11-28-2023 Urate [Mass/Vol] 5.2 mg/dL Normal 2.6-7.2 [facility] Comment on above: Performed By: #### C BCA, CMP, , 3084-1, THYR, 35586-6 #### [facility] ([id number]) [address], [address] [place] [address] Uric acidon 11-28-2023 Urate [Mass/Vol] 5.2 mg/dL 2.6 - 7.2 mg/dL [facility] COVID/FLU/RSV RT-PCRon 09-01 SARS-CoV-2 (COVID-19) RNA ANGEL+probe Ql (Unsp spec) Negative [facility] [employer] Other COVID/FLU/RSV RT-PCR Negative [facility] [employer] Other COMPREHENSIVE METABOLIC PANE Bijan 12-14-2021 Albumin [Mass/Vol] 4.3 g/dL Normal 3.6-5.1 [facility] Comment on above: Performed By: #### 1 0231, 0270 #### [facility] [place] [address] [employer]: Napoleon Anne MD Albumin/Globulin [Mass ratio] 1.6 {ratio} Normal 1.0-2.5 [facility] Comment on above: Performed By: #### 1 0231, 7600 #### [facility] [place] [address] [employer]: Napoleon Anne MD ALP [Catalytic activity/Vol] 108 U/L Normal 37-153 [facility] Comment on above: Performed By: #### 1 0231, 7600 #### [facility] [place] [address] [employer]: Napoleon Anne MD ALT [Catalytic activity/Vol] 10 U/L Normal 6-29 [facility] Comment on above: Performed By: #### 1 0231, 7600 #### [facility] [place] [address] [employer]: Napoleon Anne MD AST [Catalytic activity/Vol] 14 U/L Normal 10-35 [facility] Comment on above: Performed By: #### 1 0231, 7600 #### [facility] of [address], [address] [place] [address] [employer]: Napoleon Anne MD Bilirubin [Mass/Vol] 0.5 mg/dL Normal 0.2-1.2 [facility] Comment on above: Performed By: #### 1 023, 7600 #### [facility] of [address], [address] [place] [address] [employer]: Napoleon Anne MD BUN/CREATININE RATIO NOT APPLICABLE Normal 6-22 [facility] Comment on above: Performed By: #### 1 023, 7600 #### [facility] of [address], [address] [place] [address] [employer]: Napoleon Anne MD Calcium [Mass/Vol] 9.5 mg/dL Normal 8.6-10.4 [facility] Comment on above: Performed By: #### 1 023, 7600 #### [facility] of [address], [address] [place] [address] [employer]: Napoleon Anne MD Chloride [Moles/Vol] 106 mmol/L Normal 98-110 [facility] Comment on above: Performed By: #### 1 023, 7600 #### [facility] of [address], [address] [place] [address] [employer]: Napoleon Anne MD CO2 [Moles/Vol] 29 mmol/L Normal 20-32 [facility] Comment on above: Performed By: #### 1 0231, 7600 #### [facility] of [address], [address] [place] [address] [employer] Hanger: Napoleon Anne MD Creatinine [Mass/Vol] 0.86 mg/dL Normal 0.60-0.[address] [facility] Comment on above: Result Comment: For patients >49 years of age, the reference limit for Creatinine is approximately 13% higher for people identified as -Prydeinig. Performed By: #### 1 023, 7600 #### [facility] of [address], [address] [place] [address] Chicken Hanger: Napoleon Anne MD eGFR NON-AFR. GIBRALTARIAN 68 mL/min/1.73m2 Normal > OR = 60 [facility] Comment on above: Performed By: #### 1 230, 7600 #### [facility] [place] [address] Chicken Hanger: Napoleon Anne MD GFR/1.73 sq M.predicted among blacks MDRD (S/P/Bld) [Vol rate/Area] 79 mL/min/{1.73_m2} Normal > OR = 60 [facility] Comment on above: Performed By: #### 1 230, 7600 #### [facility] [place] [address] Chicken Hanger: Napoleon Anne MD Globulin (S) [Mass/Vol] 2.7 g/dL Normal 1.9-3.7 [facility] Comment on above: Performed By: #### 1 230, 0 #### [facility] [place] [address] Chicken Hanger: Napoleon Anne MD Glucose [Mass/Vol] 100 mg/dL High 65-99 [facility] Comment on above: Result Comment: Fasting reference interval For someone without known diabetes, a glucose value between 100 and 125 mg/dL is consistent with prediabetes and should be confirmed with a follow-up test. Performed By: #### 1 230, 0 #### [facility] [place] [address] Chicken Hanger: Napoleon Anne MD Potassium [Moles/Vol] 4.1 mmol/L Normal 3.5-5.[address] [facility] Comment on above: Performed By: #### 1 023, 7600 #### [facility] [place] [address] Chicken Hanger: Napoleon Anne MD Protein [Mass/Vol] 7.0 g/dL Normal 6.1-8.1 [facility] Comment on above: Performed By: #### 1 023, 7600 #### [facility] [address], [address] [place] [address] Chicken Hanger: Napoleon Anne MD Sodium [Moles/Vol] 141 mmol/L Normal 135-146 [facility] Comment on above: Performed By: #### 1 0231, 7600 #### [facility] [address], [address] [place] [address] Chicken Hanger: Napoleon Anne MD Urea nitrogen [Mass/Vol] 14 mg/dL Normal 7-25 [facility] Comment on above: Performed By: #### 1 0231, 7600 #### [facility] [address], [address] [place] [address] Chicken Hanger: Napoleon Anne MD LIPID PANEL, [facility] 12-03 Cholesterol [Mass/Vol] 191 mg/dL Normal <200 [facility] Comment on above: Order Comment: FASTI NG:YES FASTING: YES Performed By: #### 1 0231, 7600 #### [facility] [address], [address] [place] [address] Chicken Hanger: Napoleon Anne MD Cholesterol in HDL [Mass/Vol] 63 mg/dL Normal > OR = 50 [facility] Comment on above: Order Comment: FASTI NG:YES FASTING: YES Performed By: #### 1 0231, 7600 #### [facility] [address], [address] [place] [address] Chicken Hanger: Napoleon Anne MD Cholesterol in LDL [Mass/Vol] [...] LDL-C. [place] DELCID et al. ALIREZA. 2013;310(19): 4009-0273 (http://education.Truviso/faq/HIB079) Performed By: #### 1 0231, 7600 #### [facility] [address], [address] [place] [address] Chicken Hanger: Napoleon Anne MD Cholesterol.total/Cho lesterol in HDL [Mass ratio] 3.0 {ratio} Normal <5.0 [facility] Comment on above: Order Comment: FASTI NG:YES FASTING: YES Performed By: #### 1 0231, 7600 #### [facility] [address], [address] [place] [address] Chicken Hanger: Napoleon Anne MD NON HDL CHOLESTEROL 128 mg/dL (calc) Normal <130 [facility] Comment on above: Order Comment: FASTI NG:YES FASTING: YES Result Comment: For patients with diabetes plus 1 major ASCVD risk factor, treating to a non-HDL-C goal of <100 mg/dL (LDL-C of <70 mg/dL) is considered a therapeutic option. Performed By: #### 1 0231, 7600 #### [facility] [address], [address] [place] [address] Chicken Hanger: Napoleon Anne MD Triglyceride [Mass/Vol] 146 mg/dL Normal <150 [facility] Comment on above: Order Comment: FASTI NG:YES FASTING: YES Performed By: #### 1 0231, 7600 #### [facility] [place] [address] Chicken Hanger: Napoleon Anne MD BASIC METABOLIC PANELon 10-2 0-2020 BUN/CREATININE RATIO NOT APPLICABLE Normal 6-22 [facility] Comment on above: Performed By: #### 7 18, 41498, 46384, 905, 6399, 622 #### [facility] [place] [address] Chicken Hanger: Napoleon Anne MD Calcium [Mass/Vol] 9.1 mg/dL Normal 8.6-10.4 [facility] Comment on above: Performed By: #### 7 18, 72440, 97181, 905, 6399, 622 #### [facility] [address], [address] [place] [address] Chicken Hanger: Napoleon Anne MD Chloride [Moles/Vol] 103 mmol/L Normal 98-110 [facility] Comment on above: Performed By: #### 7 18, 16527, 32310, 905, 6399, 622 #### [facility] [address], [address] [place] [address] Chicken Hanger: Napoleon Anne MD CO2 [Moles/Vol] 22 mmol/L Normal 20-32 [facility] Comment on above: Performed By: #### 7 18, 03006, 40394, 905, 6399, 622 #### [facility] [address], [address] [place] [address] Chicken Hanger: Napoleon Anne MD Creatinine [Mass/Vol] 0.93 mg/dL Normal 0.60-0.[address] [facility] Comment on above: Result Comment: For patients >49 years of age, the reference limit for Creatinine is approximately 13% higher for people identified as -Prydeinig. Performed By: #### 7 18, 97429, 02331, 905, 6399, 622 #### [facility] [place] [address] Chicken Hanger: Napoleon Anne MD eGFR NON-AFR. GIBRALTARIAN 62 mL/min/1.73m2 Normal > OR = 60 [facility] Comment on above: Performed By: #### 7 18, 41360, 69521, 905, 6399, 622 #### [facility] [address], [address] [place] [address] Chicken Hanger: Napoleon Anne MD GFR/1.73 sq M.predicted among blacks MDRD (S/P/Bld) [Vol rate/Area] 72 mL/min/{1.73_m2} Normal > OR = 60 [facility] Comment on above: Performed By: #### 7 18, 47397, 25903, 905, 6399, 622 #### [facility] of [place] [address] Chicken Hanger: Napoleon Anne MD Glucose [Mass/Vol] 100 mg/dL High 65-99 [facility] Comment on above: Result Comment: Fasting reference interval For someone without known diabetes, a glucose value between 100 and 125 mg/dL is consistent with prediabetes and should be confirmed with a follow-up test. Performed By: #### 7 18, 73792, 57015, 905, 6399, 622 #### [facility] [place] [address] Chicken Hanger: Napoleon Anne MD Potassium [Moles/Vol] 4.0 mmol/L Normal 3.5-5.[address] [facility] Comment on above: Performed By: #### 7 18, 73413, 62809, 905, 6399, 622 #### [facility] [place] [address] Chicken Hanger: Napoleon Anne MD Sodium [Moles/Vol] 139 mmol/L Normal 135-146 [facility] Comment on above: Performed By: #### 7 18, 93161, 90028, 905, 6399, 622 #### [facility] [place] [address] Chicken Hanger: Napoleon Anne MD Urea nitrogen [Mass/Vol] 15 mg/dL Normal 7-25 [facility] Comment on above: Performed By: #### 7 18, 99065, 21885, 905, 6399, 622 #### [facility] [place] [address] Chicken Hanger: Napoleon Anne MD CBC (INCLUDES DIFF/PLT)on Basophils (Bld) [#/Vol] 0.043 10*3/uL Normal 0-200 [facility] Comment on above: Performed By: #### 7 18, 11266, 44607, 905, 6399, 622 #### [facility] [place] [address] Chicken Hanger: Napoleon Anne MD Basophils/100 WBC (Bld) 0.7 % Normal [facility] Comment on above: Performed By: #### 7 18, 31672, 22914, 905, 6399, 622 #### [facility] of [place] [address] Chicken Hanger: Napoleon Anne MD Eosinophils (Bld) [#/Vol] 0.061 10*3/uL Normal 15-500 [facility] Comment on above: Performed By: #### 7 18, 32310, 86524, 905, 6399, 622 #### [facility] [place] [address] Chicken Hanger: Napoleon Anne MD Eosinophils/100 WBC (Bld) 1.0 % Normal [facility] Comment on above: Performed By: #### 7 18, 23651, 79010, 905, 6399, 622 #### [facility] [place] [address] Chicken Hanger: Napoleon Anne MD Erythrocyte distribution width (RBC) [Ratio] 14.7 % Normal 11.0-15.0 [facility] Comment on above: Performed By: #### 7 18, 48451, 89558, 905, 6399, 622 #### [facility] [place] [address] Chicken Hanger: Napoleon Anen MD Hematocrit (Bld) [Volume fraction] 41.5 % Normal 35.0-45.0 [facility] Comment on above: Performed By: #### 7 18, 81113, 01919, 905, 6399, 622 #### [facility] of [place] [address] Chicken Hanger: Napoleon Anne MD Hemoglobin (Bld) [Mass/Vol] 13.5 g/dL Normal 11.7-15.5 [facility] Comment on above: Performed By: #### 7 18, 42999, 52668, 905, 6399, 622 #### [facility] of [place] [address] Chicken Hanger: Napoleon Anne MD Lymphocytes (Bld) [#/Vol] 1.928 10*3/uL Normal 850-3900 [facility] Comment on above: Performed By: #### 7 18, 60956, 43523, 905, 6399, 622 #### [facility] of [place] [address] Chicken Hanger: Napoleon Anne MD Lymphocytes/100 WBC (Bld) 31.6 % Normal [facility] Comment on above: Performed By: #### 7 18, 56356, 60340, 905, 6399, 622 #### [facility] [place] [address] Chicken Hanger: Napoleon Anne MD MCH (RBC) [Entitic mass] 28.3 pg Normal 27.0-33.0 [facility] Comment on above: Performed By: #### 7 18, 83478, 35914, 905, 6399, 622 #### [facility] of [place] [address] Chicken Hanger: Napoleon Anne MD MCHC (RBC) [Mass/Vol] 32.5 g/dL Normal 32.0-36.[address] [facility] Comment on above: Performed By: #### 7 18, 35625, 81026, 905, 6399, 622 #### [facility] of [place] [address] Chicken Hanger: Napoleon Anne MD MCV (RBC) [Entitic vol] 87.0 fL Normal 80.0-100.0 [facility] Comment on above: Performed By: #### 7 18, 67317, 11856, 905, 6399, 622 #### [facility] of [place] [address] Chicken Hanger: Napoleon Anne MD Monocytes (Bld) [#/Vol] 0.409 10*3/uL Normal 200-950 [facility] Comment on above: Performed By: #### 7 18, 10298, 61525, 905, 6399, 622 #### [facility] of [place] [address] Chicken Hanger: Napoleon Anne MD Monocytes/100 WBC (Bld) 6.7 % Normal [facility] Comment on above: Performed By: #### 7 18, 84738, 23457, 905, 6399, 622 #### [facility] of [place] [address] Chicken Hanger: Napoleon Anne MD Neutrophils (Bld) [#/Vol] 3.66 10*3/uL Normal 2341-6438 [facility] Comment on above: Performed By: #### 7 18, 03122, 24817, 905, 6399, 622 #### [facility] of [place] [address] Chicken Hanger: Napoleon Anne MD Neutrophils/100 WBC (Bld) 60 % Normal [facility] Comment on above: Performed By: #### 7 18, 58599, 92459, 905, 6399, 622 #### [facility] of [place] [address] Chicken Hanger: Napoleon Anne MD Platelet mean volume (Bld) [Entitic vol] 10.5 fL Normal 7.5-12.5 [facility] Comment on above: Performed By: #### 7 18, 15959, 48055, 905, 6399, 622 #### [facility] of [place] [address] Chicken Hanger: Napoleon Anne MD Platelets (Bld) [#/Vol] 307 10*3/uL Normal 140-400 [facility] Comment on above: Performed By: #### 7 18, 22240, 95437, 905, 6399, 622 #### [facility] of [place] [address] Chicken Hanger: Napoleon Anne MD RBC (Bld) [#/Vol] 4.77 10*6/uL Normal 3.80-5.10 [facility] Comment on above: Performed By: #### 7 18, 12266, 46039, 905, 6399, 622 #### [facility] [address], [address] [place] [address] Chicken Hanger: Napoleon Anne MD WBC (Bld) [#/Vol] 6.1 10*3/uL Normal 3.8-10.8 [facility] Comment on above: Performed By: #### 7 18, 50701, 49657, 905, 6399, 622 #### [facility] [place] [address] Chicken Hanger: Napoleon Anne MD MAGNESIUMon 06-23-2021 Magnesium [Mass/Vol] 2.0 mg/dL Normal 1.5-2.5 [facility] Comment on above: Order Comment: FASTI NG:UNKNOWN FASTING: UNKNOWN Performed By: #### 7 18, 66925, 88937, 905, 6399, 622 #### [facility] [address], [address] [place] [address] Chicken Hanger: Napoleon Anne MD PHOSPHATE ( PHOSPHORUS)on 06-23-2021 Phosphate [Mass/Vol] 3.8 mg/dL Normal 2.1-4.3 [facility] Comment on above: Performed By: #### 7 18, 44916, 39220, 905, 6399, 622 #### [facility] [place] [address] Chicken Hanger: Napoleon Anne MD PTH, INTACT WITHOUT CALCIUMo [...] Normal High Performed By: #### 7 18, 53155, 54947, 905, 6399, 622 #### [facility] [address], [address] [place] [phone] Chicken Hanger: Napoleon Anne MD URIC ACIDon 06-23-2021 Urate [Mass/Vol] 4.8 mg/dL Normal 2.5-7.0 [facility] Comment on above: Result Comment: Ther apeutic target for gout patients: <6.0 mg/dL Performed By: #### 7 18, 08285, 30728, 905, 6399, 622 #### [facility] [address], [address] [place] [phone] Chicken Hanger: Napoleon Anne MD VITAMIN D,25-OH,TOTAL,IAon 1 VITAMIN [...] D, (D2,D3), LC/MS/MS is recommended: order code 29779 (patients >2yrs). See Note 1 Note 1 For additional information, please refer to http://education.Summon.Spotwish/faq/XWK175 (This link is being provided for informational/ educational purposes only.) Performed By: #### 7 18, 76417, 06946, 905, 6399, 622 #### [facility] [address], [address] [place] [phone] Chicken Hanger: Napoleon Anne MD Vital Signs Date Time Vital Sign Value Performing Clinician Facility 03-14-2025 09:30-0400 Body height 154.9 cm Andres Broderick DO Work Phone: [facility] [employer] [facility] 03-14-2025 09:30-0400 Body mass index (BMI) [Ratio] 39.17 kg/m2 Andres Furlong DO Work Phone: [facility] [employer] [facility] 03-14-2025 09:30-0400 Body temperature 97.5 [degF] Andres Goncalveslong DO Work Phone: [facility] 03-14-2025 09:30-0400 Body weight 93.98 kg Andres Furlong DO Work Phone: [facility] 03-14-2025 09:30-0400 Diastolic blood pressure 72 mm[Hg] Andres Furlong DO Work Phone: [facility] 03-14-2025 09:30-0400 Heart rate 87 /min Andres Sachalong DO Work Phone: [facility] 03-14-2025 09:30-0400 Respiratory rate 18 /min Andres Sachalong DO Work Phone: [facility] 03-14-2025 09:30-0400 SaO2% (BldA) [Mass fraction] 96 % Andres SachaAppierng DO Work Phone: [facility] 03-14-2025 09:30-0400 Systolic blood pressure 136 mm[Hg] Andres GoncalvesAppierng DO Work Phone: [facility] 12-10-2024 15:10-0400 Diastolic blood pressure 89 mm[Hg] [facility] 12-10-2024 15:10-0400 Heart rate 78 /min [facility] 12-10-2024 15:10-0400 Respiratory rate 16 /min [facility] 12-10-2024 15:10-0400 SaO2% (BldA) [Mass fraction] 96 % [facility] 12-10-2024 15:10-0400 Systolic blood pressure 147 mm[Hg] [facility] 12-10-2024 14:40-0400 Body temperature 97.6 [degF] [facility] 12-10-2024 14:40-0400 Inhaled oxygen flow rate 6 L/min [facility] 12-10-2024 12:40-0400 Body height 152.4 cm [facility] 12-10-2024 12:40-0400 Body weight 93.44 kg [facility] 10-03-2024 12:57-0500 Body height 154.9 cm Andres Furlong DO Work Phone: [facility] [employer] [facility] 10-03-2024 12:57-0500 Body mass index (BMI) [Ratio] 39.23 kg/m2 Andres Furlong DO Work Phone: [facility] [employer] 10-03-2024 12:57-0500 Body temperature 98.6 [degF] [facility]long DO [facility] 10-03-2024 12:57-0500 Body weight 94.17 kg Andres Furlong DO Work Phone: [facility] [employer] 10-03-2024 12:57-0500 Diastolic blood pressure 70 mm[Hg] Andres Furlong DO [facility] 10-03-2024 12:57-0500 Heart rate 98 /min Andres Furlong DO [facility] 10-03-2024 12:57-0500 Respiratory rate 18 /min Andres Furlong DO Work Phone: [facility] [employer] 10-03-2024 12:57-0500 SaO2% (BldA) [Mass fraction] 94 % Andres Furlong DO [facility] 10-03-2024 12:57-0500 Systolic blood pressure 100 mm[Hg] Andres Furlong DO [facility] 09-17-2024 09:37-0500 Body height 154.9 cm Andres Furlong DO [facility] 09-17-2024 09:37-0500 Body mass index (BMI) [Ratio] 39.38 kg/m2 Andres Furlong DO Work Phone: [facility] [employer] [facility] 09-17-2024 09:37-0500 Body weight 94.53 kg Andres Furlong DO Work Phone: [facility] [employer] [facility] 09-17-2024 09:37-0500 Diastolic blood pressure 88 mm[Hg] Andres Furlong DO Work Phone: [facility] [employer] [facility] 09-17-2024 09:37-0500 Systolic blood pressure 138 mm[Hg] Andres Furlong DO Work Phone: [facility] 02-01-2024 09:56-0400 Diastolic blood pressure 84 mm[Hg] Kate West TEACHER'S ASSISTANT-HOUSE PARENT Work Phone: [facility] 02-01-2024 09:56-0400 Systolic blood pressure 120 mm[Hg] Kate West TEACHER'S ASSISTANT-HOUSE PARENT Work Phone: [facility] 02-01-2024 09:32-0400 Body height 157.5 cm Kate West APRN-HOUSE PARENT Work Phone: [facility] 02-01-2024 09:32-0400 Body mass index (BMI) [Ratio] 37.28 kg/m2 Kate West APRN-HOUSE PARENT Work Phone: [facility] 02-01-2024 09:32-0400 Body temperature 97.9 [degF] Kate West APRN-HOUSE PARENT Work Phone: [facility] [employer] [facility] 02-01-2024 09:32-0400 Body weight 92.44 kg Kate West APRN-HOUSE PARENT Work Phone: [facility] 02-01-2024 09:32-0400 Heart rate 78 /min Kate West APRN-HOUSE PARENT Work Phone: [facility] 02-01-2024 09:32-0400 Respiratory rate 18 /min Kate PETERSONHOUSE PARENT Work Phone: [facility] [employer] [facility] 02-01-2024 09:32-0400 SaO2% (BldA) [Mass fraction] 96 % Kate PETERSONHOUSE PARENT Work Phone: [facility] [employer] [facility] 11-28-2023 09:01-0400 Body height 157.5 cm Kate PETERSONHOUSE PARENT Work Phone: [facility] [employer] [facility] 11-28-2023 09:01-0400 Body mass index (BMI) [Ratio] 37.86 kg/m2 Kate West APRN-HOUSE PARENT Work Phone: [facility] [employer] [facility] 11-28-2023 09:01-0400 Body temperature 98.01 [degF] Kate PETERSONHOUSE PARENT Work Phone: [facility] [employer] [facility] 11-28-2023 09:01-0400 Body weight 93.89 kg Kate PETERSONHOUSE PARENT Work Phone: [facility] [employer] [facility] 11-28-2023 09:01-0400 Diastolic blood pressure 70 mm[Hg] Kate PETERSONHOUSE PARENT Work Phone: [facility] [employer] [facility] 11-28-2023 09:01-0400 Heart rate 119 /min Kate PETERSONHOUSE PARENT Work Phone: [facility] [employer] [facility] 11-28-2023 09:01-0400 Respiratory rate 18 /min Kate PETERSONHOUSE PARENT Work Phone: [facility] [employer] [facility] 11-28-2023 09:01-0400 SaO2% (BldA) [Mass fraction] 95 % Kate PETERSONHOUSE PARENT Work Phone: [facility] [employer] [facility] 11-28-2023 09:01-0400 Systolic blood pressure 90 mm[Hg] Kate West APRN-HOUSE PARENT Work Phone: [facility] [employer] [facility] 11-07-2023 09:42-0500 Body height 157.48 cm [facility] 11-07-2023 09:42-0500 Body mass index (BMI) [Ratio] 37.5 kg/m2 [facility] 11-07-2023 09:42-0500 Body weight 92.98 kg [facility] 10-24-2023 11:23-0500 Diastolic blood pressure 97 mm[Hg] [facility] 10-24-2023 11:23-0500 Heart rate 107 /min [facility] 10-24-2023 11:23-0500 Respiratory rate 18 /min [facility] 10-24-2023 11:23-0500 SaO2% (BldA) [Mass fraction] 94 % [facility] 10-24-2023 11:23-0500 Systolic blood pressure 144 mm[Hg] [facility] 10-24-2023 11:19-0500 Body height 154.94 cm [facility] 10-24-2023 11:19-0500 Body weight 94.34 kg [facility] 10-03-2023 09:45-0500 Body height 154.94 cm Aldo Olexa Other [facility] 10-03-2023 09:45-0500 Body mass index (BMI) [Ratio] 39.3 kg/m2 Aldo Olexa Other [employer] [facility] [employer] Other 10-03-2023 09:45-0500 Body weight 94.35 kg Aldo Olexa Other [employer] Other 10-03-2023 09:45-0500 Body weight 94.34 kg [facility] 09-01-2022 12:45-0500 Body height 154.94 cm Tanna Paige Other [employer] Other 09-01-2022 12:45-0500 Body mass index (BMI) [Ratio] 40.24 kg/m2 Tanna Paige Other [employer] Other 09-01-2022 12:45-0500 Body weight 96.62 kg Tanna Paige Other [employer] Other 09-01-2022 12:45-0500 Diastolic blood pressure 75 mm[Hg] Tanna Paige Other [employer] Other 09-01-2022 12:45-0500 Respiratory rate 18 /min Tanna Paige Other [employer] Other 09-01-2022 12:45-0500 SaO2% (BldA) [Mass fraction] 96 % Tanna Paige Other [employer] Other 09-01-2022 12:45-0500 Systolic blood pressure 114 mm[Hg] Tanna Paige Other [employer] Other 09-28-2021 11:15-0500 Body height 154.94 cm Aldo Olexa Other [employer] Other 09-28-2021 11:15-0500 Body mass index (BMI) [Ratio] 41.75 kg/m2 Aldo Olexa Other [employer] Other 09-28-2021 11:15-0500 Body weight 100.25 kg Aldo Olexa Other [employer] Other 08-19-2021 10:30-0500 Body height 154.94 cm Aldo Olexa Other [employer] Other 08-19-2021 10:30-0500 Body mass index (BMI) [Ratio] 41.56 kg/m2 Aldo Olexa Other [employer] Other 08-19-2021 10:30-0500 Body weight 99.79 kg Aldo Wynn Other [facility] [employer] Other Encounters Encounter Date Encounter Type Care Provider Facility Start: 07-01-2025 ambulatory Haja FRITZ Facility :[facility] Start: 03-14-2025 End: 03-14-2025 Office outpatient visit 25 minutes Andres Broderick DO Work Phone: [facility] - [facility] Comment on above: Benign hypertension with stage 3a chronic kidney disease ([facility]) (Primary Dx); Mixed hyperlipidemia; Class 2 severe obesity due to excess calories with serious comorbidity and body mass index (BMI) of 39.0 to 39.9 in adult ([facility]); Calculus of gallbladder without cholecystitis without obstruction; Rheumatoid arthritis ([facility]); Chronic gastritis, presence of bleeding unspecified, unspecified gastritis type Start: 03-14-2025 End: 03-14-[address] [facility] Start: 02-17-2025 End: 02-20-2025 Telephone encounter Adia Culp [facility] Start: 02-14-2025 End: 02-16-2025 Refill Andres Broderick DO Work Phone: [facility] Start: 12-31-2024 End: 12-31-2024 ambulatory Haja FRITZ Facility:[facility] Start: 12-23-2024 End: 12-23-2024 [place] Haja FRIT[place] [place]: 12-23-2024 End: 12-23-2024 Patient encounter [facility] Start: 12-10-2024 End: 12-10-2024 Admission to same day surgery center [facility] [place] Start: 12-10-2024 End: 12-10-2024 ambulatory NON STAFF [facility] Work Phone: Start: 12-10-2024 End: 12-10-2024 ambulatory Haja FRITZ Facility:CD:[id number] Start: 12-10-2024 End: 12-10-2024 Patient encounter procedure [facility] Start: 12-10-2024 End: 12-10-2024 ambulatory Haja FRITZ [place] [place]: 12-05-2024 ambulatory Rosa Maria Tobin Facility:[facility] Start: 12-03-2024 End: 12-03-2024 ambulatory NON STAFF [facility] Work Phone: Start: 12-03-2024 End: 12-03-2024 Departed Referred [facility] Start: 11-19-2024 End: 11-19-2024 Refill Andres Broderick DO Work Phone: [place] [facility] [...] (BMI) of 39.0 to 39.9 in adult (CMS-HCC); Vitamin D deficiency; Depressive disorder Start: 10-03-2024 End: 10-03-2024 ambulatory ANDRES BRODERICK [facility] Start: 09-18-2024 End: 09-18-2024 Patient encounter procedure [facility] [address] Work Phone: Start: 09-18-2024 End: 09-18-2024 ambulatory NON STAFF [facility] Work Phone: Start: 09-17-2024 End: 09-17-2024 Patient encounter procedure Andres Broderick DO Work Phone: [facility] Comment on above: Medicare annual well ness visit, subsequent (Primary Dx); Screening for depression Start: 09-17-2024 End: 09-17-2024 ambulatory [facility] Start: 08-13-2024 End: 08-13-2024 Refill Mary Iftikhar MACHINIST SUPERVISOR OUTSIDE [facility] Comment on above: Mixed hyperlipidemia Start: 07-10-2024 End: 07-22-2024 Telephone encounter Andres Broderick DO Work Phone: [facility] Start: 02-07-2024 End: 02-07-2024 Refill Kate West TEACHER'S ASSISTANT-HOUSE PARENT Work Phone: [facility] Comment on above: Mixed hyperlipidemia Start: 02-01-2024 End: 02-01-2024 ambulatory KATE Sydni WEST [facility] Start: 02-01-2024 End: 02-01-2024 Office outpatient visit 25 minutes Kate West TEACHER'S ASSISTANT-HOUSE PARENT Work Phone: [facility] Comment on above: Situational anxiety (Primary Dx); Mixed hyperlipidemia; Essential hypertension Start: 01-25-2024 End: 02-01-2024 Telephone encounter Kate West TEACHER'S ASSISTANT-HOUSE PARENT Work Phone: [facility] Start: 01-23-2024 End: 01-23-2024 Patient encounter procedure [facility] [address] Work Phone: Start: 01-23-2024 End: 01-23-2024 ambulatory NON STAFF [facility] Work Phone: Start: 12-07-2023 Orders Only Kate West TEACHER'S ASSISTANT-HOUSE PARENT Work Phone: [facility] Comment on above: Erosive (osteo)arthr itis (Primary Dx) Start: 12-04-2023 End: 12-05-2023 ambulatory KATE WEST [facility] Start: 11-28-2023 End: 11-28-2023 ambulatory KATE WEST [facility] Comment on above: Swelling of multiple joints (Primary Dx) Start: 11-28-2023 End: 11-28-2023 Office outpatient visit 25 minutes Kate West TEACHER'S ASSISTANT-HOUSE PARENT Work Phone: [facility] Comment on above: Swelling of multiple joints (Primary Dx); Stage 3a chronic kidney disease (CMS-HCC); Palpitations Start: 11-21-2023 Refill Kate West TEACHER'S ASSISTANT-HOUSE PARENT Work Phone: [facility] Comment on above: Mixed hyperlipidemia Start: 11-07-2023 End: 11-07-2023 Patient encounter procedure [facility] Work Phone: Start: 10-24-2023 End: 10-24-2023 ambulatory NON STAFF [facility] Work Phone: Start: 10-24-2023 End: 10-24-2023 Patient encounter procedure [facility] [address] Work Phone: Start: 10-03-2023 Office outpatient vi sit 25 minutes Aldo Wynn [facility] Start: 10-03-2023 End: 10-03-2023 ambulatory NON STAFF Delivered Other Start: 10-03-2023 End: 10-03-2023 Patient encounter procedure [facility] Start: 10-03-2023 End: 10-03-2023 Patient encounter procedure [facility] Start: 08-07-2023 End: 08-07-2023 ambulatory JOSEFINA MEILSSA Not Available Start: 09-01-2022 End: 09-01-2022 ambulatory Tanna Paige Other Delivered Other Start: 09-01-2022 Office outpatient vi sit 15 minutes Tanna Paige [facility] Start: 09-28-2021 End: 09-28-2021 ambulatory Aldo Olexa Other Delivered Other Start: 09-28-2021 Office outpatient vi sit 15 minutes Aldo Olexa [facility] Start: 08-19-2021 End: 08-19-2021 ambulatory Aldo Olexa Other Delivered Other Start: 08-19-2021 Office outpatient ne w 30 minutes Aldo Olexa [facility] Start: 10-29-2020 End: 10-30-2020 Patient encounter procedure NONE LISTED REQUEST Facility: Procedures Date Procedure Procedure Detail Performing Clinician Start: 03-14-2025 Urnls dip stick/tabl et rgnt non-auto w/o micrscp Andres G Furlong DO Work Phone: Start: 03-14-2025 Adult depression scr eening assessment Anders Furlong DO Work Phone: Start: 12-10-2024 Cystoscopy Start: 12-03-2024 Urine culture Start: 09-17-2024 Adult depression scr eening assessment Andres Furlong DO Work Phone: Start: 02-01-2024 Adult depression scr eening assessment Kate West TEACHER'S ASSISTANT-HOUSE PARENT Work Phone: Start: 11-28-2023 Ecg routine ecg w/le ast 12 lds w/i&r Kate West TEACHER'S ASSISTANT-HOUSE PARENT Work Phone: Start: 11-28-2023 Adult depression scr eening assessment Kate West TEACHER'S ASSISTANT-HOUSE PARENT Work Phone: Start: 10-24-2023 MRI of right knee Start: 10-03-2023 X-ray of right knee Start: 05-12-2023 Mammography Kate West TEACHER'S ASSISTANT-HOUSE PARENT Work Phone: Start: 03-20-2023 Adult depression scr eening assessment Kate West TEACHER'S ASSISTANT-HOUSE PARENT Work Phone: Colonoscopy Haja COOK Lithotripsy using laser Doug FRITZ Removal of mole of s kin by excision Haja FRITZ Plan of Treatment Date Care Activity Detail Author Start: 03-14-2026 Adult BMI Screening Adult BMI Screen ing [facility] Start: 03-14-2026 Depression Screening Depression Scre ening [facility] Start: 03-14-2026 Fall Risk Screening Fall Risk Screen ing [facility] Start: 03-14-2026 Tobacco Screening Tobacco Screening [facility] Start: 02-19-2026 Tobacco Screening Tobacco Screening [facility] Start: 10-03-2025 Adult BMI Screening Adult BMI Screen ing [facility] Start: 10-03-2025 Tobacco Screening Tobacco Screening [facility] Start: 09-22-2025 End: 09-22-2025 Patient encounter procedure 09/22/2025 10:30 AM EST Office Visit [facility] Internal Medicine - Family Medicine [address] [place] [address] Andres Broderick, [address], [facility] [place] [address] [facility] - Family [facility] Start: 09-18-2025 End: 09-18-2025 Patient encounter procedure 09/18/2025 9:40 AM EST Office Visit [facility] [address] [place] [address] [facility] Start: 09-17-2025 Adult BMI Screening Adult BMI Screen ing [facility] Start: 09-17-2025 Depression Screening Depression Scre ening [facility] Start: 09-17-2025 Fall Risk Screening Fall Risk Screen ing [facility] Start: 09-17-2025 Medicare Annual Well ness Visit Medicare Annual Wellness Visit [facility] Start: 05-12-2025 Screening for malign ant neoplasm of breast Mammogram [facility] Start: 03-10-2025 End: 03-10-2025 Patient encounter procedure 03/10/2025 11:30 AM EDT [facility] [address] [place] [address] Andres Broderick, [address], [place] [address] [facility] Start: 01-31-2025 Adult BMI Screening Adult BMI Screen ing [facility] Start: 01-31-2025 Depression Screening Depression Scre ening [facility] Start: 01-31-2025 Fall Risk Screening Fall Risk Screen ing [facility] Start: 01-31-2025 Tobacco Screening Tobacco Screening [facility] Start: 12-10-2024 [facility] Start: 12-10-2024 Supine abdominal X-ray [facility] Start: 12-03-2024 Urine culture [facility] Start: 12-03-2024 Bacteria identified in Urine by Culture Urine Culture [facility] Start: 11-27-2024 Adult BMI Screening Adult BMI Screen ing [facility] Start: 11-27-2024 Depression Screening Depression Scre ing [facility] Start: 11-27-2024 Fall Risk Screening Fall Risk Screen ing [facility] Start: 11-27-2024 Tobacco Screening Tobacco Screening [facility] Start: 10-03-2024 End: 10-03-2024 Patient encounter procedure 10/03/2024 1:00 PM EST [facility] [address] [place] [address] Andres Broderick DO [address] [place] [address] [facility] Start: 09-18-2024 Hepatitis B core antibody measurement [facility] Start: 09-18-2024 [facility] Start: 09-03-2024 End: 09-03-2024 Patient encounter procedure 09/03/2024 9:00 AM EST Office Visit [facility] [place] [address] [facility] Start: 06-02-2024 Adult BMI Screening [facility] Start: 06-02-2024 Tobacco Screening [facility]ening [facility] Start: 03-20-2024 Depression Screening Depression Scre ening [facility] Start: 03-20-2024 Medicare Annual Well ness Visit Medicare Annual Wellness Visit [facility] Start: 03-18-2024 Fall Risk Screening Fall Risk Screen ing [facility] Start: 01-23-2024 [facility] Start: 11-28-2023 End: 11-27-2024 XR Hand - right 3 Views X-ray hand right minimum 3 views Imaging Routine Swelling of multiple joints Expected: 11/28/2023, Expires: 11/27/2024 [employer] Work Phone: Comment on above: Expected: 11/28/2023 , Expires: 11/27/2024 Start: 01-24-2013 DTaP,Tdap and Td Vaccines (1 - Tdap) DTaP,Tdap and Td Vaccines (1 - Tdap) [facility] Start: 2001 Administration of varicella zoster vaccine Zoster (Shingles) Vaccine (1 of 2) [facility] Start: 1969 Adult BMI Follow Up Plan Adult BMI F ollow Up Plan [facility] End: 10-03-2025 Basic metabolic 2000 panel - Serum or Plasma Basic Metabolic Panel Lab Routine 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 1 Occurrences starting 10/03/2024 until 10/03/2025 [employer] Work Phone: Comment on above: 1 Occurrences starti ng 10/03/2024 until 10/03/2025 CBC panel - Blood by Automated count CBC without diff Lab Routine Benign hypertension with stage 3a chronic kidney disease ([facility]) Ordered: 03/14/2025 [employer] Comment on above: Ordered: 03/14/2025 End: 03-14-2026 Comprehensive metabolic 2000 panel - Serum or Plasma Comprehensive metabolic panel Lab Routine Benign hypertension with stage 3a chronic kidney disease ([facility]) 1 Occurrences starting 03/14/2025 until 03/14/2026 [employer] Work Phone: Comment on above: 1 Occurrences starti ng 03/14/2025 until 03/14/2026 Comprehensive metabo lic 2000 panel - Serum or Plasma Comprehensive metabolic panel Lab Routine Benign hypertension with stage 3a chronic kidney disease ([facility]) 03/14/2025 10:25 AM EDT [employer] End: 10-03-2025 Hemoglobin A1c/Hemoglobin.total in Blood Hemoglobin A1c Lab Routine Impaired fasting glucose 1 Occurrences starting 10/03/2024 until 10/03/2025 [employer] Comment on above: 1 Occurrences starti ng 10/03/2024 until 10/03/2025 Hepatitis B virus surface Ab [Presence] in Serum [facility] Hepatitis B virus surface Ag [Presence] in Serum or Plasma by Immunoassay [facility] Hepatitis C virus Ig G Ab [Presence] in Serum or Plasma by Immunoassay [facility] Interferon gamma assay [facility] End: 03-14-2026 Lipid 1996 panel - Serum or Plasma Lipid profile Lab Routine Mixed hyperlipidemia 1 Occurrences starting 03/14/2025 until 03/14/2026 [employer] Comment on above: 1 Occurrences starti ng 03/14/2025 until 03/14/2026 Lipid 1996 panel - S beatris or Plasma Lipid profile Lab Routine Mixed hyperlipidemia 03/14/2025 10:25 AM EDT [employer] Magnesium [Mass/volu me] in Serum or Plasma Magnesium Lab Add-On Benign hypertension with stage 3a chronic kidney disease ([facility]) Ordered: 03/14/2025 [employer] Comment on above: Ordered: 03/14/2025 Mycobacterium tuberculosis stimulated gamma interferon [Interpretation] in Blood Qualitative [facility] Mycobacterium tuberculosis stimulated gamma interferon release by CD4+ and CD8+ T-cells [Units/volume] corrected for background in Blood [facility] Mycobacterium tuberculosis tuberculin stimulated gamma interferon [Presence] in Blood [facility] Parathyroid Hormone, intact Parathyroid Hormone, intact Lab Add-On Benign hypertension with stage 3a chronic kidney disease ([facility]) Ordered: 03/14/2025 [facility] [employer] Comment on above: Ordered: 03/14/2025 Patient Education Know your Meds [facility] Work Phone: Patient referral [facility] Work Phone: Phosphate [Mass/volu me] in Serum or Plasma Phosphorus Lab Add-On Benign hypertension with stage 3a chronic kidney disease ([facility]) Ordered: 03/14/2025 [facility] [employer] Comment on above: Ordered: 03/14/2025 POCT EKG POCT EKG ECG Rou ivone Palpitations 11/28/2023 10:12 AM EDT [employer] Work Phone: Urate [Mass/volume] in Serum or Plasma Uric acid Lab Add-On Benign hypertension with stage 3a chronic kidney disease ([facility]) Ordered: 03/14/2025 [facility] [employer] Comment on above: Ordered: 03/14/2025 Vitamin D 25 hydroxy Vitamin D 2 5 hydroxy Lab Add-On Benign hypertension with stage 3a chronic kidney disease ([facility]) Ordered: 03/14/2025 [facility] [employer] Comment on above: Ordered: 03/14/2025 Immunizations Immunization Date Immunization Notes Care Provider Anel canales 07-21-2022 Covid-19, Mrna, Lnp- s, Bivalent, Pf, 50mcg/0.5ml or 25mcg/0.25ml Kate West TEACHER'S ASSISTANT-HOUSE PARENT Work Phone: [facility] 07-21-2022 SARS-COV-2 (COVID-19 ) Vaccine, Unspecified Kate West TEACHER'S ASSISTANT-HOUSE PARENT Work Phone: [facility] 06-29-2021 Influenza Vaccine, Quadrivalent, Adjuvanted Kate West TEACHER'S ASSISTANT-HOUSE PARENT Work Phone: [facility] 11-03-2020 COVID-19, mRNA, LNP- S, PF, 30mcg/0.3mL Dose Kate West TEACHER'S ASSISTANT-HOUSE PARENT Work Phone: [facility] 10-29-2020 COVID-19, mRNA, LNP- S, PF, 100mcg/0.5mL Dose Kate West TEACHER'S ASSISTANT-HOUSE PARENT Work Phone: [employer] 06-02-2020 Influenza Vaccine, Quadrivalent, Adjuvanted Kate West TEACHER'S ASSISTANT-HOUSE PARENT [facility] Phone: [facility] 07-18-2018 Influenza, injectabl e, [place]in [place] Canine Kidney, preservative free, quadrivalent Kate West TEACHER'S ASSISTANT-HOUSE PARENT Work Phone: [facility] 07-18-2018 pneumococcal polysaccharide vaccine, 23 valent Kate West TEACHER'S ASSISTANT-HOUSE PARENT Work Phone: [facility] 02-13-2017 pneumococcal conjuga te vaccine, 13 valent Kate West TEACHER'S ASSISTANT-HOUSE PARENT Work Phone: [facility] 01-23-2013 TD(adult) unspecifie d formulation Kate West TEACHER'S ASSISTANT-HOUSE PARENT Work Phone: [facility] 05-05-1957 measles, mumps and rubella virus vaccine Haja FRITZ [facility] Payers Date Payer Category Payer Medicare [id number] 2024 Private Health Insurance [id number] 2022 Medicare AETNA MEDICARE A ETNA MEDICARE PLAN (PPO) [id number] 2022-Present [phone] [address] [place] [address] [id number] 2022 Medicare HMO [employer] MEDICARE [id number] 2022 Medicare [id number] 1958 Self-pay 1950 Unknown [id number] 2.16.840.1.892124.3.579.2. 1259 1950 Unknown [id number] 2.16.840.1.282018.3.579.2. 125 1950 Unknown [id number] 2.16.840.1.933163.3.579.2. 1286 1951 Unknown [id number] 2.16.840.1.302133.3.579.2. 1286 1951 Unknown [id number] 2.16.840.1.260790.3.579.2. 1286 1951 Unknown [id number] 2.16.840.1.320363.3.579.2. 128 1950 Unknown [id number] 2.16.840.1.640905.3.579.2. 727 1950 Unknown [id number] 2.16.840.1.623824.3.579.2. 727 1951 Unknown [id number] 2.16.840.1.817532.3.579.2. 727 1951 Unknown [id number] 2.16.840.1.998330.3.579.2. 727 1951 Unknown [id number] 2.16.840.1.485939.3.579.2. 727 1951 Unknown [id number] 2.16.840.1.738432.3.579.2. 727 1950 Unknown [id number] 2.16.840.1.139036.3.579.2. 727 1951 Unknown [id number] 2.16.840.1.307916.3.579.2. 1286 1951 Unknown [id number] 2.16.840.1.072663.3.579.2. 1286 1951 Unknown [id number] 2.16.840.1.853368.3.579.2. 1286 Private Health Insurance [facility] [id number] 2.16.840.1.027749.19 Unknown [id number] 2.16.840.1.591604.3.579.2. 593 Unknown [id number] 2.16.840.1.279906.3.579.2. 531 Unknown [id number] 2.16.840.1.417614.3.579.2. 531 Unknown [id number] 2.16.840.1.171189.3.579.2. 531 Unknown [id number] 2.16.840.1.964005.3.579.2. 531 Social History Date Type Detail Facility Start: 09-17-2024 End: 03-14-2025 Sex Assigned At [facility] Start: 08-17-2021 End: 11-28-2023 Tobacco smoking status NHIS Never smoked tobacco (finding) [facility] Start: 1950 Sex Assigned At Female F [facility] Start: 04-09-2015 End: 09-19-2024 Sex Female (finding) [facility] Start: 09-20-2019 End: 11-28-2023 Tobacco use and exposure Smokeless tobacco non-user [facility] Start: 02-01-2024 End: 03-14-2025 Alcoholic beverage intake Current drinker of alcohol (finding) [facility] Start: 09-17-2024 End: 03-14-2025 History of Social function [facility] Has the Informaat, [employer], or water 5 examples threatened to shut off services in your home in past 12Mo No [facility] Do you belong to any clubs or organizations such as christianity groups, unions, fraternal or athletic groups, or school groups? Yes [facility] Are you now , , , , never or living with a partner? [facility] How hard is it for y ou to pay for the very basics like food, housing, medical care, and heating Not hard at all [facility] Do you feel stress - tense, restless, nervous, or anxious, or unable to sleep at night because your mind is troubled all the time - these days [OSQ] Not at all [facility] [employer] Start: 09-20-2019 Alcohol Comment Social/occasional [employer] [facility] Start: 1950 Sex assigned at Not on file P [facility] Sexual O[facility] Goals Date Patient Goal Desired Activity /State Clinical Notes 12-04-2014 to 03-14-2025 Andres Broderick, DO - 03/14/2025 9:30 AM EDT Note Date & Type Note Facility 03-14-2025 History of Present illness Narrative Subjective Patient ID: Lisa Gomez is a 74 y.o. female. Lisa presents today for a CV recheck. She is concerned about her kidney function tests. She was at stage IIIA chronic kidney disease at last check. Her GFR was 50. Looking back she has had a couple GFR is less than 60 in the last 4 years. Likely has true stage IIIA chronic kidney disease. Last test was done at an outside facility for kidney stones. Overall she is feeling well. She does take medication for rheumatoid arthritis. She was having side effects with the leflunomide with diarrhea and so it was cut back to every other day. She does have heartburn frequently. It depends on what she is eating. She did try to cut back on the omeprazole to every other day but it seemed to get a little worse. Her CT scan done when she had her kidney stones did show cholelithiasis. She was unaware she had gallstones. Her mother had gallstones and from complications of gallstones. 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 The following portions of the patient's history were reviewed and updated as appropriate: allergies, current medications, past family history, past medical history, past social history, past surgical history, problem list, and medication reconciliation was completed including current medication and post discharge medication. Review of Systems Constitutional: Negative. HENT: Negative. Respiratory: Negative. Cardiovascular: Negative. Gastrointestinal: Negative. Genitourinary: Negative. Musculoskeletal: Positive for arthralgias and myalgias. Objective Physical Exam Vitals reviewed. Constitutional: General: She is not in acute distress. Appearance: Normal appearance. She is obese. She is not ill-appearing. Neck: Vascular: No carotid bruit. Cardiovascular: Rate and Rhythm: Normal rate and regular rhythm. Pulses: Normal pulses. Heart sounds: Normal heart sounds. No murmur heard. Pulmonary: Effort: Pulmonary effort is normal. No respiratory distress. Breath sounds: No wheezing, rhonchi or rales. Musculoskeletal: Cervical back: Neck supple. Lymphadenopathy: Cervical: No cervical adenopathy. Neurological: General: No focal deficit present. Mental Status: She is alert and oriented to person, place, and time. Psychiatric: Attention and Perception: Attention and perception normal. Mood and Affect: Mood and affect normal. Speech: Speech normal. Behavior: Behavior normal. Behavior is cooperative. Thought Content: Thought content normal. Cognition and Memory: Cognition normal. Judgment: Judgment normal. Assessment/Plan Lisa was seen today for check kidneys- lab done [facility]. Diagnoses and all orders for this visit: Benign hypertension with stage 3a chronic kidney disease ([facility]) - Comprehensive metabolic panel; Future - POCT urinalysis dipstick only - Comprehensive metabolic panel We had an extensive talk on chronic kidney disease due to hypertension. We talked about medications to avoid such as NSAIDs. She can use Tylenol as needed. She has stage IIIA chronic kidney disease and we need to monitor this twice a year. Mixed hyperlipidemia - Lipid profile; Future - Lipid profile Check lipid panel Class 2 severe obesity due to excess calories with serious comorbidity and body mass index (BMI) of 39.0 to 39.9 in adult ([facility]) She is obese. She would benefit from weight loss. Diet, exercise and weight loss discussed and encouraged. Patient noted to have elevated BMI and the following intervention(s) were applied: encouragement to exercise and prescribed diet education. Calculus of gallbladder without cholecystitis without obstruction We discussed the CT scan findings which showed coli lithiasis. We discussed the fact that her GERD symptoms possibly could be related to cholelithiasis. She does not really have any nausea it is more burning. We discussed getting a surgical consultation. She declined at this time but will let me know if she changes her mid Rheumatoid arthritis ([facility]) Follow up with manager protein as directed. Chronic gastritis, presence of bleeding unspecified, unspecified gastritis type We discussed risks of omeprazole with chronic kidney disease. We will try to get her off of that. I am going to start famotidine 20 mg twice a day that she can take every other day alternating with omeprazole. If she does well then she can stop the omeprazole and just take the famotidine twice a day. If that works and we can probably wean her down to the lowest effective dose. Other orders - famotidine (PEPCID) 20 mg tablet; Take 1 tablet (20 mg total) by mouth in the morning and 1 tablet (20 mg total) before bedtime. documented in this encounter [facility] 03-14-2025 Evaluation note Diagnosis Benign hypertension with stage 3a chronic kidney disease ([facility])- Primary Mixed hyperlipidemia Class 2 severe obesity due to excess calories with serious comorbidity and body mass index (BMI) of 39.0 to 39.9 in adult ([facility]) Calculus of gallbladder without cholecystitis without obstruction Rheumatoid arthritis ([facility]) Chronic gastritis, presence of bleeding unspecified, unspecified gastritis type documented in this encounter [facility]06-16-2025 Miscellaneous Notes* Telephone Encounter - Adia Culp CMA - 02/17/2025 1:22 PM EDT Please contact Dr. Fritz regarding this patient. * Telephone Encounter - Andres Broderick DO - 02/17/2025 1:22 PM EDT I called last week and left a message on Dr. Fritz's cell phone but have not heard anything back yet. Was that Dr. Fritz calling? * Telephone Encounter - Adia Culp CMA - 02/17/2025 1:22 PM EDT His MA called and she gave me the number to call cause he wanted to speak with you. * Telephone Encounter - Andres Broderick DO - 02/17/2025 1:22 PM EDT Spoke with Dr. Fritz and I am going to need to see Lisa in the office in the next couple weeks to investigate this further. I called her and left a voicemail so she should be calling soon to set up an appointment * Telephone Encounter - Adia Culp CMA - 02/17/2025 1:22 PM EDT Scheduled apt [facility] Tele[facility] encounter Note* Telephone Encounter - Adia Culp CMA - 02/17/2025 1:22 PM EDT Please contact Dr. Fritz regarding this patient. [facility]06-16-2025 Telephone encounter Note* Telephone Encounter - Andres Broderick DO - 02/17/2025 1:22 PM EDT I called last week and left a message on Dr. Fritz's cell phone but have not heard anything back yet. Was that Dr. Fritz calling? [facility]06-16-2025 Telephone encounter Note* Telephone Encounter - Adia Culp CMA - 02/17/2025 1:22 PM EDT His MA called and she gave me the number to call cause he wanted to speak with you. [facility]06-16-2025 Telephone encounter Note* Telephone Encounter - Andres Broderick DO - 02/17/2025 1:22 PM EDT Spoke with Dr. Fritz and I am going to need to see Lisa in the office in the next couple weeks to investigate this further. I called her and left a voicemail so she should be calling soon to set up an appointment [facility]06-16-2025 Telephone encounter Note* Telephone Encounter - Adia Culp CMA - 02/17/2025 1:22 PM EDT Scheduled apt [facility]04-29-2025 NotePatient Education Urology 24-Hour Urine Collection Why am I having this test? A 24-hour urine specimen is a lab test that requires you to collect all of your urine for an entireday. This is sometimes called a timed urine test. It can provide more information than a single urine sample. There are many reasons to have this test. Your health care provider may order the test to check foror monitor the following conditions: ??? High blood [...] may eat and drink normally. ??? Take mvnb-xby-jxtybme and prescription medicines only as told by your health care provider. ??? Let your health care provider know about any medicines that you are taking, including itlq-umj-odinhrq medicines, vitamins, herbs, and supplements. ??? Choose a collection day when you can be at home or when you have a place to store the urine. All urine must be collected during the testing period. How do I do a 24-hour urine collection? When you get up in the morning, urinate in the toilet and flush. Write down the time. This willbe your start time on the day of [...] provider. Document Revised: 02/25/2022 Document Reviewed: 02/25/2022 [employer] Patient Education ? 2023 [employer] 12-10-2024 NotePatient Education Nephrology Laser Therapy for Kidney Stones, [...] these instructions at home: Medicines ??? Take hrnb-iyf-guyhqkw and prescription medicines only as told by [...] keep your pee pale yellow. ? Take cvme-hki-oceqvks or prescription medicines. ? Eat foods that [...] water for a few hours after your procedure.If you have heart or kidney disease, ask [...] provider. Document Revised: 04/21/2023 Document Reviewed: 04/21/2023 [employer] Patient Education ? 2023 [employer] Laser Therapy for Kidney Stones Laser therapy [...] are painful or that are stopping you frombeing able to pee. Tell a health care provider about: ??? Any allergies you have. ??? All medicines you are taking, including vitamins, herbs, eye drops, creams, and suwb-dqv-wmgxwee medicines. ??? Any problems you or family [...] about what you may eat and drink. Thes (more content not included)...[facility]01-30-2025 History of Present illness Narrative* Andres G George, DO - 10/03/2024 1:00 PM EST Subjective Patient ID: Lisa Gomez is a 74 y.o. female. Lisa presents [...] past medical history, past social history, past surgicalhistory, problem list, and medication reconciliation was completed including current medication andpost discharge medication. Review of Systems Constitutional: Negative. [...] serious comorbidity and body mass index (BMI) of39.0 to 39.9 in adult ([facility]) She is obese. She would benefit from [...] that was good but the next time ithappens she might break a bone. She still declined further evaluation. Depressive disorder Stable. Continue current regimen [facility] History of Present illness Narrative* Andres Broderick DO - 09/17/2024 9:40 AM EST Subjective SUBJECTIVE: Patient ID: Lisa Gomez is a 74 y.o. female who presents for a Medicare Annual Wellness exam. HPI The following portions of the patient's history were reviewed and updated as appropriate: allergies, current medications, past family history, past medical history, past social history, past surgicalhistory and problem list. AWV FLOWSHEET : Lifestyle [...] Do you have a durable power of attorney recruiter?: (!) No Cognitive Screening Do you have [...] 1 year (around 09/17/2025). [facility] Miscellaneous Notes* Telephone Encounter - Andres Broderick DO - 08/13/2024 9:33 AM EST Rx sent in. She is due for a CV visit and Medicare wellness * Telephone Encounter - Pietro Levy CMA - 08/13/2024 9:33 AM EST Scheduled [facility] Telephone encounter Note* Telephone Encounter - Andres Broderick DO - 08/13/2024 9:33 AM EST Rx sent in. She is due for a CV visit and Medicare wellness [facility]12-10-2024 Telephone encounter Note* Telephone Encounter - Pietro Levy CMA - 08/13/2024 9:33 AM EST Scheduled [facility]11-06-2024 Miscellaneous Notes* Telephone Encounter - Jennifer Ventura - 07/10/2024 2:44 PM EST ----- Message from JOSSELYN Babcock sent at 02/01/2024 1:08 PM EDT ----- Regarding: cv Due late jul, early aug 27 with fasting labs * Telephone Encounter - Jennifer Ventura - 07/10/2024 2:44 PM EST LM on VM * Telephone Encounter - Jennifer Ventura - 07/10/2024 2:44 PM EST LM on VM * Telephone Encounter - Jennifer Ventura - 07/10/2024 2:44 PM EST LM on VM/ called 3 times [facility] Telephone encounter Note* Telephone Encounter - Jennifer Ventura - 07/10/2024 2:44 PM EST ----- Message from JOSSELYN Babcock sent at 02/01/2024 1:08 PM EDT ----- Regarding: cv Due late jul, early aug 27 with fasting labs [facility]11-06-2024 Telephone encounter Note* Telephone Encounter - Jennifer Ventura - 07/10/2024 2:44 PM EST LM on VM [facility]11-06-2024 Telephone encounter Note* Telephone Encounter - Jennifer Ventura - 07/10/2024 2:44 PM EST LM on VM [employer] [id number] Telephone encounter Note* Telephone Encounter - Jennifer Ventura - 07/10/2024 2:44 PM EST LM on VM/ called 3 times [employer] [id number] History of Present illness Narrative* Kate West, TEACHER'S ASSISTANT-HOUSE PARENT - 02/01/2024 9:40 AM EDT Subjective Patient ID: Lisa Gomez is a 73 y.o. female. She has [...] past medical history, past social history, past surgicalhistory, problem list, and medication reconciliation was completed including current medication andpost discharge medication. Review of Systems Constitutional: Negative. [...] so does use this regularly, she does onlyuse this situationally Will refill today Also will recheck her labs to determine if her cholesterol is stable, she is tolerating her medication well Her blood pressure is stable, no changes made today, her cmp is also drawn The OARRS/MAPPS database was reviewed today and found to be appropriate. No indication of medication diversion, or non compliance. JOSSELYN Gomez 02/01/24 1309 documented in this encounter[facility]05-[facility] Miscellaneous Notes* Telephone Encounter - Jennifer Ventura - 01/25/2024 12:30 PM EDT ----- Message from JOSSELYN Gomez sent at 01/25/2024 9:21 AM EDT ----- Regarding: prescription She called in for a refill of ativan today, it hasn't been filled since Jul 26. This is a controlled substance. After that much time it cannot simply be refilled without an apt. - Kate * Telephone Encounter - Jennifer Ventura - 01/25/2024 12:30 PM EDT Has appointment 01/31, do you want to wait till then to fill * Telephone Encounter - JOSSELYN Gomez - 01/25/2024 12:30 PM EDT I cannot fill it until she is seen, it is a controlled substance. * Telephone Encounter - Jennifer Ventura - 01/25/2024 12:30 PM EDT Then she will have to wait you dont have anything open any sooner * Telephone Encounter - JOSSELYN Gomez - 01/25/2024 12:30 PM EDT She could come in tomorrow or even to a telehealth tomorrow this is a pretty simple apt * Telephone Encounter - Jennifer Ventura - 01/25/2024 12:30 PM EDT LM on VM documented in [facility] Telephone encounter Note* Telephone Encounter - Jennifer Ventura - 01/25/2024 12:30 PM EDT ----- Message from JOSSELYN Gomez sent at 01/25/2024 9:21 AM EDT ----- Regarding: prescription She called in for a refill of ativan today, it hasn't been filled since Jul 26. This is a controlled substance. After that much time it cannot simply be refilled without an apt. - Kate [facility]05-23-2024 Telephone encounter Note* Telephone Encounter - eJnnifer Ventura - 01/25/2024 12:30 PM EDT Has appointment 01/31, do you want to wait till then to fill [facility]05-23-2024 Telephone encounter Note* Telephone Encounter - Kate WestJOSSELYN - 01/25/2024 12:30 PM EDT I cannot fill it until she is seen, it is a controlled substance. [facility]05-23-2024 Telephone encounter Note* Telephone Encounter - Jennifer Ventura - 01/25/2024 12:30 PM EDT Then she will have to wait you dont have anything open any sooner [facility]05-23-2024 Telephone encounter Note* Telephone Encounter - Kate WestJOSSELYN - 01/25/2024 12:30 PM EDT She could come in tomorrow or even to a telehealth tomorrow this is a pretty simple apt [facility]05-23-2024 Telephone encounter Note* Telephone Encounter - Jennifer Ventura - 01/25/2024 12:30 PM EDT LM on VM [facility]03-26-2024 History of Present illness Narrative* Kate West, TEACHER'S ASSISTANT-HOUSE PARENT - 11/28/2023 9:00 AM EDT Subjective Patient ID: Lisa Gomez is a 73 y.o. female. For the [...] but not typically, it was missing beats whenit was racing when she came in today - she hasn't been lightheaded or dizzy No chest pain or pressure, no shortness of breath No change in bowels, she has had urinary urgency and incontinence for some time The following portions of the patient's history were reviewed and updated as appropriate: allergies, current medications, past family history, past medical history, past social history, past surgicalhistory, problem list, and medication reconciliation was completed including current medication andpost discharge medication. Review of Systems Constitutional: Negative [...] increased warmth of the joints and tenderness ofthe joints and decreased flexion of the joints [...] acid; Future Stage 3a chronic kidney disease ([facility]) - Comprehensive metabolic panel; Future - Magnesium; [...] JOSSELYN Gomez 11/28/23 1217 [facility] [id number] Evaluation note* Encounter Date Diagnosis Assessment Notes [...] pain of right knee (ICD-10 - M25.561) Delivered Other 12-29-2022 Evaluation note* Encounter Date Diagnosis [...] care provider if no improvement of symptoms. Delivered Other 01-25-2022 Evaluation note* Encounter Date Diagnosis [...] derangement of left knee (ICD-10 - M23.92) Delivered Other 12-16-2021 Evaluation note* Encounter Date Diagnosis [...] derangement of left knee (ICD-10 - M23.92) Delivered Other 04-02-2015 History general Narrative - Reported* Type Description Date Medical History HTN Medical History Hyperlipidemia Medical History Basal Cell carcinoma of scalp Surgical History basal cell carcinoma of scalp ( Dr Llanos) 12/04/14 Delivered Other Evaluation + Plan note No data available for this section [facility] Evaluation + Plan note Future Appointments Appointment Date:12/31/2024 01:30:00 PM Scheduled Provider:Haja FRITZ MD Location:[facility] Appointment Type:URO [facility] evaluation noteNo assessment information available [facility] Work Phone: evaluation note* Diagnosis Onset Date Resolution Status Acute medial meniscus tear of right knee acute Arthritis of right knee acut e [facility] Work Phone: evaluation note* Diagnosis Medicare annual wellness visit, subsequent- Primary Screening for depression documented in this encounter [email or web address] [employer] SystemEvaluation note* Diagnosis 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- Primary Impaired fasting glucose Anxiety Anxiety state, unspecified Chronic gastritis, presence of bleeding unspecified, unspecified gastritis type Class 2 severe obesity due to excess calories with serious comorbidity and body mass index (BMI) of 39.0 to 39.9 in adult ([facility]) Vitamin D deficiency Depressive disorder Depressive disorder, not elsewhere classified documented in this encounter [facility] [employer] SystemEvaluation note* Diagnosis Mixed hyperlipidemia [facility]* Diagnosis Situational anxiety- Primary Mixed hyperlipidemia Essential hypertension Unspecified essential hypertension [facility] [facility]* Diagnosis Mixed hyperlipidemia [facility] [employer] [facility]* Diagnosis Swelling of multiple joints- Primary Stage 3a chronic kidney disease ([facility]) Palpitations [facility] [employer] [facility]* Diagnosis Swelling of multiple joints- Primary documented in this encounter [facility] [employer] System[employer] note* Diagnosis Erosive (osteo)arthritis- Primary [facility] this encounter [facility]* Diagnosis Erosive (osteo)arthritis- Primary [facility] Diagnosis Mixed hyperlipidemia [facility] Additional Instructions DISCHARGE INSTRUCTIONS FOR URETEROSCOPY, LASER LITHOTRIPSY, STONE EXTRACTION, AND STENT PLACEMENT There are no incisions or dressings to be concerned with, as the procedure was performed inside the urinary system. For 24 hours after surgery: -No driving or operating machinery. -Do not make important decisions. -Do not consume alcohol, sleeping pills. STENT PLACEMENT -you may have a stent which spans the distance between your bladder and your kidney, allowing urine to pass through. It prevents blockage from swelling, kidney stones in the ureter (tube connecting the kidney to the bladder), or scars. The presence of the stent may cause: -Back or side pain, especially with urination. -Frequent or urgent urination. -Bladder pressure or pain. -Blood in the urine. -You may pass stone debris or small blood clots, which is expected. -Drinking plenty of water to dilute the urine may help. -If there is a thread coming out of the urinary channel, be careful not to accidentally pull on this, as it is attached to the stent. -The stent will most likely be removed in office during a short procedure in which a scope is placed into the bladder, the stent is grasped, and removed. At other times the stent may need to stay in longer, either in preparation for other procedures, or for other reasons. If it is to remain shelter, however, changes of the stent are required (about every 3-4 months). DIET You may resume your normal diet, but you may want to start slowly and avoid spicy food, caffeine, carbonated beverages, and alcohol- especially if you have a stent. Your diet and fluid intake may make irritation form the stent worse. ACTIVITY You may resume your normal activities, although you should take it easy on the day of the procedure. Minimizing activity may decrease the back discomfort and irritation from the stent, if present. MEDICATIONS -You may resume your home medications unless instructed otherwise. -[Hold aspirin, ibuprofen, Coumadin (warfarin), and other blood thinners until your office visit (we'll discuss when to resume these medications).] -Take your prescribed medications as directed, including your antibiotics. You may also be given a prescription for pain medicine, or medicines to help with the bladder irritation from the stent, if present. THINGS TO WATCH FOR WHICH WOULD REQUIRE AN EMERGENCY ROOM VISIT (OR CALL 911) (This is not a complete list) -Fever over 101.5 degrees Fahrenheit, with or without chills. -Severe bleeding. -Severe drug reactions with itching, hives, or rash, or severe flank pain. -Tenderness or swelling of the calves, chest pain, or shortness of breath. FOLLOW UP -[Please call my office to arrange for an abdominal X-ray prior to your visit in six months} [ ][facility] Work Phone: Hospital Discharge instructions No data available for this section [facility] InstructionsNot on filedocumented in this encounter [facility] on filedocumented in this encounter [facility] No data available for this section [facility] Reason for referral (narrative)* Consultation (Routine) - Pending Review Specialty Diagnoses / Procedures Referred By Boyd kennedy Referred To Contact Rheumatology Diagnoses Erosive (osteo)arthritis Kate West APRN-FAUSTINA [address] [place] [address] Dax Coello MD [address] [place] [address] Referral ID Status Reason Start Date Expiration Date Visits Requested Visits Authorized [id number] Pending Review Specialty Services Required 12/07/2023 12/06/2024 1 1 [facility] Summary Purpose Family History No Family History Records Found Relationship Condition Age at Onset Recorded Date/T bruce father Hypertension Unknown Heart disease Unknown Unknown Not Specified Unknown Hypertension Unknown natural son Malignant neoplasm Unknown Relationship Condition Age at Onset Recorded Date/T bruce father Hypertension Unknown Heart disease Unknown Unknown mother Unknown Hypertension Unknown son Malignant neoplasm Unknown Advance Directives No Advanced Directives Records Found Advance Directive Response Recorded Date/ Time Advance Directives No August 8:21pm Advance Directive Response Recorded Date/ Time Advance Directives No August 9:21pm Chief Complaint and Reason for Visit Chief Complaint Op Quality Assurance Monitor Chassis Rt Knee Pain N x M25.561 M17.11 Chief Complaint MRI RESULTS r31.29 Reason for Visit Acute medial meniscu s tear of right knee Arthritis of right knee Chief Complaint Admit Date soof September 18, 2024 2 :09pm Unknown December 03, 2024 9:43 pm Chief Complaint Admit Date soof September 18, 2024 2 :09pm Unknown December 03, 2024 9:43 pm right kidney stone December 10, 2024 12:1 2pm Additional Source Comments INFORMATION SOURCE (unrecogn ized section and content) DATE CREATED AUTHOR 10/27/2020 [facility] DATE CREATED AUTHOR AUTHOR'S ORGANIZ ATION 12/15/2021 [facility] DATE CREATED AUTHOR AUTHOR'S ORGANIZ ATION 08/08/2023 [facility] d[facility] Special[facility] DATE CREATED AUTHOR AUTHOR'S ORGANIZ ATION 12/05/2023 [facility] DATE CREATED AUTHOR AUTHOR'S ORGANIZ ATION 10/06/2024 [facility] DATE CREATED AUTHOR AUTHOR'S ORGANIZ ATION 12/22/2024 [facility] DATE CREATED AUTHOR AUTHOR'S ORGANIZ ATION 01/01/2025 [facility] DATE CREATED AUTHOR AUTHOR'S ORGANIZ ATION 03/18/2025 [facility] REASON FOR VISIT (unrecogniz ed section and content) Reason Comments MAW Reason Comments Hypothyroidism Hypertension Reason Comments Med Refill Reason Comments Follow-up medication Reason Comments swallen finger ,toes hands thighs Reason Onset Date Comments Med Refill 08/13/2024 Reason Comments check kidneys- lab done [facility] Care Teams (unrecognized sec tion and content) [...] September 18, 2024 End: September 18, 2024 Pipefitter Welder Relationship Specialty Start Date End Date Andres Broderick DO [address] [facility] [place] [address] PCP - General 10/01/24 Pipefitter Welder Relationship Specialty Start Date End Date Kate West, CARLOS ALBERTO-HOUSE PARENT [address] [place] [address] PCP - General Family Medicine 08/01/18 Pipefitter Welder Relationship Specialty Start Date End Date Kate West, TEACHER'S ASSISTANT-HOUSE PARENT [address] [facility] [place] [address] PCP - General Family Medicine 08/01/18 Pipefitter Welder Relationship Specialty Start Date End Date Kate West, TEACHER'S ASSISTANT-HOUSE PARENT [address] [place] [address] PCP - General Family Medicine 08/01/18 Pipefitter Welder Relationship Specialty Start Date End Date Kate West, TEACHER'S ASSISTANT-HOUSE PARENT [address] [place] [address] PCP - General Family Medicine 08/01/18 Pipefitter Welder Relationship Specialty Start Date End Date Kaet West, TEACHER'S ASSISTANT-HOUSE PARENT [address] [place] [address] PCP - General Family Medicine 08/01/18 Pipefitter Welder Relationship Specialty Start Date End Date Andres Broderick DO [address] [place] [place] [address] PCP - General 10/01/24 Team Status: Inactive Member Role Status Dates Shobha Pritchett PA-C Attending Provider Active Start: December 03, 2024 End: December 03, 2024 Team Status: Active Member Role Status Dates Andres Broderick DO Primary Care Provider Active Team Status: Inactive Member Role Status Dates Haja Fritz MD Attending Provider Active St art: December 10, 2024 End: December 10, 2024 Andres Broderick DO Primary Care Provider Active Start: December 10, 2024 End: December 10, 2024 Pipefitter Welder Relationship Specialty Start Date End Date Andres Broderick DO [address], [place] [address] PCP - General 10/01/24 Pipefitter Welder Relationship Specialty Start Date End Date Andres Broderick DO [address], [place] [address] PCP - General 10/01/24 Goals (unrecognized section [...] BE BASED ON THE PRIMARY CLINICAL RECORDS. [facility]. provides no warranty or guarantee of the accuracy or completeness of information in this document.
--- NOTE | 2025-04-29 14:41 | PC.NURSE ---
Dr. Miguel at bedside with pt at this time to apply walking boot to pt.
--- NOTE | 2025-04-29 15:36 | PC.NURSE ---
pt provided with crutches for foot fracture. pt verbalizes and demonstrated understanding of crutch walking. pt steady while ambulating with crutches. denies questions for this RN prior to discharge.
--- NOTE | 2025-04-29 17:29 | ED.GENADUL1 ---
HPI HPI - General Adult General Chief complaint: Extremity Injury, Lower Stated complaint: FALL R FOOT PAIN Time Seen by Provider: 04/29/25 14:26 Source: patient Mode of arrival: Wheelchair Limitations: no limitations History of Present Illness HPI narrative: Patient is a 74-year-old female presenting to the emergency department for concerns of right foot injury. Patient states she tripped, fell, and injured her right foot approximately 24 hours ago. She has been ambulatory since the event. She states she has had worsening pain/swelling in the right foot, which prompted her ED visit. She denies any other injuries. She did not hit her head or lose consciousness. She is otherwise asymptomatic. She denies any previous surgeries to the foot. She denies numbness/tingling/weakness in the extremity. Related Data Home Medications ?Medication ?Instructions ?Recorded ?Confirmed amlodipine 10 mg tablet 10 mg PO DAILY 04/29/25 04/29/25 famotidine 20 mg tablet 20 mg PO BID 04/29/25 04/29/25 fluoxetine 20 mg capsule mg 04/29/25 Allergies Allergy/AdvReac Type Severity Reaction Status Date / Time lisinopril Allergy Severe Swelling Verified 04/29/25 13:20 of Lip/Tongue/Throat Opioid HPI Opioid Management Most Recent Opioid Data: Last Pain Scale 6 Today, 14:28 Review of Systems ROS Status of ROS 10 or more systems reviewed and unremarkable except as noted in history and below PFSH PFS Social History Little interest or pleasure in doing things: not at all Feeling down, depressed, or hopeless: not at all Exam Narrative Exam Narrative: CONSTITUTIONAL: Well-appearing, answering questions and following commands appropriately SKIN: Was warm and dry. EYES: Sclerae white. EARS, NOSE, THROAT: Moist oral mucosa. RESPIRATORY: Nonlabored respirations. CARDIOVASCULAR: 2+ DP pulses bilaterally. GASTROINTESTINAL: Abdomen is nondistended. MUSCULOSKELETAL: There is significant soft tissue swelling, tenderness, and ecchymosis of the right foot. There is tenderness palpation throughout the midfoot. No obvious deformities. Compartments are soft and compressible. Full range of motion throughout the right foot and ankle NEUROLOGIC: Patient is awake and alert. Equal strength and sensation to light touch that the bilateral feet/ankles. Constitutional Vital Signs, click to edit/add: Last Vital Signs Temp 98.6 F 04/29/25 13:31 Pulse 80 04/29/25 13:31 Resp 16 04/29/25 13:31 BP 142/91 H 04/29/25 13:31 Pulse Ox 97 04/29/25 13:31 O2 Del Method Room Air 04/29/25 13:31 Course Vital Signs Vital signs: Vital Signs Temperature 98.6 F 04/29/25 13:31 Pulse Rate 80 04/29/25 13:31 Respiratory Rate 16 04/29/25 13:31 Blood Pressure 142/91 H 04/29/25 13:31 Pulse Oximetry 97 04/29/25 13:31 Oxygen Delivery Method Room Air 04/29/25 13:31 Temperature 98.6 F 04/29/25 13:31 Pulse Rate 80 04/29/25 13:31 Respiratory Rate 16 04/29/25 13:31 Blood Pressure 142/91 H 04/29/25 13:31 Pulse Oximetry 97 04/29/25 13:31 Oxygen Delivery Method Room Air 04/29/25 13:31 Medical Decision Making [facility] Narrative Medical decision making narrative: Patient is a 74-year-old female presenting to the emergency department for evaluation of a right foot injury s/p mechanical fall from standing height 24 hours ago. Vital signs on arrival are within normal limits. She is afebrile and hemodynamically stable. Examination as noted above. The foot is neurovascularly intact with good distal perfusion/strength and sensation. No evidence of ligamentous injury. Differential diagnose includes ankle sprain, foot fracture, contusion, or other osseous abnormalities. X-rays were obtained. Patient just took a Tylenol prior to arrival. X-rays of the right foot/ankle independently reviewed and interpreted by myself and reviewed by radiology demonstrates angulated fracture of the neck of the second metatarsal. Potential small fractures of the bases of the third and fourth proximal phalanges. Subluxation of the third and fourth metatarsophalangeal joints. At this time, the patient was placed in an aircast boot for immobilization. Instructed the patient be nonweightbearing until she can follow-up with podiatry. She was instructed follow-up with a product marketing executive as soon as possible, and was given a referral to product marketing executive Dr. Del Cid. Return precautions were given including any new or concerning symptoms. Patient understands and agrees to the plan. FINAL IMPRESSION: #Acute left second metatarsal fracture DISPOSITION: Discharged home with podiatry referral CONDITION: Good Medical Records Medical records reviewed: Yes I reviewed the patient's medical records Imaging Data left foot xray: Attestation: I personally reviewed and interpreted this imaging study as follows: Radiologist's impression: ITS Impressions Ankle X-Ray 04/29/25 13:35 IMPRESSION: No acute findings. 3 views right foot Angulated fracture of the neck of the second metatarsal. Potential small fractures of the bases of the third and fourth proximal phalanges. Mild degeneration. Calcaneal spurring. Soft tissue swelling. IMPRESSION: Second metatarsal neck fracture. Small fracture fragments of the bases of the third and fourth proximal phalanges. Subluxation of the third and fourth metatarsophalangeal joints. Impression dictated by: Luis Eduardo Oates M.D. 04/29/2025 2:21 PM Dictation Location: [facility] Electronically authenticated by: [id number] Y Date: 04/29/2025 14:21 Foot X-Ray 04/29/25 13:35 IMPRESSION: No acute findings. 3 views right foot Angulated fracture of the neck of the second metatarsal. Potential small fractures of the bases of the third and fourth proximal phalanges. Mild degeneration. Calcaneal spurring. Soft tissue swelling. IMPRESSION: Second metatarsal neck fracture. Small fracture fragments of the bases of the third and fourth proximal phalanges. Subluxation of the third and fourth metatarsophalangeal joints. Impression dictated by: Luis Eduardo Oates M.D. 04/29/2025 2:21 PM Dictation Location: [facility] Electronically authenticated by: [id number] Y Date: 04/29/2025 14:21 Discharge Plan Discharge Chief Complaint: Extremity Injury, Lower Clinical Impression: Foot fracture, right Qualifiers: Encounter type: initial encounter Fracture type: closed Qualified Code(s): S92.901A - Unspecified fracture of right foot, initial encounter for closed fracture Patient Disposition: Home, Self-Care Time of Disposition Decision: 14:48 Condition: Good Mode of Transportation: Private Vehicle Prescriptions / Home Meds: No Action amlodipine 10 mg tablet 10 mg PO DAILY famotidine 20 mg tablet 20 mg PO BID fluoxetine 20 mg capsule Print Language: Welsh Instructions: Foot Fracture in Adults (ED) Additional Instructions: Follow up with podiatry in 3-[address] Del Cid. Referrals: SUNI VAZQUEZ [Primary Care Provider, Family Practice] - 1 week Nikhil Del Cid DPM [Physician, Podiatry] - 1 week Discharge Date/Time: 04/29/25 15:40
== END 2025-04-29 15:40 | disposition home or self-care (01) ==
PROVIDERS: Emergency Provider Student in an Organized Health Care Education/Training Program; PCP Family Medicine
DX: S92.321A Displaced fracture of second metatarsal bone, right foot, initial encounter for closed fracture (principal); W01.0XXA Fall on same level from slipping, tripping and stumbling without subsequent striking against object, initial encounter
CPT/HCPCS: 73610; 73630; 99283

== ENCOUNTER 2025-06-04 13:27 | Outpatient (OUT) | payer MEDICARE, SELFPAY ==
[2025-06-04 13:59] LABS: Hematocrit 35.7 % (36.0-48.0); Hemoglobin 11.9 g/dL (12.0-16.0); Immature Granulocytes Abs Auto 0.01 10^3/uL (0.00-0.03); Immature Granulocytes Pct Auto 0.2 % (0.0-0.5); Lymphocytes Absolute Auto 1.1 10^3/uL (1.2-3.8); Mean Corpuscular HGB Conc 33.3 g/dL (29.9-35.2); Mean Corpuscular Hemoglobin 30.1 pg (26.7-34.0); Mean Corpuscular Volume 90.2 fL (81.0-99.0); Platelet Count 290 10^3/uL (150-450); Red Blood Count 3.96 10^6/uL (4.20-5.40); White Blood Count 4.1 10^3/uL (4.0-11.0)
[2025-06-04 14:18] LABS: Alanine Aminotransferase 32 U/L (14-59); Albumin Globulin Ratio 0.9; Albumin Level 3.4 g/dL (3.4-5.0); Alkaline Phosphatase 145 U/L (46-116); Anion Gap 12.3; Aspartate Amino Transferase 29 U/L (15-37); Blood Urea Nitrogen 17.0 mg/dL (7.0-18.0); Calcium 8.7 mg/dL (8.5-10.1); Carbon Dioxide 26.9 mmol/L (21.0-32.0); Chloride 106 mmol/L (98-107); Estimated GFR (African America >60 (>=60 mL/min/1.73m^2); Estimated GFR (Non-African Ame 52 (>=60 mL/min/1.73m^2); Globulin 3.7 g/dL; Glucose 114 mg/dL (74-106); Potassium 4.2 mmol/L (3.5-5.1); Sodium 141 mmol/L (136-145); Total Protein 7.1 g/dL (6.4-8.2)
== END 2025-06-04 13:28 | disposition home or self-care (01) ==
LOC: LAB 13:28
PROVIDERS: PCP Family Medicine; Visit Provider Internal Medicine Rheumatology
DX: M05.79 Rheumatoid arthritis with rheumatoid factor of multiple sites without organ or systems involvement (principal); Z79.899 Other long term (current) drug therapy
CPT/HCPCS: 36415; 80053; 85025; 85652